=== PATIENT | male | born 1945 | race Caucasian/White ===

== ENCOUNTER → 2021-11-22 12:40 | Outpatient (BNVA) | payer MEDICARE, SELFPAY | PROVIDERS: PCP Internal Medicine; Visit Provider Student in an Organized Health Care Education/Training Program | DX: L40.50 Arthropathic psoriasis, unspecified (principal) | CPT/HCPCS: 99212 ==

== ENCOUNTER 2021-12-13 08:26 | Outpatient (REF) | payer MEDICARE, SELFPAY ==
--- NOTE | ~2021-12-13 | XR_ITS ---
EXAMINATION: XR ANKLE, RIGHT XR ANKLE, LEFT XR FOOT, RIGHT XR FOOT, LEFT CLINICAL INFORMATION: Arthropathic psoriasis. COMPARISON: None. TECHNIQUE: AP, oblique, and lateral views of the right and left ankle. AP, oblique, and lateral views of the right and left foot. FINDINGS: Right Ankle: No acute fracture or dislocation. The ankle mortise is maintained. No joint space narrowing or marginal osteophytes. No osseous erosion. No abnormal soft tissue calcification. Mild circumferential soft tissue swelling. Left Ankle: No acute fracture or dislocation. The ankle mortise is maintained. No joint space narrowing or marginal osteophytes. No osseous erosion. No abnormal soft tissue calcification. Mild circumferential soft tissue swelling. Right Foot: No acute fracture or dislocation. First metatarsophalangeal and hallux sesamoid joint space narrowing with marginal osteophytes. No osseous erosion. Plantar calcaneal spur. Left Foot: No acute fracture or dislocation. First metatarsophalangeal and hallux sesamoid joint space narrowing with marginal osteophytes. Mild degenerative spurring at the dorsal midfoot. No osseous erosion. Tiny plantar calcaneal spur. XR/XR ankle LT 2V IMPRESSION: RIGHT ANKLE: Mild circumferential soft tissue swelling without acute osseous abnormality. LEFT ANKLE: Mild circumferential soft tissue swelling without acute osseous abnormality. 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 No osseous erosion. 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 Mild degenerative spurring at the dorsal midfoot. No osseous erosion.
--- NOTE | ~2021-12-13 | XR_ITS ---
EXAMINATION: XR ANKLE, RIGHT XR ANKLE, LEFT XR FOOT, RIGHT XR FOOT, LEFT CLINICAL INFORMATION: Arthropathic psoriasis. COMPARISON: None. TECHNIQUE: AP, oblique, and lateral views of the right and left ankle. AP, oblique, and lateral views of the right and left foot. FINDINGS: Right Ankle: No acute fracture or dislocation. The ankle mortise is maintained. No joint space narrowing or marginal osteophytes. No osseous erosion. No abnormal soft tissue calcification. Mild circumferential soft tissue swelling. Left Ankle: No acute fracture or dislocation. The ankle mortise is maintained. No joint space narrowing or marginal osteophytes. No osseous erosion. No abnormal soft tissue calcification. Mild circumferential soft tissue swelling. Right Foot: No acute fracture or dislocation. First metatarsophalangeal and hallux sesamoid joint space narrowing with marginal osteophytes. No osseous erosion. Plantar calcaneal spur. Left Foot: No acute fracture or dislocation. First metatarsophalangeal and hallux sesamoid joint space narrowing with marginal osteophytes. Mild degenerative spurring at the dorsal midfoot. No osseous erosion. Tiny plantar calcaneal spur. XR/XR foot LT min 3V IMPRESSION: RIGHT ANKLE: Mild circumferential soft tissue swelling without acute osseous abnormality. LEFT ANKLE: Mild circumferential soft tissue swelling without acute osseous abnormality. 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 No osseous erosion. 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 Mild degenerative spurring at the dorsal midfoot. No osseous erosion.
--- NOTE | ~2021-12-13 | XR_ITS ---
EXAMINATION: XR SACROILIAC JOINTS CLINICAL INFORMATION: Arthropathic psoriasis. COMPARISON: None TECHNIQUE: 3 views of the sacroiliac joints. FINDINGS: No acute fracture or dislocation. No significant sacroiliac joint space narrowing or marginal osteophytes. No osseous erosion. No concerning lytic or blastic osseous lesion. Phleboliths within the pelvis. 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 XR/XR sacroiliac joint min 3V IMPRESSION: Unremarkable sacroiliac joints. 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
--- NOTE | ~2021-12-13 | XR_ITS ---
EXAMINATION: XR HAND/WRIST, RIGHT XR HAND/WRIST, LEFT CLINICAL INFORMATION: Arthropathic psoriasis. COMPARISON: None. TECHNIQUE: AP, oblique, lateral, and scaphoid views of the right and left hand/wrist. FINDINGS: Right Hand/Wrist: No acute fracture or dislocation. Normal carpal alignment. Severe joint space narrowing with subchondral sclerosis and marginal osteophytes at the triscaphe joint with more [id number] joint space narrowing and marginal osteophytes at the 1st carpometacarpal joint as well as scattered throughout the metacarpophalangeal and interphalangeal joints. No osseous erosion. Mild radiocarpal chondrocalcinosis. Left Hand/Wrist: No acute fracture or dislocation. Severe joint space narrowing with marginal osteophytes at the triscaphe joint with more moderate findings at the 1st carpometacarpal joint. [id number] joint space narrowing with marginal osteophytes scattered throughout the metacarpophalangeal and interphalangeal joints, most prominent at the 3rd metacarpophalangeal joint. No significant osseous erosion. Radiocarpal chondrocalcinosis. 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 No osseous erosion. Radiocarpal chondrocalcinosis. LEFT HAND/WRIST: Severe osteoarthritis at the triscaphe joint with more moderate osteoarthritis at the 1st carpometacarpal joint and [id number] osteoarthritis throughout the metacarpophalangeal and interphalangeal joints. No osseous erosion. Radiocarpal chondrocalcinosis.
--- NOTE | ~2021-12-13 | XR_ITS ---
EXAMINATION: XR ANKLE, RIGHT XR ANKLE, LEFT XR FOOT, RIGHT XR FOOT, LEFT CLINICAL INFORMATION: Arthropathic psoriasis. COMPARISON: None. TECHNIQUE: AP, oblique, and lateral views of the right and left ankle. AP, oblique, and lateral views of the right and left foot. FINDINGS: Right Ankle: No acute fracture or dislocation. The ankle mortise is maintained. No joint space narrowing or marginal osteophytes. No osseous erosion. No abnormal soft tissue calcification. Mild circumferential soft tissue swelling. Left Ankle: No acute fracture or dislocation. The ankle mortise is maintained. No joint space narrowing or marginal osteophytes. No osseous erosion. No abnormal soft tissue calcification. Mild circumferential soft tissue swelling. Right Foot: No acute fracture or dislocation. First metatarsophalangeal and hallux sesamoid joint space narrowing with marginal osteophytes. No osseous erosion. Plantar calcaneal spur. Left Foot: No acute fracture or dislocation. First metatarsophalangeal and hallux sesamoid joint space narrowing with marginal osteophytes. Mild degenerative spurring at the dorsal midfoot. No osseous erosion. Tiny plantar calcaneal spur. XR/XR ankle RT 2V IMPRESSION: RIGHT ANKLE: Mild circumferential soft tissue swelling without acute osseous abnormality. LEFT ANKLE: Mild circumferential soft tissue swelling without acute osseous abnormality. 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 No osseous erosion. 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 Mild degenerative spurring at the dorsal midfoot. No osseous erosion.
--- NOTE | ~2021-12-13 | XR_ITS ---
EXAMINATION: XR ANKLE, RIGHT XR ANKLE, LEFT XR FOOT, RIGHT XR FOOT, LEFT CLINICAL INFORMATION: Arthropathic psoriasis. COMPARISON: None. TECHNIQUE: AP, oblique, and lateral views of the right and left ankle. AP, oblique, and lateral views of the right and left foot. FINDINGS: Right Ankle: No acute fracture or dislocation. The ankle mortise is maintained. No joint space narrowing or marginal osteophytes. No osseous erosion. No abnormal soft tissue calcification. Mild circumferential soft tissue swelling. Left Ankle: No acute fracture or dislocation. The ankle mortise is maintained. No joint space narrowing or marginal osteophytes. No osseous erosion. No abnormal soft tissue calcification. Mild circumferential soft tissue swelling. Right Foot: No acute fracture or dislocation. First metatarsophalangeal and hallux sesamoid joint space narrowing with marginal osteophytes. No osseous erosion. Plantar calcaneal spur. Left Foot: No acute fracture or dislocation. First metatarsophalangeal and hallux sesamoid joint space narrowing with marginal osteophytes. Mild degenerative spurring at the dorsal midfoot. No osseous erosion. Tiny plantar calcaneal spur. XR/XR foot RT min 3V IMPRESSION: RIGHT ANKLE: Mild circumferential soft tissue swelling without acute osseous abnormality. LEFT ANKLE: Mild circumferential soft tissue swelling without acute osseous abnormality. 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 No osseous erosion. 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 Mild degenerative spurring at the dorsal midfoot. No osseous erosion.
--- NOTE | ~2021-12-13 | XR_ITS ---
EXAMINATION: XR HAND/WRIST, RIGHT XR HAND/WRIST, LEFT CLINICAL INFORMATION: Arthropathic psoriasis. COMPARISON: None. TECHNIQUE: AP, oblique, lateral, and scaphoid views of the right and left hand/wrist. FINDINGS: Right Hand/Wrist: No acute fracture or dislocation. Normal carpal alignment. Severe joint space narrowing with subchondral sclerosis and marginal osteophytes at the triscaphe joint with more [id number] joint space narrowing and marginal osteophytes at the 1st carpometacarpal joint as well as scattered throughout the metacarpophalangeal and interphalangeal joints. No osseous erosion. Mild radiocarpal chondrocalcinosis. Left Hand/Wrist: No acute fracture or dislocation. Severe joint space narrowing with marginal osteophytes at the triscaphe joint with more moderate findings at the 1st carpometacarpal joint. [id number]-lj-[id number] joint space narrowing with marginal osteophytes scattered throughout the metacarpophalangeal and interphalangeal joints, most prominent at the 3rd metacarpophalangeal joint. No significant osseous erosion. Radiocarpal chondrocalcinosis. 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 No osseous erosion. Radiocarpal chondrocalcinosis. LEFT HAND/WRIST: Severe osteoarthritis at the triscaphe joint with more moderate osteoarthritis at the 1st carpometacarpal joint and [id number] osteoarthritis throughout the metacarpophalangeal and interphalangeal joints. No osseous erosion. Radiocarpal chondrocalcinosis.
[2021-12-13 08:49] LABS: MANUAL DIFF FLAG NO
[2021-12-13 09:06] LABS: Basophils Percent Auto 0.4 % (0-2); Eosinophils Absolute Auto 0.1 X10*3/uL (0.0-0.4); Eosinophils Percent Auto 1.9 % (0-4); Hematocrit 47.4 % (42.0-52.0); Imm Gran Abs Auto 0.03 X10*3/uL (0.00-0.03); Imm Gran Pct Auto 0.4 % (0.0-0.4); Lymphocytes Absolute Auto 1.3 X10*3/uL (1.2-4.9); Lymphocytes Percent Auto 18.9 % (20-40); Mean Corpuscular HGB Conc 33.8 g/dl (31.0-36.0); Mean Corpuscular Hemoglobin 30.7 pg (27.0-33.0); Mean Platelet Volume 9.8 fL (9.4-12.4); Monocytes Absolute Auto 0.9 X10*3/uL (0.1-1.2); Monocytes Percent Auto 12.8 % (2-11); Neutrophils Absolute Auto 4.4 x10*3/uL (2.0-8.3); Neutrophils Percent Auto 65.6 % (45-73); Platelet Count 270 X10*3/uL (160-400); Red Blood Count 5.21 X10*6/uL (4.60-5.80); Red Cell Distribution Width 13.4 % (11.0-16.0); White Blood Count 6.7 X10*3/uL (4.8-10.8)
[2021-12-13 09:30] LABS: Alanine Aminotransferase 19 U/L (0-40); Albumin Level 4.1 g/dL (3.5-5.0); Alkaline Phosphatase 109 U/L (39-117); Anion Gap 15 (12-20); Aspartate Amino Transferase 11 U/L (5-37); Bilirubin Total 0.7 mg/dL (0.0-1.0); Blood Urea Nitrogen 17 mg/dL (9-16); C Reactive Protein 0.37 mg/dL (< or = 0.50); Calcium 9.5 mg/dL (8.4-10.2); Carbon Dioxide 22 mmol/L (22-29); Chloride 104 mmol/L (96-108); Estimated Glomerular Filt Rate > 60; Glucose Random 156 mg/dL (60-115); Potassium 4.4 mmol/L (3.3-5.1); Rheumatoid Factor < 15.0 IU/mL (<15.0); Sodium 137 mmol/L (135-145); Total Protein 7.4 g/dL (6.5-8.0); Uric Acid 10.6 mg/dL (3.4-7.0)
[2021-12-13 09:51] LABS: HBS Num1 1.21 mIU/mL (0-7.99); HBc Num1 0.05 S/CO (0.00-0.79); HBsAGNum1 0.19 S/CO (0.00-0.99); Hepatitis A Antibody IgM 0.18 Index (0-0.79); Hepatitis B Core Antibody Nonreactive (Nonreactive); Hepatitis B Surface Antigen Negative (Negative); ~HepC Num1 0.09 S/CO (0.00-0.79); ~Hepatitis A Antibody IgM Nonreactive (Nonreactive); ~Hepatitis B Surface Antibody NONREACTIVE (Nonreactive); ~Hepatitis C Antibody Nonreactive (Nonreactive)
[2021-12-13 10:08] LABS: Erythrocyte Sedimentation Rate 23 MM/HR (0-15)
[2021-12-16 00:08] LABS: TS Negative Control Passed; TS Panel A 0; TS Panel B 0; TS Positive Control Passed; TSpotTB Negative (Negative)
[2021-12-18 11:56] LABS: HLA B27 Negative (Negative)
[2021-12-18 17:26] LABS: Cyclic Citrullinated Peptide <16 UNITS
== END 2021-12-13 08:27 | disposition home or self-care (01) ==
LOC: HO.LAB 08:26
PROVIDERS: PCP Internal Medicine; Visit Provider Student in an Organized Health Care Education/Training Program
DX: Z11.1 Encounter for screening for respiratory tuberculosis (principal); Z11.59 Encounter for screening for other viral diseases; L40.50 Arthropathic psoriasis, unspecified; M25.541 Pain in joints of right hand
CPT/HCPCS: 36415; 72202; 73110; 73130; 73600; 73630; 80053; 84550; 85025; 85652; 86140; 86200; 86431; 86481; 86704; 86706; 86709; 86803; 86812; 87340

== ENCOUNTER → 2021-12-28 09:12 | Outpatient (BNVA) | payer MEDICARE, SELFPAY | PROVIDERS: PCP Internal Medicine; Visit Provider Student in an Organized Health Care Education/Training Program | DX: L40.50 Arthropathic psoriasis, unspecified (principal); M1A.0390 Idiopathic chronic gout, unspecified wrist, without tophus (tophi); M54.9 Dorsalgia, unspecified | CPT/HCPCS: 99212 ==

== ENCOUNTER 2022-02-05 09:25 | Outpatient (REF) | payer MEDICARE, SELFPAY ==
[2022-02-05 10:01] LABS: MANUAL DIFF FLAG NO
[2022-02-05 10:55] LABS: Basophils Percent Auto 0.6 % (0-2); Eosinophils Absolute Auto 0.1 X10*3/uL (0.0-0.4); Eosinophils Percent Auto 2.9 % (0-4); Hematocrit 44.4 % (42.0-52.0); Hemoglobin 14.9 g/dl (14.0-18.0); Imm Gran Abs Auto 0.02 X10*3/uL (0.00-0.03); Imm Gran Pct Auto 0.4 % (0.0-0.4); Lymphocytes Absolute Auto 1.2 X10*3/uL (1.2-4.9); Lymphocytes Percent Auto 25.5 % (20-40); Mean Corpuscular HGB Conc 33.6 g/dl (31.0-36.0); Mean Corpuscular Hemoglobin 30.8 pg (27.0-33.0); Mean Corpuscular Volume 91.7 fL (80.0-98.0); Mean Platelet Volume 10.2 fL (9.4-12.4); Monocytes Absolute Auto 0.8 X10*3/uL (0.1-1.2); Monocytes Percent Auto 15.9 % (2-11); Neutrophils Absolute Auto 2.6 x10*3/uL (2.0-8.3); Neutrophils Percent Auto 54.7 % (45-73); Platelet Count 232 X10*3/uL (160-400); Red Blood Count 4.84 X10*6/uL (4.60-5.80); Red Cell Distribution Width 13.2 % (11.0-16.0); White Blood Count 4.8 X10*3/uL (4.8-10.8)
[2022-02-05 11:32] LABS: Alanine Aminotransferase 83 U/L (0-40); Albumin Level 4.1 g/dL (3.5-5.0); Alkaline Phosphatase 163 U/L (39-117); Anion Gap 17 (12-20); Aspartate Amino Transferase 37 U/L (5-37); Bilirubin Total 0.7 mg/dL (0.0-1.0); Blood Urea Nitrogen 29 mg/dL (9-16); C Reactive Protein 1.87 mg/dL (< or = 0.50); Calcium 9.3 mg/dL (8.4-10.2); Carbon Dioxide 22 mmol/L (22-29); Chloride 103 mmol/L (96-108); Estimated Glomerular Filt Rate 57; Glucose Random 207 mg/dL (60-115); Potassium 4.8 mmol/L (3.3-5.1); Sodium 137 mmol/L (135-145); Total Protein 7.2 g/dL (6.5-8.0); Uric Acid 9.3 mg/dL (3.4-7.0)
[2022-02-05 11:50] LABS: Erythrocyte Sedimentation Rate 17 MM/HR (0-15)
== END 2022-02-05 09:26 | disposition home or self-care (01) ==
LOC: HO.LAB 09:25
PROVIDERS: PCP Internal Medicine; Visit Provider Student in an Organized Health Care Education/Training Program
DX: M10.9 Gout, unspecified (principal)
CPT/HCPCS: 36415; 80053; 84550; 85025; 85652; 86140

== ENCOUNTER → 2022-02-08 09:18 | Outpatient (BNVA) | payer MEDICARE, SELFPAY | PROVIDERS: PCP Internal Medicine; Referring Provider Internal Medicine; Visit Provider Student in an Organized Health Care Education/Training Program | DX: Z71.85 Encounter for immunization safety counseling (principal); L40.50 Arthropathic psoriasis, unspecified; M1A.0390 Idiopathic chronic gout, unspecified wrist, without tophus (tophi); Z79.631 Long term (current) use of antimetabolite agent | CPT/HCPCS: 99212 ==

== ENCOUNTER 2022-04-28 13:04 | Inpatient (IN) | payer MEDICARE, SELFPAY ==
[2022-04-28] VITALS (14 sets, daily range): BP systolic 78–151; BP diastolic 44–73; PULSE 53–167; RESP 11–21; TEMP 36.4–36.6; O2SAT 93–97; BMI 28.0; BMI 28.1
--- NOTE | ~2022-04-28 | XR_ITS ---
EXAMINATION: XR CHEST CLINICAL INFORMATION: Tachycardia. COMPARISON: 04/29/2017 chest radiographs. TECHNIQUE: Frontal view of the chest was obtained. FINDINGS: No significant abnormality is noted involving the heart, lungs, mediastinum, bony thorax or soft tissues. Right-sided ventriculoperitoneal shunt in place without abnormality. XR/XR chest 1V IMPRESSION: No acute cardiopulmonary process.
--- NOTE | ~2022-04-28 | XR_ITS ---
EXAMINATION: XR CHEST CLINICAL INFORMATION: Worsening hypoxia. COMPARISON: 04/28/2022 chest radiograph. TECHNIQUE: Frontal view of the chest was obtained. 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 No significant abnormality is noted involving the heart, lungs, mediastinum, bony thorax or soft tissues. XR/XR chest 1V IMPRESSION: No acute cardiopulmonary process.
--- NOTE | ~2022-04-28 | XR_ITS ---
EXAMINATION: XR CHEST CLINICAL INFORMATION: Hypoxia. Effusions. COMPARISON: 05/02/2022 TECHNIQUE: Frontal view of the chest was obtained. FINDINGS: RESPIRATORY THERAPY AIDE shunt tubing overlies the right hemithorax. Cardiac leads overlie the chest. The lungs are well expanded. Persistent left basilar airspace opacities. Small bilateral pleural effusions. The left effusion is slightly decreased from prior. Mild hazy perihilar opacities. No pneumothorax. The cardiomediastinal silhouette is within normal limits with a calcified aorta. XR/XR chest 1V IMPRESSION: Small bilateral pleural effusions. The left effusion is slightly decreased from prior. Persistent left basilar airspace opacities. Mild perihilar opacities are nonspecific. This could be associated with mild edema.
--- NOTE | ~2022-04-28 | CT_ITS ---
EXAMINATION: CT CHEST WITHOUT CONTRAST CT ABDOMEN AND PELVIS WITHOUT CONTRAST CLINICAL INFORMATION: Reason for Exam Leukocytosis . COMPARISON: No pertinent prior studies are available for comparison. TECHNIQUE: Multidetector volumetric imaging was performed from the thoracic inlet through the pubic symphysis. Sagittal and coronal images were reformatted. This CT examination was performed using dose optimization techniques as appropriate, variously including the following: *Automated exposure control *Adjustment of mA and/or kV according to patient size (this includes techniques or standardized protocols for targeted exams where dose is matched to indication/reason for exam; i.e. extremities or head) *Use of iterative reconstruction technique DOSE: 1263 mGy-cm FINDINGS: -CHEST- LUNG: Dependent bibasilar atelectasis is evident in the lower lobes bilaterally. No consolidation. Central airways are clear. No pulmonary nodules are appreciable bronchiectasis. MEDIASTINUM: Calcific atherosclerosis is present in the thoracic aorta is normal in caliber. Calcifications are present in the coronary arteries. Global cardiomegaly. No pericardial effusion. Thyroid gland is unremarkable. No mediastinal adenopathy. PERICARDIUM/PLEURA: No significant effusion. No pleural mass or thickening. CHEST WALL/AXILLA: Old healed right anterior rib fractures are again noted. No acute chest wall abnormalities. No axillary adenopathy. Mild gynecomastia. DOOR OPENER shunt tubing extends over the right anterior chest wall -ABDOMEN/PELVIS- LIVER, GALLBLADDER, BILIARY TREE: The liver is normal in size, shape, and attenuation. No focal hepatic lesion or biliary ductal dilatation is present. Cholelithiasis is noted with a dominant 2.2 cm gallstone at the gallbladder neck. The gallbladder wall is thickened and the gallbladder is distended with surrounding pericholecystic fat stranding and trace fluid, concerning for acute cholecystitis. No biliary ductal dilatation. PANCREAS: Normal; no mass or surrounding fluid. SPLEEN: Normal size. No focal lesion. ADRENAL GLANDS: Normal; no mass. KIDNEYS AND URETERS: Mild bilateral renal cortical atrophy. Multiple calculi are evident within renal calyces bilaterally 5 mm on the left within a lower pole calyx and 6 mm on the right within a calyx in the interpolar region. No hydronephrosis or hydroureter. No ureteral calculi. Multiple cystic-appearing renal lesions are evident bilaterally cyst at the lateral aspect of the interpolar region of the right kidney. No recommended imaging follow up for this lesion. There is a hyperdense 9 mm cyst at the left lower pole anteriorly, likely a hemorrhagic or proteinaceous material. There is a exophytic cyst at the lower pole the left kidney. BLADDER: Unremarkable. GASTROINTESTINAL TRACT: Small duodenal diverticulum. Stomach, small bowel, and colon are normal in caliber. No bowel wall thickening. Severe colonic diverticulosis is most pronounced in the descending and sigmoid colon. No acute diverticulitis. Appendix is normal. No intraperitoneal free air or free fluid. ABDOMINAL WALL: DOOR OPENER shunt tubing terminates within the right midabdomen. No CSF-david. No significant hernias are identified. VASCULATURE: Calcific atherosclerosis is present in the abdominal aorta and iliac arteries. No aneurysmal dilatation. LYMPH NODES: No lymphadenopathy. . PELVIC VISCERA: Prostate gland measures 4.8 cm in diameter, borderline enlarged. OSSEUS STRUCTURES: There is mild to moderate left convex scoliosis in the lumbar spine with moderate to severe multilevel degenerative spondylosis in this region. More mild degenerative disc disease in the thoracic spine. No acute fractures. Mild osteoarthritis in the hips and SI joints. CT/CT chest wo IV con IMPRESSION: 1. Cholelithiasis with an inflamed, distended gallbladder, most consistent with acute cholecystitis. 2. Dependent atelectasis in the lower lobes. Otherwise, no acute pulmonary findings. 3. Cardiomegaly. 4. Severe colonic diverticulosis without evidence of acute diverticulitis. 5. Bilateral nonobstructing renal calculi.
--- NOTE | ~2022-04-28 | US_ITS ---
EXAMINATION: US ABDOMEN LIMITED CLINICAL INFORMATION: Acute cholecystitis on CT scan. COMPARISON: None TECHNIQUE: Real-time imaging of the gallbladder only. FINDINGS: GALLBLADDER: The gallbladder is abnormal with a thickened wall with pericholecystic fluid, stones and echogenic bile. US/US abdomen limited IMPRESSION: The findings on CT as well as is ultrasound of both consistent with acute cholecystitis.
--- NOTE | ~2022-04-28 | CT_ITS ---
PROCEDURE: CT GUIDED CYSTOSTOMY DRAINAGE AND CATHETER PLACEMENT CLINICAL INFORMATION: Acute cholecystitis. COMPARISON: Ultrasound abdomen limited from 04/28/2022. TECHNIQUE: Following explaining CT fluoroscopy-guided cholecystostomy procedure, benefits and risks, a written consent was obtained. Patient was placed in the semi left decubitus position and preliminary CT imaging was obtained. Lead markers were placed on an optimal slice repeat CT imaging was obtained. An optimal marker was selected and marked on the skin along the right lateral abdomen. The area was prepped and draped in usual sterile manner with 2% chlorhexidine solution. 1% lidocaine was administered at puncture site. Through a small skin incision a 5 [place] Yueh catheter was advanced from the skin incision through a small segment of right hepatic lobe into the gallbladder. After observing bilious return, stylet was withdrawn and 0.035 J-wire was advanced into the gallbladder and the sheath was removed. Over the guidewire an 8.5 [place] APD catheter with stiffener was introduced. After advancing the catheter 8 to 10 cm, the stiffener was loosened and the catheter was pushed over the guidewire. The stiffener and the guidewire were removed and repeat CT imaging was obtained. After observing the pigtail catheter within the gallbladder lumen the string was pulled and a tight pigtail configuration was obtained in the catheter. The catheter was subsequently connected to a vacuum bottle via connecting cannula. The catheter was anchored to the skin with 3-0 nonabsorbable nylon sutures followed by sterile dressing. Patient tolerated procedure extremely well. No conscious sedation was administered however patient was monitored by IR nursing. This CT examination was performed using dose optimization techniques as appropriate, variously including the following: *Automated exposure control *Adjustment of mA and/or kV according to patient size (this includes techniques or standardized protocols for targeted exams where dose is matched to indication/reason for exam; i.e. extremities or head) *Use of iterative reconstruction technique DLP: 573 mGy-cm FINDINGS: On preliminary CT imaging there is a dilated gallbladder with heterogeneous material within the gallbladder, gallbladder wall thickening and calcified stone. On CT fluoroscopy guidance a 5 [place] APD catheter was advanced through the right hepatic lobe into the gallbladder. The pigtail lies within the gallbladder on repeat CT imaging. There was a immediate bilious drainage noted within the bowel. CT/CT guided drainage IMPRESSION: Successful CT fluoroscopy-guided cholecystostomy and drainage catheter placement without any complications.
--- NOTE | ~2022-04-28 | XR_ITS ---
EXAMINATION: XR CHEST CLINICAL INFORMATION: Shortness of breath COMPARISON: Chest 04/29/2022 TECHNIQUE: Frontal view of the chest was obtained. FINDINGS: Small bilateral pleural effusions with accompanying airspace opacities, more pronounced on the left. Diffuse bronchial wall thickening. No pneumothorax. Stable cardiomediastinal silhouette. XR/XR chest 1V IMPRESSION: * Small bilateral pleural effusions with accompanying airspace opacities, more pronounced on the left * Diffuse bronchial wall thickening.
--- NOTE | ~2022-04-28 | CT_ITS ---
EXAMINATION: CT CHEST WITHOUT CONTRAST CT ABDOMEN AND PELVIS WITHOUT CONTRAST CLINICAL INFORMATION: Reason for Exam Leukocytosis . COMPARISON: No pertinent prior studies are available for comparison. TECHNIQUE: Multidetector volumetric imaging was performed from the thoracic inlet through the pubic symphysis. Sagittal and coronal images were reformatted. This CT examination was performed using dose optimization techniques as appropriate, variously including the following: *Automated exposure control *Adjustment of mA and/or kV according to patient size (this includes techniques or standardized protocols for targeted exams where dose is matched to indication/reason for exam; i.e. extremities or head) *Use of iterative reconstruction technique DOSE: 1263 mGy-cm FINDINGS: -CHEST- LUNG: Dependent bibasilar atelectasis is evident in the lower lobes bilaterally. No consolidation. Central airways are clear. No pulmonary nodules are appreciable bronchiectasis. MEDIASTINUM: Calcific atherosclerosis is present in the thoracic aorta is normal in caliber. Calcifications are present in the coronary arteries. Global cardiomegaly. No pericardial effusion. Thyroid gland is unremarkable. No mediastinal adenopathy. PERICARDIUM/PLEURA: No significant effusion. No pleural mass or thickening. CHEST WALL/AXILLA: Old healed right anterior rib fractures are again noted. No acute chest wall abnormalities. No axillary adenopathy. Mild gynecomastia. APPLIED EXERCISE PHYSIOLOGIST shunt tubing extends over the right anterior chest wall -ABDOMEN/PELVIS- LIVER, GALLBLADDER, BILIARY TREE: The liver is normal in size, shape, and attenuation. No focal hepatic lesion or biliary ductal dilatation is present. Cholelithiasis is noted with a dominant 2.2 cm gallstone at the gallbladder neck. The gallbladder wall is thickened and the gallbladder is distended with surrounding pericholecystic fat stranding and trace fluid, concerning for acute cholecystitis. No biliary ductal dilatation. PANCREAS: Normal; no mass or surrounding fluid. SPLEEN: Normal size. No focal lesion. ADRENAL GLANDS: Normal; no mass. KIDNEYS AND URETERS: Mild bilateral renal cortical atrophy. Multiple calculi are evident within renal calyces bilaterally 5 mm on the left within a lower pole calyx and 6 mm on the right within a calyx in the interpolar region. No hydronephrosis or hydroureter. No ureteral calculi. Multiple cystic-appearing renal lesions are evident bilaterally cyst at the lateral aspect of the interpolar region of the right kidney. No recommended imaging follow up for this lesion. There is a hyperdense 9 mm cyst at the left lower pole anteriorly, likely a hemorrhagic or proteinaceous material. There is a exophytic cyst at the lower pole the left kidney. BLADDER: Unremarkable. GASTROINTESTINAL TRACT: Small duodenal diverticulum. Stomach, small bowel, and colon are normal in caliber. No bowel wall thickening. Severe colonic diverticulosis is most pronounced in the descending and sigmoid colon. No acute diverticulitis. Appendix is normal. No intraperitoneal free air or free fluid. ABDOMINAL WALL: APPLIED EXERCISE PHYSIOLOGIST shunt tubing terminates within the right midabdomen. No CSF-david. No significant hernias are identified. VASCULATURE: Calcific atherosclerosis is present in the abdominal aorta and iliac arteries. No aneurysmal dilatation. LYMPH NODES: No lymphadenopathy. . PELVIC VISCERA: Prostate gland measures 4.8 cm in diameter, borderline enlarged. OSSEUS STRUCTURES: There is mild to moderate left convex scoliosis in the lumbar spine with moderate to severe multilevel degenerative spondylosis in this region. More mild degenerative disc disease in the thoracic spine. No acute fractures. Mild osteoarthritis in the hips and SI joints. CT/CT abdomen pelvis wo IV con IMPRESSION: 1. Cholelithiasis with an inflamed, distended gallbladder, most consistent with acute cholecystitis. 2. Dependent atelectasis in the lower lobes. Otherwise, no acute pulmonary findings. 3. Cardiomegaly. 4. Severe colonic diverticulosis without evidence of acute diverticulitis. 5. Bilateral nonobstructing renal calculi.
--- NOTE | 2022-04-28 13:19 | ECG_ITS ---
Test Reason : TACHYCARDIA Blood Pressure : / mmHG Vent. Rate : 100 BPM Atrial Rate : 100 BPM P-R Int : 142 ms QRS Dur : 080 ms QT Int : 348 ms P-R-T Axes : 037 023 022 degrees QTc Int : 448 ms Normal sinus rhythm Normal ECG When compared with ECG of 29-APR-2017 15:20, No significant change was found Referred By: Luana Barnes Electronically Signed By:Martínez Gee
--- NOTE | 2022-04-28 13:28 | ED.GENADULT ---
HPI - General Adult General Chief complaint: Fall Stated complaint: WEAKNESS,TACHY,LOWERED SELF TO FLOOR FOR 36-48 HRS Time Seen by Provider: 04/28/22 13:08 Source: patient and EMS Mode of arrival: EMS History of Present Illness HPI narrative: 77-year-old male with past medical history of ADHD, diabetes, HTN, JASE, restless leg syndrome, chronic back pain, 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 States due to chronic back pain in generalized fatigue was unable to lift himself. Daughter called EMS for well check as patient missed an appointment today, suspected to be on the ground for about 36 hours. Per EMS patient in ?New onset AFib. Denies known injury, head trauma, LOC, CP/SOB, abdominal pain, nausea/vomiting, diarrhea Onset (ago): day(s) Related Data Home Medications Medication Instructions Recorded Confirmed amlodipine 10 mg tablet 10 mg PO DAILY 11/22/21 04/28/22 atorvastatin 20 mg tablet 20 mg PO DAILY 11/22/21 04/28/22 cholecalciferol (vitamin D3) 125 125 mcg PO DAILY 11/22/21 04/28/22 mcg (5,000 unit) capsule folic acid 1 mg tablet 1 mg PO DAILY 11/22/21 04/28/22 furosemide 40 mg tablet 40 mg PO DAILY 11/22/21 04/28/22 metformin 500 mg tablet 1,000 mg PO BID 11/22/21 04/28/22 metoprolol tartrate 50 mg tablet 50 mg PO BID 11/22/21 04/28/22 allopurinol 100 mg tablet 100 mg PO DAILY 04/28/22 04/28/22 glipizide 10 mg tablet, extended 1 tab PO BID 04/28/22 04/28/22 release 24 hr insulin glargine 100 unit/mL (3 40 unit subcut BEDTIME 04/28/22 04/28/22 mL) subcutaneous pen (Lantus Solostar U-100 Insulin) Previous Rx's Medication Instructions Recorded etanercept 50 mg/mL (1 mL) 50 mg subcut QWEEK #12 mL 11/28/21 subcutaneous pen injector (Enbrel SureLuizick) colchicine 0.6 mg tablet 0.6 mg PO DAILY #90 tabs 12/28/21 cyclobenzaprine 5 mg tablet 5 mg PO BEDTIME PRN muscle spasm 12/28/21 #10 tabs Allergies Allergy/AdvReac Type Severity Reaction Status Date / Time famotidine [From Pepcid] Allergy Intermediate Hallucinati Verified 02/08/22 09:26 ons Review of Systems Review of Systems: Constitutional: No Fever, No Chills, No Fatigue, No Malaise ENT/Mouth: No Ear Pain, No Nasal Congestion, No sore throat, No Rhinorrhea, No Swallowing Difficulty Eyes: No Eye Pain, No Swelling, No Redness Cardiovascular: No Chest Pain, No SOB, No Edema, No Palpitations Respiratory: No Cough, No Sputum, No Dyspnea Gastrointestinal: No Nausea, No Vomiting, No Diarrhea, No Constipation, No Abdominal pain Genitourinary: No Dysuria, No Urinary Frequency, No Hematuria, No Flank Pain Musculoskeletal: + joint pain, + Myalgias, No Joint Swelling Skin: No Skin Lesions, No rash Neuro: + Weakness, No Dizziness, No Headache Yes all other systems are reviewed and are negative Constitutional: Constitutional: Reports as per [facility] Past Medical History Attestation statement: The following information was validated with the patient. Medical History ADHD Diabetes Diabetic retinopathy Encounter for screening for other viral diseases Hypertension Normal pressure hydrocephalus Obstructive sleep apnea Psoriasis Restless leg syndrome Screening-pulmonary TB Social History Social History Household Members Other:: lives alone Housing: House Alcohol intake: former Patient Tobacco Use Status: Never used Tobacco Smoked in Last 30 Days: No e-Cigarette/Vaping Use: Never Used Use of substances other than those prescribed or required for medical reasons: No Advance Directives: No Advance Directives Information Provided: No service: No Current occupational status: 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 Physical Exam ED Vital Signs: Vital Signs - 24 hr 04/28/22 13:20 04/28/22 14:00 04/28/22 14:13 Temperature 97.6 F Pulse Rate 167 H 53 96 Respiratory Rate 18 16 Blood Pressure 97/55 L 151/44 H 79/46 L Pulse Oximetry 97 96 Oxygen Delivery Method Room Air Room Air 04/28/22 14:16 04/28/22 14:17 04/28/22 14:55 Temperature Pulse Rate 99 99 Respiratory Rate Blood Pressure 89/55 L 98/47 L 78/51 L Pulse Oximetry Oxygen Delivery Method 04/28/22 15:32 04/28/22 16:00 04/28/22 17:26 Temperature 97.8 F 98 F Pulse Rate 90 88 Respiratory Rate 16 16 Blood Pressure 91/55 L 101/58 L 95/64 Pulse Oximetry 94 Oxygen Delivery Method Room Air 04/28/22 17:59 Temperature Pulse Rate 82 Respiratory Rate 11 L Blood Pressure 89/56 L Pulse Oximetry 93 Oxygen Delivery Method Room Air BMI result Body Mass Index 28.0 Const General: cooperative, no acute distress and diaphoretic Orientation/consciousness: patient oriented x3 Limitations: no limitations HENMT Head: Yes normal to inspection and Yes atraumatic Ears: hearing grossly normal bilaterally General nose exam: Normal external nose present Face and sinus: Yes normal facial exam Eyes General: appearance normal, both eyes and all related structures Pupils: Equal, round and reactive pupils present EOM: EOMs intact bilaterally Neck Neck: Yes normal visual inspection, Yes no meningeal signs and Yes supple Resp Effort & Inspection: normal respiratory effort and no respiratory distress Auscultation: clear to auscultation bilaterally Cardio Rate: regular rate Heart sounds: S1 normal heart sound present and S2 normal heart sound present GI Inspection: Yes normal to inspection Palpation (GI): Soft to palpation, nontender, no guarding and not rigid Back/Spine/Pelvis Other: No midline thoracic/lumbar spinous tenderness/step-off or deformity Skin Rashes: no rashes Wounds: no wounds Neuro General: patient oriented x3, tone normal, moves all extremities, no meningeal signs, no focal motor deficits and CN's II-XI intact bilaterally Cranial nerves: Yes Equal, round and reactive pupils present Motor exam (neuro): 5/5 motor strength present throughout and no tremor noted Extrem General: Yes normal to inspection, Yes no pedal edema and Yes no calf tenderness Course Course Course Narrative: -1335--while obtaining EKG patient broke now currently in sinus rhythm at a rate of 100 -1430--noted leukocytosis of 34.7 > empiric IV Zosyn ordered. Due to patient being overweight, ideal body weight 71 kg x 30cc/kg = 2,130cc -COVID 19/influenza negative -1530--GAIL with BUN of 58, creatinine of 2.56. Lactic acid elevated at 3.3. CPK 446. -chest x-ray unremarkable -155--UA with blood/RBCs, trace leuk esterase, contaminated >> will obtain CT chest/abdomen/pelvis to rule out further infectious etiology -164--initial troponin 43 > will obtain 3 hour repeat. Patient's BP is improving with IVF. Patient noted to be satting 90% on RA, 93% on 2L NC, slight bibasilar crackles noted, case discussed with Dr. Vincent who is evaluating patient >> Dr. Vincent recommended gentle IVF and repeat labs -171--CT chest wo IV con/CT abdomen pelvis wo IV con IMPRESSION: 1.? Cholelithiasis with an inflamed, distended gallbladder, most consistent with acute cholecystitis. 2.? Dependent atelectasis in the lower lobes. Otherwise, no acute pulmonary findings. 3.? Cardiomegaly. 4.? Severe colonic diverticulosis without evidence of acute diverticulitis. 5.? Bilateral nonobstructing renal calculi. > will consult General surgery. Dr. Fontanez aware recommended hospitalist admission and transfer to surgical service when more stable. Patient will likely need percutaneous drain. Plan to admit for further management -173--repeat lactic acid 7.6, drawn directly above running IV, likely inaccurate will obtain repeat including VBG. -H&H dropped to 10.3/30.6 likely dilutional. Hospitalist cannot take admission as patient too acute, consulted allergist/pediatric pulmonologist Dr. Metz who accepted patient. -182--BP w/mild improvement to 101/67. Repeat lactic 1.3 & mild improvement in leukocytosis of 21.9. Will hold on central line at this time Medications Administered Generic Name Dose Route Start Last Admin Trade Name Freq PRN Reason Stop Dose Admin Vancomycin HCl 2,000 mg in 520 mls @ 260 mls/hr 04/28/22 17:00 04/28/22 18:37 Vancomycin/Ns IV 04/28/22 18:59 260 mls/hr ONCE ONE Administration Discontinued Medications Generic Name Dose Route Start Last Admin Trade Name Freq PRN Reason Stop Dose Admin Sodium Chloride 1,000 mls @ 999 mls/hr 04/28/22 13:30 04/28/22 15:23 Ns IV 04/28/22 14:30 Infused .Q1H1M BENIGNO Infusion Lactated Ringer's 1,000 mls @ 999 mls/hr 04/28/22 13:45 04/28/22 14:45 Lr IV 04/28/22 14:45 Infused .Q1H1M BENGINO Infusion Piperacillin Sod/Tazobactam 100 mls @ 200 mls/hr 04/28/22 14:28 04/28/22 15:14 Sod 4.5 gm/ Sodium Chloride IV 04/28/22 14:57 Infused ONCE ONE Infusion Lactated Ringer's 250 mls @ 999 mls/hr 04/28/22 14:45 04/28/22 16:49 Lr IV 04/28/22 15:00 Infused .Q16M BENIGNO Infusion Vancomycin HCl 2,000 mg in 520 mls @ 260 mls/hr 04/28/22 16:39 04/28/22 16:51 Vancomycin/Ns IV 04/28/22 18:38 Not Given ONCE ONE Lactated Ringer's 1,000 mls @ 125 mls/hr 04/28/22 17:00 04/28/22 18:18 Lr IVCONT 125 mls/hr .Q8H BENIGNO Administration Medical Decision Making Medical Decision Making MDM Narrative: 77-year-old male with past medical history of ADHD, diabetes, HTN, JASE, restless leg syndrome, chronic back pain, 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 On exam hypotensive, tachycardic in the 160s with AFib on the monitor, diaphoretic, no focal neuro deficits, abdomen soft/nontender, no midline spinous tenderness. Concern for dehydration/metabolic abnormalities including rhabdomyolysis. Rule out infectious etiology. Low suspicion for severe sepsis at this time, VS abnormalities likely from dehydration/arrhythmia rather than infection. Low suspicion for ICH/CVA Plan: EKG, labs, UA, CXR, IVF, anticipated admission Differential Diagnosis Differential Diagnoses: The differential diagnosis associated with the presentation includes As above Admission/Observation Consideration of admission/observation: Escalation of care including admission/observation considered Lab Data MDM Lab Attestation statement: I reviewed the patient's lab results. 04/28/22 14:00 02/04/23 14:01 Labs: Lab Results 04/28/22 04/28/22 04/28/22 Range/Units 13:43 13:43 14:00 WBC 34.7 H* (4.8-10.8) X10*3/uL RBC 4.56 L (4.60-5.80) X10*6/uL Hgb 14.2 (14.0-18.0) g/dl Hct 42.5 (42.0-52.0) % MCV 93.2 (80.0-98.0) fL MCH 31.1 (27.0-33.0) pg MCHC 33.4 (31.0-36.0) g/dl RDW 13.3 (11.0-16.0) % Plt Count 220 (160-400) X10*3/uL MPV 11.1 (9.4-12.4) fL Immature Gran % (Auto) Cancelled Neut % (Auto) Cancelled Lymph % (Auto) Cancelled [place] % (Auto) Cancelled Eos % (Auto) Cancelled Baso % (Auto) Cancelled Lymph # (Auto) Cancelled [place] # (Auto) Cancelled Eos # (Auto) Cancelled Baso # (Auto) Cancelled Abs Immat Gran (auto) Cancelled Absolute Neuts (auto) Cancelled Absolute Nucleated RBC 0.000 (0.0-0.012) X10*3/uL Nucleated RBC % (auto) 0.0 (0.0-0.2) /100WBC Neutrophils % (Manual) 90 H (45-73) % Band Neutrophils % 4 (3-5) % Lymphocytes % (Manual) (20-40) % Monocytes % (Manual) 6 (2-11) % Abs Neuts (Manual) 32.6 H (2.0-8.3) X10*3/uL Lymphocytes # (Manual) (1.2-4.9) X10*3/uL Monocytes # (Manual) 2.1 H (0.1-1.2) X10*3/uL Toxic Vacuolation PRESENT Dohle Bodies Platelet Estimate NORMAL (NORMAL) Large Platelets PRESENT Plt Morphology Comment RBC Morphology NOTED Polychromasia 1+ (0-2) /OIF [place] Cells 1+ (0-2) /OIF PT (10.0-13.1) SEC INR (0.9-1.1) VBG pH (7.32-7.43) VBG pCO2 mmHg VBG pO2 mmHg VBG HCO3 (22-26) mmol/L VBG O2 Saturation % VBG Base Excess mmol/L Sodium (135-145) mmol/L Potassium (3.3-5.1) mmol/L Chloride (96-108) mmol/L Carbon Dioxide (22-29) mmol/L Anion Gap (12-20) BUN (9-16) mg/dL Creatinine (0.5-1.4) mg/dL Estim Creat Clear Calc Estimated GFR Random Glucose (60-115) mg/dL Lactic Acid (0.5-2.0) mmol/L Lactic Acid F/U @ 2Hr (0.5-2.0) mmol/L Calcium (8.4-10.2) mg/dL Magnesium (1.6-2.6) mg/dL Total Bilirubin (0.0-1.0) mg/dL Direct Bilirubin (0.0-0.5) mg/dL AST (5-37) U/L ALT (0-40) U/L Alkaline Phosphatase (39-117) U/L Total Creatine Kinase (38-174) U/L Troponin I High Sens (<3.5-35.0) ng/L B-Natriuretic Peptide (<100) pg/mL Total Protein (6.5-8.0) g/dL Albumin (3.5-5.0) g/dL Prealbumin (20-40) mg/dL Lipase (8-78) U/L Urine Color Urine Appearance Urine pH (5.0-9.0) Ur Specific [place] (1.005-1.025) Urine Protein (Neg-Trace) mg/dL Urine Glucose (UA) (Negative) mg/dL Urine Ketones (Negative) mg/dL Urine Blood (Negative) Urine Nitrite (Negative) Ur Leukocyte Esterase (Negative) Urine RBC (0-2) /HPF Urine WBC (0-5) /HPF Ur Squamous Epith Cells (0-2) /HPF Urine Bacteria (None Seen) Hyaline Casts (0-2) /LPF COVID-19 (HELENA) Negative (Negative) COVID-19 Clin Com See Note Influenza Type A (JAMES) Negative (Negative) Influenza Type B (JAMES) Negative (Negative) Influenza A & B Note See Note 04/28/22 04/28/22 04/28/22 Range/Units 14:00 14:00 14:00 WBC (4.8-10.8) X10*3/uL RBC (4.60-5.80) X10*6/uL Hgb (14.0-18.0) g/dl Hct (42.0-52.0) % MCV (80.0-98.0) fL MCH (27.0-33.0) pg MCHC (31.0-36.0) g/dl RDW (11.0-16.0) % Plt Count (160-400) X10*3/uL MPV (9.4-12.4) fL Immature Gran % (Auto) Neut % (Auto) Lymph % (Auto) [place] % (Auto) Eos % (Auto) Baso % (Auto) Lymph # (Auto) [place] # (Auto) Eos # (Auto) Baso # (Auto) Abs Immat Gran (auto) Absolute Neuts (auto) Absolute Nucleated RBC (0.0-0.012) X10*3/uL Nucleated RBC % (auto) (0.0-0.2) /100WBC Neutrophils % (Manual) (45-73) % Band Neutrophils % (3-5) % Lymphocytes % (Manual) (20-40) % Monocytes % (Manual) (2-11) % Abs Neuts (Manual) (2.0-8.3) X10*3/uL Lymphocytes # (Manual) (1.2-4.9) X10*3/uL Monocytes # (Manual) (0.1-1.2) X10*3/uL Toxic Vacuolation Dohle Bodies Platelet Estimate (NORMAL) Large Platelets Plt Morphology Comment RBC Morphology Polychromasia /OIF [place] Cells /OIF PT (10.0-13.1) SEC INR (0.9-1.1) VBG pH (7.32-7.43) VBG pCO2 mmHg VBG pO2 mmHg VBG HCO3 (22-26) mmol/L VBG O2 Saturation % VBG Base Excess mmol/L Sodium (135-145) mmol/L Potassium (3.3-5.1) mmol/L Chloride (96-108) mmol/L Carbon Dioxide (22-29) mmol/L Anion Gap (12-20) BUN (9-16) mg/dL Creatinine (0.5-1.4) mg/dL Estim Creat Clear Calc Estimated GFR Random Glucose (60-115) mg/dL Lactic Acid 3.3 H* (0.5-2.0) mmol/L Lactic Acid F/U @ 2Hr (0.5-2.0) mmol/L Calcium (8.4-10.2) mg/dL Magnesium (1.6-2.6) mg/dL Total Bilirubin (0.0-1.0) mg/dL Direct Bilirubin (0.0-0.5) mg/dL AST (5-37) U/L ALT (0-40) U/L Alkaline Phosphatase (39-117) U/L Total Creatine Kinase (38-174) U/L Troponin I High Sens 43.0 H (<3.5-35.0) ng/L B-Natriuretic Peptide 349 H (<100) pg/mL Total Protein (6.5-8.0) g/dL Albumin (3.5-5.0) g/dL Prealbumin (20-40) mg/dL Lipase (8-78) U/L Urine Color Urine Appearance Urine pH (5.0-9.0) Ur Specific [place] (1.005-1.025) Urine Protein (Neg-Trace) mg/dL Urine Glucose (UA) (Negative) mg/dL Urine Ketones (Negative) mg/dL Urine Blood (Negative) Urine Nitrite (Negative) Ur Leukocyte Esterase (Negative) Urine RBC (0-2) /HPF Urine WBC (0-5) /HPF Ur Squamous Epith Cells (0-2) /HPF Urine Bacteria (None Seen) Hyaline Casts (0-2) /LPF COVID-19 (HELENA) (Negative) COVID-19 Clin Com Influenza Type A (JAMES) (Negative) Influenza Type B (JAMES) (Negative) Influenza A & B Note 04/28/22 04/28/22 04/28/22 Range/Units 14:01 15:17 15:17 WBC (4.8-10.8) X10*3/uL RBC (4.60-5.80) X10*6/uL Hgb (14.0-18.0) g/dl Hct (42.0-52.0) % MCV (80.0-98.0) fL MCH (27.0-33.0) pg MCHC (31.0-36.0) g/dl RDW (11.0-16.0) % Plt Count (160-400) X10*3/uL MPV (9.4-12.4) fL Immature Gran % (Auto) Neut % (Auto) Lymph % (Auto) [place] % (Auto) Eos % (Auto) Baso % (Auto) Lymph # (Auto) [place] # (Auto) Eos # (Auto) Baso # (Auto) Abs Immat Gran (auto) Absolute Neuts (auto) Absolute Nucleated RBC (0.0-0.012) X10*3/uL Nucleated RBC % (auto) (0.0-0.2) /100WBC Neutrophils % (Manual) (45-73) % Band Neutrophils % (3-5) % Lymphocytes % (Manual) (20-40) % Monocytes % (Manual) (2-11) % Abs Neuts (Manual) (2.0-8.3) X10*3/uL Lymphocytes # (Manual) (1.2-4.9) X10*3/uL Monocytes # (Manual) (0.1-1.2) X10*3/uL Toxic Vacuolation Dohle Bodies Platelet Estimate (NORMAL) Large Platelets Plt Morphology Comment RBC Morphology Polychromasia /OIF [place] Cells /OIF PT 13.9 H (10.0-13.1) SEC INR 1.2 H (0.9-1.1) VBG pH (7.32-7.43) VBG pCO2 mmHg VBG pO2 mmHg VBG HCO3 (22-26) mmol/L VBG O2 Saturation % VBG Base Excess mmol/L Sodium 135 (135-145) mmol/L Potassium 4.0 (3.3-5.1) mmol/L Chloride 100 (96-108) mmol/L Carbon Dioxide 15 L (22-29) mmol/L Anion Gap 24 H (12-20) BUN 58 H (9-16) mg/dL Creatinine 2.56 H (0.5-1.4) mg/dL Estim Creat Clear Calc 26.6 Estimated GFR 25 Random Glucose 248 H (60-115) mg/dL Lactic Acid (0.5-2.0) mmol/L Lactic Acid F/U @ 2Hr (0.5-2.0) mmol/L Calcium 8.5 D (8.4-10.2) mg/dL Magnesium 1.9 (1.6-2.6) mg/dL Total Bilirubin 1.9 H (0.0-1.0) mg/dL Direct Bilirubin 1.1 H (0.0-0.5) mg/dL AST 35 (5-37) U/L ALT 36 (0-40) U/L Alkaline Phosphatase 263 H (39-117) U/L Total Creatine Kinase 446 H (38-174) U/L Troponin I High Sens (<3.5-35.0) ng/L B-Natriuretic Peptide (<100) pg/mL Total Protein 6.0 L (6.5-8.0) g/dL Albumin 3.1 L (3.5-5.0) g/dL Prealbumin (20-40) mg/dL Lipase 19 (8-78) U/L Urine Color Dark Yellow Urine Appearance Cloudy Urine pH 5.0 (5.0-9.0) Ur Specific [place] 1.020 (1.005-1.025) Urine Protein 100 (2+) H (Neg-Trace) mg/dL Urine Glucose (UA) Negative (Negative) mg/dL Urine Ketones Trace (Negative) mg/dL Urine Blood Moderate (2+) H (Negative) Urine Nitrite Negative (Negative) Ur Leukocyte Esterase Trace H (Negative) Urine RBC 3-5 H (0-2) /HPF Urine WBC 0-5 (0-5) /HPF Ur Squamous Epith Cells 6-10 (0-2) /HPF Urine Bacteria None Seen (None Seen) Hyaline Casts 3-5 (0-2) /LPF COVID-19 (HELENA) (Negative) COVID-19 Clin Com Influenza Type A (JAMES) (Negative) Influenza Type B (JAMES) (Negative) Influenza A & B Note 04/28/22 04/28/22 04/28/22 Range/Units 17:07 17:07 17:07 WBC (4.8-10.8) X10*3/uL RBC (4.60-5.80) X10*6/uL Hgb (14.0-18.0) g/dl Hct (42.0-52.0) % MCV (80.0-98.0) fL MCH (27.0-33.0) pg MCHC (31.0-36.0) g/dl RDW (11.0-16.0) % Plt Count (160-400) X10*3/uL MPV (9.4-12.4) fL Immature Gran % (Auto) Neut % (Auto) Lymph % (Auto) [place] % (Auto) Eos % (Auto) Baso % (Auto) Lymph # (Auto) [place] # (Auto) Eos # (Auto) Baso # (Auto) Abs Immat Gran (auto) Absolute Neuts (auto) Absolute Nucleated RBC (0.0-0.012) X10*3/uL Nucleated RBC % (auto) (0.0-0.2) /100WBC Neutrophils % (Manual) (45-73) % Band Neutrophils % (3-5) % Lymphocytes % (Manual) (20-40) % Monocytes % (Manual) (2-11) % Abs Neuts (Manual) (2.0-8.3) X10*3/uL Lymphocytes # (Manual) (1.2-4.9) X10*3/uL Monocytes # (Manual) (0.1-1.2) X10*3/uL Toxic Vacuolation Dohle Bodies Platelet Estimate (NORMAL) Large Platelets Plt Morphology Comment RBC Morphology Polychromasia /OIF [place] Cells /OIF PT (10.0-13.1) SEC INR (0.9-1.1) VBG pH (7.32-7.43) VBG pCO2 mmHg VBG pO2 mmHg VBG HCO3 (22-26) mmol/L VBG O2 Saturation % VBG Base Excess mmol/L Sodium 135 (135-145) mmol/L Potassium 4.2 (3.3-5.1) mmol/L Chloride 104 (96-108) mmol/L Carbon Dioxide 14 L (22-29) mmol/L Anion Gap 21 H (12-20) BUN 47 H (9-16) mg/dL Creatinine 1.59 H (0.5-1.4) mg/dL Estim Creat Clear Calc 42.9 Estimated GFR 43 Random Glucose 167 H (60-115) mg/dL Lactic Acid Cancelled (0.5-2.0) mmol/L Lactic Acid F/U @ 2Hr (0.5-2.0) mmol/L Calcium 7.3 L D (8.4-10.2) mg/dL Magnesium (1.6-2.6) mg/dL Total Bilirubin (0.0-1.0) mg/dL Direct Bilirubin (0.0-0.5) mg/dL AST (5-37) U/L ALT (0-40) U/L Alkaline Phosphatase (39-117) U/L Total Creatine Kinase (38-174) U/L Troponin I High Sens 26.6 (<3.5-35.0) ng/L B-Natriuretic Peptide (<100) pg/mL Total Protein (6.5-8.0) g/dL Albumin (3.5-5.0) g/dL Prealbumin (20-40) mg/dL Lipase (8-78) U/L Urine Color Urine Appearance Urine pH (5.0-9.0) Ur Specific [place] (1.005-1.025) Urine Protein (Neg-Trace) mg/dL Urine Glucose (UA) (Negative) mg/dL Urine Ketones (Negative) mg/dL Urine Blood (Negative) Urine Nitrite (Negative) Ur Leukocyte Esterase (Negative) Urine RBC (0-2) /HPF Urine WBC (0-5) /HPF Ur Squamous Epith Cells (0-2) /HPF Urine Bacteria (None Seen) Hyaline Casts (0-2) /LPF COVID-19 (HELENA) (Negative) COVID-19 Clin Com Influenza Type A (JAMES) (Negative) Influenza Type B (JAMES) (Negative) Influenza A & B Note 04/28/22 04/28/22 04/28/22 Range/Units 17:07 17:08 18:08 WBC 21.9 H (4.8-10.8) X10*3/uL RBC 3.32 L D (4.60-5.80) X10*6/uL Hgb 10.3 L D (14.0-18.0) g/dl Hct 30.6 L D (42.0-52.0) % MCV 92.2 (80.0-98.0) fL MCH 31.0 (27.0-33.0) pg MCHC 33.7 (31.0-36.0) g/dl RDW 13.3 (11.0-16.0) % Plt Count 163 D (160-400) X10*3/uL MPV 10.7 (9.4-12.4) fL Immature Gran % (Auto) Cancelled Neut % (Auto) Cancelled Lymph % (Auto) Cancelled [place] % (Auto) Cancelled Eos % (Auto) Cancelled Baso % (Auto) Cancelled Lymph # (Auto) Cancelled [place] # (Auto) Cancelled Eos # (Auto) Cancelled Baso # (Auto) Cancelled Abs Immat Gran (auto) Cancelled Absolute Neuts (auto) Cancelled Absolute Nucleated RBC 0.000 (0.0-0.012) X10*3/uL Nucleated RBC % (auto) 0.0 (0.0-0.2) /100WBC Neutrophils % (Manual) 87 H (45-73) % Band Neutrophils % 8 H (3-5) % Lymphocytes % (Manual) 2 L (20-40) % Monocytes % (Manual) 3 (2-11) % Abs Neuts (Manual) 20.8 H (2.0-8.3) X10*3/uL Lymphocytes # (Manual) 0.4 L (1.2-4.9) X10*3/uL Monocytes # (Manual) 0.7 (0.1-1.2) X10*3/uL Toxic Vacuolation Dohle Bodies PRESENT Platelet Estimate NORMAL (NORMAL) Large Platelets Plt Morphology Comment NORMAL RBC Morphology NOTED Polychromasia 1+ (0-2) /OIF [place] Cells 1+ (0-2) /OIF PT (10.0-13.1) SEC INR (0.9-1.1) VBG pH (7.32-7.43) VBG pCO2 mmHg VBG pO2 mmHg VBG HCO3 (22-26) mmol/L VBG O2 Saturation % VBG Base Excess mmol/L Sodium (135-145) mmol/L Potassium (3.3-5.1) mmol/L Chloride (96-108) mmol/L Carbon Dioxide (22-29) mmol/L Anion Gap (12-20) BUN (9-16) mg/dL Creatinine (0.5-1.4) mg/dL Estim Creat Clear Calc Estimated GFR Random Glucose (60-115) mg/dL Lactic Acid (0.5-2.0) mmol/L Lactic Acid F/U @ 2Hr 7.6 H* (0.5-2.0) mmol/L Calcium (8.4-10.2) mg/dL Magnesium (1.6-2.6) mg/dL Total Bilirubin (0.0-1.0) mg/dL Direct Bilirubin (0.0-0.5) mg/dL AST (5-37) U/L ALT (0-40) U/L Alkaline Phosphatase (39-117) U/L Total Creatine Kinase (38-174) U/L Troponin I High Sens (<3.5-35.0) ng/L B-Natriuretic Peptide (<100) pg/mL Total Protein (6.5-8.0) g/dL Albumin (3.5-5.0) g/dL Prealbumin 5.0 L (20-40) mg/dL Lipase (8-78) U/L Urine Color Urine Appearance Urine pH (5.0-9.0) Ur Specific [place] (1.005-1.025) Urine Protein (Neg-Trace) mg/dL Urine Glucose (UA) (Negative) mg/dL Urine Ketones (Negative) mg/dL Urine Blood (Negative) Urine Nitrite (Negative) Ur Leukocyte Esterase (Negative) Urine RBC (0-2) /HPF Urine WBC (0-5) /HPF Ur Squamous Epith Cells (0-2) /HPF Urine Bacteria (None Seen) Hyaline Casts (0-2) /LPF COVID-19 (HELENA) (Negative) COVID-19 Clin Com Influenza Type A (JAMES) (Negative) Influenza Type B (JAMES) (Negative) Influenza A & B Note 04/28/22 04/28/22 Range/Units 18:08 18:12 WBC (4.8-10.8) X10*3/uL RBC (4.60-5.80) X10*6/uL Hgb (14.0-18.0) g/dl Hct (42.0-52.0) % MCV (80.0-98.0) fL MCH (27.0-33.0) pg MCHC (31.0-36.0) g/dl RDW (11.0-16.0) % Plt Count (160-400) X10*3/uL MPV (9.4-12.4) fL Immature Gran % (Auto) Neut % (Auto) Lymph % (Auto) [place] % (Auto) Eos % (Auto) Baso % (Auto) Lymph # (Auto) [place] # (Auto) Eos # (Auto) Baso # (Auto) Abs Immat Gran (auto) Absolute Neuts (auto) Absolute Nucleated RBC (0.0-0.012) X10*3/uL Nucleated RBC % (auto) (0.0-0.2) /100WBC Neutrophils % (Manual) (45-73) % Band Neutrophils % (3-5) % Lymphocytes % (Manual) (20-40) % Monocytes % (Manual) (2-11) % Abs Neuts (Manual) (2.0-8.3) X10*3/uL Lymphocytes # (Manual) (1.2-4.9) X10*3/uL Monocytes # (Manual) (0.1-1.2) X10*3/uL Toxic Vacuolation Dohle Bodies Platelet Estimate (NORMAL) Large Platelets Plt Morphology Comment RBC Morphology Polychromasia /OIF [place] Cells /OIF PT (10.0-13.1) SEC INR (0.9-1.1) VBG pH 7.30 L (7.32-7.43) VBG pCO2 39 mmHg VBG pO2 29 mmHg VBG HCO3 19 L (22-26) mmol/L VBG O2 Saturation 34.0 % VBG Base Excess -5.8 mmol/L Sodium (135-145) mmol/L Potassium (3.3-5.1) mmol/L Chloride (96-108) mmol/L Carbon Dioxide (22-29) mmol/L Anion Gap (12-20) BUN (9-16) mg/dL Creatinine (0.5-1.4) mg/dL Estim Creat Clear Calc Estimated GFR Random Glucose (60-115) mg/dL Lactic Acid 1.3 (0.5-2.0) mmol/L Lactic Acid F/U @ 2Hr (0.5-2.0) mmol/L Calcium (8.4-10.2) mg/dL Magnesium (1.6-2.6) mg/dL Total Bilirubin (0.0-1.0) mg/dL Direct Bilirubin (0.0-0.5) mg/dL AST (5-37) U/L ALT (0-40) U/L Alkaline Phosphatase (39-117) U/L Total Creatine Kinase (38-174) U/L Troponin I High Sens (<3.5-35.0) ng/L B-Natriuretic Peptide (<100) pg/mL Total Protein (6.5-8.0) g/dL Albumin (3.5-5.0) g/dL Prealbumin (20-40) mg/dL Lipase (8-78) U/L Urine Color Urine Appearance Urine pH (5.0-9.0) Ur Specific [place] (1.005-1.025) Urine Protein (Neg-Trace) mg/dL Urine Glucose (UA) (Negative) mg/dL Urine Ketones (Negative) mg/dL Urine Blood (Negative) Urine Nitrite (Negative) Ur Leukocyte Esterase (Negative) Urine RBC (0-2) /HPF Urine WBC (0-5) /HPF Ur Squamous Epith Cells (0-2) /HPF Urine Bacteria (None Seen) Hyaline Casts (0-2) /LPF COVID-19 (HELENA) (Negative) COVID-19 Clin Com Influenza Type A (JAMES) (Negative) Influenza Type B (JAMES) (Negative) Influenza A & B Note Independent Interpretation I performed an independent interpretation of an: EKG Interpretation: My interpretation EKG is normal sinus rhythm at a rate of 100. QTC 440. No STEMI. Nonischemic Radiology Impression Discussion of test interpretation with radiology: I have reviewed the radiologist's reading. Independent Historian Clinical information obtained from an independent historian. History obtained from or confirmed by: EMS External Record Review External record reviewed: Office record Prescription Management I considered prescription management with: Pain Medication Chronic Conditions Patient?s care impacted by: Diabetes Critical Care Time Critical Care Time Critical Care Time: Yes Total Critical Care Time: 60 Attestation: I have personally provided critical care time exclusive of time spent on separately billable procedures. Time includes review of lab data, radiology results, discussion with consultants, and monitoring for potential decompensation. Intervention performed as documented. Discharge Plan Discharge Clinical Impression: Bacteremia, Acute cholecystitis Patient Disposition: Admitted As Inpatient
[2022-04-28 14:16] LABS: Hemoglobin 14.2 g/dl (14.0-18.0); PLT CLUMP 1
[2022-04-28 14:18] LABS: Hematocrit 42.5 % (42.0-52.0); Mean Corpuscular HGB Conc 33.4 g/dl (31.0-36.0); Mean Corpuscular Hemoglobin 31.1 pg (27.0-33.0); Mean Corpuscular Volume 93.2 fL (80.0-98.0); Mean Platelet Volume 11.1 fL (9.4-12.4); Red Blood Count 4.56 X10*6/uL (4.60-5.80); Red Cell Distribution Width 13.3 % (11.0-16.0)
[2022-04-28 14:20] LABS: WBC ABN SCTR FOR CBC 1
[2022-04-28 14:21] LABS: Platelet Count 220 X10*3/uL (160-400)
[2022-04-28] MEDS: 0.9 % Sodium Chloride 1,000 ML 999 ML IV (14:22)
[2022-04-28] MEDS: Lactated Ringers 1,000 ML 999 ML IV (14:22)
[2022-04-28 14:23] LABS: White Blood Count 34.7 X10*3/uL (4.8-10.8)
[2022-04-28 14:32] LABS: COVID-19 Test Negative (Negative); IDNOW Serial# 6674DD1D
[2022-04-28 14:35] LABS: IDNOW Serial# 55D5AD1C; Influenza A Negative (Negative); Influenza B2 Negative (Negative)
[2022-04-28 14:35] LABS: Band Neutrophils Percent 4 % (3-5); Monocytes Absolute Manual 2.1 X10*3/uL (0.1-1.2); Monocytes Percent Manual 6 % (2-11); Neutrophils Absolute Manual 32.6 X10*3/uL (2.0-8.3); Neutrophils Percent Manual 90 % (45-73); Platelet Estimate NORMAL (NORMAL)
[2022-04-28 14:36] LABS: Burr Cells 1+ (0-2) /OIF; Large Platelet PRESENT; Polychromasia 1+ (0-2) /OIF; RBC Morphology NOTED
[2022-04-28 14:37] LABS: Toxic Vacuolation PRESENT
[2022-04-28 14:40] LABS: B Type Natriuretic Peptide 349 pg/mL (<100)
[2022-04-28] MEDS: Piperacillin Sodium/Tazobactam 4.5 GM in 0.9 % Sodium Chloride 100 ML IV (14:44)
[2022-04-28 14:56] LABS: Lactic Acid 3.3 mmol/L (0.5-2.0)
[2022-04-28 15:03] LABS: Alanine Aminotransferase 36 U/L (0-40); Albumin Level 3.1 g/dL (3.5-5.0); Alkaline Phosphatase 263 U/L (39-117); Anion Gap 24 (12-20); Aspartate Amino Transferase 35 U/L (5-37); Bilirubin Direct 1.1 mg/dL (0.0-0.5); Bilirubin Total 1.9 mg/dL (0.0-1.0); Blood Urea Nitrogen 58 mg/dL (9-16); Calcium 8.5 mg/dL (8.4-10.2); Carbon Dioxide 15 mmol/L (22-29); Chloride 100 mmol/L (96-108); Creatinine Clr Calc Pharmacy 26.6; Estimated Glomerular Filt Rate 25; Glucose Random 248 mg/dL (60-115); Lipase 19 U/L (8-78); Magnesium 1.9 mg/dL (1.6-2.6); Sodium 135 mmol/L (135-145)
[2022-04-28 15:30] LABS: Appearance Urine Cloudy; Color Urine Dark Yellow; Glucose Urine UA Negative (Negative); Leukocyte Esterase Urine Trace (Negative); Nitrite Urine Negative (Negative); UMIC TRIGGER UACC YES; Urine Blood Moderate (2+) (Negative); Urine Ketones Trace mg/dL (Negative); Urine Protein 100 (2+) mg/dL (Neg-Trace)
[2022-04-28 15:36] LABS: INTERNATIONAL NORM RATIO 1.2 (0.9-1.1); Prothrombin Time 13.9 SEC (10.0-13.1)
[2022-04-28 15:39] LABS: Bacteria Urine None Seen (None Seen); WBC Urine 0-5 /HPF (0-5)
[2022-04-28 16:11] LABS: Reflex Lactate? Lactic Acid Added
[2022-04-28] MEDS: Lactated Ringers 250 ML 999 ML IV (16:26)
[2022-04-28 17:26] LABS: Hematocrit 30.6 % (42.0-52.0); Hemoglobin 10.3 g/dl (14.0-18.0); Mean Corpuscular HGB Conc 33.7 g/dl (31.0-36.0); Mean Corpuscular Volume 92.2 fL (80.0-98.0); Mean Platelet Volume 10.7 fL (9.4-12.4); Platelet Count 163 X10*3/uL (160-400); Red Blood Count 3.32 X10*6/uL (4.60-5.80); Red Cell Distribution Width 13.3 % (11.0-16.0)
[2022-04-28 17:36] LABS: ~Lactic Acid-LAB USE ONLY 7.6 mmol/L (0.5-2.0)
--- NOTE | 2022-04-28 17:37 | PM.CNGS ---
History of Present Illness Consult details Consult date: 04/28/22 Reason for consult: gallstones Narrative: 77y DM2, psoraitic arthritis, normal pressure hydrocephalus with [employer] shunt, protein malnutrition, JASE, HTN, poorly controlled type 2 diabetes with a hemoglobin A1c of 8, cardiomegally found down presenting with severe lactic acidosis, GAIL & acute calculus cholecystitis. The patient was admitted to the intensive care unit. Patient reports he is doing better this morning and is actually hungry. He requested that I call his daughter, Belen, at [phone] to discuss his presentation. Patient reports some mild right upper quadrant pain but does note that it is improved. He denies difficulty breathing, shortness of breath, focal neurologic symptoms or visual disturbances. The patient relates that he was told previously, number of years ago, that he had gallstones but it does not sound like he was having biliary colic or significant symptoms at that time. He requested that I discussed this matter with Belen. She had little information to add. Review of Systems Review of Systems: Yes all other systems are reviewed and are negative Constitutional: Constitutional: Reports as per [facility] Past Medical History Medical History ADHD Diabetes Diabetic retinopathy Encounter for screening for other viral diseases Hypertension Normal pressure hydrocephalus Obstructive sleep apnea Psoriasis Restless leg syndrome Screening-pulmonary TB Social History Social History Household Members: None Household Members Other:: lives alone Housing: House Do you presently have visiting nurse or other home services: No Alcohol intake: former Patient Tobacco Use Status: Never used Tobacco Smoked in Last 30 Days: No e-Cigarette/Vaping Use: Never Used Frequency of e-Cigarette/Vaping Use: never Use of substances other than those prescribed or required for medical reasons: No Have you been hit, kicked, punched, or otherwise hurt by someone within the past year? If so, by whom?: No Do you feel safe in your current relationship?: No Current Relationship Is there a partner from a previous relationship who is making you feel unsafe now?: No Are you made to feel afraid or neglected: No Spiritual Healthcare Practices: regularly goes to [facility] [employer] Healthcare Practices: N/A Cultural Healthcare Practices: Used topical marijuana cream for arthritic pain in hands, but not recently. Denies other marijuana use. Advance Directives: No Advance Directives Information Provided: No Do you have thoughts of harming others: None Do you have a plan to hurt others: No Plan Recently lost weight without trying: No Eating poorly because of decreased appetite: No Nutrition Risks: No Nutritional Risk Poor oral hygiene: No (dentures) service: No Current occupational status: retired Current occupation: [employer] Allergies Allergy/AdvReac Type Severity Reaction Status Date / Time famotidine [From Pepcid] Allergy Intermediate Hallucinati Verified 02/08/22 09:26 ons Active Medications: Current Medications Vancomycin HCl (Vancomycin/Ns) 2,000 mg in 520 mls @ 260 mls/hr IV ONCE ONE Stop: 04/28/22 18:59 Lactated Ringer's (Lr) 1,000 mls @ 125 mls/hr IVCONT .Q8H [facility] Pharmacy Consult (Consult Rx Perform Med Rec) 1 each MISCELLANE ONCE STA Stop: 04/28/22 13:20 Home Medications Medication Instructions Recorded Confirmed Last Taken Type amlodipine 10 mg tablet 10 mg PO DAILY 11/22/21 04/28/22 04/25/22 History atorvastatin 20 mg tablet 20 mg PO DAILY 11/22/21 04/28/22 04/25/22 History cholecalciferol (vitamin D3) 125 125 mcg PO DAILY 11/22/21 04/28/22 04/25/22 History mcg (5,000 unit) capsule folic acid 1 mg tablet 1 mg PO DAILY 11/22/21 04/28/22 04/25/22 History furosemide 40 mg tablet 40 mg PO DAILY 11/22/21 04/28/22 04/25/22 History metformin 500 mg tablet 1,000 mg PO BID 11/22/21 04/28/22 04/25/22 History metoprolol tartrate 50 mg tablet 50 mg PO BID 11/22/21 04/28/22 04/25/22 History allopurinol 100 mg tablet 100 mg PO DAILY 04/28/22 04/28/22 04/25/22 History glipizide 10 mg tablet, extended 1 tab PO BID 04/28/22 04/28/22 04/25/22 History release 24 hr insulin glargine 100 unit/mL (3 40 unit subcut BEDTIME 04/28/22 04/28/22 04/25/22 History mL) subcutaneous pen (Lantus Solostar U-100 Insulin) Physical Exam Vital Signs: Vital Signs: Last Vital Signs Temp 98 F 04/28/22 17:26 Pulse 88 04/28/22 17:26 Resp 16 04/28/22 17:26 BP 95/64 04/28/22 17:26 Pulse Ox 94 04/28/22 16:00 O2 Del Method 04/28/22 16:00 BMI result Body Mass Index 28.0 On exam, the patient is in surprisingly good spirits and is nontoxic Scalp deformities are noted Sclera are anicteric, conjunctiva pink and moist He is in no acute respiratory distress Abdomen is obese and soft with some right upper quadrant tenderness but no rebound, rigidity or guarding No abdominal wall hernias are noted Results Labs 04/28/22 14:00 04/28/22 14:01 Labs: Abnormal lab results 04/28/22 04/28/22 04/28/22 Range/Units 14:00 14:00 14:00 WBC 34.7 H* (4.8-10.8) X10*3/uL RBC 4.56 L (4.60-5.80) X10*6/uL Neutrophils % (Manual) 90 H (45-73) % Abs Neuts (Manual) 32.6 H (2.0-8.3) X10*3/uL Monocytes # (Manual) 2.1 H (0.1-1.2) X10*3/uL PT (10.0-13.1) SEC INR (0.9-1.1) Carbon Dioxide (22-29) mmol/L Anion Gap (12-20) BUN (9-16) mg/dL Creatinine (0.5-1.4) mg/dL Random Glucose (60-115) mg/dL Lactic Acid 3.3 H* (0.5-2.0) mmol/L Lactic Acid F/U @ 2Hr (0.5-2.0) mmol/L Total Bilirubin (0.0-1.0) mg/dL Direct Bilirubin (0.0-0.5) mg/dL Alkaline Phosphatase (39-117) U/L Total Creatine Kinase (38-174) U/L Troponin I High Sens 43.0 H (<3.5-35.0) ng/L B-Natriuretic Peptide (<100) pg/mL Total Protein (6.5-8.0) g/dL Albumin (3.5-5.0) g/dL Urine Protein (Neg-Trace) mg/dL Urine Blood (Negative) Ur Leukocyte Esterase (Negative) Urine RBC (0-2) /HPF 04/28/22 04/28/22 04/28/22 Range/Units 14:00 14:01 15:17 WBC (4.8-10.8) X10*3/uL RBC (4.60-5.80) X10*6/uL Neutrophils % (Manual) (45-73) % Abs Neuts (Manual) (2.0-8.3) X10*3/uL Monocytes # (Manual) (0.1-1.2) X10*3/uL PT 13.9 H (10.0-13.1) SEC INR 1.2 H (0.9-1.1) Carbon Dioxide 15 L (22-29) mmol/L Anion Gap 24 H (12-20) BUN 58 H (9-16) mg/dL Creatinine 2.56 H (0.5-1.4) mg/dL Random Glucose 248 H (60-115) mg/dL Lactic Acid (0.5-2.0) mmol/L Lactic Acid F/U @ 2Hr (0.5-2.0) mmol/L Total Bilirubin 1.9 H (0.0-1.0) mg/dL Direct Bilirubin 1.1 H (0.0-0.5) mg/dL Alkaline Phosphatase 263 H (39-117) U/L Total Creatine Kinase 446 H (38-174) U/L Troponin I High Sens (<3.5-35.0) ng/L B-Natriuretic Peptide 349 H (<100) pg/mL Total Protein 6.0 L (6.5-8.0) g/dL Albumin 3.1 L (3.5-5.0) g/dL Urine Protein (Neg-Trace) mg/dL Urine Blood (Negative) Ur Leukocyte Esterase (Negative) Urine RBC (0-2) /HPF 04/28/22 04/28/22 Range/Units 15:17 17:08 WBC (4.8-10.8) X10*3/uL RBC (4.60-5.80) X10*6/uL Neutrophils % (Manual) (45-73) % Abs Neuts (Manual) (2.0-8.3) X10*3/uL Monocytes # (Manual) (0.1-1.2) X10*3/uL PT (10.0-13.1) SEC INR (0.9-1.1) Carbon Dioxide (22-29) mmol/L Anion Gap (12-20) BUN (9-16) mg/dL Creatinine (0.5-1.4) mg/dL Random Glucose (60-115) mg/dL Lactic Acid (0.5-2.0) mmol/L Lactic Acid F/U @ 2Hr 7.6 H* (0.5-2.0) mmol/L Total Bilirubin (0.0-1.0) mg/dL Direct Bilirubin (0.0-0.5) mg/dL Alkaline Phosphatase (39-117) U/L Total Creatine Kinase (38-174) U/L Troponin I High Sens (<3.5-35.0) ng/L B-Natriuretic Peptide (<100) pg/mL Total Protein (6.5-8.0) g/dL Albumin (3.5-5.0) g/dL Urine Protein 100 (2+) H (Neg-Trace) mg/dL Urine Blood Moderate (2+) H (Negative) Ur Leukocyte Esterase Trace H (Negative) Urine RBC 3-5 H (0-2) /HPF Short CBC 04/28/22 Range/Units 14:00 WBC 34.7 H* (4.8-10.8) X10*3/uL Hgb 14.2 (14.0-18.0) g/dl Hct 42.5 (42.0-52.0) % Plt Count 220 (160-400) X10*3/uL BMP 04/28/22 14:01 Sodium 135 Potassium 4.0 Chloride 100 Carbon Dioxide 15 L BUN 58 H Creatinine 2.56 H Calcium 8.5 D Cardiac Enzymes 04/28/22 Range/Units 14:01 Total Creatine Kinase 446 H (38-174) U/L Liver Function 04/28/22 Range/Units 14:01 Total Bilirubin 1.9 H (0.0-1.0) mg/dL Direct Bilirubin 1.1 H (0.0-0.5) mg/dL AST 35 (5-37) U/L ALT 36 (0-40) U/L Alkaline Phosphatase 263 H (39-117) U/L Albumin 3.1 L (3.5-5.0) g/dL Urine 04/28/22 Range/Units 15:17 Urine Color Dark Yellow Urine Appearance Cloudy Urine pH 5.0 (5.0-9.0) Ur Specific [place] 1.020 (1.005-1.025) Urine Protein 100 (2+) H (Neg-Trace) mg/dL Urine Glucose (UA) Negative (Negative) mg/dL All other labs normal. 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 Metz; given the patient's clinical improvement I do not see a problem with starting clears. His cardiomegaly and comorbidities as well as nutritional depletion and poorly controlled type 2 diabetes make him a significant operative risk, so I would like Cardiology to evaluate him given his cardiomegaly. This plan was discussed with the patient's daughter by telephone, Belen, and her questions seemed to be satisfactorily answered. She notes that the patient gets all of his healthcare at [facility] so the option of discussion with his regular doctors down the road was offered but declined. If the patient has ongoing right upper quadrant pain, percutaneous cholecystostomy, improvement of his nutritional issues and diabetes prior to surgery would be in order. However, if the patient has cardiomegaly makes him a prohibitive risk, this would have to be discussed with the patient and his family. Would hold on advancing the diet past clears. Trend labs. Continue current antibiotic regime. Will follow, call with surgical questions. Time Spent With Patient Time: Total time managing care of this patient today ____ minutes. Procedures Date of Service Date of Service: 04/29/22
[2022-04-28 17:54] LABS: WBC ABN SCTR FOR CBC 1
[2022-04-28 18:11] LABS: Troponin-I High Sensitivity 26.6 ng/L (<3.5-35.0)
[2022-04-28 18:16] LABS: Venous Blood Gas Refer to POC result
[2022-04-28] MEDS: Lactated Ringers 1,000 ML 125 ML IVCONT (18:18)
[2022-04-28 18:19] LABS: VBG Base Excess -5.8 mmol/L; VBG HCO3 19 mmol/L (22-26); VBG pCO2 39 mmHg; VBG pO2 29 mmHg
[2022-04-28 18:19] LABS: Band Neutrophils Percent 8 % (3-5); Lymphocytes Percent Manual 2 % (20-40); Monocytes Percent Manual 3 % (2-11); Neutrophils Percent Manual 87 % (45-73)
[2022-04-28 18:21] LABS: Platelet Estimate NORMAL (NORMAL); Platelet Morphology Comment NORMAL; RBC Morphology NOTED
[2022-04-28 18:22] LABS: Burr Cells 1+ (0-2) /OIF; Dohle Bodies PRESENT; Polychromasia 1+ (0-2) /OIF
[2022-04-28 18:23] LABS: Lymphocytes Absolute Manual 0.4 X10*3/uL (1.2-4.9); Monocytes Absolute Manual 0.7 X10*3/uL (0.1-1.2); Neutrophils Absolute Manual 20.8 X10*3/uL (2.0-8.3); White Blood Count 21.9 X10*3/uL (4.8-10.8)
[2022-04-28 18:27] LABS: Lactic Acid 1.3 mmol/L (0.5-2.0)
[2022-04-28 18:27] LABS: Anion Gap 21 (12-20); Blood Urea Nitrogen 47 mg/dL (9-16); Calcium 7.3 mg/dL (8.4-10.2); Carbon Dioxide 14 mmol/L (22-29); Chloride 104 mmol/L (96-108); Creatinine Clr Calc Pharmacy 42.9; Estimated Glomerular Filt Rate 43; Glucose Random 167 mg/dL (60-115); Potassium 4.2 mmol/L (3.3-5.1); Sodium 135 mmol/L (135-145)
--- NOTE | 2022-04-28 19:14 | PC.NURSE ---
PT HAS UPPER AND LOWER DENTURES, NEED THEM TO EAT. PT IS AOX4.
[2022-04-28 19:15] LABS: Reflex Lactate? 2 Y
[2022-04-28 19:48] LABS: ~Lactic Acid-LAB USE ONLY 1.2 mmol/L (0.5-2.0)
[2022-04-28] MEDS: Sodium Bicarbonate 8.4% 150 MEQ in Dextrose 5 % 850 ML IV (20:51)
[2022-04-28] MEDS: Heparin Sodium,Porcine 5,000 UNIT/ML VIAL 5000 UNIT SUBCUT (21:00)
[2022-04-28] MEDS: Piperacillin Sodium/Tazobactam 3.375 GM in 0.9 % Sodium Chloride 50 ML IV (21:00)
[2022-04-28 21:28] LABS: Glucose, Whole Blood 133 mg/dL (60-115)
--- NOTE | 2022-04-28 22:20 | PM.CCHP ---
History of Present Illness Date of Service: 04/28/22 Attending physician on admission: Emanuel Metz Chief Complaint: Hypotension The patient is a 77-year-old male with a past medical history of Psoriatic arthritis on Enbrel,diabetes, chronic kidney disease stage 3, normal pressure hydrocephalus status post chest [employer] shunt placed 06/2017, obstructive sleep apnea, restless legs syndrome, erectile dysfunction, and ADHD.? He presented to the emergency room via EMS after sliding off the couch on night and was unable to get up off the floor due to chronic back pain in generalized fatigue. According to his daughter she called EMS for a well check because the patient missed an appointment today.? It is suspected that the patient was on the ground for about 36 hours.? The patient denied any? known injury, head trauma, loss of consciousness, chest pain / shortness of breath, abdominal pain, nausea /vomiting / diarrhea. On arrival to the ER his blood pressure was 97/55, heart rate 167, temp 97.6 degrees, respiratory rate 18? with SpO2 97% on room air.? EMS had reported new onset AFib but while obtaining the initial EKG the patient?s rhythm broke and he was back in a sinus rhythm at a rate of 100.? Laboratory data was significant? for WBC 34.7, BUN 58, creatinine 2.56, lactic acid 3.3, alk-phos 263, total CPK 446,? trop 43.0, BNP 349, Tbili? 1.9.? Urinalysis showed 2+ protein, moderate blood, trace leukocyte esterase, 3-5 RBCs per high-power field, 0-5 wbc?s per high-power field, no bacteria seen. ? VBG showed a pH of 7.30, bicarb 19. Imaging:CT chest, abdomen/pelvis IMPRESSION: 1.? Cholelithiasis with an inflamed, distended gallbladder, most consistent with acute cholecystitis. 2.? Dependent atelectasis in the lower lobes. Otherwise, no acute pulmonary findings. 3.? Cardiomegaly. 4.? Severe colonic diverticulosis without evidence of acute diverticulitis. 5.? Bilateral nonobstructing renal calculi. Abdominal ultrasound findings consistent with acute cholecystitis. ED course: Patient received a total of?3.25 L of fluids,?2 g vancomycin, and 4.5 g of Zosyn. BP mildly improved to 101/67 after fluid resuscitation.?Repeat lactic 1.3, mild improvement in leukocytosis to 21.9. General surgery Dr. Fontanez was notified of hospital admission and recommended transfer to surgical service when patient is more stable for possible percutaneous drain placement. Though blood pressure improved while in the emergency room, the patient? is immune compromised and will be admitted to ICU for close monitoring. Review of Systems Review of Systems: Yes all other systems are reviewed and are negative Constitutional: Constitutional: Reports as per HPI, Reports no additional constitutional complaints and Denies frequent falls Eyes: Eyes: Reports no additional eye complaints ENT: Denies dizziness Cardiovascular: Cardiovascular: Reports no additional cardiovascular complaints, Denies chest pain, Denies syncope, Denies leg edema and Denies Loss of Consciousness Respiratory: Respiratory: Reports no additional respiratory complaints Gastrointestinal: Gastrointestinal: Reports no additional gastrointestinal complaints, Denies diarrhea, Denies nausea and Denies vomiting Genitourinary: Genitourinary: Reports no additional male genitourinary complaints Musculoskeletal: Musculoskeletal: Reports abnormal gait ( wobbly ), Denies arthralgias (managed on Enbrel) and Reports muscle weakness (chronic) Integumentary/Breasts: Skin/Breast: Denies jaundice Neurologic: Reports abnormal gait ( wobbly ), Denies dizziness, Denies syncope, Denies frequent falls and Reports memory loss (short term memory loss (chronic)) Psychiatric: Psychiatric: Reports memory loss (short term memory loss (chronic)) Endocrine: Endocrine: Reports no additional endocrine complaints Hematologic/Lymphatic: Hematologic/Lymphatic: Reports no additional hematologic/lymphatic complaints Allergic/Immunologic: Allergic/Immunologic: Reports no additional allergic/immunologic complaints [facility] Past Medical History Medical History ADHD Diabetes Diabetic retinopathy Encounter for screening for other viral diseases Hypertension Normal pressure hydrocephalus Obstructive sleep apnea Psoriasis Restless leg syndrome Screening-pulmonary TB Functional capacity: uses cane/walker Social History Social History Household Members: None Household Members Other:: lives alone Housing: House Do you presently have visiting nurse or other home services: No Alcohol intake: former Patient Tobacco Use Status: Never used Tobacco Smoked in Last 30 Days: No e-Cigarette/Vaping Use: Never Used Frequency of e-Cigarette/Vaping Use: never Use of substances other than those prescribed or required for medical reasons: No Have you been hit, kicked, punched, or otherwise hurt by someone within the past year? If so, by whom?: No Do you feel safe in your current relationship?: No Current Relationship Is there a partner from a previous relationship who is making you feel unsafe now?: No Are you made to feel afraid or neglected: No Spiritual Healthcare Practices: regularly goes to [facility] Practices: N/A Cultural Healthcare Practices: Used topical marijuana cream for arthritic pain in hands, but not recently. Denies other marijuana use. Advance Directives: No Advance Directives Information Provided: No Do you have thoughts of harming others: None Do you have a plan to hurt others: No Plan Recently lost weight without trying: No Eating poorly because of decreased appetite: No Nutrition Risks: No Nutritional Risk Poor oral hygiene: No (dentures) service: No Current occupational status: retired Current occupation: [employer] Allergies Allergy/AdvReac Type Severity Reaction Status Date / Time famotidine [From Pepcid] Allergy Intermediate Hallucinati Verified 02/08/22 09:26 ons Active Medications: Current Medications Heparin Sodium (Porcine) (Heparin Sodium,Porcine 5,000 Unit/Ml Vial) 5,000 unit SUBCUT Q8H [facility] Last Admin: 04/28/22 21:00 Dose: 5,000 unit Sodium Bicarbonate 150 meq/ (Dextrose) 1,000 mls @ 150 mls/hr IV .[id number] [facility] Last Admin: 04/28/22 20:51 Dose: 150 mls/hr Piperacillin Sod/Tazobactam (Sod 3.375 gm/ Sodium Chloride) 50 mls @ 100 mls/hr IV Q6H [facility] Last Admin: 04/28/22 21:00 Dose: 100 mls/hr Insulin Human Lispro (Insulin Lispro 100 Unit/Ml 3 Ml Vial) 0 unit SUBCUT QIDACHS [facility]; Protocol Home Medications Medication Instructions Recorded Confirmed Last Taken Type amlodipine 10 mg tablet 10 mg PO DAILY 11/22/21 04/28/22 04/25/22 History atorvastatin 20 mg tablet 20 mg PO DAILY 11/22/21 04/28/22 04/25/22 History cholecalciferol (vitamin D3) 125 125 mcg PO DAILY 11/22/21 04/28/22 04/25/22 History mcg (5,000 unit) capsule folic acid 1 mg tablet 1 mg PO DAILY 11/22/21 04/28/22 04/25/22 History furosemide 40 mg tablet 40 mg PO DAILY 11/22/21 04/28/22 04/25/22 History metformin 500 mg tablet 1,000 mg PO BID 11/22/21 04/28/22 04/25/22 History metoprolol tartrate 50 mg tablet 50 mg PO BID 11/22/21 04/28/22 04/25/22 History allopurinol 100 mg tablet 100 mg PO DAILY 04/28/22 04/28/22 04/25/22 History glipizide 10 mg tablet, extended 1 tab PO BID 04/28/22 04/28/22 04/25/22 History release 24 hr insulin glargine 100 unit/mL (3 40 unit subcut BEDTIME 04/28/22 04/28/22 04/25/22 History mL) subcutaneous pen (Lantus Solostar U-100 Insulin) Physical Exam Vital Signs: Vital Signs: Last Vital Signs Temp 98 F 04/28/22 17:26 Pulse 85 04/28/22 22:00 Resp 14 04/28/22 22:00 BP 127/68 04/28/22 22:00 Pulse Ox 97 04/28/22 22:00 O2 Del Method 04/28/22 22:00 O2 Flow Rate 2 04/28/22 22:00 BMI result Body Mass Index 28.1 Const: General: cooperative, comfortable, no acute distress and alert Orientation/consciousness: patient oriented x3 Limitations: ambulation with cane HEENT: Head: Yes normocephalic and Yes atraumatic Ears: hearing grossly normal bilaterally General nose exam: Normal external nose present (Nares patent, septum midline, sinuses nontender bilaterally.) Mouth: Normal oral and palatal mucosa present (No thrush, tongue in midline, mucosa moist.) Teeth and gingiva: dentures Throat: Yes other (No erythema, no exudate.) Eyes: General: appearance normal, both eyes and all related structures Pupils: Equal, round and reactive pupils present EOM: EOMs intact bilaterally Neck: Neck: Yes supple (no thyromegaly, trachea midline.) Carotids: normal carotid upstroke Chest: Chest palpation & inspection: normal inspection of the chest Resp: Effort & Inspection: normal respiratory effort and able to speak in complete sentences Auscultation: clear to auscultation bilaterally (normal work of breathing, no accessory muscle use) Cardio: Jugular venous distension: no JVD Rate: regular rate Rhythm: regular rhythm Heart sounds: no gallops, no murmurs and no rubs Peripheral pulses: Peripheral pulses 2+ throughout GI: Palpation (GI): Soft to palpation (nondistended.) and nontender Auscultation: normal bowel sounds Skin: General skin exam: other (BLE hyperpigmentation) Neuro: General: patient oriented x3, moves all extremities and no focal motor deficits Cranial nerves: Yes CN's II-XII intact bilaterally, Yes Equal, round and reactive pupils present, Yes Bilaterally intact EOM present, Yes Midline tongue present, Yes Normal gag reflex present and Yes Ability to bilaterally elevate shoulders present Cognition (Neuro): normal cognition Pupils: Normal pupillary reactivity/response: bilateral Extrem: General: Yes full ROM, Yes capillary refill normal and Yes no clubbing, cyanosis or edema Psych: Speech and movement: Normal speech and movement present Affect: normal affect Attitude: cooperative Results Labs 04/28/22 17:07 04/28/22 17:07 Labs: Laboratory Results - last 24 hr 04/28/22 04/28/22 04/28/22 13:43 13:43 14:00 MCV 93.2 MCH 31.1 MCHC 33.4 RDW 13.3 Plt Count 220 MPV 11.1 Immature Gran % (Auto) Cancelled Neut % (Auto) Cancelled Lymph % (Auto) Cancelled [place] % (Auto) Cancelled Eos % (Auto) Cancelled Baso % (Auto) Cancelled Lymph # (Auto) Cancelled [place] # (Auto) Cancelled Eos # (Auto) Cancelled Baso # (Auto) Cancelled Abs Immat Gran (auto) Cancelled Absolute Neuts (auto) Cancelled Absolute Nucleated RBC 0.000 Nucleated RBC % (auto) 0.0 Neutrophils % (Manual) 90 H Band Neutrophils % 4 Lymphocytes % (Manual) Monocytes % (Manual) 6 Abs Neuts (Manual) 32.6 H Lymphocytes # (Manual) Monocytes # (Manual) 2.1 H Toxic Vacuolation PRESENT Dohle Bodies Platelet Estimate NORMAL Large Platelets PRESENT Plt Morphology Comment RBC Morphology NOTED Polychromasia 1+ (0-2) [place] Cells 1+ (0-2) PT INR VBG pH VBG pCO2 VBG pO2 VBG HCO3 VBG O2 Saturation VBG Base Excess Anion Gap Estim Creat Clear Calc Estimated GFR POC Glucose Random Glucose Lactic Acid Lactic Acid F/U @ 2Hr Lactic Acid F/U @ 4Hr Calcium Magnesium Total Bilirubin Direct Bilirubin AST ALT Alkaline Phosphatase Total Creatine Kinase Troponin I High Sens B-Natriuretic Peptide Total Protein Albumin Prealbumin Lipase Urine Color Urine Appearance Urine pH Ur Specific [place] Urine Protein Urine Glucose (UA) Urine Ketones Urine Blood Urine Nitrite Ur Leukocyte Esterase Urine RBC Urine WBC Ur Squamous Epith Cells Urine Bacteria Hyaline Casts COVID-19 (HELENA) Negative COVID-19 Clin Com See Note Influenza Type A (JAMES) Negative Influenza Type B (JAMES) Negative Influenza A & B Note See Note 04/28/22 04/28/22 04/28/22 14:00 14:00 14:00 MCV MCH MCHC RDW Plt Count MPV Immature Gran % (Auto) Neut % (Auto) Lymph % (Auto) [place] % (Auto) Eos % (Auto) Baso % (Auto) Lymph # (Auto) [place] # (Auto) Eos # (Auto) Baso # (Auto) Abs Immat Gran (auto) Absolute Neuts (auto) Absolute Nucleated RBC Nucleated RBC % (auto) Neutrophils % (Manual) Band Neutrophils % Lymphocytes % (Manual) Monocytes % (Manual) Abs Neuts (Manual) Lymphocytes # (Manual) Monocytes # (Manual) Toxic Vacuolation Dohle Bodies Platelet Estimate Large Platelets Plt Morphology Comment RBC Morphology Polychromasia [place] Cells PT INR VBG pH VBG pCO2 VBG pO2 VBG HCO3 VBG O2 Saturation VBG Base Excess Anion Gap Estim Creat Clear Calc Estimated GFR POC Glucose Random Glucose Lactic Acid 3.3 H* Lactic Acid F/U @ 2Hr Lactic Acid F/U @ 4Hr Calcium Magnesium Total Bilirubin Direct Bilirubin AST ALT Alkaline Phosphatase Total Creatine Kinase Troponin I High Sens 43.0 H B-Natriuretic Peptide 349 H Total Protein Albumin Prealbumin Lipase Urine Color Urine Appearance Urine pH Ur Specific [place] Urine Protein Urine Glucose (UA) Urine Ketones Urine Blood Urine Nitrite Ur Leukocyte Esterase Urine RBC Urine WBC Ur Squamous Epith Cells Urine Bacteria Hyaline Casts COVID-19 (HELENA) COVID-19 Clin Com Influenza Type A (JAMES) Influenza Type B (JAMES) Influenza A & B Note 04/28/22 04/28/22 04/28/22 14:01 15:17 15:17 MCV MCH MCHC RDW Plt Count MPV Immature Gran % (Auto) Neut % (Auto) Lymph % (Auto) [place] % (Auto) Eos % (Auto) Baso % (Auto) Lymph # (Auto) [place] # (Auto) Eos # (Auto) Baso # (Auto) Abs Immat Gran (auto) Absolute Neuts (auto) Absolute Nucleated RBC Nucleated RBC % (auto) Neutrophils % (Manual) Band Neutrophils % Lymphocytes % (Manual) Monocytes % (Manual) Abs Neuts (Manual) Lymphocytes # (Manual) Monocytes # (Manual) Toxic Vacuolation Dohle Bodies Platelet Estimate Large Platelets Plt Morphology Comment RBC Morphology Polychromasia [place] Cells PT 13.9 H INR 1.2 H VBG pH VBG pCO2 VBG pO2 VBG HCO3 VBG O2 Saturation VBG Base Excess Anion Gap 24 H Estim Creat Clear Calc 26.6 Estimated GFR 25 POC Glucose Random Glucose 248 H Lactic Acid Lactic Acid F/U @ 2Hr Lactic Acid F/U @ 4Hr Calcium 8.5 D Magnesium 1.9 Total Bilirubin 1.9 H Direct Bilirubin 1.1 H AST 35 ALT 36 Alkaline Phosphatase 263 H Total Creatine Kinase 446 H Troponin I High Sens B-Natriuretic Peptide Total Protein 6.0 L Albumin 3.1 L Prealbumin Lipase 19 Urine Color Dark Yellow Urine Appearance Cloudy Urine pH 5.0 Ur Specific [place] 1.020 Urine Protein 100 (2+) H Urine Glucose (UA) Negative Urine Ketones Trace Urine Blood Moderate (2+) H Urine Nitrite Negative Ur Leukocyte Esterase Trace H Urine RBC 3-5 H Urine WBC 0-5 Ur Squamous Epith Cells 6-10 Urine Bacteria None Seen Hyaline Casts 3-5 COVID-19 (HELENA) COVID-19 Clin Com Influenza Type A (JAMES) Influenza Type B (JAMES) Influenza A & B Note 04/28/22 04/28/22 04/28/22 17:07 17:07 17:07 MCV MCH MCHC RDW Plt Count MPV Immature Gran % (Auto) Neut % (Auto) Lymph % (Auto) [place] % (Auto) Eos % (Auto) Baso % (Auto) Lymph # (Auto) [place] # (Auto) Eos # (Auto) Baso # (Auto) Abs Immat Gran (auto) Absolute Neuts (auto) Absolute Nucleated RBC Nucleated RBC % (auto) Neutrophils % (Manual) Band Neutrophils % Lymphocytes % (Manual) Monocytes % (Manual) Abs Neuts (Manual) Lymphocytes # (Manual) Monocytes # (Manual) Toxic Vacuolation Dohle Bodies Platelet Estimate Large Platelets Plt Morphology Comment RBC Morphology Polychromasia [place] Cells PT INR VBG pH VBG pCO2 VBG pO2 VBG HCO3 VBG O2 Saturation VBG Base Excess Anion Gap 21 H Estim Creat Clear Calc 42.9 Estimated GFR 43 POC Glucose Random Glucose 167 H Lactic Acid Cancelled Lactic Acid F/U @ 2Hr Lactic Acid F/U @ 4Hr Calcium 7.3 L D Magnesium Total Bilirubin Direct Bilirubin AST ALT Alkaline Phosphatase Total Creatine Kinase Troponin I High Sens 26.6 B-Natriuretic Peptide Total Protein Albumin Prealbumin Lipase Urine Color Urine Appearance Urine pH Ur Specific [place] Urine Protein Urine Glucose (UA) Urine Ketones Urine Blood Urine Nitrite Ur Leukocyte Esterase Urine RBC Urine WBC Ur Squamous Epith Cells Urine Bacteria Hyaline Casts COVID-19 (HELENA) COVID-19 Clin Com Influenza Type A (JAMES) Influenza Type B (JAMES) Influenza A & B Note 04/28/22 04/28/22 04/28/22 17:07 17:08 18:08 MCV 92.2 MCH 31.0 MCHC 33.7 RDW 13.3 Plt Count 163 D MPV 10.7 Immature Gran % (Auto) Cancelled Neut % (Auto) Cancelled Lymph % (Auto) Cancelled [place] % (Auto) Cancelled Eos % (Auto) Cancelled Baso % (Auto) Cancelled Lymph # (Auto) Cancelled [place] # (Auto) Cancelled Eos # (Auto) Cancelled Baso # (Auto) Cancelled Abs Immat Gran (auto) Cancelled Absolute Neuts (auto) Cancelled Absolute Nucleated RBC 0.000 Nucleated RBC % (auto) 0.0 Neutrophils % (Manual) 87 H Band Neutrophils % 8 H Lymphocytes % (Manual) 2 L Monocytes % (Manual) 3 Abs Neuts (Manual) 20.8 H Lymphocytes # (Manual) 0.4 L Monocytes # (Manual) 0.7 Toxic Vacuolation Dohle Bodies PRESENT Platelet Estimate NORMAL Large Platelets Plt Morphology Comment NORMAL RBC Morphology NOTED Polychromasia 1+ (0-2) [place] Cells 1+ (0-2) PT INR VBG pH VBG pCO2 VBG pO2 VBG HCO3 VBG O2 Saturation VBG Base Excess Anion Gap Estim Creat Clear Calc Estimated GFR POC Glucose Random Glucose Lactic Acid Lactic Acid F/U @ 2Hr 7.6 H* Lactic Acid F/U @ 4Hr Calcium Magnesium Total Bilirubin Direct Bilirubin AST ALT Alkaline Phosphatase Total Creatine Kinase Troponin I High Sens B-Natriuretic Peptide Total Protein Albumin Prealbumin 5.0 L Lipase Urine Color Urine Appearance Urine pH Ur Specific [place] Urine Protein Urine Glucose (UA) Urine Ketones Urine Blood Urine Nitrite Ur Leukocyte Esterase Urine RBC Urine WBC Ur Squamous Epith Cells Urine Bacteria Hyaline Casts COVID-19 (HELENA) COVID-19 Clin Com Influenza Type A (JAMES) Influenza Type B (JAMES) Influenza A & B Note 04/28/22 04/28/22 04/28/22 18:08 18:12 19:34 MCV MCH MCHC RDW Plt Count MPV Immature Gran % (Auto) Neut % (Auto) Lymph % (Auto) [place] % (Auto) Eos % (Auto) Baso % (Auto) Lymph # (Auto) [place] # (Auto) Eos # (Auto) Baso # (Auto) Abs Immat Gran (auto) Absolute Neuts (auto) Absolute Nucleated RBC Nucleated RBC % (auto) Neutrophils % (Manual) Band Neutrophils % Lymphocytes % (Manual) Monocytes % (Manual) Abs Neuts (Manual) Lymphocytes # (Manual) Monocytes # (Manual) Toxic Vacuolation Dohle Bodies Platelet Estimate Large Platelets Plt Morphology Comment RBC Morphology Polychromasia [place] Cells PT INR VBG pH 7.30 L VBG pCO2 39 VBG pO2 29 VBG HCO3 19 L VBG O2 Saturation 34.0 VBG Base Excess -5.8 Anion Gap Estim Creat Clear Calc Estimated GFR POC Glucose Random Glucose Lactic Acid 1.3 Lactic Acid F/U @ 2Hr Lactic Acid F/U @ 4Hr 1.2 Calcium Magnesium Total Bilirubin Direct Bilirubin AST ALT Alkaline Phosphatase Total Creatine Kinase Troponin I High Sens B-Natriuretic Peptide Total Protein Albumin Prealbumin Lipase Urine Color Urine Appearance Urine pH Ur Specific [place] Urine Protein Urine Glucose (UA) Urine Ketones Urine Blood Urine Nitrite Ur Leukocyte Esterase Urine RBC Urine WBC Ur Squamous Epith Cells Urine Bacteria Hyaline Casts COVID-19 (HELENA) COVID-19 Clin Com Influenza Type A (JAMES) Influenza Type B (JAMES) Influenza A & B Note 04/28/22 21:24 MCV MCH MCHC RDW Plt Count MPV Immature Gran % (Auto) Neut % (Auto) Lymph % (Auto) [place] % (Auto) Eos % (Auto) Baso % (Auto) Lymph # (Auto) [place] # (Auto) Eos # (Auto) Baso # (Auto) Abs Immat Gran (auto) Absolute Neuts (auto) Absolute Nucleated RBC Nucleated RBC % (auto) Neutrophils % (Manual) Band Neutrophils % Lymphocytes % (Manual) Monocytes % (Manual) Abs Neuts (Manual) Lymphocytes # (Manual) Monocytes # (Manual) Toxic Vacuolation Dohle Bodies Platelet Estimate Large Platelets Plt Morphology Comment RBC Morphology Polychromasia [place] Cells PT INR VBG pH VBG pCO2 VBG pO2 VBG HCO3 VBG O2 Saturation VBG Base Excess Anion Gap Estim Creat Clear Calc Estimated GFR POC Glucose 133 H Random Glucose Lactic Acid Lactic Acid F/U @ 2Hr Lactic Acid F/U @ 4Hr Calcium Magnesium Total Bilirubin Direct Bilirubin AST ALT Alkaline Phosphatase Total Creatine Kinase Troponin I High Sens B-Natriuretic Peptide Total Protein Albumin Prealbumin Lipase Urine Color Urine Appearance Urine pH Ur Specific [place] Urine Protein Urine Glucose (UA) Urine Ketones Urine Blood Urine Nitrite Ur Leukocyte Esterase Urine RBC Urine WBC Ur Squamous Epith Cells Urine Bacteria Hyaline Casts COVID-19 (HELENA) COVID-19 Clin Com Influenza Type A (JAMES) Influenza Type B (JAMES) Influenza A & B Note Imaging Radiologist's Impressions: Impressions Chest X-Ray 04/28/22 13:50 IMPRESSION: No acute cardiopulmonary process. Abdomen/Pelvis CT 04/28/22 16:30 IMPRESSION: 1. Cholelithiasis with an inflamed, distended gallbladder, most consistent with acute cholecystitis. 2. Dependent atelectasis in the lower lobes. Otherwise, no acute pulmonary findings. 3. Cardiomegaly. 4. Severe colonic diverticulosis without evidence of acute diverticulitis. 5. Bilateral nonobstructing renal calculi. Chest CT 04/28/22 16:30 IMPRESSION: 1. Cholelithiasis with an inflamed, distended gallbladder, most consistent with acute cholecystitis. 2. Dependent atelectasis in the lower lobes. Otherwise, no acute pulmonary findings. 3. Cardiomegaly. 4. Severe colonic diverticulosis without evidence of acute diverticulitis. 5. Bilateral nonobstructing renal calculi. Abdomen Ultrasound 04/28/22 18:23 IMPRESSION: The findings on CT as well as is ultrasound of both consistent with acute cholecystitis. Assessment and Plan (1) Acute cholecystitis: Status: Acute (2) Metabolic acidosis: Status: Acute (3) GAIL (acute kidney injury): Status: Acute (4) Hypotension: Status: Acute (5) New onset a-fib: Status: Acute (6) Immunosuppression due to drug therapy: Status: Acute (7) Psoriatic arthritis: Status: Acute (8) Diabetes: Status: Acute (9) Normal pressure hydrocephalus: Status: Acute (10) Obstructive sleep apnea: Status: Acute (11) Back pain: Qualifiers: Back pain location: back pain in other location Chronicity: acute Qualified Code(s): M54.9 - Dorsalgia, unspecified Status: Acute Plan Assessment: 77-year-old male with a past medical history of Psoriatic arthritis, diabetes, chronic kidney disease, normal pressure hydrocephalus status post chest [employer] shunt, obstructive sleep apnea, restless legs syndrome, erectile dysfunction, and ADHD presented for hypotension and? tachycardia in the 160s with AFib on the monitor? after being stuck on the floor for 36 hours? found to have acute cholecystitis? and concern for dehydration/ metabolic abnormalities including rhabdomyolysis.? Plan Neuro:?Normal pressure hydrocephalus status post chest [employer] shunt placed 06/2017: ? No acute issues. Cardiac: ?Hypotension likely due to dehydration.? Improvement noted after fluid resuscitation. ? AFib in the 160s noted on monitor with conversion to sinus rhythm shortly after arrival. BNP elevated. Rhabdo- patient with elevated CK after being stuck on the floor for 36 hours.? Received? a total? 3.25L in the ED.? EKG no significant changes. will continue fluid hydration.? Continue trend CK.? Monitor for arrhythmias,? hypotension.? Start pressors as needed. Echo ordered. Pulmonary:?JASE: CPAP at HS.? No acute issues. Renal:?GAIL, metabolic acidosis most likely related to dehydration, rhabdomyolysis, nonoliguric. 3.25L in the? ED.? Sodium bicarb gtt ordered. Continue to check renal induces and urine output. Monitor blood pH. Endo:?Diabetes.? Hold home meds.? SS per protocol.? GI:?Cholecystitis.? Appreciate general surgery input.? NPO after midnight in anticipation of surgical intervention.? ID:?Leukocytosis.? On chronic immunosuppressant. Low suspicion for severe sepsis. Vital sign abnormalities likely from dehydration / arrhythmia rather than infection. Cultures pending. Empiric antibiotics given.?? Heme/Onc: No acute issues. Psych:? No acute issues. Diet:? NPO Prophylaxis:? subQ heparin,? no GI prophylaxis is sent Code? status: quahogger Spent With Patient Time: Total time managing care of this patient today ____ minutes.
[2022-04-28 23:43] LABS: Glucose, Whole Blood 141 mg/dL (60-115)
[2022-04-29] VITALS (29 sets, daily range): BP systolic 71–155; BP diastolic 49–79; PULSE 67–156; RESP 13–36; TEMP 36.6–38.7; O2SAT 88–97; BMI 29.4
--- NOTE | 2022-04-29 | ECG_ITS ---
Test Reason : tachycardia Blood Pressure : / mmHG Vent. Rate : 111 BPM Atrial Rate : 111 BPM P-R Int : 148 ms QRS Dur : 078 ms QT Int : 304 ms P-R-T Axes : 033 034 021 degrees QTc Int : 413 ms Sinus tachycardia Otherwise normal ECG No previous ECGs available Referred By: Kimani Warren Electronically Signed By:CHAZ KNAPP MD
--- NOTE | 2022-04-29 01:23 | PC.NURSE ---
Assumed care at 22:00, with patient admitted to ICU. Patient is alert and oriented, but admits to some short term memory loss. Occasionally disconjugate gaze with left eye looking medially, but able to cross back over midline through EOM. Patient follows commands and responds appropriately. Patient noted to be hiccoughing frequently, and reports he has been hiccoughing since EMS picked him up, SCIENTIFIC INFORMATICS ANALYST aware. Patient is on 2 LPM nasal cannula, no home O2, prior diagnosis of JASE, and patient reports his home CPAP is missing some parts, and he has not been using it, SCIENTIFIC INFORMATICS ANALYST aware, and auto CPAP ordered and RT notified and applied to patient, who is tolerating it. Patient is in normal sinus rhythm on telemetry, distant heart sounds. NPO except sips with meds pending surgical eval for acute cholecystitis. Large obese round abdomen with hyperactive BS in all four quadrants. Last BM on per patient. Denies nausea or vomiting, but also says he has not been eating well. Use dentures, at bedside. UOP 100 cc/hour via long catheter for fluid management. Skin is intact.
[2022-04-29] MEDS: Piperacillin Sodium/Tazobactam 3.375 GM in 0.9 % Sodium Chloride 50 ML IV ×4 (02:42→21:36)
[2022-04-29] MEDS: Heparin Sodium,Porcine 5,000 UNIT/ML VIAL 5000 UNIT SUBCUT ×3 (02:42→21:32)
[2022-04-29] MEDS: Sodium Bicarbonate 8.4% 150 MEQ in Dextrose 5 % 850 ML IV (03:37)
[2022-04-29 05:29] LABS: VBG Base Excess 2.1 mmol/L; VBG HCO3 25 mmol/L (22-26); VBG pCO2 32 mmHg; VBG pO2 55 mmHg
[2022-04-29 05:48] LABS: Glucose, Whole Blood 189 mg/dL (60-115)
[2022-04-29 05:54] LABS: Basophils Percent Auto 0.2 % (0-2); Eosinophils Percent Auto 0.1 % (0-4); Hematocrit 35.8 % (42.0-52.0); Hemoglobin 12.4 g/dl (14.0-18.0); Imm Gran Abs Auto 0.11 X10*3/uL (0.00-0.03); Imm Gran Pct Auto 0.6 % (0.0-0.4); Lymphocytes Absolute Auto 0.5 X10*3/uL (1.2-4.9); Lymphocytes Percent Auto 2.8 % (20-40); MANUAL DIFF FLAG SCAN; Mean Corpuscular HGB Conc 34.6 g/dl (31.0-36.0); Mean Corpuscular Hemoglobin 30.8 pg (27.0-33.0); Mean Corpuscular Volume 88.8 fL (80.0-98.0); Mean Platelet Volume 10.7 fL (9.4-12.4); Monocytes Absolute Auto 1.9 X10*3/uL (0.1-1.2); Neutrophils Absolute Auto 16.4 x10*3/uL (2.0-8.3); Neutrophils Percent Auto 86.3 % (45-73); Platelet Count 170 X10*3/uL (160-400); Red Blood Count 4.03 X10*6/uL (4.60-5.80); Red Cell Distribution Width 12.9 % (11.0-16.0); SCAN SMEAR FLAG 1
[2022-04-29 06:11] LABS: Alanine Aminotransferase 31 U/L (0-40); Albumin Level 2.3 g/dL (3.5-5.0); Alkaline Phosphatase 189 U/L (39-117); Anion Gap 16 (12-20); Aspartate Amino Transferase 34 U/L (5-37); Bilirubin Total 1.2 mg/dL (0.0-1.0); Blood Urea Nitrogen 45 mg/dL (9-16); Calcium 7.7 mg/dL (8.4-10.2); Carbon Dioxide 21 mmol/L (22-29); Chloride 103 mmol/L (96-108); Creatinine Clr Calc Pharmacy 50.3; Estimated Glomerular Filt Rate 51; Glucose Random 183 mg/dL (60-115); Magnesium 1.7 mg/dL (1.6-2.6); Phosphorus 2.3 mg/dL (2.7-4.5); Sodium 137 mmol/L (135-145); Total Protein 4.7 g/dL (6.5-8.0)
[2022-04-29 06:16] LABS: SLIDE REVIEW VERIFIED
[2022-04-29 06:37] LABS: Venous Blood Gas Refer to POC result
[2022-04-29] MEDS: Albumin Human 25 % 100 ML IV ×3 (08:00→17:17)
[2022-04-29] MEDS: Potassium Chloride/H20 10 MEQ/100 ML PIGGYBACK 100 MEQ IV ×4 (08:01→11:41)
[2022-04-29] MEDS: Potassium Phosphate/NS 15 MMOL/250 ML PLAST..BAG 62.5 MMOL IV (08:12)
[2022-04-29 08:33] LABS: Glucose, Whole Blood 186 mg/dL (60-115)
[2022-04-29 08:42] LABS: Estimated Average Glucose 183 mg/dL
--- NOTE | 2022-04-29 11:31 | PM.CCPN ---
Subjective Subjective Date of Service: 04/29/22 Interval History: 77-year-old gentleman with prior history of hydrocephalus status post [employer] shunt, psoriatic arthritis on Enbrel, diabetes mellitus, CKD stage 3, [facility] admitted 04/28/2022 after mechanical fall and inability to get up, found by wellness check. On ER evaluation intravascular volume depletion, also acute cholecystitis. Evaluated by General surgery. Initial poor response to IV fluid , but did not require pressors. Monitored in the intensive care unit overnight. Blood cultures with Gram-negative rods. now covered with Zosyn. Critical Care Time (minutes): 0 Physical Exam Vital Signs: Vital Signs: Last Vital Signs Temp 99.6 F 04/29/22 08:00 Pulse 93 04/29/22 09:53 Resp 17 04/29/22 09:53 BP 116/61 04/29/22 09:53 Pulse Ox 92 04/29/22 09:53 O2 Del Method 04/29/22 09:53 O2 Flow Rate 3 04/29/22 09:53 BMI result Body Mass Index 29.4 Const: General: no acute distress, alert and awake Eyes: Sclerae: sclerae normal EOM: EOMs intact bilaterally Neck: Neck: Yes no lymphadenopathy, Yes trachea midline and Yes supple Resp: Effort & Inspection: normal respiratory effort and no respiratory distress Auscultation: clear to auscultation bilaterally Cardio: Rate: regular rate Rhythm: regular rhythm Heart sounds: no gallops, no murmurs and no rubs GI: Palpation (GI): Soft to palpation and Other GI palpation findings present ( Nontender) Auscultation: normal bowel sounds Extrem: General: No clubbing, No cyanosis and Yes edema ( 1+ bilateral) Objective Data Labs 04/29/22 05:18 04/29/22 05:18 Labs: Laboratory Results - last 24 hr 04/28/22 04/28/22 04/28/22 13:43 13:43 14:00 WBC 34.7 H* RBC 4.56 L Hgb 14.2 Hct 42.5 MCV 93.2 MCH 31.1 MCHC 33.4 RDW 13.3 Plt Count 220 MPV 11.1 Immature Gran % (Auto) Cancelled Neut % (Auto) Cancelled Lymph % (Auto) Cancelled [place] % (Auto) Cancelled Eos % (Auto) Cancelled Baso % (Auto) Cancelled Lymph # (Auto) Cancelled [place] # (Auto) Cancelled Eos # (Auto) Cancelled Baso # (Auto) Cancelled Abs Immat Gran (auto) Cancelled Absolute Neuts (auto) Cancelled Absolute Nucleated RBC 0.000 Nucleated RBC % (auto) 0.0 Neutrophils % (Manual) 90 H Band Neutrophils % 4 Lymphocytes % (Manual) Monocytes % (Manual) 6 Abs Neuts (Manual) 32.6 H Lymphocytes # (Manual) Monocytes # (Manual) 2.1 H Toxic Vacuolation PRESENT Dohle Bodies Platelet Estimate NORMAL Large Platelets PRESENT Plt Morphology Comment RBC Morphology NOTED Polychromasia 1+ (0-2) Blayne Cells 1+ (0-2) Smear Tech's Comments PT INR VBG pH VBG pCO2 VBG pO2 VBG HCO3 VBG O2 Saturation VBG Base Excess Sodium Potassium Chloride Carbon Dioxide Anion Gap BUN Creatinine Estim Creat Clear Calc Estimated GFR POC Glucose Random Glucose Estimat Average Glucose Hemoglobin A1c % Lactic Acid Lactic Acid F/U @ 2Hr Lactic Acid F/U @ 4Hr Calcium Phosphorus Magnesium Total Bilirubin Direct Bilirubin AST ALT Alkaline Phosphatase Total Creatine Kinase Troponin I High Sens B-Natriuretic Peptide Total Protein Albumin Prealbumin Lipase Urine Color Urine Appearance Urine pH Ur Specific [place] Urine Protein Urine Glucose (UA) Urine Ketones Urine Blood Urine Nitrite Ur Leukocyte Esterase Urine RBC Urine WBC Ur Squamous Epith Cells Urine Bacteria Hyaline Casts COVID-19 (HELENA) Negative COVID-19 Clin Com See Note Influenza Type A (JAMES) Negative Influenza Type B (JAMES) Negative Influenza A & B Note See Note 04/28/22 04/28/22 04/28/22 14:00 14:00 14:00 WBC RBC Hgb Hct MCV MCH MCHC RDW Plt Count MPV Immature Gran % (Auto) Neut % (Auto) Lymph % (Auto) [place] % (Auto) Eos % (Auto) Baso % (Auto) Lymph # (Auto) [place] # (Auto) Eos # (Auto) Baso # (Auto) Abs Immat Gran (auto) Absolute Neuts (auto) Absolute Nucleated RBC Nucleated RBC % (auto) Neutrophils % (Manual) Band Neutrophils % Lymphocytes % (Manual) Monocytes % (Manual) Abs Neuts (Manual) Lymphocytes # (Manual) Monocytes # (Manual) Toxic Vacuolation Dohle Bodies Platelet Estimate Large Platelets Plt Morphology Comment RBC Morphology Polychromasia [place] Cells Smear Tech's Comments PT INR VBG pH VBG pCO2 VBG pO2 VBG HCO3 VBG O2 Saturation VBG Base Excess Sodium Potassium Chloride Carbon Dioxide Anion Gap BUN Creatinine Estim Creat Clear Calc Estimated GFR POC Glucose Random Glucose Estimat Average Glucose Hemoglobin A1c % Lactic Acid 3.3 H* Lactic Acid F/U @ 2Hr Lactic Acid F/U @ 4Hr Calcium Phosphorus Magnesium Total Bilirubin Direct Bilirubin AST ALT Alkaline Phosphatase Total Creatine Kinase Troponin I High Sens 43.0 H B-Natriuretic Peptide 349 H Total Protein Albumin Prealbumin Lipase Urine Color Urine Appearance Urine pH Ur Specific [place] Urine Protein Urine Glucose (UA) Urine Ketones Urine Blood Urine Nitrite Ur Leukocyte Esterase Urine RBC Urine WBC Ur Squamous Epith Cells Urine Bacteria Hyaline Casts COVID-19 (HELENA) COVID-19 Clin Com Influenza Type A (JAMES) Influenza Type B (JAMES) Influenza A & B Note 04/28/22 04/28/22 04/28/22 14:01 15:17 15:17 WBC RBC Hgb Hct MCV MCH MCHC RDW Plt Count MPV Immature Gran % (Auto) Neut % (Auto) Lymph % (Auto) [place] % (Auto) Eos % (Auto) Baso % (Auto) Lymph # (Auto) [place] # (Auto) Eos # (Auto) Baso # (Auto) Abs Immat Gran (auto) Absolute Neuts (auto) Absolute Nucleated RBC Nucleated RBC % (auto) Neutrophils % (Manual) Band Neutrophils % Lymphocytes % (Manual) Monocytes % (Manual) Abs Neuts (Manual) Lymphocytes # (Manual) Monocytes # (Manual) Toxic Vacuolation Dohle Bodies Platelet Estimate Large Platelets Plt Morphology Comment RBC Morphology Polychromasia Blayne Cells Smear Tech's Comments PT 13.9 H INR 1.2 H VBG pH VBG pCO2 VBG pO2 VBG HCO3 VBG O2 Saturation VBG Base Excess Sodium 135 Potassium 4.0 Chloride 100 Carbon Dioxide 15 L Anion Gap 24 H BUN 58 H Creatinine 2.56 H Estim Creat Clear Calc 26.6 Estimated GFR 25 POC Glucose Random Glucose 248 H Estimat Average Glucose Hemoglobin A1c % Lactic Acid Lactic Acid F/U @ 2Hr Lactic Acid F/U @ 4Hr Calcium 8.5 D Phosphorus Magnesium 1.9 Total Bilirubin 1.9 H Direct Bilirubin 1.1 H AST 35 ALT 36 Alkaline Phosphatase 263 H Total Creatine Kinase 446 H Troponin I High Sens B-Natriuretic Peptide Total Protein 6.0 L Albumin 3.1 L Prealbumin Lipase 19 Urine Color Dark Yellow Urine Appearance Cloudy Urine pH 5.0 Ur Specific [place] 1.020 Urine Protein 100 (2+) H Urine Glucose (UA) Negative Urine Ketones Trace Urine Blood Moderate (2+) H Urine Nitrite Negative Ur Leukocyte Esterase Trace H Urine RBC 3-5 H Urine WBC 0-5 Ur Squamous Epith Cells 6-10 Urine Bacteria None Seen Hyaline Casts 3-5 COVID-19 (HELENA) COVID-19 Clin Com Influenza Type A (JAMES) Influenza Type B (JAMES) Influenza A & B Note 04/28/22 04/28/22 04/28/22 17:07 17:07 17:07 WBC RBC Hgb Hct MCV MCH MCHC RDW Plt Count MPV Immature Gran % (Auto) Neut % (Auto) Lymph % (Auto) [place] % (Auto) Eos % (Auto) Baso % (Auto) Lymph # (Auto) [place] # (Auto) Eos # (Auto) Baso # (Auto) Abs Immat Gran (auto) Absolute Neuts (auto) Absolute Nucleated RBC Nucleated RBC % (auto) Neutrophils % (Manual) Band Neutrophils % Lymphocytes % (Manual) Monocytes % (Manual) Abs Neuts (Manual) Lymphocytes # (Manual) Monocytes # (Manual) Toxic Vacuolation Dohle Bodies Platelet Estimate Large Platelets Plt Morphology Comment RBC Morphology Polychromasia Blayne Cells Smear Tech's Comments PT INR VBG pH VBG pCO2 VBG pO2 VBG HCO3 VBG O2 Saturation VBG Base Excess Sodium 135 Potassium 4.2 Chloride 104 Carbon Dioxide 14 L Anion Gap 21 H BUN 47 H Creatinine 1.59 H Estim Creat Clear Calc 42.9 Estimated GFR 43 POC Glucose Random Glucose 167 H Estimat Average Glucose Hemoglobin A1c % Lactic Acid Cancelled Lactic Acid F/U @ 2Hr Lactic Acid F/U @ 4Hr Calcium 7.3 L D Phosphorus Magnesium Total Bilirubin Direct Bilirubin AST ALT Alkaline Phosphatase Total Creatine Kinase Troponin I High Sens 26.6 B-Natriuretic Peptide Total Protein Albumin Prealbumin Lipase Urine Color Urine Appearance Urine pH Ur Specific [place] Urine Protein Urine Glucose (UA) Urine Ketones Urine Blood Urine Nitrite Ur Leukocyte Esterase Urine RBC Urine WBC Ur Squamous Epith Cells Urine Bacteria Hyaline Casts COVID-19 (HELENA) COVID-19 Clin Com Influenza Type A (JAMES) Influenza Type B (JAMES) Influenza A & B Note 04/28/22 04/28/22 04/28/22 17:07 17:08 18:08 WBC 21.9 H RBC 3.32 L D Hgb 10.3 L D Hct 30.6 L D MCV 92.2 MCH 31.0 MCHC 33.7 RDW 13.3 Plt Count 163 D MPV 10.7 Immature Gran % (Auto) Cancelled Neut % (Auto) Cancelled Lymph % (Auto) Cancelled [place] % (Auto) Cancelled Eos % (Auto) Cancelled Baso % (Auto) Cancelled Lymph # (Auto) Cancelled [place] # (Auto) Cancelled Eos # (Auto) Cancelled Baso # (Auto) Cancelled Abs Immat Gran (auto) Cancelled Absolute Neuts (auto) Cancelled Absolute Nucleated RBC 0.000 Nucleated RBC % (auto) 0.0 Neutrophils % (Manual) 87 H Band Neutrophils % 8 H Lymphocytes % (Manual) 2 L Monocytes % (Manual) 3 Abs Neuts (Manual) 20.8 H Lymphocytes # (Manual) 0.4 L Monocytes # (Manual) 0.7 Toxic Vacuolation Dohle Bodies PRESENT Platelet Estimate NORMAL Large Platelets Plt Morphology Comment NORMAL RBC Morphology NOTED Polychromasia 1+ (0-2) [place] Cells 1+ (0-2) Smear Tech's Comments PT INR VBG pH VBG pCO2 VBG pO2 VBG HCO3 VBG O2 Saturation VBG Base Excess Sodium Potassium Chloride Carbon Dioxide Anion Gap BUN Creatinine Estim Creat Clear Calc Estimated GFR POC Glucose Random Glucose Estimat Average Glucose Hemoglobin A1c % Lactic Acid Lactic Acid F/U @ 2Hr 7.6 H* Lactic Acid F/U @ 4Hr Calcium Phosphorus Magnesium Total Bilirubin Direct Bilirubin AST ALT Alkaline Phosphatase Total Creatine Kinase Troponin I High Sens B-Natriuretic Peptide Total Protein Albumin Prealbumin 5.0 L Lipase Urine Color Urine Appearance Urine pH Ur Specific [place] Urine Protein Urine Glucose (UA) Urine Ketones Urine Blood Urine Nitrite Ur Leukocyte Esterase Urine RBC Urine WBC Ur Squamous Epith Cells Urine Bacteria Hyaline Casts COVID-19 (HELENA) COVID-19 Clin Com Influenza Type A (JAMES) Influenza Type B (JAMES) Influenza A & B Note 04/28/22 04/28/22 04/28/22 18:08 18:08 18:12 WBC RBC Hgb Hct MCV MCH MCHC RDW Plt Count MPV Immature Gran % (Auto) Neut % (Auto) Lymph % (Auto) [place] % (Auto) Eos % (Auto) Baso % (Auto) Lymph # (Auto) [place] # (Auto) Eos # (Auto) Baso # (Auto) Abs Immat Gran (auto) Absolute Neuts (auto) Absolute Nucleated RBC Nucleated RBC % (auto) Neutrophils % (Manual) Band Neutrophils % Lymphocytes % (Manual) Monocytes % (Manual) Abs Neuts (Manual) Lymphocytes # (Manual) Monocytes # (Manual) Toxic Vacuolation Dohle Bodies Platelet Estimate Large Platelets Plt Morphology Comment RBC Morphology Polychromasia [place] Cells Smear Tech's Comments PT INR VBG pH 7.30 L VBG pCO2 39 VBG pO2 29 VBG HCO3 19 L VBG O2 Saturation 34.0 VBG Base Excess -5.8 Sodium Potassium Chloride Carbon Dioxide Anion Gap BUN Creatinine Estim Creat Clear Calc Estimated GFR POC Glucose Random Glucose Estimat Average Glucose 183 Hemoglobin A1c % 8.0 Lactic Acid 1.3 Lactic Acid F/U @ 2Hr Lactic Acid F/U @ 4Hr Calcium Phosphorus Magnesium Total Bilirubin Direct Bilirubin AST ALT Alkaline Phosphatase Total Creatine Kinase Troponin I High Sens B-Natriuretic Peptide Total Protein Albumin Prealbumin Lipase Urine Color Urine Appearance Urine pH Ur Specific [place] Urine Protein Urine Glucose (UA) Urine Ketones Urine Blood Urine Nitrite Ur Leukocyte Esterase Urine RBC Urine WBC Ur Squamous Epith Cells Urine Bacteria Hyaline Casts COVID-19 (HELENA) COVID-19 Clin Com Influenza Type A (JAMES) Influenza Type B (JAMES) Influenza A & B Note 04/28/22 04/28/22 04/28/22 19:34 21:24 23:36 WBC RBC Hgb Hct MCV MCH MCHC RDW Plt Count MPV Immature Gran % (Auto) Neut % (Auto) Lymph % (Auto) [place] % (Auto) Eos % (Auto) Baso % (Auto) Lymph # (Auto) [place] # (Auto) Eos # (Auto) Baso # (Auto) Abs Immat Gran (auto) Absolute Neuts (auto) Absolute Nucleated RBC Nucleated RBC % (auto) Neutrophils % (Manual) Band Neutrophils % Lymphocytes % (Manual) Monocytes % (Manual) Abs Neuts (Manual) Lymphocytes # (Manual) Monocytes # (Manual) Toxic Vacuolation Dohle Bodies Platelet Estimate Large Platelets Plt Morphology Comment RBC Morphology Polychromasia [place] Cells Smear Tech's Comments PT INR VBG pH VBG pCO2 VBG pO2 VBG HCO3 VBG O2 Saturation VBG Base Excess Sodium Potassium Chloride Carbon Dioxide Anion Gap BUN Creatinine Estim Creat Clear Calc Estimated GFR POC Glucose 133 H 141 H Random Glucose Estimat Average Glucose Hemoglobin A1c % Lactic Acid Lactic Acid F/U @ 2Hr Lactic Acid F/U @ 4Hr 1.2 Calcium Phosphorus Magnesium Total Bilirubin Direct Bilirubin AST ALT Alkaline Phosphatase Total Creatine Kinase Troponin I High Sens B-Natriuretic Peptide Total Protein Albumin Prealbumin Lipase Urine Color Urine Appearance Urine pH Ur Specific [place] Urine Protein Urine Glucose (UA) Urine Ketones Urine Blood Urine Nitrite Ur Leukocyte Esterase Urine RBC Urine WBC Ur Squamous Epith Cells Urine Bacteria Hyaline Casts COVID-19 (HELENA) COVID-19 Clin Com Influenza Type A (JAMES) Influenza Type B (JAMES) Influenza A & B Note 04/29/22 04/29/22 04/29/22 05:18 05:18 05:22 WBC 19.0 H RBC 4.03 L D Hgb 12.4 L D Hct 35.8 L MCV 88.8 MCH 30.8 MCHC 34.6 RDW 12.9 Plt Count 170 MPV 10.7 Immature Gran % (Auto) 0.6 H Neut % (Auto) 86.3 H Lymph % (Auto) 2.8 L [place] % (Auto) 10.0 Eos % (Auto) 0.1 Baso % (Auto) 0.2 Lymph # (Auto) 0.5 L [place] # (Auto) 1.9 H Eos # (Auto) 0.0 Baso # (Auto) 0.0 Abs Immat Gran (auto) 0.11 H Absolute Neuts (auto) 16.4 H Absolute Nucleated RBC 0.000 Nucleated RBC % (auto) 0.0 Neutrophils % (Manual) Band Neutrophils % Lymphocytes % (Manual) Monocytes % (Manual) Abs Neuts (Manual) Lymphocytes # (Manual) Monocytes # (Manual) Toxic Vacuolation Dohle Bodies Platelet Estimate Large Platelets Plt Morphology Comment RBC Morphology Polychromasia Blayne Cells Smear Tech's Comments VERIFIED PT INR VBG pH 7.50 H VBG pCO2 32 VBG pO2 55 VBG HCO3 25 VBG O2 Saturation 84.0 VBG Base Excess 2.1 Sodium 137 Potassium 3.0 L D Chloride 103 Carbon Dioxide 21 L Anion Gap 16 BUN 45 H Creatinine 1.36 Estim Creat Clear Calc 50.3 Estimated GFR 51 POC Glucose Random Glucose 183 H Estimat Average Glucose Hemoglobin A1c % Lactic Acid Lactic Acid F/U @ 2Hr Lactic Acid F/U @ 4Hr Calcium 7.7 L Phosphorus 2.3 L Magnesium 1.7 Total Bilirubin 1.2 H Direct Bilirubin AST 34 ALT 31 Alkaline Phosphatase 189 H Total Creatine Kinase 319 H Troponin I High Sens B-Natriuretic Peptide Total Protein 4.7 L Albumin 2.3 L Prealbumin Lipase Urine Color Urine Appearance Urine pH Ur Specific [place] Urine Protein Urine Glucose (UA) Urine Ketones Urine Blood Urine Nitrite Ur Leukocyte Esterase Urine RBC Urine WBC Ur Squamous Epith Cells Urine Bacteria Hyaline Casts COVID-19 (HELENA) COVID-19 Clin Com Influenza Type A (JAMES) Influenza Type B (JAMES) Influenza A & B Note 04/29/22 04/29/22 05:34 08:30 WBC RBC Hgb Hct MCV MCH MCHC RDW Plt Count MPV Immature Gran % (Auto) Neut % (Auto) Lymph % (Auto) [place] % (Auto) Eos % (Auto) Baso % (Auto) Lymph # (Auto) [place] # (Auto) Eos # (Auto) Baso # (Auto) Abs Immat Gran (auto) Absolute Neuts (auto) Absolute Nucleated RBC Nucleated RBC % (auto) Neutrophils % (Manual) Band Neutrophils % Lymphocytes % (Manual) Monocytes % (Manual) Abs Neuts (Manual) Lymphocytes # (Manual) Monocytes # (Manual) Toxic Vacuolation Dohle Bodies Platelet Estimate Large Platelets Plt Morphology Comment RBC Morphology Polychromasia Blayne Cells Smear Tech's Comments PT INR VBG pH VBG pCO2 VBG pO2 VBG HCO3 VBG O2 Saturation VBG Base Excess Sodium Potassium Chloride Carbon Dioxide Anion Gap BUN Creatinine Estim Creat Clear Calc Estimated GFR POC Glucose 189 H 186 H Random Glucose Estimat Average Glucose Hemoglobin A1c % Lactic Acid Lactic Acid F/U @ 2Hr Lactic Acid F/U @ 4Hr Calcium Phosphorus Magnesium Total Bilirubin Direct Bilirubin AST ALT Alkaline Phosphatase Total Creatine Kinase Troponin I High Sens B-Natriuretic Peptide Total Protein Albumin Prealbumin Lipase Urine Color Urine Appearance Urine pH Ur Specific [place] Urine Protein Urine Glucose (UA) Urine Ketones Urine Blood Urine Nitrite Ur Leukocyte Esterase Urine RBC Urine WBC Ur Squamous Epith Cells Urine Bacteria Hyaline Casts COVID-19 (HELENA) COVID-19 Clin Com Influenza Type A (JAMES) Influenza Type B (JAMES) Influenza A & B Note Microbiology Microbiology Results: Microbiology 04/28/22 14:05 Blood - Venous Blood Culture - Preliminary Prelim: GNR Gram Stain only 04/28/22 14:06 Blood - Venous Blood Culture - Preliminary Prelim: GNR Gram Stain only Progress Note: A&P Assessment and plan (1) Protein malnutrition: Status: Acute (2) Immunosuppression due to drug therapy: Status: Acute (3) GAIL (acute kidney injury): Status: Acute (4) New onset a-fib: Status: Acute (5) Diabetes: Status: Acute (6) Bacteremia: Status: Acute (7) Acute cholecystitis: Status: Acute (8) Psoriatic arthritis: Status: Acute (9) Obstructive sleep apnea: Status: Acute Plan Assessment: 77-year-old gentleman with underlying 3 attack arthritis on Enbrel, diabetes mellitus, history of a patient admitted with acute dehydration and acute cholecystitis with Gram-negative bacteremia. Plan: Neuro: No acute issues. Cardiac: Likely underlying congestive heart failure. 2D echocardiogram is pending. Pulmonary: No acute issues. Renal: acute kidney injury secondary to intravascular volume depletion with hypoperfusion and Gram-negative bacteremia. Improving. Non oliguric. Continue to monitor renal indices and urine output. Endo: No acute issues. Underlying diabetes mellitus, continue on subcu insulin. GI: Acute cholecystitis. General surgery service care appreciated. No plan for intervention at this time. ID: Acute cholecystitis with Gram-negative bacteremia. Continue on Zosyn until cultures are finalized. Heme/Onc: No acute issues. Psych: No acute issues. Miscellaneous: No acute issues. Prophylaxis: Heparin Diet: clear liquids at this time patient is stable to be transferred to telemetry ling. Transfer discussed with Dr. Warren. Quality Stroke Does the patient have a stroke diagnosis?: No VTE Prior VTE?: No VTE Risk Level:: Medical - moderate - high VTE Device Contraindication: Treatment Not Indicated VTE Drug Contraindication: N/A - Med Ordered
[2022-04-29 11:33] LABS: Glucose, Whole Blood 182 mg/dL (60-115)
[2022-04-29] MEDS: Insulin Lispro 100 UNIT/ML 3 ML VIAL SUBCUT ×3 (11:44→21:30)
[2022-04-29] MEDS: Furosemide 40 MG/4 ML VIAL IVPUSH (13:10)
[2022-04-29] MEDS: Potassium Chloride Packet 20 MEQ PACKET 60 MEQ PO (13:58)
--- NOTE | 2022-04-29 15:47 | ECG_ITS ---
Test Reason : rhythm change Blood Pressure : / mmHG Vent. Rate : 167 BPM Atrial Rate : 000 BPM P-R Int : 000 ms QRS Dur : 082 ms QT Int : 290 ms P-R-T Axes : 000 085 -04 degrees QTc Int : 483 ms Atrial fibrillation with rapid ventricular response Abnormal QRS-T angle, consider primary T wave abnormality Abnormal ECG When compared with ECG of 28-APR-2022 13:35, Atrial fibrillation has replaced Sinus rhythm Vent. rate has increased BY 67 BPM Questionable change in QRS axis Inverted T waves have replaced nonspecific T wave abnormality in Inferior leads Referred By: Kimani Warren Electronically Signed By:CHAZ KNAPP MD
[2022-04-29] MEDS: Magnesium Sulfate/H2O 2 GM/50 ML PIGGYBACK IV (15:54)
[2022-04-29] MEDS: Metoprolol Tartrate 5 MG/5 ML VIAL IVPUSH (15:55)
--- NOTE | 2022-04-29 16:23 | PM.EVENT ---
Event Note Date of Service: 04/29/22 Event Note: 77M admitted to icu with severe sepsis due to acute cholecystitis, now complicated by GNR bactremia and afib with rvr. initally stable for transfer to medical floor, now with acute hypoxic respiratory failure and sepsis and back in afib with rvr. will hold off on transfer from ICU. Time Spent With Patient Time: Total time managing care of this patient today ____ minutes.
[2022-04-29] MEDS: Acetaminophen 325 MG TABLET 650 MG PO ×2 (16:25→23:35)
[2022-04-29 16:32] LABS: Glucose, Whole Blood 228 mg/dL (60-115)
[2022-04-29] MEDS: Amiodarone/Dextrose 150 MG/100 ML PLAST..BAG 600 MG IV (16:35)
[2022-04-29] MEDS: Metoprolol Tartrate 25 MG TABLET PO (16:38)
[2022-04-29] MEDS: Amiodarone HCL 900 MG in 0.9 % Sodium Chloride 500 ML 34.53 MG IVCONT (16:45)
[2022-04-29 16:56] LABS: VBG Base Excess 1.5 mmol/L; VBG HCO3 22 mmol/L (22-26); VBG pCO2 26 mmHg; VBG pH 7.54 (7.32-7.43); VBG pO2 59 mmHg
--- NOTE | 2022-04-29 17:03 | PC.RT ---
Pt placed on hfnc, rr >26, spo2 89% on 10 lpm oxymask and pt in a-fib with variable hr 110-145. At 40 lpm and 80% vbg 7.54 / 26 / 59 / 89% / 22. Dr Metz notified, RN aware. Pt is rosangela well, in no resp distress at this time with rr 18-22 and spo2 95%.
[2022-04-29 17:25] LABS: Alanine Aminotransferase 41 U/L (0-40); Albumin Level 2.9 g/dL (3.5-5.0); Alkaline Phosphatase 280 U/L (39-117); Aspartate Amino Transferase 46 U/L (5-37); Bilirubin Total 2.2 mg/dL (0.0-1.0); Blood Urea Nitrogen 33 mg/dL (9-16); Calcium 7.6 mg/dL (8.4-10.2); Creatinine Clr Calc Pharmacy 56.7; Estimated Glomerular Filt Rate 57; Glucose Random 254 mg/dL (60-115)
[2022-04-29 17:35] LABS: Anion Gap 17 (12-20); Carbon Dioxide 21 mmol/L (22-29); Chloride 101 mmol/L (96-108); Potassium 3.6 mmol/L (3.3-5.1); Sodium 135 mmol/L (135-145)
[2022-04-29] MEDS: Norepinephrine Bitartrate/D5W 8 MG/250 ML PLAST..BAG 8.47 MG IV (17:37)
--- NOTE | 2022-04-29 18:07 | PC.NURSE ---
1300: Pt presenting with increased respiratory effort - RR mid 30's, accessory muscle use, auscultated new expiratory wheeze throughout - placed on 7L Oxymask. Afebrile, MAP >65, sinus HR 80-90's. MD aware - 40mg IV lasix order and administered - approx. 900cc output. Chest XR ordered and completed - see report. EKG ordered and obtained - see report. Pt appears more comfortable with decreased respiratory effort, denies any SOB, sating low 90's on 7L Oxymask. 1600: Pt went into new afib rvr, HR 170s-180s. Pt asymptomatic- denies any chest pain, SOB, dizziness, nausea. Dr Warren notified and at bedside. EKG ordered and completed - see report. 5mg IVP Lopressor and 2g IV Mag given per order. Increased respiratory effort, 88-90% on 10L oxymask, lungs clear with dim bases, RR high 30s, HR 150s, BP 111/69, core temp 102.7 - Tylenol administered. Dr Metz accepted back under ICU care. Pt placed on HF 40L 80%, sating 95%. Amio loading dose administered and Amio gtt started at 1645 per order - remains Afib HR maintaining 130s. IV Albumin 25% 100cc administered at 1717. MAP maintaining 55-62 - Levophed gtt started at 1744 - PRN Angio #20 x3 obtained - okay to administer levophed through angio per MD.Pt now resting comfortably in bed, afib on tele, HR 90-110s, MAP >65 with levophed support, 96% on HF 40L 80%, RR 20s, core temp down to 99.5.
[2022-04-29 21:14] LABS: Glucose, Whole Blood 215 mg/dL (60-115)
[2022-04-29 22:13] LABS: VBG Base Excess 2.8 mmol/L; VBG HCO3 25 mmol/L (22-26); VBG pCO2 31 mmHg; VBG pO2 46 mmHg
[2022-04-29 23:15] LABS: Venous Blood Gas Refer to POC result
[2022-04-29 23:15] LABS: Venous Blood Gas Refer to POC result
[2022-04-30] VITALS (32 sets, daily range): BP systolic 96–142; BP diastolic 47–71; PULSE 59–184; RESP 13–79; TEMP 36.9–38.9; O2SAT 74–96; BMI 29.5
[2022-04-30] MEDS: Piperacillin Sodium/Tazobactam 3.375 GM in 0.9 % Sodium Chloride 50 ML IV ×4 (02:40→21:38)
[2022-04-30] MEDS: Heparin Sodium,Porcine 5,000 UNIT/ML VIAL 5000 UNIT SUBCUT ×3 (02:42→18:15)
[2022-04-30] MEDS: Acetaminophen 325 MG TABLET 650 MG PO ×2 (05:00→14:15)
[2022-04-30 05:55] LABS: VBG Base Excess 2.4 mmol/L; VBG HCO3 23 mmol/L (22-26); VBG pCO2 28 mmHg; VBG pH 7.53 (7.32-7.43); VBG pO2 79 mmHg
[2022-04-30 05:59] LABS: Basophils Absolute Auto 0.1 X10*3/uL (0.0-0.2); Basophils Percent Auto 0.3 % (0-2); Eosinophils Percent Auto 0.1 % (0-4); Hemoglobin 13.2 g/dl (14.0-18.0); Imm Gran Abs Auto 0.56 X10*3/uL (0.00-0.03); Lymphocytes Absolute Auto 0.5 X10*3/uL (1.2-4.9); Lymphocytes Percent Auto 2.6 % (20-40); MANUAL DIFF FLAG SCAN; Mean Corpuscular HGB Conc 34.7 g/dl (31.0-36.0); Mean Corpuscular Hemoglobin 31.3 pg (27.0-33.0); Mean Platelet Volume 11.8 fL (9.4-12.4); Monocytes Absolute Auto 0.8 X10*3/uL (0.1-1.2); Monocytes Percent Auto 4.3 % (2-11); Neutrophils Absolute Auto 16.5 x10*3/uL (2.0-8.3); Neutrophils Percent Auto 89.7 % (45-73); PLT CLUMP 1; Red Blood Count 4.22 X10*6/uL (4.60-5.80); Red Cell Distribution Width 13.2 % (11.0-16.0); SCAN SMEAR FLAG 1
[2022-04-30 06:04] LABS: Venous Blood Gas Refer to POC result
[2022-04-30 06:15] LABS: White Blood Count 18.4 X10*3/uL (4.8-10.8)
[2022-04-30 06:16] LABS: Platelet Count 138 X10*3/uL (160-400); SLIDE REVIEW VERIFIED
[2022-04-30 06:28] LABS: Alanine Aminotransferase 54 U/L (0-40); Albumin Level 3.1 g/dL (3.5-5.0); Alkaline Phosphatase 270 U/L (39-117); Anion Gap 20 (12-20); Aspartate Amino Transferase 55 U/L (5-37); Bilirubin Direct 1.7 mg/dL (0.0-0.5); Bilirubin Total 3.1 mg/dL (0.0-1.0); Blood Urea Nitrogen 30 mg/dL (9-16); Calcium 8.1 mg/dL (8.4-10.2); Carbon Dioxide 22 mmol/L (22-29); Chloride 103 mmol/L (96-108); Creatinine Clr Calc Pharmacy 62.3; Estimated Glomerular Filt Rate > 60; Glucose Fasting 183 mg/dL (60-99); Glucose Random 182 mg/dL (60-115); Magnesium 1.9 mg/dL (1.6-2.6); Potassium 3.9 mmol/L (3.3-5.1); Sodium 141 mmol/L (135-145); Total Protein 5.5 g/dL (6.5-8.0)
--- NOTE | 2022-04-30 07:00 | CA_ITS ---
Transthoracic Echocardiogram Patient (Last, First, Middle): Villa Kang J Gender: Male Date of : 1945 Age: 77 Procedure Date: 04/30/2022 Procedure Type: Transthoracic Echocardiogram Location: ICU Height: 175.26 cm Weight: 90.27 kg BSA: 2.06 m2 Heart Rate: 77 bpm BP: 105 / 56 mmHg [employer] Supervisor: GEN Cuellar MD: Magnolia Randle [employer] Operator: Vince Valadez MD Symptoms: Arrythmia Study Quality: Fair/Contrast ECG Rhythm: Sinus Conclusions: - 1. Normal LV systolic function with normal diastolic filling pattern 2. Normal cardiac valvular Doppler 3. Normal RV systolic pressure 4. No gross pericardial effusion Findings Procedure Information Contrast agent, definity, is being given per protocol without apparent complications. Left Ventricle Normal left ventricular size, thickness, and systolic function. The visually estimated ejection fraction is between 55-60%. Spectral Doppler is indicative of a normal filling pattern. Right Ventricle Normal right ventricular cavity size. There is borderline right ventricular systolic function. Atria The left atrium is normal in size. Interatrial shunt cannot be excluded. The right atrium was not well visualized. Aortic Valve The aortic valve was not well visualized. There is no aortic valve stenosis. There is no aortic valve regurgitation. Mitral Valve There is mild anterior mitral leaflet thickening. There is trace mitral valve regurgitation. There is no mitral valve stenosis. Pulmonic Valve The pulmonic valve was not well visualized. Tricuspid Valve Likely normal tricuspid valve structure and function. There is trace tricuspid valve regurgitation. The right ventricular systolic pressure is normal. The right ventricular systolic pressure is 30 mmHg. Normal right atrial pressure. There is no evidence of pulmonary hypertension. Great Vessels The aorta was not well visualized. The pulmonary artery was not well visualized. Venous The inferior vena cava is normal in size. Pericardium/Pleural There is no evidence of pericardial effusion. Prior Study Comparison No prior study available for comparison. Measurements 2D Linear Measurements IVSd: 1.00 0.6-0.9/0.6-1.0 cm LVIDd: 3.32 3.9-5.3/4.2-5.9 cm LVIDd Index: 1.61 2.4-3.2/2.2-3.1 cm/m2 LVIDs: 1.52 2.0-3.6 cm LVPWd: 1.03 0.7-1.1 cm LA Diam: 2.90 2.7-3.8/3.0-4.0 cm LAIDs Index: 1.41 1.5-2.3 cm/m2 LV Mass: 121.20 67-162/88-224 g LV Mass Index: 58.83 43-95/49-115 g/m2 LVOT Diam: 2.20 3.0+(-)1.3 cm 2D Systolic Function EF 4C: 59.10 >55% EF 2C: 48.00 >55% Mitral Valve MV Pk E: 1.05 MV PK A: 0.93 MV Decel Time: 143.00 E/A: 1.10 E'Lateral: 8.27 E'Medial: 6.31 E/E' Med: 16.60 E/E' Lat: 12.70 PHT: 42.00 MVA PHT: 5.24 Decel Schuyler: 7.38 Aortic Valve AoV Pk Satish: 1.21 AoV Mn Satish: 0.91 AoV VTI: 0.25 AoV Pk Grad: 6.00 Aov Mn Grad: 4.00 ЕЛЕНА Cont.VTI: 3.97 LVOT LVOT Pk Satish: 1.25 LVOT Mn Satish: 0.87 LVOT VTI: 0.26 LVOT Pk Grad: 6.00 LVOT Mn Grad: 4.00 LVOT Diam: 2.20 LVOT Area: 3.80 Diastolic Function MV Pk E: 1.05 MV Pk A: 0.93 E/A: 1.10 E'Medial: 6.31 E/E' Med: 16.60 E' Laterial: 8.27 E/E' Lat: 12.70 Right Ventricle TAPSE (mm): 16.30 TVS' Satish: 14.60 Tricuspid Valve TR Pk Satish: 2.62 TR Pk Grad: 27.00 RA Press: 3.00 RVSP: 30.00 Great Vessels Aorta Sinus of Valsalva: 3.60 2.0-3.5 cm Ao Asc: 3.70 2.1-3.4 cm Pulmonary Valve PV Pk Satish: 0.68 Peak PV Grad: 2.00 Updated in Other Vendor System with Status of Final Vince Valadez MD electronically signed on 04/30/2022 1:53:57 PM with status of Final
[2022-04-30 07:26] LABS: Glucose, Whole Blood 210 mg/dL (60-115)
--- NOTE | 2022-04-30 07:55 | PM.PNGS ---
Subjective Subjective Date of Service: 04/30/22 Patient reports: no new complaints, still having pain and tolerating liquids well Interval history: The patient reports ongoing right upper quadrant discomfort but believes he feels better and is asking about having his diet advanced. He otherwise denies difficulty breathing, chest pain, shortness of breath. Physical Exam Vital Signs: Vital Signs: Last Vital Signs Temp 101.1 F H 04/30/22 07:00 Pulse 79 04/30/22 07:00 Resp 22 H 04/30/22 07:00 BP 124/62 04/30/22 07:00 Pulse Ox 91 L 04/30/22 06:00 O2 Del Method 04/30/22 07:00 O2 Flow Rate 40 04/30/22 07:00 FiO2 60 04/30/22 07:00 BMI result Body Mass Index 29.5 On exam he is anicteric and nontoxic He is in no acute respiratory distress His abdomen is obese and soft with right upper quadrant tenderness but no rebound, rigidity or guarding Objective Data Active Medications Acetaminophen (Acetaminophen 325 Mg Tablet) 650 mg PO Q4H PRN PRN Reason: fever Last Admin: 04/30/22 05:00 Dose: 650 mg Documented By: GENARO Heparin Sodium (Porcine) (Heparin Sodium,Porcine 5,000 Unit/Ml Vial) 5,000 unit SUBCUT Q8H [facility] Last Admin: 04/30/22 02:42 Dose: 5,000 unit Documented By: GENARO Piperacillin Sod/Tazobactam (Sod 3.375 gm/ Sodium Chloride) 50 mls @ 100 mls/hr IV Q6H [facility] Last Infusion: 04/30/22 03:34 Dose: 0 mls/hr Documented By: GENARO Amiodarone HCl 900 mg/ Sodium (Chloride) 518 mls @ 34.533 mls/hr IVCONT .Q15H1M [facility]; Protocol Last Infusion: 04/29/22 22:45 Dose: 0.5 mg/min, 17.27 mls/hr Documented By: GENARO Norepinephrine Bitartrate (Levophed) 8 mg in 250 mls @ 0 mls/hr IV .Q0M [facility]; Protocol Last Titration: 04/30/22 04:37 Dose: 0 mcg/kg/min, 0 mls/hr Documented By: HO.N-SOFFA Potassium Phosphate (Kphos) 15 mmol in 250 mls @ 62.5 mls/hr IV ONCE ONE Stop: 04/30/22 11:59 Insulin Human Lispro (Insulin Lispro 100 Unit/Ml 3 Ml Vial) 0 unit SUBCUT CORINNE [facility]; Protocol Last Admin: 04/29/22 21:30 Dose: 4 unit Documented By: GENARO Labs 04/30/22 05:08 04/30/22 05:08 Labs: Laboratory Results - last 24 hr 04/28/22 04/29/22 04/29/22 18:08 08:30 11:29 MCV MCH MCHC RDW Plt Count MPV Immature Gran % (Auto) Neut % (Auto) Lymph % (Auto) [place] % (Auto) Eos % (Auto) Baso % (Auto) Lymph # (Auto) [place] # (Auto) Eos # (Auto) Baso # (Auto) Abs Immat Gran (auto) Absolute Neuts (auto) Absolute Nucleated RBC Nucleated RBC % (auto) Smear Tech's Comments VBG pH VBG pCO2 VBG pO2 VBG HCO3 VBG O2 Saturation VBG Base Excess Anion Gap Estim Creat Clear Calc Estimated GFR POC Glucose 186 H 182 H Random Glucose Fasting Glucose Estimat Average Glucose 183 Hemoglobin A1c % 8.0 Calcium Phosphorus Magnesium Total Bilirubin Direct Bilirubin AST ALT Alkaline Phosphatase Total Protein Albumin 04/29/22 04/29/22 04/29/22 16:28 16:48 16:56 MCV MCH MCHC RDW Plt Count MPV Immature Gran % (Auto) Neut % (Auto) Lymph % (Auto) [place] % (Auto) Eos % (Auto) Baso % (Auto) Lymph # (Auto) [place] # (Auto) Eos # (Auto) Baso # (Auto) Abs Immat Gran (auto) Absolute Neuts (auto) Absolute Nucleated RBC Nucleated RBC % (auto) Smear Tech's Comments VBG pH 7.54 H VBG pCO2 26 VBG pO2 59 VBG HCO3 22 VBG O2 Saturation 89.0 VBG Base Excess 1.5 Anion Gap 17 Estim Creat Clear Calc 56.7 Estimated GFR 57 POC Glucose 228 H Random Glucose 254 H Fasting Glucose Estimat Average Glucose Hemoglobin A1c % Calcium 7.6 L Phosphorus Magnesium Total Bilirubin 2.2 H Direct Bilirubin AST 46 H ALT 41 H Alkaline Phosphatase 280 H Total Protein 5.0 L Albumin 2.9 L 02/05/23 02/05/23 02/06/23 21:11 22:06 05:08 MCV 90.0 MCH 31.3 MCHC 34.7 RDW 13.2 Plt Count 138 L MPV 11.8 Immature Gran % (Auto) 3.0 H Neut % (Auto) 89.7 H Lymph % (Auto) 2.6 L [place] % (Auto) 4.3 Eos % (Auto) 0.1 Baso % (Auto) 0.3 Lymph # (Auto) 0.5 L [place] # (Auto) 0.8 Eos # (Auto) 0.0 Baso # (Auto) 0.1 Abs Immat Gran (auto) 0.56 H Absolute Neuts (auto) 16.5 H Absolute Nucleated RBC 0.000 Nucleated RBC % (auto) 0.0 Smear Tech's Comments VERIFIED VBG pH 7.50 H VBG pCO2 31 VBG pO2 46 VBG HCO3 25 VBG O2 Saturation 75.0 VBG Base Excess 2.8 Anion Gap Estim Creat Clear Calc Estimated GFR POC Glucose 215 H Random Glucose Fasting Glucose Estimat Average Glucose Hemoglobin A1c % Calcium Phosphorus Magnesium Total Bilirubin Direct Bilirubin AST ALT Alkaline Phosphatase Total Protein Albumin 04/30/22 04/30/22 04/30/22 05:08 05:48 07:20 MCV MCH MCHC RDW Plt Count MPV Immature Gran % (Auto) Neut % (Auto) Lymph % (Auto) [place] % (Auto) Eos % (Auto) Baso % (Auto) Lymph # (Auto) [place] # (Auto) Eos # (Auto) Baso # (Auto) Abs Immat Gran (auto) Absolute Neuts (auto) Absolute Nucleated RBC Nucleated RBC % (auto) Smear Tech's Comments VBG pH 7.53 H VBG pCO2 28 VBG pO2 79 VBG HCO3 23 VBG O2 Saturation 95.0 VBG Base Excess 2.4 Anion Gap 20 Estim Creat Clear Calc 62.3 Estimated GFR > 60 POC Glucose 210 H Random Glucose 182 H Fasting Glucose 183 H Estimat Average Glucose Hemoglobin A1c % Calcium 8.1 L D Phosphorus 2.0 L Magnesium 1.9 Total Bilirubin 3.1 H Direct Bilirubin 1.7 H AST 55 H ALT 54 H Alkaline Phosphatase 270 H Total Protein 5.5 L Albumin 3.1 L Microbiology Microbiology Results: Microbiology 04/28/22 14:05 Blood Culture - Preliminary Blood - Venous Prelim: GNR Gram Stain only 04/28/22 14:06 Blood Culture - Preliminary Blood - Venous Prelim: GNR Gram Stain only Procedures Date of Service Date of Service: 04/30/22 Progress Note: A&P Assessment and plan (1) Acute cholecystitis: Status: Acute (2) Obstructive sleep apnea: Status: Acute (3) Bacteremia: Status: Acute (4) Diabetes: Status: Acute (5) Normal pressure hydrocephalus: Status: Acute (6) Protein malnutrition: Status: Acute (7) 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 Continue NPO and antibiotics. Time Spent With Patient Time: Total time managing care of this patient today ____ minutes. Quality Stroke Does the patient have a stroke diagnosis?: No VTE Prior VTE?: No VTE Risk Level:: Medical - moderate - high VTE Device Contraindication: Treatment Not Indicated VTE Drug Contraindication: N/A - Med Ordered
--- NOTE | 2022-04-30 07:56 | PC.NURSE ---
Assumed care at 19:00. Patient was initially found to be confused immediately upon being awakened, and was newly disoriented to place, time, and situation. Patient otherwise had unremarkable neurological assessment with exception of a headache 2/10 right side of head, and later a mild feeling of pressure there as opposed to pain per se. PERRLA, equal strength bilaterally, somewhat poor articulation but able to speak clearly when asked. Patient was at that time resistant to care, refusing insulin and SQ heparin, and refusing labs, but was educated and with help of WEALTH MANAGEMENT ADVISOR was compliant. Patient VBG checked and CO2 was unremarkable, and patient began to clear after being reminded of his location and the date. Patient also had POC at that time checked and unremarkable. Patient was afterwards alert and oriented x4, continued to have pressure sensation in head but tolerating, and was exhibiting insomnia, only napping briefly often to be interrupted with coughing fits of dry cough. Discussed with patient's HCP who asked if patient might be re-checked for covid, and MD is aware. Patient has had mildly elevated temperature as high as 102; discussed with WEALTH MANAGEMENT ADVISOR and tylenol administered for fever with good effect. Patient [id number]
--- NOTE | 2022-04-30 08:04 | PC.NURSE ---
Assumed care at 19:00. Patient was initially confused and disoriented to all but person. SUPERVISOR BLUEPRINTING AND PHOTOCOPY notified, and patient neuros mostly unremarkable except headache/pressure mild at right side of head, resolved with tylenol and repositoining. Patient's VBG checked and was unremarkable. Patient mental status cleared with reminders of location and date and situation. Patient initially refusing insulin and heparin and lab work, but was compliant after education. Patient with fever Tmax 102, SUPERVISOR BLUEPRINTING AND PHOTOCOPY aware. Patient HCP asking about rechecking patient for MD lisa aware. Patient was having some insomnia, no CPAP overnight per SUPERVISOR BLUEPRINTING AND PHOTOCOPY, used high flow which was titrated down FiO2 from 80% 40 LPM to 60% 40 LPM, with good effect, sat goal 92%, SpO2 around 91 %, less tachypnea overnight, patient did awaken coughing often each time he would fall asleep and slept poorly. OOB to recliner this morning after discussion with SUPERVISOR BLUEPRINTING AND PHOTOCOPY that bedrest order not necessary at this time. Patient with ordered CT guided drainage of cholecystitis, called IR this morning and they are asking for 8 hours of NPO status, notified, patient kept NPO as of 730 AM. Patient with 2 x loose brown stool, aware.
[2022-04-30] MEDS: Potassium Phosphate/NS 15 MMOL/250 ML PLAST..BAG 62.5 MMOL IV (08:07)
[2022-04-30] MEDS: Insulin Lispro 100 UNIT/ML 3 ML VIAL SUBCUT ×3 (08:07→21:43)
[2022-04-30] MEDS: Amiodarone HCL 200 MG TABLET PO (08:22)
[2022-04-30] MEDS: Furosemide 40 MG/4 ML VIAL IVPUSH (08:23)
--- NOTE | 2022-04-30 10:05 | MHC.CM.PN ---
Met w/pt in ICU to discuss d/c planning needs: pt resides alone, active, drives, no services or DME: Pt states he will return home without the need for services: Pt states his dtr Belen will ensure he has [employer] upon return to home and will transport pt home. Pt has cell at bedside. IMM in chart: HCP copy requested for EMR, fully vaxed/boosted
--- NOTE | 2022-04-30 11:13 | P.PNCC_ITS ---
Subjective Subjective Date of Service: 04/30/22 Interval History: 77-year-old gentleman with prior history of hydrocephalus status post CIGAR TOBACCO PROCESSING SUPERVISOR shunt, psoriatic arthritis on Enbrel, diabetes mellitus, CKD stage 3, [facility] admitted 04/28/2022 after mechanical fall and inability to get up, found by wellness check. On ER evaluation intravascular volume depletion, also acute cholecystitis. Evaluated by General surgery. Initial poor response to IV fluid , but did not require pressors. Monitored in the intensive care unit overnight. Blood cultures with Gram-negative rods. now covered with Zosyn. Patient was deemed to be stable to be transferred to telemetry work, however he developed AFib with RVR and hypotension requiring initiation of amiodarone and briefly pressor support. Now titrated of other pressor sent switched to p.o. amiodarone. Patient is planned for percutaneous cholecystostomy today. Critical Care Time (minutes): 45 Physical Exam Vital Signs: Vital Signs: Last Vital Signs Temp 99.1 F 04/30/22 09:00 Pulse 74 04/30/22 09:00 Resp 25 H 04/30/22 09:00 BP 118/56 L 04/30/22 09:00 Pulse Ox 91 L 04/30/22 09:00 O2 Del Method 04/30/22 09:00 O2 Flow Rate 40 04/30/22 07:00 FiO2 40 04/30/22 09:00 BMI result Body Mass Index 29.5 Const: General: no acute distress, alert and awake Eyes: Sclerae: sclerae normal EOM: EOMs intact bilaterally Neck: Neck: Yes no lymphadenopathy, Yes trachea midline and Yes supple Resp: Effort & Inspection: normal respiratory effort and no respiratory distress Auscultation: clear to auscultation bilaterally Cardio: Rate: regular rate Rhythm: regular rhythm Heart sounds: no gallops, no murmurs and no rubs GI: Palpation (GI): Soft to palpation and Other GI palpation findings present ( Nontender) Auscultation: normal bowel sounds Extrem: General: No clubbing, No cyanosis and Yes edema (1+ bilateral) Objective Data Labs 04/30/22 05:08 04/30/22 05:08 Labs: Laboratory Results - last 24 hr 04/29/22 04/29/22 04/29/22 11:29 16:28 16:48 WBC RBC Hgb Hct MCV MCH MCHC RDW Plt Count MPV Immature Gran % (Auto) Neut % (Auto) Lymph % (Auto) [place] % (Auto) Eos % (Auto) Baso % (Auto) Lymph # (Auto) [place] # (Auto) Eos # (Auto) Baso # (Auto) Abs Immat Gran (auto) Absolute Neuts (auto) Absolute Nucleated RBC Nucleated RBC % (auto) Smear Tech's Comments VBG pH 7.54 H VBG pCO2 26 VBG pO2 59 VBG HCO3 22 VBG O2 Saturation 89.0 VBG Base Excess 1.5 Sodium Potassium Chloride Carbon Dioxide Anion Gap BUN Creatinine Estim Creat Clear Calc Estimated GFR POC Glucose 182 H 228 H Random Glucose Fasting Glucose Calcium Phosphorus Magnesium Total Bilirubin Direct Bilirubin AST ALT Alkaline Phosphatase Total Protein Albumin 04/29/22 04/29/22 04/29/22 16:56 21:11 22:06 WBC RBC Hgb Hct MCV MCH MCHC RDW Plt Count MPV Immature Gran % (Auto) Neut % (Auto) Lymph % (Auto) [place] % (Auto) Eos % (Auto) Baso % (Auto) Lymph # (Auto) [place] # (Auto) Eos # (Auto) Baso # (Auto) Abs Immat Gran (auto) Absolute Neuts (auto) Absolute Nucleated RBC Nucleated RBC % (auto) Smear Tech's Comments VBG pH 7.50 H VBG pCO2 31 VBG pO2 46 VBG HCO3 25 VBG O2 Saturation 75.0 VBG Base Excess 2.8 Sodium 135 Potassium 3.6 Chloride 101 Carbon Dioxide 21 L Anion Gap 17 BUN 33 H Creatinine 1.23 Estim Creat Clear Calc 56.7 Estimated GFR 57 POC Glucose 215 H Random Glucose 254 H Fasting Glucose Calcium 7.6 L Phosphorus Magnesium Total Bilirubin 2.2 H Direct Bilirubin AST 46 H ALT 41 H Alkaline Phosphatase 280 H Total Protein 5.0 L Albumin 2.9 L 04/30/22 04/30/22 04/30/22 05:08 05:08 05:48 WBC 18.4 H RBC 4.22 L Hgb 13.2 L Hct 38.0 L MCV 90.0 MCH 31.3 MCHC 34.7 RDW 13.2 Plt Count 138 L MPV 11.8 Immature Gran % (Auto) 3.0 H Neut % (Auto) 89.7 H Lymph % (Auto) 2.6 L [place] % (Auto) 4.3 Eos % (Auto) 0.1 Baso % (Auto) 0.3 Lymph # (Auto) 0.5 L [place] # (Auto) 0.8 Eos # (Auto) 0.0 Baso # (Auto) 0.1 Abs Immat Gran (auto) 0.56 H Absolute Neuts (auto) 16.5 H Absolute Nucleated RBC 0.000 Nucleated RBC % (auto) 0.0 Smear Tech's Comments VERIFIED VBG pH 7.53 H VBG pCO2 28 VBG pO2 79 VBG HCO3 23 VBG O2 Saturation 95.0 VBG Base Excess 2.4 Sodium 141 Potassium 3.9 Chloride 103 Carbon Dioxide 22 Anion Gap 20 BUN 30 H Creatinine 1.12 Estim Creat Clear Calc 62.3 Estimated GFR > 60 POC Glucose Random Glucose 182 H Fasting Glucose 183 H Calcium 8.1 L D Phosphorus 2.0 L Magnesium 1.9 Total Bilirubin 3.1 H Direct Bilirubin 1.7 H AST 55 H ALT 54 H Alkaline Phosphatase 270 H Total Protein 5.5 L Albumin 3.1 L 04/30/22 07:20 WBC RBC Hgb Hct MCV MCH MCHC RDW Plt Count MPV Immature Gran % (Auto) Neut % (Auto) Lymph % (Auto) [place] % (Auto) Eos % (Auto) Baso % (Auto) Lymph # (Auto) [place] # (Auto) Eos # (Auto) Baso # (Auto) Abs Immat Gran (auto) Absolute Neuts (auto) Absolute Nucleated RBC Nucleated RBC % (auto) Smear Tech's Comments VBG pH VBG pCO2 VBG pO2 VBG HCO3 VBG O2 Saturation VBG Base Excess Sodium Potassium Chloride Carbon Dioxide Anion Gap BUN Creatinine Estim Creat Clear Calc Estimated GFR POC Glucose 210 H Random Glucose Fasting Glucose Calcium Phosphorus Magnesium Total Bilirubin Direct Bilirubin AST ALT Alkaline Phosphatase Total Protein Albumin Microbiology Microbiology Results: Microbiology 04/28/22 14:05 Blood - Venous Blood Culture - Preliminary Gram negative maria c 04/28/22 14:06 Blood - Venous Blood Culture - Preliminary Gram negative maria c Progress Note: A&P Assessment and plan (1) Protein malnutrition: Status: Acute (2) Immunosuppression due to drug therapy: Status: Acute (3) GAIL (acute kidney injury): Status: Acute (4) New onset a-fib: Status: Acute (5) Diabetes: Status: Acute (6) Obstructive sleep apnea: Status: Acute (7) Bacteremia: Status: Acute (8) Acute cholecystitis: Status: Acute Plan Assessment: 77-year-old gentleman with underlying 3 attack arthritis on Enbrel, diabetes mellitus, history of a patient admitted with acute dehydration and acute cholecystitis with Gram-negative bacteremia. Plan: Neuro: No acute issues. Cardiac: Likely underlying congestive heart failure. 2D echocardiogram is pending. Titrated off pressors. New onset AFib with RVR. Will request cardiology evaluation. Switched from IV amiodarone to p.o.. Pulmonary: No acute issues. Renal: acute kidney injury secondary to intravascular volume depletion with hypoperfusion and Gram-negative bacteremia. Improving. Non oliguric. Continue to monitor renal indices and urine output. Endo: No acute issues. Underlying diabetes mellitus, continue on subcu insulin. GI: Acute cholecystitis. General surgery service care appreciated. Planned for percutaneous cholecystostomy today. ID: Acute cholecystitis with Gram-negative bacteremia. Continue on Zosyn until cultures are finalized. Heme/Onc: No acute issues. Psych: No acute issues. Miscellaneous: No acute issues. Prophylaxis: Heparin Diet: NPO for procedure Critical care time spent: 45 minutes Quality Stroke Does the patient have a stroke diagnosis?: No VTE Prior VTE?: No VTE Risk Level:: Medical - moderate - high VTE Device Contraindication: Treatment Not Indicated VTE Drug Contraindication: N/A - Med Ordered
[2022-04-30 12:03] LABS: Glucose, Whole Blood 142 mg/dL (60-115)
[2022-04-30] MEDS: Amiodarone/Dextrose 150 MG/100 ML PLAST..BAG 600 MG IV (13:27)
[2022-04-30] MEDS: Amiodarone HCL 900 MG in 0.9 % Sodium Chloride 500 ML 34.53 MG IVCONT (13:51)
[2022-04-30 17:03] LABS: Glucose, Whole Blood 176 mg/dL (60-115)
[2022-04-30 21:27] LABS: Glucose, Whole Blood 415 mg/dL (60-115)
[2022-04-30] MEDS: Metoprolol Tartrate 5 MG in 0.9 % Sodium Chloride 50 ML 220 MG IV (21:51)
[2022-05-01] VITALS (21 sets, daily range): BP systolic 101–133; BP diastolic 51–91; PULSE 60–76; RESP 15–27; TEMP 36.4–37.2; O2SAT 89–97; BMI 29.6
[2022-05-01] MEDS: Piperacillin Sodium/Tazobactam 3.375 GM in 0.9 % Sodium Chloride 50 ML IV (03:42)
[2022-05-01] MEDS: Heparin Sodium,Porcine 5,000 UNIT/ML VIAL 5000 UNIT SUBCUT ×3 (03:45→20:37)
--- NOTE | 2022-05-01 04:22 | PC.NURSE ---
PT DENIES PAIN. TAKING CLEAR LIQUIDS WELL. NO NAUSEA OR VOMITTING. RIGHT ABD WITH BULB DRAIN. EMPTIED 80 ML OF PUS SINCE TAKING OVER CARE OF PT AT 1900. ABD IS DISTENDED, SEMI FIRM WITH POSITIVE BOWEL SOUNDS. MONITOR HAS BEEN SR, RATE 60'S-80'S BUT WENT BACK INTO AFIB WITH RAPID RATE LAST NIGHT AROUND 9-10 PM. RATE WAS 120'S-130'S. PROVIDER AWARE AND ORDERED METOPROLOL 5 MG IV WITH GOOD EFFECT. AFIB LASTED 1-2 HOURS. AMIODARONE DRIP CONTINUES PER PROTOCOL. BP STABLE. AFEBRILE. PT IS HAVING DIARRHEA. PASSING LIQUID BROWN STOOL ON COMMODE AND ONE TIME WAS INCONTINENT. SKIN INTEGRITY IS GOOD; SLIGHT REDNESS RECTAL AREA. BARRIER CREAM APPLIED.
[2022-05-01 05:33] LABS: VBG Base Excess 3.5 mmol/L; VBG HCO3 26 mmol/L (22-26); VBG pCO2 32 mmHg; VBG pO2 108 mmHg
[2022-05-01 05:33] LABS: Venous Blood Gas Refer to POC result
[2022-05-01 05:37] LABS: Basophils Percent Auto 0.3 % (0-2); PLT CLUMP 1; Red Cell Distribution Width 13.4 % (11.0-16.0); SCAN SMEAR FLAG 1
[2022-05-01 05:39] LABS: Eosinophils Absolute Auto 0.1 X10*3/uL (0.0-0.4); Eosinophils Percent Auto 0.4 % (0-4); Hematocrit 33.9 % (42.0-52.0); Hemoglobin 11.8 g/dl (14.0-18.0); Imm Gran Abs Auto 0.49 X10*3/uL (0.00-0.03); Imm Gran Pct Auto 3.2 % (0.0-0.4); Lymphocytes Absolute Auto 1.5 X10*3/uL (1.2-4.9); Lymphocytes Percent Auto 9.6 % (20-40); MANUAL DIFF FLAG SCAN; Mean Corpuscular HGB Conc 34.8 g/dl (31.0-36.0); Mean Corpuscular Hemoglobin 30.9 pg (27.0-33.0); Mean Corpuscular Volume 88.7 fL (80.0-98.0); Mean Platelet Volume 11.7 fL (9.4-12.4); Monocytes Absolute Auto 1.7 X10*3/uL (0.1-1.2); Monocytes Percent Auto 11.3 % (2-11); Neutrophils Absolute Auto 11.6 x10*3/uL (2.0-8.3); Neutrophils Percent Auto 75.2 % (45-73); Red Blood Count 3.82 X10*6/uL (4.60-5.80)
[2022-05-01 05:42] LABS: Platelet Count 119 X10*3/uL (160-400); White Blood Count 15.4 X10*3/uL (4.8-10.8)
[2022-05-01 06:07] LABS: Alanine Aminotransferase 48 U/L (0-40); Albumin Level 2.5 g/dL (3.5-5.0); Alkaline Phosphatase 211 U/L (39-117); Anion Gap 17 (12-20); Aspartate Amino Transferase 33 U/L (5-37); Bilirubin Total 1.5 mg/dL (0.0-1.0); Blood Urea Nitrogen 26 mg/dL (9-16); Calcium 7.5 mg/dL (8.4-10.2); Carbon Dioxide 20 mmol/L (22-29); Chloride 105 mmol/L (96-108); Creatinine Clr Calc Pharmacy 66.5; Estimated Glomerular Filt Rate > 60; Glucose Random 105 mg/dL (60-115); Magnesium 1.7 mg/dL (1.6-2.6); Phosphorus 2.8 mg/dL (2.7-4.5); Potassium 3.1 mmol/L (3.3-5.1); Sodium 139 mmol/L (135-145); Total Protein 4.7 g/dL (6.5-8.0)
[2022-05-01 06:11] LABS: SLIDE REVIEW VERIFIED
[2022-05-01 07:20] LABS: Glucose, Whole Blood 118 mg/dL (60-115)
--- NOTE | 2022-05-01 07:55 | PM.PNGS ---
Subjective Subjective Date of Service: 05/01/22 Patient reports: feels better Interval history: The patient underwent successful percutaneous cholecystostomy for acute calculous cholecystitis. This is a possible source of his bacteremia. He tolerated clear liquids and has no other complaints. Physical Exam Vital Signs: Vital Signs: Last Vital Signs Temp 98.9 F 05/01/22 05:00 Pulse 62 05/01/22 07:00 Resp 17 05/01/22 07:00 BP 105/51 L 05/01/22 07:00 Pulse Ox 89 L 05/01/22 07:00 O2 Del Method 05/01/22 07:00 O2 Flow Rate 40 05/01/22 07:00 FiO2 55 05/01/22 07:00 BMI result Body Mass Index 29.6 On exam he is anicteric He has some mild right upper quadrant discomfort Purulence/bilious drainage is in the collection bulb Objective Data Active Medications Acetaminophen (Acetaminophen 325 Mg Tablet) 650 mg PO Q4H PRN PRN Reason: fever Last Admin: 04/30/22 14:15 Dose: 650 mg Documented By: LAITH Heparin Sodium (Porcine) (Heparin Sodium,Porcine 5,000 Unit/Ml Vial) 5,000 unit SUBCUT Q8H [facility] Last Admin: 05/01/22 03:45 Dose: 5,000 unit Documented By: DILLAN Piperacillin Sod/Tazobactam (Sod 3.375 gm/ Sodium Chloride) 50 mls @ 100 mls/hr IV Q6H [facility] Last Infusion: 05/01/22 04:21 Dose: 0 mls/hr Documented By: DILLAN Amiodarone HCl 900 mg/ Sodium (Chloride) 518 mls @ 34.533 mls/hr IVCONT .Q15H1M [facility]; Protocol Last Admin: 05/01/22 03:52 Dose: Not Given Documented By: DILLAN Non-Admin Reason: bag not empty Insulin Human Lispro (Insulin Lispro 100 Unit/Ml 3 Ml Vial) 0 unit SUBCUT QIDACHS [facility]; Protocol Last Admin: 05/01/22 07:22 Dose: Not Given Documented By: LAITH Non-Admin Reason: poc oor Labs 05/01/22 05:23 05/01/22 05:23 Labs: Laboratory Results - last 24 hr 04/30/22 04/30/2223 11:55 16:59 21:23 MCV MCH MCHC RDW Plt Count MPV Immature Gran % (Auto) Neut % (Auto) Lymph % (Auto) [place] % (Auto) Eos % (Auto) Baso % (Auto) Lymph # (Auto) [place] # (Auto) Eos # (Auto) Baso # (Auto) Abs Immat Gran (auto) Absolute Neuts (auto) Absolute Nucleated RBC Nucleated RBC % (auto) Smear Tech's Comments VBG pH VBG pCO2 VBG pO2 VBG HCO3 VBG O2 Saturation VBG Base Excess Anion Gap Estim Creat Clear Calc Estimated GFR POC Glucose 142 H 176 H 415 H* Random Glucose Calcium Phosphorus Magnesium Total Bilirubin AST ALT Alkaline Phosphatase Total Protein Albumin 05/01/22 05/01/22 05/01/22 05:23 05:23 05:28 MCV 88.7 MCH 30.9 MCHC 34.8 RDW 13.4 Plt Count 119 L MPV 11.7 Immature Gran % (Auto) 3.2 H Neut % (Auto) 75.2 H Lymph % (Auto) 9.6 L [place] % (Auto) 11.3 H Eos % (Auto) 0.4 Baso % (Auto) 0.3 Lymph # (Auto) 1.5 [place] # (Auto) 1.7 H Eos # (Auto) 0.1 Baso # (Auto) 0.0 Abs Immat Gran (auto) 0.49 H Absolute Neuts (auto) 11.6 H Absolute Nucleated RBC 0.000 Nucleated RBC % (auto) 0.0 Smear Tech's Comments VERIFIED VBG pH 7.50 H VBG pCO2 32 VBG pO2 108 VBG HCO3 26 VBG O2 Saturation 99.0 VBG Base Excess 3.5 Anion Gap 17 Estim Creat Clear Calc 66.5 Estimated GFR > 60 POC Glucose Random Glucose 105 Calcium 7.5 L D Phosphorus 2.8 Magnesium 1.7 Total Bilirubin 1.5 H AST 33 ALT 48 H Alkaline Phosphatase 211 H Total Protein 4.7 L Albumin 2.5 L 05/01/22 07:13 MCV MCH MCHC RDW Plt Count MPV Immature Gran % (Auto) Neut % (Auto) Lymph % (Auto) [place] % (Auto) Eos % (Auto) Baso % (Auto) Lymph # (Auto) [place] # (Auto) Eos # (Auto) Baso # (Auto) Abs Immat Gran (auto) Absolute Neuts (auto) Absolute Nucleated RBC Nucleated RBC % (auto) Smear Tech's Comments VBG pH VBG pCO2 VBG pO2 VBG HCO3 VBG O2 Saturation VBG Base Excess Anion Gap Estim Creat Clear Calc Estimated GFR POC Glucose 118 H Random Glucose Calcium Phosphorus Magnesium Total Bilirubin AST ALT Alkaline Phosphatase Total Protein Albumin Microbiology Microbiology Results: Microbiology 04/28/22 14:05 Blood Culture - Final Blood - Venous Escherichia coli 04/28/22 14:06 Blood Culture - Final Blood - Venous Escherichia coli Procedures Date of Service Date of Service: 05/01/22 Progress Note: A&P Assessment and plan (1) Acute cholecystitis: Status: Acute (2) Bacteremia: Status: Acute (3) Obstructive sleep apnea: Status: Acute (4) Normal pressure hydrocephalus: Status: Acute (5) Diabetes: Status: Acute (6) New onset a-fib: Status: Acute (7) GAIL (acute kidney injury): Status: Acute (8) Protein malnutrition: Status: Acute (9) Cardiomegaly: Status: Acute Plan The patient's acute calculous cholecystitis is been successfully drained percutaneously. He needs cardiac evaluation for risk assessment and will need to be medically optimized prior to considering cholecystectomy. Can advance diet to low-fat as tolerated. Time Spent With Patient Time: Total time managing care of this patient today ____ minutes. Quality Stroke Does the patient have a stroke diagnosis?: No VTE Prior VTE?: No VTE Risk Level:: Medical - moderate - high VTE Device Contraindication: Treatment Not Indicated VTE Drug Contraindication: N/A - Med Ordered
[2022-05-01] MEDS: Potassium Chloride Packet 20 MEQ PACKET 60 MEQ PO ×2 (08:34→11:37)
[2022-05-01] MEDS: Albumin Human 25 % 100 ML IV ×3 (08:35→20:39)
[2022-05-01] MEDS: cefTRIAXone sodium 1 GM in 0.9 % Sodium Chloride 50 ML IV (08:35)
[2022-05-01] MEDS: Amiodarone HCL 200 MG TABLET PO ×2 (08:45→20:38)
--- NOTE | 2022-05-01 10:38 | P.PNCC_ITS ---
Subjective Subjective Date of Service: 05/01/22 Interval History: 77-year-old gentleman with prior history of hydrocephalus status post [employer] shunt, psoriatic arthritis on Enbrel, diabetes mellitus, CKD stage 3, [facility] admitted 04/28/2022 after mechanical fall and inability to get up, found by wellness check. On ER evaluation intravascular volume depletion, also acute cholecystitis with septic shock present on admission. Evaluated by General surgery. Initial poor response to IV fluid, but did not require pressors. Admitted to the intensive care unit overnight. E coli ceftriaxone susceptible bacteremia. Patient was deemed to be stable to be transferred to telemetry ling on 04/29/2022, however he developed AFib with RVR and hypotension requiring initiation of amiodarone and briefly pressor support and thus remained on the intensive care unit service. Now titrated off vasopressor and switched to p.o. amiodarone. Patient is status post percutaneous cholecystostomy on 04/30/2022. No events overnight. Critical Care Time (minutes): 0 Physical Exam Vital Signs: Vital Signs: Last Vital Signs Temp 97.7 F 05/01/22 08:00 Pulse 74 05/01/22 10:00 Resp 19 05/01/22 10:00 BP 118/59 L 05/01/22 10:00 Pulse Ox 89 L 05/01/22 10:00 O2 Del Method 05/01/22 10:00 O2 Flow Rate 6 05/01/22 10:00 FiO2 55 05/01/22 09:00 BMI result Body Mass Index 29.6 Const: General: no acute distress, alert and awake Eyes: Sclerae: sclerae normal EOM: EOMs intact bilaterally Neck: Neck: Yes no lymphadenopathy, Yes trachea midline and Yes supple Resp: Effort & Inspection: normal respiratory effort and no respiratory distress Auscultation: crackles (Diffuse bilateral) Cardio: Rate: regular rate Rhythm: regular rhythm Heart sounds: no gallops, no murmurs and no rubs GI: Inspection: Yes other (Cholecystostomy tube with small amount of bile) Palpation (GI): Soft to palpation and Other GI palpation findings present ( Nontender) Auscultation: normal bowel sounds Extrem: General: No clubbing, No cyanosis and Yes edema (Trace bilateral) Objective Data Labs 05/01/22 05:23 05/01/22 05:23 Labs: Laboratory Results - last 24 hr 04/30/22 04/30/22 04/30/22 11:55 16:59 21:23 WBC RBC Hgb Hct MCV MCH MCHC RDW Plt Count MPV Immature Gran % (Auto) Neut % (Auto) Lymph % (Auto) [place] % (Auto) Eos % (Auto) Baso % (Auto) Lymph # (Auto) [place] # (Auto) Eos # (Auto) Baso # (Auto) Abs Immat Gran (auto) Absolute Neuts (auto) Absolute Nucleated RBC Nucleated RBC % (auto) Smear Tech's Comments VBG pH VBG pCO2 VBG pO2 VBG HCO3 VBG O2 Saturation VBG Base Excess Sodium Potassium Chloride Carbon Dioxide Anion Gap BUN Creatinine Estim Creat Clear Calc Estimated GFR POC Glucose 142 H 176 H 415 H* Random Glucose Calcium Phosphorus Magnesium Total Bilirubin AST ALT Alkaline Phosphatase Total Protein Albumin 05/01/22 05/01/22 05/01/22 05:23 05:23 05:28 WBC 15.4 H RBC 3.82 L Hgb 11.8 L Hct 33.9 L MCV 88.7 MCH 30.9 MCHC 34.8 RDW 13.4 Plt Count 119 L MPV 11.7 Immature Gran % (Auto) 3.2 H Neut % (Auto) 75.2 H Lymph % (Auto) 9.6 L [place] % (Auto) 11.3 H Eos % (Auto) 0.4 Baso % (Auto) 0.3 Lymph # (Auto) 1.5 [place] # (Auto) 1.7 H Eos # (Auto) 0.1 Baso # (Auto) 0.0 Abs Immat Gran (auto) 0.49 H Absolute Neuts (auto) 11.6 H Absolute Nucleated RBC 0.000 Nucleated RBC % (auto) 0.0 Smear Tech's Comments VERIFIED VBG pH 7.50 H VBG pCO2 32 VBG pO2 108 VBG HCO3 26 VBG O2 Saturation 99.0 VBG Base Excess 3.5 Sodium 139 Potassium 3.1 L D Chloride 105 Carbon Dioxide 20 L Anion Gap 17 BUN 26 H Creatinine 1.05 Estim Creat Clear Calc 66.5 Estimated GFR > 60 POC Glucose Random Glucose 105 Calcium 7.5 L D Phosphorus 2.8 Magnesium 1.7 Total Bilirubin 1.5 H AST 33 ALT 48 H Alkaline Phosphatase 211 H Total Protein 4.7 L Albumin 2.5 L 05/01/22 07:13 WBC RBC Hgb Hct MCV MCH MCHC RDW Plt Count MPV Immature Gran % (Auto) Neut % (Auto) Lymph % (Auto) [place] % (Auto) Eos % (Auto) Baso % (Auto) Lymph # (Auto) [place] # (Auto) Eos # (Auto) Baso # (Auto) Abs Immat Gran (auto) Absolute Neuts (auto) Absolute Nucleated RBC Nucleated RBC % (auto) Smear Tech's Comments VBG pH VBG pCO2 VBG pO2 VBG HCO3 VBG O2 Saturation VBG Base Excess Sodium Potassium Chloride Carbon Dioxide Anion Gap BUN Creatinine Estim Creat Clear Calc Estimated GFR POC Glucose 118 H Random Glucose Calcium Phosphorus Magnesium Total Bilirubin AST ALT Alkaline Phosphatase Total Protein Albumin Microbiology Microbiology Results: Microbiology 04/30/22 16:29 Gallbladder Gram Stain - Final 04/30/22 16:29 Gallbladder Routine Culture - Preliminary Culture in progress. 04/30/22 16:29 Gallbladder Anaerobic Culture - Preliminary Culture in progress. 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 Plan: Neuro: No acute issues. Cardiac: Likely underlying congestive heart failure. 2D echocardiogram is essentially normal. Titrated off pressors. New onset AFib with RVR. Will request cardiology evaluation. Switched from IV amiodarone to p.o.. Pulmonary: Acute hypoxic respiratory failure secondary to pulmonary edema secondary to initial resuscitation of sepsis, improving. Continue to titrate supplemental tolerated. Diuretic as blood pressure tolerates. Renal: acute kidney injury secondary to intravascular volume depletion with hypoperfusion and E coli bacteremia. Improving. Non oliguric. Continue to monitor renal indices and urine output. Endo: No acute issues. Underlying diabetes mellitus, continue on subcu insulin. GI: Acute cholecystitis. General surgery service care appreciated. Status post percutaneous cholecystostomy on 04/30/2022. ID: Acute cholecystitis with E coli bacteremia. Ceftriaxone susceptible. Continue on ceftriaxone Heme/Onc: No acute issues. Psych: No acute issues. Miscellaneous: No acute issues. Prophylaxis: Heparin Diet: Regular Patient is stable for transferred to telemetry ling at this time. Quality Stroke Does the patient have a stroke diagnosis?: No VTE Prior VTE?: No VTE Risk Level:: Medical - moderate - high VTE Device Contraindication: Treatment Not Indicated VTE Drug Contraindication: N/A - Med Ordered
[2022-05-01 11:28] LABS: Glucose, Whole Blood 235 mg/dL (60-115)
[2022-05-01] MEDS: Insulin Lispro 100 UNIT/ML 3 ML VIAL SUBCUT ×3 (11:34→20:38)
--- NOTE | 2022-05-01 14:17 | MHC.CDI.CONC ---
CDI Concurrent Query Documentation Clarification: PHYSICIAN'S DOCUMENTATION REQUEST Date of Query: 05/01/22 1417 Patient Name: Villa Kang Admit Date: 04/28/22 Dear Doctor, A review of the medical record indicates additional documentation may be needed. Please review below and update the documentation accordingly. Clinical Indicators: Documentation includes the diagnosis of malnutrition. Additional clinical indicators from the record include: Risk Factors/Clinical Indicators/Treatments HT 5'9 WT 91 kg BMI 29.6kg Per Md progress note 04/30/22: Protein malnutrition ASPEN Criteria* Acute Illness Chronic Illness Clinical Characteristic Non-Severe (2 or more criteria present) Severe (2 or more criteria present) Non-Severe (2 or more criteria present) Severe (2 or more criteria present) Energy Intake <75% for >7 days <=50% for >=5 days <75% for >=1 month <=75% for >=1 month Weight Loss 1 week 1 ? 2% >2% N/A N/A 1 month 5% >5% 5% >5% 3 months 7.5 % >7.5% 7.5% >7.5% 6 months N/A N/A 10% >10% 1 year N/A N/A 20% >20% Body Fat Mild Moderate Mild Severe Muscle Mass Mild Moderate Mild Severe Fluid Accumulation Mild Moderate to Severe Mild Severe Reduced Lamp Cleaner Strength N/A Measurably Reduced N/A Measurably Reduced *[facility] Hospitalist, 2017 If possible, please provide in your progress notes, additional specificity regarding the severity of the malnutrition using the above information: Mild Moderate Severe Other (please specify) Unable to determine Use of terms such as suspected, likely, concern for, or probable (associated with a specific diagnosis that is being evaluated, monitored, or treated as if it exists) are acceptable and can be coded in the inpatient setting, when documented at the time of discharge. Thank you, Yaquelin Mancilla RN Extension: [phone] Please use your independent medical judgment in providing your response. THIS QUERY IS PART OF THE PERMANENT MEDICAL RECORD Provider Response: Moderate Protein-Calorie Malnutrition
[2022-05-01 16:01] LABS: Glucose, Whole Blood 314 mg/dL (60-115)
[2022-05-01 20:22] LABS: Glucose, Whole Blood 193 mg/dL (60-115)
[2022-05-02] VITALS (12 sets, daily range): BP systolic 140–169; BP diastolic 72–85; PULSE 68–102; RESP 15–26; TEMP 36.6–37.1; O2SAT 90–96
[2022-05-02] MEDS: Heparin Sodium,Porcine 5,000 UNIT/ML VIAL 5000 UNIT SUBCUT ×2 (01:52→10:42)
[2022-05-02] MEDS: Albumin Human 25 % 100 ML IV (01:52)
[2022-05-02 07:02] LABS: MANUAL DIFF FLAG NO
[2022-05-02 07:20] LABS: Basophils Absolute Auto 0.1 X10*3/uL (0.0-0.2); Basophils Percent Auto 0.4 % (0-2); Eosinophils Absolute Auto 0.1 X10*3/uL (0.0-0.4); Hematocrit 34.7 % (42.0-52.0); Hemoglobin 11.7 g/dl (14.0-18.0); Imm Gran Abs Auto 0.61 X10*3/uL (0.00-0.03); Imm Gran Pct Auto 4.6 % (0.0-0.4); Lymphocytes Absolute Auto 1.3 X10*3/uL (1.2-4.9); Lymphocytes Percent Auto 9.5 % (20-40); Mean Corpuscular HGB Conc 33.7 g/dl (31.0-36.0); Mean Corpuscular Hemoglobin 30.9 pg (27.0-33.0); Mean Corpuscular Volume 91.6 fL (80.0-98.0); Monocytes Absolute Auto 1.4 X10*3/uL (0.1-1.2); Monocytes Percent Auto 10.7 % (2-11); Neutrophils Absolute Auto 9.9 x10*3/uL (2.0-8.3); Neutrophils Percent Auto 73.8 % (45-73); Platelet Count 125 X10*3/uL (160-400); Red Blood Count 3.79 X10*6/uL (4.60-5.80); Red Cell Distribution Width 13.8 % (11.0-16.0); White Blood Count 13.3 X10*3/uL (4.8-10.8)
[2022-05-02 07:40] LABS: Glucose, Whole Blood 219 mg/dL (60-115)
[2022-05-02 07:43] LABS: Alanine Aminotransferase 30 U/L (0-40); Albumin Level 3.5 g/dL (3.5-5.0); Alkaline Phosphatase 188 U/L (39-117); Anion Gap 14 (12-20); Aspartate Amino Transferase 16 U/L (5-37); Bilirubin Total 1.3 mg/dL (0.0-1.0); Blood Urea Nitrogen 22 mg/dL (9-16); Calcium 8.6 mg/dL (8.4-10.2); Carbon Dioxide 24 mmol/L (22-29); Chloride 105 mmol/L (96-108); Creatinine Clr Calc Pharmacy 72.9; Estimated Glomerular Filt Rate > 60; Glucose Random 219 mg/dL (60-115); Magnesium 1.8 mg/dL (1.6-2.6); Phosphorus 2.7 mg/dL (2.7-4.5); Potassium 3.9 mmol/L (3.3-5.1); Sodium 139 mmol/L (135-145); Total Protein 5.5 g/dL (6.5-8.0)
[2022-05-02] MEDS: Insulin Lispro 100 UNIT/ML 3 ML VIAL SUBCUT ×4 (08:00→22:07)
[2022-05-02] MEDS: Amiodarone HCL 200 MG TABLET PO ×2 (08:00→22:06)
[2022-05-02] MEDS: cefTRIAXone sodium 1 GM in 0.9 % Sodium Chloride 50 ML IV (10:41)
--- NOTE | 2022-05-02 10:53 | P.CONCA_ITS ---
History of Present Illness History of Present Illness Date of Service: 05/02/22 Requesting physician: Amos Garza Consult reason: atrial fibrillation and pre-op evaluation Chief complaint: septic shock Narrative: I was consulted to see Villa in cardiology consultation today for preoperative cardiovascular assessment as well as development of atrial fibrillation during this hospitalization. Patient was admitted with a fall and being found on the floor and was hypotensive with what appears to be septic shock related to E coli bacteremia related to acute cholecystitis. Patient was also markedly volume depleted. Had lactic acidosis on admission. Subsequently treated with IV fluids and antibiotics and made improvement and was planned to be transferred to the floor on April 29 but developed atrial fibrillation hypertension that required IV amiodarone and vasopressors. Patient and converted to sinus rhythm and a blood pressures remained controlled. Been switch to p.o. amiodarone and tolerating this well. Today appears to be short of breath. He denies any chest pain. He underwent percutaneous cholecystostomy for acute cholecystitis and possible plan to undergo cholecystectomy under general anesthesia. He has no prior cardiac history of coronary artery disease or myocardial infarction. Has longstanding history of hypertension as well as diabetes as well as normal pressure hydrocephalus with shunt. He has no prior history of atrial fibrillation or congestive heart failure. Patient has prior history of chronic kidney disease. He also is on chronic immunosuppression for psoriatic arthritis. Currently remains in sinus rhythm and hemodynamically stable. His echocardiogram shows normal structure of the heart. Review of Systems Constitutional: Constitutional: Reports lethargy and Reports weakness Eyes: Eyes: Reports no additional eye complaints Cardiovascular: Cardiovascular: Denies chest pain, Denies leg edema, Denies lightheadedness, Denies Loss of Consciousness, Denies palpitations and Reports dyspnea Respiratory: Respiratory: Reports dyspnea Gastrointestinal: Gastrointestinal: Reports no additional gastrointestinal complaints Integumentary/Breasts: Skin/Breast: Reports system reviewed and no additional complaints, except as docu Neurologic: Reports weakness Psychiatric: Psychiatric: Reports anxiety Endocrine: Endocrine: Denies palpitations Hematologic/Lymphatic: Hematologic/Lymphatic: Reports no additional hematologi c/lymphatic complaints [facility] Past Medical History Medical History ADHD Diabetes Diabetic retinopathy Encounter for screening for other viral diseases Hypertension Normal pressure hydrocephalus Obstructive sleep apnea Psoriasis Restless leg syndrome Screening-pulmonary TB Functional capacity: uses cane/walker Social History Social History Household Members: None Household Members Other:: lives alone Housing: House Do you presently have visiting nurse or other home services: No Alcohol intake: former Patient Tobacco Use Status: Never used Tobacco Smoked in Last 30 Days: No e-Cigarette/Vaping Use: Never Used Frequency of e-Cigarette/Vaping Use: never Use of substances other than those prescribed or required for medical reasons: No Currently Displaying Signs/Symptoms of Drug Intoxication Withdrawal: No Have you been hit, kicked, punched, or otherwise hurt by someone within the past year? If so, by whom?: No Do you feel safe in your current relationship?: No Current Relationship Is there a partner from a previous relationship who is making you feel unsafe now?: No Are you made to feel afraid or neglected: No Spiritual Healthcare Practices: regularly goes to [facility] Practices: N/A Cultural Healthcare Practices: Used topical marijuana cream for arthritic pain in hands, but not recently. Denies other marijuana use. Advance Directives: No Advance Directives Information Provided: No Do you have thoughts of harming others: None Do you have a plan to hurt others: No Plan Recently lost weight without trying: No Eating poorly because of decreased appetite: No Nutrition Risks: No Nutritional Risk Poor oral hygiene: No (dentures) service: No Current occupational status: retired Current occupation: [employer] Allergies Allergy/AdvReac Type Severity Reaction Status Date / Time famotidine [From Pepcid] Allergy Intermediate Hallucinati Verified 02/08/22 09:26 ons Active Medications: Current Medications Acetaminophen (Acetaminophen 325 Mg Tablet) 650 mg PO Q4H PRN PRN Reason: fever Last Admin: 04/30/22 14:15 Dose: 650 mg Amiodarone HCl (Amiodarone Hcl 200 Mg Tablet) 200 mg PO BID COUNTS INCLUDE 234 BEDS AT THE [facility] Last Admin: 05/02/22 08:00 Dose: 200 mg Heparin Sodium (Porcine) (Heparin Sodium,Porcine 5,000 Unit/Ml Vial) 5,000 unit SUBCUT Q8H COUNTS INCLUDE 234 BEDS AT THE [facility] Last Admin: 05/02/22 10:42 Dose: 5,000 unit Ceftriaxone Sodium 1 gm/ (Sodium Chloride) 50 mls @ 100 mls/hr IV Q24H COUNTS INCLUDE 234 BEDS AT THE [facility] Last Admin: 05/02/22 10:41 Dose: 100 mls/hr Insulin Human Lispro (Insulin Lispro 100 Unit/Ml 3 Ml Vial) 0 unit [facility]; Protocol Last Admin: 05/02/22 08:00 Dose: 4 unit Home Medications Medication Instructions Recorded Confirmed Last Taken Type amlodipine 10 mg tablet 10 mg PO DAILY 11/22/21 04/28/22 04/25/22 History atorvastatin 20 mg tablet 20 mg PO DAILY 11/22/21 04/28/22 04/25/22 History cholecalciferol (vitamin D3) 125 125 mcg PO DAILY 11/22/21 04/28/22 04/25/22 History mcg (5,000 unit) capsule folic acid 1 mg tablet 1 mg PO DAILY 11/22/21 04/28/22 04/25/22 History furosemide 40 mg tablet 40 mg PO DAILY 11/22/21 04/28/22 04/25/22 History metformin 500 mg tablet 1,000 mg PO BID 11/22/21 04/28/22 04/25/22 History metoprolol tartrate 50 mg tablet 50 mg PO BID 11/22/21 04/28/22 04/25/22 History allopurinol 100 mg tablet 100 mg PO DAILY 04/28/22 04/28/22 04/25/22 History glipizide 10 mg tablet, extended 1 tab PO BID 04/28/22 04/28/22 04/25/22 History release 24 hr insulin glargine 100 unit/mL (3 40 unit subcut BEDTIME 04/28/22 04/28/22 04/25/22 History mL) subcutaneous pen (Lantus Solostar U-100 Insulin) Physical Exam Vital Signs: Vital Signs: Last Vital Signs Temp 98.2 F 05/02/22 07:25 Pulse 68 05/02/22 07:25 Resp 26 H 05/02/22 07:25 BP 169/80 H 05/02/22 07:25 Pulse Ox 96 05/02/22 07:25 O2 Del Method 05/02/22 07:25 O2 Flow Rate 40 05/02/22 07:25 FiO2 55 05/01/22 09:00 BMI result Body Mass Index 29.6 Const: General: cooperative, comfortable, alert, awake, in distress mild and respiratory and tired appearing Nutritional Appearance: overweight Orientation/consciousness: patient oriented x3 HEENT: Head: Yes normocephalic and Yes atraumatic Neck: Neck: Yes trachea midline, Yes supple and Yes no JVD Resp: Effort & Inspection: normal respiratory effort Auscultation: no rales, no wheezes and diminished lung sounds Cardio: Jugular venous distension: no JVD Palpation: normal PMI Rate: regular rate Rhythm: regular rhythm Heart sounds: S1 normal heart sound present, S2 normal heart sound present, no click, no gallops, no murmurs and no rubs GI: Auscultation: normal bowel sounds Skin: General skin exam: no rashes or lesions noted and ecchymosis Neuro: General: patient oriented x3 and no focal motor deficits Extrem: General: Yes no clubbing, cyanosis or edema Objective Labs and Meds 05/02/22 06:45 05/02/22 06:45 Lab results: Laboratory Results - last 24 hr 05/01/22 05/01/22 05/01/22 11:25 15:58 20:18 WBC RBC Hgb Hct MCV MCH MCHC RDW Plt Count MPV Immature Gran % (Auto) Neut % (Auto) Lymph % (Auto) [place] % (Auto) Eos % (Auto) Baso % (Auto) Lymph # (Auto) [place] # (Auto) Eos # (Auto) Baso # (Auto) Abs Immat Gran (auto) Absolute Neuts (auto) Absolute Nucleated RBC Nucleated RBC % (auto) Sodium Potassium Chloride Carbon Dioxide Anion Gap BUN Creatinine Estim Creat Clear Calc Estimated GFR POC Glucose 235 H 314 H 193 H Random Glucose Calcium Phosphorus Magnesium Total Bilirubin AST ALT Alkaline Phosphatase Total Protein Albumin 05/02/22 05/02/22 05/02/22 06:45 06:45 07:26 WBC 13.3 H RBC 3.79 L Hgb 11.7 L Hct 34.7 L MCV 91.6 MCH 30.9 MCHC 33.7 RDW 13.8 Plt Count 125 L MPV 12.0 Immature Gran % (Auto) 4.6 H Neut % (Auto) 73.8 H Lymph % (Auto) 9.5 L [place] % (Auto) 10.7 Eos % (Auto) 1.0 Baso % (Auto) 0.4 Lymph # (Auto) 1.3 [place] # (Auto) 1.4 H Eos # (Auto) 0.1 Baso # (Auto) 0.1 Abs Immat Gran (auto) 0.61 H Absolute Neuts (auto) 9.9 H Absolute Nucleated RBC 0.000 Nucleated RBC % (auto) 0.0 Sodium 139 Potassium 3.9 D Chloride 105 Carbon Dioxide 24 Anion Gap 14 BUN 22 H Creatinine 0.96 Estim Creat Clear Calc 72.9 Estimated GFR > 60 POC Glucose 219 H Random Glucose 219 H Calcium 8.6 D Phosphorus 2.7 Magnesium 1.8 Total Bilirubin 1.3 H AST 16 ALT 30 Alkaline Phosphatase 188 H Total Protein 5.5 L Albumin 3.5 Imaging Radiologist's impression: Impressions Chest X-Ray 05/02/22 06:35 IMPRESSION: * Small bilateral pleural effusions with accompanying airspace opacities, more pronounced on the left * Diffuse bronchial wall thickening. Assessment and Plan (1) Paroxysmal atrial fibrillation: Status: Acute Patient developed atrial fibrillation most likely related to acute medical/domenico gical illness with underlying risk factors of diabetes and hypertension. This is not unusual in patient with acute medical illness and usually is self- limiting. Agree with amiodarone use for now and probably as outpatient for about a month or so. Will require outpatient workup in form of a Holter monitor to follow-up that there is no recurrent atrial fibrillation and if none then will probably discontinue amiodarone as outpatient in 4-6 weeks time. Does not require oral anticoagulation as this was medical illness related atrial fibrillation self-terminated within 24 hours. (2) Preoperative cardiovascular examination: Status: Acute Preoperative cardiovascular risk stratification prior to acute cholecystectomy, intermediate risk surgery. Patient went through acute medical illness and clinically appears to be low short of breath related to probably pulmonary issues, see below. There are no obvious cardiac contraindication for surgery. His atrial fibrillation is currently suppressed with amiodarone therapy and will continue that in the perioperative time. Continue full disclosure cardiac monitoring. He has no prior cardiac history and has no recent evidence of acute coronary syndrome or congestive heart failure and from cardiac perspective is optimized to undergo surgery with low to intermediate risk for perioperative cardiovascular morbidity mortality. Close attention to hemodynamics during surgery should be pursued. (3) SOB (shortness of breath): Status: Acute Patient appears clinically short of breath and this appears to be more likely related to pulmonary parenchymal process probably related to atelectasis. Consider extra imaging such as noncontrast CT to further evaluate for this. Also participate in incentive spirometry and possible chest physical therapy. Will sign of the case at this point time and follow up with him as an outpatient. Time Spent With Patient Time: Total time managing care of this patient today ____ minutes. Procedures Date of Service Date of Service: 05/02/22
[2022-05-02 11:41] LABS: Glucose, Whole Blood 275 mg/dL (60-115)
--- NOTE | 2022-05-02 13:17 | P.PNGS_ITS ---
Subjective Subjective Date of Service: 05/02/22 Interval history: The patient is seen with his daughter, Belen, at the bedside. He reports a restless night and is tired. His appetite is down he denies any chest pain or shortness of breath. He was previously tolerating his diet but notes he is just not hungry today when I saw him around 08:00 Physical Exam Vital Signs: Vital Signs: Last Vital Signs Temp 98.2 F 05/02/22 11:26 Pulse 76 05/02/22 11:26 Resp 24 H 05/02/22 11:26 BP 160/72 H 05/02/22 11:26 Pulse Ox 92 05/02/22 11:26 O2 Del Method 05/02/22 11:26 O2 Flow Rate 6 05/02/22 11:26 FiO2 55 05/01/22 09:00 BMI result Body Mass Index 29.6 On exam he is nontoxic He is in no respiratory distress Abdomen is unchanged with no peritoneal sign. Local right upper quadrant tenderness is noted and the bulb drainage has grown Gram-negative rods which is not surprising Objective Data Active Medications Acetaminophen (Acetaminophen 325 Mg Tablet) 650 mg PO Q4H PRN PRN Reason: fever Last Admin: 04/30/22 14:15 Dose: 650 mg Documented By: ANNETTA-KENTONFA Amiodarone HCl (Amiodarone Hcl 200 Mg Tablet) 200 mg PO BID [facility] Last Admin: 05/02/22 08:00 Dose: 200 mg Documented By: PAUL Heparin Sodium (Porcine) (Heparin Sodium,Porcine 5,000 Unit/Ml Vial) 5,000 unit SUBCUT Q8H [facility] Last Admin: 05/02/22 10:42 Dose: 5,000 unit Documented By: PAUL Ceftriaxone Sodium 1 gm/ (Sodium Chloride) 50 mls @ 100 mls/hr IV Q24H [facility] Last Infusion: 05/02/22 11:48 Dose: 0 mls/hr Documented By: PAUL Insulin Human Lispro (Insulin Lispro 100 Unit/Ml 3 Ml Vial) 0 unit SUBCUT QIDACHS [facility]; Protocol Last Admin: 05/02/22 13:08 Dose: 6 unit Documented By: PAUL Labs 05/02/22 06:45 05/02/22 06:45 Labs: Laboratory Results - last 24 hr 05/01/22 05/01/2223 15:58 20:18 06:45 MCV 91.6 MCH 30.9 MCHC 33.7 RDW 13.8 Plt Count 125 L MPV 12.0 Immature Gran % (Auto) 4.6 H Neut % (Auto) 73.8 H Lymph % (Auto) 9.5 L [place] % (Auto) 10.7 Eos % (Auto) 1.0 Baso % (Auto) 0.4 Lymph # (Auto) 1.3 [place] # (Auto) 1.4 H Eos # (Auto) 0.1 Baso # (Auto) 0.1 Abs Immat Gran (auto) 0.61 H Absolute Neuts (auto) 9.9 H Absolute Nucleated RBC 0.000 Nucleated RBC % (auto) 0.0 Anion Gap Estim Creat Clear Calc Estimated GFR POC Glucose 314 H 193 H Random Glucose Calcium Phosphorus Magnesium Total Bilirubin AST ALT Alkaline Phosphatase Total Protein Albumin 05/02/22 05/02/22 05/02/22 06:45 07:26 11:28 MCV MCH MCHC RDW Plt Count MPV Immature Gran % (Auto) Neut % (Auto) Lymph % (Auto) [place] % (Auto) Eos % (Auto) Baso % (Auto) Lymph # (Auto) [place] # (Auto) Eos # (Auto) Baso # (Auto) Abs Immat Gran (auto) Absolute Neuts (auto) Absolute Nucleated RBC Nucleated RBC % (auto) Anion Gap 14 Estim Creat Clear Calc 72.9 Estimated GFR > 60 POC Glucose 219 H 275 H Random Glucose 219 H Calcium 8.6 D Phosphorus 2.7 Magnesium 1.8 Total Bilirubin 1.3 H AST 16 ALT 30 Alkaline Phosphatase 188 H Total Protein 5.5 L Albumin 3.5 Microbiology Microbiology Results: Microbiology 04/30/22 16:29 Gram Stain - Final Gallbladder Routine Culture - Preliminary Gram negative maria c Gram negative maria c#2 Anaerobic Culture - Preliminary Culture in progress. Procedures Date of Service Date of Service: 05/02/22 Progress Note: A&P Assessment and plan (1) Paroxysmal atrial fibrillation: Status: Acute (2) E coli bacteremia: Status: Acute (3) Acute cholecystitis: Status: Acute (4) 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, senior living, current use: Status: Acute (5) Bacteremia: Status: Acute (6) Obstructive sleep apnea: Status: Acute (7) Normal pressure hydrocephalus: Status: Acute (8) Diabetes: Status: Acute (9) Cardiomegaly: Status: Acute Plan I again explained to the patient and his daughter that his comorbidities and current protein malnutrition and poorly controlled type 2 diabetes make an a significant risk. While his echocardiogram was reviewed and did not have any significant findings, a cardiac evaluation for coronary artery disease was not performed yet. His gram-negative bacteremia is likely secondary to his acute calculous cholecystitis an interval cholecystectomy will be recommended after his medical comorbidities including protein malnutrition and poorly controlled diabetes are addressed. The option of having his care at [facility] where his other physicians are located was again discussed. A suspected will be at least a month, possibly longer depending on the patient's progress before defini tive cholecystectomy should be performed. Time Spent With Patient Time: Total time managing care of this patient today ____ minutes. Quality Stroke Does the patient have a stroke diagnosis?: No VTE Prior VTE?: No VTE Risk Level:: Medical - moderate - high VTE Device Contraindication: Treatment Not Indicated VTE Drug Contraindication: N/A - Med Ordered
--- NOTE | 2022-05-02 14:30 | P.PNIM_ITS ---
Subjective Subjective Date of Service: 05/02/22 Interval History: Seen and evaluated this morning Fails mildly better but overall still requiring oxygen supplement O2 sat dropped to mid 80s earlier in the morning Denies any fever, chills or chest pain No other overnight events Review of Systems Review of Systems: Yes all other systems are reviewed and are negative Physical Exam Vital Signs: Vital Signs: Last Vital Signs Temp 98.2 F 05/02/22 11:26 Pulse 76 05/02/22 11:26 Resp 24 H 05/02/22 11:26 BP 160/72 H 05/02/22 11:26 Pulse Ox 92 05/02/22 11:26 O2 Del Method 05/02/22 11:26 O2 Flow Rate 6 05/02/22 11:26 FiO2 55 05/01/22 09:00 BMI result Body Mass Index 29.6 Const: Other: Constitutional : Awake, interactive, not in distress Neck : Normal inspection, Supple Cardiovascular : RRR, no JVP, no lower extremity edema Respiratory : Fair bilateral air entry, decreased bilateral air entry, on oxygen supplement Gastrointestinal: soft, lax, Normal bowel sounds, Non tender, cholecystostomy tube in place Skin : Warm, Dry Neurological : Alert & oriented x3, No focal deficit Objective Data Active Medications Acetaminophen (Acetaminophen 325 Mg Tablet) 650 mg PO Q4H PRN PRN Reason: fever Last Admin: 04/30/22 14:15 Dose: 650 mg Documented By: LAITH Amiodarone HCl (Amiodarone Hcl 200 Mg Tablet) 200 mg PO BID [facility] Last Admin: 05/02/22 08:00 Dose: 200 mg Documented By: PAUL Heparin Sodium (Porcine) (Heparin Sodium,Porcine 5,000 Unit/Ml Vial) 5,000 unit SUBCUT Q8H [facility] Last Admin: 05/02/22 10:42 Dose: 5,000 unit Documented By: PAUL Ceftriaxone Sodium 1 gm/ (Sodium Chloride) 50 mls @ 100 mls/hr IV Q24H [facility] Last Infusion: 05/02/22 11:48 Dose: 0 mls/hr Documented By: PAUL Insulin Human Lispro (Insulin Lispro 100 Unit/Ml 3 Ml Vial) 0 unit SUBCUT QIDACHS [facility]; Protocol Last Admin: 05/02/22 13:08 Dose: 6 unit Documented By: HO.FRANCIM Labs 05/02/22 06:45 05/02/22 06:45 Labs: Laboratory Results - last 24 hr 05/01/22 05/01/22 05/02/22 15:58 20:18 06:45 MCV 91.6 MCH 30.9 MCHC 33.7 RDW 13.8 Plt Count 125 L MPV 12.0 Immature Gran % (Auto) 4.6 H Neut % (Auto) 73.8 H Lymph % (Auto) 9.5 L [place] % (Auto) 10.7 Eos % (Auto) 1.0 Baso % (Auto) 0.4 Lymph # (Auto) 1.3 [place] # (Auto) 1.4 H Eos # (Auto) 0.1 Baso # (Auto) 0.1 Abs Immat Gran (auto) 0.61 H Absolute Neuts (auto) 9.9 H Absolute Nucleated RBC 0.000 Nucleated RBC % (auto) 0.0 Anion Gap Estim Creat Clear Calc Estimated GFR POC Glucose 314 H 193 H Random Glucose Calcium Phosphorus Magnesium Total Bilirubin AST ALT Alkaline Phosphatase Total Protein Albumin 05/02/22 05/02/22 05/02/22 06:45 07:26 11:28 MCV MCH MCHC RDW Plt Count MPV Immature Gran % (Auto) Neut % (Auto) Lymph % (Auto) [place] % (Auto) Eos % (Auto) Baso % (Auto) Lymph # (Auto) [place] # (Auto) Eos # (Auto) Baso # (Auto) Abs Immat Gran (auto) Absolute Neuts (auto) Absolute Nucleated RBC Nucleated RBC % (auto) Anion Gap 14 Estim Creat Clear Calc 72.9 Estimated GFR > 60 POC Glucose 219 H 275 H Random Glucose 219 H Calcium 8.6 D Phosphorus 2.7 Magnesium 1.8 Total Bilirubin 1.3 H AST 16 ALT 30 Alkaline Phosphatase 188 H Total Protein 5.5 L Albumin 3.5 Microbiology Microbiology Results: Microbiology 04/30/22 16:29 Gram Stain - Final Gallbladder Routine Culture - Preliminary Gram negative maria c Gram negative maria c#2 Anaerobic Culture - Preliminary Culture in progress. Assessment and Plan (1) SOB (shortness of breath): Status: Acute (2) Paroxysmal atrial fibrillation: Status: Acute (3) E coli bacteremia: Status: Acute Plan 77 years old male with PMH of AFib, diabetes, JASE, CKD 3, psoriasis among others who presents to the hospital after sustaining a fall. Found to have evidence of acute cholecystitis with septic shock on admission requiring ICU care. Acute hypoxic respiratory failure Seems secondary to atelectasis VS pleural effusion Start incentive spirometry and Mucinex Start Lasix Consider CT scan and chest physical therapy if no improvement Start physical therapy Septic shock, resolved E coli bacteremia secondary to acute cholecystitis Blood cultures grew E coli Continue IV ceftriaxone ASO Acute cholecystitis Status post percutaneous cholecystostomy on 04/30/2022 Surgery team following, plan cholecystectomy in 1 month or so Paroxysmal AFib Continue amiodarone 200 mg b.i.d. Continue metoprolol Cardiology input appreciated, will need Holter monitoring outpatient, does not qualify for anticoagulation Preoperative cardiovascular examination Intermediate risk surgery per cardiology team, no obvious cardiac contraindication for surgery Type 2 diabetes Hold oral medications SSI, Lantus Diabetic diet DVT PPX Lovenox Patient will need overnight hospital stay pending resolution of hypoxia and safe discharge plan. Time Spent With Patient Time: Total time managing care of this patient today ____ minutes. Quality Stroke Does the patient have a stroke diagnosis?: No VTE Prior VTE?: No VTE Risk Level:: Medical - moderate - high VTE Device Contraindication: Treatment Not Indicated VTE Drug Contraindication: N/A - Med Ordered
[2022-05-02] MEDS: Furosemide 40 MG/4 ML VIAL IVPUSH (15:48)
--- NOTE | 2022-05-02 16:14 | MHC.CM.PN ---
Male 77 ICU [place] DP home no services. His dtr will provide transportation home at discharge.
[2022-05-02 16:31] LABS: Glucose, Whole Blood 271 mg/dL (60-115)
[2022-05-02] MEDS: Metoprolol Tartrate 50 MG TABLET PO ×2 (17:37→22:05)
[2022-05-02] MEDS: Magnesium Sulfate/H2O 2 GM/50 ML PIGGYBACK IV (17:38)
[2022-05-02 20:48] LABS: Glucose, Whole Blood 273 mg/dL (60-115)
[2022-05-02] MEDS: Insulin Glargine,Hum.rec.anlog 100 UNIT/ML 10 ML VIAL 20 UNIT SUBCUT (22:06)
[2022-05-02] MEDS: Apixaban 5 MG TABLET PO (22:06)
[2022-05-03] VITALS (9 sets, daily range): BP systolic 140–166; BP diastolic 60–79; PULSE 60–84; RESP 14–21; TEMP 36.1–36.6; O2SAT 88–99; BMI 28.2
[2022-05-03 07:03] LABS: Hematocrit 37.9 % (42.0-52.0); Hemoglobin 12.6 g/dl (14.0-18.0); Mean Corpuscular HGB Conc 33.2 g/dl (31.0-36.0); Mean Corpuscular Hemoglobin 30.1 pg (27.0-33.0); Mean Corpuscular Volume 90.7 fL (80.0-98.0); Mean Platelet Volume 11.6 fL (9.4-12.4); Platelet Count 161 X10*3/uL (160-400); Red Blood Count 4.18 X10*6/uL (4.60-5.80); Red Cell Distribution Width 13.8 % (11.0-16.0); White Blood Count 13.5 X10*3/uL (4.8-10.8)
[2022-05-03 07:20] LABS: Anion Gap 16 (12-20); Blood Urea Nitrogen 20 mg/dL (9-16); Calcium 8.7 mg/dL (8.4-10.2); Carbon Dioxide 24 mmol/L (22-29); Chloride 105 mmol/L (96-108); Creatinine Clr Calc Pharmacy 71.4; Estimated Glomerular Filt Rate > 60; Glucose Random 199 mg/dL (60-115); Potassium 4.1 mmol/L (3.3-5.1); Sodium 141 mmol/L (135-145)
[2022-05-03 08:02] LABS: Glucose, Whole Blood 194 mg/dL (60-115)
[2022-05-03] MEDS: amLODIPine Besylate 10 MG TABLET PO (09:27)
[2022-05-03] MEDS: Insulin Lispro 100 UNIT/ML 3 ML VIAL SUBCUT ×4 (09:27→20:39)
[2022-05-03] MEDS: Folic Acid 1 MG TABLET PO (09:27)
[2022-05-03] MEDS: Apixaban 5 MG TABLET PO ×2 (09:27→20:38)
[2022-05-03] MEDS: Amiodarone HCL 200 MG TABLET PO ×2 (09:27→20:38)
[2022-05-03] MEDS: Metoprolol Tartrate 50 MG TABLET PO ×2 (09:27→20:38)
[2022-05-03] MEDS: cefTRIAXone sodium 1 GM in 0.9 % Sodium Chloride 50 ML IV (09:27)
[2022-05-03] MEDS: allopurinoL 100 MG TABLET PO (09:27)
[2022-05-03 11:37] LABS: Glucose, Whole Blood 226 mg/dL (60-115)
--- NOTE | 2022-05-03 12:02 | PM.PNGS ---
Subjective Subjective Date of Service: 05/03/22 Patient reports: feels better and tolerating a regular diet Interval history: I met with the patient and his other daughter. He requested that I brief her on his comorbidities in the decision making. Explained to both of them that his poorly controlled diabetes and malnutrition as well as a known cardiac issue in the setting of an enlarged heart made emergent surgery potentially risk and potentially fatal. Given this, decision to place a percutaneous drain and, in a more controlled setting with his diabetes and malnutrition addressed in 1-2 months and following cardiac optimization, any operation would be safer. They both seemed understand the questions seemed to be answered. Physical Exam Vital Signs: Vital Signs: Last Vital Signs Temp 97.1 F 05/03/22 07:21 Pulse 63 05/03/22 07:21 Resp 20 05/03/22 07:21 BP 145/76 H 05/03/22 07:21 Pulse Ox 90 L 05/03/22 07:21 O2 Del Method 05/03/22 07:21 O2 Flow Rate 5 05/03/22 07:21 FiO2 55 05/01/22 09:00 BMI result Body Mass Index 28.2 Patient is anicteric Abdomen is obese and soft with less tenderness Gallbladder drains is clear, bile-tinged and non purulent Objective Data Active Medications Acetaminophen (Acetaminophen 325 Mg Tablet) 650 mg PO Q4H PRN PRN Reason: fever Last Admin: 04/30/22 14:15 Dose: 650 mg Documented By: LAITH Allopurinol (Allopurinol 100 Mg Tablet) 100 mg PO DAILY [facility] Last Admin: 05/03/22 09:27 Dose: 100 mg Documented By: PAUL Amiodarone HCl (Amiodarone Hcl 200 Mg Tablet) 200 mg PO BID [facility] Last Admin: 05/03/22 09:27 Dose: 200 mg Documented By: PAUL Amlodipine Besylate (Amlodipine Besylate 10 Mg Tablet) 10 mg PO DAILY [facility]; Protocol Last Admin: 05/03/22 09:27 Dose: 10 mg Documented By: PAUL Apixaban (Apixaban 5 Mg Tablet) 5 mg PO BID [facility] Last Admin: 05/03/22 09:27 Dose: 5 mg Documented By: PAUL Folic Acid (Folic Acid 1 Mg Tablet) 1 mg PO DAILY [facility] Last Admin: 05/03/22 09:27 Dose: 1 mg Documented By: PAUL Ceftriaxone Sodium 1 gm/ (Sodium Chloride) 50 mls @ 100 mls/hr IV Q24H [facility] Last Infusion: 05/03/22 10:40 Dose: 0 mls/hr Documented By: PAUL Insulin Glargine (Insulin Glargine,Hum.Rec.Anlog 100 Unit/Ml 10 Ml Vial) 20 unit SUBCUT BEDTIME [facility] Last Admin: 05/02/22 22:06 Dose: 20 unit Documented By: FELIBERTO Insulin Human Lispro (Insulin Lispro 100 Unit/Ml 3 Ml Vial) 0 unit SUBCUT QIDACHS [facility]; Protocol Last Admin: 05/03/22 09:27 Dose: 2 unit Documented By: PAUL Metoprolol Tartrate (Metoprolol Tartrate 50 Mg Tablet) 50 mg PO BID [facility]; Protocol Last Admin: 05/03/22 09:27 Dose: 50 mg Documented By: PAUL Labs 05/03/22 06:23 05/03/22 06:23 Labs: Laboratory Results - last 24 hr 05/02/22 05/02/22 05/03/22 16:19 20:27 06:23 MCV 90.7 MCH 30.1 MCHC 33.2 RDW 13.8 Plt Count 161 D MPV 11.6 Absolute Nucleated RBC 0.000 Nucleated RBC % (auto) 0.0 Anion Gap Estim Creat Clear Calc Estimated GFR POC Glucose 271 H 273 H Random Glucose Calcium 05/03/22 05/03/22 05/03/22 06:23 07:25 11:18 MCV MCH MCHC RDW Plt Count MPV Absolute Nucleated RBC Nucleated RBC % (auto) Anion Gap 16 Estim Creat Clear Calc 71.4 Estimated GFR > 60 POC Glucose 194 H 226 H Random Glucose 199 H Calcium 8.7 Microbiology Microbiology Results: Microbiology 04/30/22 16:29 Gram Stain - Final Gallbladder Routine Culture - Preliminary Escherichia coli Klebsiella oxytoca Anaerobic Culture - Preliminary Culture in progress. Procedures Date of Service Date of Service: 05/03/22 Progress Note: A&P Assessment and plan (1) Acute cholecystitis: Status: Acute (2) E coli bacteremia: Status: Acute (3) Protein malnutrition: Status: Acute (4) GAIL (acute kidney injury): Status: Acute (5) Obstructive sleep apnea: Status: Acute (6) Normal pressure hydrocephalus: Status: Acute (7) Diabetes: Status: Acute (8) Cardiomegaly: Status: Acute (9) 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, supervisor long goods, current use: Status: Acute Plan Explained to the patient and the daughter who was here today the treatment course given his comorbidities and unknowns at the time of presentation. Percutaneous cholecystostomy and was safest option given his poorly controlled diabetes, malnutrition, possible need for an open operation and cardiomegaly from unknown reasons. I also explained again about the need to medically optimize the patient regarding his protein malnutrition and poorly controlled type 2 diabetes; interval cholecystectomy may still require an open operation and they seemed understand. The other option of pulling the drain and 1-2 months was discussed. The patient needs to decide whether he wants to do have his follow-up here with me at [place] and coordinate his care with his doctors at [facility] or just transfer his care to his doctors at [facility]. Either way, I again explained that this would not be an operation that would occur this hospitalization and may take 1-2 months, possibly longer to optimize him. Time Spent With Patient Time: Total time managing care of this patient today ____ minutes. Quality Stroke Does the patient have a stroke diagnosis?: No VTE Prior VTE?: No VTE Risk Level:: Medical - moderate - high VTE Device Contraindication: Treatment Not Indicated VTE Drug Contraindication: N/A - Med Ordered
--- NOTE | 2022-05-03 15:01 | HO.PM.IMPN ---
Subjective Subjective Date of Service: 05/03/22 Interval History: Seen and evaluated this morning Feels much better today, sitting up in chair having breakfast Would to sat still dropping to 80s but requiring less oxygen No abdominal pain Denies any fever, chills or chest pain No other overnight events Review of Systems Review of Systems: Yes all other systems are reviewed and are negative Physical Exam Vital Signs: Vital Signs: Last Vital Signs Temp 97.8 F 05/03/22 12:00 Pulse 84 05/03/22 13:23 Resp 19 05/03/22 12:00 BP 140/78 H 05/03/22 12:00 Pulse Ox 88 L 05/03/22 13:23 O2 Del Method 05/03/22 12:00 O2 Flow Rate 5 05/03/22 12:00 FiO2 55 05/01/22 09:00 BMI result Body Mass Index 28.2 Const: Other: Constitutional : Awake, interactive, not in distress Neck : Normal inspection, Supple Cardiovascular : RRR, no JVP, no lower extremity edema Respiratory : Fair bilateral air entry, decreased bilateral air entry, on oxygen supplement Gastrointestinal: soft, lax, Normal bowel sounds, Non tender, cholecystostomy tube in place Skin : Warm, Dry Neurological : Alert & oriented x3, No focal deficit Objective Data Active Medications Acetaminophen (Acetaminophen 325 Mg Tablet) 650 mg PO Q4H PRN PRN Reason: fever Last Admin: 04/30/22 14:15 Dose: 650 mg Documented By: LAITH Allopurinol (Allopurinol 100 Mg Tablet) 100 mg PO DAILY [facility] Last Admin: 05/03/22 09:27 Dose: 100 mg Documented By: PAUL Amiodarone HCl (Amiodarone Hcl 200 Mg Tablet) 200 mg PO BID [facility] Last Admin: 05/03/22 09:27 Dose: 200 mg Documented By: PAUL Amlodipine Besylate (Amlodipine Besylate 10 Mg Tablet) 10 mg PO DAILY [facility]; Protocol Last Admin: 05/03/22 09:27 Dose: 10 mg Documented By: PAUL Apixaban (Apixaban 5 Mg Tablet) 5 mg PO BID [facility] Last Admin: 05/03/22 09:27 Dose: 5 mg Documented By: PAUL Folic Acid (Folic Acid 1 Mg Tablet) 1 mg PO DAILY [facility] Last Admin: 02/09/23 09:27 Dose: 1 mg Documented By: PAUL Ceftriaxone Sodium 1 gm/ (Sodium Chloride) 50 mls @ 100 mls/hr IV Q24H [facility] Last Infusion: 05/03/22 10:40 Dose: 0 mls/hr Documented By: PAUL Insulin Glargine (Insulin Glargine,Hum.Rec.Anlog 100 Unit/Ml 10 Ml Vial) 20 unit SUBCUT BEDTIME [facility] Last Admin: 05/02/22 22:06 Dose: 20 unit Documented By: FELIBERTO Insulin Human Lispro (Insulin Lispro 100 Unit/Ml 3 Ml Vial) 0 unit SUBCUT QIDACHS [facility]; Protocol Last Admin: 05/03/22 12:41 Dose: 4 unit Documented By: PAUL Metoprolol Tartrate (Metoprolol Tartrate 50 Mg Tablet) 50 mg PO BID [facility]; Protocol Last Admin: 05/03/22 09:27 Dose: 50 mg Documented By: PAUL Labs 05/03/22 06:23 05/03/22 06:23 Labs: Laboratory Results - last 24 hr 05/02/22 05/02/22 05/03/22 16:19 20:27 06:23 MCV 90.7 MCH 30.1 MCHC 33.2 RDW 13.8 Plt Count 161 D MPV 11.6 Absolute Nucleated RBC 0.000 Nucleated RBC % (auto) 0.0 Anion Gap Estim Creat Clear Calc Estimated GFR POC Glucose 271 H 273 H Random Glucose Calcium 05/03/22 05/03/22 05/03/22 06:23 07:25 11:18 MCV MCH MCHC RDW Plt Count MPV Absolute Nucleated RBC Nucleated RBC % (auto) Anion Gap 16 Estim Creat Clear Calc 71.4 Estimated GFR > 60 POC Glucose 194 H 226 H Random Glucose 199 H Calcium 8.7 Microbiology Microbiology Results: Microbiology 04/30/22 16:29 Gram Stain - Final Gallbladder Routine Culture - Preliminary Escherichia coli Klebsiella oxytoca Anaerobic Culture - Preliminary Culture in progress. Assessment and Plan (1) SOB (shortness of breath): Status: Acute (2) Paroxysmal atrial fibrillation: Status: Acute (3) E coli bacteremia: Status: Acute (4) Acute respiratory failure with hypoxia: Status: Acute Plan 77 years old male with PMH of AFib, diabetes, JASE, CKD 3, psoriasis among others who presents to the hospital after sustaining a fall. Found to have evidence of acute cholecystitis with septic shock on admission requiring ICU care. Acute hypoxic respiratory failure Seems secondary to atelectasis VS pleural effusion Continue incentive spirometry and Mucinex Continue Lasix Continue physical therapy Septic shock, resolved E coli bacteremia secondary to acute cholecystitis Blood cultures grew E coli Continue IV ceftriaxone AZO Acute cholecystitis Status post percutaneous cholecystostomy on 04/30/2022 Surgery team following, plan cholecystectomy in 1 month or so after improving nutrition status and better control of diabetes Paroxysmal AFib Continue amiodarone 200 mg b.i.d. Continue metoprolol Cardiology input appreciated, will need Holter monitoring outpatient, does not qualify for anticoagulation Preoperative cardiovascular examination Intermediate risk surgery per cardiology team, no obvious cardiac contraindication for surgery Type 2 diabetes with hyperglycemia Hold oral medications SSI, Lantus Diabetic diet DVT PPX Lovenox Patient will need overnight hospital stay pending resolution of hypoxia and safe discharge plan. Time Spent With Patient Time: Total time managing care of this patient today ____ minutes. Quality Stroke Does the patient have a stroke diagnosis?: No VTE Prior VTE?: No VTE Risk Level:: Medical - moderate - high VTE Device Contraindication: Treatment Not Indicated VTE Drug Contraindication: N/A - Med Ordered
[2022-05-03 16:03] LABS: Glucose, Whole Blood 249 mg/dL (60-115)
[2022-05-03] MEDS: Furosemide 40 MG/4 ML VIAL IVPUSH (16:16)
[2022-05-03 20:22] LABS: Glucose, Whole Blood 226 mg/dL (60-115)
[2022-05-03] MEDS: Insulin Glargine,Hum.rec.anlog 100 UNIT/ML 10 ML VIAL 20 UNIT SUBCUT (20:38)
[2022-05-04] VITALS (8 sets, daily range): BP systolic 122–176; BP diastolic 57–69; PULSE 51–71; RESP 14–22; TEMP 36.1–37.2; O2SAT 92–98
[2022-05-04 07:45] LABS: Glucose, Whole Blood 240 mg/dL (60-115)
[2022-05-04] MEDS: Insulin Lispro 100 UNIT/ML 3 ML VIAL SUBCUT ×4 (08:49→21:04)
[2022-05-04] MEDS: allopurinoL 100 MG TABLET PO (08:49)
[2022-05-04] MEDS: Amiodarone HCL 200 MG TABLET PO ×2 (08:49→21:03)
[2022-05-04] MEDS: Metoprolol Tartrate 50 MG TABLET PO ×2 (08:49→21:03)
[2022-05-04] MEDS: amLODIPine Besylate 10 MG TABLET PO (08:49)
[2022-05-04] MEDS: Folic Acid 1 MG TABLET PO (08:50)
[2022-05-04] MEDS: Furosemide 40 MG/4 ML VIAL IVPUSH (08:50)
[2022-05-04] MEDS: cefTRIAXone sodium 1 GM in 0.9 % Sodium Chloride 50 ML IV (08:50)
[2022-05-04] MEDS: Apixaban 5 MG TABLET PO ×2 (08:50→21:03)
--- NOTE | 2022-05-04 09:00 | P.PNGS_ITS ---
Subjective Subjective Date of Service: 05/04/22 Interval history: The patient is currently sleeping, his daughter Gris is in the room and I met with her. She voiced concerns over him apparently sleeping as there trying to wean his O2. She also notes concerns regarding his [employer] shunt since somnolence was 1 of his symptoms regarding adjusting his shunt. Which he seems to be tolerating his diet but has appetite is somewhat decreased. Physical Exam Vital Signs: Vital Signs: Last Vital Signs Temp 97.4 F 05/04/22 07:31 Pulse 69 05/04/22 07:31 Resp 18 05/04/22 07:31 BP 151/68 H 05/04/22 07:31 Pulse Ox 94 05/04/22 07:31 O2 Del Method 05/04/22 07:31 O2 Flow Rate 5 05/04/22 07:31 FiO2 55 05/01/22 09:00 BMI result Body Mass Index 28.2 I did not wake the patient as he is sleeping Objective Data Active Medications Acetaminophen (Acetaminophen 325 Mg Tablet) 650 mg PO Q4H PRN PRN Reason: fever Last Admin: 04/30/22 14:15 Dose: 650 mg Documented By: LAITH Allopurinol (Allopurinol 100 Mg Tablet) 100 mg PO DAILY [facility] Last Admin: 05/03/22 09:27 Dose: 100 mg Documented By: PAUL Amiodarone HCl (Amiodarone Hcl 200 Mg Tablet) 200 mg PO BID [facility] Last Admin: 05/03/22 20:38 Dose: 200 mg Documented By: FELIBERTO Amlodipine Besylate (Amlodipine Besylate 10 Mg Tablet) 10 mg PO DAILY [facility]; Protocol Last Admin: 05/03/22 09:27 Dose: 10 mg Documented By: PAUL Apixaban (Apixaban 5 Mg Tablet) 5 mg PO BID [facility] Last Admin: 05/03/22 20:38 Dose: 5 mg Documented By: FELIBERTO Folic Acid (Folic Acid 1 Mg Tablet) 1 mg PO DAILY [facility] Last Admin: 05/03/22 09:27 Dose: 1 mg Documented By: PAUL Furosemide (Furosemide 40 Mg/4 Ml Vial) 40 mg IVPUSH DAILY [facility]; Protocol Last Admin: 05/03/22 16:16 Dose: 40 mg Documented By: PAUL Ceftriaxone Sodium 1 gm/ (Sodium Chloride) 50 mls @ 100 mls/hr IV Q24H [facility] Last Infusion: 05/03/22 10:40 Dose: 0 mls/hr Documented By: PAUL Insulin Glargine (Insulin Glargine,Hum.Rec.Anlog 100 Unit/Ml 10 Ml Vial) 20 unit SUBCUT BEDTIME [facility] Last Admin: 05/03/22 20:38 Dose: 20 unit Documented By: FELIBERTO Insulin Human Lispro (Insulin Lispro 100 Unit/Ml 3 Ml Vial) 0 unit SUBCUT QIDACHS [facility]; Protocol Last Admin: 05/03/22 20:39 Dose: 4 unit Documented By: FELIBERTO Metoprolol Tartrate (Metoprolol Tartrate 50 Mg Tablet) 50 mg PO BID [facility]; Protocol Last Admin: 05/03/22 20:38 Dose: 50 mg Documented By: FELIBERTO Labs 05/03/22 06:23 05/03/22 06:23 Labs: Laboratory Results - last 24 hr 05/03/22 05/03/22 05/03/22 11:18 15:44 20:19 POC Glucose 226 H 249 H 226 H 05/04/22 07:42 POC Glucose 240 H Microbiology Microbiology Results: Microbiology 04/30/22 16:29 Gram Stain - Final Gallbladder Routine Culture - Final Escherichia coli Klebsiella oxytoca Anaerobic Culture - Preliminary Culture in progress. 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 Continue low-fat diet as tolerated. Continue antibiotics and present management Time Spent With Patient Time: Total time managing care of this patient today ____ minutes. Quality Stroke Does the patient have a stroke diagnosis?: No VTE Prior VTE?: No VTE Risk Level:: Medical - moderate - high VTE Device Contraindication: Treatment Not Indicated VTE Drug Contraindication: N/A - Med Ordered
[2022-05-04] MEDS: predniSONE 20 MG TABLET 40 MG PO (12:21)
[2022-05-04] MEDS: metOLazone 5 MG TABLET PO (12:22)
[2022-05-04 12:33] LABS: Glucose, Whole Blood 339 mg/dL (60-115)
--- NOTE | 2022-05-04 14:57 | MHC.CM.PN ---
Patient has not been accepted at any of the Acute Rehabs; CM met with Patient who admits he does not feel that he could tolerate the 3 hours/day that the Acute Rehabs require.Patient is agreeable to a SNF search and CM will follow. MD is aware of the change in plans.
--- NOTE | 2022-05-04 15:34 | HO.PM.IMPN ---
Subjective Subjective Date of Service: 05/04/22 Interval History: Seen and evaluated this morning Patient improving on a daily basis, sitting up in his chair and pain ambulating more Weaning down oxygen as tolerated Denies any fever, chills or chest pain No other overnight events Review of Systems Review of Systems: Yes all other systems are reviewed and are negative Physical Exam Vital Signs: Vital Signs: Last Vital Signs Temp 99.0 F 05/04/22 11:33 Pulse 62 05/04/22 11:33 Resp 17 05/04/22 11:33 BP 176/69 H 05/04/22 11:33 Pulse Ox 94 05/04/22 11:33 O2 Del Method 05/04/22 11:33 O2 Flow Rate 5 05/04/22 07:31 FiO2 55 05/01/22 09:00 BMI result Body Mass Index 28.2 Const: Other: Constitutional : Awake, interactive, not in distress Neck : Normal inspection, Supple Cardiovascular : RRR, no JVP, no lower extremity edema Respiratory : Fair bilateral air entry, decreased bilateral air entry, on oxygen supplement Gastrointestinal: soft, lax, Normal bowel sounds, Non tender, cholecystostomy tube in place Skin : Warm, Dry Neurological : Alert & oriented x3, No focal deficit Objective Data Active Medications Acetaminophen (Acetaminophen 325 Mg Tablet) 650 mg PO Q4H PRN PRN Reason: fever Last Admin: 04/30/22 14:15 Dose: 650 mg Documented By: ANNETTA-SOFFA Allopurinol (Allopurinol 100 Mg Tablet) 100 mg PO DAILY [facility] Last Admin: 05/04/22 08:49 Dose: 100 mg Documented By: ANNETTA-SOFFA Amiodarone HCl (Amiodarone Hcl 200 Mg Tablet) 200 mg PO BID [facility] Last Admin: 05/04/22 08:49 Dose: 200 mg Documented By: ANNETTA-SOFFA Amlodipine Besylate (Amlodipine Besylate 10 Mg Tablet) 10 mg PO DAILY [facility]; Protocol Last Admin: 05/04/22 08:49 Dose: 10 mg Documented By: ANNETTA-SOFFA Apixaban (Apixaban 5 Mg Tablet) 5 mg PO BID [facility] Last Admin: 05/04/22 08:50 Dose: 5 mg Documented By: ANNETTA-SOFFA Doxycycline Monohydrate (Doxycycline Monohydrate 100 Mg Capsule) 100 mg PO Q12H [facility] Folic Acid (Folic Acid 1 Mg Tablet) 1 mg PO DAILY [facility] Last Admin: 05/04/22 08:50 Dose: 1 mg Documented By: ANNETTA-SOFPENG Furosemide (Furosemide 40 Mg/4 Ml Vial) 40 mg IVPUSH DAILY [facility]; Protocol Last Admin: 05/04/22 08:50 Dose: 40 mg Documented By: ANNETTA-KENTONFA Ceftriaxone Sodium 1 gm/ (Sodium Chloride) 50 mls @ 100 mls/hr IV Q24H [facility] Last Infusion: 05/04/22 09:29 Dose: 0 mls/hr Documented By: ANNETTA-LUCILLE Insulin Glargine (Insulin Glargine,Hum.Rec.Anlog 100 Unit/Ml 10 Ml Vial) 20 unit SUBCUT BEDTIME [facility] Last Admin: 05/03/22 20:38 Dose: 20 unit Documented By: BRIGC Insulin Human Lispro (Insulin Lispro 100 Unit/Ml 3 Ml Vial) 0 unit SUBCUT QIDACHS [facility]; Protocol Last Admin: 05/04/22 12:24 Dose: 8 unit Documented By: ANNETTA-SOFPENG Metoprolol Tartrate (Metoprolol Tartrate 50 Mg Tablet) 50 mg PO BID [facility]; Protocol Last Admin: 05/04/22 08:49 Dose: 50 mg Documented By: ANNETTA-LUCILLE Prednisone (Prednisone 20 Mg Tablet) 40 mg PO DAILY [facility] Last Admin: 05/04/22 12:21 Dose: 40 mg Documented By: ANNETTA-LUCILLE Labs 05/03/22 06:23 05/03/22 06:23 Labs: Laboratory Results - last 24 hr 05/03/22 05/03/22 05/04/22 15:44 20:19 07:42 POC Glucose 249 H 226 H 240 H 05/04/22 12:16 POC Glucose 339 H Microbiology Microbiology Results: Microbiology 04/30/22 16:29 Gram Stain - Final Gallbladder Routine Culture - Final Escherichia coli Klebsiella oxytoca Anaerobic Culture - Preliminary Culture in progress. Assessment and Plan (1) Acute respiratory failure with hypoxia: Status: Acute (2) E coli bacteremia: Status: Acute Plan 77 years old male with PMH of AFib, diabetes, JASE, CKD 3, psoriasis among others who presents to the hospital after sustaining a fall. Found to have evidence of acute cholecystitis with septic shock on admission requiring ICU care. Acute hypoxic respiratory failure Seems secondary to atelectasis VS pleural effusion Repeated CXR showed mild improvement of effusion but persistent infiltrates Add doxycycline for antibiotics Continue incentive spirometry and Mucinex Continue IV Lasix with addition of metolazone Continue physical therapy Septic shock, resolved E coli bacteremia secondary to acute cholecystitis Blood cultures grew E coli Continue IV ceftriaxone to finish total of 2 weeks by May 14 Acute cholecystitis Status post percutaneous cholecystostomy on 04/30/2022 Surgery team following, plan cholecystectomy in 1 month or so after improving nutrition status and better control of diabetes Paroxysmal AFib Continue amiodarone 200 mg b.i.d. Continue metoprolol Cardiology input appreciated, will need Holter monitoring outpatient, does not qualify for anticoagulation Preoperative cardiovascular examination Intermediate risk surgery per cardiology team, no obvious cardiac contraindication for surgery Type 2 diabetes with hyperglycemia Hold oral medications SSI, Lantus Diabetic diet DVT PPX Lovenox Patient will need overnight hospital stay pending resolution of hypoxia and safe discharge plan. Time Spent With Patient Time: Total time managing care of this patient today ____ minutes. Quality Stroke Does the patient have a stroke diagnosis?: No VTE Prior VTE?: No VTE Risk Level:: Medical - moderate - high VTE Device Contraindication: Treatment Not Indicated VTE Drug Contraindication: N/A - Med Ordered
--- NOTE | 2022-05-04 15:47 | MHC.CM.PN ---
Patient has been accepted at [facility] for tomorrow. [facility] will attempt auth from [facility] vs dc tomorrow under waiver. CM will follow.
[2022-05-04 17:13] LABS: Glucose, Whole Blood 287 mg/dL (60-115)
[2022-05-04] MEDS: Doxycycline Monohydrate 100 MG CAPSULE PO (17:35)
[2022-05-04 20:12] LABS: Glucose, Whole Blood 436 mg/dL (60-115)
[2022-05-04] MEDS: Insulin Glargine,Hum.rec.anlog 100 UNIT/ML 10 ML VIAL 20 UNIT SUBCUT (21:03)
[2022-05-04] MEDS: Insulin Lispro 100 UNIT/ML 3 ML VIAL 10 UNIT SUBCUT (21:04)
[2022-05-05] VITALS (8 sets, daily range): BP systolic 127–142; BP diastolic 61–68; PULSE 54–72; RESP 16–20; TEMP 36.2–37.1; O2SAT 91–96; BMI 28.2
[2022-05-05] MEDS: Doxycycline Monohydrate 100 MG CAPSULE PO ×2 (05:32→17:01)
[2022-05-05 07:46] LABS: Glucose, Whole Blood 316 mg/dL (60-115)
[2022-05-05] MEDS: Insulin Lispro 100 UNIT/ML 3 ML VIAL SUBCUT ×4 (09:04→20:25)
[2022-05-05] MEDS: Apixaban 5 MG TABLET PO ×2 (09:05→20:24)
[2022-05-05] MEDS: predniSONE 20 MG TABLET 40 MG PO (09:05)
[2022-05-05] MEDS: amLODIPine Besylate 10 MG TABLET PO (09:05)
[2022-05-05] MEDS: Folic Acid 1 MG TABLET PO (09:06)
[2022-05-05] MEDS: Amiodarone HCL 200 MG TABLET PO ×2 (09:06→20:24)
[2022-05-05] MEDS: allopurinoL 100 MG TABLET PO (09:06)
[2022-05-05] MEDS: Metoprolol Tartrate 50 MG TABLET PO (09:06)
[2022-05-05] MEDS: cefTRIAXone sodium 1 GM in 0.9 % Sodium Chloride 50 ML IV (09:09)
[2022-05-05 11:18] LABS: Glucose, Whole Blood 449 mg/dL (60-115)
[2022-05-05] MEDS: Furosemide 40 MG/4 ML VIAL IVPUSH (11:23)
--- NOTE | 2022-05-05 14:07 | P.PNIM_ITS ---
Subjective Subjective Date of Service: 05/05/22 Interval History: Seen and evaluated this morning Feels much better, weaned down oxygen this morning More physically active Denies any fever, chills or chest pain No other overnight events Review of Systems Review of Systems: Yes all other systems are reviewed and are negative Physical Exam Vital Signs: Vital Signs: Last Vital Signs Temp 98.2 F 05/05/22 10:58 Pulse 68 05/05/22 10:58 Resp 20 05/05/22 10:58 BP 133/61 05/05/22 10:58 Pulse Ox 94 05/05/22 10:58 O2 Del Method 05/05/22 10:58 O2 Flow Rate 30 05/05/22 00:00 FiO2 55 05/01/22 09:00 BMI result Body Mass Index 28.2 Const: Other: Constitutional : Awake, interactive, not in distress Neck : Normal inspection, Supple Cardiovascular : RRR, no JVP, no lower extremity edema Respiratory : Fair bilateral air entry, decreased bilateral air entry, on RA Gastrointestinal: soft, lax, Normal bowel sounds, Non tender, cholecystostomy tube in place Skin : Warm, Dry Neurological : Alert & oriented x3, No focal deficit Objective Data Active Medications Acetaminophen (Acetaminophen 325 Mg Tablet) 650 mg PO Q4H PRN PRN Reason: fever Last Admin: 04/30/22 14:15 Dose: 650 mg Documented By: LAITH Allopurinol (Allopurinol 100 Mg Tablet) 100 mg PO DAILY COUNTS [facility]CLUDE 234 BEDS AT THE [facility] Last Admin: 05/05/22 09:06 Dose: 100 mg Documented By: TRUE Amiodarone HCl (Amiodarone Hcl 200 Mg Tablet) 200 mg PO BID COUNTS INCLUDE 234 BEDS AT THE [facility] Last Admin: 05/05/22 09:06 Dose: 200 mg Documented By: TRUE Amlodipine Besylate (Amlodipine Besylate 10 Mg Tablet) 10 mg PO DAILY COUNTS INCLUDE 234 BEDS AT THE [facility]; Protocol Last Admin: 05/05/22 09:05 Dose: 10 mg Documented By: TRUE Apixaban (Apixaban 5 Mg Tablet) 5 mg PO BID COUNTS INCLUDE 234 BEDS AT THE [facility] Last Admin: 05/05/22 09:05 Dose: 5 mg Documented By: TRUE Doxycycline Monohydrate (Doxycycline Monohydrate 100 Mg Capsule) 100 mg PO Q12H COUNTS INCLUDE 234 BEDS AT THE [facility] Last Admin: 05/05/22 05:32 Dose: 100 mg Documented By: MARIVEL Folic Acid (Folic Acid 1 Mg Tablet) 1 mg PO DAILY COUNTS INCLUDE 234 BEDS AT THE [facility] Last Admin: 05/05/22 09:06 Dose: 1 mg Documented By: TRUE Furosemide (Furosemide 40 Mg/4 Ml Vial) 40 mg IVPUSH DAILY COUNTS INCLUDE 234 BEDS AT THE [facility]; Protocol Last Admin: 05/05/22 11:23 Dose: 40 mg Documented By: MAMIE Ceftriaxone Sodium 1 gm/ (Sodium Chloride) 50 mls @ 100 mls/hr IV Q24H COUNTS INCLUDE 234 BEDS AT THE [facility] Last Infusion: 05/05/22 09:21 Dose: 0 mls/hr Documented By: TRUE Insulin Glargine (Insulin Glargine,Hum.Rec.Anlog 100 Unit/Ml 10 Ml Vial) 40 unit SUBCUT BEDTIME COUNTS INCLUDE 234 BEDS AT THE [facility] Insulin Human Lispro (Insulin Lispro 100 Unit/Ml 3 Ml Vial) 0 unit SUBCUT QIDACHS COUNTS INCLUDE 234 BEDS AT THE [facility]; Protocol Last Admin: 05/05/22 11:28 Dose: 10 unit Documented By: MAMIE Metoprolol Tartrate (Metoprolol Tartrate 50 Mg Tablet) 50 mg PO BID COUNTS INCLUDE 234 BEDS AT THE [facility]; Protocol Last Admin: 05/05/22 09:06 Dose: 50 mg Documented By: TRUE Prednisone (Prednisone 20 Mg Tablet) 20 mg PO DAILY COUNTS INCLUDE 234 BEDS AT THE [facility] Labs 05/03/22 06:23 05/03/22 06:23 Labs: Laboratory Results - last 24 hr 05/04/22 05/04/22 05/05/22 17:02 19:58 07:16 POC Glucose 287 H 436 H* 316 H 05/05/22 10:59 POC Glucose 449 H* Microbiology Microbiology Results: Microbiology 04/30/22 16:29 Gram Stain - Final Gallbladder Routine Culture - Final Escherichia coli Klebsiella oxytoca Anaerobic Culture - Preliminary Culture in progress. Assessment and Plan (1) Acute respiratory failure with hypoxia: Status: Acute (2) E coli bacteremia: Status: Acute (3) Paroxysmal atrial fibrillation: Status: Acute Plan 77 years old male with PMH of AFib, diabetes, JASE, CKD 3, psoriasis among others who presents to the hospital after sustaining a fall. Found to have evidence of acute cholecystitis with septic shock on admission requiring ICU care. Acute hypoxic respiratory failure Seems secondary to atelectasis VS pleural effusion Repeated CXR showed mild improvement of effusion but persistent infiltrates continue doxycycline for antibiotics Continue incentive spirometry and Mucinex Continue IV Lasix Continue physical therapy weaned off O2 Septic shock, resolved E coli bacteremia secondary to acute cholecystitis Blood cultures grew E coli Continue IV ceftriaxone to finish total of 2 weeks by May 14 Acute cholecystitis Status post percutaneous cholecystostomy on 04/30/2022 Surgery team following, plan cholecystectomy in 1 month or so after improving nutrition status and better control of diabetes Paroxysmal AFib Continue amiodarone 200 mg b.i.d. Continue metoprolol Cardiology input appreciated, will need Holter monitoring outpatient, does not qualify for anticoagulation Preoperative cardiovascular examination Intermediate risk surgery per cardiology team, no obvious cardiac contraindication for surgery Type 2 diabetes with hyperglycemia Hold oral medications SSI, Lantus Diabetic diet DVT PPX Lovenox Patient will need overnight hospital stay pending safe discharge plan. Time Spent With Patient Time: Total time managing care of this patient today ____ minutes. Quality Stroke Does the patient have a stroke diagnosis?: No VTE Prior VTE?: No VTE Risk Level:: Medical - moderate - high VTE Device Contraindication: Treatment Not Indicated VTE Drug Contraindication: N/A - Med Ordered
--- NOTE | 2022-05-05 14:25 | PM.PNGS ---
Subjective Subjective Date of Service: 05/05/22 Interval history: eating well no nausea or pain Physical Exam Vital Signs: Vital Signs: Last Vital Signs Temp 98.2 F 05/05/22 10:58 Pulse 68 05/05/22 10:58 Resp 20 05/05/22 10:58 BP 133/61 05/05/22 10:58 Pulse Ox 94 05/05/22 10:58 O2 Del Method 05/05/22 10:58 O2 Flow Rate 30 05/05/22 00:00 FiO2 55 05/01/22 09:00 BMI result Body Mass Index 28.2 GI: Other: abdomen soft and benign - drain with good amount of hydrops type fluid - pale green Objective Data Active Medications Acetaminophen (Acetaminophen 325 Mg Tablet) 650 mg PO Q4H PRN PRN Reason: fever Last Admin: 04/30/22 14:15 Dose: 650 mg Documented By: LAITH Allopurinol (Allopurinol 100 Mg Tablet) 100 mg PO DAILY [facility] Last Admin: 05/05/22 09:06 Dose: 100 mg Documented By: TREU Amiodarone HCl (Amiodarone Hcl 200 Mg Tablet) 200 mg PO BID [facility] Last Admin: 05/05/22 09:06 Dose: 200 mg Documented By: TRUE Amlodipine Besylate (Amlodipine Besylate 10 Mg Tablet) 10 mg PO DAILY [facility]; Protocol Last Admin: 05/05/22 09:05 Dose: 10 mg Documented By: TRUE Apixaban (Apixaban 5 Mg Tablet) 5 mg PO BID [facility] Last Admin: 05/05/22 09:05 Dose: 5 mg Documented By: TRUE Doxycycline Monohydrate (Doxycycline Monohydrate 100 Mg Capsule) 100 mg PO Q12H [facility] Last Admin: 05/05/22 05:32 Dose: 100 mg Documented By: MARIVEL Folic Acid (Folic Acid 1 Mg Tablet) 1 mg PO DAILY [facility] Last Admin: 05/05/22 09:06 Dose: 1 mg Documented By: TRUE Furosemide (Furosemide 40 Mg/4 Ml Vial) 40 mg IVPUSH DAILY [facility]; Protocol Last Admin: 05/05/22 11:23 Dose: 40 mg Documented By: MAMIE Ceftriaxone Sodium 1 gm/ (Sodium Chloride) 50 mls @ 100 mls/hr IV Q24H [facility] Last Infusion: 05/05/22 09:21 Dose: 0 mls/hr Documented By: TRUE Insulin Glargine (Insulin Glargine,Hum.Rec.Anlog 100 Unit/Ml 10 Ml Vial) 40 unit SUBCUT BEDTIME [facility] Insulin Human Lispro (Insulin Lispro 100 Unit/Ml 3 Ml Vial) 0 unit SUBCUT QIDACHS [facility]; Protocol Last Admin: 05/05/22 11:28 Dose: 10 unit Documented By: MAMIE Metoprolol Tartrate (Metoprolol Tartrate 50 Mg Tablet) 50 mg PO BID [facility]; Protocol Last Admin: 05/05/22 09:06 Dose: 50 mg Documented By: TRUE Prednisone (Prednisone 20 Mg Tablet) 20 mg PO DAILY [facility] Labs 05/03/22 06:23 05/03/22 06:23 Labs: Laboratory Results - last 24 hr 05/04/22 05/04/22 05/05/22 17:02 19:58 07:16 POC Glucose 287 H 436 H* 316 H 05/05/22 10:59 POC Glucose 449 H* Microbiology Microbiology Results: Microbiology 04/30/22 16:29 Gram Stain - Final Gallbladder Routine Culture - Final Escherichia coli Klebsiella oxytoca Anaerobic Culture - Preliminary Culture in progress. Procedures Date of Service Date of Service: 05/05/22 Progress Note: A&P Assessment and plan (1) Acute cholecystitis: Status: Acute Assessment and Plan: pt doing well with beth tube in place and tolerating diet ] plan to dc home with tube in place and self care and fu with dr Fontanez in office in 1-2 weeks. Time Spent With Patient Time: Total time managing care of this patient today ____ minutes. Quality Stroke Does the patient have a stroke diagnosis?: No VTE Prior VTE?: No VTE Risk Level:: Medical - moderate - high VTE Device Contraindication: Treatment Not Indicated VTE Drug Contraindication: N/A - Med Ordered
[2022-05-05] MEDS: Insulin Lispro 100 UNIT/ML 3 ML VIAL 10 UNIT SUBCUT ×2 (15:14→20:24)
[2022-05-05 15:59] LABS: Glucose, Whole Blood 321 mg/dL (60-115)
[2022-05-05 19:52] LABS: Glucose, Whole Blood 428 mg/dL (60-115)
[2022-05-05] MEDS: Insulin Glargine,Hum.rec.anlog 100 UNIT/ML 10 ML VIAL 40 UNIT SUBCUT (20:25)
[2022-05-05] MEDS: guaiFENesin DM 100/10/5 ML 5 ML SYRUP PO (21:55)
[2022-05-06] VITALS (8 sets, daily range): BP systolic 124–165; BP diastolic 62–75; PULSE 57–86; RESP 18–20; TEMP 36.3–37.1; O2SAT 93–95; BMI 28.1
[2022-05-06] MEDS: guaiFENesin DM 100/10/5 ML 5 ML SYRUP PO ×4 (04:05→21:41)
[2022-05-06] MEDS: Doxycycline Monohydrate 100 MG CAPSULE PO ×2 (05:15→17:20)
[2022-05-06 07:49] LABS: Glucose, Whole Blood 257 mg/dL (60-115)
[2022-05-06] MEDS: Amiodarone HCL 200 MG TABLET PO ×2 (08:57→21:41)
[2022-05-06] MEDS: Apixaban 5 MG TABLET PO ×2 (08:58→21:41)
[2022-05-06] MEDS: cefTRIAXone sodium 1 GM in 0.9 % Sodium Chloride 50 ML IV (08:58)
[2022-05-06] MEDS: allopurinoL 100 MG TABLET PO (08:58)
[2022-05-06] MEDS: amLODIPine Besylate 10 MG TABLET PO (08:58)
[2022-05-06] MEDS: predniSONE 20 MG TABLET PO (08:58)
[2022-05-06] MEDS: Metoprolol Tartrate 50 MG TABLET PO ×2 (08:58→21:41)
[2022-05-06] MEDS: Folic Acid 1 MG TABLET PO (08:58)
[2022-05-06] MEDS: Insulin Lispro 100 UNIT/ML 3 ML VIAL SUBCUT ×4 (08:59→21:41)
[2022-05-06] MEDS: Furosemide 40 MG/4 ML VIAL IVPUSH (08:59)
[2022-05-06] MEDS: Insulin Glargine,Hum.rec.anlog 100 UNIT/ML 10 ML VIAL 20 UNIT SUBCUT (09:00)
[2022-05-06 11:16] LABS: Glucose, Whole Blood 403 mg/dL (60-115)
[2022-05-06] MEDS: Insulin Lispro 100 UNIT/ML 3 ML VIAL 10 UNIT SUBCUT (12:58)
[2022-05-06 16:01] LABS: Glucose, Whole Blood 286 mg/dL (60-115)
[2022-05-06 20:15] LABS: Glucose, Whole Blood 305 mg/dL (60-115)
[2022-05-06] MEDS: Insulin Glargine,Hum.rec.anlog 100 UNIT/ML 10 ML VIAL 40 UNIT SUBCUT (21:42)
[2022-05-07] VITALS (10 sets, daily range): BP systolic 142–148; BP diastolic 63–70; PULSE 59–89; RESP 15–20; TEMP 36.6–37.2; O2SAT 93–97; BMI 27.6
[2022-05-07] MEDS: guaiFENesin DM 100/10/5 ML 5 ML SYRUP PO (03:27)
[2022-05-07] MEDS: Doxycycline Monohydrate 100 MG CAPSULE PO ×2 (05:56→18:02)
[2022-05-07 08:02] LABS: Glucose, Whole Blood 101 mg/dL (60-115)
--- NOTE | 2022-05-07 08:17 | P.PNGS_ITS ---
Subjective Subjective Date of Service: 05/07/22 Patient reports: feels better and tolerating a regular diet Interval history: The patient continues to tolerate a low-fat diet. He discussed his gallbladder issues and comorbidities with his daughters, Belen (DPOAH) & Gris, and he relayed the message that they would prefer to keep me as his surgeon since I k now his history. I explained that we will need to coordinate care with his PCP and other physicians at [facility]. The need to improve his diabetes, cardiopulmonary status and malnutrition was reviewed. His questions seemed to be satisfactorily answered. Physical Exam Vital Signs: Vital Signs: Last Vital Signs Temp 97.8 F 05/07/22 08:00 Pulse 59 05/07/22 08:00 Resp 17 05/07/22 08:00 BP 148/67 H 05/07/22 08:00 Pulse Ox 97 05/07/22 08:00 O2 Del Method 05/07/22 08:00 O2 Flow Rate 30 05/05/22 00:00 FiO2 55 05/01/22 09:00 BMI result Body Mass Index 27.6 The patient is in no respiratory distress His sclera remain anicteric as is his face Abdomen is obese and soft with less tenderness. The cholecystostomy tube is putting out rosita bile unchanged over the weekend from the hydrops, slightly bile tinged drainage last week. Objective Data Active Medications Acetaminophen (Acetaminophen 325 Mg Tablet) 650 mg PO Q4H PRN PRN Reason: fever Last Admin: 04/30/22 14:15 Dose: 650 mg Documented By: LAITH Allopurinol (Allopurinol 100 Mg Tablet) 100 mg PO DAILY [facility] Last Admin: 05/06/22 08:58 Dose: 100 mg Documented By: TRUE Amiodarone HCl (Amiodarone Hcl 200 Mg Tablet) 200 mg PO BID [facility] Last Admin: 05/06/22 21:41 Dose: 200 mg Documented By: MARIVEL Amlodipine Besylate (Amlodipine Besylate 10 Mg Tablet) 10 mg PO DAILY [facility]; Protocol Last Admin: 05/06/22 08:58 Dose: 10 mg Documented By: TRUE Apixaban (Apixaban 5 Mg Tablet) 5 mg PO BID [facility] Last Admin: 05/06/22 21:41 Dose: 5 mg Documented By: MARIVEL Doxycycline Monohydrate (Doxycycline Monohydrate 100 Mg Capsule) 100 mg PO Q12H [facility] Last Admin: 05/07/22 05:56 Dose: 100 mg Documented By: MARIVEL Folic Acid (Folic Acid 1 Mg Tablet) 1 mg PO DAILY [facility] Last Admin: 05/06/22 08:58 Dose: 1 mg Documented By: TRUE Furosemide (Furosemide 40 Mg/4 Ml Vial) 40 mg IVPUSH DAILY [facility]; Protocol Last Admin: 05/06/22 08:59 Dose: 40 mg Documented By: TRUE Guaifenesin/Dextromethorphan (Guaifenesin Dm 100/10/5 Ml 5 Ml Syrup) 5 ml PO Q4H PRN PRN Reason: cough Last Admin: 05/07/22 03:27 Dose: 5 ml Documented By: MARIVEL Ceftriaxone Sodium 1 gm/ (Sodium Chloride) 50 mls @ 100 mls/hr IV Q24H [facility] Last Infusion: 05/06/22 12:11 Dose: 0 mls/hr Documented By: TRUE Insulin Glargine (Insulin Glargine,Hum.Rec.Anlog 100 Unit/Ml 10 Ml Vial) 40 unit SUBCUT BEDTIME [facility] Last Admin: 05/06/22 21:42 Dose: 40 unit Documented By: MARIVEL Insulin Human Lispro (Insulin Lispro 100 Unit/Ml 3 Ml Vial) 0 unit SUBCUT QIDACHS [facility]; Protocol Last Admin: 05/07/22 08:07 Dose: Not Given Documented By: LESLIE Non-Admin Reason: No Insulin Coverage Metoprolol Tartrate (Metoprolol Tartrate 50 Mg Tablet) 50 mg PO BID [facility]; Protocol Last Admin: 05/06/22 21:41 Dose: 50 mg Documented By: MARIVEL Prednisone (Prednisone 20 Mg Tablet) 20 mg PO DAILY [facility] Last Admin: 05/06/22 08:58 Dose: 20 mg Documented By: TRUE Labs 05/03/22 06:23 05/03/22 06:23 Labs: Laboratory Results - last 24 hr 05/06/22 05/06/22 05/06/22 11:09 15:57 20:11 POC Glucose 403 H* 286 H 305 H 05/07/22 07:55 POC Glucose 101 Microbiology Microbiology Results: Microbiology 04/30/22 16:29 Gram Stain - Final Gallbladder Routine Culture - Final Escherichia coli Klebsiella oxytoca Anaerobic Culture - Preliminary Culture in progress. 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 This led to E coli bacteremia. His comorbidities and need for cardiac clearance require temporizing his presenting problem of acute calculous cholecystitis with the drain and the plan to optimize him medically and improve his poorly controlled type 2 diabetes, protein mal nutrition, investigate his cardiomegaly and obtain cardiac clearance for an assessment for cholecystectomy was again reviewed with him. This is been reviewed with both daughters. Patient for placement. He will need to follow up with me on an outpatient basis in 2-3 weeks. Will repeat labs at that visit. Time Spent With Patient Time: Total time managing care of this patient today ____ minutes. Quality Stroke Does the patient have a stroke diagnosis?: No VTE Prior VTE?: No VTE Risk Level:: Medical - moderate - high VTE Device Contraindication: Treatment Not Indicated VTE Drug Contraindication: N/A - Med Ordered
[2022-05-07] MEDS: Furosemide 40 MG/4 ML VIAL IVPUSH (09:03)
[2022-05-07] MEDS: predniSONE 20 MG TABLET PO (09:03)
[2022-05-07] MEDS: cefTRIAXone sodium 1 GM in 0.9 % Sodium Chloride 50 ML IV (09:03)
[2022-05-07] MEDS: amLODIPine Besylate 10 MG TABLET PO (09:03)
[2022-05-07] MEDS: allopurinoL 100 MG TABLET PO (09:04)
[2022-05-07] MEDS: Apixaban 5 MG TABLET PO ×2 (09:04→20:37)
[2022-05-07] MEDS: Amiodarone HCL 200 MG TABLET PO ×2 (09:04→20:38)
[2022-05-07] MEDS: Folic Acid 1 MG TABLET PO (09:04)
--- NOTE | 2022-05-07 10:42 | MHC.CM.PN ---
Per ROUNDS discussion, Patient is medically cleared for dc to SNF/STR today. [facility] dc [facility] today at 1:30 PM, via [facility]. Patient and his Daughter/Belen @ [phone] are aware of and in agreement with the dc plan. CM met with Patient at bedside and addressed IMM with him, providing him with the original and placing a copy on the chart.
[2022-05-07 11:15] LABS: COVID-19 Test Positive (Negative); IDNOW Serial# BCCEAD1C
--- NOTE | 2022-05-07 11:31 | P.DS_ITS ---
DS: Providers Provider Date of Service: 05/07/22 Date of admission: 04/28/22 18:25 Primary care physician: Unknown Physician Consults: 04/28/22 17:26 Consult to General Surgery Stat Consulting Provider: Lnace Fontanez Reason for consultation: Acute cholecystitis Has provider been notified: Yes 05/01/22 09:12 Consult to Cardiology Routine Consulting Provider: Vince Valadez Reason for consultation: New onset AFib, preoperative risk assessment for cholecystectomy Has provider been notified: No DS: Diagnosis Discharge Diagnosis (1) E coli bacteremia: Status: Acute (2) Paroxysmal atrial fibrillation: Status: Acute (3) Cardiomegaly: Status: Acute (4) Protein malnutrition: Status: Acute (5) Immunosuppression due to drug therapy: Status: Acute (6) Metabolic acidosis: Status: Acute (7) GAIL (acute kidney injury): Status: Acute (8) Diabetes: Status: Acute (9) Normal pressure hydrocephalus: Status: Acute (10) Bacteremia: Status: Acute (11) Acute cholecystitis: Status: Acute (12) Gout: Status: Acute (13) Acute respiratory failure with hypoxia: Status: Acute DS: Summary Hospital Course Hospital Course: The patient has prolonged hospital stay, for full details plz return to EMR. Admission note HPI The patient is a 77-year-old male with a past medical history of Psoriatic arthritis on Enbrel,diabetes, chronic kidney disease stage 3, normal pressure hydrocephalus status post chest [employer] shunt placed 06/2017, obstructive sleep apnea, restless legs syndrome, erectile dysfunction, and ADHD.? He presented to the emergency room via EMS after sliding off the couch on night and was unable to get up off the floor?due to chronic back pain in generalized fatigue. According to his daughter she called EMS for a well check because the patient missed an appointment today.? It is suspected that the patient was on the ground for about 36 hours.? The patient denied any? known injury, head trauma, loss of consciousness, chest pain / shortness of breath, abdominal pain, nausea /vomiting / diarrhea. On arrival to the ER his blood pressure was 97/55, heart rate 167, temp 97.6 degrees, respiratory rate 18? with SpO2 97% on room air.? EMS had reported new onset AFib but while obtaining the initial EKG the patient?s rhythm broke and he was back in a sinus rhythm at a rate of 100.? Laboratory data was significant? for WBC 34.7, BUN 58, creatinine 2.56, lactic acid 3.3, alk-phos 263, total CPK 446,? trop 43.0, BNP 349, Tbili? 1.9.? Urinalysis showed 2+ protein, moderate blood, trace leukocyte esterase, 3-5 RBCs per high-power field, 0-5 wbc?s per high-power field, no bacteria seen. ? VBG showed a pH of 7.30, bicarb 19. Imaging:CT chest, abdomen/pelvis. Abdominal ultrasound findings consistent with acute cholecystitis. ED course: Patient received a total of?3.25 L of fluids,?2 g vancomycin, and 4.5 g of Zosyn. BP mildly improved to 101/67 after fluid resuscitation.?Repeat lactic 1.3, mild improvement in leukocytosis to 21.9. General surgery Dr. Fontanez was notified of hospital admission and recommended transfer to surgical service when patient is more stable for possible percutaneous drain placement. Though blood pressure improved while in the emergency room, the patient? is immune compromised and will be admitted to ICU for close monitoring. Hospital course The patient was admitted to the hospital for evaluation of septic shock. He went ICU for fluids and monitoring. Responded well to treatment as blood cultures came back positive for E coli. Started on IV ceftriaxone with a plan to finish total of 2 weeks of antibiotics. Source believed to be acute cholecystitis shown on CT scan and ultrasound.Status post percutaneous cholecystostomy on 04/30/2022. Surgery team follow the patient with plan cholecystectomy in 1 month or so after improving nutrition status and better control of diabetes. He will follow-up with Dr. Fontanez in the office. Developed acute hypoxic respiratory failure believed to be secondary to atelectasis and possible pleural effusion. Responded well to treatment with IV Lasix and antibiotics as he was weaned off oxygen and was able to participate in physical therapy with no reported dyspnea on exertion. To continue doxycycline for 3 more days. Noted to have new onset atrial fibrillation with rapid ventricular response at time of presentation. Evaluated by Cardiology team recommended starting amiodarone and holding on blood thinners as it was only 1 incident that total resolved with control of his infection with a plan to follow-up as outpatient for Holter monitoring and further evaluation of the need of anticoagulation. The patient has history of psoriatic arthritis. Enbrel was held during the hospital stay. He was started on small dose of prednisone for reported joint pain is lower extremities and inability to participate with physical therapy. He showed significant improvement. To continue prednisone for 3 more days and start Enbrel next week. Start amiodarone 200 mg twice daily for 1 week then change to 200 mg once daily. Discontinue colchicine Start Ceftin 500 mg twice daily for 7 more days Continue doxycycline for 3 more days Continue prednisone for 3 more days, you can restart Enbrel next week To follow-up with sporting goods sales associate Dr. Valadez as outpatient, please call to arrange for visit for Holter monitoring and decision of need of blood thinners To follow-up with Dr. Fontanez to arrange for surgical intervention as outpatient Time Spent with Patient Time attestation: Total time managing care of this patient today ____ minutes. Discharge coordination time: Greater than 30 minutes Quality: Safe Use of Opioids Does Pt have an Active Cancer Diagnosis on the Problem List?: No Quality: Stroke Does the patient have a stroke diagnosis?: No Physical Exam Vital Signs: Vital Signs: Last Vital Signs Temp 97.8 F 05/07/22 08:00 Pulse 59 05/07/22 08:00 Resp 17 05/07/22 08:00 BP 148/67 H 05/07/22 08:00 Pulse Ox 97 05/07/22 08:00 O2 Del Method 05/07/22 08:00 O2 Flow Rate 30 05/05/22 00:00 FiO2 55 05/01/22 09:00 BMI result Body Mass Index 27.6 Const: Other: Constitutional : Awake, interactive, not in distress Neck : Normal inspection, Supple Cardiovascular : RRR, no JVP, no lower extremity edema Respiratory : Fair bilateral air entry, no wheezes, no crackles Gastrointestinal: soft, lax, Normal bowel sounds, Non tender, cholecystostomy tube in place Skin : Warm, Dry Neurological : Alert & oriented x3, No focal deficit DS: Data Data Completed and Pending Labs on day of discharge: Laboratory Results - last 24 hr 05/06/22 05/06/22 05/07/22 15:57 20:11 07:55 POC Glucose 286 H 305 H 101 COVID-19 ([facility]) COVID-19 Clin Com 05/07/22 10:15 POC Glucose COVID-19 ([facility]LE[facility]) Positive A COVID-19 Clin Com See Note Preliminary micro results at discharge 04/30/22 16:29 Anaerobic Culture - Preliminary Gallbladder Culture in progress. Imaging CT scan - abdomen: Radiologist's impression: ITS Impressions Chest X-Ray 04/28/22 13:50 IMPRESSION: No acute cardiopulmonary process. Abdomen/Pelvis CT 04/28/22 16:30 IMPRESSION: 1. Cholelithiasis with an inflamed, distended gallbladder, most consistent with acute cholecystitis. 2. Dependent atelectasis in the lower lobes. Otherwise, no acute pulmonary findings. 3. Cardiomegaly. 4. Severe colonic diverticulosis without evidence of acute diverticulitis. 5. Bilateral nonobstructing renal calculi. Chest CT 04/28/22 16:30 IMPRESSION: 1. Cholelithiasis with an inflamed, distended gallbladder, most consistent with acute cholecystitis. 2. Dependent atelectasis in the lower lobes. Otherwise, no acute pulmonary findings. 3. Cardiomegaly. 4. Severe colonic diverticulosis without evidence of acute diverticulitis. 5. Bilateral nonobstructing renal calculi. Abdomen Ultrasound 04/28/22 18:23 IMPRESSION: The findings on CT as well as is ultrasound of both consistent with acute cholecystitis. Chest X-Ray 04/29/22 13:34 IMPRESSION: No acute cardiopulmonary process. Abscess Drainage CT 04/30/22 16:44 IMPRESSION: Successful CT fluoroscopy-guided cholecystostomy and drainage catheter placement without any complications. Chest X-Ray 05/02/22 06:35 IMPRESSION: * Small bilateral pleural effusions with accompanying airspace opacities, more pronounced on the left * Diffuse bronchial wall thickening. Chest X-Ray 05/04/22 08:41 IMPRESSION: Small bilateral pleural effusions. The left effusion is slightly decreased from prior. Persistent left basilar airspace opacities. Mild perihilar opacities are nonspecific. This could be associated with mild edema. Discharge Plan Discharge Anticipated Discharge Date/Time: 05/07/22 11:05 Patient Disposition: Xfer [facility] Discharge Diagnosis: Septic shock from E coli bacteremia secondary to acute cholecystitis Acute hypoxic respiratory failure New onset atrial fibrillation Referrals: [facility] [Outside] - 1 Week Physician,Unknown J [Primary Care Provider] - 1 Week Lance Fontanez MD [Physician] - 1 Week Discharge Medications: New amiodarone 200 mg Tablet 200 mg PO BID Qty: 12 0RF prednisone 20 mg Tablet 20 mg PO DAILY Qty: 3 0RF doxycycline monohydrate 100 mg Capsule 100 mg PO Q12H Qty: 6 0RF amiodarone 200 mg tablet 200 mg PO DAILY Qty: 30 0RF cefuroxime axetil 500 mg tablet 500 mg PO Q12H Qty: 14 0RF Continued Enbrel SureClick 50 mg/mL (1 mL) pen injector 50 mg subcut QWEEK Qty: 12 1RF glipizide 10 mg tablet extended release 24hr 1 tab PO BID insulin glargine [Lantus Solostar U-100 Insulin] 100 unit/mL (3 mL) insulin pen 40 unit subcut BEDTIME allopurinol 100 mg tablet 100 mg PO DAILY folic acid 1 mg tablet 1 mg PO DAILY amlodipine 10 mg tablet 10 mg PO DAILY atorvastatin 20 mg tablet 20 mg PO DAILY furosemide 40 mg tablet 40 mg PO DAILY metformin 500 mg tablet 1,000 mg PO BID metoprolol tartrate 50 mg tablet 50 mg PO BID cholecalciferol (vitamin D3) 125 mcg (5,000 unit) capsule 125 mcg PO DAILY cyclobenzaprine 5 mg tablet 5 mg PO BEDTIME PRN (Reason: muscle spasm) Qty: 10 1RF Discontinued colchicine 0.6 mg tablet 0.6 mg PO DAILY Qty: 90 1RF Rx Instructions: take 2 tabs by mouth once daily for 3 days followed by 1 tab daily Discharge Orders: Discharge Order (Routine); Ordered 05/07/22 Ordered By: Amos Garza Diet: Advance to usual diet Activity on Discharge: As tolerated Stand Alone Forms: Patient Portal Discharge page Activity Restrictions/Additional Instructions: Cholecystostomy to drainage bulb. Record output in CCs Q24 hours & bring to Dr. Fontanez's office in f/u; OK to reconsititute drain ad neil. Call Dr. Fontanez with drain questions. Please call Dr. Fontanez at [phone]. Pt needs to see PCP and/or dietitian re: diabetes & protein malnutrition Patient needs cardiac clearance regarding his cardiomegaly & possible cholecystectomy. Care Plan Goals: Read below Health Concerns: Read below Plan of Treatment: Read below Assessment: You were admitted to the hospital for evaluation for increased weakness and low blood pressure with evidence of septic shock on admission requiring ICU placement. Treated with broad-spectrum IV antibiotics with good response as your gallbladder was found to be infected. It was drained by radiologist as you were evaluated by surgical team recommended outpatient follow-up for surgical arrangement to remove the gallbladder. You develop difficulty breathing with increased oxygen requirement from fluid overload and possible pneumonia treated with IV Lasix and antibiotic with good response as you were taking of the oxygen and start physical therapy with recommendation for short-term rehab. Start amiodarone 200 mg twice daily for 1 week then change to 200 mg once daily. Discontinue colchicine Start Ceftin 500 mg twice daily for 7 more days Continue doxycycline for 3 more days Continue prednisone for 3 more days, you can restart Enbrel next week To follow-up with sporting goods sales associate Dr. aVladez as outpatient, please call to arrange for visit for Holter monitoring and decision of need of blood thinners To follow-up with Dr. Fontanez to arrange for surgical intervention as outpatient
[2022-05-07 11:46] LABS: Glucose, Whole Blood 240 mg/dL (60-115)
--- NOTE | 2022-05-07 11:56 | MHC.CM.PN ---
Patient tested Covid POSITIVE on his exit swab and thus far there are no SNF bed offers that can accommodate a Covid (+) Patient. DC and transportation has been canceled and MD & Daughter have been notified of the change. CM will follow.
[2022-05-07] MEDS: Insulin Lispro 100 UNIT/ML 3 ML VIAL SUBCUT ×3 (12:12→20:37)
--- NOTE | 2022-05-07 12:19 | P.PNIM_ITS ---
Subjective Subjective Date of Service: 05/07/22 Interval History: Seen and evaluated this morning Radiate to be discharged but tested positive for COVID No hypoxia or dyspnea Denies any fever, chills or chest pain No other overnight events Review of Systems Review of Systems: Yes all other systems are reviewed and are negative Physical Exam Vital Signs: Vital Signs: Last Vital Signs Temp 98.9 F 05/07/22 12:00 Pulse 64 05/07/22 12:00 Resp 18 05/07/22 12:00 BP 148/70 H 05/07/22 12:00 Pulse Ox 94 05/07/22 12:00 O2 Del Method 05/07/22 12:00 O2 Flow Rate 30 05/05/22 00:00 FiO2 55 05/01/22 09:00 BMI result Body Mass Index 27.6 Const: Other: Constitutional : Awake, interactive, not in distress Neck : Normal inspection, Supple Cardiovascular : RRR, no JVP, no lower extremity edema Respiratory : Fair bilateral air entry, no wheezes, no crackles Gastrointestinal: soft, lax, Normal bowel sounds, Non tender, cholecystostomy tube in place Skin : Warm, Dry Neurological : Alert & oriented x3, No focal deficit Objective Data Active Medications Acetaminophen (Acetaminophen 325 Mg Tablet) 650 mg PO Q4H PRN PRN Reason: fever Last Admin: 04/30/22 14:15 Dose: 650 mg Documented By: LAITH Allopurinol (Allopurinol 100 Mg Tablet) 100 mg PO DAILY [facility] Last Admin: 05/07/22 09:04 Dose: 100 mg Documented By: LESLIE Amiodarone HCl (Amiodarone Hcl 200 Mg Tablet) 200 mg PO BID [facility] Last Admin: 05/07/22 09:04 Dose: 200 mg Documented By: LESLIE Amlodipine Besylate (Amlodipine Besylate 10 Mg Tablet) 10 mg PO DAILY [facility]; Protocol Last Admin: 05/07/22 09:03 Dose: 10 mg Documented By: LESLIE Apixaban (Apixaban 5 Mg Tablet) 5 mg PO BID [facility] Last Admin: 05/07/22 09:04 Dose: 5 mg Documented By: LESLIE Doxycycline Monohydrate (Doxycycline Monohydrate 100 Mg Capsule) 100 mg PO Q12H [facility] Last Admin: 05/07/22 05:56 Dose: 100 mg Documented By: MARIVEL Folic Acid (Folic Acid 1 Mg Tablet) 1 mg PO DAILY [facility] Last Admin: 05/07/22 09:04 Dose: 1 mg Documented By: LESLIE Furosemide (Furosemide 40 Mg/4 Ml Vial) 40 mg IVPUSH DAILY [facility]; Protocol Last Admin: 05/07/22 09:03 Dose: 40 mg Documented By: LESLIE Guaifenesin/Dextromethorphan (Guaifenesin Dm 100/10/5 Ml 5 Ml Syrup) 5 ml PO Q4H PRN PRN Reason: cough Last Admin: 05/07/22 03:27 Dose: 5 ml Documented By: MARIVEL Ceftriaxone Sodium 1 gm/ (Sodium Chloride) 50 mls @ 100 mls/hr IV Q24H [facility] Last Infusion: 05/07/22 09:42 Dose: 0 mls/hr Documented By: IAN Insulin Glargine (Insulin Glargine,Hum.Rec.Anlog 100 Unit/Ml 10 Ml Vial) 40 unit SUBCUT BEDTIME [facility] Last Admin: 05/06/22 21:42 Dose: 40 unit Documented By: MARIVEL Insulin Human Lispro (Insulin Lispro 100 Unit/Ml 3 Ml Vial) 0 unit SUBCUT QIDACHS [facility]; Protocol Last Admin: 05/07/22 12:12 Dose: 4 unit Documented By: IAN Metoprolol Tartrate (Metoprolol Tartrate 50 Mg Tablet) 50 mg PO BID [facility]; Protocol Last Admin: 05/07/22 09:06 Dose: Not Given Documented By: LESLIE Non-Admin Reason: Patient Condition Contraindication Prednisone (Prednisone 20 Mg Tablet) 20 mg PO DAILY [facility] Last Admin: 05/07/22 09:03 Dose: 20 mg Documented By: LESLIE Labs 05/03/22 06:23 05/03/22 06:23 Labs: Laboratory Results - last 24 hr 05/06/22 05/06/22 05/07/22 15:57 20:11 07:55 POC Glucose 286 H 305 H 101 COVID-19 ([facility]) COVID-19 Clin Com 05/07/22 05/07/22 10:15 11:42 POC Glucose 240 H COVID-19 ([facility]) Positive A COVID-19 Clin Com See Note Microbiology Microbiology Results: Microbiology 04/30/22 16:29 Gram Stain - Final Gallbladder Routine Culture - Final Escherichia coli Klebsiella oxytoca Anaerobic Culture - Preliminary Culture in progress. Assessment and Plan (1) Paroxysmal atrial fibrillation: Status: Acute (2) E coli bacteremia: Status: Acute (3) COVID-19 virus infection: Status: Acute Plan 77 years old male with PMH of AFib, diabetes, JASE, CKD 3, psoriasis among others who presents to the hospital after sustaining a fall. Found to have evidence of acute cholecystitis with septic shock on admission requiring ICU care. COVID-19 infection Asymptomatic at this point, no active treatment needed Acute hypoxic respiratory failure, resolved Seems secondary to atelectasis VS pleural effusion Repeated CXR showed mild improvement of effusion but persistent infiltrates continue doxycycline for antibiotics Continue incentive spirometry and Mucinex Continue po Lasix Continue physical therapy weaned off O2 Septic shock, resolved E coli bacteremia secondary to acute cholecystitis Blood cultures grew E coli Continue IV ceftriaxone to finish total of 2 weeks by May 14 Acute cholecystitis Status post percutaneous cholecystostomy on 04/30/2022 Surgery team following, plan cholecystectomy in 1 month or so after improving nutrition status and better control of diabetes Paroxysmal AFib Continue amiodarone 200 mg b.i.d. Continue metoprolol Cardiology input appreciated, will need Holter monitoring outpatient, does not qualify for anticoagulation Preoperative cardiovascular examination Intermediate risk surgery per cardiology team, no obvious cardiac contraindication for surgery Type 2 diabetes with hyperglycemia Hold oral medications SSI, Lantus Diabetic diet DVT PPX Lovenox Patient will need overnight hospital stay pending safe discharge plan. Time Spent With Patient Time: Total time managing care of this patient today ____ minutes. Quality Stroke Does the patient have a stroke diagnosis?: No VTE Prior VTE?: No VTE Risk Level:: Medical - moderate - high VTE Device Contraindication: Treatment Not Indicated VTE Drug Contraindication: N/A - Med Ordered
[2022-05-07 15:51] LABS: Glucose, Whole Blood 334 mg/dL (60-115)
[2022-05-07 19:55] LABS: Glucose, Whole Blood 332 mg/dL (60-115)
[2022-05-07] MEDS: Insulin Glargine,Hum.rec.anlog 100 UNIT/ML 10 ML VIAL 40 UNIT SUBCUT (20:36)
[2022-05-07] MEDS: Metoprolol Tartrate 50 MG TABLET PO (20:37)
[2022-05-08] VITALS (7 sets, daily range): BP systolic 125–148; BP diastolic 60–68; PULSE 59–88; RESP 17–20; TEMP 36.6–37.1; O2SAT 94–96; BMI 27.5
[2022-05-08] MEDS: Doxycycline Monohydrate 100 MG CAPSULE PO ×2 (05:07→17:10)
[2022-05-08 06:47] LABS: Hematocrit 37.7 % (42.0-52.0); Hemoglobin 12.8 g/dl (14.0-18.0); Mean Corpuscular Hemoglobin 30.5 pg (27.0-33.0); Mean Platelet Volume 10.4 fL (9.4-12.4); Platelet Count 353 X10*3/uL (160-400); Red Blood Count 4.19 X10*6/uL (4.60-5.80); Red Cell Distribution Width 13.3 % (11.0-16.0); White Blood Count 15.6 X10*3/uL (4.8-10.8)
[2022-05-08 06:52] LABS: Anion Gap 15 (12-20); Blood Urea Nitrogen 41 mg/dL (9-16); Calcium 9.3 mg/dL (8.4-10.2); Carbon Dioxide 22 mmol/L (22-29); Chloride 101 mmol/L (96-108); Creatinine Clr Calc Pharmacy 62.8; Estimated Glomerular Filt Rate > 60; Glucose Random 144 mg/dL (60-115); Potassium 4.1 mmol/L (3.3-5.1); Sodium 134 mmol/L (135-145)
[2022-05-08 07:25] LABS: Glucose, Whole Blood 118 mg/dL (60-115)
[2022-05-08] MEDS: predniSONE 20 MG TABLET PO (09:48)
[2022-05-08] MEDS: Apixaban 5 MG TABLET PO ×2 (09:48→21:57)
[2022-05-08] MEDS: amLODIPine Besylate 10 MG TABLET PO (09:48)
[2022-05-08] MEDS: Folic Acid 1 MG TABLET PO (09:48)
[2022-05-08] MEDS: Furosemide 40 MG TABLET PO (09:48)
[2022-05-08] MEDS: allopurinoL 100 MG TABLET PO (09:48)
[2022-05-08] MEDS: Amiodarone HCL 200 MG TABLET PO ×2 (09:48→21:57)
[2022-05-08] MEDS: cefTRIAXone sodium 1 GM in 0.9 % Sodium Chloride 50 ML IV (09:51)
[2022-05-08 11:18] LABS: Glucose, Whole Blood 190 mg/dL (60-115)
[2022-05-08] MEDS: Insulin Lispro 100 UNIT/ML 3 ML VIAL SUBCUT ×3 (12:20→21:58)
--- NOTE | 2022-05-08 13:05 | P.PNIM_ITS ---
Subjective Subjective Date of Service: 05/08/22 Interval History: no acute complaints Physical Exam Vital Signs: Vital Signs: Last Vital Signs Temp 98.7 F 05/08/22 11:55 Pulse 69 05/08/22 11:55 Resp 20 05/08/22 11:55 BP 134/63 05/08/22 11:55 Pulse Ox 94 05/08/22 11:55 O2 Del Method 05/08/22 11:55 O2 Flow Rate 30 05/05/22 00:00 FiO2 55 05/01/22 09:00 BMI result Body Mass Index 27.5 Const: Other: Constitutional : Awake, interactive, not in distress Neck : Normal inspection, Supple Cardiovascular : RRR, no JVP, no lower extremity edema Respiratory : Fair bilateral air entry, no wheezes, no crackles Gastrointestinal: soft, lax, Normal bowel sounds, Non tender, cholecystostomy tube in place Skin : Warm, Dry Neurological : Alert & oriented x3, No focal deficit Objective Data Active Medications Acetaminophen (Acetaminophen 325 Mg Tablet) 650 mg PO Q4H PRN PRN Reason: fever Last Admin: 04/30/22 14:15 Dose: 650 mg Documented By: LAITH Allopurinol (Allopurinol 100 Mg Tablet) 100 mg PO DAILY [facility] Last Admin: 05/08/22 09:48 Dose: 100 mg Documented By: LESLIE Amiodarone HCl (Amiodarone Hcl 200 Mg Tablet) 200 mg PO BID [facility] Last Admin: 05/08/22 09:48 Dose: 200 mg Documented By: LESLIE Amlodipine Besylate (Amlodipine Besylate 10 Mg Tablet) 10 mg PO DAILY [facility]; Protocol Last Admin: 05/08/22 09:48 Dose: 10 mg Documented By: LESLIE Apixaban (Apixaban 5 Mg Tablet) 5 mg PO BID [facility] Last Admin: 05/08/22 09:48 Dose: 5 mg Documented By: LESLIE Doxycycline Monohydrate (Doxycycline Monohydrate 100 Mg Capsule) 100 mg PO Q12H [facility] Last Admin: 05/08/22 05:07 Dose: 100 mg Documented By: SHIRLEY Folic Acid (Folic Acid 1 Mg Tablet) 1 mg PO DAILY [facility] Last Admin: 05/08/22 09:48 Dose: 1 mg Documented By: LESLIE Furosemide (Furosemide 40 Mg Tablet) 40 mg PO DAILY [facility]; Protocol Last Admin: 05/08/22 09:48 Dose: 40 mg Documented By: LESLIE Guaifenesin/Dextromethorphan (Guaifenesin Dm 100/10/5 Ml 5 Ml Syrup) 5 ml PO Q4H PRN PRN Reason: cough Last Admin: 05/07/22 03:27 Dose: 5 ml Documented By: MARIVEL Ceftriaxone Sodium 1 gm/ (Sodium Chloride) 50 mls @ 100 mls/hr IV Q24H [facility] Last Infusion: 05/08/22 10:41 Dose: 0 mls/hr Documented By: LESLIE Insulin Glargine (Insulin Glargine,Hum.Rec.Anlog 100 Unit/Ml 10 Ml Vial) 40 unit SUBCUT BEDTIME [facility] Last Admin: 05/07/22 20:36 Dose: 40 unit Documented By: SHIRLEY Insulin Human Lispro (Insulin Lispro 100 Unit/Ml 3 Ml Vial) 0 unit SUBCUT QIDACHS [facility]; Protocol Last Admin: 05/08/22 12:20 Dose: 2 unit Documented By: LESLIE Metoprolol Tartrate (Metoprolol Tartrate 50 Mg Tablet) 50 mg PO BID [facility]; Protocol Last Admin: 05/08/22 10:41 Dose: Not Given Documented By: LESLIE Non-Admin Reason: Patient Condition Contraindication Prednisone (Prednisone 20 Mg Tablet) 20 mg PO DAILY [facility] Last Admin: 05/08/22 09:48 Dose: 20 mg Documented By: LESLIE Labs 05/08/22 06:17 05/08/22 06:17 Labs: Laboratory Results - last 24 hr 05/07/22 05/07/22 05/08/22 15:21 19:31 06:17 MCV 90.0 MCH 30.5 MCHC 34.0 RDW 13.3 Plt Count 353 D MPV 10.4 Absolute Nucleated RBC 0.000 Nucleated RBC % (auto) 0.0 Anion Gap Estim Creat Clear Calc Estimated GFR POC Glucose 334 H 332 H Random Glucose Calcium 05/08/22 05/08/22 05/08/22 06:17 07:22 11:09 MCV MCH MCHC RDW Plt Count MPV Absolute Nucleated RBC Nucleated RBC % (auto) Anion Gap 15 Estim Creat Clear Calc 62.8 Estimated GFR > 60 POC Glucose 118 H 190 H Random Glucose 144 H Calcium 9.3 D Microbiology Microbiology Results: Microbiology 04/30/22 16:29 Gram Stain - Final Gallbladder Routine Culture - Final Escherichia coli Klebsiella oxytoca Anaerobic Culture - Final Bacteroides thetaiotaomicron Assessment and Plan (1) Paroxysmal atrial fibrillation: Status: Acute (2) E coli bacteremia: Status: Acute (3) COVID-19 virus infection: Status: Acute Plan 77 years old male with PMH of paroxysmal AFib, diabetes, JASE, CKD 3, psoriasis among others who presented to the hospital after sustaining a fall. Found to have evidence of acute cholecystitis with septic shock on admission requiring ICU care. Acute hypoxic respiratory failure due to acute on chronic diastolic chf, resolved Seems secondary to atelectasis VS pleural effusion Repeated CXR showed mild improvement of effusion but persistent infiltrates continue doxycycline for antibiotics Continue incentive spirometry and Mucinex Continue po Lasix Continue physical therapy weaned off O2 Septic shock, resolved E coli bacteremia secondary to acute cholecystitis Blood cultures grew E coli Continue IV ceftriaxone to finish total of 2 weeks by May 14 Acute cholecystitis Status post percutaneous cholecystostomy on 04/30/2022 Surgery team following, plan cholecystectomy in 1 month or so after improving nutrition status and better control of diabetes COVID-19 infection Asymptomatic at this point, no active treatment needed Paroxysmal AFib Continue amiodarone 200 mg b.i.d. Continue metoprolol Cardiology input appreciated, will need Holter monitoring outpatient, does not qualify for anticoagulation Preoperative cardiovascular examination Intermediate risk surgery per cardiology team, no obvious cardiac contraindication for surgery Type 2 diabetes with hyperglycemia Hold oral medications SSI, Lantus Diabetic diet DVT PPX eliquis full code reason for continued hospitalization:safe dispo (covid positive) Time Spent With Patient Time: Total time managing care of this patient today ____ minutes. Quality Stroke Does the patient have a stroke diagnosis?: No VTE Prior VTE?: No VTE Risk Level:: Medical - moderate - high VTE Device Contraindication: Treatment Not Indicated VTE Drug Contraindication: N/A - Med Ordered
[2022-05-08 16:08] LABS: Glucose, Whole Blood 490 mg/dL (60-115)
[2022-05-08 20:40] LABS: Glucose, Whole Blood 435 mg/dL (60-115)
[2022-05-08] MEDS: Metoprolol Tartrate 50 MG TABLET PO (21:57)
[2022-05-08] MEDS: Insulin Glargine,Hum.rec.anlog 100 UNIT/ML 10 ML VIAL 40 UNIT SUBCUT (21:58)
[2022-05-09] VITALS (8 sets, daily range): BP systolic 118–151; BP diastolic 66–80; PULSE 52–68; RESP 16–18; TEMP 36.2–36.8; O2SAT 94–99
[2022-05-09] MEDS: Doxycycline Monohydrate 100 MG CAPSULE PO ×2 (06:27→16:43)
[2022-05-09 07:29] LABS: Glucose, Whole Blood 129 mg/dL (60-115)
[2022-05-09] MEDS: cefTRIAXone sodium 1 GM in 0.9 % Sodium Chloride 50 ML IV (10:27)
[2022-05-09] MEDS: Furosemide 40 MG TABLET PO (10:56)
[2022-05-09] MEDS: Apixaban 5 MG TABLET PO ×2 (10:56→21:55)
[2022-05-09] MEDS: amLODIPine Besylate 10 MG TABLET PO (10:56)
--- NOTE | 2022-05-09 10:56 | P.PNIM_ITS ---
Subjective Subjective Date of Service: 05/09/22 Interval History: no acute complaints Physical Exam Vital Signs: Vital Signs: Last Vital Signs Temp 98.0 F 05/09/22 07:14 Pulse 54 05/09/22 07:14 Resp 16 05/09/22 07:14 BP 124/76 05/09/22 07:14 Pulse Ox 95 05/09/22 07:14 O2 Del Method 05/09/22 07:14 O2 Flow Rate 30 05/05/22 00:00 FiO2 55 05/01/22 09:00 BMI result Body Mass Index 27.5 Const: Other: Constitutional : Awake, interactive, not in distress Neck : Normal inspection, Supple Cardiovascular : RRR, no JVP, no lower extremity edema Respiratory : Fair bilateral air entry, no wheezes, no crackles Gastrointestinal: soft, lax, Normal bowel sounds, Non tender, cholecystostomy tube in place Skin : Warm, Dry Neurological : Alert & oriented x3, No focal deficit Objective Data Active Medications Acetaminophen (Acetaminophen 325 Mg Tablet) 650 mg PO Q4H PRN PRN Reason: fever Last Admin: 04/30/22 14:15 Dose: 650 mg Documented By: LAITH Allopurinol (Allopurinol 100 Mg Tablet) 100 mg PO DAILY [facility] Last Admin: 05/08/22 09:48 Dose: 100 mg Documented By: LESLIE Amiodarone HCl (Amiodarone Hcl 200 Mg Tablet) 200 mg PO BID [facility] Last Admin: 05/08/22 21:57 Dose: 200 mg Documented By: EZRA Amlodipine Besylate (Amlodipine Besylate 10 Mg Tablet) 10 mg PO DAILY [facility]; Protocol Last Admin: 05/08/22 09:48 Dose: 10 mg Documented By: LESLIE Apixaban (Apixaban 5 Mg Tablet) 5 mg PO BID [facility] Last Admin: 05/08/22 21:57 Dose: 5 mg Documented By: EZRA Doxycycline Monohydrate (Doxycycline Monohydrate 100 Mg Capsule) 100 mg PO Q12H [facility] Last Admin: 05/09/22 06:27 Dose: 100 mg Documented By: EZRA Folic Acid (Folic Acid 1 Mg Tablet) 1 mg PO DAILY [facility] Last Admin: 05/08/22 09:48 Dose: 1 mg Documented By: LESLIE Furosemide (Furosemide 40 Mg Tablet) 40 mg PO DAILY [facility]; Protocol Last Admin: 05/08/22 09:48 Dose: 40 mg Documented By: LESLIE Guaifenesin/Dextromethorphan (Guaifenesin Dm 100/10/5 Ml 5 Ml Syrup) 5 ml PO Q4H PRN PRN Reason: cough Last Admin: 05/07/22 03:27 Dose: 5 ml Documented By: MARIVEL Ceftriaxone Sodium 1 gm/ (Sodium Chloride) 50 mls @ 100 mls/hr IV Q24H [facility] Last Admin: 05/09/22 10:27 Dose: 100 mls/hr Documented By: RAYMOND Insulin Glargine (Insulin Glargine,Hum.Rec.Anlog 100 Unit/Ml 10 Ml Vial) 40 unit SUBCUT BEDTIME [facility] Last Admin: 05/08/22 21:58 Dose: 40 unit Documented By: EZRA Insulin Human Lispro (Insulin Lispro 100 Unit/Ml 3 Ml Vial) 0 unit SUBCUT QIDACHS [facility]; Protocol Last Admin: 05/09/22 07:30 Dose: Not Given Documented By: RAYMOND Non-Admin Reason: No Insulin Coverage Metoprolol Tartrate (Metoprolol Tartrate 50 Mg Tablet) 50 mg PO BID [facility]; Protocol Last Admin: 05/08/22 21:57 Dose: 50 mg Documented By: EZRA Prednisone (Prednisone 20 Mg Tablet) 20 mg PO DAILY [facility] Last Admin: 05/08/22 09:48 Dose: 20 mg Documented By: LESLIE Labs 05/08/22 06:17 05/08/22 06:17 Labs: Laboratory Results - last 24 hr 05/08/22 05/08/22 05/08/22 11:09 15:47 20:35 POC Glucose 190 H 490 H* 435 H* 05/09/22 07:18 POC Glucose 129 H Assessment and Plan (1) Paroxysmal atrial fibrillation: Status: Acute (2) E coli bacteremia: Status: Acute (3) COVID-19 virus infection: Status: Acute Plan 77 years old male with PMH of paroxysmal AFib, diabetes, JASE, CKD 3, psoriasis among others who presented to the hospital after sustaining a fall. Found to have evidence of acute cholecystitis with septic shock on admission requiring ICU care. Acute hypoxic respiratory failure due to acute on chronic diastolic chf, resolved Seems secondary to atelectasis VS pleural effusion Repeated CXR showed mild improvement of effusion but persistent infiltrates continue doxycycline for antibiotics Continue incentive spirometry and Mucinex Continue po Lasix Continue physical therapy weaned off O2 Septic shock, resolved E coli bacteremia secondary to acute cholecystitis Blood cultures grew E coli Continue IV ceftriaxone to finish total of 2 weeks by May 14 Acute cholecystitis Status post percutaneous cholecystostomy on 04/30/2022 Surgery team following, plan cholecystectomy in 1 month or so after improving nutrition status and better control of diabetes COVID-19 infection Asymptomatic at this point, no active treatment needed Paroxysmal AFib Continue amiodarone 200 mg b.i.d. Continue metoprolol Cardiology input appreciated, will need Holter monitoring outpatient, does not qualify for anticoagulation Preoperative cardiovascular examination Intermediate risk surgery per cardiology team, no obvious cardiac contraindication for surgery Type 2 diabetes with hyperglycemia Hold oral medications SSI, Lantus Diabetic diet DVT PPX eliquis full code reason for continued hospitalization:safe dispo (covid positive) Time Spent With Patient Time: Total time managing care of this patient today ____ minutes. Quality Stroke Does the patient have a stroke diagnosis?: No VTE Prior VTE?: No VTE Risk Level:: Medical - moderate - high VTE Device Contraindication: Treatment Not Indicated VTE Drug Contraindication: N/A - Med Ordered
[2022-05-09] MEDS: predniSONE 20 MG TABLET PO (10:57)
[2022-05-09] MEDS: Amiodarone HCL 200 MG TABLET PO ×2 (10:57→21:55)
[2022-05-09] MEDS: Folic Acid 1 MG TABLET PO (10:57)
[2022-05-09] MEDS: allopurinoL 100 MG TABLET PO (10:58)
[2022-05-09 11:18] LABS: Glucose, Whole Blood 221 mg/dL (60-115)
[2022-05-09] MEDS: Insulin Lispro 100 UNIT/ML 3 ML VIAL SUBCUT ×3 (12:53→21:55)
--- NOTE | 2022-05-09 14:09 | MHC.CM.PN ---
IMM 05/07/22 Male pt Covid+ on dc 05/07 to [facility]. The patient will be considered Covid recovered 05/18/22 DP STR via BLS.
[2022-05-09 16:34] LABS: Glucose, Whole Blood 221 mg/dL (60-115)
[2022-05-09] MEDS: Metoprolol Tartrate 50 MG TABLET PO (21:55)
[2022-05-09] MEDS: Insulin Glargine,Hum.rec.anlog 100 UNIT/ML 10 ML VIAL 40 UNIT SUBCUT (21:56)
[2022-05-09 22:38] LABS: Glucose, Whole Blood 288 mg/dL (60-115)
[2022-05-10] VITALS (9 sets, daily range): BP systolic 149–156; BP diastolic 67–78; PULSE 52–96; RESP 18–20; TEMP 36.1–37.1; O2SAT 93–98; BMI 26.9
[2022-05-10] MEDS: Doxycycline Monohydrate 100 MG CAPSULE PO ×2 (05:37→17:28)
[2022-05-10 07:23] LABS: Glucose, Whole Blood 94 mg/dL (60-115)
--- NOTE | 2022-05-10 09:01 | P.PNIM_ITS ---
Subjective Subjective Date of Service: 05/10/22 Interval History: no acute complaints Physical Exam Vital Signs: Vital Signs: Last Vital Signs Temp 97.5 F 05/10/22 08:00 Pulse 54 05/10/22 08:00 Resp 20 05/10/22 08:00 BP 151/68 H 05/10/22 08:00 Pulse Ox 94 05/10/22 08:00 O2 Del Method 05/10/22 08:00 O2 Flow Rate 30 05/05/22 00:00 FiO2 55 05/01/22 09:00 BMI result Body Mass Index 26.9 Const: Other: Constitutional : Awake, interactive, not in distress Neck : Normal inspection, Supple Cardiovascular : RRR, no JVP, no lower extremity edema Respiratory : Fair bilateral air entry, no wheezes, no crackles Gastrointestinal: soft, lax, Normal bowel sounds, Non tender, cholecystostomy tube in place Skin : Warm, Dry Neurological : Alert & oriented x3, No focal deficit Objective Data Active Medications Acetaminophen (Acetaminophen 325 Mg Tablet) 650 mg PO Q4H PRN PRN Reason: fever Last Admin: 04/30/22 14:15 Dose: 650 mg Documented By: LAITH Allopurinol (Allopurinol 100 Mg Tablet) 100 mg PO DAILY [facility] Last Admin: 05/09/22 10:58 Dose: 100 mg Documented By: RAYMOND Amiodarone HCl (Amiodarone Hcl 200 Mg Tablet) 200 mg PO BID [facility] Last Admin: 05/09/22 21:55 Dose: 200 mg Documented By: EZRA Amlodipine Besylate (Amlodipine Besylate 10 Mg Tablet) 10 mg PO DAILY [facility]; Protocol Last Admin: 05/09/22 10:56 Dose: 10 mg Documented By: RAYMOND Apixaban (Apixaban 5 Mg Tablet) 5 mg PO BID [facility] Last Admin: 05/09/22 21:55 Dose: 5 mg Documented By: EZRA Doxycycline Monohydrate (Doxycycline Monohydrate 100 Mg Capsule) 100 mg PO Q12H [facility] Last Admin: 05/10/22 05:37 Dose: 100 mg Documented By: EZRA Folic Acid (Folic Acid 1 Mg Tablet) 1 mg PO DAILY [facility] Last Admin: 05/09/22 10:57 Dose: 1 mg Documented By: RAYMOND Furosemide (Furosemide 40 Mg Tablet) 40 mg PO DAILY [facility]; Protocol Last Admin: 05/09/22 10:56 Dose: 40 mg Documented By: RAYMOND Guaifenesin/Dextromethorphan (Guaifenesin Dm 100/10/5 Ml 5 Ml Syrup) 5 ml PO Q4H PRN PRN Reason: cough Last Admin: 05/07/22 03:27 Dose: 5 ml Documented By: MARIVEL Ceftriaxone Sodium 1 gm/ (Sodium Chloride) 50 mls @ 100 mls/hr IV Q24H [facility] Last Infusion: 05/09/22 11:18 Dose: 0 mls/hr Documented By: RAYMOND Insulin Glargine (Insulin Glargine,Hum.Rec.Anlog 100 Unit/Ml 10 Ml Vial) 40 unit SUBCUT BEDTIME [facility] Last Admin: 05/09/22 21:56 Dose: 40 unit Documented By: EZRA Insulin Human Lispro (Insulin Lispro 100 Unit/Ml 3 Ml Vial) 0 unit SUBCUT QIDACHS [facility]; Protocol Last Admin: 05/10/22 07:55 Dose: Not Given Documented By: MADISON Non-Admin Reason: No Insulin Coverage Metoprolol Tartrate (Metoprolol Tartrate 50 Mg Tablet) 50 mg PO BID [facility]; Protocol Last Admin: 05/09/22 21:55 Dose: 50 mg Documented By: EZRA Prednisone (Prednisone 20 Mg Tablet) 20 mg PO DAILY [facility] Last Admin: 05/09/22 10:57 Dose: 20 mg Documented By: RAYMOND Labs 05/08/22 06:17 05/08/22 06:17 Labs: Laboratory Results - last 24 hr 05/09/22 05/09/22 05/09/22 11:06 16:27 21:18 POC Glucose 221 H 221 H 288 H 05/10/22 07:16 POC Glucose 94 Assessment and Plan (1) Paroxysmal atrial fibrillation: Status: Acute (2) E coli bacteremia: Status: Acute (3) COVID-19 virus infection: Status: Acute Plan 77 years old male with PMH of paroxysmal AFib, diabetes, JASE, CKD 3, psoriasis among others who presented to the hospital after sustaining a fall. Found to have evidence of acute cholecystitis with septic shock on admission requiring ICU care. Acute hypoxic respiratory failure due to acute on chronic diastolic chf, resolved Seems secondary to atelectasis VS pleural effusion Repeated CXR showed mild improvement of effusion but persistent infiltrates continue doxycycline for antibiotics Continue incentive spirometry and Mucinex Continue po Lasix Continue physical therapy weaned off O2 Septic shock, resolved E coli bacteremia secondary to acute cholecystitis Blood cultures grew E coli Continue IV ceftriaxone to finish total of 2 weeks by May 14 Acute cholecystitis Status post percutaneous cholecystostomy on 04/30/2022 Surgery team following, plan cholecystectomy in 1 month or so after improving nutrition status and better control of diabetes COVID-19 infection Asymptomatic at this point, no active treatment needed Paroxysmal AFib Continue amiodarone 200 mg b.i.d. Continue metoprolol Cardiology input appreciated, will need Holter monitoring outpatient, does not qualify for anticoagulation Preoperative cardiovascular examination Intermediate risk surgery per cardiology team, no obvious cardiac contraindication for surgery Type 2 diabetes with hyperglycemia Hold oral medications SSI, Lantus Diabetic diet DVT PPX eliquis full code reason for continued hospitalization:safe dispo (covid positive) Time Spent With Patient Time: Total time managing care of this patient today ____ minutes. Quality Stroke Does the patient have a stroke diagnosis?: No VTE Prior VTE?: No VTE Risk Level:: Medical - moderate - high VTE Device Contraindication: Treatment Not Indicated VTE Drug Contraindication: N/A - Med Ordered
[2022-05-10] MEDS: Amiodarone HCL 200 MG TABLET PO ×2 (09:19→20:13)
[2022-05-10] MEDS: Apixaban 5 MG TABLET PO ×2 (09:19→20:14)
[2022-05-10] MEDS: amLODIPine Besylate 10 MG TABLET PO (09:19)
[2022-05-10] MEDS: predniSONE 20 MG TABLET PO (09:19)
[2022-05-10] MEDS: cefTRIAXone sodium 1 GM in 0.9 % Sodium Chloride 50 ML IV (09:19)
[2022-05-10] MEDS: Folic Acid 1 MG TABLET PO (09:20)
[2022-05-10] MEDS: Furosemide 40 MG TABLET PO (09:20)
[2022-05-10] MEDS: allopurinoL 100 MG TABLET PO (09:20)
[2022-05-10 10:58] LABS: Glucose, Whole Blood 225 mg/dL (60-115)
[2022-05-10] MEDS: Insulin Lispro 100 UNIT/ML 3 ML VIAL SUBCUT ×3 (11:24→20:34)
[2022-05-10 16:11] LABS: Glucose, Whole Blood 330 mg/dL (60-115)
[2022-05-10 20:09] LABS: Glucose, Whole Blood 382 mg/dL (60-115)
[2022-05-10] MEDS: Metoprolol Tartrate 50 MG TABLET PO (20:13)
[2022-05-10] MEDS: Insulin Glargine,Hum.rec.anlog 100 UNIT/ML 10 ML VIAL 40 UNIT SUBCUT (20:34)
[2022-05-11] VITALS (8 sets, daily range): BP systolic 135–140; BP diastolic 65–72; PULSE 54–80; RESP 17–20; TEMP 36.3–37.1; O2SAT 94–97
[2022-05-11] MEDS: Doxycycline Monohydrate 100 MG CAPSULE PO ×2 (04:41→17:45)
[2022-05-11 07:17] LABS: Glucose, Whole Blood 99 mg/dL (60-115)
[2022-05-11] MEDS: Metoprolol Tartrate 50 MG TABLET PO ×2 (09:32→21:33)
[2022-05-11] MEDS: Folic Acid 1 MG TABLET PO (09:32)
[2022-05-11] MEDS: Amiodarone HCL 200 MG TABLET PO ×2 (09:32→21:33)
[2022-05-11] MEDS: Furosemide 40 MG TABLET PO (09:32)
[2022-05-11] MEDS: amLODIPine Besylate 10 MG TABLET PO (09:32)
[2022-05-11] MEDS: predniSONE 20 MG TABLET PO (09:32)
[2022-05-11] MEDS: Apixaban 5 MG TABLET PO ×2 (09:32→21:33)
[2022-05-11] MEDS: allopurinoL 100 MG TABLET PO (09:33)
[2022-05-11 10:18] LABS: Glucose, Whole Blood 203 mg/dL (60-115)
[2022-05-11 11:09] LABS: Glucose, Whole Blood 171 mg/dL (60-115)
--- NOTE | 2022-05-11 11:11 | P.PNIM_ITS ---
Subjective Subjective Date of Service: 05/11/22 Interval History: no acute complaints, doing well otherwise, off supplemental oxygen Physical Exam Vital Signs: Vital Signs: Last Vital Signs Temp 97.3 F 05/11/22 07:14 Pulse 68 05/11/22 07:14 Resp 18 05/11/22 07:14 BP 135/65 05/11/22 07:14 Pulse Ox 95 05/11/22 07:14 O2 Del Method 05/11/22 07:14 O2 Flow Rate 30 05/05/22 00:00 FiO2 55 05/01/22 09:00 BMI result Body Mass Index 26.9 Const: Other: Constitutional : Awake, interactive, not in distress Neck : Normal inspection, Supple Cardiovascular : RRR, no JVP, no lower extremity edema Respiratory : Fair bilateral air entry, no wheezes, no crackles Gastrointestinal: soft, lax, Normal bowel sounds, Non tender, cholecystostomy tube in place Skin : Warm, Dry Neurological : Alert & oriented x3, No focal deficit Objective Data Active Medications Acetaminophen (Acetaminophen 325 Mg Tablet) 650 mg PO Q4H PRN PRN Reason: fever Last Admin: 04/30/22 14:15 Dose: 650 mg Documented By: LAITH Allopurinol (Allopurinol 100 Mg Tablet) 100 mg PO DAILY [facility] Last Admin: 05/11/22 09:33 Dose: 100 mg Documented By: LINDSEY Amiodarone HCl (Amiodarone Hcl 200 Mg Tablet) 200 mg PO BID [facility] Last Admin: 05/11/22 09:32 Dose: 200 mg Documented By: LINDSEY Amlodipine Besylate (Amlodipine Besylate 10 Mg Tablet) 10 mg PO DAILY [facility]; Protocol Last Admin: 05/11/22 09:32 Dose: 10 mg Documented By: LINDSYE Apixaban (Apixaban 5 Mg Tablet) 5 mg PO BID [facility] Last Admin: 05/11/22 09:32 Dose: 5 mg Documented By: LINDSEY Doxycycline Monohydrate (Doxycycline Monohydrate 100 Mg Capsule) 100 mg PO Q12H [facility] Last Admin: 05/11/22 04:41 Dose: 100 mg Documented By: ANTOIC Folic Acid (Folic Acid 1 Mg Tablet) 1 mg PO DAILY [facility] Last Admin: 05/11/22 09:32 Dose: 1 mg Documented By: LINDSEY Furosemide (Furosemide 40 Mg Tablet) 40 mg PO DAILY [facility]; Protocol Last Admin: 05/11/22 09:32 Dose: 40 mg Documented By: LINDSEY Guaifenesin/Dextromethorphan (Guaifenesin Dm 100/10/5 Ml 5 Ml Syrup) 5 ml PO Q4H PRN PRN Reason: cough Last Admin: 05/07/22 03:27 Dose: 5 ml Documented By: MARIVEL Insulin Glargine (Insulin Glargine,Hum.Rec.Anlog 100 Unit/Ml 10 Ml Vial) 40 unit SUBCUT BEDTIME [facility] Last Admin: 05/10/22 20:34 Dose: 40 unit Documented By: BRYSONOIC Insulin Human Lispro (Insulin Lispro 100 Unit/Ml 3 Ml Vial) 0 unit SUBCUT QIDACHS [facility]; Protocol Last Admin: 05/11/22 10:17 Dose: Not Given Documented By: LINDSEY Non-Admin Reason: No Insulin Coverage Metoprolol Tartrate (Metoprolol Tartrate 50 Mg Tablet) 50 mg PO BID [facility]; Protocol Last Admin: 05/11/22 09:32 Dose: 50 mg Documented By: LINDSEY Prednisone (Prednisone 20 Mg Tablet) 20 mg PO DAILY [facility] Last Admin: 05/11/22 09:32 Dose: 20 mg Documented By: LINDSEY Labs 05/08/22 06:17 05/08/22 06:17 Labs: Laboratory Results - last 24 hr 05/10/22 05/10/22 05/11/22 16:07 19:36 07:12 POC Glucose 330 H 382 H* 99 05/11/22 05/11/22 10:11 11:01 POC Glucose 203 H 171 H Assessment and Plan (1) Paroxysmal atrial fibrillation: Status: Acute (2) E coli bacteremia: Status: Acute (3) COVID-19 virus infection: Status: Acute Plan 77 years old male with PMH of paroxysmal AFib, diabetes, JASE, CKD 3, psoriasis among others who presented to the hospital after sustaining a fall. Found to have evidence of acute cholecystitis with septic shock on admission requiring ICU care. Acute hypoxic respiratory failure due to acute on chronic diastolic chf, resolved Seems secondary to atelectasis VS pleural effusion Repeated CXR showed mild improvement of effusion but persistent infiltrates continue doxycycline for antibiotics Continue incentive spirometry and Mucinex Continue po Lasix Continue physical therapy weaned off O2 Septic shock, resolved E coli bacteremia secondary to acute cholecystitis Blood cultures grew E coli Continue IV ceftriaxone to finish total of 2 weeks ending May 14 Acute cholecystitis Status post percutaneous cholecystostomy on 04/30/2022 Surgery team following, plan cholecystectomy in 1 month or so after improving nutrition status and better control of diabetes COVID-19 infection Asymptomatic at this point, no active treatment needed Paroxysmal AFib Continue amiodarone 200 mg b.i.d. Continue metoprolol Cardiology input appreciated, will need Holter monitoring outpatient, does not qualify for anticoagulation Preoperative cardiovascular examination Intermediate risk surgery per cardiology team, no obvious cardiac contraindication for surgery Type 2 diabetes with hyperglycemia Hold oral medications SSI, Lantus Diabetic diet DVT PPX eliquis full code reason for continued hospitalization:safe dispo (covid positive) Time Spent With Patient Time: Total time managing care of this patient today ____ minutes. Quality Stroke Does the patient have a stroke diagnosis?: No VTE Prior VTE?: No VTE Risk Level:: Medical - moderate - high VTE Device Contraindication: Treatment Not Indicated VTE Drug Contraindication: N/A - Med Ordered
[2022-05-11] MEDS: Insulin Lispro 100 UNIT/ML 3 ML VIAL SUBCUT ×3 (11:57→21:34)
--- NOTE | 2022-05-11 12:36 | MHC.CM.PN ---
DP STR once Covid recovered 05/18/22. Pending bed availability he will dc to [facility] via BLS.
[2022-05-11 16:25] LABS: Glucose, Whole Blood 244 mg/dL (60-115)
[2022-05-11 21:11] LABS: Glucose, Whole Blood 404 mg/dL (60-115)
[2022-05-11] MEDS: Insulin Glargine,Hum.rec.anlog 100 UNIT/ML 10 ML VIAL 40 UNIT SUBCUT (21:34)
[2022-05-11] MEDS: Nystatin Powder 15 GM BOTTLE 1 APPL TOPICAL (21:45)
[2022-05-12] VITALS (9 sets, daily range): BP systolic 125–169; BP diastolic 60–77; PULSE 49–98; RESP 15–20; TEMP 36.2–37.1; O2SAT 93–97
[2022-05-12] MEDS: Doxycycline Monohydrate 100 MG CAPSULE PO ×2 (05:54→17:38)
[2022-05-12 07:58] LABS: Glucose, Whole Blood 82 mg/dL (60-115)
[2022-05-12] MEDS: Folic Acid 1 MG TABLET PO (09:38)
[2022-05-12] MEDS: allopurinoL 100 MG TABLET PO (09:38)
[2022-05-12] MEDS: predniSONE 20 MG TABLET PO (09:38)
[2022-05-12] MEDS: Apixaban 5 MG TABLET PO ×2 (09:38→21:58)
[2022-05-12] MEDS: Metoprolol Tartrate 50 MG TABLET PO ×2 (09:38→21:58)
[2022-05-12] MEDS: Furosemide 40 MG TABLET PO (09:38)
[2022-05-12] MEDS: Amiodarone HCL 200 MG TABLET PO ×2 (09:38→21:58)
[2022-05-12] MEDS: amLODIPine Besylate 10 MG TABLET PO (09:38)
[2022-05-12] MEDS: Nystatin Powder 15 GM BOTTLE 1 APPL TOPICAL ×3 (10:18→21:59)
--- NOTE | 2022-05-12 11:16 | P.PNIM_ITS ---
Subjective Subjective Date of Service: 05/12/22 Interval History: no acute complaints, doing well otherwise, off supplemental oxygen Physical Exam Vital Signs: Vital Signs: Last Vital Signs Temp 97.4 F 05/12/22 07:10 Pulse 55 05/12/22 07:10 Resp 17 05/12/22 07:10 BP 137/64 05/12/22 07:10 Pulse Ox 94 05/12/22 07:10 O2 Del Method 05/12/22 07:10 O2 Flow Rate 30 05/05/22 00:00 FiO2 55 05/01/22 09:00 BMI result Body Mass Index 26.9 Const: Other: Constitutional : Awake, interactive, not in distress Neck : Normal inspection, Supple Cardiovascular : RRR, no JVP, no lower extremity edema Respiratory : Fair bilateral air entry, no wheezes, no crackles Gastrointestinal: soft, lax, Normal bowel sounds, Non tender, cholecystostomy tube in place Skin : Warm, Dry Neurological : Alert & oriented x3, No focal deficit Objective Data Active Medications Acetaminophen (Acetaminophen 325 Mg Tablet) 650 mg PO Q4H PRN PRN Reason: fever Last Admin: 04/30/22 14:15 Dose: 650 mg Documented By: LAITH Allopurinol (Allopurinol 100 Mg Tablet) 100 mg PO DAILY [facility] Last Admin: 05/12/22 09:38 Dose: 100 mg Documented By: MADISON Amiodarone HCl (Amiodarone Hcl 200 Mg Tablet) 200 mg PO BID [facility] Last Admin: 05/12/22 09:38 Dose: 200 mg Documented By: MADISON Amlodipine Besylate (Amlodipine Besylate 10 Mg Tablet) 10 mg PO DAILY [facility]; Protocol Last Admin: 05/12/22 09:38 Dose: 10 mg Documented By: MADISON Apixaban (Apixaban 5 Mg Tablet) 5 mg PO BID [facility] Last Admin: 05/12/22 09:38 Dose: 5 mg Documented By: MADISON Doxycycline Monohydrate (Doxycycline Monohydrate 100 Mg Capsule) 100 mg PO Q12H [facility] Last Admin: 05/12/22 05:54 Dose: 100 mg Documented By: LOU Folic Acid (Folic Acid 1 Mg Tablet) 1 mg PO DAILY [facility] Last Admin: 05/12/22 09:38 Dose: 1 mg Documented By: MADISON Furosemide (Furosemide 40 Mg Tablet) 40 mg PO DAILY [facility]; Protocol Last Admin: 05/12/22 09:38 Dose: 40 mg Documented By: MADISON Guaifenesin/Dextromethorphan (Guaifenesin Dm 100/10/5 Ml 5 Ml Syrup) 5 ml PO Q4H PRN PRN Reason: cough Last Admin: 05/07/22 03:27 Dose: 5 ml Documented By: MARIVEL Insulin Glargine (Insulin Glargine,Hum.Rec.Anlog 100 Unit/Ml 10 Ml Vial) 40 unit SUBCUT BEDTIME [facility] Last Admin: 05/11/22 21:34 Dose: 40 unit Documented By: LOU Insulin Human Lispro (Insulin Lispro 100 Unit/Ml 3 Ml Vial) 0 unit SUBCUT QIDACHS [facility]; Protocol Last Admin: 05/12/22 08:35 Dose: Not Given Documented By: MADISON Non-Admin Reason: No Insulin Coverage Metoprolol Tartrate (Metoprolol Tartrate 50 Mg Tablet) 50 mg PO BID [facility]; Protocol Last Admin: 05/12/22 09:38 Dose: 50 mg Documented By: MADISON Nystatin (Nystatin Powder 15 Gm Bottle) 1 appl TOPICAL TID [facility]; Protocol Last Admin: 05/12/22 10:18 Dose: 1 appl Documented By: MADISON Prednisone (Prednisone 20 Mg Tablet) 20 mg PO DAILY [facility] Last Admin: 05/12/22 09:38 Dose: 20 mg Documented By: MADISON Labs 05/08/22 06:17 05/08/22 06:17 Labs: Laboratory Results - last 24 hr 05/11/22 05/11/22 05/12/22 16:20 21:07 07:13 POC Glucose 244 H 404 H* 82 Assessment and Plan (1) Paroxysmal atrial fibrillation: Status: Acute (2) E coli bacteremia: Status: Acute (3) COVID-19 virus infection: Status: Acute Plan 77 years old male with PMH of paroxysmal AFib, diabetes, JASE, CKD 3, psoriasis among others who presented to the hospital after sustaining a fall. Found to have evidence of acute cholecystitis with septic shock on admission requiring ICU care. Acute hypoxic respiratory failure due to acute on chronic diastolic chf, resolved Seems secondary to atelectasis VS pleural effusion Repeated CXR showed mild improvement of effusion but persistent infiltrates continue doxycycline for antibiotics Continue incentive spirometry and Mucinex Continue po Lasix Continue physical therapy weaned off O2 Septic shock, resolved E coli bacteremia secondary to acute cholecystitis Blood cultures grew E coli Continue IV ceftriaxone to finish total of 2 weeks ending May 14 Acute cholecystitis Status post percutaneous cholecystostomy on 04/30/2022 Surgery team following, plan cholecystectomy in 1 month or so after improving nutrition status and better control of diabetes COVID-19 infection Asymptomatic at this point, no active treatment needed Paroxysmal AFib Continue amiodarone 200 mg b.i.d. Continue metoprolol Cardiology input appreciated, will need Holter monitoring outpatient, does not qualify for anticoagulation Preoperative cardiovascular examination Intermediate risk surgery per cardiology team, no obvious cardiac con traindication for surgery Type 2 diabetes with hyperglycemia Hold oral medications SSI, Lantus Diabetic diet DVT PPX eliquis full code reason for continued hospitalization:safe dispo (covid positive) Time Spent With Patient Time: Total time managing care of this patient today ____ minutes. Quality Stroke Does the patient have a stroke diagnosis?: No VTE Prior VTE?: No VTE Risk Level:: Medical - moderate - high VTE Device Contraindication: Treatment Not Indicated VTE Drug Contraindication: N/A - Med Ordered
[2022-05-12 11:21] LABS: Glucose, Whole Blood 192 mg/dL (60-115)
[2022-05-12] MEDS: Insulin Lispro 100 UNIT/ML 3 ML VIAL SUBCUT ×3 (12:50→21:58)
[2022-05-12] MEDS: cefTRIAXone sodium 1 GM in 0.9 % Sodium Chloride 50 ML IV (12:51)
[2022-05-12 16:37] LABS: Glucose, Whole Blood 245 mg/dL (60-115)
[2022-05-12 21:11] LABS: Glucose, Whole Blood 165 mg/dL (60-115)
[2022-05-12] MEDS: Insulin Glargine,Hum.rec.anlog 100 UNIT/ML 10 ML VIAL 40 UNIT SUBCUT (21:59)
[2022-05-13] VITALS (8 sets, daily range): BP systolic 142–154; BP diastolic 66–73; PULSE 52–98; RESP 17–18; TEMP 36.4–36.8; O2SAT 93–100
[2022-05-13] MEDS: Doxycycline Monohydrate 100 MG CAPSULE PO ×2 (06:22→17:18)
[2022-05-13 07:24] LABS: Glucose, Whole Blood 65 mg/dL (60-115)
--- NOTE | 2022-05-13 07:44 | PC.NURSE ---
Pt had an asymptomatic POC of 65 at 07:15. Per protocol, 15g of carbohydrates were given and POC was rechecked after 15 minutes and new value was 80. No further intervention needed at this time, will continue to monitor
[2022-05-13 07:46] LABS: Glucose, Whole Blood 80 mg/dL (60-115)
[2022-05-13] MEDS: Apixaban 5 MG TABLET PO ×2 (08:51→21:56)
[2022-05-13] MEDS: Folic Acid 1 MG TABLET PO (08:51)
[2022-05-13] MEDS: amLODIPine Besylate 10 MG TABLET PO (08:51)
[2022-05-13] MEDS: Amiodarone HCL 200 MG TABLET PO ×2 (08:51→21:56)
[2022-05-13] MEDS: allopurinoL 100 MG TABLET PO (08:51)
[2022-05-13] MEDS: Metoprolol Tartrate 50 MG TABLET PO ×2 (08:52→21:56)
[2022-05-13] MEDS: predniSONE 20 MG TABLET PO (08:52)
[2022-05-13] MEDS: Nystatin Powder 15 GM BOTTLE 1 APPL TOPICAL ×2 (08:52→17:13)
[2022-05-13] MEDS: Furosemide 40 MG TABLET PO (08:52)
--- NOTE | 2022-05-13 10:09 | P.PNIM_ITS ---
Subjective Subjective Date of Service: 05/13/22 Interval History: no acute complaints, doing well otherwise, off supplemental oxygen Physical Exam Vital Signs: Vital Signs: Last Vital Signs Temp 98.0 F 05/13/22 07:26 Pulse 60 05/13/22 07:26 Resp 17 05/13/22 08:19 BP 142/66 H 05/13/22 07:26 Pulse Ox 95 05/13/22 07:26 O2 Del Method 05/13/22 07:26 O2 Flow Rate 30 05/05/22 00:00 FiO2 55 05/01/22 09:00 BMI result Body Mass Index 26.9 Const: Other: Constitutional : Awake, interactive, not in distress Neck : Normal inspection, Supple Cardiovascular : RRR, no JVP, no lower extremity edema Respiratory : Fair bilateral air entry, no wheezes, no crackles Gastrointestinal: soft, lax, Normal bowel sounds, Non tender, cholecystostomy tube in place Skin : Warm, Dry Neurological : Alert & oriented x3, No focal deficit Objective Data Active Medications Acetaminophen (Acetaminophen 325 Mg Tablet) 650 mg PO Q4H PRN PRN Reason: fever Last Admin: 04/30/22 14:15 Dose: 650 mg Documented By: LAITH Allopurinol (Allopurinol 100 Mg Tablet) 100 mg PO DAILY [facility] Last Admin: 05/13/22 08:51 Dose: 100 mg Documented By: MADISON Amiodarone HCl (Amiodarone Hcl 200 Mg Tablet) 200 mg PO BID [facility] Last Admin: 05/13/22 08:51 Dose: 200 mg Documented By: MADISON Amlodipine Besylate (Amlodipine Besylate 10 Mg Tablet) 10 mg PO DAILY [facility]; Protocol Last Admin: 05/13/22 08:51 Dose: 10 mg Documented By: MADISON Apixaban (Apixaban 5 Mg Tablet) 5 mg PO BID [facility] Last Admin: 05/13/22 08:51 Dose: 5 mg Documented By: MADISON Doxycycline Monohydrate (Doxycycline Monohydrate 100 Mg Capsule) 100 mg PO Q12H [facility] Last Admin: 05/13/22 06:22 Dose: 100 mg Documented By: LOU Folic Acid (Folic Acid 1 Mg Tablet) 1 mg PO DAILY [facility] Last Admin: 05/13/22 08:51 Dose: 1 mg Documented By: MADISON Furosemide (Furosemide 40 Mg Tablet) 40 mg PO DAILY [facility]; Protocol Last Admin: 05/13/22 08:52 Dose: 40 mg Documented By: MADISON Guaifenesin/Dextromethorphan (Guaifenesin Dm 100/10/5 Ml 5 Ml Syrup) 5 ml PO Q4H PRN PRN Reason: cough Last Admin: 05/07/22 03:27 Dose: 5 ml Documented By: MARIVEL Ceftriaxone Sodium 1 gm/ (Sodium Chloride) 50 mls @ 100 mls/hr IV Q24H [facility] Last Infusion: 05/12/22 14:25 Dose: 0 mls/hr Documented By: MADISON Insulin Glargine (Insulin Glargine,Hum.Rec.Anlog 100 Unit/Ml 10 Ml Vial) 40 unit SUBCUT BEDTIME [facility] Last Admin: 05/12/22 21:59 Dose: 40 unit Documented By: LOU Insulin Human Lispro (Insulin Lispro 100 Unit/Ml 3 Ml Vial) 0 unit SUBCUT QIDACHS [facility]; Protocol Last Admin: 05/13/22 07:51 Dose: Not Given Documented By: MADISON Non-Admin Reason: No Insulin Coverage Metoprolol Tartrate (Metoprolol Tartrate 50 Mg Tablet) 50 mg PO BID [facility]; Protocol Last Admin: 05/13/22 08:52 Dose: 50 mg Documented By: MADISON Nystatin (Nystatin Powder 15 Gm Bottle) 1 appl TOPICAL TID [facility]; Protocol Last Admin: 05/13/22 08:52 Dose: 1 appl Documented By: MADISON Prednisone (Prednisone 20 Mg Tablet) 20 mg PO DAILY [facility] Last Admin: 05/13/22 08:52 Dose: 20 mg Documented By: MADISON Labs 05/08/22 06:17 05/08/22 06:17 Labs: Laboratory Results - last 24 hr 05/12/22 05/12/22 05/12/22 11:15 16:34 21:07 POC Glucose 192 H 245 H 165 H 05/13/22 05/13/22 07:19 07:42 POC Glucose 65 80 Assessment and Plan (1) Paroxysmal atrial fibrillation: Status: Acute (2) E coli bacteremia: Status: Acute (3) COVID-19 virus infection: Status: Acute Plan 77 years old male with PMH of paroxysmal AFib, diabetes, JASE, CKD 3, psoriasis among others who presented to the hospital after sustaining a fall. Found to have evidence of acute cholecystitis with septic shock on admission requiring ICU care. Acute hypoxic respiratory failure due to acute on chronic diastolic chf, resolved Seems secondary to atelectasis VS pleural effusion Repeated CXR showed mild improvement of effusion but persistent infiltrates continue doxycycline for antibiotics Continue incentive spirometry and Mucinex Continue po Lasix Continue physical therapy weaned off O2 Septic shock, resolved E coli bacteremia secondary to acute cholecystitis Blood cultures grew E coli Continue IV ceftriaxone to finish total of 2 weeks ending May 14 Acute cholecystitis Status post percutaneous cholecystostomy on 04/30/2022 Surgery team following, plan cholecystectomy in 1 month or so after improving nutrition status and better control of diabetes COVID-19 infection Asymptomatic at this point, no active treatment needed Paroxysmal AFib Continue amiodarone 200 mg b.i.d. Continue metoprolol Cardiology input appreciated, will need Holter monitoring outpatient, does not qualify for anticoagulation Preoperative cardiovascular examination Intermediate risk surgery per cardiology team, no obvious cardiac contraindication for surgery Type 2 diabetes with hyperglycemia Hold oral medications SSI, Lantus Diabetic diet DVT PPX eliquis full code reason for continued hospitalization:safe dispo (covid positive) Time Spent With Patient Time: Total time managing care of this patient today ____ minutes. Quality Stroke Does the patient have a stroke diagnosis?: No VTE Prior VTE?: No VTE Risk Level:: Medical - moderate - high VTE Device Contraindication: Treatment Not Indicated VTE Drug Contraindication: N/A - Med Ordered
[2022-05-13 11:16] LABS: Glucose, Whole Blood 215 mg/dL (60-115)
[2022-05-13] MEDS: cefTRIAXone sodium 1 GM in 0.9 % Sodium Chloride 50 ML IV (11:45)
[2022-05-13] MEDS: Insulin Lispro 100 UNIT/ML 3 ML VIAL SUBCUT ×3 (11:45→21:56)
[2022-05-13 17:07] LABS: Glucose, Whole Blood 268 mg/dL (60-115)
[2022-05-13 21:32] LABS: Glucose, Whole Blood 191 mg/dL (60-115)
[2022-05-13] MEDS: Insulin Glargine,Hum.rec.anlog 100 UNIT/ML 10 ML VIAL 40 UNIT SUBCUT (21:56)
--- NOTE | 2022-05-13 23:39 | PC.RT ---
Pt refused CPAP for NOC support.
[2022-05-14] VITALS: BP 133/66; PULSE 51; RESP 18; TEMP 36.6; O2SAT 97
[2022-05-14 04:00] VITALS: BP 157/73; PULSE 52; RESP 17; TEMP 36.6; O2SAT 97
[2022-05-14 05:07] VITALS: BMI 26.9
[2022-05-14] MEDS: Doxycycline Monohydrate 100 MG CAPSULE PO ×2 (06:24→16:46)
[2022-05-14 07:20] VITALS: BP 125/61; PULSE 53; RESP 20; TEMP 36.4; O2SAT 97
[2022-05-14 07:42] LABS: Glucose, Whole Blood 141 mg/dL (60-115)
[2022-05-14] MEDS: Apixaban 5 MG TABLET PO ×2 (09:00→20:30)
[2022-05-14] MEDS: Metoprolol Tartrate 50 MG TABLET PO ×2 (09:00→20:30)
[2022-05-14] MEDS: Amiodarone HCL 200 MG TABLET PO ×2 (09:00→20:30)
[2022-05-14] MEDS: predniSONE 20 MG TABLET PO (09:00)
[2022-05-14] MEDS: Folic Acid 1 MG TABLET PO (09:01)
[2022-05-14] MEDS: Furosemide 40 MG TABLET PO (09:01)
[2022-05-14] MEDS: allopurinoL 100 MG TABLET PO (09:01)
[2022-05-14] MEDS: amLODIPine Besylate 10 MG TABLET PO (09:01)
[2022-05-14] MEDS: Nystatin Powder 15 GM BOTTLE 1 APPL TOPICAL ×3 (09:04→20:31)
--- NOTE | 2022-05-14 10:01 | P.PNIM_ITS ---
Subjective Subjective Date of Service: 05/14/22 Interval History: no acute complaints, doing well otherwise, off supplemental oxygen Physical Exam Vital Signs: Vital Signs: Last Vital Signs Temp 97.6 F 05/14/22 07:20 Pulse 53 05/14/22 07:20 Resp 20 05/14/22 07:20 BP 125/61 05/14/22 07:20 Pulse Ox 97 05/14/22 07:20 O2 Del Method 05/14/22 07:20 O2 Flow Rate 30 05/05/22 00:00 FiO2 55 05/01/22 09:00 BMI result Body Mass Index 26.9 Const: Other: Constitutional : Awake, interactive, not in distress Neck : Normal inspection, Supple Cardiovascular : RRR, no JVP, no lower extremity edema Respiratory : Fair bilateral air entry, no wheezes, no crackles Gastrointestinal: soft, lax, Normal bowel sounds, Non tender, cholecystostomy tube in place Skin : Warm, Dry Neurological : Alert & oriented x3, No focal deficit Objective Data Active Medications Acetaminophen (Acetaminophen 325 Mg Tablet) 650 mg PO Q4H PRN PRN Reason: fever Last Admin: 04/30/22 14:15 Dose: 650 mg Documented By: LAITH Allopurinol (Allopurinol 100 Mg Tablet) 100 mg PO DAILY [facility] Last Admin: 05/14/22 09:01 Dose: 100 mg Documented By: TRUE Amiodarone HCl (Amiodarone Hcl 200 Mg Tablet) 200 mg PO BID [facility] Last Admin: 05/14/22 09:00 Dose: 200 mg Documented By: TRUE Amlodipine Besylate (Amlodipine Besylate 10 Mg Tablet) 10 mg PO DAILY [facility]; Protocol Last Admin: 05/14/22 09:01 Dose: 10 mg Documented By: TRUE Apixaban (Apixaban 5 Mg Tablet) 5 mg PO BID [facility] Last Admin: 05/14/22 09:00 Dose: 5 mg Documented By: TRUE Doxycycline Monohydrate (Doxycycline Monohydrate 100 Mg Capsule) 100 mg PO Q12H [facility] Last Admin: 05/14/22 06:24 Dose: 100 mg Documented By: LOU Folic Acid (Folic Acid 1 Mg Tablet) 1 mg PO DAILY [facility] Last Admin: 05/14/22 09:01 Dose: 1 mg Documented By: TRUE Furosemide (Furosemide 40 Mg Tablet) 40 mg PO DAILY [facility]; Protocol Last Admin: 05/14/22 09:01 Dose: 40 mg Documented By: TRUE Guaifenesin/Dextromethorphan (Guaifenesin Dm 100/10/5 Ml 5 Ml Syrup) 5 ml PO Q4H PRN PRN Reason: cough Last Admin: 05/07/22 03:27 Dose: 5 ml Documented By: MARIVEL Ceftriaxone Sodium 1 gm/ (Sodium Chloride) 50 mls @ 100 mls/hr IV Q24H [facility] Last Infusion: 05/13/22 13:31 Dose: 0 mls/hr Documented By: MADISON Insulin Glargine (Insulin Glargine,Hum.Rec.Anlog 100 Unit/Ml 10 Ml Vial) 40 unit SUBCUT BEDTIME [facility] Last Admin: 05/13/22 21:56 Dose: 40 unit Documented By: LOU Insulin Human Lispro (Insulin Lispro 100 Unit/Ml 3 Ml Vial) 0 unit SUBCUT QIDACHS [facility]; Protocol Last Admin: 05/14/22 07:42 Dose: Not Given Documented By: TRUE Non-Admin Reason: No Insulin Coverage Metoprolol Tartrate (Metoprolol Tartrate 50 Mg Tablet) 50 mg PO BID [facility]; Protocol Last Admin: 05/14/22 09:00 Dose: 50 mg Documented By: TRUE Nystatin (Nystatin Powder 15 Gm Bottle) 1 appl TOPICAL TID [facility]; Protocol Last Admin: 05/14/22 09:04 Dose: 1 appl Documented By: TRUE Prednisone (Prednisone 20 Mg Tablet) 20 mg PO DAILY [facility] Last Admin: 05/14/22 09:00 Dose: 20 mg Documented By: TRUE Labs 05/08/22 06:17 05/08/22 06:17 Labs: Laboratory Results - last 24 hr 05/13/22 05/13/22 05/13/22 11:03 17:02 21:29 POC Glucose 215 H 268 H 191 H 05/14/22 07:38 POC Glucose 141 H Assessment and Plan (1) Paroxysmal atrial fibrillation: Status: Acute (2) E coli bacteremia: Status: Acute (3) COVID-19 virus infection: Status: Acute Plan 77 years old male with PMH of paroxysmal AFib, diabetes, JASE, CKD 3, psoriasis among others who presented to the hospital after sustaining a fall. Found to have evidence of acute cholecystitis with septic shock on admission requiring ICU care. Acute hypoxic respiratory failure due to acute on chronic diastolic chf, resolved Seems secondary to atelectasis VS pleural effusion Repeated CXR showed mild improvement of effusion but persistent infiltrates continue doxycycline for antibiotics Continue incentive spirometry and Mucinex Continue po Lasix Continue physical therapy weaned off O2 Septic shock, resolved E coli bacteremia secondary to acute cholecystitis Blood cultures grew E coli Continue IV ceftriaxone to finish total of 2 weeks ending May 14 Acute cholecystitis Status post percutaneous cholecystostomy on 04/30/2022 Surgery team following, plan cholecystectomy in 1 month or so after improving nutrition status and better control of diabetes COVID-19 infection Asymptomatic at this point, no active treatment needed Paroxysmal AFib Continue amiodarone 200 mg b.i.d. Continue metoprolol Cardiology input appreciated, will need Holter monitoring outpatient, does not qualify for anticoagulation Preoperative cardiovascular examination Intermediate risk surgery per cardiology team, no obvious cardiac contraindication for surgery Type 2 diabetes with hyperglycemia Hold oral medications SSI, Lantus Diabetic diet DVT PPX eliquis full code reason for continued hospitalization:safe dispo (covid positive) Time Spent With Patient Time: Total time managing care of this patient today ____ minutes. Quality Stroke Does the patient have a stroke diagnosis?: No VTE Prior VTE?: No VTE Risk Level:: Medical - moderate - high VTE Device Contraindication: Treatment Not Indicated VTE Drug Contraindication: N/A - Med Ordered
[2022-05-14 10:56] VITALS: BP 126/59; PULSE 50; RESP 20; TEMP 36.6; O2SAT 96
[2022-05-14 11:06] LABS: Glucose, Whole Blood 220 mg/dL (60-115)
[2022-05-14] MEDS: cefTRIAXone sodium 1 GM in 0.9 % Sodium Chloride 50 ML IV (12:29)
[2022-05-14] MEDS: Insulin Lispro 100 UNIT/ML 3 ML VIAL SUBCUT ×3 (12:30→20:38)
[2022-05-14 15:18] VITALS: BP 125/60; PULSE 53; RESP 17; TEMP 36.6; O2SAT 95
[2022-05-14 15:42] LABS: Glucose, Whole Blood 235 mg/dL (60-115)
[2022-05-14 19:30] VITALS: BP 129/62; PULSE 53; RESP 17; TEMP 36.4; O2SAT 93
[2022-05-14 20:30] LABS: Glucose, Whole Blood 321 mg/dL (60-115)
[2022-05-14] MEDS: Insulin Glargine,Hum.rec.anlog 100 UNIT/ML 10 ML VIAL 40 UNIT SUBCUT (20:38)
--- NOTE | 2022-05-14 23:20 | PC.RT ---
Pt refused CPAP for NOC support
[2022-05-15] VITALS (10 sets, daily range): BP systolic 118–163; BP diastolic 56–74; PULSE 53–67; RESP 16–20; TEMP 36.3–37.3; O2SAT 93–98
[2022-05-15 07:27] LABS: Glucose, Whole Blood 73 mg/dL (60-115)
[2022-05-15] MEDS: allopurinoL 100 MG TABLET PO (08:07)
[2022-05-15] MEDS: predniSONE 20 MG TABLET PO (08:07)
[2022-05-15] MEDS: Folic Acid 1 MG TABLET PO (08:08)
[2022-05-15] MEDS: Metoprolol Tartrate 50 MG TABLET PO (08:08)
[2022-05-15] MEDS: Amiodarone HCL 200 MG TABLET PO ×2 (08:08→21:11)
[2022-05-15] MEDS: Furosemide 40 MG TABLET PO (08:08)
[2022-05-15] MEDS: Apixaban 5 MG TABLET PO ×2 (08:08→21:11)
[2022-05-15] MEDS: amLODIPine Besylate 10 MG TABLET PO (08:08)
[2022-05-15] MEDS: Nystatin Powder 15 GM BOTTLE 1 APPL TOPICAL ×2 (08:20→16:15)
--- NOTE | 2022-05-15 09:26 | HO.PM.IMPN ---
Subjective Subjective Date of Service: 05/15/22 Interval History: no acute complaints, doing well otherwise, off supplemental oxygen Physical Exam Vital Signs: Vital Signs: Last Vital Signs Temp 98.5 F 05/15/22 07:21 Pulse 67 05/15/22 07:21 Resp 19 05/15/22 08:03 BP 138/67 05/15/22 07:21 Pulse Ox 96 05/15/22 07:21 O2 Del Method 05/15/22 07:21 O2 Flow Rate 30 05/05/22 00:00 FiO2 55 05/01/22 09:00 BMI result Body Mass Index 26.9 Const: Other: Constitutional : Awake, interactive, not in distress Neck : Normal inspection, Supple Cardiovascular : RRR, no JVP, no lower extremity edema Respiratory : Fair bilateral air entry, no wheezes, no crackles Gastrointestinal: soft, lax, Normal bowel sounds, Non tender, cholecystostomy tube in place Skin : Warm, Dry Neurological : Alert & oriented x3, No focal deficit Objective Data Active Medications Acetaminophen (Acetaminophen 325 Mg Tablet) 650 mg PO Q4H PRN PRN Reason: fever Last Admin: 04/30/22 14:15 Dose: 650 mg Documented By: LAITH Allopurinol (Allopurinol 100 Mg Tablet) 100 mg PO DAILY [facility] Last Admin: 05/15/22 08:07 Dose: 100 mg Documented By: TRUE Amiodarone HCl (Amiodarone Hcl 200 Mg Tablet) 200 mg PO BID [facility] Last Admin: 05/15/22 08:08 Dose: 200 mg Documented By: TRUE Amlodipine Besylate (Amlodipine Besylate 10 Mg Tablet) 10 mg PO DAILY [facility]; Protocol Last Admin: 05/15/22 08:08 Dose: 10 mg Documented By: TRUE Apixaban (Apixaban 5 Mg Tablet) 5 mg PO BID [facility] Last Admin: 05/15/22 08:08 Dose: 5 mg Documented By: TRUE Folic Acid (Folic Acid 1 Mg Tablet) 1 mg PO DAILY [facility] Last Admin: 05/15/22 08:08 Dose: 1 mg Documented By: TRUE Furosemide (Furosemide 40 Mg Tablet) 40 mg PO DAILY [facility]; Protocol Last Admin: 05/15/22 08:08 Dose: 40 mg Documented By: TRUE Guaifenesin/Dextromethorphan (Guaifenesin Dm 100/10/5 Ml 5 Ml Syrup) 5 ml PO Q4H PRN PRN Reason: cough Last Admin: 05/07/22 03:27 Dose: 5 ml Documented By: MARIVEL Ceftriaxone Sodium 1 gm/ (Sodium Chloride) 50 mls @ 100 mls/hr IV Q24H [facility] Last Infusion: 05/14/22 14:48 Dose: 0 mls/hr Documented By: TRUE Insulin Glargine (Insulin Glargine,Hum.Rec.Anlog 100 Unit/Ml 10 Ml Vial) 40 unit SUBCUT BEDTIME [facility] Last Admin: 05/14/22 20:38 Dose: 40 unit Documented By: BRYSONOIC Insulin Human Lispro (Insulin Lispro 100 Unit/Ml 3 Ml Vial) 0 unit SUBCUT QIDACHS [facility]; Protocol Last Admin: 05/15/22 07:46 Dose: Not Given Documented By: TRUE Non-Admin Reason: No Insulin Coverage Metoprolol Tartrate (Metoprolol Tartrate 50 Mg Tablet) 50 mg PO BID [facility]; Protocol Last Admin: 05/15/22 08:08 Dose: 50 mg Documented By: TRUE Nystatin (Nystatin Powder 15 Gm Bottle) 1 appl TOPICAL TID [facility]; Protocol Last Admin: 05/15/22 08:20 Dose: 1 appl Documented By: TRUE Prednisone (Prednisone 20 Mg Tablet) 20 mg PO DAILY [facility] Last Admin: 05/15/22 08:07 Dose: 20 mg Documented By: TRUE Labs 05/08/22 06:17 05/08/22 06:17 Labs: Laboratory Results - last 24 hr 05/14/22 05/14/22 05/14/22 10:59 15:37 20:26 POC Glucose 220 H 235 H 321 H 05/15/22 07:20 POC Glucose 73 Assessment and Plan (1) Paroxysmal atrial fibrillation: Status: Acute (2) E coli bacteremia: Status: Acute (3) COVID-19 virus infection: Status: Acute Plan 77 years old male with PMH of paroxysmal AFib, diabetes, JASE, CKD 3, psoriasis among others who presented to the hospital after sustaining a fall. Found to have evidence of acute cholecystitis with septic shock on admission requiring ICU care. Acute hypoxic respiratory failure due to acute on chronic diastolic chf, resolved Seems secondary to atelectasis VS pleural effusion Repeated CXR showed mild improvement of effusion but persistent infiltrates continue doxycycline for antibiotics Continue incentive spirometry and Mucinex Continue po Lasix Continue physical therapy weaned off O2 Septic shock, resolved E coli bacteremia secondary to acute cholecystitis Blood cultures grew E coli Continue IV ceftriaxone to finish total of 2 weeks ending May 14 Acute cholecystitis Status post percutaneous cholecystostomy on 04/30/2022 Surgery team following, plan cholecystectomy in 1 month or so after improving nutrition status and better control of diabetes COVID-19 infection Asymptomatic at this point, no active treatment needed Paroxysmal AFib Continue amiodarone 200 mg b.i.d. Continue metoprolol Cardiology input appreciated, will need Holter monitoring outpatient, does not qualify for anticoagulation Preoperative cardiovascular examination Intermediate risk surgery per cardiology team, no obvious cardiac contraindication for surgery Type 2 diabetes with hyperglycemia Hold oral medications SSI, Lantus Diabetic diet DVT PPX eliquis full code reason for continued hospitalization:safe dispo (covid positive) Time Spent With Patient Time: Total time managing care of this patient today ____ minutes. Quality Stroke Does the patient have a stroke diagnosis?: No VTE Prior VTE?: No VTE Risk Level:: Medical - moderate - high VTE Device Contraindication: Treatment Not Indicated VTE Drug Contraindication: N/A - Med Ordered
[2022-05-15 12:18] LABS: Glucose, Whole Blood 149 mg/dL (60-115)
[2022-05-15 16:04] LABS: Glucose, Whole Blood 312 mg/dL (60-115)
[2022-05-15] MEDS: cefTRIAXone sodium 1 GM in 0.9 % Sodium Chloride 50 ML IV (16:15)
[2022-05-15] MEDS: Insulin Lispro 100 UNIT/ML 3 ML VIAL SUBCUT ×2 (16:16→21:12)
[2022-05-15 19:56] LABS: Glucose, Whole Blood 306 mg/dL (60-115)
[2022-05-15] MEDS: Insulin Glargine,Hum.rec.anlog 100 UNIT/ML 10 ML VIAL 40 UNIT SUBCUT (21:12)
[2022-05-16] VITALS (8 sets, daily range): BP systolic 109–148; BP diastolic 56–70; PULSE 51–72; RESP 17–20; TEMP 36.2–36.8; O2SAT 94–98
[2022-05-16 07:31] LABS: Glucose, Whole Blood 67 mg/dL (60-115)
[2022-05-16] MEDS: Apixaban 5 MG TABLET PO ×2 (07:52→20:04)
[2022-05-16] MEDS: Furosemide 40 MG TABLET PO (07:52)
[2022-05-16] MEDS: Amiodarone HCL 200 MG TABLET PO ×2 (07:52→20:04)
[2022-05-16] MEDS: Folic Acid 1 MG TABLET PO (07:52)
[2022-05-16] MEDS: Metoprolol Tartrate 50 MG TABLET PO ×2 (07:52→20:04)
[2022-05-16] MEDS: amLODIPine Besylate 10 MG TABLET PO (07:52)
[2022-05-16] MEDS: allopurinoL 100 MG TABLET PO (07:52)
[2022-05-16] MEDS: predniSONE 20 MG TABLET PO (07:52)
--- NOTE | 2022-05-16 10:15 | P.PNIM_ITS ---
Subjective Subjective Date of Service: 05/16/22 Interval History: no acute complaints, doing well otherwise, off supplemental oxygen Physical Exam Vital Signs: Vital Signs: Last Vital Signs Temp 98.1 F 05/16/22 07:48 Pulse 65 05/16/22 07:48 Resp 17 05/16/22 07:48 BP 148/68 H 05/16/22 07:48 Pulse Ox 95 05/16/22 07:48 O2 Del Method 05/16/22 07:48 O2 Flow Rate 30 05/05/22 00:00 FiO2 55 05/01/22 09:00 BMI result Body Mass Index 26.9 Const: Other: Constitutional : Awake, interactive, not in distress Neck : Normal inspection, Supple Cardiovascular : RRR, no JVP, no lower extremity edema Respiratory : Fair bilateral air entry, no wheezes, no crackles Gastrointestinal: soft, lax, Normal bowel sounds, Non tender, cholecystostomy tube in place Skin : Warm, Dry Neurological : Alert & oriented x3, No focal deficit Objective Data Active Medications Acetaminophen (Acetaminophen 325 Mg Tablet) 650 mg PO Q4H PRN PRN Reason: fever Last Admin: 04/30/22 14:15 Dose: 650 mg Documented By: LAITH Allopurinol (Allopurinol 100 Mg Tablet) 100 mg PO DAILY [facility] Last Admin: 05/16/22 07:52 Dose: 100 mg Documented By: SHOLA Amiodarone HCl (Amiodarone Hcl 200 Mg Tablet) 200 mg PO BID [facility] Last Admin: 05/16/22 07:52 Dose: 200 mg Documented By: SHOLA Amlodipine Besylate (Amlodipine Besylate 10 Mg Tablet) 10 mg PO DAILY [facility]; Protocol Last Admin: 05/16/22 07:52 Dose: 10 mg Documented By: SHOLA Apixaban (Apixaban 5 Mg Tablet) 5 mg PO BID [facility] Last Admin: 05/16/22 07:52 Dose: 5 mg Documented By: SHOLA Folic Acid (Folic Acid 1 Mg Tablet) 1 mg PO DAILY [facility] Last Admin: 05/16/22 07:52 Dose: 1 mg Documented By: SHOLA Furosemide (Furosemide 40 Mg Tablet) 40 mg PO DAILY [facility]; Protocol Last Admin: 05/16/22 07:52 Dose: 40 mg Documented By: SHOLA Guaifenesin/Dextromethorphan (Guaifenesin Dm 100/10/5 Ml 5 Ml Syrup) 5 ml PO Q4H PRN PRN Reason: cough Last Admin: 05/07/22 03:27 Dose: 5 ml Documented By: MARIVEL Ceftriaxone Sodium 1 gm/ (Sodium Chloride) 50 mls @ 100 mls/hr IV Q24H [facility] Last Infusion: 05/15/22 17:49 Dose: 0 mls/hr Documented By: TRUE Insulin Glargine (Insulin Glargine,Hum.Rec.Anlog 100 Unit/Ml 10 Ml Vial) 40 unit SUBCUT BEDTIME [facility] Last Admin: 05/15/22 21:12 Dose: 40 unit Documented By: ZOEY Insulin Human Lispro (Insulin Lispro 100 Unit/Ml 3 Ml Vial) 0 unit SUBCUT QIDACHS [facility]; Protocol Last Admin: 05/16/22 07:37 Dose: Not Given Documented By: SHOLA Non-Admin Reason: No Insulin Coverage Metoprolol Tartrate (Metoprolol Tartrate 50 Mg Tablet) 50 mg PO BID [facility]; Protocol Last Admin: 05/16/22 07:52 Dose: 50 mg Documented By: SHOLA Nystatin (Nystatin Powder 15 Gm Bottle) 1 appl TOPICAL TID [facility]; Protocol Last Admin: 05/15/22 22:18 Dose: Not Given Documented By: ZOEY Non-Admin Reason: Previously Administered Prednisone (Prednisone 20 Mg Tablet) 20 mg PO DAILY [facility] Last Admin: 05/16/22 07:52 Dose: 20 mg Documented By: SHOLA Labs 05/08/22 06:17 05/08/22 06:17 Labs: Laboratory Results - last 24 hr 05/15/22 05/15/22 05/15/22 11:00 16:01 19:53 POC Glucose 149 H 312 H 306 H 05/16/22 07:24 POC Glucose 67 Assessment and Plan (1) Paroxysmal atrial fibrillation: Status: Acute (2) E coli bacteremia: Status: Acute (3) COVID-19 virus infection: Status: Acute Plan 77 years old male with PMH of paroxysmal AFib, diabetes, JASE, CKD 3, psoriasis among others who presented to the hospital after sustaining a fall. Found to have evidence of acute cholecystitis with septic shock on admission requiring ICU care. Acute hypoxic respiratory failure due to acute on chronic diastolic chf, resolved Seems secondary to atelectasis VS pleural effusion Repeated CXR showed mild improvement of effusion but persistent infiltrates continue doxycycline for antibiotics Continue incentive spirometry and Mucinex Continue po Lasix Continue physical therapy weaned off O2 Septic shock, resolved E coli bacteremia secondary to acute cholecystitis Blood cultures grew E coli completed rocephin course Acute cholecystitis Status post percutaneous cholecystostomy on 04/30/2022 Surgery team following, plan cholecystectomy in 1 month or so after improving nutrition status and better control of diabetes COVID-19 infection Asymptomatic at this point, no active treatment needed Paroxysmal AFib Continue amiodarone 200 mg b.i.d. Continue metoprolol Cardiology input appreciated, will need Holter monitoring outpatient, does not qualify for anticoagulation Preoperative cardiovascular examination Intermediate risk surgery per cardiology team, no obvious cardiac contraindication for surgery Type 2 diabetes with hyperglycemia Hold oral medications SSI, Lantus Diabetic diet DVT PPX eliquis full code reason for continued hospitalization:safe dispo (covid positive), snf will take once covid negative or may 18, 2022 Time Spent With Patient Time: Total time managing care of this patient today ____ minutes. Quality Stroke Does the patient have a stroke diagnosis?: No VTE Prior VTE?: No VTE Risk Level:: Medical - moderate - high VTE Device Contraindication: Treatment Not Indicated VTE Drug Contraindication: N/A - Med Ordered
[2022-05-16 11:24] LABS: Glucose, Whole Blood 293 mg/dL (60-115)
[2022-05-16] MEDS: Insulin Lispro 100 UNIT/ML 3 ML VIAL SUBCUT ×3 (11:53→20:04)
[2022-05-16 11:56] LABS: COVID-19 Test Positive (Negative); IDNOW Serial# BCCEAD1C
[2022-05-16 16:09] LABS: Glucose, Whole Blood 271 mg/dL (60-115)
[2022-05-16 19:50] LABS: Glucose, Whole Blood 231 mg/dL (60-115)
[2022-05-16] MEDS: Insulin Glargine,Hum.rec.anlog 100 UNIT/ML 10 ML VIAL 40 UNIT SUBCUT (20:04)
[2022-05-17] VITALS (8 sets, daily range): BP systolic 118–157; BP diastolic 57–69; PULSE 52–68; RESP 20; TEMP 36.2–36.6; O2SAT 91–98; BMI 27.1
[2022-05-17 08:00] LABS: Glucose, Whole Blood 100 mg/dL (60-115)
[2022-05-17] MEDS: Metoprolol Tartrate 50 MG TABLET PO (08:29)
[2022-05-17] MEDS: Amiodarone HCL 200 MG TABLET PO ×2 (08:29→20:11)
[2022-05-17] MEDS: Apixaban 5 MG TABLET PO ×2 (08:29→20:11)
[2022-05-17] MEDS: amLODIPine Besylate 10 MG TABLET PO (08:29)
[2022-05-17] MEDS: allopurinoL 100 MG TABLET PO (08:29)
[2022-05-17] MEDS: Furosemide 40 MG TABLET PO (08:29)
[2022-05-17] MEDS: predniSONE 20 MG TABLET PO (08:30)
[2022-05-17] MEDS: Nystatin Powder 15 GM BOTTLE 1 APPL TOPICAL ×2 (08:30→16:11)
[2022-05-17] MEDS: Folic Acid 1 MG TABLET PO (08:30)
[2022-05-17] MEDS: Insulin Lispro 100 UNIT/ML 3 ML VIAL SUBCUT ×3 (11:37→20:11)
[2022-05-17 11:40] LABS: Glucose, Whole Blood 212 mg/dL (60-115)
--- NOTE | 2022-05-17 12:56 | PC.NURSE ---
0826. pt HR is 57-[address] Garza notified. all morning meds was allowed to administer.
--- NOTE | 2022-05-17 15:09 | HO.PM.IMPN ---
Subjective Subjective Date of Service: 05/17/22 Interval History: no acute complaints, doing well otherwise, off supplemental oxygen Physical Exam Vital Signs: Vital Signs: Last Vital Signs Temp 97.7 F 05/17/22 11:16 Pulse 54 05/17/22 11:16 Resp 20 05/17/22 11:16 BP 121/57 L 05/17/22 11:16 Pulse Ox 95 05/17/22 11:16 O2 Del Method 05/17/22 11:16 O2 Flow Rate 30 05/05/22 00:00 FiO2 55 05/01/22 09:00 BMI result Body Mass Index 27.1 Const: Other: Constitutional : Awake, interactive, not in distress Neck : Normal inspection, Supple Cardiovascular : RRR, no JVP, no lower extremity edema Respiratory : Fair bilateral air entry, no wheezes, no crackles Gastrointestinal: soft, lax, Normal bowel sounds, Non tender, cholecystostomy tube in place Skin : Warm, Dry Neurological : Alert & oriented x3, No focal deficit Objective Data Active Medications Acetaminophen (Acetaminophen 325 Mg Tablet) 650 mg PO Q4H PRN PRN Reason: fever Last Admin: 04/30/22 14:15 Dose: 650 mg Documented By: LAITH Allopurinol (Allopurinol 100 Mg Tablet) 100 mg PO DAILY [facility] Last Admin: 05/17/22 08:29 Dose: 100 mg Documented By: RAJWINDER Amiodarone HCl (Amiodarone Hcl 200 Mg Tablet) 200 mg PO BID [facility] Last Admin: 05/17/22 08:29 Dose: 200 mg Documented By: RAJWINDER Amlodipine Besylate (Amlodipine Besylate 10 Mg Tablet) 10 mg PO DAILY [facility]; Protocol Last Admin: 05/17/22 08:29 Dose: 10 mg Documented By: RAJWINDER Apixaban (Apixaban 5 Mg Tablet) 5 mg PO BID [facility] Last Admin: 05/17/22 08:29 Dose: 5 mg Documented By: RAJWINDER Folic Acid (Folic Acid 1 Mg Tablet) 1 mg PO DAILY [facility] Last Admin: 05/17/22 08:30 Dose: 1 mg Documented By: RAJWINDER Furosemide (Furosemide 40 Mg Tablet) 40 mg PO DAILY [facility]; Protocol Last Admin: 05/17/22 08:29 Dose: 40 mg Documented By: RAJWINDER Guaifenesin/Dextromethorphan (Guaifenesin Dm 100/10/5 Ml 5 Ml Syrup) 5 ml PO Q4H PRN PRN Reason: cough Last Admin: 05/07/22 03:27 Dose: 5 ml Documented By: MARIVEL Insulin Glargine (Insulin Glargine,Hum.Rec.Anlog 100 Unit/Ml 10 Ml Vial) 40 unit SUBCUT BEDTIME [facility] Last Admin: 05/16/22 20:04 Dose: 40 unit Documented By: ADAMS Insulin Human Lispro (Insulin Lispro 100 Unit/Ml 3 Ml Vial) 0 unit SUBCUT QIDACHS [facility]; Protocol Last Admin: 05/17/22 11:37 Dose: 4 unit Documented By: RAJWINDER Metoprolol Tartrate (Metoprolol Tartrate 50 Mg Tablet) 50 mg PO BID [facility]; Protocol Last Admin: 05/17/22 08:29 Dose: 50 mg Documented By: RAJWINDER Nystatin (Nystatin Powder 15 Gm Bottle) 1 appl TOPICAL TID [facility]; Protocol Last Admin: 05/17/22 08:30 Dose: 1 appl Documented By: RAJWINDER Prednisone (Prednisone 20 Mg Tablet) 20 mg PO DAILY [facility] Last Admin: 05/17/22 08:30 Dose: 20 mg Documented By: RAJWINDER Labs 05/08/22 06:17 05/08/22 06:17 Labs: Laboratory Results - last 24 hr 05/16/22 05/16/22 05/17/22 16:04 19:40 07:53 POC Glucose 271 H 231 H 100 05/17/22 11:22 POC Glucose 212 H Assessment and Plan (1) COVID-19 virus infection: Status: Acute (2) Acute respiratory failure with hypoxia: Status: Acute Plan 77 years old male with PMH of paroxysmal AFib, diabetes, JASE, CKD 3, psoriasis among others who presented to the hospital after sustaining a fall. Found to have evidence of acute cholecystitis with septic shock on admission requiring ICU care. Acute hypoxic respiratory failure due to acute on chronic diastolic chf, resolved Seems secondary to atelectasis VS pleural effusion Repeated CXR showed mild improvement of effusion but persistent infiltrates Finished doxycycline for antibiotics incentive spirometry and Mucinex po Lasix Continue physical therapy weaned off O2 Septic shock, resolved E coli bacteremia secondary to acute cholecystitis Blood cultures grew E coli completed rocephin course Acute cholecystitis Status post percutaneous cholecystostomy on 04/30/2022 Surgery team following, plan cholecystectomy in 1 month or so after improving nutrition status and better control of diabetes COVID-19 infection Asymptomatic at this point, no active treatment needed Paroxysmal AFib Continue amiodarone 200 mg b.i.d. Continue metoprolol Cardiology input appreciated, will need Holter monitoring outpatient, does not qualify for anticoagulation Preoperative cardiovascular examination Intermediate risk surgery per cardiology team, no obvious cardiac contraindication for surgery Type 2 diabetes with hyperglycemia Hold oral medications SSI, Lantus Diabetic diet DVT PPX eliquis full code reason for continued hospitalization:safe dispo (covid positive), snf will take once covid negative or may 18, 2022 Time Spent With Patient Time: Total time managing care of this patient today ____ minutes. Quality Stroke Does the patient have a stroke diagnosis?: No VTE Prior VTE?: No VTE Risk Level:: Medical - moderate - high VTE Device Contraindication: Treatment Not Indicated VTE Drug Contraindication: N/A - Med Ordered
--- NOTE | 2022-05-17 15:20 | MHC.CM.PN ---
Addendum entered by Gris Casillas 05/17/22 15:55: per executive services administrator at [facility], they are still able to offer a bed 05/18 and will let admissions know to start auth. Original Note: EMR REVIEWED PT WILL BE MEDICALLY CLEARED AND RECOVERED (COVID) 05/18. UPDATES SENT TO [facility] AND REQUEST TO START AUTH. CM WILL CONTINUE TO FOLLOW.
[2022-05-17 16:03] LABS: Glucose, Whole Blood 250 mg/dL (60-115)
[2022-05-17 20:09] LABS: Glucose, Whole Blood 287 mg/dL (60-115)
[2022-05-17] MEDS: Insulin Glargine,Hum.rec.anlog 100 UNIT/ML 10 ML VIAL 40 UNIT SUBCUT (20:11)
[2022-05-18] VITALS (7 sets, daily range): BP systolic 121–155; BP diastolic 55–75; PULSE 50–72; RESP 15–20; TEMP 36.1–36.8; O2SAT 96–99; BMI 27.1
[2022-05-18 07:26] LABS: Glucose, Whole Blood 90 mg/dL (60-115)
[2022-05-18] MEDS: predniSONE 20 MG TABLET PO (07:42)
[2022-05-18] MEDS: Furosemide 40 MG TABLET PO (07:42)
[2022-05-18] MEDS: Metoprolol Tartrate 50 MG TABLET PO (07:42)
[2022-05-18] MEDS: Amiodarone HCL 200 MG TABLET PO (07:42)
[2022-05-18] MEDS: Folic Acid 1 MG TABLET PO (07:42)
[2022-05-18] MEDS: allopurinoL 100 MG TABLET PO (07:42)
[2022-05-18] MEDS: Apixaban 5 MG TABLET PO (07:43)
[2022-05-18] MEDS: amLODIPine Besylate 10 MG TABLET PO (07:43)
[2022-05-18] MEDS: Nystatin Powder 15 GM BOTTLE 1 APPL TOPICAL ×2 (07:45→14:31)
[2022-05-18 11:03] LABS: Glucose, Whole Blood 143 mg/dL (60-115)
--- NOTE | 2022-05-18 11:10 | MHC.CM.PN ---
Addendum entered by Myriam Beyer 05/18/22 15:54: IMM 05/18/22 The Hospitalist appealed the STR denial from [facility]. [facility] has agreed to 7 days of STR. [facility] was called for transport. They declined to accept the trip r/t his insurance. 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 All dc info has been sent to the facility. Original Note: [facility] has denied authorization for STR @ [facility]. The patients dtr has been notified of the denial. CM oracle manager is looking into the appeal process. A VNA search is also in progress. A Message was left for dtr, [place] re appeal and Home care search.
--- NOTE | 2022-05-18 14:29 | P.PNIM_ITS ---
Subjective Subjective Date of Service: 05/18/22 Interval History: no acute complaints, doing well otherwise, off supplemental oxygen Physical Exam Vital Signs: Vital Signs: Last Vital Signs Temp 97.9 F 05/18/22 11:16 Pulse 68 05/18/22 11:16 Resp 20 05/18/22 11:16 BP 135/72 05/18/22 11:16 Pulse Ox 98 05/18/22 11:16 O2 Del Method 05/18/22 11:16 O2 Flow Rate 30 05/05/22 00:00 FiO2 55 05/01/22 09:00 BMI result Body Mass Index 27.1 Const: Other: Constitutional : Awake, interactive, not in distress Neck : Normal inspection, Supple Cardiovascular : RRR, no JVP, no lower extremity edema Respiratory : Fair bilateral air entry, no wheezes, no crackles Gastrointestinal: soft, lax, Normal bowel sounds, Non tender, cholecystostomy tube in place Skin : Warm, Dry Neurological : Alert & oriented x3, No focal deficit Objective Data Active Medications Acetaminophen (Acetaminophen 325 Mg Tablet) 650 mg PO Q4H PRN PRN Reason: fever Last Admin: 04/30/22 14:15 Dose: 650 mg Documented By: LAITH Allopurinol (Allopurinol 100 Mg Tablet) 100 mg PO DAILY [facility] Last Admin: 05/18/22 07:42 Dose: 100 mg Documented By: RAJWINDER Amiodarone HCl (Amiodarone Hcl 200 Mg Tablet) 200 mg PO BID [facility] Last Admin: 05/18/22 07:42 Dose: 200 mg Documented By: RAJWINDER Amlodipine Besylate (Amlodipine Besylate 10 Mg Tablet) 10 mg PO DAILY [facility]; Protocol Last Admin: 05/18/22 07:43 Dose: 10 mg Documented By: RAJWINDER Apixaban (Apixaban 5 Mg Tablet) 5 mg PO BID [facility] Last Admin: 05/18/22 07:43 Dose: 5 mg Documented By: RAJWINDER Folic Acid (Folic Acid 1 Mg Tablet) 1 mg PO DAILY [facility] Last Admin: 05/18/22 07:42 Dose: 1 mg Documented By: RAJWINDER Furosemide (Furosemide 40 Mg Tablet) 40 mg PO DAILY [facility]; Protocol Last Admin: 05/18/22 07:42 Dose: 40 mg Documented By: RAJWINDER Guaifenesin/Dextromethorphan (Guaifenesin Dm 100/10/5 Ml 5 Ml Syrup) 5 ml PO Q4H PRN PRN Reason: cough Last Admin: 05/07/22 03:27 Dose: 5 ml Documented By: MARIVEL Insulin Glargine (Insulin Glargine,Hum.Rec.Anlog 100 Unit/Ml 10 Ml Vial) 40 unit SUBCUT BEDTIME [facility] Last Admin: 05/17/22 20:11 Dose: 40 unit Documented By: ADAMS Insulin Human Lispro (Insulin Lispro 100 Unit/Ml 3 Ml Vial) 0 unit SUBCUT QIDACHS [facility]; Protocol Last Admin: 05/18/22 11:29 Dose: Not Given Documented By: RAJWINDER Non-Admin Reason: No Insulin Coverage Metoprolol Tartrate (Metoprolol Tartrate 50 Mg Tablet) 50 mg PO BID [facility]; Protocol Last Admin: 05/18/22 07:42 Dose: 50 mg Documented By: RAJWINDER Nystatin (Nystatin Powder 15 Gm Bottle) 1 appl TOPICAL TID [facility]; Protocol Last Admin: 05/18/22 07:45 Dose: 1 appl Documented By: RAJWINDER Prednisone (Prednisone 20 Mg Tablet) 20 mg PO DAILY [facility] Last Admin: 05/18/22 07:42 Dose: 20 mg Documented By: RAJWINDER Labs 05/08/22 06:17 05/08/22 06:17 Labs: Laboratory Results - last 24 hr 05/17/22 05/17/22 05/18/22 15:59 20:05 07:14 POC Glucose 250 H 287 H 90 05/18/22 10:56 POC Glucose 143 H Assessment and Plan (1) COVID-19 virus infection: Status: Acute (2) Acute respiratory failure with hypoxia: Status: Acute (3) E coli bacteremia: Status: Acute Plan 77 years old male with PMH of paroxysmal AFib, diabetes, JASE, CKD 3, psoriasis among others who presented to the hospital after sustaining a fall. Found to have evidence of acute cholecystitis with septic shock on admission requiring ICU care. Acute hypoxic respiratory failure due to acute on chronic diastolic chf, resolved Seems secondary to atelectasis VS pleural effusion Repeated CXR showed mild improvement of effusion but persistent infiltrates Finished doxycycline for antibiotics incentive spirometry and Mucinex po Lasix Continue physical therapy weaned off O2 Septic shock, resolved E coli bacteremia secondary to acute cholecystitis Blood cultures grew E coli completed rocephin course Acute cholecystitis Status post percutaneous cholecystostomy on 04/30/2022 Surgery team following, plan cholecystectomy in 1 month or so after improving nutrition status and better control of diabetes COVID-19 infection Asymptomatic at this point, no active treatment needed Paroxysmal AFib Continue amiodarone 200 mg b.i.d. Continue metoprolol Cardiology input appreciated, will need Holter monitoring outpatient, does not qualify for anticoagulation Preoperative cardiovascular examination Intermediate risk surgery per cardiology team, no obvious cardiac contraindication for surgery Type 2 diabetes with hyperglycemia Hold oral medications SSI, Lantus Diabetic diet DVT PPX eliquis full code reason for continued hospitalization:safe dispo (covid positive), pending SNF placement Time Spent With Patient Time: Total time managing care of this patient today ____ minutes. Quality Stroke Does the patient have a stroke diagnosis?: No VTE Prior VTE?: No VTE Risk Level:: Medical - moderate - high VTE Device Contraindication: Treatment Not Indicated VTE Drug Contraindication: N/A - Med Ordered
--- NOTE | 2022-05-18 15:48 | PM.DS ---
DS: Providers Provider Date of Service: 05/18/22 Date of admission: 04/28/22 18:25 Primary care physician: Unknown Physician Consults: 04/28/22 17:26 Consult to General Surgery Stat Consulting Provider: Lance Fontanez Reason for consultation: Acute cholecystitis Has provider been notified: Yes 05/01/22 09:12 Consult to Cardiology Routine Consulting Provider: Vince Valadez Reason for consultation: New onset AFib, preoperative risk assessment for cholecystectomy Has provider been notified: No DS: Diagnosis Discharge Diagnosis (1) COVID-19 virus infection: Status: Acute (2) Acute respiratory failure with hypoxia: Status: Acute (3) E coli bacteremia: Status: Acute DS: Summary Hospital Course Hospital Course: The patient has prolonged hospital stay, for full details plz return to EMR. Admission note HPI The patient is a 77-year-old male with a past medical history of Psoriatic arthritis on Enbrel,diabetes, chronic kidney disease stage 3, normal pressure hydrocephalus status post chest COMPLIANCE TESTER shunt placed 06/2017, obstructive sleep apnea, restless legs syndrome, erectile dysfunction, and ADHD.? He presented to the emergency room via EMS after sliding off the couch on night and was unable to get up off the floor?due to chronic back pain in generalized fatigue. According to his daughter she called EMS for a well check because the patient missed an appointment today.? It is suspected that the patient was on the ground for about 36 hours.? The patient denied any? known injury, head trauma, loss of consciousness, chest pain / shortness of breath, abdominal pain, nausea /vomiting / diarrhea. On arrival to the ER his blood pressure was 97/55, heart rate 167, temp 97.6 degrees, respiratory rate 18? with SpO2 97% on room air.? EMS had reported new onset AFib but while obtaining the initial EKG the patient?s rhythm broke and he was back in a sinus rhythm at a rate of 100.? Laboratory data was significant? for WBC 34.7, BUN 58, creatinine 2.56, lactic acid 3.3, alk-phos 263, total CPK 446,? trop 43.0, BNP 349, Tbili? 1.9.? Urinalysis showed 2+ protein, moderate blood, trace leukocyte esterase, 3-5 RBCs per high-power field, 0-5 wbc?s per high-power field, no bacteria seen. ? VBG showed a pH of 7.30, bicarb 19. Imaging:CT chest, abdomen/pelvis. Abdominal ultrasound findings consistent with acute cholecystitis. ED course: Patient received a total of?3.25 L of fluids,?2 g vancomycin, and 4.5 g of Zosyn. BP mildly improved to 101/67 after fluid resuscitation.?Repeat lactic 1.3, mild improvement in leukocytosis to 21.9. General surgery Dr. Fontanez was notified of hospital admission and recommended transfer to surgical service when patient is more stable for possible percutaneous drain placement. Though blood pressure improved while in the emergency room, the patient? is immune compromised and will be admitted to ICU for close monitoring. Hospital course The patient was admitted to the hospital for evaluation of septic shock. He went ICU for fluids and monitoring. Responded well to treatment as blood cultures came back positive for E coli. Started on IV ceftriaxone with a plan to finish total of 2 weeks of antibiotics. Source believed to be acute cholecystitis shown on CT scan and ultrasound.Status post percutaneous cholecystostomy on 04/30/2022. Surgery team follow the patient with plan cholecystectomy in 1 month or so after improving nutrition status and better control of diabetes. He will follow-up with Dr. Fontanez in the office. Developed acute hypoxic respiratory failure believed to be secondary to atelectasis and possible pleural effusion. Responded well to treatment with IV Lasix and antibiotics as he was weaned off oxygen and was able to participate in physical therapy with no reported dyspnea on exertion. To continue doxycycline for 3 more days. Noted to have new onset atrial fibrillation with rapid ventricular response at time of presentation. Evaluated by Cardiology team recommended starting amiodarone and holding on blood thinners as it was only 1 incident that total resolved with control of his infection with a plan to follow-up as outpatient for Holter monitoring and further evaluation of the need of anticoagulation. The patient has history of psoriatic arthritis. Enbrel was held during the hospital stay. He was started on small dose of prednisone for reported joint pain is lower extremities and inability to participate with physical therapy. He showed significant improvement. start Enbrel next week and discontinue Cholchicine. The patient tested positive for covid. remained asymptomatic but had to stay inpatient pending safe discharge plan. improved phyiscal activity with physical therapy. Start amiodarone 200 mg once daily. Discontinue colchicine as it contradict Amiodarone you can restart Enbrel next week To follow-up with geoscience professor Dr. Valadez as outpatient, please call to arrange for visit for Holter monitoring and decision of need of blood thinners To follow-up with Dr. Fontanez to arrange for surgical intervention as outpatient Time Spent with Patient Time attestation: Total time managing care of this patient today ____ minutes. Discharge coordination time: Greater than 30 minutes Quality: Safe Use of Opioids Does Pt have an Active Cancer Diagnosis on the Problem List?: No Quality: Stroke Does the patient have a stroke diagnosis?: No Physical Exam Vital Signs: Vital Signs: Last Vital Signs Temp 97.9 F 05/18/22 11:16 Pulse 68 05/18/22 11:16 Resp 20 05/18/22 11:16 BP 135/72 05/18/22 11:16 Pulse Ox 98 05/18/22 11:16 O2 Del Method 05/18/22 11:16 O2 Flow Rate 30 05/05/22 00:00 FiO2 55 05/01/22 09:00 BMI result Body Mass Index 27.1 Const: Other: Constitutional : Awake, interactive, not in distress Neck : Normal inspection, Supple Cardiovascular : RRR, no JVP, no lower extremity edema Respiratory : Fair bilateral air entry, no wheezes, no crackles Gastrointestinal: soft, lax, Normal bowel sounds, Non tender, cholecystostomy tube in place Skin : Warm, Dry Neurological : Alert & oriented x3, No focal deficit DS: Data Data Completed and Pending Labs on day of discharge: Laboratory Results - last 24 hr 05/17/22 05/17/22 05/18/22 15:59 20:05 07:14 POC Glucose 250 H 287 H 90 05/18/22 10:56 POC Glucose 143 H Imaging Chest x-ray: Radiologist's impression: ITS Impressions Chest X-Ray 04/28/22 13:50 IMPRESSION: No acute cardiopulmonary process. Abdomen/Pelvis CT 04/28/22 16:30 IMPRESSION: 1. Cholelithiasis with an inflamed, distended gallbladder, most consistent with acute cholecystitis. 2. Dependent atelectasis in the lower lobes. Otherwise, no acute pulmonary findings. 3. Cardiomegaly. 4. Severe colonic diverticulosis without evidence of acute diverticulitis. 5. Bilateral nonobstructing renal calculi. Chest CT 04/28/22 16:30 IMPRESSION: 1. Cholelithiasis with an inflamed, distended gallbladder, most consistent with acute cholecystitis. 2. Dependent atelectasis in the lower lobes. Otherwise, no acute pulmonary findings. 3. Cardiomegaly. 4. Severe colonic diverticulosis without evidence of acute diverticulitis. 5. Bilateral nonobstructing renal calculi. Abdomen Ultrasound 04/28/22 18:23 IMPRESSION: The findings on CT as well as is ultrasound of both consistent with acute cholecystitis. Chest X-Ray 04/29/22 13:34 IMPRESSION: No acute cardiopulmonary process. Abscess Drainage CT 04/30/22 16:44 IMPRESSION: Successful CT fluoroscopy-guided cholecystostomy and drainage catheter placement without any complications. Chest X-Ray 05/02/22 06:35 IMPRESSION: * Small bilateral pleural effusions with accompanying airspace opacities, more pronounced on the left * Diffuse bronchial wall thickening. Chest X-Ray 05/04/22 08:41 IMPRESSION: Small bilateral pleural effusions. The left effusion is slightly decreased from prior. Persistent left basilar airspace opacities. Mild perihilar opacities are nonspecific. This could be associated with mild edema. Discharge Plan Discharge Anticipated Discharge Date/Time: 05/18/22 15:43 Patient Disposition: er [facility] Discharge Diagnosis: Septic shock from E coli bacteremia secondary to acute cholecystitis Acute hypoxic respiratory failure New onset atrial fibrillation Covid 19 infection Referrals: [facility] [Outside] - 1 Week Physician,Prabhu Enriquez [Primary Care Provider] - 1 Week Lance Fontanez MD [Physician] - 1 Week Discharge Medications: New prednisone 20 mg Tablet 20 mg PO DAILY Qty: 3 0RF amiodarone 200 mg tablet 200 mg PO DAILY Qty: 30 0RF Continued Enbrel SureClick 50 mg/mL (1 mL) pen injector 50 mg subcut QWEEK Qty: 12 1RF glipizide 10 mg tablet extended release 24hr 1 tab PO BID insulin glargine [Lantus Solostar U-100 Insulin] 100 unit/mL (3 mL) insulin pen 40 unit subcut BEDTIME allopurinol 100 mg tablet 100 mg PO DAILY folic acid 1 mg tablet 1 mg PO DAILY amlodipine 10 mg tablet 10 mg PO DAILY atorvastatin 20 mg tablet 20 mg PO DAILY furosemide 40 mg tablet 40 mg PO DAILY metformin 500 mg tablet 1,000 mg PO BID metoprolol tartrate 50 mg tablet 50 mg PO BID cholecalciferol (vitamin D3) 125 mcg (5,000 unit) capsule 125 mcg PO DAILY cyclobenzaprine 5 mg tablet 5 mg PO BEDTIME PRN (Reason: muscle spasm) Qty: 10 1RF Discontinued colchicine 0.6 mg tablet 0.6 mg PO DAILY Qty: 90 1RF Rx Instructions: take 2 tabs by mouth once daily for 3 days followed by 1 tab daily Discharge Orders: Discharge Order (Routine); Ordered 05/18/22 Ordered By: Amos Garza Diet: Advance to usual diet Activity on Discharge: As tolerated Stand Alone Forms: Patient Portal Discharge page Activity Restrictions/Additional Instructions: Cholecystostomy to drainage bulb. Record output in CCs Q24 hours & bring to Dr. Fontanez's office in f/u; OK to reconsititute drain ad neil. Call Dr. Fontanez with drain questions. Please call Dr. Fontanez at [phone]. Pt needs to see PCP and/or dietitian re: diabetes & protein malnutrition Patient needs cardiac clearance regarding his cardiomegaly & possible cholecystectomy. Care Plan Goals: Read below Health Concerns: Read below Plan of Treatment: Read below Assessment: You were admitted to the hospital for evaluation for increased weakness and low blood pressure with evidence of septic shock on admission requiring ICU placement. Treated with broad-spectrum IV antibiotics with good response as your gallbladder was found to be infected. It was drained by radiologist as you were evaluated by surgical team recommended outpatient follow-up for surgical arrangement to remove the gallbladder. You develop difficulty breathing with increased oxygen requirement from fluid overload and possible pneumonia treated with IV Lasix and antibiotic with good response as you were taking of the oxygen and start physical therapy with recommendation for short-term rehab. Start amiodarone 200 mg once daily. Discontinue colchicine as it contradict Amiodarone you can restart Enbrel next week To follow-up with geoscience professor Dr. Valadez as outpatient, please call to arrange for visit for Holter monitoring and decision of need of blood thinners To follow-up with Dr. Fontanez to arrange for surgical intervention as outpatient
[2022-05-18 16:39] LABS: Glucose, Whole Blood 348 mg/dL (60-115)
[2022-05-18] MEDS: Insulin Lispro 100 UNIT/ML 3 ML VIAL SUBCUT (16:44)
== END 2022-05-18 17:15 | disposition skilled nursing facility (03) | DRG 871 ==
LOC: HO.ED 16:26 → HO.EDOVER 18:45 → HO.ICU 19:43 → HO.IMC 04-29 16:15 → HO.ICU 04-29 16:52 → HO.IMC 05-01 13:47
PROVIDERS: Internal Medicine; Nurse Practitioner Family; Physician Assistant; Radiology Diagnostic Radiology; Surgery; Admitting Provider Internal Medicine Pulmonary Disease; Emergency Provider Internal Medicine; Visit Provider Student in an Organized Health Care Education/Training Program
PROC: 0F9430Z Drainage of Gallbladder with Drainage Device, Percutaneous Approach (ICD-10-PCS; principal; 2022-04-30 14:30)
DX: A41.51 Sepsis due to Escherichia coli [E. coli] (principal); I50.33 Acute on chronic diastolic (congestive) heart failure; R65.21 Severe sepsis with septic shock; U07.1 COVID-19; J96.01 Acute respiratory failure with hypoxia; K80.00 Calculus of gallbladder with acute cholecystitis without obstruction; E44.0 Moderate protein-calorie malnutrition; G91.2 (Idiopathic) normal pressure hydrocephalus; J98.11 Atelectasis; I13.0 Hypertensive heart and chronic kidney disease with heart failure and stage 1 through stage 4 chronic kidney disease, or unspecified chronic kidney disease; D84.821 Immunodeficiency due to drugs; N17.9 Acute kidney failure, unspecified; M62.82 Rhabdomyolysis; N18.30 Chronic kidney disease, stage 3 unspecified; E11.22 Type 2 diabetes mellitus with diabetic chronic kidney disease; E11.65 Type 2 diabetes mellitus with hyperglycemia; K57.30 Diverticulosis of large intestine without perforation or abscess without bleeding; E86.0 Dehydration; Z68.27 Body mass index [BMI] 27.0-27.9, adult; M54.9 Dorsalgia, unspecified; I48.0 Paroxysmal atrial fibrillation; B96.20 Unspecified Escherichia coli [E. coli] as the cause of diseases classified elsewhere; E11.319 Type 2 diabetes mellitus with unspecified diabetic retinopathy without macular edema; G47.33 Obstructive sleep apnea (adult) (pediatric); L40.50 Arthropathic psoriasis, unspecified; Z98.2 Presence of cerebrospinal fluid drainage device; Z79.4 Long term (current) use of insulin; Z79.84 Long term (current) use of oral hypoglycemic drugs; Z79.620 Long term (current) use of immunosuppressive biologic; Z79.899 Other long term (current) drug therapy
CPT/HCPCS: 36415; 71045; 71250; 74176; 75989; 76705; 80048; 80053; 80076; 81001; 82550; 82803; 82947; 83036; 83605; 83690; 83735; 83880; 84100; 84134; 84484; 85007; 85025; 85027; 85610; 87040; 87070; 87073; 87076; 87077; 87186; 87205; 87502; 87635; 93005; 93306; 94660; 97110; 97112; 97116; 97162; 97166; 97530; 97535; 99285; C1729; C1758; C1769; J0282; J0283; J0696; J1643; J1940; J2543; J3370; J3475; P9047

== ENCOUNTER 2022-06-04 08:12 | Outpatient (REF) | payer MEDICARE, SELFPAY ==
[2022-06-04 08:29] LABS: MANUAL DIFF FLAG NO
[2022-06-04 08:40] LABS: Basophils Absolute Auto 0.1 X10*3/uL (0.0-0.2); Basophils Percent Auto 0.6 % (0-2); Eosinophils Absolute Auto 0.3 X10*3/uL (0.0-0.4); Hematocrit 43.6 % (42.0-52.0); Hemoglobin 14.3 g/dl (14.0-18.0); Imm Gran Abs Auto 0.14 X10*3/uL (0.00-0.03); Imm Gran Pct Auto 1.6 % (0.0-0.4); Lymphocytes Absolute Auto 1.3 X10*3/uL (1.2-4.9); Mean Corpuscular HGB Conc 32.8 g/dl (31.0-36.0); Mean Corpuscular Hemoglobin 30.8 pg (27.0-33.0); Mean Platelet Volume 9.5 fL (9.4-12.4); Monocytes Absolute Auto 0.8 X10*3/uL (0.1-1.2); Monocytes Percent Auto 9.8 % (2-11); Neutrophils Absolute Auto 5.9 x10*3/uL (2.0-8.3); Platelet Count 192 X10*3/uL (160-400); Red Blood Count 4.64 X10*6/uL (4.60-5.80); Red Cell Distribution Width 13.7 % (11.0-16.0); White Blood Count 8.6 X10*3/uL (4.8-10.8)
[2022-06-04 08:48] LABS: Estimated Average Glucose 206 mg/dL; Hemoglobin A1c % 8.8 %
[2022-06-04 09:23] LABS: Alanine Aminotransferase 26 U/L (0-40); Albumin Level 3.5 g/dL (3.5-5.0); Alkaline Phosphatase 117 U/L (39-117); Anion Gap 14 (12-20); Aspartate Amino Transferase 13 U/L (5-37); Bilirubin Total 0.6 mg/dL (0.0-1.0); Blood Urea Nitrogen 17 mg/dL (9-16); C Reactive Protein 2.62 mg/dL (< or = 0.50); Calcium 8.8 mg/dL (8.4-10.2); Carbon Dioxide 28 mmol/L (22-29); Chloride 102 mmol/L (96-108); Estimated Glomerular Filt Rate > 60; Glucose Random 119 mg/dL (60-115); Potassium 4.8 mmol/L (3.3-5.1); Sodium 139 mmol/L (135-145); Total Protein 6.4 g/dL (6.5-8.0); Uric Acid 6.4 mg/dL (3.4-7.0)
[2022-06-04 09:47] LABS: Erythrocyte Sedimentation Rate 30 MM/HR (0-15)
== END 2022-06-04 08:13 | disposition home or self-care (01) ==
LOC: HO.LAB 08:12
PROVIDERS: Student in an Organized Health Care Education/Training Program; PCP Internal Medicine; Visit Provider Surgery
DX: L40.50 Arthropathic psoriasis, unspecified (principal); M10.9 Gout, unspecified; E11.9 Type 2 diabetes mellitus without complications; E46 Unspecified protein-calorie malnutrition; G47.33 Obstructive sleep apnea (adult) (pediatric); G91.2 (Idiopathic) normal pressure hydrocephalus; I48.91 Unspecified atrial fibrillation; I51.7 Cardiomegaly; K80.00 Calculus of gallbladder with acute cholecystitis without obstruction; Z79.01 Long term (current) use of anticoagulants; Z79.631 Long term (current) use of antimetabolite agent
CPT/HCPCS: 36415; 80053; 83036; 84134; 84550; 85025; 85652; 86140; 99212

== ENCOUNTER → 2022-06-12 14:01 | Outpatient (BNVA) | payer MEDICARE, SELFPAY | PROVIDERS: PCP Internal Medicine; Visit Provider Nurse Practitioner Family | DX: Z01.810 Encounter for preprocedural cardiovascular examination (principal); I48.91 Unspecified atrial fibrillation; R06.02 Shortness of breath | CPT/HCPCS: 99212 ==

== ENCOUNTER → 2022-06-18 08:26 | Outpatient (BNVA) | payer MEDICARE, SELFPAY | PROVIDERS: PCP Internal Medicine; Visit Provider Surgery | DX: K80.00 Calculus of gallbladder with acute cholecystitis without obstruction (principal); G91.2 (Idiopathic) normal pressure hydrocephalus; G47.33 Obstructive sleep apnea (adult) (pediatric); E11.65 Type 2 diabetes mellitus with hyperglycemia; R54 Age-related physical debility; I51.7 Cardiomegaly; Z79.01 Long term (current) use of anticoagulants; Z79.631 Long term (current) use of antimetabolite agent | CPT/HCPCS: 99212 ==

== ENCOUNTER → 2022-06-26 08:21 | Outpatient (REF) | payer MEDICARE, SELFPAY ==
--- NOTE | ~2022-06-26 | NM_ITS ---
Lexiscan Myocardial perfusion study Indication: Agent evaluation, shortness of breath, assess for coronary disease and ischemia Technique: The patient was brought in for a Lexiscan perfusion study on 06/26/2022 and was injected 0.4 mg of Lexiscan intravenously. Within a minute of this injection 30 mCi of sestamibi was given intravenously. Images were obtained using the SPECT gamma camera interlaced with the gating device. Images were obtained in supine position. Resting perfusion study was performed on 07/02/2022. Patient was administered 30 mCi of sestamibi intravenously at rest. Images were then obtained in supine position. Images were processed with the software and compared side to side in short axis, horizontal long axis and vertical long axis views. Total DLP 154mGy-cm. Findings: Raw acquisition reviewed. Arms by the patient's side. The stress perfusion study showed diminished tracer uptake along the inferolateral wall. There is improvement with CT attenuation correction suggestive of diaphragmatic attenuation artifact. The gated study shows normal LV systolic function with calculated LVEF of 60%. LV cavity is normal in size. The gated study shows normal wall thickening and contraction of segments. Resting study shows no significant perfusion abnormality. Gating at rest reveals normal wall motion with ejection fraction at 68%. The findings are consistent with no clear reversible or fixed perfusion defects. PR/PR cardiolite stress test Impression: 1. Myocardial perfusion imaging study shows probably normal myocardial perfusion. Reversible inferolateral defect suspected to be from diaphragmatic attenuation artifact. 2. Gated LVEF is 60% during stress and 68% during rest. 3. Transient ischemic dilatation not present. EKG component of the test reported separately.
--- NOTE | 2022-06-26 08:23 | CA_ITS ---
Acquisition Time: 2022-06-26 08:34:43 Total Exercise Time: 00:02:00 Test Indications: AFIB Medications: SEE H Protocol: LEXISCAN Max HR: 075 BPM 52% of Pred: 144 BPM Max BP: 116/060 mmHG Max Work Load: 1.0 METS Pharmacological stress test with Lexiscan injection while sitting and kicking his legs, without anginal symptoms, without arrythmia, with normotensive response, with non-diagnositic EKG. Nuclear images pending. Test reviewed with Dr. Gee. Referred By: Lisa Jain Overread By: LISA JAIN
--- NOTE | 2022-06-26 08:23 | HM_ITS ---
* Total monitoring time about 3 days. * Underlying rhythm is sinus. Average ventricular rate 71/Min. Range 53 to 98/Min. * Rare PACs and PVCs. * No significant pauses or AV blocks. * Patient Marker used once in association with sinus rhythm. No events in diary. MTDD
== END ==
LOC: HO.CARD 08:21
PROVIDERS: Visit Provider Nurse Practitioner Family
DX: Z01.810 Encounter for preprocedural cardiovascular examination (principal); I48.0 Paroxysmal atrial fibrillation; I48.91 Unspecified atrial fibrillation; R06.02 Shortness of breath; E11.9 Type 2 diabetes mellitus without complications; R54 Age-related physical debility
CPT/HCPCS: 78452; 93017; 93242; A9500; J0280; J2785

== ENCOUNTER 2022-07-19 14:22 | Inpatient (IN) | payer MEDICARE, OTHER, SELFPAY ==
--- NOTE | ~2022-07-19 | NM_ITS ---
EXAMINATION: Hepatobiliary scan without pharmacy. CLINICAL INDICATION: Acute cholecystitis. COMPARISON: Ultrasound abdomen limited 07/19/2022. TECHNIQUE: Following intravenous administration of 5 mCi of 99m technetium mebrofenin, imaging of the right upper quadrant was obtained up to 60 minutes. Delayed images were obtained at 2 hours and 4 hours. FINDINGS: There is normal hepatic uptake without focal defects or enlargement. Visualization of common bile duct by 17 minutes. Gallbladder is not visualized. Delayed images obtained at 2 hours and 4 hours reveal normal activity in the small bowel with patent CBD. The gallbladder is not visualized up to 4 hours. NM/NM hepatobiliary wo pharm IMPRESSION: Nonvisualization of gallbladder up to 4 hours consistent with cystic duct obstruction.
--- NOTE | ~2022-07-19 | CT_ITS ---
EXAMINATION: CT ABDOMEN AND PELVIS WITH CONTRAST CLINICAL INFORMATION: Abdominal pain. Elevated liver function tests. COMPARISON: CT 04/28/2022. Correlation with ultrasound 07/19/2022 TECHNIQUE: Multidetector volumetric images were obtained from the superior aspect of the liver through the pubic symphysis following administration 85 mL of Omnipaque 350 intravenous contrast. Sagittal and coronal reformatted images were obtained on the technologist's workstation. Oral contrast: No This CT examination was performed using dose optimization techniques as appropriate, variously including the following: *Automated exposure control *Adjustment of mA and/or kV according to patient size (this includes techniques or standardized protocols for targeted exams where dose is matched to indication/reason for exam; i.e. extremities or head) *Use of iterative reconstruction technique DLP: 629 mGy-cm FINDINGS: LUNG BASES: Right basilar dependent atelectasis. LIVER, GALLBLADDER, AND BILIARY TREE: The liver is normal in size, shape, and attenuation. No focal hepatic lesion or biliary ductal dilatation is present. Redemonstrated is cholelithiasis, with a dominant 2.5 cm gallstone. The gallbladder is distended containing fluid. Gallbladder wall appears thickened. There is pericholecystic edema/fluid. Findings are concerning for acute cholecystitis. PANCREAS: Unremarkable. No acute inflammatory changes. SPLEEN: Unremarkable. ADRENAL GLANDS: Unremarkable. KIDNEYS AND URETERS: Mild bilateral renal cortical atrophy. Redemonstrated are multiple nonobstructing bilateral renal calculi. This includes a 6 mm nonobstructing calculus in the right renal upper pole. No ureteral calculi. No hydronephrosis. Redemonstrated are bilateral low-attenuation cystic-appearing lesions. This includes exophytic cystic lesions arising from the left renal lower pole. No recommended imaging follow-up for these lesions. BLADDER: Unremarkable. GASTROINTESTINAL TRACT: Stomach is nondistended. Redemonstrated is small duodenal diverticulum. No small or large bowel obstruction. Severe colonic diverticulosis. No findings to suggest diverticulitis. Normal appendix. No free fluid. No free air. TEAM [employer]OR[employer] SALES [employer]OCIATE shunt tubing terminates in the right mid abdomen. ABDOMINAL WALL: No significant hernia seen. LYMPH NODES: No adenopathy. VASCULAR: No aortic aneurysmal dilatation. The splenic artery vascular calcification. PELVIC VISCERA: Prostate measures 4.8 cm transverse. OSSEOUS STRUCTURES: Multilevel moderate-severe lumbar spondylosis. No acute osseous abnormality. Mild bilateral hip and SI joint arthritis. Scoliotic curvature of the spine. CT/CT abdomen pelvis w IV con IMPRESSION: 1. Cholelithiasis, gallbladder wall thickening, pericholecystic edema/fluid. Findings are suspicious for acute cholecystitis. An ultrasound of the abdomen has already been obtained, with sonographic findings reported as consistent with acute cholecystitis. See ultrasound report. 2. Severe colonic diverticulosis without evidence of diverticulitis. 3. Bilateral nonobstructing renal calculi. Fleischner guidelines were followed.
--- NOTE | ~2022-07-19 | XR_ITS ---
EXAMINATION: XR CHEST CLINICAL INFORMATION: ESCALATOR ATTENDANT shunt in place. Weakness. COMPARISON: 05/04/2022 TECHNIQUE: Normal symmetric lung volumes. No parenchymal consolidation. No pleural effusion. No pneumothorax. Cardiomediastinal silhouette and pulmonary vascularity are within normal limits. No acute osseous abnormalities. FINDINGS: No significant abnormality is noted involving the heart, lungs, mediastinum, bony thorax or soft tissues. Ventriculoperitoneal shunt catheter tubing projects over the right hemithorax. XR/XR chest 2V IMPRESSION: Unremarkable examination.
--- NOTE | ~2022-07-19 | US_ITS ---
EXAMINATION: US ABDOMEN LIMITED CLINICAL INFORMATION: Elevated LFTs. Known cholecystitis.. COMPARISON: Ultrasound abdomen 04/28/2022 CT guided cholecystotomy 04/30/2022 TECHNIQUE: Real-time imaging of the gallbladder, CBD, pancreas as per request. FINDINGS: PANCREAS: Normal. GALLBLADDER: Gallstones redemonstrated. Echogenic bile present. Fluid in the gallbladder wall and pericholecystic fluid. Gallbladder wall measures 0.3 cm. Positive ultrasound Hill's sign. COMMON BILE DUCT: Normal in caliber measuring 0.3 cm in diameter. FREE FLUID: None. US/US abdomen limited IMPRESSION: Cholelithiasis. Fluid in the gallbladder wall and pericholecystic fluid. Positive ultrasound Hill's sign. Findings consistent with acute cholecystitis.
--- NOTE | ~2022-07-19 | CT_ITS ---
EXAMINATION: NONCONTRAST HEAD CT NONCONTRAST CERVICAL SPINE CT INDICATION INFORMATION: Weakness. COMPARISON: CT head dated 04/29/2017 TECHNIQUE: Separate noncontrast CT examinations of the head and cervical spine were performed. Coronal and sagittal images were created for each examination at the technologist workstation. This CT examination was performed using dose optimization techniques as appropriate, variously including the following: *Automated exposure control *Adjustment of mA and/or kV according to patient size (this includes techniques or standardized protocols for targeted exams where dose is matched to indication/reason for exam; i.e. extremities or head) *Use of iterative reconstruction technique DLP: 1300 mGy-cm FINDINGS: Head: There is no evidence of acute intracranial hemorrhage or territorial infarction. No abnormal mass effect or midline shift is seen. Uriarte to white matter differentiation is well preserved. No extra-axial fluid collections are identified. Ventriculoperitoneal shunt catheter terminates in the frontal horn of the right lateral ventricle stable moderate dilatation of the lateral ventricles, stable in caliber from the previous exam measuring up to 5.7 cm transversely at the frontal horns. This is disproportionate to the degree of sulcal/fissural prominence. No significant volume loss. Patchy periventricular and deep white matter hypoattenuation is consistent with mild small vessel ischemic changes. No acute osseous or soft tissue abnormality. The mastoid air cells and visualized portions of the paranasal sinuses are well aerated. Cervical spine: No acute fracture or traumatic malalignment. There is reversal of normal cervical lordosis. The atlantoaxial and atlantooccipital articulations are intact. Vertebral body heights maintained. Obliteration of the disc spaces at C5-C6 and C6-C7 with accompanying endplate osteophytes. No evidence of acute fracture. No prevertebral soft tissue swelling. Visualized portions of the lung apices are unremarkable. The thyroid gland is unremarkable. CT/CT cervical spine wo IV con IMPRESSION: * No acute intracranial bleed or territorial infarction. * No acute fracture or traumatic malalignment of the cervical spine.
[2022-07-19 14:34] VITALS: BP 168/66; PULSE 99
[2022-07-19 14:36] VITALS: BMI 25.1
--- NOTE | 2022-07-19 14:40 | ED_ITS ---
HPI - Weakness General Chief complaint: General Medical Stated complaint: WEAK,FEVER 102,RECENT SURGERY PER EMS Time Seen by Provider: 07/19/22 14:34 Source: patient, EMS, RN notes reviewed and old records reviewed Mode of arrival: ambulatory Limitations: no limitations History of Present Illness HPI Narrative: 77-year-old male presents to emergency department from home where he lives alone. Patient states that he started feeling weak at his house today was unable to get off of his couch and even urinated on himself. He is unsure the last time he fed himself. He does live alone he denies any fevers cough or chest pain he states he just did not feel like he could get up so called EMS who brought patient into the ER. Patient had recent complicated history including cholecystectomy sepsis and AFib the AFib has resolved he did have the gallbladder drained but has not had surgery to remove the gallbladder completely. Patient denies any falls or abdominal pain at this time. MD Complaint: generalized weakness Related Data Home Medications Medication Instructions Recorded Confirmed amlodipine 10 mg tablet 10 mg PO DAILY 11/22/21 07/19/22 atorvastatin 20 mg tablet 20 mg PO DAILY 11/22/21 07/19/22 cholecalciferol (vitamin D3) 125 125 mcg PO DAILY 11/22/21 07/19/22 mcg (5,000 unit) capsule furosemide 40 mg tablet 40 mg PO DAILY 11/22/21 07/19/22 metoprolol tartrate 50 mg tablet 50 mg PO BID 11/22/21 07/19/22 insulin glargine 100 unit/mL (3 45 unit subcut BEDTIME 04/28/22 07/19/22 mL) subcutaneous pen (Lantus Solostar U-100 Insulin) insulin lispro 100 unit/mL 0 sliding scale dose subcut TID 06/18/22 07/19/22 subcutaneous pen (Humalog KwikPen (U-100) Insulin) lisinopril 5 mg tablet 5 mg PO DAILY 06/18/22 07/19/22 metformin 500 mg tablet,extended 1,000 mg PO BID 06/18/22 07/19/22 release 24 hr methotrexate sodium 2.5 mg tablet 20 mg PO QWEEK 06/18/22 07/19/22 dapagliflozin 5 mg tablet (Farxiga) 5 mg PO DAILY 07/19/22 07/19/22 glipizide 10 mg tablet, extended 10 mg PO BID 07/19/22 07/19/22 release 24 hr Previous Rx's Medication Instructions Recorded etanercept 50 mg/mL (1 mL) 50 mg subcut QWEEK #12 mL 11/28/21 subcutaneous pen injector (Enbrel SureClick) Allergies Allergy/AdvReac Type Severity Reaction Status Date / Time famotidine [From Pepcid] Allergy Intermediate Hallucinati Verified 06/18/22 08:39 ons Review of Systems Review of Systems: Review of systems: General: Unable to get off the couch Patient denies any fever chills recent illness or falls Musculoskeletal: Denies back pain or body aches or other injuries HEENT: denies headache, runny nose, ear pain Respiratory: denies shortness of breath, cough Cardiovascular: no chest pain or palpitations : denies dysuria, frequency Abdomen: no nausea vomiting denies abdominal pain Extremities: no swelling, no pain Skin: no diaphoresis Yes all other systems are reviewed and are negative PMFSH Past Medical History Medical History ADHD Back pain Cardiomegaly Diabetes Diabetic retinopathy Encounter for screening for other viral diseases Gout Hypertension Immunosuppression due to drug therapy 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, [place] [facility], current use New onset a-fib Normal pressure hydrocephalus Obstructive sleep apnea Paroxysmal atrial fibrillation Protein malnutrition Psoriasis Psoriatic arthritis Restless leg syndrome Screening-pulmonary TB Social History Social History Household Members: None Household Members Other:: lives alone Housing: House Do you presently have visiting nurse or other home services: No Alcohol intake: current Alcohol intake frequency: a few times a month Patient Tobacco Use Status: Never used Tobacco Smoked in Last 30 Days: No e-Cigarette/Vaping Use: Never Used Use of substances other than those prescribed or required for medical reasons: No service: No Current occupational status: retired Current occupation: [employer] Physical Exam Vital Signs: Vital Signs: Last Vital Signs Temp 100.3 F 07/19/22 16:02 Pulse 100 07/19/22 16:02 Resp 22 H 07/19/22 16:02 BP 144/52 H 07/19/22 16:02 Pulse Ox 97 07/19/22 16:02 O2 Del Method Nasal Cannula 07/19/22 16:02 O2 Flow Rate 2 07/19/22 16:02 BMI result Body Mass Index 25.1 Neurological exam: CN II- XII tested. Patient is alert and oriented to person place and time. Patient has no dysphagia or dysarthia, denies good vision in all four vision da silva no nystagmus on exam, good strength to upper and lower extremities with normal reflexes to brachioradialis, wrist, patella and achilles. Negative romberg, good finger to nose and heel to jacobs. General: Strong ammonia smell Very weak and sluggish Well-appearing well- nourished in no signs of distress HEENT: Normocephalic atraumatic Neck: No signs of JVD, no masses no tenderness or lymphadenopathy Cardiovascular: Regular rate and rhythm Respiratory: Clear to auscultation bilaterally Abdomen: Soft nontender no masses Extremities: Normal pedal pulses no signs of edema Skin: Dry warm no rashes Back: No tenderness full ROM Medications Administered Discontinued Medications Generic Name Dose Route Start Last Admin Trade Name Freq PRN Reason Stop Dose Admin Sodium Chloride 1,000 mls @ 999 mls/hr 07/19/22 14:45 07/19/22 15:33 Ns IV 07/19/22 15:45 999 mls/hr .Q1H1M BENIGNO Administration Piperacillin Sod/Tazobactam 100 mls @ 200 mls/hr 07/19/22 15:56 07/19/22 16:12 Sod 4.5 gm/ Sodium Chloride IV 07/19/22 16:25 200 mls/hr ONCE ONE Administration Medical Decision Making Medical Decision Making [facility] Narrative: Concern for dehydration electrolyte abnormality and weakness he will check labs again patient for CAT scan since he does have a INTERVENTIONAL RADIOLOGY TECH shunt I will scan his head neck and get an x-ray of his INTERVENTIONAL RADIOLOGY TECH shunt. concern for sepsis I will give zosyn 30cc per kg fluids and vancomycin WBC elevated with elevated lft's concern for obstructive disease process related to cholangitis vs cholecystitis. I will order US and CT [address] Martinez from GI to follow the patient pending CT and US. I spoke with surgery and patient was seen by Dr. Mariee Differential Diagnosis Differential Diagnoses: The differential diagnosis associated with the presentation includes Acute urinary tract infection INTERVENTIONAL RADIOLOGY TECH shunt related issue urinary tract infection sepsis problems related to his recent gallbladder surgery, cholelithiasis, choledocholithiasis, cholangitis, cholecystis. Admission/Observation Consideration of admission/observation: Escalation of care including admission/observation considered Consult Healthcare Provider Management of the patient was discussed with: Hospitalist and Sales And Merchandising Representative [address] Martinez about potential biliary obstruction, [address] Mariee as the patient will likely needed to be followed with his acalculous choelcystitis. Lab Data MDM Lab Attestation statement: I reviewed the patient's lab results. LFT's are elevated with elevated WBC count 07/19/22 15:05 07/19/22 15:05 Labs: Lab Results 07/19/22 07/19/22 07/19/22 Range/Units 14:49 15:05 15:05 WBC 17.2 H (4.8-10.8) X10*3/uL RBC 4.61 (4.60-5.80) X10*6/uL Hgb 14.2 (14.0-18.0) g/dl Hct 43.0 (42.0-52.0) % MCV 93.3 (80.0-98.0) fL MCH 30.8 (27.0-33.0) pg MCHC 33.0 (31.0-36.0) g/dl RDW 15.4 (11.0-16.0) % Plt Count 220 (160-400) X10*3/uL MPV 9.6 (9.4-12.4) fL Immature Gran % (Auto) 0.6 H (0.0-0.4) % Neut % (Auto) 89.9 H (45-73) % Lymph % (Auto) 1.9 L (20-40) % Blackford % (Auto) 7.4 (2-11) % Eos % (Auto) 0.0 (0-4) % Baso % (Auto) 0.2 (0-2) % Lymph # (Auto) 0.3 L (1.2-4.9) X10*3/uL Blackford # (Auto) 1.3 H (0.1-1.2) X10*3/uL Eos # (Auto) 0.0 (0.0-0.4) X10*3/uL Baso # (Auto) 0.0 (0.0-0.2) X10*3/uL Abs Immat Gran (auto) 0.10 H (0.00-0.03) X10*3/uL Absolute Neuts (auto) 15.5 H (2.0-8.3) x10*3/uL Absolute Nucleated RBC 0.000 (0.0-0.012) X10*3/uL Nucleated RBC % (auto) 0.0 (0.0-0.2) /100WBC Sodium 139 (135-145) mmol/L Potassium 4.1 (3.3-5.1) mmol/L Chloride 102 (96-108) mmol/L Carbon Dioxide 26 (22-29) mmol/L Anion Gap 15 (12-20) BUN 23 H (9-16) mg/dL Creatinine 1.30 (0.5-1.4) mg/dL Estim Creat Clear Calc 48.3 Estimated GFR 54 POC Glucose 163 H (60-115) mg/dL Random Glucose 180 H (60-115) mg/dL Lactic Acid (0.5-2.0) mmol/L Calcium 9.9 D (8.4-10.2) mg/dL Magnesium 1.7 (1.6-2.6) mg/dL Total Bilirubin 2.3 H (0.0-1.0) mg/dL Direct Bilirubin 1.5 H (0.0-0.5) mg/dL AST 553 H (5-37) U/L ALT 462 H (0-40) U/L Alkaline Phosphatase 240 H (39-117) U/L Ammonia (13-55) umol/L Troponin I High Sens (<3.5-35.0) ng/L B-Natriuretic Peptide (<100) pg/mL Total Protein 6.7 (6.5-8.0) g/dL Albumin 3.9 (3.5-5.0) g/dL Lipase 29 (8-78) U/L Ethyl Alcohol < 10 mg/dL COVID-19 ([facility]) (Negative) COVID-19 Clin Com Blood Type Antibody Screen 07/19/22 07/19/22 07/19/22 Range/Units 15:05 15:05 15:05 WBC (4.8-10.8) X10*3/uL RBC (4.60-5.80) X10*6/uL Hgb (14.0-18.0) g/dl Hct (42.0-52.0) % MCV (80.0-98.0) fL MCH (27.0-33.0) pg MCHC (31.0-36.0) g/dl RDW (11.0-16.0) % Plt Count (160-400) X10*3/uL MPV (9.4-12.4) fL Immature Gran % (Auto) (0.0-0.4) % Neut % (Auto) (45-73) % Lymph % (Auto) (20-40) % Blackford % (Auto) (2-11) % Eos % (Auto) (0-4) % Baso % (Auto) (0-2) % Lymph # (Auto) (1.2-4.9) X10*3/uL Blackford # (Auto) (0.1-1.2) X10*3/uL Eos # (Auto) (0.0-0.4) X10*3/uL Baso # (Auto) (0.0-0.2) X10*3/uL Abs Immat Gran (auto) (0.00-0.03) X10*3/uL Absolute Neuts (auto) (2.0-8.3) x10*3/uL Absolute Nucleated RBC (0.0-0.012) X10*3/uL Nucleated RBC % (auto) (0.0-0.2) /100WBC Sodium (135-145) mmol/L Potassium (3.3-5.1) mmol/L Chloride (96-108) mmol/L Carbon Dioxide (22-29) mmol/L Anion Gap (12-20) BUN (9-16) mg/dL Creatinine (0.5-1.4) mg/dL Estim Creat Clear Calc Estimated GFR POC Glucose (60-115) mg/dL Random Glucose (60-115) mg/dL Lactic Acid 3.7 H* (0.5-2.0) mmol/L Calcium (8.4-10.2) mg/dL Magnesium (1.6-2.6) mg/dL Total Bilirubin (0.0-1.0) mg/dL Direct Bilirubin (0.0-0.5) mg/dL AST (5-37) U/L ALT (0-40) U/L Alkaline Phosphatase (39-117) U/L Ammonia (13-55) umol/L Troponin I High Sens 4.0 D (<3.5-35.0) ng/L B-Natriuretic Peptide 58 (<100) pg/mL Total Protein (6.5-8.0) g/dL Albumin (3.5-5.0) g/dL Lipase (8-78) U/L Ethyl Alcohol mg/dL COVID-19 ([facility]) (Negative) COVID-19 Clin Com Blood Type Antibody Screen 07/19/22 07/19/22 07/19/22 Range/Units 15:05 15:05 15:05 WBC (4.8-10.8) X10*3/uL RBC (4.60-5.80) X10*6/uL Hgb (14.0-18.0) g/dl Hct (42.0-52.0) % MCV (80.0-98.0) fL MCH (27.0-33.0) pg MCHC (31.0-36.0) g/dl RDW (11.0-16.0) % Plt Count (160-400) X10*3/uL MPV (9.4-12.4) fL Immature Gran % (Auto) (0.0-0.4) % Neut % (Auto) (45-73) % Lymph % (Auto) (20-40) % Blackford % (Auto) (2-11) % Eos % (Auto) (0-4) % Baso % (Auto) (0-2) % Lymph # (Auto) (1.2-4.9) X10*3/uL [place]ford # (Auto) (0.1-1.2) X10*3/uL Eos # (Auto) (0.0-0.4) X10*3/uL Baso # (Auto) (0.0-0.2) X10*3/uL Abs Immat Gran (auto) (0.00-0.03) X10*3/uL Absolute Neuts (auto) (2.0-8.3) x10*3/uL Absolute Nucleated RBC (0.0-0.012) X10*3/uL Nucleated RBC % (auto) (0.0-0.2) /100WBC Sodium (135-145) mmol/L Potassium (3.3-5.1) mmol/L Chloride (96-108) mmol/L Carbon Dioxide (22-29) mmol/L Anion Gap (12-20) BUN (9-16) mg/dL Creatinine (0.5-1.4) mg/dL Estim Creat Clear Calc Estimated GFR POC Glucose (60-115) mg/dL Random Glucose (60-115) mg/dL Lactic Acid (0.5-2.0) mmol/L Calcium (8.4-10.2) mg/dL Magnesium (1.6-2.6) mg/dL Total Bilirubin (0.0-1.0) mg/dL Direct Bilirubin (0.0-0.5) mg/dL AST (5-37) U/L ALT (0-40) U/L Alkaline Phosphatase (39-117) U/L Ammonia 37 (13-55) umol/L Troponin I High Sens (<3.5-35.0) ng/L B-Natriuretic Peptide (<100) pg/mL Total Protein (6.5-8.0) g/dL Albumin (3.5-5.0) g/dL Lipase (8-78) U/L Ethyl Alcohol mg/dL COVID-19 ([facility]) Negative (Negative) COVID-19 Clin Com See Note Blood Type O Positive Antibody Screen NEGATIVE Independent Interpretation I performed an independent interpretation of an: EKG and Plain X-Ray Interpretation: Rate 101 normal sinus rhythm normal intervals no signs of ischemia Radiology Impression Discussion of test interpretation with radiology: I have reviewed the radiologist's reading. Independent Historian Clinical information obtained from an independent historian. History obtained from or confirmed by: EMS External Record Review External record reviewed: Inpatient record, Outpatient record, Prior outpatient labs and Outside ED record Prescription Management I considered prescription management with: Other Chronic Conditions Patient?s care impacted by: Diabetes and Hypertension Social Determinants Patient?s care significantly limited by Social Determinants of Health including: Inadequate housing and Other Social Determinant of Health Patient lives alone and is unable to get out of his couch and has been urinating himself all day Core Measures AMI core measures followed: Yes Critical Care Time Critical Care Time Critical Care Time: Yes Total Critical Care Time: 75 Attestation: Patient with complicated history review of chart found to be septic requiring antibiotics fluids concern for obstructive gallbladder Discharge Plan Discharge Clinical Impression: Acute alteration in mental status, Unable to ambulate, Hepatitis Prescriptions: No Action Enbrel SureClick 50 mg/mL (1 mL) pen injector 50 mg subcut QWEEK Qty: 12 1RF insulin glargine [Lantus Solostar U-100 Insulin] 100 unit/mL (3 mL) insulin pen 45 unit subcut BEDTIME glipizide 10 mg tablet extended release 24hr 10 mg PO BID Farxiga 5 mg tablet 5 mg PO DAILY methotrexate sodium 2.5 mg tablet 20 mg PO QWEEK lisinopril 5 mg tablet 5 mg PO DAILY metformin 500 mg tablet extended release 24 hr 1,000 mg PO BID insulin lispro [Humalog KwikPen Insulin] 100 unit/mL insulin pen 0 sliding scale dose subcut TID amlodipine 10 mg tablet 10 mg PO DAILY atorvastatin 20 mg tablet 20 mg PO DAILY furosemide 40 mg tablet 40 mg PO DAILY metoprolol tartrate 50 mg tablet 50 mg PO BID cholecalciferol (vitamin D3) 125 mcg (5,000 unit) capsule 125 mcg PO DAILY
--- NOTE | 2022-07-19 14:42 | ECG_ITS ---
Test Reason : WEAKNESS Blood Pressure : / mmHG Vent. Rate : 101 BPM Atrial Rate : 101 BPM P-R Int : 184 ms QRS Dur : 082 ms QT Int : 344 ms P-R-T Axes : 036 070 044 degrees QTc Int : 446 ms Sinus tachycardia Otherwise normal ECG When compared with ECG of 29-APR-2022 15:52, Sinus rhythm has replaced Atrial fibrillation Vent. rate has decreased BY 66 BPM Non-specific change in ST segment in Inferior leads Nonspecific T wave abnormality has replaced inverted T waves in Inferior leads Referred By: Victoriano Lassiter Electronically Signed By:Martínez Gee
[2022-07-19 14:54] LABS: Glucose, Whole Blood 163 mg/dL (60-115)
[2022-07-19 15:15] LABS: MANUAL DIFF FLAG NO
[2022-07-19 15:28] LABS: Basophils Percent Auto 0.2 % (0-2); Hemoglobin 14.2 g/dl (14.0-18.0); Imm Gran Pct Auto 0.6 % (0.0-0.4); Lymphocytes Absolute Auto 0.3 X10*3/uL (1.2-4.9); Lymphocytes Percent Auto 1.9 % (20-40); Mean Corpuscular Hemoglobin 30.8 pg (27.0-33.0); Mean Corpuscular Volume 93.3 fL (80.0-98.0); Mean Platelet Volume 9.6 fL (9.4-12.4); Monocytes Absolute Auto 1.3 X10*3/uL (0.1-1.2); Monocytes Percent Auto 7.4 % (2-11); Neutrophils Absolute Auto 15.5 x10*3/uL (2.0-8.3); Neutrophils Percent Auto 89.9 % (45-73); Platelet Count 220 X10*3/uL (160-400); Red Blood Count 4.61 X10*6/uL (4.60-5.80); Red Cell Distribution Width 15.4 % (11.0-16.0); White Blood Count 17.2 X10*3/uL (4.8-10.8)
[2022-07-19 15:30] LABS: IDNOW Serial# 6674DD1D
[2022-07-19 15:31] LABS: COVID-19 Test Negative (Negative)
[2022-07-19] MEDS: 0.9 % Sodium Chloride 1,000 ML 999 ML IV ×2 (15:33→16:35)
[2022-07-19 15:37] LABS: Alanine Aminotransferase 462 U/L (0-40); Albumin Level 3.9 g/dL (3.5-5.0); Alkaline Phosphatase 240 U/L (39-117); Anion Gap 15 (12-20); Aspartate Amino Transferase 553 U/L (5-37); Bilirubin Direct 1.5 mg/dL (0.0-0.5); Bilirubin Total 2.3 mg/dL (0.0-1.0); Blood Urea Nitrogen 23 mg/dL (9-16); Calcium 9.9 mg/dL (8.4-10.2); Carbon Dioxide 26 mmol/L (22-29); Chloride 102 mmol/L (96-108); Creatinine Clr Calc Pharmacy 48.3; Estimated Glomerular Filt Rate 54; Ethanol < 10 mg/dL; Glucose Random 180 mg/dL (60-115); Lactic Acid 3.7 mmol/L (0.5-2.0); Lipase 29 U/L (8-78); Magnesium 1.7 mg/dL (1.6-2.6); Potassium 4.1 mmol/L (3.3-5.1); Sodium 139 mmol/L (135-145); Total Protein 6.7 g/dL (6.5-8.0)
[2022-07-19 15:39] LABS: B Type Natriuretic Peptide 58 pg/mL (<100)
--- NOTE | 2022-07-19 15:45 | PHA.MEDREC ---
Pharmacy Consult ? Medication Reconciliation Pharmacy has completed the medication reconciliation.
[2022-07-19 15:52] LABS: Ammonia 37 umol/L (13-55)
[2022-07-19 15:56] VITALS: PULSE 100; RESP 21; TEMP 37.7; O2SAT 97
[2022-07-19 16:02] VITALS: BP 144/52; PULSE 100; RESP 22; TEMP 37.9; O2SAT 97
[2022-07-19] MEDS: Piperacillin Sodium/Tazobactam 4.5 GM in 0.9 % Sodium Chloride 100 ML IV (16:12)
--- NOTE | 2022-07-19 16:25 | PC.NURSE ---
pt resting comfortably on stretcher, denies pain, denies SOB, offers no other complaints at this time. condom cath placed on patient due to incontinence, pt tolerated well. pt has 20g IV in right wrist placed by EMS, flushes well, no issue at this time, dressing changed out for security. Pt denies abdominal pain, no tenderness upon palpation. IV antibiotics started at this time due to elevated lactic and WBC. fluids running at this time as well.
--- NOTE | 2022-07-19 16:32 | P.CNGI_ITS ---
History of Present Illness Data of Consult Service Date: 07/19/22 Requesting physician: Victoriano LYNN Reason for consult: Biliary obstruction 77 YM with psoriatic arthritis requiring biologic agent, atrial fibrillation on anticoagulation,? DM2, normal pressure hydrocephalus with MEDICAL BILL PROCESSOR shunt, protein malnutrition, JASE, HTN, poorly controlled type 2 diabetes with a hemoglobin A1c of 8.8, cardiomegally brought to [facility] [place] ED on 07/19/22 by EMS from home with generalized weakness.? Patient stated he started feeling weak at his house today was unable to get off of his couch and even urinated on himself.? Pt is unsure the last time he fed himself.? Pt lives alone and stated he just did not feel like he could get up so called EMS who brought patient into the ER.? Patient complains of recent chills and nausea and denied any fevers, cough, c hest or abdominal pain or falls or abdominal pain. Pt denies significant output from GB drain for the past several days Labs showed leucocytosis, elevated lactic acid and LFTs. Pt was started on IV antibiotics. Apr, 2022 Patient was admitted to [facility] after he was found down presenting with severe lactic acidosis, GAIL & acute calculus cholecystitis.? Pt was admitted to ICU and discharged to rehab. He had a prolonged hospitalization due to calculous cholecystitis complicated by E coli bacteremia, sepsis, A Fib and was treated with CT guided cholecystostomy on 04/30/22. He has been followed by Dr Fontanez and GB surgery is being planned after DM is controlled.? 07/19/22 ABD US SHOWED: GALLBLADDER: Gallstones redemonstrated. Echogenic bile present. Fluid in the gallbladder wall and pericholecystic fluid. Gallbladder wall measures 0.3 cm. Positive ultrasound Hill's sign. COMMON BILE DUCT: Normal in caliber measuring 0.3 cm in diameter. FREE FLUID: None. IMPRESSION: Cholelithiasis. Fluid in the gallbladder wall and pericholecystic fluid. Positive ultrasound Hill's sign. Findings consistent with acute cholecystitis. 07/19/[address] SCAN SHOWED: 1. Cholelithiasis, gallbladder wall thickening, pericholecystic edema/fluid. Findings are suspicious for acute cholecystitis. An ultrasound of the abdomen has already been obtained, with sonographic findings reported as consistent with acute cholecystitis. See ultrasound report. ? 2. Severe colonic diverticulosis without evidence of diverticulitis. ? 3. Bilateral nonobstructing renal calculi. ? Review of Systems Review of Systems: Review of systems: General: Unable to get off the couch Patient denies any fever chills recent illness or falls Musculoskeletal: Denies back pain or body aches or other injuries HEENT: denies headache, runny nose, ear pain Respiratory: denies shortness of breath, cough Cardiovascular: no chest pain or palpitations : denies dysuria, frequency Abdomen: no nausea vomiting denies abdominal pain Extremities: no swelling, no pain Skin: no diaphoresis Yes all other systems are reviewed and are negative PMFSH Past Medical History Medical History (Updated 07/30/22 @ 16:46 by Ngueyn Velazquez MD) Abnormal LFTs ADHD Back pain Cardiomegaly Diabetes Diabetic retinopathy Encounter for screening for other viral diseases Gallstones Gout Hypertension Immunosuppression due to drug therapy Leukocytosis 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, 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, 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 New onset a-fib Normal pressure hydrocephalus Obstructive sleep apnea Paroxysmal atrial fibrillation Protein malnutrition Psoriasis Psoriatic arthritis Restless leg syndrome Screening-pulmonary TB Social History Social History Household Members: None Household Members Other:: lives alone Housing: House Do you presently have visiting nurse or other home services: No Alcohol intake: current Alcohol intake frequency: former alcohol drinker Patient Tobacco Use Status: Never used Tobacco e-Cigarette/Vaping Use: Never Used service: No Current occupational status: retired Current occupation: [employer] Allergies Allergy/AdvReac Type Severity Reaction Status Date / Time famotidine [From Pepcid] Allergy Intermediate Hallucinati Verified 06/18/22 08:39 ons Active Medications: Current Medications Sodium Chloride (Ns) 1,000 mls @ 999 mls/hr IV .Q1H1M BENIGNO Stop: 07/19/22 17:00 Vancomycin HCl (Vancomycin/Ns) 2,000 mg in 500 mls @ 250 mls/hr IV ONCE ONE Stop: 07/19/22 18:14 Pharmacy Consult (Consult Rx Perform Med Rec) 1 each MISCELLANE ONCE PRN PRN Reason: Consult order Home Medications Medication Instructions Recorded Confirmed Last Taken Type amlodipine 10 mg tablet 10 mg PO DAILY 11/22/21 07/19/22 04/25/22 History atorvastatin 20 mg tablet 20 mg PO DAILY 11/22/21 07/19/22 04/25/22 History cholecalciferol (vitamin D3) 125 125 mcg PO DAILY 11/22/21 07/19/22 04/25/22 History mcg (5,000 unit) capsule furosemide 40 mg tablet 40 mg PO DAILY 11/22/21 07/19/22 04/25/22 History metoprolol tartrate 50 mg tablet 50 mg PO BID 11/22/21 07/19/22 04/25/22 History insulin glargine 100 unit/mL (3 45 unit subcut BEDTIME 04/28/22 07/19/22 04/25/22 History mL) subcutaneous pen (Lantus Solostar U-100 Insulin) insulin lispro 100 unit/mL 0 sliding scale dose subcut TID 06/18/22 07/19/22 Unknown History subcutaneous pen (Humalog KwikPen (U-100) Insulin) lisinopril 5 mg tablet 5 mg PO DAILY 06/18/22 07/19/22 Unknown History metformin 500 mg tablet,extended 1,000 mg PO BID 06/18/22 07/19/22 Unknown History release 24 hr methotrexate sodium 2.5 mg tablet 20 mg PO QWEEK 06/18/22 07/19/22 Unknown History dapagliflozin 5 mg tablet (Farxiga) 5 mg PO DAILY 07/19/22 07/19/22 Unknown History glipizide 10 mg tablet, extended 10 mg PO BID 07/19/22 07/19/22 Unknown History release 24 hr Physical Exam Vital Signs: Vital Signs: Last Vital Signs Temp 100.3 F 07/19/22 16:02 Pulse 100 07/19/22 16:02 Resp 22 H 07/19/22 16:02 BP 144/52 H 07/19/22 16:02 Pulse Ox 97 07/19/22 16:02 O2 Del Method Nasal Cannula 07/19/22 16:02 O2 Flow Rate 2 07/19/22 16:02 BMI result Body Mass Index 25.1 Const: General: no acute distress Nutritional Appearance: overweight Orientation/consciousness: patient oriented x3 HEENT: Head: Yes normal to inspection Ears: hearing grossly normal b ilaterally Eyes: Sclerae: sclerae normal Pupils: Equal, round and reactive pupils present Neck: Neck: Yes normal visual inspection Chest: Chest palpation & inspection: normal inspection of the chest Resp: Effort & Inspection: normal respiratory effort Auscultation: clear to auscultation bilaterally Cardio: Palpation: normal PMI Rate: regular rate Rhythm: regular rhythm Heart sounds: S1 normal heart sound present, S2 normal heart sound present and no murmurs GI: Palpation (GI): Soft to palpation, Tenderness to palpation present (GI) (RUQ) and No hepatosplenomegaly present Auscultation: normal bowel sounds Rectal Exam - Male: Yes deferred Skin: General skin exam: no rashes or lesions noted Neuro: General: patient oriented x3, gait normal and moves all extremities Cranial nerves: Yes Equal, round and reactive pupils present Psych: Appearance: grossly normal Mental Status: mental status grossly normal Results Labs 07/19/22 15:05 07/19/22 15:05 Labs: Short CBC 07/19/22 Range/Units 15:05 WBC 17.2 H (4.8-10.8) X10*3/uL Hgb 14.2 (14.0-18.0) g/dl Hct 43.0 (42.0-52.0) % Plt Count 220 (160-400) X10*3/uL BMP 07/19/22 15:05 Sodium 139 Potassium 4.1 Chloride 102 Carbon Dioxide 26 BUN 23 H Creatinine 1.30 Calcium 9.9 D Liver Function 07/19/22 Range/Units 15:05 Total Bilirubin 2.3 H (0.0-1.0) mg/dL Direct Bilirubin 1.5 H (0.0-0.5) mg/dL AST 553 H (5-37) U/L ALT 462 H (0-40) U/L Alkaline Phosphatase 240 H (39-117) U/L Albumin 3.9 (3.5-5.0) g/dL Assessment and Plan (1) Abnormal LFTs: Status: Acute (2) Acute calculous cholecystitis: Status: Acute Plan 77 YM with psoriatic arthritis requiring biologic agent, atrial fibrillation on anticoagulation,? DM2, normal pressure hydrocephalus with MEDICAL BILL PROCESSOR shunt, protein malnutrition, JASE, HTN, poorly controlled type 2 diabetes with a hemoglobin A1c of 8.8, cardiomegally brought to [facility] ED on 07/19/22 by EMS from home with generalized weakness.? Apr, 2022 Patient was admitted to [facility] after he was found down presenting with severe lactic acidosis, GAIL & acute calculus cholecystitis.? Pt was admitted to ICU and discharged to rehab. He had a prolonged hospitalization due to calculous cholecystitis complicated by E coli bacteremia, sepsis, A Fib and was treated with CT guided cholecystostomy on 04/30/22. Patient complains of recent chills and nausea and denied any fevers, cough, chest or abdominal pain or falls or abdominal pain. Pt denies significant output from GB drain for the past several days Labs showed leucocytosis and elevated LFTs suggestive of biliary obstruction (due to CBD sludge/stone or cholecystitis) versus cholangitis lente related to sepsis. He has been followed by Dr Fontanez as outpatient and GB surgery is being planned after DM is controlled.? 07/19/22 ABD US SHOWED: GALLBLADDER: Gallstones redemonstrated. Echogenic bile present. Fluid in the gallbladder wall and pericholecystic fluid. Gallbladder wall measures 0.3 cm. Positive ultrasound Hill's sign. COMMON BILE DUCT: Normal in caliber measuring 0.3 cm in diameter. No biliary ductal dilation seen on CT scan and GB drain appears to be dislodged and proximal end is seen in the subcutaneous tissue. RECOMMENDATIONS: 1. Agree with IV antibiotics 2. Repeat LFTs in the am 3. If LFTs remain persistently elevated and CT scan shows CBD stone, pt will need an MRCP to confirm there is no biliary obstruction before proceeding with Lap Alayna. 4. Pt needs surgical evaluation for a cholecystectomy after LFTs improve. Time Spent With Patient Time: Total time managing care of this patient today ____ minutes. Procedures Date of Service Date of Service: 07/19/22
[2022-07-19] MEDS: iohexoL 350 MG/ML 100 ML INFUS..BTL IV (16:57)
--- NOTE | 2022-07-19 17:05 | PM.CNGS ---
History of Present Illness Consult details Consult date: 07/19/22 Narrative: 77-year-old male here in the ER because of weakness. He states that he could not get up from the earlier today. He denies any head trauma. He says that he has legs felt very weak. He says that he has had poor intake all day today. He had blood tests done here in the ER which showed elevated bilirubin. I was therefore consulted. The patient was in the ICU last April 2022 because of altered mental status. At that time, he was also diagnosed to have acute cholecystitis. Because of his frail health at that time, had a tube cholecystostomy and surgery for cholecystectomy was deferred. He has been following Dr. Fontanez since then for possible cholecystectomy down the line. He otherwise denies abdominal pain. He denies other GI complaints. Review of Systems Constitutional: Constitutional: Denies chills and Denies fever(s) Cardiovascular: Cardiovascular: Denies chest pain and Reports dyspnea on exertion Respiratory: Respiratory: Denies cough and Reports dyspnea on exertion Gastrointestinal: Gastrointestinal: Denies abdominal pain, Denies nausea and Denies vomiting Genitourinary: Genitourinary: Denies urinary frequency Musculoskeletal: Musculoskeletal: Reports muscle weakness [facility] Past Medical History Medical History (Updated 07/23/22 @ 16:10 by Andrey Mariee MD) Abnormal LFTs ADHD Back pain Cardiomegaly Diabetes Diabetic retinopathy Encounter for screening for other viral diseases Gallstones Gout Hypertension Immunosuppression due to drug therapy 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, alf, current use New onset a-fib Normal pressure hydrocephalus Obstructive sleep apnea Paroxysmal atrial fibrillation Protein malnutrition Psoriasis Psoriatic arthritis Restless leg syndrome Screening-pulmonary TB Social History Social History Household Members: None Household Members Other:: lives alone Housing: House Do you presently have visiting nurse or other home services: No Alcohol intake: current Alcohol intake frequency: a few times a month Patient Tobacco Use Status: Never used Tobacco e-Cigarette/Vaping Use: Never Used service: No Current occupational status: retired Current occupation: [employer] Allergies Allergy/AdvReac Type Severity Reaction Status Date / Time famotidine [From Pepcid] Allergy Intermediate Hallucinati Verified 06/18/22 08:39 ons Active Medications: Current Medications Vancomycin HCl (Vancomycin/Ns) 2,000 mg in 500 mls @ 250 mls/hr IV ONCE ONE Stop: 07/19/22 18:14 Pharmacy Consult (Consult Rx Perform Med Rec) 1 each MISCELLANE ONCE PRN PRN Reason: Consult order Home Medications Medication Instructions Recorded Confirmed Last Taken Type amlodipine 10 mg tablet 10 mg PO DAILY 11/22/21 07/19/22 04/25/22 History atorvastatin 20 mg tablet 20 mg PO DAILY 11/22/21 07/19/22 04/25/22 History cholecalciferol (vitamin D3) 125 125 mcg PO DAILY 11/22/21 07/19/22 04/25/22 History mcg (5,000 unit) capsule furosemide 40 mg tablet 40 mg PO DAILY 11/22/21 07/19/22 04/25/22 History metoprolol tartrate 50 mg tablet 50 mg PO BID 11/22/21 07/19/22 04/25/22 History insulin glargine 100 unit/mL (3 45 unit subcut BEDTIME 04/28/22 07/19/22 04/25/22 History mL) subcutaneous pen (Lantus Solostar U-100 Insulin) insulin lispro 100 unit/mL 0 sliding scale dose subcut TID 06/18/22 07/19/22 Unknown History subcutaneous pen (Humalog KwikPen (U-100) Insulin) lisinopril 5 mg tablet 5 mg PO DAILY 06/18/22 07/19/22 Unknown History metformin 500 mg tablet,extended 1,000 mg PO BID 06/18/22 07/19/22 Unknown History release 24 hr methotrexate sodium 2.5 mg tablet 20 mg PO QWEEK 06/18/22 07/19/22 Unknown History dapagliflozin 5 mg tablet (Farxiga) 5 mg PO DAILY 07/19/22 07/19/22 Unknown History glipizide 10 mg tablet, extended 10 mg PO BID 07/19/22 07/19/22 Unknown History release 24 hr Physical Exam Vital Signs: Vital Signs: Last Vital Signs Temp 100.3 F 07/19/22 16:02 Pulse 100 07/19/22 16:02 Resp 22 H 07/19/22 16:02 BP 144/52 H 07/19/22 16:02 Pulse Ox 97 07/19/22 16:02 O2 Del Method Nasal Cannula 07/19/22 16:02 O2 Flow Rate 2 07/19/22 16:02 BMI result Body Mass Index 25.1 Const: General: comfortable and no acute distress Orientation/consciousness: patient oriented x3 Neck: Neck: Yes no lymphadenopathy Resp: Auscultation: clear to auscultation bilaterally Cardio: Rhythm: regular rhythm GI: Other: No significant right upper quadrant tenderness, although the ultrasound mentions sonographic Hill sign Palpation (GI): Soft to palpation, nontender and no guarding Neuro: General: patient oriented x3 Results Labs 07/19/22 15:05 07/19/22 15:05 Labs: Abnormal lab results 07/19/22 07/19/22 07/19/22 Range/Units 14:49 15:05 15:05 WBC 17.2 H (4.8-10.8) X10*3/uL Immature Gran % (Auto) 0.6 H (0.0-0.4) % Neut % (Auto) 89.9 H (45-73) % Lymph % (Auto) 1.9 L (20-40) % Lymph # (Auto) 0.3 L (1.2-4.9) X10*3/uL Sargent # (Auto) 1.3 H (0.1-1.2) X10*3/uL Abs Immat Gran (auto) 0.10 H (0.00-0.03) X10*3/uL Absolute Neuts (auto) 15.5 H (2.0-8.3) x10*3/uL BUN 23 H (9-16) mg/dL POC Glucose 163 H (60-115) mg/dL Random Glucose 180 H (60-115) mg/dL Lactic Acid (0.5-2.0) mmol/L Total Bilirubin 2.3 H (0.0-1.0) mg/dL Direct Bilirubin 1.5 H (0.0-0.5) mg/dL AST 553 H (5-37) U/L ALT 462 H (0-40) U/L Alkaline Phosphatase 240 H (39-117) U/L 07/19/22 Range/Units 15:05 WBC (4.8-10.8) X10*3/uL Immature Gran % (Auto) (0.0-0.4) % Neut % (Auto) (45-73) % Lymph % (Auto) (20-40) % Lymph # (Auto) (1.2-4.9) X10*3/uL Sargent # (Auto) (0.1-1.2) X10*3/uL Abs Immat Gran (auto) (0.00-0.03) X10*3/uL Absolute Neuts (auto) (2.0-8.3) x10*3/uL BUN (9-16) mg/dL POC Glucose (60-115) mg/dL Random Glucose (60-115) mg/dL Lactic Acid 3.7 H* (0.5-2.0) mmol/L Total Bilirubin (0.0-1.0) mg/dL Direct Bilirubin (0.0-0.5) mg/dL AST (5-37) U/L ALT (0-40) U/L Alkaline Phosphatase (39-117) U/L Short CBC 07/19/22 Range/Units 15:05 WBC 17.2 H (4.8-10.8) X10*3/uL Hgb 14.2 (14.0-18.0) g/dl Hct 43.0 (42.0-52.0) % Plt Count 220 (160-400) X10*3/uL BMP 07/19/22 15:05 Sodium 139 Potassium 4.1 Chloride 102 Carbon Dioxide 26 BUN 23 H Creatinine 1.30 Calcium 9.9 D Liver Function 07/19/22 Range/Units 15:05 Total Bilirubin 2.3 H (0.0-1.0) mg/dL Direct Bilirubin 1.5 H (0.0-0.5) mg/dL AST 553 H (5-37) U/L ALT 462 H (0-40) U/L Alkaline Phosphatase 240 H (39-117) U/L Albumin 3.9 (3.5-5.0) g/dL All other labs normal. Laboratory Results WBC 17.2 X10*3/uL (4.8-10.8) H 07/19/22 15:05 RBC 4.61 X10*6/uL (4.60-5.80) 07/19/22 15:05 Hgb 14.2 g/dl (14.0-18.0) 07/19/22 15:05 Hct 43.0 % (42.0-52.0) 07/19/22 15:05 MCV 93.3 fL (80.0-98.0) 07/19/22 15:05 MCH 30.8 pg (27.0-33.0) 07/19/22 15:05 MCHC 33.0 g/dl (31.0-36.0) 07/19/22 15:05 RDW 15.4 % (11.0-16.0) 07/19/22 15:05 Plt Count 220 X10*3/uL (160-400) 07/19/22 15:05 MPV 9.6 fL (9.4-12.4) 07/19/22 15:05 Immature Gran % (Auto) 0.6 % (0.0-0.4) H 07/19/22 15:05 Neut % (Auto) 89.9 % (45-73) H 07/19/22 15:05 Lymph % (Auto) 1.9 % (20-40) L 07/19/22 15:05 Sargent % (Auto) 7.4 % (2-11) 07/19/22 15:05 Eos % (Auto) 0.0 % (0-4) 07/19/22 15:05 Baso % (Auto) 0.2 % (0-2) 07/19/22 15:05 Lymph # (Auto) 0.3 X10*3/uL (1.2-4.9) L 07/19/22 15:05 Sargent # (Auto) 1.3 X10*3/uL (0.1-1.2) H 07/19/22 15:05 Eos # (Auto) 0.0 X10*3/uL (0.0-0.4) 07/19/22 15:05 Baso # (Auto) 0.0 X10*3/uL (0.0-0.2) 07/19/22 15:05 Abs Immat Gran (auto) 0.10 X10*3/uL (0.00-0.03) H 07/19/22 15:05 Absolute Neuts (auto) 15.5 x10*3/uL (2.0-8.3) H 07/19/22 15:05 Absolute Nucleated RBC 0.000 X10*3/uL (0.0-0.012) 07/19/22 15:05 Nucleated RBC % (auto) 0.0 /100WBC (0.0-0.2) 07/19/22 15:05 Sodium 139 mmol/L (135-145) 07/19/22 15:05 Potassium 4.1 mmol/L (3.3-5.1) 07/19/22 15:05 Chloride 102 mmol/L (96-108) 07/19/22 15:05 Carbon Dioxide 26 mmol/L (22-29) 07/19/22 15:05 Anion Gap 15 (12-20) 07/19/22 15:05 BUN 23 mg/dL (9-16) H 07/19/22 15:05 Creatinine 1.30 mg/dL (0.5-1.4) 07/19/22 15:05 Estim Creat Clear Calc 48.3 07/19/22 15:05 Estimated GFR 54 07/19/22 15:05 POC Glucose 163 mg/dL (60-115) H 07/19/22 14:49 Random Glucose 180 mg/dL (60-115) H 07/19/22 15:05 Lactic Acid 3.7 mmol/L (0.5-2.0) H* 07/19/22 15:05 Calcium 9.9 mg/dL (8.4-10.2) D 07/19/22 15:05 Magnesium 1.7 mg/dL (1.6-2.6) 07/19/22 15:05 Total Bilirubin 2.3 mg/dL (0.0-1.0) H 07/19/22 15:05 Direct Bilirubin 1.5 mg/dL (0.0-0.5) H 07/19/22 15:05 AST 553 U/L (5-37) H 07/19/22 15:05 ALT 462 U/L (0-40) H 07/19/22 15:05 Alkaline Phosphatase 240 U/L (39-117) H 07/19/22 15:05 Ammonia 37 umol/L (13-55) 07/19/22 15:05 Troponin I High Sens 4.0 ng/L (<3.5-35.0) D 07/19/22 15:05 B-Natriuretic Peptide 58 pg/mL (<100) 07/19/22 15:05 Total Protein 6.7 g/dL (6.5-8.0) 07/19/22 15:05 Albumin 3.9 g/dL (3.5-5.0) 07/19/22 15:05 Lipase 29 U/L (8-78) 07/19/22 15:05 Ethyl Alcohol < 10 mg/dL 07/19/22 15:05 COVID-19 (HELENA) Negative (Negative) 07/19/22 15:05 COVID-19 Clin Com See Note 07/19/22 15:05 Blood Type O Positive 07/19/22 15:05 Antibody Screen NEGATIVE 07/19/22 15:05 Impressions Chest X-Ray 07/19/22 15:22 IMPRESSION: Unremarkable examination. Cervical Spine CT 07/19/22 15:30 IMPRESSION: * No acute intracranial bleed or territorial infarction. * No acute fracture or traumatic malalignment of the cervical spine. Head CT 07/19/22 15:30 IMPRESSION: * No acute intracranial bleed or territorial infarction. * No acute fracture or traumatic malalignment of the cervical spine. Abdomen Ultrasound 07/19/22 16:42 IMPRESSION: Cholelithiasis. Fluid in the gallbladder wall and pericholecystic fluid. Positive ultrasound Hill's sign. Findings consistent with acute cholecystitis. Assessment and Plan (1) Abnormal LFTs: Status: Acute 77-year-old male with known gallstones, previously managed for acute cholecystitis with tube cholecystostomy, now brought to the ER for weakness. His LFTs were abnormal with a bilirubin of 2.3/1.5. His ultrasound and CAT scan are being read as consistent with acute cholecystitis although clinically, he does not have any significant tenderness on this area. He denies abdominal pain in these made complaint was weakness. These changes may also be chronic especially in his background of previous tube cholecystostomy. He should be worked up for CBD obstruction. GI is being consulted for this and an MRCP should be arranged. He had elevated lactate but this is likely secondary to volume depletion. He should be aggressively hydrated. He should be started on empiric antibiotics. He has been followed by Dr. Fontanez so I will inform him tomorrow this consultation. Time Spent With Patient Time: Total time managing care of this patient today ____ minutes. Procedures Date of Service Date of Service: 07/19/22
[2022-07-19 17:12] LABS: Reflex Lactate? Lactic Acid Added
[2022-07-19] MEDS: vancomycin/NS 2,000 MG/500 ML PLAST..BAG 250 MG IV (17:15)
[2022-07-19 18:14] VITALS: BP 126/80; PULSE 84; RESP 15; O2SAT 99
--- NOTE | 2022-07-19 18:18 | PC.NURSE ---
patient continues to rest comfortably on stretcher, denies pain and offers no complaints. Second IV was started by this RN to administer medications
--- NOTE | 2022-07-19 18:25 | P.HPHOSP_ITS ---
History of Present Illness Date of Service: 07/19/22 Attending physician on admission: Margie Hartmann Chief Complaint: generalized weakness 77-year-old gentleman with past medical history significant for diabetes mellitus type 2 on insulin, psoriatic arthritis, hypertension, paroxysmal atrial fibrillation, cardiomegaly with recent hospitalization at [facility] in April 2022 with diagnosis of severe lactic acidosis, acute calculous cholecystitis and acute kidney injury patient had a prolonged hospitalization complicated by E coli bacteremia sepsis new onset atrial fibrillation was treated with CT-guided cholecystostomy tube placement on 04/30/2022 was treated with amiodarone and Eliquis, anticoagulation was subsequently discontinued patient was supposed to have follow-up with general surgery for cholecystectomy however patient never had a follow-up and today he developed generalized weakness was unable to get off of his couch and even urinated on himself, therefore called EMS and was brought to [place] [facility] patient did complain of chills and nausea denied fever, no abdominal pain he noted no significant drainage from cholecystostomy tube for last several days, workup in the ED including abdominal ultrasound and CT scan of abdomen consistent with acute cholecystitis, patient noted to have significantly elevated LFTs, normal renal function, leukocytosis patient treated in the emergency room with IV Zosyn, IV fluids evaluated by General surgery and Gastroenterology and now being admitted to [facility] with severe sepsis related to acute calculus cholecystitis. Review of Systems Review of Systems: General no headache, no dizziness, CVS no chest pain, no palpitation. Respiratory no cough, no sob. 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 New onset a-fib Normal pressure hydrocephalus Obstructive sleep apnea Paroxysmal atrial fibrillation Protein malnutrition Psoriasis Psoriatic arthritis Restless leg syndrome Screening-pulmonary TB Social History Household Members: None Household Members Other:: lives alone Housing: House Do you presently have visiting nurse or other home services: No Alcohol intake: current Alcohol intake frequency: a few times a month Patient Tobacco Use Status: Never used Tobacco e-Cigarette/Vaping Use: Never Used service: No Current occupational status: retired Current occupation: [employer] Allergies Allergy/AdvReac Type Severity Reaction Status Date / Time famotidine [From Pepcid] Allergy Intermediate Hallucinati Verified 06/18/22 08:39 ons Active Medications: Current Medications Acetaminophen (Acetaminophen 325 Mg Tablet) 650 mg PO Q6H PRN PRN Reason: Pain, Mild (Pain Scale 1-3) Glucose (Glucose Gel 15 Gm Gel..Gram.) 15 gm PO Q15M PRN; Protocol PRN Reason: per Hypoglycemia Standing Ord. Lactated Ringer's (Lr) 1,000 mls @ 100 mls/hr IVCONT .Q10H BENIGNO Piperacillin Sod/Tazobactam (Sod 3.375 gm/ Sodium Chloride) 50 mls @ 100 mls/hr IV Q6H BENIGNO Dextrose (D10) 250 mls @ 750 mls/hr IV Q15M PRN; Protocol PRN Reason: per Hypoglycemia Standing Ord. Insulin Human Lispro (Insulin Lispro 100 Unit/Ml 3 Ml Vial) 0 unit SUBCUT Q6H [facility]; Protocol Melatonin (Melatonin 3 Mg Tablet) 6 mg PO BEDTIME PRN PRN Reason: Insomnia Metoprolol Tartrate (Metoprolol Tartrate 50 Mg Tablet) 50 mg PO BID [facility]; Protocol Morphine Sulfate (Morphine Sulfate 4 Mg/Ml Cartridge) 3 mg IVPUSH Q4H PRN; Protocol PRN Reason: Pain, Severe (Pain Scale 7-10) Ondansetron HCl (Ondansetron Hcl 4 Mg/2 Ml Vial) 4 mg IVPUSH Q8H PRN PRN Reason: Nausea and Vomiting Pharmacy Consult (Consult Rx Perform Med Rec) 1 each MISCELLANE ONCE PRN PRN Reason: Consult order Sodium Chloride (0.9 % Sodium Chloride Flush 3 Ml Syringe) 3 [facility] Medications Medication Instructions Recorded Confirmed Last Taken Type amlodipine 10 mg tablet 10 mg PO DAILY 11/22/21 07/19/22 04/25/22 History atorvastatin 20 mg tablet 20 mg PO DAILY 11/22/21 07/19/22 04/25/22 History cholecalciferol (vitamin D3) 125 125 mcg PO DAILY 11/22/21 07/19/22 04/25/22 History mcg (5,000 unit) capsule furosemide 40 mg tablet 40 mg PO DAILY 11/22/21 07/19/22 04/25/22 History metoprolol tartrate 50 mg tablet 50 mg PO BID 11/22/21 07/19/22 04/25/22 History insulin glargine 100 unit/mL (3 45 unit subcut BEDTIME 04/28/22 07/19/22 04/25/22 History mL) subcutaneous pen (Lantus Solostar U-100 Insulin) insulin lispro 100 unit/mL 0 sliding scale dose subcut TID 06/18/22 07/19/22 Unknown History subcutaneous pen (Humalog KwikPen (U-100) Insulin) lisinopril 5 mg tablet 5 mg PO DAILY 06/18/22 07/19/22 Unknown History metformin 500 mg tablet,extended 1,000 mg PO BID 06/18/22 07/19/22 Unknown History release 24 hr methotrexate sodium 2.5 mg tablet 20 mg PO QWEEK 06/18/22 07/19/22 Unknown History dapagliflozin 5 mg tablet ([facility]) 5 mg PO DAILY 07/19/22 07/19/22 Unknown History glipizide 10 mg tablet, extended 10 mg PO BID 07/19/22 07/19/22 Unknown History release 24 hr Physical Exam Vital Signs and Narrative: Vital Signs: Last Vital Signs Temp 100.3 F 07/19/22 16:02 Pulse 84 07/19/22 18:14 Resp 15 07/19/22 18:14 BP 126/80 07/19/22 18:14 Pulse Ox 99 07/19/22 18:14 O2 Del Method Room Air 07/19/22 18:14 O2 Flow Rate 2 07/19/22 16:02 BMI result Body Mass Index 25.1 Const: Other: General awake alert x3, resting comfortably in no acute distress. Heent PERRLA,EOMI Neck supple no JVD. CVS regular rate rhythm, Respiratory lungs clear to auscultation, no respiratory distress, no wheeze, no rhonchi. Gastrointestinal abdomen soft, mild tenderness right upper quadrant, bowel sounds audible, no guarding , no rigidity, cholecystostomy tube in place with no significant drainage. Extremities no edema. Neuro nonfocal ,moving all 4 extremity speech clear. Skin no rash psych appropriate affect Results Labs 07/19/22 15:05 07/19/22 15:05 Labs: Laboratory Results - last 24 hr 07/19/22 07/19/22 07/19/22 14:49 15:05 15:05 MCV 93.3 MCH 30.8 MCHC 33.0 RDW 15.4 Plt Count 220 MPV 9.6 Immature Gran % (Auto) 0.6 H Neut % (Auto) 89.9 H Lymph % (Auto) 1.9 L [place] % (Auto) 7.4 Eos % (Auto) 0.0 Baso % (Auto) 0.2 Lymph # (Auto) 0.3 L [place] # (Auto) 1.3 H Eos # (Auto) 0.0 Baso # (Auto) 0.0 Abs Immat Gran (auto) 0.10 H Absolute Neuts (auto) 15.5 H Absolute Nucleated RBC 0.000 Nucleated RBC % (auto) 0.0 Anion Gap 15 Estim Creat Clear Calc 48.3 Estimated GFR 54 POC Glucose 163 H Random Glucose 180 H Lactic Acid Lactic Acid F/U @ 2Hr Calcium 9.9 D Magnesium 1.7 Total Bilirubin 2.3 H Direct Bilirubin 1.5 H AST 553 H ALT 462 H Alkaline Phosphatase 240 H Ammonia Troponin I High Sens B-Natriuretic Peptide Total Protein 6.7 Albumin 3.9 Lipase 29 Ethyl Alcohol < 10 COVID-19 (HELENA) [facility] Blood Type Antibody Screen 07/19/22 07/19/22 07/19/22 15:05 15:05 15:05 MCV MCH MCHC RDW Plt Count MPV Immature Gran % (Auto) Neut % (Auto) Lymph % (Auto) [place] % (Auto) Eos % (Auto) Baso % (Auto) Lymph # (Auto) [place] # (Auto) Eos # (Auto) Baso # (Auto) Abs Immat Gran (auto) Absolute Neuts (auto) Absolute Nucleated RBC Nucleated RBC % (auto) Anion Gap Estim Creat Clear Calc Estimated GFR POC Glucose Random Glucose Lactic Acid 3.7 H* Lactic Acid F/U @ 2Hr Calcium Magnesium Total Bilirubin Direct Bilirubin AST ALT Alkaline Phosphatase Ammonia Troponin I High Sens 4.0 D B-Natriuretic Peptide 58 Total Protein Albumin Lipase Ethyl Alcohol COVID-19 (HELENA) [facility] Blood Type Antibody Screen 07/19/22 07/19/22 07/19/22 15:05 15:05 15:05 MCV MCH MCHC RDW Plt Count MPV Immature Gran % (Auto) Neut % (Auto) Lymph % (Auto) [place] % (Auto) Eos % (Auto) Baso % (Auto) Lymph # (Auto) [place] # (Auto) Eos # (Auto) Baso # (Auto) Abs Immat Gran (auto) Absolute Neuts (auto) Absolute Nucleated RBC Nucleated RBC % (auto) Anion Gap Estim Creat Clear Calc Estimated GFR POC Glucose Random Glucose Lactic Acid Lactic Acid F/U @ 2Hr Calcium Magnesium Total Bilirubin Direct Bilirubin AST ALT Alkaline Phosphatase Ammonia 37 Troponin I High Sens B-Natriuretic Peptide Total Protein Albumin Lipase Ethyl Alcohol COVID-19 (HELENA) Negative COVID-19 Clin Com See Note Blood Type O Positive Antibody Screen NEGATIVE 07/19/22 17:31 MCV MCH MCHC RDW Plt Count MPV Immature Gran % (Auto) Neut % (Auto) Lymph % (Auto) [place] % (Auto) Eos % (Auto) Baso % (Auto) Lymph # (Auto) [place] # (Auto) Eos # (Auto) Baso # (Auto) Abs Immat Gran (auto) Absolute Neuts (auto) Absolute Nucleated RBC Nucleated RBC % (auto) Anion Gap Estim Creat Clear Calc Estimated GFR POC Glucose Random Glucose Lactic Acid Lactic Acid F/U @ 2Hr 3.0 H* Calcium Magnesium Total Bilirubin Direct Bilirubin AST ALT Alkaline Phosphatase Ammonia Troponin I High Sens B-Natriuretic Peptide Total Protein Albumin Lipase Ethyl Alcohol COVID-19 (HELENA) COVID-19 Clin Com Blood Type Antibody Screen Imaging Radiologist's Impressions: Impressions Chest X-Ray 07/19/22 15:22 IMPRESSION: Unremarkable examination. Cervical Spine CT 07/19/22 15:30 IMPRESSION: * No acute intracranial bleed or territorial infarction. * No acute fracture or traumatic malalignment of the cervical spine. Head CT 07/19/22 15:30 IMPRESSION: * No acute intracranial bleed or territorial infarction. * No acute fracture or traumatic malalignment of the cervical spine. Abdomen Ultrasound 07/19/22 16:42 IMPRESSION: Cholelithiasis. Fluid in the gallbladder wall and pericholecystic fluid. Positive ultrasound Hill's sign. Findings consistent with acute cholecystitis. Abdomen/Pelvis CT 07/19/22 17:08 IMPRESSION: 1. Cholelithiasis, gallbladder wall thickening, pericholecystic edema/fluid. Findings are suspicious for acute cholecystitis. An ultrasound of the abdomen has already been obtained, with sonographic findings reported as consistent with acute cholecystitis. See ultrasound report. 2. Severe colonic diverticulosis without evidence of diverticulitis. 3. Bilateral nonobstructing renal calculi. Fleischner guidelines were followed. Assessment and Plan (1) Acute calculous cholecystitis: Status: Acute Plan 77-year-old gentleman with past medical history significant for psoriatic arthritis, history of atrial fibrillation not on anticoagulation, diabetes mellitus type 2 on insulin, normal pressure hydrocephalus with NEGATIVE RESTORER shunt, brought in to [facility] by EMS due to generalized weakness, in the ER workup suggestive of acute cholecystitis will be admitted for severe sepsis due to cholecystitis. Severe sepsis due to acute cholecystitis denies fever, no chills, no abdominal pain, noted to have leukocytosis, tachycardia, tachypnea, lactic acidosis and elevated LFTs CT abdomen and pelvis as well as abdominal ultrasound consistent with acute cholecystitis. admit to telemetry, IV Zosyn initiated 07/19 , IV fluids follow LFTs, CBC and BMP Seen by GI Dr. Martinez she recommend to repeat LFTs at a.m. and if LFTs remain elevated then patient will undergo ERCP to rule out common bile duct stone prior to cholecystectomy. seen by General surgery they agree with IV antibiotics/ IV fluids. paroxysmal atrial fibrillation, continue metoprolol patient was recently discharged on amiodarone common not seen on [facility], not on anticoagulation since had brief episode of AFib during last hospitalization. Diabetes mellitus type 2 on insulin blood sugars stable will hold Lantus,metformin, glipizide and Farxiga since patient NPO will place on insulin sliding scale and monitor blood sugars. History of psoriatic arthritis hold Enbrel and methotrexate Hypertension on multiple antihypertensive including amlodipine 10 mg, lisinopril 5 mg , Lasix 40 mg and metoprolol 50mg bid. hyperlipidemia will hold Lipitor DVT prophylaxis will place on compression boots code status full code patient will need 2 night inpatient stay due to severe sepsis /acute cholecystitis requiring IV hydration IV antibiotics and possible surgical intervention. Time Spent With Patient Time: Total time managing care of this patient today ____ minutes. Quality Stroke Does the patient have a stroke diagnosis?: No VTE Prior VTE?: No VTE Risk Level:: Medical - moderate - high VTE Device Contraindication: N/A - Device Ordered VTE Drug Contraindication: Treatment Not Indicated
[2022-07-19] MEDS: Lactated Ringers 1,000 ML 100 ML IVCONT (18:31)
[2022-07-19 18:42] LABS: Glucose, Whole Blood 148 mg/dL (60-115)
[2022-07-19 18:50] LABS: Appearance Urine Clear; Color Urine Yellow; Glucose Urine UA >=1000 mg/dL (Negative); Leukocyte Esterase Urine Negative (Negative); Nitrite Urine Negative (Negative); PH 7.5 (5.0-9.0); Specific Gravity - Urine >= 1.030 (1.005-1.025); UMIC TRIGGER UACC YES; Urine Blood Negative (Negative); Urine Ketones Negative (Negative); Urine Protein Trace mg/dL (Neg-Trace)
[2022-07-19 18:57] LABS: Bacteria Urine None Seen (None Seen); Hyaline Casts Urine 0-2 /LPF (0-2); Squamous Epithelial Cell Urine 0-2 /HPF (0-2); WBC Urine 0-5 /HPF (0-5)
[2022-07-19 18:59] LABS: RBC Urine 0-2 /HPF (0-2)
[2022-07-19 19:35] LABS: Reflex Lactate? 2 Y
[2022-07-19 20:03] VITALS: BP 121/56; PULSE 76; RESP 18; TEMP 37; O2SAT 97
[2022-07-19 20:09] LABS: Glucose, Whole Blood 130 mg/dL (60-115)
[2022-07-19 21:20] LABS: Glucose, Whole Blood 138 mg/dL (60-115)
[2022-07-19 21:32] LABS: ~Lactic Acid-LAB USE ONLY 2.2 mmol/L (0.5-2.0)
--- NOTE | 2022-07-19 21:33 | PC.NURSE ---
Telephone call received from the lab with critical lactic acid level of 2.2. Dr Parra notified via [employer] message.
[2022-07-19 22:02] VITALS: BP 117/56; PULSE 75; RESP 14; TEMP 36.9; O2SAT 95
[2022-07-19] MEDS: Piperacillin Sodium/Tazobactam 3.375 GM in 0.9 % Sodium Chloride 50 ML IV (22:41)
[2022-07-19] MEDS: Metoprolol Tartrate 50 MG TABLET PO (22:41)
[2022-07-20 00:07] LABS: Glucose, Whole Blood 116 mg/dL (60-115)
[2022-07-20] MEDS: Piperacillin Sodium/Tazobactam 3.375 GM in 0.9 % Sodium Chloride 50 ML IV ×2 (03:26→10:43)
--- NOTE | 2022-07-20 03:58 | PC.NURSE ---
Patient currently on room air with oxygen saturation stable at 95%
--- NOTE | 2022-07-20 04:19 | PC.NURSE ---
Patient is alert and oriented x3, VSS. Patient denies any pain. O2 Sat dropped to 89-90% on RA- no SOB, no s/s of acute respiratory distress noted. O2 re applied at 2 LPM via NC with improvement in O2 Sat reading noted 94-96%. Patient noted to be incontinent of urine. Bed linens changed, pericare provided. [place] catheter applied to prevent skin breakdown and promote comfort. Right flank T insertion drain site covered with dry, clean, intact dressing. There is scant amount of bile colored drainage noted in T drain bulb. Patient medicated per MAR, call ramirez within patient's reach.
[2022-07-20 05:26] LABS: Hematocrit 34.5 % (42.0-52.0); Hemoglobin 11.5 g/dl (14.0-18.0); Mean Corpuscular HGB Conc 33.3 g/dl (31.0-36.0); Mean Corpuscular Hemoglobin 30.6 pg (27.0-33.0); Mean Corpuscular Volume 91.8 fL (80.0-98.0); Mean Platelet Volume 9.7 fL (9.4-12.4); Platelet Count 161 X10*3/uL (160-400); Red Blood Count 3.76 X10*6/uL (4.60-5.80); Red Cell Distribution Width 15.6 % (11.0-16.0); White Blood Count 13.5 X10*3/uL (4.8-10.8)
[2022-07-20 05:50] LABS: Alanine Aminotransferase 369 U/L (0-40); Alkaline Phosphatase 144 U/L (39-117); Anion Gap 11 (12-20); Aspartate Amino Transferase 254 U/L (5-37); Bilirubin Direct 2.3 mg/dL (0.0-0.5); Bilirubin Total 3.3 mg/dL (0.0-1.0); Blood Urea Nitrogen 18 mg/dL (9-16); Calcium 8.3 mg/dL (8.4-10.2); Carbon Dioxide 24 mmol/L (22-29); Chloride 110 mmol/L (96-108); Creatinine Clr Calc Pharmacy 58.7; Estimated Glomerular Filt Rate > 60; Glucose Random 72 mg/dL (60-115); Potassium 3.7 mmol/L (3.3-5.1); Sodium 141 mmol/L (135-145); Total Protein 5.1 g/dL (6.5-8.0)
--- NOTE | 2022-07-20 06:00 | PC.NURSE ---
POC 65. Patient asymptomatic for hypoglycemia. D 10% is not available. Dr. Parra contacted. Per RN to administer Glutose 15 PO.
[2022-07-20] MEDS: Glucose Gel 15 GM GEL..GRAM. PO (06:03)
[2022-07-20 06:48] LABS: Glucose, Whole Blood 111 mg/dL (60-115)
[2022-07-20 06:48] LABS: Glucose, Whole Blood 71 mg/dL (60-115)
[2022-07-20 06:48] LABS: Glucose, Whole Blood 63 mg/dL (60-115)
[2022-07-20 07:22] LABS: Glucose, Whole Blood 110 mg/dL (60-115)
[2022-07-20 07:32] VITALS: BP 112/58; PULSE 68; RESP 18; O2SAT 95
[2022-07-20] MEDS: Lactated Ringers 1,000 ML 100 ML IVCONT ×2 (07:45→17:14)
--- NOTE | 2022-07-20 07:49 | PC.NURSE ---
Alert and oriented, resp even and unlabored. Pt offering no complaints, resting comfortably in bed. LR running at this time. Call ramirez within reach.
--- NOTE | 2022-07-20 07:51 | P.PNGS_ITS ---
Subjective Subjective Date of Service: 07/20/22 Interval history: The patient is a 77-year-old gentleman with a complex medical history including psoriatic arthritis requiring biologic agent, atrial fibrillation on anticoagulation,? DM2, normal pressure hydrocephalus with [employer] shunt, protein malnutrition, JASE, HTN, poorly controlled type 2 diabetes with a hemoglobin A1c of 8.8, cardiomegally found down presenting with severe lactic acidosis, GAIL & acute calculus cholecystitis.? The patient was admitted to the intensive care unit in April, and discharged to rehab.? He developed acute calculous cholecystitis and due to comorbidities underwent percutaneous cholecystostomy.? Patient reports he is doing better this morning, but is upset because he wants to have his gallbladder out and remove the cholecystostomy tube. At the moment, he does not seem to recall the previous discussion regarding his comorbidities that could lead to complication and possible fatality. Lisandra (daughters at [phone]). The patient was last seen as an outpatient in the office on 06/18/2022 and the options of transferring his care to a surgeon who works with his PCP was reviewrambo holder but declined. This morning he continues to deny any abdominal pain. There has been no feedback from his PCP regarding his diabetes or other health issues on the outpatient side. Dr. Mariee saw the patient yesterday and noted the patient did not have an acute abdomen in spite of CT findings and ultrasound findings. This morning's exam does not demonstrate any abdominal pain. Physical Exam Vital Signs: Vital Signs: Last Vital Signs Temp 98.4 F 07/19/22 22:02 Pulse 68 07/20/22 07:32 Resp 18 07/20/22 07:32 BP 112/58 L 07/20/22 07:32 Pulse Ox 95 07/20/22 07:32 O2 Del Method Room Air 07/20/22 07:32 O2 Flow Rate 2 07/19/22 22:02 BMI result Body Mass Index 25.1 On exam, the patient is nontoxic. HEENT patient is upset He is anicteric He is in no acute respiratory distress He is lungs are clear and equal anteriorly Heart is irregular Abdomen is obese, soft and nontender. BITA drain has bilious material that is not purulence Objective Data Active Medications Acetaminophen (Acetaminophen 325 Mg Tablet) 650 mg PO Q6H PRN PRN Reason: Pain, Mild (Pain Scale 1-3) Glucose (Glucose Gel 15 Gm Gel..Gram.) 15 gm PO Q15M PRN; Protocol PRN Reason: per Hypoglycemia Standing Ord. Last Admin: 07/20/22 06:03 Dose: 15 gm Documented By: RANDY Piperacillin Sod/Tazobactam (Sod 3.375 gm/ Sodium Chloride) 50 mls @ 100 mls/hr IV Q6H [facility] Last Infusion: 07/20/22 03:56 Dose: 0 mls/hr Documented By: RANDY Dextrose (D10) 250 mls @ 750 mls/hr IV Q15M PRN; Protocol PRN Reason: per Hypoglycemia Standing Ord. Lactated Ringer's (Lr) 1,000 mls @ 100 mls/hr IVCONT .Q10H [facility] Last Admin: 07/20/22 07:45 Dose: 100 mls/hr Documented By: KAIT Insulin Human Lispro (Insulin Lispro 100 Unit/Ml 3 Ml Vial) 0 unit SUBCUT Q6H [facility]; Protocol Last Admin: 07/20/22 07:05 Dose: Not Given Documented By: KAIT Non-Admin Reason: No Insulin Coverage Melatonin (Melatonin 3 Mg Tablet) 6 mg PO BEDTIME PRN PRN Reason: Insomnia Metoprolol Tartrate (Metoprolol Tartrate 50 Mg Tablet) 50 mg PO BID [facility]; Protocol Last Admin: 07/19/22 22:41 Dose: 50 mg Documented By: RANDY Morphine Sulfate (Morphine Sulfate 4 Mg/Ml Cartridge) 3 mg IVPUSH Q4H PRN; Protocol PRN Reason: Pain, Severe (Pain Scale 7-10) Ondansetron HCl (Ondansetron Hcl 4 Mg/2 Ml Vial) 4 mg IVPUSH Q8H PRN PRN Reason: Nausea and Vomiting Pharmacy Consult (Consult Rx Perform Med Rec) 1 each MISCELLANE ONCE PRN PRN Reason: Consult order Sodium Chloride (0.9 % Sodium Chloride Flush 3 Ml Syringe) 3 ml IVFLUSH QSHIFT [facility] Last Admin: 07/20/22 07:05 Dose: Not Given Documented By: KAIT Non-Admin Reason: IV Running Labs 07/20/22 05:19 07/20/22 05:19 Labs: Laboratory Results - last 24 hr 07/19/22 07/19/22 07/19/22 14:49 15:05 15:05 MCV 93.3 MCH 30.8 MCHC 33.0 RDW 15.4 Plt Count 220 MPV 9.6 Immature Gran % (Auto) 0.6 H Neut % (Auto) 89.9 H Lymph % (Auto) 1.9 L Stark % (Auto) 7.4 Eos % (Auto) 0.0 Baso % (Auto) 0.2 Lymph # (Auto) 0.3 L Stark # (Auto) 1.3 H Eos # (Auto) 0.0 Baso # (Auto) 0.0 Abs Immat Gran (auto) 0.10 H Absolute Neuts (auto) 15.5 H Absolute Nucleated RBC 0.000 Nucleated RBC % (auto) 0.0 Anion Gap 15 Estim Creat Clear Calc 48.3 Estimated GFR 54 POC Glucose 163 H Random Glucose 180 H Lactic Acid Lactic Acid F/U @ 2Hr Lactic Acid F/U @ 4Hr Calcium 9.9 D Magnesium 1.7 Total Bilirubin 2.3 H Direct Bilirubin 1.5 H AST 553 H ALT 462 H Alkaline Phosphatase 240 H Ammonia Troponin I High Sens B-Natriuretic Peptide Total Protein 6.7 Albumin 3.9 Lipase 29 Urine Color Urine Appearance Urine pH Ur Specific [place] Urine Protein Urine Glucose (UA) Urine Ketones Urine Blood Urine Nitrite Ur Leukocyte Esterase Urine RBC Urine WBC Ur Squamous Epith Cells Urine Bacteria Hyaline Casts Ethyl Alcohol < 10 COVID-19 ([facility]) COVID-19 Clin Com Blood Type Antibody Screen 07/19/22 07/19/22 07/19/22 15:05 15:05 15:05 MCV MCH MCHC RDW Plt Count MPV Immature Gran % (Auto) Neut % (Auto) Lymph % (Auto) Stark % (Auto) Eos % (Auto) Baso % (Auto) Lymph # (Auto) Stark # (Auto) Eos # (Auto) Baso # (Auto) Abs Immat Gran (auto) Absolute Neuts (auto) Absolute Nucleated RBC Nucleated RBC % (auto) Anion Gap Estim Creat Clear Calc Estimated GFR POC Glucose Random Glucose Lactic Acid 3.7 H* Lactic Acid F/U @ 2Hr Lactic Acid F/U @ 4Hr Calcium Magnesium Total Bilirubin Direct Bilirubin AST ALT Alkaline Phosphatase Ammonia Troponin I High Sens 4.0 D B-Natriuretic Peptide 58 Total Protein Albumin Lipase Urine Color Urine Appearance Urine pH Ur Specific [place] Urine Protein Urine Glucose (UA) Urine Ketones Urine Blood Urine Nitrite Ur Leukocyte Esterase Urine RBC Urine WBC Ur Squamous Epith Cells Urine Bacteria Hyaline Casts Ethyl Alcohol COVID-19 ([facility]) COVID-19 Clin Com Blood Type Antibody Screen 07/19/22 07/19/22 07/19/22 15:05 15:05 15:05 MCV MCH MCHC RDW Plt Count MPV Immature Gran % (Auto) Neut % (Auto) Lymph % (Auto) Stark % (Auto) Eos % (Auto) Baso % (Auto) Lymph # (Auto) Stark # (Auto) Eos # (Auto) Baso # (Auto) Abs Immat Gran (auto) Absolute Neuts (auto) Absolute Nucleated RBC Nucleated RBC % (auto) Anion Gap Estim Creat Clear Calc Estimated GFR POC Glucose Random Glucose Lactic Acid Lactic Acid F/U @ 2Hr Lactic Acid F/U @ 4Hr Calcium Magnesium Total Bilirubin Direct Bilirubin AST ALT Alkaline Phosphatase Ammonia 37 Troponin I High Sens B-Natriuretic Peptide Total Protein Albumin Lipase Urine Color Urine Appearance Urine pH Ur Specific [place] Urine Protein Urine Glucose (UA) Urine Ketones Urine Blood Urine Nitrite Ur Leukocyte Esterase Urine RBC Urine WBC Ur Squamous Epith Cells Urine Bacteria Hyaline Casts Ethyl Alcohol COVID-19 ([facility]) Negative COVID-19 Clin Com See Note Blood Type O Positive Antibody Screen NEGATIVE 07/19/22 07/19/22 07/19/22 17:31 18:24 18:38 MCV MCH MCHC RDW Plt Count MPV Immature Gran % (Auto) Neut % (Auto) Lymph % (Auto) Stark % (Auto) Eos % (Auto) Baso % (Auto) Lymph # (Auto) Stark # (Auto) Eos # (Auto) Baso # (Auto) Abs Immat Gran (auto) Absolute Neuts (auto) Absolute Nucleated RBC Nucleated RBC % (auto) Anion Gap Estim Creat Clear Calc Estimated GFR POC Glucose 148 H Random Glucose Lactic Acid Lactic Acid F/U @ 2Hr 3.0 H* Lactic Acid F/U @ 4Hr Calcium Magnesium Total Bilirubin Direct Bilirubin AST ALT Alkaline Phosphatase Ammonia Troponin I High Sens B-Natriuretic Peptide Total Protein Albumin Lipase Urine Color Yellow Urine Appearance Clear Urine pH 7.5 Ur Specific [place] >= 1.030 H Urine Protein Trace Urine Glucose (UA) >=1000 H Urine Ketones Negative Urine Blood Negative Urine Nitrite Negative Ur Leukocyte Esterase Negative Urine RBC 0-2 Urine WBC 0-5 Ur Squamous Epith Cells 0-2 Urine Bacteria None Seen Hyaline Casts 0-2 Ethyl Alcohol COVID-19 ([facility]) COVID-19 [facility] Com Blood Type Antibody Screen 07/19/22 07/19/22 07/19/22 20:02 21:03 21:16 MCV MCH MCHC RDW Plt Count MPV Immature Gran % (Auto) Neut % (Auto) Lymph % (Auto) Stark % (Auto) Eos % (Auto) Baso % (Auto) Lymph # (Auto) Stark # (Auto) Eos # (Auto) Baso # (Auto) Abs Immat Gran (auto) Absolute Neuts (auto) Absolute Nucleated RBC Nucleated RBC % (auto) Anion Gap Estim Creat Clear Calc Estimated GFR POC Glucose 130 H 138 H Random Glucose Lactic Acid Lactic Acid F/U @ 2Hr Lactic Acid F/U @ 4Hr 2.2 H* Calcium Magnesium Total Bilirubin Direct Bilirubin AST ALT Alkaline Phosphatase Ammonia Troponin I High Sens B-Natriuretic Peptide Total Protein Albumin Lipase Urine Color Urine Appearance Urine pH Ur Specific [place] Urine Protein Urine Glucose (UA) Urine Ketones Urine Blood Urine Nitrite Ur Leukocyte Esterase Urine RBC Urine WBC Ur Squamous Epith Cells Urine Bacteria Hyaline Casts Ethyl Alcohol COVID-19 ([facility]) COVID-19 [facility] Com Blood Type Antibody Screen 07/20/22 07/20/22 07/20/22 00:01 05:19 05:19 MCV 91.8 MCH 30.6 MCHC 33.3 RDW 15.6 Plt Count 161 D MPV 9.7 Immature Gran % (Auto) Neut % (Auto) Lymph % (Auto) Stark % (Auto) Eos % (Auto) Baso % (Auto) Lymph # (Auto) Stark # (Auto) Eos # (Auto) Baso # (Auto) Abs Immat Gran (auto) Absolute Neuts (auto) Absolute Nucleated RBC 0.000 Nucleated RBC % (auto) 0.0 Anion Gap 11 L Estim Creat Clear Calc 58.7 Estimated GFR > 60 POC Glucose 116 H Random Glucose 72 Lactic Acid Lactic Acid F/U @ 2Hr Lactic Acid F/U @ 4Hr Calcium 8.3 L D Magnesium Total Bilirubin 3.3 H Direct Bilirubin 2.3 H AST 254 H ALT 369 H Alkaline Phosphatase 144 H Ammonia Troponin I High Sens B-Natriuretic Peptide Total Protein 5.1 L Albumin 3.0 L Lipase Urine Color Urine Appearance Urine pH Ur Specific [place] Urine Protein Urine Glucose (UA) Urine Ketones Urine Blood Urine Nitrite Ur Leukocyte Esterase Urine RBC Urine WBC Ur Squamous Epith Cells Urine Bacteria Hyaline Casts Ethyl Alcohol COVID-19 ([facility]) [facility] Blood Type Antibody Screen 07/20/22 07/20/22 07/20/22 05:44 06:21 06:42 MCV MCH MCHC RDW Plt Count MPV Immature Gran % (Auto) Neut % (Auto) Lymph % (Auto) Stark % (Auto) Eos % (Auto) Baso % (Auto) Lymph # (Auto) Stark # (Auto) Eos # (Auto) Baso # (Auto) Abs Immat Gran (auto) Absolute Neuts (auto) Absolute Nucleated RBC Nucleated RBC % (auto) Anion Gap Estim Creat Clear Calc Estimated GFR POC Glucose 63 71 111 Random Glucose Lactic Acid Lactic Acid F/U @ 2Hr Lactic Acid F/U @ 4Hr Calcium Magnesium Total Bilirubin Direct Bilirubin AST ALT Alkaline Phosphatase Ammonia Troponin I High Sens B-Natriuretic Peptide Total Protein Albumin Lipase Urine Color Urine Appearance Urine pH Ur Specific [place] Urine Protein Urine Glucose (UA) Urine Ketones Urine Blood Urine Nitrite Ur Leukocyte Esterase Urine RBC Urine WBC Ur Squamous Epith Cells Urine Bacteria Hyaline Casts Ethyl Alcohol COVID-19 ([facility]) [facility] Blood Type Antibody Screen 07/20/22 07:18 MCV MCH MCHC RDW Plt Count MPV Immature Gran % (Auto) Neut % (Auto) Lymph % (Auto) Stark % (Auto) Eos % (Auto) Baso % (Auto) Lymph # (Auto) Stark # (Auto) Eos # (Auto) Baso # (Auto) Abs Immat Gran (auto) Absolute Neuts (auto) Absolute Nucleated RBC Nucleated RBC % (auto) Anion Gap Estim Creat Clear Calc Estimated GFR POC Glucose 110 Random Glucose Lactic Acid Lactic Acid F/U @ 2Hr Lactic Acid F/U @ 4Hr Calcium Magnesium Total Bilirubin Direct Bilirubin AST ALT Alkaline Phosphatase Ammonia Troponin I High Sens B-Natriuretic Peptide Total Protein Albumin Lipase Urine Color Urine Appearance Urine pH Ur Specific [place] Urine Protein Urine Glucose (UA) Urine Ketones Urine Blood Urine Nitrite Ur Leukocyte Esterase Urine RBC Urine WBC Ur Squamous Epith Cells Urine Bacteria Hyaline Casts Ethyl Alcohol COVID-19 ([facility]) [facility] Blood Type Antibody Screen Procedures Date of Service Date of Service: 07/20/22 Progress Note: A&P Assessment and plan (1) Abnormal LFTs: Status: Acute (2) Acute alteration in mental status: Status: Acute (3) Unable to ambulate: Status: Acute (4) Poorly controlled type 2 diabetes mellitus: Status: Acute (5) Frailty syndrome in geriatric patient: Status: Acute (6) Anticoagulated: Status: Acute (7) Psoriatic arthritis: Status: Acute (8) Cardiomegaly: Status: Acute (9) Diabetes: Status: Acute (10) 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, fpc, current use: Status: Acute (11) Normal pressure hydrocephalus: Status: Acute (12) Obstructive sleep apnea: Status: Acute (13) Protein malnutrition: Status: Acute Plan The patient is anticoagulated at this time and I have ordered a repeat hemoglobin A1c and pre-albumin since he has a history of protein malnutrition. His comorbidities put him at significant risk for complication and postoperatively, which it was explained to the patient and his family, consequently, agreed with the plan and they wanted him optimized before considering surgery. This morning, the patient does not recall these discussions. The patient's abdomen is minimally tender, so I am not sure that the diagnostic imaging reflects the patient's pathology. Hold anticoagulation for now in case a repositioning of the cholecystostomy tube is required. Await repeat hemoglobin A1c and pre-albumin. Will follow. Time Spent With Patient Time: Total time managing care of this patient today ____ minutes. Quality Stroke Does the patient have a stroke diagnosis?: No VTE Prior VTE?: No VTE Risk Level:: Medical - moderate - high VTE Device Contraindication: N/A - Device Ordered VTE Drug Contraindication: Treatment Not Indicated
[2022-07-20 08:00] VITALS: BP 131/64; PULSE 74; RESP 20; TEMP 36.3; O2SAT 97
[2022-07-20] MEDS: Metoprolol Tartrate 50 MG TABLET PO ×2 (10:44→20:15)
[2022-07-20 11:02] LABS: Estimated Average Glucose 180 mg/dL; Hemoglobin A1c % 7.9 %
[2022-07-20 11:18] VITALS: BP 148/70; PULSE 62; RESP 20; TEMP 36.8; O2SAT 95
[2022-07-20 11:41] LABS: Glucose, Whole Blood 69 mg/dL (60-115)
[2022-07-20] MEDS: Dextrose 10 % 250 ML 750 ML IV ×3 (11:43→23:54)
--- NOTE | 2022-07-20 12:10 | P.PNIM_ITS ---
Subjective Subjective Date of Service: 07/20/22 Interval History: Being followed for elevated LFTs and sepsis, patient resting comfortably in bed offers no acute complaints, denies abdominal pain, no nausea, no vomiting is NPO on IV fluids no acute events overnight. Review of Systems Review of Systems: Yes all other systems are reviewed and are negative Physical Exam Vital Signs: Vital Signs: Last Vital Signs Temp 98.3 F 07/20/22 11:18 Pulse 62 07/20/22 11:18 Resp 20 07/20/22 11:18 BP 148/70 H 07/20/22 11:18 Pulse Ox 95 07/20/22 11:18 O2 Del Method Nasal Cannula 07/20/22 11:18 O2 Flow Rate 3 07/20/22 11:18 BMI result Body Mass Index 25.1 Const: Other: General? awake alert x3, resting comfortably in no acute distress. Neck? supple no JVD. CVS? regular rate rhythm, Respiratory lungs clear to auscultation, no respiratory distress, no wheeze, no rhonchi. Gastrointestinal abdomen soft, no tenderness right upper quadrant, bowel sounds audible, no guarding , no rigidity, cholecystostomy tube in place with small bilious drainage Extremities no edema. Neuro nonfocal ,moving all 4 extremity speech clear. Skin no rash psych appropriate affect Objective Data Active Medications Acetaminophen (Acetaminophen 325 Mg Tablet) 650 mg PO Q6H PRN PRN Reason: Pain, Mild (Pain Scale 1-3) Glucose (Glucose Gel 15 Gm Gel..Gram.) 15 gm PO Q15M PRN; Protocol PRN Reason: per Hypoglycemia Standing Ord. Last Admin: 07/20/22 06:03 Dose: 15 gm Documented By: RANDY Piperacillin Sod/Tazobactam (Sod 3.375 gm/ Sodium Chloride) 50 mls @ 100 mls/hr IV Q6H [facility] Last Infusion: 07/20/22 11:35 Dose: 0 mls/hr Documented By: LESLIE Dextrose (D10) 250 mls @ 750 mls/hr IV Q15M PRN; Protocol PRN Reason: per Hypoglycemia Standing Ord. Last Admin: 07/20/22 11:43 Dose: 750 mls/hr Documented By: LESLIE Lactated Ringer's (Lr) 1,000 mls @ 100 mls/hr IVCONT .Q10H [facility] Last Admin: 07/20/22 07:45 Dose: 100 mls/hr Documented By: KAIT Insulin Human Lispro (Insulin Lispro 100 Unit/Ml 3 Ml Vial) 0 unit SUBCUT Q6H [facility]; Protocol Last Admin: 07/20/22 11:46 Dose: Not Given Documented By: LESLIE Non-Admin Reason: No Insulin Coverage Melatonin (Melatonin 3 Mg Tablet) 6 mg PO BEDTIME PRN PRN Reason: Insomnia Metoprolol Tartrate (Metoprolol Tartrate 50 Mg Tablet) 50 mg PO BID [facility]; Protocol Last Admin: 07/20/22 10:44 Dose: 50 mg Documented By: LESLIE Morphine Sulfate (Morphine Sulfate 4 Mg/Ml Cartridge) 3 mg IVPUSH Q4H PRN; Protocol PRN Reason: Pain, Severe (Pain Scale 7-10) Ondansetron HCl (Ondansetron Hcl 4 Mg/2 Ml Vial) 4 mg IVPUSH Q8H PRN PRN Reason: Nausea and Vomiting Pharmacy Consult (Consult Rx Perform Med Rec) 1 each MISCELLANE ONCE PRN PRN Reason: Consult order Sodium Chloride (0.9 % Sodium Chloride Flush 3 Ml Syringe) 3 ml IVFLUSH QSHIFT [facility] Last Admin: 07/20/22 07:05 Dose: Not Given Documented By: KAIT Non-Admin Reason: IV Running Labs 07/20/22 05:19 07/20/22 05:19 Labs: Laboratory Results - last 24 hr 07/19/22 07/19/22 07/19/22 14:49 15:05 15:05 MCV 93.3 MCH 30.8 MCHC 33.0 RDW 15.4 Plt Count 220 MPV 9.6 Immature Gran % (Auto) 0.6 H Neut % (Auto) 89.9 H Lymph % (Auto) 1.9 L [place] % (Auto) 7.4 Eos % (Auto) 0.0 Baso % (Auto) 0.2 Lymph # (Auto) 0.3 L [place] # (Auto) 1.3 H Eos # (Auto) 0.0 Baso # (Auto) 0.0 Abs Immat Gran (auto) 0.10 H Absolute Neuts (auto) 15.5 H Absolute Nucleated RBC 0.000 Nucleated RBC % (auto) 0.0 Anion Gap 15 Estim Creat Clear Calc 48.3 Estimated GFR 54 POC Glucose 163 H Random Glucose 180 H Estimat Average Glucose Hemoglobin A1c % Lactic Acid Lactic Acid F/U @ 2Hr Lactic Acid F/U @ 4Hr Calcium 9.9 D Magnesium 1.7 Total Bilirubin 2.3 H Direct Bilirubin 1.5 H AST 553 H ALT 462 H Alkaline Phosphatase 240 H Ammonia Troponin I High Sens B-Natriuretic Peptide Total Protein 6.7 Albumin 3.9 Prealbumin Lipase 29 Urine Color Urine Appearance Urine pH Ur Specific [place] Urine Protein Urine Glucose (UA) Urine Ketones Urine Blood Urine Nitrite Ur Leukocyte Esterase Urine RBC Urine WBC Ur Squamous Epith Cells Urine Bacteria Hyaline Casts Ethyl Alcohol < 10 COVID-19 (HELENA) COVID-[employer] Blood Type Antibody Screen 07/19/22 07/19/22 07/19/22 15:05 15:05 15:05 MCV MCH MCHC RDW Plt Count MPV Immature Gran % (Auto) Neut % (Auto) Lymph % (Auto) [place] % (Auto) Eos % (Auto) Baso % (Auto) Lymph # (Auto) [place] # (Auto) Eos # (Auto) Baso # (Auto) Abs Immat Gran (auto) Absolute Neuts (auto) Absolute Nucleated RBC Nucleated RBC % (auto) Anion Gap Estim Creat Clear Calc Estimated GFR POC Glucose Random Glucose Estimat Average Glucose Hemoglobin A1c % Lactic Acid 3.7 H* Lactic Acid F/U @ 2Hr Lactic Acid F/U @ 4Hr Calcium Magnesium Total Bilirubin Direct Bilirubin AST ALT Alkaline Phosphatase Ammonia Troponin I High Sens 4.0 D B-Natriuretic Peptide 58 Total Protein Albumin Prealbumin Lipase Urine Color Urine Appearance Urine pH Ur Specific [place] Urine Protein Urine Glucose (UA) Urine Ketones Urine Blood Urine Nitrite Ur Leukocyte Esterase Urine RBC Urine WBC Ur Squamous Epith Cells Urine Bacteria Hyaline Casts Ethyl Alcohol COVID-19 (HELENA) COVID-19 [employer] Blood Type Antibody Screen 07/19/22 07/19/22 07/19/22 15:05 15:05 15:05 MCV MCH MCHC RDW Plt Count MPV Immature Gran % (Auto) Neut % (Auto) Lymph % (Auto) [place] % (Auto) Eos % (Auto) Baso % (Auto) Lymph # (Auto) [place] # (Auto) Eos # (Auto) Baso # (Auto) Abs Immat Gran (auto) Absolute Neuts (auto) Absolute Nucleated RBC Nucleated RBC % (auto) Anion Gap Estim Creat Clear Calc Estimated GFR POC Glucose Random Glucose Estimat Average Glucose Hemoglobin A1c % Lactic Acid Lactic Acid F/U @ 2Hr Lactic Acid F/U @ 4Hr Calcium Magnesium Total Bilirubin Direct Bilirubin AST ALT Alkaline Phosphatase Ammonia 37 Troponin I High Sens B-Natriuretic Peptide Total Protein Albumin Prealbumin Lipase Urine Color Urine Appearance Urine pH Ur Specific [place] Urine Protein Urine Glucose (UA) Urine Ketones Urine Blood Urine Nitrite Ur Leukocyte Esterase Urine RBC Urine WBC Ur Squamous Epith Cells Urine Bacteria Hyaline Casts Ethyl Alcohol COVID-19 (HELENA) Negative COVID-19 Clin Com See Note Blood Type O Positive Antibody Screen NEGATIVE 07/19/22 07/19/22 07/19/22 17:31 18:24 18:38 MCV MCH MCHC RDW Plt Count MPV Immature Gran % (Auto) Neut % (Auto) Lymph % (Auto) [place] % (Auto) Eos % (Auto) Baso % (Auto) Lymph # (Auto) [place] # (Auto) Eos # (Auto) Baso # (Auto) Abs Immat Gran (auto) Absolute Neuts (auto) Absolute Nucleated RBC Nucleated RBC % (auto) Anion Gap Estim Creat Clear Calc Estimated GFR POC Glucose 148 H Random Glucose Estimat Average Glucose Hemoglobin A1c % Lactic Acid Lactic Acid F/U @ 2Hr 3.0 H* Lactic Acid F/U @ 4Hr Calcium Magnesium Total Bilirubin Direct Bilirubin AST ALT Alkaline Phosphatase Ammonia Troponin I High Sens B-Natriuretic Peptide Total Protein Albumin Prealbumin Lipase Urine Color Yellow Urine Appearance Clear Urine pH 7.5 Ur Specific [place] >= 1.030 H Urine Protein Trace Urine Glucose (UA) >=1000 H Urine Ketones Negative Urine Blood Negative Urine Nitrite Negative Ur Leukocyte Esterase Negative Urine RBC 0-2 Urine WBC 0-5 Ur Squamous Epith Cells 0-2 Urine Bacteria None Seen Hyaline Casts 0-2 Ethyl Alcohol COVID-19 (HELENA) COVID-19 Clin Com Blood Type Antibody Screen 07/19/22 07/19/22 07/19/22 20:02 21:03 21:16 MCV MCH MCHC RDW Plt Count MPV Immature Gran % (Auto) Neut % (Auto) Lymph % (Auto) [place] % (Auto) Eos % (Auto) Baso % (Auto) Lymph # (Auto) [place] # (Auto) Eos # (Auto) Baso # (Auto) Abs Immat Gran (auto) Absolute Neuts (auto) Absolute Nucleated RBC Nucleated RBC % (auto) Anion Gap Estim Creat Clear Calc Estimated GFR POC Glucose 130 H 138 H Random Glucose Estimat Average Glucose Hemoglobin A1c % Lactic Acid Lactic Acid F/U @ 2Hr Lactic Acid F/U @ 4Hr 2.2 H* Calcium Magnesium Total Bilirubin Direct Bilirubin AST ALT Alkaline Phosphatase Ammonia Troponin I High Sens B-Natriuretic Peptide Total Protein Albumin Prealbumin Lipase Urine Color Urine Appearance Urine pH Ur Specific [place] Urine Protein Urine Glucose (UA) Urine Ketones Urine Blood Urine Nitrite Ur Leukocyte Esterase Urine RBC Urine WBC Ur Squamous Epith Cells Urine Bacteria Hyaline Casts Ethyl Alcohol COVID-19 (HELENA) [employer] Blood Type Antibody Screen 07/20/22 07/20/22 07/20/22 00:01 05:19 05:19 MCV 91.8 MCH 30.6 MCHC 33.3 RDW 15.6 Plt Count 161 D MPV 9.7 Immature Gran % (Auto) Neut % (Auto) Lymph % (Auto) [place] % (Auto) Eos % (Auto) Baso % (Auto) Lymph # (Auto) [place] # (Auto) Eos # (Auto) Baso # (Auto) Abs Immat Gran (auto) Absolute Neuts (auto) Absolute Nucleated RBC 0.000 Nucleated RBC % (auto) 0.0 Anion Gap 11 L Estim Creat Clear Calc 58.7 Estimated GFR > 60 POC Glucose 116 H Random Glucose 72 Estimat Average Glucose Hemoglobin A1c % Lactic Acid Lactic Acid F/U @ 2Hr Lactic Acid F/U @ 4Hr Calcium 8.3 L D Magnesium Total Bilirubin 3.3 H Direct Bilirubin 2.3 H AST 254 H ALT 369 H Alkaline Phosphatase 144 H Ammonia Troponin I High Sens B-Natriuretic Peptide Total Protein 5.1 L Albumin 3.0 L Prealbumin Lipase Urine Color Urine Appearance Urine pH Ur Specific [place] Urine Protein Urine Glucose (UA) Urine Ketones Urine Blood Urine Nitrite Ur Leukocyte Esterase Urine RBC Urine WBC Ur Squamous Epith Cells Urine Bacteria Hyaline Casts Ethyl Alcohol COVID-19 (HELENA) [employer] Blood Type Antibody Screen 07/20/22 07/20/22 07/20/22 05:44 06:21 06:42 MCV MCH MCHC RDW Plt Count MPV Immature Gran % (Auto) Neut % (Auto) Lymph % (Auto) [place] % (Auto) Eos % (Auto) Baso % (Auto) Lymph # (Auto) [place] # (Auto) Eos # (Auto) Baso # (Auto) Abs Immat Gran (auto) Absolute Neuts (auto) Absolute Nucleated RBC Nucleated RBC % (auto) Anion Gap Estim Creat Clear Calc Estimated GFR POC Glucose 63 71 111 Random Glucose Estimat Average Glucose Hemoglobin A1c % Lactic Acid Lactic Acid F/U @ 2Hr Lactic Acid F/U @ 4Hr Calcium Magnesium Total Bilirubin Direct Bilirubin AST ALT Alkaline Phosphatase Ammonia Troponin I High Sens B-Natriuretic Peptide Total Protein Albumin Prealbumin Lipase Urine Color Urine Appearance Urine pH Ur Specific [place] Urine Protein Urine Glucose (UA) Urine Ketones Urine Blood Urine Nitrite Ur Leukocyte Esterase Urine RBC Urine WBC Ur Squamous Epith Cells Urine Bacteria Hyaline Casts Ethyl Alcohol COVID-19 (HELENA) [employer] Blood Type Antibody Screen 07/20/22 07/20/22 07/20/22 07:18 10:31 10:31 MCV MCH MCHC RDW Plt Count MPV Immature Gran % (Auto) Neut % (Auto) Lymph % (Auto) [place] % (Auto) Eos % (Auto) Baso % (Auto) Lymph # (Auto) [place] # (Auto) Eos # (Auto) Baso # (Auto) Abs Immat Gran (auto) Absolute Neuts (auto) Absolute Nucleated RBC Nucleated RBC % (auto) Anion Gap Estim Creat Clear Calc Estimated GFR POC Glucose 110 Random Glucose Estimat Average Glucose 180 Hemoglobin A1c % 7.9 Lactic Acid Lactic Acid F/U @ 2Hr Lactic Acid F/U @ 4Hr Calcium Magnesium Total Bilirubin Direct Bilirubin AST ALT Alkaline Phosphatase Ammonia Troponin I High Sens B-Natriuretic Peptide Total Protein Albumin Prealbumin 22.0 Lipase Urine Color Urine Appearance Urine pH Ur Specific [place] Urine Protein Urine Glucose (UA) Urine Ketones Urine Blood Urine Nitrite Ur Leukocyte Esterase Urine RBC Urine WBC Ur Squamous Epith Cells Urine Bacteria Hyaline Casts Ethyl Alcohol COVID-19 (HELENA) COVID-19 [employer] Blood Type Antibody Screen 07/20/22 11:21 MCV MCH MCHC RDW Plt Count MPV Immature Gran % (Auto) Neut % (Auto) Lymph % (Auto) [place] % (Auto) Eos % (Auto) Baso % (Auto) Lymph # (Auto) [place] # (Auto) Eos # (Auto) Baso # (Auto) Abs Immat Gran (auto) Absolute Neuts (auto) Absolute Nucleated RBC Nucleated RBC % (auto) Anion Gap Estim Creat Clear Calc Estimated GFR POC Glucose 69 Random Glucose Estimat Average Glucose Hemoglobin A1c % Lactic Acid Lactic Acid F/U @ 2Hr Lactic Acid F/U @ 4Hr Calcium Magnesium Total Bilirubin Direct Bilirubin AST ALT Alkaline Phosphatase Ammonia Troponin I High Sens B-Natriuretic Peptide Total Protein Albumin Prealbumin Lipase Urine Color Urine Appearance Urine pH Ur Specific [place] Urine Protein Urine Glucose (UA) Urine Ketones Urine Blood Urine Nitrite Ur Leukocyte Esterase Urine RBC Urine WBC Ur Squamous Epith Cells Urine Bacteria Hyaline Casts Ethyl Alcohol COVID-19 (HELENA) COVID-19 Clin Com Blood Type Antibody Screen Assessment and Plan (1) Abnormal LFTs: Status: Acute (2) Acute calculous cholecystitis: Status: Acute Plan 77-year-old gentleman with past medical history significant for psoriatic arthritis, history of atrial fibrillation not on anticoagulation, diabetes mellitus type 2 on insulin, 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 ? Severe sepsis likely due to acute cholecystitis ? denies fever, no chills, no abdominal pain, WBC trending down, tachypnea and tachycardia resolved ? CT abdomen and pelvis as well as abdominal ultrasound consistent with acute cholecystitis. ? on IV Zosyn initiated 07/19 , continue NPO, IV fluids, blood cultures pending, will change IV antibiotics to ceftriaxone since prior culture from gallbladder showed E coli, Klebsiella oxytocin and bacteroids resistant to ampicillin Total bili trending up, liver enzymes improving ? follow LFTs, CBC and BMP ? Patient cannot undergo MRCP due to CONTRACT DESIGNER shunt, case discussed with Dr. Martinez she recommend HIDA scan Being followed with General surgery ? paroxysmal atrial fibrillation, continue metoprolol patient was recently discharged on amiodarone not seen on [facility], not on anticoagulation since had brief episode of AFib during last hospitalization. ?Diabetes mellitus type 2? on insulin ,blood sugars stable will hold Lantus,metformin, glipizide and Farxiga since patient NPO continue insulin sliding scale and monitor blood sugars. Hemoglobin A1c 7.9 ?History of psoriatic arthritis hold? Enbrel? and methotrexate ?Hypertension on multiple antihypertensive including amlodipine 10 mg, lisinopril 5 mg , Lasix 40 mg and metoprolol 50mg bid. All antihypertensive on hold except for metoprolol 50 mg b.i.d. blood pressures is stable. ?hyperlipidemia will hold Lipitor ?DVT prophylaxis on compression boots ?code status full code ?patient will need continued inpatient hospitalization due to severe sepsis /acute cholecystitis requiring IV hydration, IV antibiotics and possible surgical intervention. Time Spent With Patient Time: Total time managing care of this patient today ____ minutes. Quality Stroke Does the patient have a stroke diagnosis?: No VTE Prior VTE?: No VTE Risk Level:: Medical - moderate - high VTE Device Contraindication: N/A - Device Ordered VTE Drug Contraindication: Treatment Not Indicated
[2022-07-20] MEDS: cefTRIAXone sodium 1 GM in 0.9 % Sodium Chloride 50 ML IV (13:16)
[2022-07-20 13:17] LABS: Glucose, Whole Blood 133 mg/dL (60-115)
--- NOTE | 2022-07-20 13:53 | MHC.CM.PN ---
IMM 07/20/22, EMR REVIEWED, PT ADMITTED W/SEVERE SEPSIS AND CHOLYECYSTITIS, CM MET W/PT WHO REPORTS HE LIVES ALONE, DENIES USE OF DME AND HAS [facility] FOR SN/OT. PT REPORTS HE WOULD LIKE TO D/C HOME HOWEVER WAS UNABLE TO MOVE HIS LEGS WHEN AMBULANCE CAME TO PICK HIM UP. PT VERIFIES PCP IS RAFAEL GUTIERREZ, HCP IS JENNIFER CONNER [phone], COPY REQUESTED AND PT REPORTS BEING FULLY VACC FOR COVID19. ANTIC D/C HOME W/RESUMP OF [facility], PT MAY NEED ASSISTANCE W/TRANSPORT
[2022-07-20 16:00] VITALS: BP 132/59; PULSE 63; RESP 18; TEMP 36.7; O2SAT 95
[2022-07-20 16:29] LABS: Glucose, Whole Blood 61 mg/dL (60-115)
[2022-07-20] MEDS: metroNIDAZOLE/NS 500 MG/100 ML PIGGYBACK 100 MG IV (17:14)
[2022-07-20] MEDS: 0.9 % Sodium Chloride Flush 3 ML SYRINGE IVFLUSH (17:14)
[2022-07-20 19:31] VITALS: BP 107/61; PULSE 62; RESP 18; TEMP 37; O2SAT 95
[2022-07-20 20:16] LABS: Glucose, Whole Blood 85 mg/dL (60-115)
[2022-07-21] VITALS (8 sets, daily range): BP systolic 108–145; BP diastolic 54–72; PULSE 59–101; RESP 14–20; TEMP 36.3–36.9; O2SAT 91–98
[2022-07-21 00:21] LABS: Glucose, Whole Blood 64 mg/dL (60-115)
[2022-07-21 00:47] LABS: Glucose, Whole Blood 189 mg/dL (60-115)
[2022-07-21] MEDS: metroNIDAZOLE/NS 500 MG/100 ML PIGGYBACK 100 MG IV ×3 (02:49→18:10)
[2022-07-21 03:55] LABS: Glucose, Whole Blood 112 mg/dL (60-115)
[2022-07-21] MEDS: Lactated Ringers 1,000 ML 100 ML IVCONT (04:59)
[2022-07-21 07:08] LABS: Hematocrit 35.4 % (42.0-52.0); Hemoglobin 11.7 g/dl (14.0-18.0); Mean Corpuscular HGB Conc 33.1 g/dl (31.0-36.0); Mean Corpuscular Hemoglobin 30.5 pg (27.0-33.0); Mean Corpuscular Volume 92.2 fL (80.0-98.0); Mean Platelet Volume 10.5 fL (9.4-12.4); Platelet Count 141 X10*3/uL (160-400); Red Blood Count 3.84 X10*6/uL (4.60-5.80); Red Cell Distribution Width 15.9 % (11.0-16.0); White Blood Count 7.3 X10*3/uL (4.8-10.8)
[2022-07-21 07:51] LABS: Alanine Aminotransferase 233 U/L (0-40); Albumin Level 2.8 g/dL (3.5-5.0); Alkaline Phosphatase 156 U/L (39-117); Anion Gap 11 (12-20); Aspartate Amino Transferase 104 U/L (5-37); Bilirubin Direct 1.6 mg/dL (0.0-0.5); Blood Urea Nitrogen 13 mg/dL (9-16); Calcium 8.4 mg/dL (8.4-10.2); Carbon Dioxide 23 mmol/L (22-29); Chloride 110 mmol/L (96-108); Creatinine Clr Calc Pharmacy 74.8; Estimated Glomerular Filt Rate > 60; Glucose Random 84 mg/dL (60-115); Sodium 140 mmol/L (135-145); Total Protein 5.2 g/dL (6.5-8.0)
[2022-07-21 08:18] LABS: Glucose, Whole Blood 102 mg/dL (60-115)
[2022-07-21] MEDS: Metoprolol Tartrate 50 MG TABLET PO ×2 (09:21→19:43)
[2022-07-21 12:02] LABS: Glucose, Whole Blood 93 mg/dL (60-115)
[2022-07-21] MEDS: cefTRIAXone sodium 1 GM in 0.9 % Sodium Chloride 50 ML IV (13:24)
--- NOTE | 2022-07-21 14:07 | HO.PM.IMPN ---
Subjective Subjective Date of Service: 07/21/22 Interval History: Feeling hungry requesting for food, denies nausea vomiting, no right upper quadrant discomfort, denies fever, chills, no acute issues overnight, receiving IV fluids vitals stable. Review of Systems Review of Systems: Yes all other systems are reviewed and are negative Physical Exam Vital Signs: Vital Signs: Last Vital Signs Temp 98.2 F 07/21/22 11:30 Pulse 60 07/21/22 11:30 Resp 20 07/21/22 11:30 BP 134/72 07/21/22 11:30 Pulse Ox 92 07/21/22 11:30 O2 Del Method Nasal Cannula 07/21/22 11:30 O2 Flow Rate 2 07/21/22 11:30 BMI result Body Mass Index 25.1 Const: Other: General? awake alert x3, resting comfortably in no acute distress. Neck? supple, no JVD. CVS? regular rate rhythm, Respiratory lungs clear to auscultation, no respiratory distress, no wheeze, no rhonchi. Gastrointestinal abdomen soft, no tenderness right upper quadrant, bowel sounds audible, no guarding , no rigidity, cholecystostomy tube in place with small bilious drainage Extremities no edema. Neuro nonfocal ,moving all 4 extremity speech clear. Skin no rash psych appropriate affect Objective Data Active Medications Acetaminophen (Acetaminophen 325 Mg Tablet) 650 mg PO Q6H PRN PRN Reason: Pain, Mild (Pain Scale 1-3) Glucose (Glucose Gel 15 Gm Gel..Gram.) 15 gm PO Q15M PRN; Protocol PRN Reason: per Hypoglycemia Standing Ord. Last Admin: 07/20/22 06:03 Dose: 15 gm Documented By: RANDY Dextrose (D10) 250 mls @ 750 mls/hr IV Q15M PRN; Protocol PRN Reason: per Hypoglycemia Standing Ord. Last Infusion: 07/21/22 00:15 Dose: 0 mls/hr Documented By: ISAIAH Lactated Ringer's (Lr) 1,000 mls @ 80 mls/hr IVCONT .[id number] [facility] Last Infusion: 07/21/22 12:57 Dose: 80 mls/hr Documented By: IAN Ceftriaxone Sodium 1 gm/ (Sodium Chloride) 50 mls @ 100 mls/hr IV Q24H [facility] Last Infusion: 07/21/22 14:01 Dose: 0 mls/hr Documented By: IAN Metronidazole (Flagyl) 500 mg in 100 mls @ 100 mls/hr IV Q8H [facility] Last Infusion: 07/21/22 13:28 Dose: 0 mls/hr Documented By: IAN Insulin Human Lispro (Insulin Lispro 100 Unit/Ml 3 Ml Vial) 0 unit SUBCUT Q6H [facility]; Protocol Last Admin: 07/21/22 12:08 Dose: Not Given Documented By: IAN Non-Admin Reason: No Insulin Coverage Melatonin (Melatonin 3 Mg Tablet) 6 mg PO BEDTIME PRN PRN Reason: Insomnia Metoprolol Tartrate (Metoprolol Tartrate 50 Mg Tablet) 50 mg PO BID [facility]; Protocol Last Admin: 07/21/22 09:21 Dose: 50 mg Documented By: IAN Morphine Sulfate (Morphine Sulfate 4 Mg/Ml Cartridge) 3 mg IVPUSH Q4H PRN; Protocol PRN Reason: Pain, Severe (Pain Scale 7-10) Ondansetron HCl (Ondansetron Hcl 4 Mg/2 Ml Vial) 4 mg IVPUSH Q8H PRN PRN Reason: Nausea and Vomiting Pharmacy Consult (Consult Rx Perform Med Rec) 1 each MISCELLANE ONCE PRN PRN Reason: Consult order Sodium Chloride (0.9 % Sodium Chloride Flush 3 Ml Syringe) 3 ml IVFLUSH QSHIFT [facility] Last Admin: 07/21/22 09:08 Dose: Not Given Documented By: IAN Non-Admin Reason: IV Running Labs 07/21/22 06:16 07/21/22 06:16 Labs: Laboratory Results - last 24 hr 07/20/22 07/20/22 07/20/22 16:19 19:33 23:46 MCV MCH MCHC RDW Plt Count MPV Absolute Nucleated RBC Nucleated RBC % (auto) Anion Gap Estim Creat Clear Calc Estimated GFR POC Glucose 61 85 64 Random Glucose Calcium Total Bilirubin Direct Bilirubin AST ALT Alkaline Phosphatase Total Protein Albumin 07/21/22 07/21/22 07/21/22 00:42 03:52 06:16 MCV 92.2 MCH 30.5 MCHC 33.1 RDW 15.9 Plt Count 141 L MPV 10.5 Absolute Nucleated RBC 0.000 Nucleated RBC % (auto) 0.0 Anion Gap Estim Creat Clear Calc Estimated GFR POC Glucose 189 H 112 Random Glucose Calcium Total Bilirubin Direct Bilirubin AST ALT Alkaline Phosphatase Total Protein Albumin 07/21/22 07/21/22 07/21/22 06:16 07:38 11:34 MCV MCH MCHC RDW Plt Count MPV Absolute Nucleated RBC Nucleated RBC % (auto) Anion Gap 11 L Estim Creat Clear Calc 74.8 Estimated GFR > 60 POC Glucose 102 93 Random Glucose 84 Calcium 8.4 Total Bilirubin 3.0 H Direct Bilirubin 1.6 H AST 104 H ALT 233 H Alkaline Phosphatase 156 H Total Protein 5.2 L Albumin 2.8 L Microbiology Microbiology Results: Microbiology 07/19/22 15:05 Blood Culture - Preliminary Blood - Venous No growth after 24 hours. 07/19/22 15:05 Blood Culture - Preliminary Blood - Venous No growth after 24 hours. Assessment and Plan (1) Abnormal LFTs: Status: Acute (2) Acute calculous cholecystitis: Status: Acute Plan 77-year-old gentleman with past medical history significant for psoriatic arthritis, history of atrial fibrillation not on anticoagulation, diabetes mellitus type 2 on insulin, normal pressure hydrocephalus with ADVANCED MANAGER shunt, brought in to [facility] by EMS due to generalized weakness, in the ER workup suggestive of acute cholecystitis will be admitted for severe sepsis due to cholecystitis. ? Severe sepsis likely due to acute cholecystitis ? no fever, no chills, no abdominal pain, WBC normalized, tachypnea and tachycardia resolved ? CT abdomen and pelvis as well as abdominal ultrasound consistent with acute cholecystitis. ? on IV Zosyn initiated 07/19 , on IV fluids, blood cultures neg, on iv ceftriaxone day 2 since prior culture from gallbladder showed E coli, Klebsiella oxytoca and bacteroids resistant to ampicillin Total bili and liver enzymes trending down ? MRCP not done due to ADVANCED MANAGER shunt, HIDA scan showed nonvisualization of gallbladder consistent with cystic duct obstruction, patent CBD Will place on clear liquid diet, decrease IV fluids follow LFTs, will discuss with surgery regarding cholecystectomy ? paroxysmal atrial fibrillation, continue metoprolol not on anticoagulation since had brief episode of AFib during last hospitalization. ?Diabetes mellitus type 2? on insulin ,blood sugars stable will hold Lantus,metformin, glipizide and Farxiga since patient on clear liquids, continue insulin sliding scale and monitor blood sugars. Hemoglobin A1c 7.9 ?History of psoriatic arthritis hold? Enbrel? and methotrexate ?Hypertension on multiple antihypertensive including amlodipine 10 mg, lisinopril 5 mg , Lasix 40 mg and metoprolol 50mg bid. All antihypertensive on hold except for metoprolol 50 mg b.i.d. blood pressures is stable. ?hyperlipidemia will hold Lipitor due to elevated LFTs ?DVT prophylaxis on compression boots ?code status full code ?patient will need continued inpatient hospitalization due to severe sepsis /acute cholecystitis requiring IV hydration, IV antibiotics and possible surgical intervention. Time Spent With Patient Time: Total time managing care of this patient today ____ minutes. Quality Stroke Does the patient have a stroke diagnosis?: No VTE Prior VTE?: No VTE Risk Level:: Medical - moderate - high VTE Device Contraindication: N/A - Device Ordered VTE Drug Contraindication: Treatment Not Indicated
[2022-07-21] MEDS: Lactated Ringers 1,000 ML 80 ML IVCONT (15:56)
[2022-07-21 16:05] LABS: Glucose, Whole Blood 231 mg/dL (60-115)
[2022-07-21] MEDS: Insulin Lispro 100 UNIT/ML 3 ML VIAL SUBCUT (18:09)
[2022-07-21] MEDS: 0.9 % Sodium Chloride Flush 3 ML SYRINGE IVFLUSH (19:43)
[2022-07-21 19:58] LABS: Glucose, Whole Blood 245 mg/dL (60-115)
[2022-07-21 23:55] LABS: Glucose, Whole Blood 120 mg/dL (60-115)
[2022-07-22] VITALS (7 sets, daily range): BP systolic 112–148; BP diastolic 63–86; PULSE 60–131; RESP 18–20; TEMP 36.2–36.8; O2SAT 90–98
[2022-07-22] MEDS: metroNIDAZOLE/NS 500 MG/100 ML PIGGYBACK 100 MG IV ×3 (03:23→18:31)
[2022-07-22] MEDS: Lactated Ringers 1,000 ML 80 ML IVCONT (03:30)
[2022-07-22 03:36] LABS: Glucose, Whole Blood 107 mg/dL (60-115)
[2022-07-22 06:10] LABS: Glucose, Whole Blood 124 mg/dL (60-115)
[2022-07-22 06:52] LABS: Alanine Aminotransferase 154 U/L (0-40); Albumin Level 2.7 g/dL (3.5-5.0); Alkaline Phosphatase 199 U/L (39-117); Anion Gap 11 (12-20); Aspartate Amino Transferase 48 U/L (5-37); Bilirubin Direct 1.6 mg/dL (0.0-0.5); Bilirubin Total 2.6 mg/dL (0.0-1.0); Blood Urea Nitrogen 9 mg/dL (9-16); Calcium 8.2 mg/dL (8.4-10.2); Carbon Dioxide 23 mmol/L (22-29); Chloride 111 mmol/L (96-108); Creatinine Clr Calc Pharmacy 76.6; Estimated Glomerular Filt Rate > 60; Glucose Random 115 mg/dL (60-115); Potassium 3.6 mmol/L (3.3-5.1); Sodium 141 mmol/L (135-145); Total Protein 4.9 g/dL (6.5-8.0)
[2022-07-22] MEDS: Metoprolol Tartrate 50 MG TABLET PO ×2 (08:55→20:29)
[2022-07-22] MEDS: 0.9 % Sodium Chloride Flush 3 ML SYRINGE IVFLUSH ×2 (08:55→20:29)
[2022-07-22 09:00] LABS: Glucose, Whole Blood 132 mg/dL (60-115)
--- NOTE | 2022-07-22 09:07 | P.PNIM_ITS ---
Subjective Subjective Date of Service: 07/22/22 Interval History: Being followed for acute cholecystitis offers no acute complaints of abdominal pain no nausea, no vomiting, tolerating clear liquid diet, no fevers, no chills, LFTs are trending down, no acute issues overnight. Review of Systems Review of Systems: Yes all other systems are reviewed and are negative Physical Exam Vital Signs: Vital Signs: Last Vital Signs Temp 97.9 F 07/22/22 07:39 Pulse 70 07/22/22 07:39 Resp 20 07/22/22 07:39 BP 145/72 H 07/22/22 07:39 Pulse Ox 94 07/22/22 07:39 O2 Del Method Nasal Cannula 07/22/22 07:39 O2 Flow Rate 2 07/22/22 07:39 BMI result Body Mass Index 25.1 Const: Other: General? awake alert x3, resting comfortably in no acute distress. Neck? supple, no JVD. CVS? regular rate rhythm, Respiratory lungs clear to auscultation, no respiratory distress, no wheeze, no rhonchi. Gastrointestinal abdomen soft, no tenderness right upper quadrant, bowel sounds audible, no guarding , no rigidity, cholecystostomy tube in place with small bilious drainage Extremities no edema. Neuro nonfocal ,moving all 4 extremity speech clear. Skin no rash psych appropriate affect Objective Data Active Medications Acetaminophen (Acetaminophen 325 Mg Tablet) 650 mg PO Q6H PRN PRN Reason: Pain, Mild (Pain Scale 1-3) Glucose (Glucose Gel 15 Gm Gel..Gram.) 15 gm PO Q15M PRN; Protocol PRN Reason: per Hypoglycemia Standing Ord. Last Admin: 07/20/22 06:03 Dose: 15 gm Documented By: RANDY Dextrose ([email or web address]) 250 mls @ 750 mls/hr IV Q15M PRN; Protocol PRN Reason: per Hypoglycemia Standing Ord. Last Infusion: 07/21/22 00:15 Dose: 0 mls/hr Documented By: ISAIAH Lactated Ringer's (Lr) 1,000 mls @ 80 mls/hr IVCONT .[id number] [facility] Last Admin: 07/22/22 03:30 Dose: 80 mls/hr Documented By: YAYO Ceftriaxone Sodium 1 gm/ (Sodium Chloride) 50 mls @ 100 mls/hr IV Q24H [facility] Last Infusion: 07/21/22 14:01 Dose: 0 mls/hr Documented By: IAN Metronidazole (Flagyl) 500 mg in 100 mls @ 100 mls/hr IV Q8H [facility] Last Infusion: 07/22/22 04:37 Dose: 0 mls/hr Documented By: YAYO Insulin Human Lispro (Insulin Lispro 100 Unit/Ml 3 Ml Vial) 0 unit SUBCUT Q6H [facility]; Protocol Last Admin: 07/22/22 06:11 Dose: Not Given Documented By: YAYO Non-Admin Reason: No Insulin Coverage Comments: 124 Melatonin (Melatonin 3 Mg Tablet) 6 mg PO BEDTIME PRN PRN Reason: Insomnia Metoprolol Tartrate (Metoprolol Tartrate 50 Mg Tablet) 50 mg PO BID [facility]; Protocol Last Admin: 07/22/22 08:55 Dose: 50 mg Documented By: JEANNETTE Morphine Sulfate (Morphine Sulfate 4 Mg/Ml Cartridge) 3 mg IVPUSH Q4H PRN; Protocol PRN Reason: Pain, Severe (Pain Scale 7-10) Ondansetron HCl (Ondansetron Hcl 4 Mg/2 Ml Vial) 4 mg IVPUSH Q8H PRN PRN Reason: Nausea and Vomiting Pharmacy Consult (Consult Rx Perform Med Rec) 1 each MISCELLANE ONCE PRN PRN Reason: Consult order Sodium Chloride (0.9 % Sodium Chloride Flush 3 Ml Syringe) 3 ml IVFLUSH QSHIFT [facility] Last Admin: 07/22/22 08:55 Dose: 3 ml Documented By: JEANNETTE Labs 07/21/22 06:16 07/22/22 05:36 Labs: Laboratory Results - last 24 hr 07/21/22 07/21/22 07/21/22 11:34 16:01 19:49 Anion Gap Estim Creat Clear Calc Estimated GFR POC Glucose 93 231 H 245 H Random Glucose Calcium Total Bilirubin Direct Bilirubin AST ALT Alkaline Phosphatase Total Protein Albumin 07/21/22 07/22/22 07/22/22 23:48 03:30 05:36 Anion Gap 11 L Estim Creat Clear Calc 76.6 Estimated GFR > 60 POC Glucose 120 H 107 Random Glucose 115 Calcium 8.2 L Total Bilirubin 2.6 H Direct Bilirubin 1.6 H AST 48 H ALT 154 H Alkaline Phosphatase 199 H Total Protein 4.9 L Albumin 2.7 L 07/22/22 07/22/22 06:06 07:42 Anion Gap Estim Creat Clear Calc Estimated GFR POC Glucose 124 H 132 H Random Glucose Calcium Total Bilirubin Direct Bilirubin AST ALT Alkaline Phosphatase Total Protein Albumin Microbiology Microbiology Results: Microbiology 07/19/22 15:05 Blood Culture - Preliminary Blood - Venous No growth after 48 hours. 07/19/22 15:05 Blood Culture - Preliminary Blood - Venous No growth after 48 hours. Assessment and Plan (1) Abnormal LFTs: Status: Acute (2) Acute calculous cholecystitis: Status: Acute Plan 77-year-old gentleman with past medical history significant for psoriatic arthritis, history of atrial fibrillation not on anticoagulation, diabetes doug litus type 2 on insulin, normal pressure hydrocephalus with [employer] shunt, brought in to [facility] by EMS due to generalized weakness, in the ER workup suggestive of acute cholecystitis will be admitted for severe sepsis due to cholecystitis. ? Severe sepsis likely due to acute cholecystitis ? Sepsis resolved, no fever, no chills, no abdominal pain, WBC normalized, tachypnea and tachycardia resolved ? CT abdomen and pelvis as well as abdominal ultrasound consistent with acute cholecystitis. ? IV Zosyn initiated 07/19 , subsequently discontinued and placed on IV ceftriaxone day 3 since prior culture from gallbladder showed E coli, Klebsiella and Bacteroides resistant to ampicillin Total bili and liver enzymes trending down slowly blood cultures x2 negative ? MRCP not done due to [employer]AX [employer] shunt, HIDA scan obtained as per GI rec.it showed nonvisualization of gallbladder consistent with cystic duct obstruction, patent CBD. place on full liquid diet, and clear Ensure, decrease IV fluids. follow LFTs,bmp/INR, will discuss with surgery regarding cholecystectomy, keep him NPO after midnight. ? paroxysmal atrial fibrillation, continue metoprolol, not on anticoagulation since had brief episode of AFib during last hospitalization. ?Diabetes mellitus type 2? on insulin: ,blood sugars stable will hold Lantus,metformin, glipizide and Farxiga since patient on full liquids,and will be npo, continue insulin sliding scale and monitor blood sugars. Hemoglobin A1c 7.9 ?History of psoriatic arthritis: hold? Enbrel? and methotrexate ?Hypertension on multiple antihypertensive including amlodipine 10 mg, lisinopril 5 mg , Lasix 40 mg and metoprolol 50mg bid. All antihypertensive on hold except for metoprolol 50 mg b.i.d. blood pressures is stable. ?hyperlipidemia will hold Lipitor due to elevated LFTs ?DVT prophylaxis on compression boots ?code status full code ?patient will need continued inpatient hospitalization due to severe sepsis /acute cholecystitis requiring IV hydration, IV antibiotics and possible surgical intervention. Time Spent With Patient Time: Total time managing care of this patient today ____ minutes. Quality Stroke Does the patient have a stroke diagnosis?: No VTE Prior VTE?: No VTE Risk Level:: Medical - moderate - high VTE Device Contraindication: N/A - Device Ordered VTE Drug Contraindication: Treatment Not Indicated
--- NOTE | 2022-07-22 11:13 | PC.NURSE ---
pt has been tachy for majority of the am. pt asymptomatic. tiger text sent to provider. will monitor.
[2022-07-22] MEDS: Insulin Lispro 100 UNIT/ML 3 ML VIAL SUBCUT ×2 (11:57→16:12)
[2022-07-22 12:01] LABS: Glucose, Whole Blood 260 mg/dL (60-115)
[2022-07-22] MEDS: Insulin Glargine,Hum.rec.anlog 100 UNIT/ML 10 ML VIAL 12 UNIT SUBCUT (13:34)
[2022-07-22] MEDS: cefTRIAXone sodium 1 GM in 0.9 % Sodium Chloride 50 ML IV (13:34)
[2022-07-22] MEDS: Furosemide 20 MG/2 ML VIAL IVPUSH (13:34)
--- NOTE | 2022-07-22 18:11 | PM.PNGS ---
Subjective Subjective Date of Service: 07/22/22 Interval history: feeling well, tolerating po diet without abdo pain kellen cholecystostomy tube in place Physical Exam Vital Signs: Vital Signs: Last Vital Signs Temp 97.5 F 07/22/22 15:12 Pulse 131 H 07/22/22 15:12 Resp 20 07/22/22 15:12 BP 112/74 07/22/22 15:12 Pulse Ox 93 07/22/22 15:12 O2 Del Method Room Air 07/22/22 15:12 O2 Flow Rate 2 07/22/22 11:42 BMI result Body Mass Index 25.1 GI: Other: abdomen is benign Objective Data Active Medications Acetaminophen (Acetaminophen 325 Mg Tablet) 650 mg PO Q6H PRN PRN Reason: Pain, Mild (Pain Scale 1-3) Glucose (Glucose Gel 15 Gm Gel..Gram.) 15 gm PO Q15M PRN; Protocol PRN Reason: per Hypoglycemia Standing Ord. Last Admin: 07/20/22 06:03 Dose: 15 gm Documented By: RANDY Dextrose ([email or web address]) 250 mls @ 750 mls/hr IV Q15M PRN; Protocol PRN Reason: per Hypoglycemia Standing Ord. Last Infusion: 07/21/22 00:15 Dose: 0 mls/hr Documented By: ISAIAH Ceftriaxone Sodium 1 gm/ (Sodium Chloride) 50 mls @ 100 mls/hr IV Q24H [facility] Last Infusion: 07/22/22 14:59 Dose: 0 mls/hr Documented By: JEANNETTE Metronidazole (Flagyl) 500 mg in 100 mls @ 100 mls/hr IV Q8H [facility] Last Infusion: 07/22/22 14:01 Dose: 0 mls/hr Documented By: JEANNETTE Insulin Human Lispro (Insulin Lispro 100 Unit/Ml 3 Ml Vial) 0 unit SUBCUT Q6H [facility]; Protocol Last Admin: 07/22/22 16:12 Dose: 8 unit Documented By: JEANNETTE Lorazepam (Lorazepam 0.5 Mg Tablet) 0.5 mg PO Q12H PRN PRN Reason: Anxiety Melatonin (Melatonin 3 Mg Tablet) 6 mg PO BEDTIME PRN PRN Reason: Insomnia Metoprolol Tartrate (Metoprolol Tartrate 50 Mg Tablet) 50 mg PO BID [facility]; Protocol Last Admin: 07/22/22 08:55 Dose: 50 mg Documented By: JEANNETTE Morphine Sulfate (Morphine Sulfate 4 Mg/Ml Cartridge) 3 mg IVPUSH Q4H PRN; Protocol PRN Reason: Pain, Severe (Pain Scale 7-10) Ondansetron HCl (Ondansetron Hcl 4 Mg/2 Ml Vial) 4 mg IVPUSH Q8H PRN PRN Reason: Nausea and Vomiting Pharmacy Consult (Consult Rx Perform Med Rec) 1 each MISCELLANE ONCE PRN PRN Reason: Consult order Sodium Chloride (0.9 % Sodium Chloride Flush 3 Ml Syringe) 3 ml IVFLUSH QSHIFT [facility] Last Admin: 07/22/22 16:11 Dose: Not Given Documented By: JEANNETTE Non-Admin Reason: Previously Administered Labs 07/21/22 06:16 07/22/22 05:36 Labs: Laboratory Results - last 24 hr 07/21/22 07/21/22 07/22/22 19:49 23:48 03:30 Anion Gap Estim Creat Clear Calc Estimated GFR POC Glucose 245 H 120 H 107 Random Glucose Calcium Total Bilirubin Direct Bilirubin AST ALT Alkaline Phosphatase Total Protein Albumin 07/22/22 07/22/22 07/22/22 05:36 06:06 07:42 Anion Gap 11 L Estim Creat Clear Calc 76.6 Estimated GFR > 60 POC Glucose 124 H 132 H Random Glucose 115 Calcium 8.2 L Total Bilirubin 2.6 H Direct Bilirubin 1.6 H AST 48 H ALT 154 H Alkaline Phosphatase 199 H Total Protein 4.9 L Albumin 2.7 L 07/22/22 11:45 Anion Gap Estim Creat Clear Calc Estimated GFR POC Glucose 260 H Random Glucose Calcium Total Bilirubin Direct Bilirubin AST ALT Alkaline Phosphatase Total Protein Albumin Microbiology Microbiology Results: Microbiology 07/19/22 15:05 Blood Culture - Preliminary Blood - Venous No growth after 48 hours. 07/19/22 15:05 Blood Culture - Preliminary Blood - Venous No growth after 48 hours. Procedures Date of Service Date of Service: 07/22/22 Progress Note: A&P Assessment and plan (1) Acute calculous cholecystitis: Status: Acute Assessment and Plan: pt with decompressive cholecystostomy tube doing well the plan is to do lap beth at some point pt is stable and willing to undergo surgery when he is medically fit Time Spent With Patient Time: Total time managing care of this patient today ____ minutes. Quality Stroke Does the patient have a stroke diagnosis?: No VTE Prior VTE?: No VTE Risk Level:: Medical - moderate - high VTE Device Contraindication: N/A - Device Ordered VTE Drug Contraindication: Treatment Not Indicated
[2022-07-22 18:16] LABS: Glucose, Whole Blood 205 mg/dL (60-115)
[2022-07-22 19:57] LABS: Glucose, Whole Blood 97 mg/dL (60-115)
[2022-07-22 23:51] LABS: Glucose, Whole Blood 80 mg/dL (60-115)
[2022-07-23] MEDS: metroNIDAZOLE/NS 500 MG/100 ML PIGGYBACK 100 MG IV ×3 (03:56→20:09)
[2022-07-23 04:00] VITALS: BP 152/76; PULSE 69; RESP 18; TEMP 36.7; O2SAT 95
[2022-07-23 04:59] LABS: Prothrombin Time 11.2 SEC (10.0-13.1)
[2022-07-23 05:11] LABS: Glucose, Whole Blood 119 mg/dL (60-115)
[2022-07-23 05:12] LABS: Alanine Aminotransferase 140 U/L (0-40); Albumin Level 3.2 g/dL (3.5-5.0); Alkaline Phosphatase 292 U/L (39-117); Anion Gap 14 (12-20); Aspartate Amino Transferase 42 U/L (5-37); Bilirubin Direct 1.5 mg/dL (0.0-0.5); Bilirubin Total 2.6 mg/dL (0.0-1.0); Blood Urea Nitrogen 8 mg/dL (9-16); Calcium 8.9 mg/dL (8.4-10.2); Carbon Dioxide 24 mmol/L (22-29); Chloride 107 mmol/L (96-108); Creatinine Clr Calc Pharmacy 74.8; Estimated Glomerular Filt Rate > 60; Glucose Random 94 mg/dL (60-115); Potassium 3.7 mmol/L (3.3-5.1); Sodium 141 mmol/L (135-145)
[2022-07-23 07:40] VITALS: BP 147/71; PULSE 98; RESP 16; TEMP 36.4; O2SAT 95
[2022-07-23 07:56] LABS: Glucose, Whole Blood 146 mg/dL (60-115)
[2022-07-23] MEDS: Metoprolol Tartrate 50 MG TABLET PO ×2 (09:22→20:09)
[2022-07-23] MEDS: 0.9 % Sodium Chloride Flush 3 ML SYRINGE IVFLUSH ×3 (09:23→20:10)
--- NOTE | 2022-07-23 09:36 | PM.PNGS ---
Subjective Subjective Date of Service: 07/23/22 Patient reports: feels better and tolerating liquids well Interval history: The patient is seen with his daughter Belen at the bedside. Patient denies any abdominal pain, reports he was tolerating liquids yesterday but has been made NPO. He denies any chest pain, difficulty breathing or shortness of breath. Physical Exam Vital Signs: Vital Signs: Last Vital Signs Temp 97.5 F 07/23/22 07:40 Pulse 98 07/23/22 07:40 Resp 16 07/23/22 07:40 BP 147/71 H 07/23/22 07:40 Pulse Ox 95 07/23/22 07:40 O2 Del Method Room Air 07/23/22 07:40 O2 Flow Rate 2 07/22/22 11:42 BMI result Body Mass Index 25.1 On exam, the patient is nontoxic and anicteric He is in no acute respiratory distress His abdomen is obese but soft with no tenderness. No rebound, rigidity or guarding is present Objective Data Active Medications Acetaminophen (Acetaminophen 325 Mg Tablet) 650 mg PO Q6H PRN PRN Reason: Pain, Mild (Pain Scale 1-3) Glucose (Glucose Gel 15 Gm Gel..Gram.) 15 gm PO Q15M PRN; Protocol PRN Reason: per Hypoglycemia Standing Ord. Last Admin: 07/20/22 06:03 Dose: 15 gm Documented By: RANDY Dextrose ([id number]) 250 mls @ 750 mls/hr IV Q15M PRN; Protocol PRN Reason: per Hypoglycemia Standing Ord. Last Infusion: 07/21/22 00:15 Dose: 0 mls/hr Documented By: IASIAH Ceftriaxone Sodium 1 gm/ (Sodium Chloride) 50 mls @ 100 mls/hr IV Q24H [facility] Last Infusion: 07/22/22 14:59 Dose: 0 mls/hr Documented By: JEANNETTE Metronidazole (Flagyl) 500 mg in 100 mls @ 100 mls/hr IV Q8H [facility] Last Infusion: 07/23/22 05:42 Dose: 0 mls/hr Documented By: MARIVEL Insulin Human Lispro (Insulin Lispro 100 Unit/Ml 3 Ml Vial) 0 unit SUBCUT Q6H [facility]; Protocol Last Admin: 07/23/22 05:43 Dose: Not Given Documented By: MARIVEL Non-Admin Reason: No Insulin Coverage Lorazepam (Lorazepam 0.5 Mg Tablet) 0.5 mg PO Q12H PRN PRN Reason: Anxiety Melatonin (Melatonin 3 Mg Tablet) 6 mg PO BEDTIME PRN PRN Reason: Insomnia Metoprolol Tartrate (Metoprolol Tartrate 50 Mg Tablet) 50 mg PO BID [facility]; Protocol Last Admin: 07/23/22 09:22 Dose: 50 mg Documented By: RUSSELL Morphine Sulfate (Morphine Sulfate 4 Mg/Ml Cartridge) 3 mg IVPUSH Q4H PRN; Protocol PRN Reason: Pain, Severe (Pain Scale 7-10) Ondansetron HCl (Ondansetron Hcl 4 Mg/2 Ml Vial) 4 mg IVPUSH Q8H PRN PRN Reason: Nausea and Vomiting Pharmacy Consult (Consult Rx Perform Med Rec) 1 each MISCELLANE ONCE PRN PRN Reason: Consult order Sodium Chloride (0.9 % Sodium Chloride Flush 3 Ml Syringe) 3 ml IVFLUSH [facility] Last Admin: 07/23/22 09:23 Dose: 3 ml Documented By: RUSSELL Labs 07/21/22 06:16 07/23/22 04:20 Labs: Laboratory Results - last 24 hr 07/22/22 07/22/22 07/22/22 11:45 15:51 19:53 PT INR Anion Gap Estim Creat Clear Calc Estimated GFR POC Glucose 260 H 205 H 97 Random Glucose Calcium Total Bilirubin Direct Bilirubin AST ALT Alkaline Phosphatase Total Protein Albumin 07/22/22 07/23/22 07/23/22 23:48 04:20 04:20 PT 11.2 INR 1.0 Anion Gap 14 Estim Creat Clear Calc 74.8 Estimated GFR > 60 POC Glucose 80 Random Glucose 94 Calcium 8.9 D Total Bilirubin 2.6 H Direct Bilirubin 1.5 H AST 42 H ALT 140 H Alkaline Phosphatase 292 H Total Protein 6.0 L Albumin 3.2 L 07/23/22 07/23/22 05:04 07:53 PT INR Anion Gap Estim Creat Clear Calc Estimated GFR POC Glucose 119 H 146 H Random Glucose Calcium Total Bilirubin Direct Bilirubin AST ALT Alkaline Phosphatase Total Protein Albumin Procedures Date of Service Date of Service: 07/23/22 Progress Note: A&P Assessment and plan (1) Abnormal LFTs: Status: Acute (2) Acute alteration in mental status: Status: Acute (3) Poorly controlled type 2 diabetes mellitus: Status: Acute (4) Hepatitis: Status: Acute (5) Unable to ambulate: Status: Acute (6) Frailty syndrome in geriatric patient: Status: Acute (7) Psoriatic arthritis: Status: Acute (8) Cardiomegaly: Status: Acute (9) 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, longterm, current use: Status: Acute Plan I reviewed the previously discussed plan on an outpatient basis with the patient and his daughter. He has several comorbidities and is in it increased risk for operative complications in his present state. Since he is having no abdominal pain and tolerated his diet yesterday, can advance his diet to a diabetic diet and trend his LFTs. His abdomen is soft and noted to be soft and nontender by 2 other surgeons, so I do not believe he has acute cholecystitis. At the HIDA scan is going to be abnormal because the gallbladder was perforated with a drainage catheter. Patient's leukocytosis has normalized. Would follow the patient clinically and continue to optimize. The patient has expressed interest in a 2nd surgical opinion which I am happy to help facilitate. Time Spent With Patient Time: Total time managing care of this patient today ____ minutes. Quality Stroke Does the patient have a stroke diagnosis?: No VTE Prior VTE?: No VTE Risk Level:: Medical - moderate - high VTE Device Contraindication: N/A - Device Ordered VTE Drug Contraindication: Treatment Not Indicated
[2022-07-23 11:52] VITALS: BP 140/62; PULSE 58; RESP 20; TEMP 36.6; O2SAT 97
[2022-07-23 11:59] LABS: Glucose, Whole Blood 208 mg/dL (60-115)
[2022-07-23] MEDS: Insulin Lispro 100 UNIT/ML 3 ML VIAL SUBCUT ×2 (12:44→16:57)
--- NOTE | 2022-07-23 12:58 | MHC.CM.PN ---
EMR REVIEWED, PT W/SEPSIS/ACUTE CHOLECYSTITIS, PER HOSPITALIST PT WOULD LIKE SECOND OPINION REGARDING SURGICAL PLAN, NO PLAN FOR D/C AT THIS TIME, ANTIC PT WILL RETURN HOME [facility] FOR SN/OT ONCE MEDICALLY CLEARED. CM WILL CONT TO FOLLOW D/C NEEDS.
[2022-07-23] MEDS: cefTRIAXone sodium 1 GM in 0.9 % Sodium Chloride 50 ML IV (14:05)
--- NOTE | 2022-07-23 14:06 | HO.PM.IMPN ---
Subjective Subjective Date of Service: 07/23/22 Interval History: No RUQ pain No N/V Surgeon recommending outpt management. Pt and daughter request 2nd opinion Recently had stress test for preop risk stratification Overnight had brief episodes of pAF up to 162, without symptoms Review of Systems Review of Systems: Yes all other systems are reviewed and are negative Physical Exam Vital Signs: Vital Signs: Last Vital Signs Temp 97.9 F 07/23/22 11:52 Pulse 58 07/23/22 11:52 Resp 20 07/23/22 11:52 BP 140/62 H 07/23/22 11:52 Pulse Ox 97 07/23/22 11:52 O2 Del Method Room Air 07/23/22 11:52 O2 Flow Rate 2 07/22/22 11:42 BMI result Body Mass Index 25.1 Gen: in no acute distress HEENT: sclera anicteric, moist mucus membranes Neck: supple Lungs: clear to auscultation bilaterally Heart: regular rate and rhythm, no murmurs Abd: soft, non-tender, non-distended, cholecystostomy tube with old fluid Ext: no edema Skin: warm/well-perfused Neuro: alert and oriented x3, no focal findings Psych: appropriate affect Objective Data Active Medications Acetaminophen (Acetaminophen 325 Mg Tablet) 650 mg PO Q6H PRN PRN Reason: Pain, Mild (Pain Scale 1-3) Glucose (Glucose Gel 15 Gm Gel..Gram.) 15 gm PO Q15M PRN; Protocol PRN Reason: per Hypoglycemia Standing Ord. Last Admin: 07/20/22 06:03 Dose: 15 gm Documented By: RANDY Dextrose ([email or web address]) 250 mls @ 750 mls/hr IV Q15M PRN; Protocol PRN Reason: per Hypoglycemia Standing Ord. Last Infusion: 07/21/22 00:15 Dose: 0 mls/hr Documented By: ISAIAH Ceftriaxone Sodium 1 gm/ (Sodium Chloride) 50 mls @ 100 mls/hr IV Q24H [facility] Last Admin: 07/23/22 14:05 Dose: 100 mls/hr Documented By: RUSSELL Metronidazole (Flagyl) 500 mg in 100 mls @ 100 mls/hr IV Q8H [facility] Last Infusion: 07/23/22 14:02 Dose: 0 mls/hr Documented By: RUSSELL Insulin Human Lispro (Insulin Lispro 100 Unit/Ml 3 Ml Vial) 0 unit SUBCUT Q6H [facility]; Protocol Last Admin: 07/23/22 12:44 Dose: 8 unit Documented By: RUSSELL Lorazepam (Lorazepam 0.5 Mg Tablet) 0.5 mg PO Q12H PRN PRN Reason: Anxiety Melatonin (Melatonin 3 Mg Tablet) 6 mg PO BEDTIME PRN PRN Reason: Insomnia Metoprolol Tartrate (Metoprolol Tartrate 50 Mg Tablet) 50 mg PO BID [facility]; Protocol Last Admin: 07/23/22 09:22 Dose: 50 mg Documented By: RUSSELL Morphine Sulfate (Morphine Sulfate 4 Mg/Ml Cartridge) 3 mg IVPUSH Q4H PRN; Protocol PRN Reason: Pain, Severe (Pain Scale 7-10) Ondansetron HCl (Ondansetron Hcl 4 Mg/2 Ml Vial) 4 mg IVPUSH Q8H PRN PRN Reason: Nausea and Vomiting Pharmacy Consult (Consult Rx Perform Med Rec) 1 each MISCELLANE ONCE PRN PRN Reason: Consult order Sodium Chloride (0.9 % Sodium Chloride Flush 3 Ml Syringe) [facility] Last Admin: 07/23/22 09:23 Dose: 3 ml Documented By: RUSSELL Labs 07/21/22 06:16 07/23/22 04:20 Labs: Laboratory Results - last 24 hr 07/22/22 07/22/22 07/22/22 15:51 19:53 23:48 PT INR Anion Gap Estim Creat Clear Calc Estimated GFR POC Glucose 205 H 97 80 Random Glucose Calcium Total Bilirubin Direct Bilirubin AST ALT Alkaline Phosphatase Total Protein Albumin 07/23/22 07/23/22 07/23/22 04:20 04:20 05:04 PT 11.2 INR 1.0 Anion Gap 14 Estim Creat Clear Calc 74.8 Estimated GFR > 60 POC Glucose 119 H Random Glucose 94 Calcium 8.9 D Total Bilirubin 2.6 H Direct Bilirubin 1.5 H AST 42 H ALT 140 H Alkaline Phosphatase 292 H Total Protein 6.0 L Albumin 3.2 L 07/23/22 07/23/22 07:53 11:51 PT INR Anion Gap Estim Creat Clear Calc Estimated GFR POC Glucose 146 H 208 H Random Glucose Calcium Total Bilirubin Direct Bilirubin AST ALT Alkaline Phosphatase Total Protein Albumin Assessment and Plan (1) Abnormal LFTs: Status: Acute (2) Acute calculous cholecystitis: Status: Acute Plan d#5 77yo M with psoriatic arthritis, paroxysmal atrial fibrillation not on anticoagulation, diabetes mellitus type 2 on insulin, and 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 2nd opinion requested # paroxysmal AF - continue metoprolol - also had brief episode last hospitalization, not placed on anticoagluation as the AF self-terminated and was thought secondary to acute medical issues - Cardiology consult, also review for preop risk stratification [recently had stress test] # DM2, A1c 7.9 - correction-dose lispro # psoriatic arthritis - hold etanercept + methotrexate # HTN - continue metoprolol; holding amlodipine, furosemide, and lisinopril due to sepsis # VTE ppx: SCDs # dispo: TBD In my clinical judgment, the patient requires continued inpatient hospitalization for the following reasons: IV ABX, surgical consultation Time Spent With Patient Time: Total time managing care of this patient today _50___ minutes. Quality Stroke Does the patient have a stroke diagnosis?: No VTE Prior VTE?: No VTE Risk Level:: Medical - moderate - high VTE Device Contraindication: N/A - Device Ordered VTE Drug Contraindication: Treatment Not Indicated
[2022-07-23 15:29] VITALS: BP 150/75; PULSE 64; RESP 20; TEMP 36.7; O2SAT 94
--- NOTE | 2022-07-23 16:08 | PM.PNGS ---
Subjective Subjective Date of Service: 07/23/22 Interval history: I was asked to see the patient for 2nd opinion with regards to his gall stones He denies any abdominal pain He has good oral intake He has had no fever for many days Physical Exam Vital Signs: Vital Signs: Last Vital Signs Temp 98.1 F 07/23/22 15:29 Pulse 64 07/23/22 15:29 Resp 20 07/23/22 15:29 BP 150/75 H 07/23/22 15:29 Pulse Ox 94 07/23/22 15:29 O2 Del Method Room Air 07/23/22 15:29 O2 Flow Rate 2 07/22/22 11:42 BMI result Body Mass Index 25.1 Const: General: comfortable and no acute distress Orientation/consciousness: patient oriented x3 Resp: Effort & Inspection: normal respiratory effort Cardio: Rate: regular rate GI: Other: No Hill's sign Palpation (GI): Soft to palpation, not firm, nontender and no guarding Neuro: General: patient oriented x3 Objective Data Active Medications Acetaminophen (Acetaminophen 325 Mg Tablet) 650 mg PO Q6H PRN PRN Reason: Pain, Mild (Pain Scale 1-3) Glucose (Glucose Gel 15 Gm Gel..Gram.) 15 gm PO Q15M PRN; Protocol PRN Reason: per Hypoglycemia Standing Ord. Last Admin: 07/20/22 06:03 Dose: 15 gm Documented By: RANDY Dextrose (D10) 250 mls @ 750 mls/hr IV Q15M PRN; Protocol PRN Reason: per Hypoglycemia Standing Ord. Last Infusion: 07/21/22 00:15 Dose: 0 mls/hr Documented By: ISAIAH Ceftriaxone Sodium 1 gm/ (Sodium Chloride) 50 mls @ 100 mls/hr IV Q24H [facility] Last Infusion: 07/23/22 15:21 Dose: 0 mls/hr Documented By: RUSSELL Metronidazole (Flagyl) 500 mg in 100 mls @ 100 mls/hr IV Q8H [facility] Last Infusion: 07/23/22 14:02 Dose: 0 mls/hr Documented By: RUSSELL Insulin Human Lispro (Insulin Lispro 100 Unit/Ml 3 Ml Vial) 0 unit SUBCUT Q6H [facility]; Protocol Last Admin: 07/23/22 12:44 Dose: 8 unit Documented By: RUSSELL Lorazepam (Lorazepam 0.5 Mg Tablet) 0.5 mg PO Q12H PRN PRN Reason: Anxiety Melatonin (Melatonin 3 Mg Tablet) 6 mg PO BEDTIME PRN PRN Reason: Insomnia Metoprolol Tartrate (Metoprolol Tartrate 50 Mg Tablet) 50 mg PO BID [facility]; Protocol Last Admin: 07/23/22 09:22 Dose: 50 mg Documented By: RUSSELL Morphine Sulfate (Morphine Sulfate 4 Mg/Ml Cartridge) 3 mg IVPUSH Q4H PRN; Protocol PRN Reason: Pain, Severe (Pain Scale 7-10) Ondansetron HCl (Ondansetron Hcl 4 Mg/2 Ml Vial) 4 mg IVPUSH Q8H PRN PRN Reason: Nausea and Vomiting Pharmacy Consult (Consult Rx Perform Med Rec) 1 each MISCELLANE ONCE PRN PRN Reason: Consult order Sodium Chloride (0.9 % Sodium Chloride Flush 3 Ml Syringe) 3 ml IVFLUSH QSHIFT [facility] Last Admin: 07/23/22 09:23 Dose: 3 ml Documented By: RUSSELL Labs 07/21/22 06:16 07/23/22 04:20 Labs: Laboratory Results - last 24 hr 07/22/22 07/22/22 07/22/22 15:51 19:53 23:48 PT INR Anion Gap Estim Creat Clear Calc Estimated GFR POC Glucose 205 H 97 80 Random Glucose Calcium Total Bilirubin Direct Bilirubin AST ALT Alkaline Phosphatase Total Protein Albumin 07/23/22 07/23/22 07/23/22 04:20 04:20 05:04 PT 11.2 INR 1.0 Anion Gap 14 Estim Creat Clear Calc 74.8 Estimated GFR > 60 POC Glucose 119 H Random Glucose 94 Calcium 8.9 D Total Bilirubin 2.6 H Direct Bilirubin 1.5 H AST 42 H ALT 140 H Alkaline Phosphatase 292 H Total Protein 6.0 L Albumin 3.2 L 07/23/22 07/23/22 07:53 11:51 PT INR Anion Gap Estim Creat Clear Calc Estimated GFR POC Glucose 146 H 208 H Random Glucose Calcium Total Bilirubin Direct Bilirubin AST ALT Alkaline Phosphatase Total Protein Albumin Procedures Date of Service Date of Service: 07/23/22 Progress Note: A&P Assessment and plan (1) Gallstones: Status: Acute Assessment and Plan: Continues to have elevated bilirubin I would recommend workup for CBD obstruction including MRCP He does not appear that he has acute cholecystitis clinically He does have a history of tube cholecystostomy last April for cholecystitis HIDA scan will therefore be difficult to interpret because of this He appears to be asymptomatic otherwise He does not have any Hill sign He is interested in cholecystectomy I reviewed with him the technique of this procedure I explained the risks including but not limited to bleeding, infections, injury to other organs The question would be when this would be appropriate I do agree with Dr. Sifuentes that he does not clinically have acute cholecystitis Again as stated above, I would recommend proceeding with workup for his elevated bilirubin Otherwise has a very benign exam Time Spent With Patient Time: Total time managing care of this patient today ____ minutes. Quality Stroke Does the patient have a stroke diagnosis?: No VTE Prior VTE?: No VTE Risk Level:: Medical - moderate - high VTE Device Contraindication: N/A - Device Ordered VTE Drug Contraindication: Treatment Not Indicated
[2022-07-23 16:40] LABS: Glucose, Whole Blood 202 mg/dL (60-115)
[2022-07-23 19:59] VITALS: BP 138/59; PULSE 77; RESP 20; TEMP 36.2; O2SAT 95
[2022-07-23 20:51] LABS: Glucose, Whole Blood 198 mg/dL (60-115)
[2022-07-24] VITALS (7 sets, daily range): BP systolic 114–175; BP diastolic 50–77; PULSE 67–88; RESP 16–18; TEMP 36.5–37.6; O2SAT 93–97
[2022-07-24 00:37] LABS: Glucose, Whole Blood 147 mg/dL (60-115)
[2022-07-24 05:02] LABS: Glucose, Whole Blood 136 mg/dL (60-115)
[2022-07-24 05:43] LABS: Hematocrit 38.5 % (42.0-52.0); Hemoglobin 12.9 g/dl (14.0-18.0); Mean Corpuscular HGB Conc 33.5 g/dl (31.0-36.0); Mean Corpuscular Hemoglobin 30.4 pg (27.0-33.0); Mean Corpuscular Volume 90.8 fL (80.0-98.0); Platelet Count 207 X10*3/uL (160-400); Red Blood Count 4.24 X10*6/uL (4.60-5.80); Red Cell Distribution Width 15.9 % (11.0-16.0); White Blood Count 9.1 X10*3/uL (4.8-10.8)
[2022-07-24] MEDS: metroNIDAZOLE/NS 500 MG/100 ML PIGGYBACK 100 MG IV ×2 (06:06→11:40)
[2022-07-24 06:15] LABS: Alanine Aminotransferase 101 U/L (0-40); Alkaline Phosphatase 346 U/L (39-117); Anion Gap 13 (12-20); Aspartate Amino Transferase 31 U/L (5-37); Bilirubin Direct 1.1 mg/dL (0.0-0.5); Blood Urea Nitrogen 13 mg/dL (9-16); Calcium 8.4 mg/dL (8.4-10.2); Carbon Dioxide 22 mmol/L (22-29); Chloride 107 mmol/L (96-108); Creatinine Clr Calc Pharmacy 78.5; Estimated Glomerular Filt Rate > 60; Glucose Random 134 mg/dL (60-115); Potassium 3.7 mmol/L (3.3-5.1); Sodium 138 mmol/L (135-145); Total Protein 5.4 g/dL (6.5-8.0)
[2022-07-24 08:02] LABS: Glucose, Whole Blood 167 mg/dL (60-115)
[2022-07-24 08:40] LABS: C Reactive Protein 7.87 mg/dL (< or = 0.50)
[2022-07-24] MEDS: Metoprolol Tartrate 50 MG TABLET PO ×2 (08:40→22:12)
[2022-07-24] MEDS: 0.9 % Sodium Chloride Flush 3 ML SYRINGE IVFLUSH ×2 (08:41→17:32)
--- NOTE | 2022-07-24 08:48 | ECG_ITS ---
Test Reason : rapid afib Blood Pressure : / mmHG Vent. Rate : 119 BPM Atrial Rate : 278 BPM P-R Int : 000 ms QRS Dur : 082 ms QT Int : 280 ms P-R-T Axes : 000 049 023 degrees QTc Int : 393 ms Atrial flutter with variable A-V block Abnormal ECG When compared with ECG of 19-JUL-2022 14:49, Atrial flutter has replaced Sinus rhythm Non-specific change in ST segment in Inferior leads Referred By: Johnane Li Electronically Signed By:CHAZ KNAPP MD
[2022-07-24] MEDS: Metoprolol Tartrate 5 MG/5 ML VIAL IVPUSH (09:28)
--- NOTE | 2022-07-24 10:10 | P.CONCA_ITS ---
History of Present Illness History of Present Illness Date of Service: 07/24/22 Requesting physician: Johanne Li Consult reason: pre-op evaluation Chief complaint: severe sepsis/ acute cholecystitis Narrative: I was consulted to see Villa in cardiology consultation today for preoperative cardiovascular risk stratification and with intermittent episodes of atrial flutter. He is a 77-year-old male who has recurrent Annmarie admitted to the hospital with severe sepsis related to cholecystitis. Patient since yesterday has been having intermittent episodes of atrial flutter with rapid ventricular response with intermittent sinus rhythm. Patient has absolutely no symptoms related to this. Patient had recently undergone preoperative cardiovascular risk stratification and myocardial perfusion imaging was within normal limits with preserved LV systolic function by echocardiogram. He has had no prior cardiac history as per him. He denies any symptoms of chest pain or shortness of breath. Denies any lightheadedness, feeling like he is going to pass out. He is noted to have rapid atrial flutter. He was admitted recently to the hospital with severe E coli sepsis related to cholecystitis and at that time also had intermittent episode of atrial fibrillation related to his acute medical/ surgical illness. Patient has been readmitted with severe sepsis again and there was a question about pursuing cholecystectomy in concerned about his cardiac status. Review of Systems Constitutional: Constitutional: Reports malaise Eyes: Eyes: Reports no additional eye complaints Cardiovascular: Cardiovascular: Reports no additional cardiovascular complaints Respiratory: Respiratory: Reports no additional respiratory complaints Musculoskeletal: Musculoskeletal: Reports no additional musculoskeletal complaints Integumentary/Breasts: Skin/Breast: Reports system reviewed and no additional complaints, except as docu Neurologic: Reports system reviewed and no additional complaints, except as documented Psychiatric: Psychiatric: Reports no additional psychiatric complaints [facility] Past Medical History Medical History Abnormal LFTs ADHD Back pain Cardiomegaly Diabetes Diabetic retinopathy Encounter for screening for other viral diseases Gallstones Gout Hypertension Immunosuppression due to drug therapy 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, 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, 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 New onset a-fib Normal pressure hydrocephalus Obstructive sleep apnea Paroxysmal atrial fibrillation Protein malnutrition Psoriasis Psoriatic arthritis Restless leg syndrome Screening-pulmonary TB Social History Social History Household Members: None Household Members Other:: lives alone Housing: House Do you presently have visiting nurse or other home services: No Alcohol intake: current Alcohol intake frequency: a few times a month Patient Tobacco Use Status: Never used Tobacco e-Cigarette/Vaping Use: Never Used service: No Current occupational status: retired Current occupation: [employer] Allergies Allergy/AdvReac Type Severity Reaction Status Date / Time famotidine [From Pepcid] Allergy Intermediate Hallucinati Verified 06/18/22 08:39 ons Active Medications: Current Medications Acetaminophen (Acetaminophen 325 Mg Tablet) 650 mg PO Q6H PRN PRN Reason: Pain, Mild (Pain Scale 1-3) Glucose (Glucose Gel 15 Gm Gel..Gram.) 15 gm PO Q15M PRN; Protocol PRN Reason: per Hypoglycemia Standing Ord. Last Admin: 07/20/22 06:03 Dose: 15 gm Dextrose (D10) 250 mls @ 750 mls/hr IV Q15M PRN; Protocol PRN Reason: per Hypoglycemia Standing Ord. Last Infusion: 07/21/22 00:15 Dose: Infused Ceftriaxone Sodium 1 gm/ (Sodium Chloride) 50 mls @ 100 mls/hr IV Q24H [facility] Last Infusion: 07/23/22 15:21 Dose: Infused Metronidazole (Flagyl) 500 mg in 100 mls @ 100 mls/hr IV Q8H [facility] Last Infusion: 07/24/22 07:43 Dose: Infused Insulin Human Lispro (Insulin Lispro 100 Unit/Ml 3 Ml Vial) 0 unit SUBCUT Q6H [facility]; Protocol Last Admin: 07/24/22 05:07 Dose: Not Given Lorazepam (Lorazepam 0.5 Mg Tablet) 0.5 mg PO Q12H PRN PRN Reason: Anxiety Melatonin (Melatonin 3 Mg Tablet) 6 mg PO BEDTIME PRN PRN Reason: Insomnia Metoprolol Tartrate (Metoprolol Tartrate 50 Mg Tablet) 50 mg PO BID [facility]; Protocol Last Admin: 07/24/22 08:40 Dose: 50 mg Morphine Sulfate (Morphine Sulfate 4 Mg/Ml Cartridge) 3 mg IVPUSH Q4H PRN; Protocol PRN Reason: Pain, Severe (Pain Scale 7-10) Ondansetron HCl (Ondansetron Hcl 4 Mg/2 Ml Vial) 4 mg IVPUSH Q8H PRN PRN Reason: Nausea and Vomiting Pharmacy Consult (Consult Rx Perform Med Rec) 1 each MISCELLANE ONCE PRN PRN Reason: Consult order Sodium Chloride (0.9 % Sodium Chloride Flush 3 Ml Syringe) 3 ml IVFLUSH QSHIFT [facility] Last Admin: 07/24/22 08:41 Dose: 3 ml Home Medications Medication Instructions Recorded Confirmed Last Taken Type amlodipine 10 mg tablet 10 mg PO DAILY 11/22/21 07/19/22 04/25/22 History atorvastatin 20 mg tablet 20 mg PO DAILY 11/22/21 07/19/22 04/25/22 History cholecalciferol (vitamin D3) 125 125 mcg PO DAILY 11/22/21 07/19/22 04/25/22 History mcg (5,000 unit) capsule furosemide 40 mg tablet 40 mg PO DAILY 11/22/21 07/19/22 04/25/22 History metoprolol tartrate 50 mg tablet 50 mg PO BID 11/22/21 07/19/22 04/25/22 History insulin glargine 100 unit/mL (3 45 unit subcut BEDTIME 04/28/22 07/19/22 04/25/22 History mL) subcutaneous pen (Lantus Solostar U-100 Insulin) insulin lispro 100 unit/mL 0 sliding scale dose subcut TID 06/18/22 07/19/22 Unknown History subcutaneous pen (Humalog KwikPen (U-100) Insulin) lisinopril 5 mg tablet 5 mg PO DAILY 06/18/22 07/19/22 Unknown History metformin 500 mg tablet,extended 1,000 mg PO BID 06/18/22 07/19/22 Unknown Histo ry release 24 hr methotrexate sodium 2.5 mg tablet 20 mg PO QWEEK 06/18/22 07/19/22 Unknown History dapagliflozin 5 mg tablet (xiga) 5 mg PO DAILY 07/19/22 07/19/22 Unknown History glipizide 10 mg tablet, extended 10 mg PO BID 07/19/22 07/19/22 Unknown History release 24 hr Physical Exam Vital Signs: Vital Signs: Last Vital Signs Temp 97.7 F 07/24/22 07:36 Pulse 88 07/24/22 07:36 Resp 16 07/24/22 07:36 BP 114/50 L 07/24/22 09:19 Pulse Ox 96 07/24/22 07:36 O2 Del Method Room Air 07/24/22 07:36 O2 Flow Rate 2 07/22/22 11:42 BMI result Body Mass Index 25.1 Const: General: cooperative, comfortable, no acute distress, alert and awake Nutritional Appearance: average body habitus Orientation/consciousness: patient oriented x3 HEENT: Head: Yes normocephalic and Yes atraumatic Neck: Neck: Yes trachea midline, Yes supple and Yes no JVD Resp: Effort & Inspection: normal respiratory effort Auscultation: clear to auscultation bilaterally Cardio: Rate: tachycardic Heart sounds: S1 normal heart sound present, S2 normal heart sound present, no click, no gallops, no murmurs and no rubs Skin: General skin exam: no rashes or lesions noted and ecchymosis Neuro: General: patient oriented x3 and no focal motor deficits Extrem: General: Yes no clubbing, cyanosis or edema Objective Labs and Meds 07/24/22 04:29 07/24/22 04:29 Lab results: Laboratory Results - last 24 hr 07/23/22 07/23/22 07/23/22 11:51 16:36 20:43 WBC RBC Hgb Hct MCV MCH MCHC RDW Plt Count MPV Absolute Nucleated RBC Nucleated RBC % (auto) Sodium Potassium Chloride Carbon Dioxide Anion Gap BUN Creatinine Estim Creat Clear Calc Estimated GFR POC Glucose 208 H 202 H 198 H Random Glucose Calcium Total Bilirubin Direct Bilirubin AST ALT Alkaline Phosphatase C-Reactive Protein Total Protein Albumin 07/24/22 07/24/22 07/24/22 00:34 04:29 04:29 WBC 9.1 RBC 4.24 L Hgb 12.9 L Hct 38.5 L MCV 90.8 MCH 30.4 MCHC 33.5 RDW 15.9 Plt Count 207 D MPV 10.0 Absolute Nucleated RBC 0.000 Nucleated RBC % (auto) 0.0 Sodium 138 Potassium 3.7 Chloride 107 Carbon Dioxide 22 Anion Gap 13 BUN 13 Creatinine 0.80 Estim Creat Clear Calc 78.5 Estimated GFR > 60 POC Glucose 147 H Random Glucose 134 H Calcium 8.4 Total Bilirubin 2.0 H Direct Bilirubin 1.1 H AST 31 ALT 101 H Alkaline Phosphatase 346 H C-Reactive Protein 7.87 H Total Protein 5.4 L Albumin 3.0 L 07/24/22 07/24/22 04:54 07:58 WBC RBC Hgb Hct MCV MCH MCHC RDW Plt Count MPV Absolute Nucleated RBC Nucleated RBC % (auto) Sodium Potassium Chloride Carbon Dioxide Anion Gap BUN Creatinine Estim Creat Clear Calc Estimated GFR POC Glucose 136 H 167 H Random Glucose Calcium Total Bilirubin Direct Bilirubin AST ALT Alkaline Phosphatase C-Reactive Protein Total Protein Albumin EKG on admission showed sinus tachycardia with no acute ST wave changes. Assessment and Plan (1) Preoperative cardiovascular examination: Status: Resolved patient admitted with recurrent sepsis related to gallbladder and needs cholecystectomy urgently. Patient has 2nd admission with sepsis. Currently being evaluated by surgery. He had recent cardiac workup which had showed no evidence of myocardial ischemia and normal LV systolic function. His current cardiac abnormality of rapid atrial flutter is most likely related to acute medical/ surgical illness. He has no prior history of atrial flutter. Clinically has no signs or symptoms of heart failure no symptoms of angina. I would control his atrial flutter with IV amiodarone and I think he is currently optimized for this urgent surgery to prevent recurrent sepsis syndrome with low to intermediate risk for perioperative cardiovascular morbidity mortality. If rate remains difficult control through the surgery can use IV esmolol as well for better rate control. Close attention to hemodynamics as well as avoidance of fluid overload should be pursued. Blood loss should be to place quickly. Please consult me during the surgery without any further issues. (2) Atrial flutter with rapid ventricular response: Status: Acute Recurrent atrial flutter with rapid ventricular response most likely induced by his acute medical/surgical illness. Will start on IV amiodarone for rhythm control and /rate control. If remains difficult control can use IV esmolol during surgery. Currently getting Lovenox but once surgery is completed and surgeon's clear him for anticoagulation would start him on oral anticoagulation for at least 4-6 weeks and determine whether he has recurrent arrhythmias in the future. Will continue to follow with you Time Spent With Patient Time: Total time managing care of this patient today ____ minutes. Procedures Date of Service Date of Service: 07/24/22
--- NOTE | 2022-07-24 10:12 | HO.PM.IMPN ---
Subjective Subjective Date of Service: 07/24/22 Interval History: Went in to rapid AF this morning. Denies lightheadedness or palpitations. No N/V/RUQ pain. Review of Systems Review of Systems: Yes all other systems are reviewed and are negative Physical Exam Vital Signs: Vital Signs: Last Vital Signs Temp 97.7 F 07/24/22 07:36 Pulse 88 07/24/22 07:36 Resp 16 07/24/22 07:36 BP 114/50 L 07/24/22 09:19 Pulse Ox 96 07/24/22 07:36 O2 Del Method Room Air 07/24/22 07:36 O2 Flow Rate 2 07/22/22 11:42 BMI result Body Mass Index 25.1 Gen: in no acute distress HEENT: sclera anicteric, moist mucus membranes Neck: supple Lungs: clear to auscultation bilaterally Heart: rapid + irregular, no murmurs Abd: soft, non-tender, non-distended, cholecystostomy tube Ext: no edema Skin: warm/well-perfused Neuro: alert and oriented x3, no focal findings Psych: appropriate affect Objective Data Active Medications Acetaminophen (Acetaminophen 325 Mg Tablet) 650 mg PO Q6H PRN PRN Reason: Pain, Mild (Pain Scale 1-3) Glucose (Glucose Gel 15 Gm Gel..Gram.) 15 gm PO Q15M PRN; Protocol PRN Reason: per Hypoglycemia Standing Ord. Last Admin: 07/20/22 06:03 Dose: 15 gm Documented By: RANDY Dextrose (D10) 250 mls @ 750 mls/hr IV Q15M PRN; Protocol PRN Reason: per Hypoglycemia Standing Ord. Last Infusion: 07/21/22 00:15 Dose: 0 mls/hr Documented By: ISAIAH Ceftriaxone Sodium 1 gm/ (Sodium Chloride) 50 mls @ 100 mls/hr IV Q24H [facility] Last Infusion: 07/23/22 15:21 Dose: 0 mls/hr Documented By: RUSSELL Metronidazole (Flagyl) 500 mg in 100 mls @ 100 mls/hr IV Q8H [facility] Last Infusion: 07/24/22 07:43 Dose: 0 mls/hr Documented By: RUSSELL Insulin Human Lispro (Insulin Lispro 100 Unit/Ml 3 Ml Vial) 0 unit SUBCUT Q6H [facility]; Protocol Last Admin: 07/24/22 05:07 Dose: Not Given Documented By: MARIVEL Non-Admin Reason: No Insulin Coverage Lorazepam (Lorazepam 0.5 Mg Tablet) 0.5 mg PO Q12H PRN PRN Reason: Anxiety Melatonin (Melatonin 3 Mg Tablet) 6 mg PO BEDTIME PRN PRN Reason: Insomnia Metoprolol Tartrate (Metoprolol Tartrate 50 Mg Tablet) 50 mg PO BID [facility]; Protocol Last Admin: 07/24/22 08:40 Dose: 50 mg Documented By: RUSSELL Morphine Sulfate (Morphine Sulfate 4 Mg/Ml Cartridge) 3 mg IVPUSH Q4H PRN; Protocol PRN Reason: Pain, Severe (Pain Scale 7-10) Ondansetron HCl (Ondansetron Hcl 4 Mg/2 Ml Vial) 4 mg IVPUSH Q8H PRN PRN Reason: Nausea and Vomiting Pharmacy Consult (Consult Rx Perform Med Rec) 1 each MISCELLANE ONCE PRN PRN Reason: Consult order Sodium Chloride (0.9 % Sodium Chloride Flush 3 Ml Syringe) [facility] Last Admin: 07/24/22 08:41 Dose: 3 ml Documented By: RUSSELL Labs 07/24/22 04:29 07/24/22 04:29 Labs: Laboratory Results - last 24 hr 07/23/22 07/23/22 07/23/22 11:51 16:36 20:43 MCV MCH MCHC RDW Plt Count MPV Absolute Nucleated RBC Nucleated RBC % (auto) Anion Gap Estim Creat Clear Calc Estimated GFR POC Glucose 208 H 202 H 198 H Random Glucose Calcium Total Bilirubin Direct Bilirubin AST ALT Alkaline Phosphatase C-Reactive Protein Total Protein Albumin 07/24/22 07/24/22 07/24/22 00:34 04:29 04:29 MCV 90.8 MCH 30.4 MCHC 33.5 RDW 15.9 Plt Count 207 D MPV 10.0 Absolute Nucleated RBC 0.000 Nucleated RBC % (auto) 0.0 Anion Gap 13 Estim Creat Clear Calc 78.5 Estimated GFR > 60 POC Glucose 147 H Random Glucose 134 H Calcium 8.4 Total Bilirubin 2.0 H Direct Bilirubin 1.1 H AST 31 ALT 101 H Alkaline Phosphatase 346 H C-Reactive Protein 7.87 H Total Protein 5.4 L Albumin 3.0 L 07/24/22 07/24/22 04:54 07:58 MCV MCH MCHC RDW Plt Count MPV Absolute Nucleated RBC Nucleated RBC % (auto) Anion Gap Estim Creat Clear Calc Estimated GFR POC Glucose 136 H 167 H Random Glucose Calcium Total Bilirubin Direct Bilirubin AST ALT Alkaline Phosphatase C-Reactive Protein Total Protein Albumin Assessment and Plan (1) Abnormal LFTs: Status: Acute (2) Acute calculous cholecystitis: Status: Acute Plan d#6 77yo M with psoriatic arthritis, paroxysmal atrial fibrillation not on anticoagulation, diabetes mellitus type 2 on insulin, and normal pressure hydrocephalus with DEVELOPMENT TEAM LEAD shunt, history of cholecystitis managed with cholecystostomy tube placed 04/30/22 brought in to [facility] by EMS due to generalized weakness admitted for severe sepsis due to cholecystitis. # paroxysmal AF with RVR - start amiodarone drip - continue metoprolol - start therapeutic enoxaparin for AC - Cardiology consult for AF and for preop risk stratification # severe sepsis due to acute cholecystitis - sepsis resolved, CT A/P +abd US consistent with acute cholecytiis - pip-iman 07/19-07/20, then ceftriaxone/metronidazole 07/20-present due to prior culture showing E coli, Klebseilla, and Bacteroides - MRCP not done due to DEVELOPMENT TEAM LEAD shunt - HIDA scan: nonvisualized GB, could be due to cystic duct obstruction [not due to the cholecystostomy tube as it is not even in the gallbladder] - per Surgery, high risk for surgery and would not operate at this time; in addition, abdomen soft/non-tender. 2nd opinion requested from Dr Mariee as Dr Martinez and I feel strongly that definitive source control is indicated given his 2nd episode of biliary sepsis # DM2, A1c 7.9 - correction-dose lispro # psoriatic arthritis - hold etanercept + methotrexate # HTN - continue metoprolol; holding amlodipine, furosemide, and lisinopril due to sepsis # VTE ppx: LMWH # dispo: TBD In my clinical judgment, the patient requires continued inpatient hospitalization for the following reasons: IV ABX, surgical consultation Time Spent With Patient Time: Total time managing care of this patient today __55__ minutes. Quality Stroke Does the patient have a stroke diagnosis?: No VTE Prior VTE?: No VTE Risk Level:: Medical - moderate - high VTE Device Contraindication: N/A - Device Ordered VTE Drug Contraindication: Treatment Not Indicated
[2022-07-24 10:40] LABS: Magnesium 1.9 mg/dL (1.6-2.6)
[2022-07-24 10:58] LABS: Thyroid Stimulating Hormone 3.27 uIU/mL (0.32-4.0)
[2022-07-24] MEDS: Amiodarone/Dextrose 150 MG/100 ML PLAST..BAG 600 MG IV (10:58)
[2022-07-24] MEDS: Amiodarone HCL 900 MG in 0.9 % Sodium Chloride 500 ML 34.53 MG IVCONT (11:39)
[2022-07-24] MEDS: Enoxaparin Sodium 80 MG/0.8 ML SYRINGE SUBCUT (11:40)
[2022-07-24 12:02] LABS: Glucose, Whole Blood 286 mg/dL (60-115)
[2022-07-24] MEDS: Insulin Lispro 100 UNIT/ML 3 ML VIAL SUBCUT ×2 (13:03→17:32)
[2022-07-24] MEDS: cefTRIAXone sodium 1 GM in 0.9 % Sodium Chloride 50 ML IV (13:03)
--- NOTE | 2022-07-24 15:07 | P.PNGS_ITS ---
Subjective Subjective Date of Service: 07/25/22 Interval history: Denies abdominal pain at this time Good oral intake Physical Exam Vital Signs: Vital Signs: Last Vital Signs Temp 97.7 F 07/24/22 07:36 Pulse 88 07/24/22 07:36 Resp 16 07/24/22 07:36 BP 114/50 L 07/24/22 09:19 Pulse Ox 96 07/24/22 07:36 O2 Del Method Room Air 07/24/22 07:36 O2 Flow Rate 2 07/22/22 11:42 BMI result Body Mass Index 25.1 Const: General: comfortable and no acute distress Eyes: Sclerae: sclerae normal Resp: Effort & Inspection: normal respiratory effort Cardio: Rhythm: abnormal rhythm GI: Palpation (GI): Soft to palpation, not firm, nontender and no guarding Objective Data Active Medications Acetaminophen (Acetaminophen 325 Mg Tablet) 650 mg PO Q6H PRN PRN Reason: Pain, Mild (Pain Scale 1-3) Enoxaparin Sodium (Enoxaparin Sodium 80 Mg/0.8 Ml Syringe) 80 mg SUBCUT Q12H [facility] Last Admin: 07/24/22 11:40 Dose: 80 mg Documented By: RUSSELL Glucose (Glucose Gel 15 Gm Gel..Gram.) 15 gm PO Q15M PRN; Protocol PRN Reason: per Hypoglycemia Standing Ord. Last Admin: 07/20/22 06:03 Dose: 15 gm Documented By: RANDY Dextrose (D10) 250 mls @ 750 mls/hr IV Q15M PRN; Protocol PRN Reason: per Hypoglycemia Standing Ord. Last Infusion: 07/21/22 00:15 Dose: 0 mls/hr Documented By: ISAIAH Ceftriaxone Sodium 1 gm/ (Sodium Chloride) 50 mls @ 100 mls/hr IV Q24H [facility] Last Infusion: 07/24/22 14:08 Dose: 0 mls/hr Documented By: RUSSELL Metronidazole (Flagyl) 500 mg in 100 mls @ 100 mls/hr IV Q8H [facility] Last Infusion: 07/24/22 13:00 Dose: 0 mls/hr Documented By: RUSSELL Amiodarone HCl 900 mg/ Sodium (Chloride) 518 mls @ 34.533 mls/hr IVCONT .Q15H1M [facility]; Protocol Last Admin: 07/24/22 11:39 Dose: 1 mg/min, 34.53 mls/hr Documented By: RUSSELL Cefotetan Disodium 2 gm/ (Sodium Chloride) 50 mls @ 100 mls/hr IV PREOP ONE Stop: 07/25/22 14:42 Insulin Human Lispro (Insulin Lispro 100 Unit/Ml 3 Ml Vial) 0 unit SUBCUT Q6H [facility]; Protocol Last Admin: 07/24/22 13:03 Dose: 10 unit Documented By: RUSSELL Lorazepam (Lorazepam 0.5 Mg Tablet) 0.5 mg PO Q12H PRN PRN Reason: Anxiety Melatonin (Melatonin 3 Mg Tablet) 6 mg PO BEDTIME PRN PRN Reason: Insomnia Metoprolol Tartrate (Metoprolol Tartrate 50 Mg Tablet) 50 mg PO BID [facility]; Protocol Last Admin: 07/24/22 08:40 Dose: 50 mg Documented By: RUSSELL Morphine Sulfate (Morphine Sulfate 4 Mg/Ml Cartridge) 3 mg IVPUSH Q4H PRN; Protocol PRN Reason: Pain, Severe (Pain Scale 7-10) Ondansetron HCl (Ondansetron Hcl 4 Mg/2 Ml Vial) 4 mg IVPUSH Q8H PRN PRN Reason: Nausea and Vomiting Pharmacy Consult (Consult Rx Perform Med Rec) 1 each MISCELLANE ONCE PRN PRN Reason: Consult order Sodium Chloride (0.9 % Sodium Chloride Flush 3 Ml Syringe) [facility] Last Admin: 07/24/22 08:41 Dose: 3 ml Documented By: RUSSELL Labs 07/24/22 04:29 07/24/22 04:29 Labs: Laboratory Results - last 24 hr 07/23/22 07/23/22 07/24/22 16:36 20:43 00:34 MCV MCH MCHC RDW Plt Count MPV Absolute Nucleated RBC Nucleated RBC % (auto) Anion Gap Estim Creat Clear Calc Estimated GFR POC Glucose 202 H 198 H 147 H Random Glucose Calcium Magnesium Total Bilirubin Direct Bilirubin AST ALT Alkaline Phosphatase C-Reactive Protein Total Protein Albumin TSH 07/24/22 07/24/22 07/24/22 04:29 04:29 04:54 MCV 90.8 MCH 30.4 MCHC 33.5 RDW 15.9 Plt Count 207 D MPV 10.0 Absolute Nucleated RBC 0.000 Nucleated RBC % (auto) 0.0 Anion Gap 13 Estim Creat Clear Calc 78.5 Estimated GFR > 60 POC Glucose 136 H Random Glucose 134 H Calcium 8.4 Magnesium 1.9 Total Bilirubin 2.0 H Direct Bilirubin 1.1 H AST 31 ALT 101 H Alkaline Phosphatase 346 H C-Reactive Protein 7.87 H Total Protein 5.4 L Albumin 3.0 L TSH 3.27 07/24/22 07/24/22 07:58 11:56 MCV MCH MCHC RDW Plt Count MPV Absolute Nucleated RBC Nucleated RBC % (auto) Anion Gap Estim Creat Clear Calc Estimated GFR POC Glucose 167 H 286 H Random Glucose Calcium Magnesium Total Bilirubin Direct Bilirubin AST ALT Alkaline Phosphatase C-Reactive Protein Total Protein Albumin TSH Procedures Date of Service Date of Service: 07/24/22 Progress Note: A&P Assessment and plan (1) Gallstones: Status: Acute Assessment and Plan: As per incisions involved in care - patient likely to had sepsis from his gallbladder No other source of infection sepsis identified This is his 2nd admission I have been therefore asked to proceed with cholecystectomy The patient says he wants his gallbladder removed I had a long discussion with him and his daughter the technique of this procedure of laparoscopic cholecystectomy Explained the risks including but not limited to bleeding, infections, injury to other organs including bowel, liver, bile duct, bile leak, retained stones, as well as the benefits and alternatives The understand the possibility of the need for open cholecystectomy The understand that he presents with significant perioperative risks in view of comorbid conditions including new onset AFib, diabetes, overall frailty, chronic methotrexate use Discussed with GI as well - likely to have CBD obstruction; elevated bili on admission likely from sepsis; no CBD dilatation noted on CT scan; patient unable to have an MRI Patient scheduled for surgery tomorrow Time Spent With Patient Time: Total time managing care of this patient today ____ minutes. Quality Stroke Does the patient have a stroke diagnosis?: No VTE Prior VTE?: No VTE Risk Level:: Medical - moderate - high VTE Device Contraindication: N/A - Device Ordered VTE Drug Contraindication: Treatment Not Indicated
[2022-07-24 15:39] LABS: Glucose, Whole Blood 267 mg/dL (60-115)
[2022-07-24] MEDS: metroNIDAZOLE/NS 500 MG/100 ML PIGGYBACK IV (17:32)
[2022-07-24 21:00] LABS: Glucose, Whole Blood 184 mg/dL (60-115)
[2022-07-25] VITALS (7 sets, daily range): BP systolic 135–165; BP diastolic 60–79; PULSE 59–68; RESP 15–63; TEMP 36.1–37.4; O2SAT 92–96
--- NOTE | 2022-07-25 | ECG_ITS ---
Test Reason : af s/p amio Blood Pressure : / mmHG Vent. Rate : 066 BPM Atrial Rate : 066 BPM P-R Int : 152 ms QRS Dur : 080 ms QT Int : 410 ms P-R-T Axes : 050 036 029 degrees QTc Int : 429 ms Normal sinus rhythm Normal ECG When compared with ECG of 24-JUL-2022 11:07, Sinus rhythm has replaced Atrial flutter Vent. rate has decreased BY 53 BPM Referred By: Johanne Li Electronically Signed By:CHAZ KNAPP MD
[2022-07-25 01:10] LABS: Glucose, Whole Blood 172 mg/dL (60-115)
[2022-07-25] MEDS: Morphine Sulfate 4 MG/ML CARTRIDGE IVPUSH (02:47)
[2022-07-25] MEDS: metroNIDAZOLE/NS 500 MG/100 ML PIGGYBACK 100 MG IV ×3 (02:49→19:28)
[2022-07-25 06:53] LABS: Glucose, Whole Blood 138 mg/dL (60-115)
[2022-07-25 08:06] LABS: Glucose, Whole Blood 140 mg/dL (60-115)
[2022-07-25 09:09] LABS: Alanine Aminotransferase 69 U/L (0-40); Albumin Level 2.8 g/dL (3.5-5.0); Alkaline Phosphatase 331 U/L (39-117); Anion Gap 10 (12-20); Aspartate Amino Transferase 25 U/L (5-37); Bilirubin Total 1.5 mg/dL (0.0-1.0); Blood Urea Nitrogen 14 mg/dL (9-16); Calcium 8.2 mg/dL (8.4-10.2); Carbon Dioxide 25 mmol/L (22-29); Chloride 109 mmol/L (96-108); Creatinine Clr Calc Pharmacy 78.5; Estimated Glomerular Filt Rate > 60; Glucose Random 133 mg/dL (60-115); Potassium 3.8 mmol/L (3.3-5.1); Sodium 140 mmol/L (135-145); Total Protein 5.2 g/dL (6.5-8.0)
[2022-07-25] MEDS: Metoprolol Tartrate 50 MG TABLET PO ×2 (09:44→20:53)
[2022-07-25] MEDS: 0.9 % Sodium Chloride Flush 3 ML SYRINGE IVFLUSH ×2 (09:45→17:30)
--- NOTE | 2022-07-25 10:27 | P.PNIM_ITS ---
Subjective Subjective Date of Service: 07/25/22 Interval History: converted from AF to NSR yesterday around 15:00 c/o arthritis pain but no chest pain or dyspnea no N/V or abd pain Review of Systems Review of Systems: Yes all other systems are reviewed and are negative Physical Exam Vital Signs: Vital Signs: Last Vital Signs Temp 99.4 F 07/25/22 07:44 Pulse 68 07/25/22 07:44 Resp 20 07/25/22 07:44 BP 165/79 H 07/25/22 07:44 Pulse Ox 93 07/25/22 07:44 O2 Del Method Room Air 07/25/22 07:44 O2 Flow Rate 2 07/22/22 11:42 BMI result Body Mass Index 25.1 Gen: in no acute distress HEENT: sclera anicteric, moist mucus membranes Neck: supple Lungs: clear to auscultation bilaterally Heart: regular, no murmurs Abd: soft, non-tender, non-distended, cholecystostomy tube Ext: no edema Skin: warm/well-perfused Neuro: alert and oriented x3, no focal findings Psych: appropriate affect Objective Data Active Medications Acetaminophen (Acetaminophen 325 Mg Tablet) 650 mg PO Q6H PRN PRN Reason: Pain, Mild (Pain Scale 1-3) Enoxaparin Sodium (Enoxaparin Sodium 80 Mg/0.8 Ml Syringe) 80 mg SUBCUT Q12H [facility] Last Admin: 07/25/22 09:49 Dose: Not Given Documented By: LESLIE Non-Admin Reason: Patient Refused Glucose (Glucose Gel 15 Gm Gel..Gram.) 15 gm PO Q15M PRN; Protocol PRN Reason: per Hypoglycemia Standing Ord. Last Admin: 07/20/22 06:03 Dose: 15 gm Documented By: RANDY Dextrose (D10) 250 mls @ 750 mls/hr IV Q15M PRN; Protocol PRN Reason: per Hypoglycemia Standing Ord. Last Infusion: 07/21/22 00:15 Dose: 0 mls/hr Documented By: ISAIAH Ceftriaxone Sodium 1 gm/ (Sodium Chloride) 50 mls @ 100 mls/hr IV Q24H [facility] Last Infusion: 07/24/22 14:08 Dose: 0 mls/hr Documented By: RUSSELL Metronidazole (Flagyl) 500 mg in 100 mls @ 100 mls/hr IV Q8H [facility] Last Infusion: 07/25/22 03:57 Dose: 0 mls/hr Documented By: ZOEY Amiodarone HCl 900 mg/ Sodium (Chloride) 518 mls @ 34.533 mls/hr IVCONT .Q15H1M [facility]; Protocol Last Admin: 07/25/22 02:46 Dose: Not Given Documented By: ZOEY Non-Admin Reason: IV Running Cefotetan Disodium 2 gm/ (Sodium Chloride) 50 mls @ 100 mls/hr IV PREOP ONE Stop: 07/25/22 14:42 Insulin Human Lispro (Insulin Lispro 100 Unit/Ml 3 Ml Vial) 0 unit SUBCUT Q6H [facility]; Protocol Last Admin: 07/25/22 07:58 Dose: Not Given Documented By: LESLIE Non-Admin Reason: No Insulin Coverage Lorazepam (Lorazepam 0.5 Mg Tablet) 0.5 mg PO Q12H PRN PRN Reason: Anxiety Melatonin (Melatonin 3 Mg Tablet) 6 mg PO BEDTIME PRN PRN Reason: Insomnia Metoprolol Tartrate (Metoprolol Tartrate 50 Mg Tablet) 50 mg PO BID [facility]; Protocol Last Admin: 07/25/22 09:44 Dose: 50 mg Documented By: LESLIE Ondansetron HCl (Ondansetron Hcl 4 Mg/2 Ml Vial) 4 mg IVPUSH Q8H PRN PRN Reason: Nausea and Vomiting Pharmacy Consult (Consult Rx Perform Med Rec) 1 each MISCELLANE ONCE PRN PRN Reason: Consult order Sodium Chloride (0.9 % Sodium Chloride Flush 3 Ml Syringe) 3 ml IVFLUSH QSHIFT [facility] Last Admin: 07/25/22 09:45 Dose: 3 ml Documented By: LESLIE Labs 07/24/22 04:29 07/25/22 08:39 Labs: Laboratory Results - last 24 hr 07/24/22 07/24/22 07/24/22 04:29 11:56 15:28 Anion Gap Estim Creat Clear Calc Estimated GFR POC Glucose 286 H 267 H Random Glucose Calcium Magnesium 1.9 Total Bilirubin AST ALT Alkaline Phosphatase Total Protein Albumin TSH 3.27 07/24/22 07/25/22 07/25/22 19:32 01:05 06:43 Anion Gap Estim Creat Clear Calc Estimated GFR POC Glucose 184 H 172 H 138 H Random Glucose Calcium Magnesium Total Bilirubin AST ALT Alkaline Phosphatase Total Protein Albumin TSH 07/25/22 07/25/22 07:56 08:39 Anion Gap 10 L Estim Creat Clear Calc 78.5 Estimated GFR > 60 POC Glucose 140 H Random Glucose 133 H Calcium 8.2 L Magnesium Total Bilirubin 1.5 H AST 25 ALT 69 H Alkaline Phosphatase 331 H Total Protein 5.2 L Albumin 2.8 L TSH Microbiology Microbiology Results: Microbiology 07/19/22 15:05 Blood Culture - Final Blood - Venous No growth after 5 days. 07/19/22 15:05 Blood Culture - Final Blood - Venous No growth after 5 days. 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, history of cholecystitis managed with cholecystostomy tube placed 04/30/22 brought in to [facility] by EMS due to generalized weakness admitted for severe sepsis due to cholecystitis # paroxysmal AF with RVR - converted on amiodarone drip - continue metoprolol - therapeutic enoxaparin for AC, switch to apixaban postop - Cardiology following # severe sepsis due to acute cholecystitis - sepsis resolved, CT A/P +abd US consistent with acute cholecytiis - pip-iman 07/19-07/20, then ceftriaxone/metronidazole 07/20-present due to prior culture showing E coli, Klebseilla, and Bacteroides - MRCP not done due to [employer] shunt - HIDA scan: nonvisualized GB, could be due to cystic duct obstruction [not due to the cholecystostomy tube as it is not even in the gallbladder] - per Surgery, high risk for surgery and would not operate at this time; in addition, abdomen soft/non-tender. 2nd opinion requested from Dr Mariee as Dr Martinez and I feel strongly that definitive source control is indicated given his 2nd episode of biliary sepsis - plan OR possibly tomorrow # DM2, A1c 7.9 - correction-dose lispro # psoriatic arthritis - hold etanercept + methotrexate # HTN - continue metoprolol; holding amlodipine, furosemide, and lisinopril due to sepsis # VTE ppx: LMWH # dispo: TBD In my clinical judgment, the patient requires continued inpatient hospitalization for the following reasons: IV ABX, operative intervention Time Spent With Patient Time: Total time managing care of this patient today __35__ minutes. Quality Stroke Does the patient have a stroke diagnosis?: No VTE Prior VTE?: No VTE Risk Level:: Medical - moderate - high VTE Device Contraindication: N/A - Device Ordered VTE Drug Contraindication: Treatment Not Indicated
[2022-07-25 12:00] LABS: Glucose, Whole Blood 143 mg/dL (60-115)
--- NOTE | 2022-07-25 12:42 | P.PNCA_ITS ---
Subjective Subjective Date of Service: 07/25/22 Principal diagnosis: Paroxysmal atrial flutter Interval history: Patient currently sinus rhythm on IV amiodarone drip. No new cardiac complaints. His surgery has been postponed due to family request. He appears mildly confused. Denies any other cardiac complaints. Review of Systems Review of Systems Yes all other systems are reviewed and are negative Physical Exam Vital Signs: Last Vital Signs Temp 99.1 F 07/25/22 11:49 Pulse 67 07/25/22 11:49 Resp 20 07/25/22 11:49 BP 162/73 H 07/25/22 11:49 Pulse Ox 96 07/25/22 11:49 O2 Del Method Room Air 07/25/22 11:49 O2 Flow Rate 2 07/22/22 11:42 BMI result Body Mass Index 25.1 Const General: cooperative, comfortable, no acute distress, alert and awake Nutritional Appearance: average body habitus Orientation/consciousness: patient oriented x3 Neck Neck: Yes trachea midline, Yes supple and Yes no JVD Resp Effort & Inspection: normal respiratory effort Auscultation: clear to auscultation bilaterally Cardio Rate: regular rate Rhythm: regular rhythm Heart sounds: S1 normal heart sound present, S2 normal heart sound present, no click, no gallops, no murmurs and no rubs Skin General skin exam: ecchymosis Neuro General: patient oriented x3 and no focal motor deficits Extrem General: Yes no clubbing, cyanosis or edema Objective Labs and Meds 07/24/22 04:29 07/25/22 08:39 Lab results: Laboratory Results - last 24 hr 07/24/22 07/24/22 07/25/22 15:28 19:32 01:05 Sodium Potassium Chloride Carbon Dioxide Anion Gap BUN Creatinine Estim Creat Clear Calc Estimated GFR POC Glucose 267 H 184 H 172 H Random Glucose Calcium Total Bilirubin AST ALT Alkaline Phosphatase Total Protein Albumin 07/25/22 07/25/22 07/25/22 06:43 07:56 08:39 Sodium 140 Potassium 3.8 Chloride 109 H Carbon Dioxide 25 Anion Gap 10 L BUN 14 Creatinine 0.80 Estim Creat Clear Calc 78.5 Estimated GFR > 60 POC Glucose 138 H 140 H Random Glucose 133 H Calcium 8.2 L Total Bilirubin 1.5 H AST 25 ALT 69 H Alkaline Phosphatase 331 H Total Protein 5.2 L Albumin 2.8 L 07/25/22 11:47 Sodium Potassium Chloride Carbon Dioxide Anion Gap BUN Creatinine Estim Creat Clear Calc Estimated GFR POC Glucose 143 H Random Glucose Calcium Total Bilirubin AST ALT Alkaline Phosphatase Total Protein Albumin Progress Note: A&P Assessment and plan (1) Paroxysmal atrial flutter: Status: Acute Assessment and Plan: Paroxysmal atrial flutter in this elderly gentleman with no cardiac symptoms at this point time, suppressed on IV amiodarone. Continue IV amiodarone daily goes to surgery. Consider start him on anticoagulation with IV heparin given that he is delayed in the surgery reduced thromboembolic complication. Resume oral/IV anticoagulation as soon as possible once surgically cleared. Eventually will switch him to oral amiodarone to suppress his atrial arrhythmias and hopefully over time given that this is medically/surgically induced will not require long- term amiodarone therapy. At this point time will sign of the case. Thank you for allowing me to partake in his care Time Spent With Patient Time: Total time managing care of this patient today ____ minutes. Progress Note: Quality Stroke Does the patient have a stroke diagnosis?: No Procedures Date of Service Date of Service: 07/25/22
[2022-07-25] MEDS: cefTRIAXone sodium 1 GM in 0.9 % Sodium Chloride 50 ML IV (13:10)
--- NOTE | 2022-07-25 14:25 | MHC.CM.PN ---
EMR REVIEWED, PER CARDIOLOGY PT'S FAMILY REQUESTED SURGERY BE POSTPONED, AMNIODERONE DRIP COMPLETED AND PT WILL LIKELY CHANGE TO [facility] TOMORROW AND D/C BY SATURDAYANGELA UPDATED VIA [employer].
--- NOTE | 2022-07-25 14:53 | P.PNGS_ITS ---
Subjective Subjective Date of Service: 07/26/22 Interval history: Denies abdominal pain Good oral intake No events reported overnight Physical Exam Vital Signs: Vital Signs: Last Vital Signs Temp 99.1 F 07/25/22 11:49 Pulse 67 07/25/22 11:49 Resp 20 07/25/22 11:49 BP 162/73 H 07/25/22 11:49 Pulse Ox 96 07/25/22 11:49 O2 Del Method Room Air 07/25/22 11:49 O2 Flow Rate 2 07/22/22 11:42 BMI result Body Mass Index 25.1 Const: General: comfortable and no acute distress Resp: Effort & Inspection: normal respiratory effort Cardio: Rate: regular rate GI: Palpation (GI): Soft to palpation, not firm and nontender Objective Data Active Medications Acetaminophen (Acetaminophen 325 Mg Tablet) 650 mg PO Q6H PRN PRN Reason: Pain, Mild (Pain Scale 1-3) Enoxaparin Sodium (Enoxaparin Sodium 80 Mg/0.8 Ml Syringe) 80 mg SUBCUT Q12H [facility] Last Admin: 07/25/22 09:49 Dose: Not Given Documented By: LESLIE Non-Admin Reason: Patient Refused Glucose (Glucose Gel 15 Gm Gel..Gram.) 15 gm PO Q15M PRN; Protocol PRN Reason: per Hypoglycemia Standing Ord. Last Admin: 07/20/22 06:03 Dose: 15 gm Documented By: RANDY Dextrose (D10) 250 mls @ 750 mls/hr IV Q15M PRN; Protocol PRN Reason: per Hypoglycemia Standing Ord. Last Infusion: 07/21/22 00:15 Dose: 0 mls/hr Documented By: ISAIAH Ceftriaxone Sodium 1 gm/ (Sodium Chloride) 50 mls @ 100 mls/hr IV Q24H [facility] Last Infusion: 07/25/22 13:48 Dose: 0 mls/hr Documented By: LESLIE Metronidazole (Flagyl) 500 mg in 100 mls @ 100 mls/hr IV Q8H [facility] Last Infusion: 07/25/22 13:09 Dose: 0 mls/hr Documented By: LESLIE Amiodarone HCl 900 mg/ Sodium (Chloride) 518 mls @ 34.533 mls/hr IVCONT .Q15H1M [facility]; Protocol Last Infusion: 07/25/22 12:37 Dose: 0 mg/min, 0 mls/hr Documented By: LESLIE Insulin Human Lispro (Insulin Lispro 100 Unit/Ml 3 Ml Vial) 0 unit SUBCUT Q6H [facility]; Protocol Last Admin: 07/25/22 12:14 Dose: Not Given Documented By: LESLIE Non-Admin Reason: No Insulin Coverage Lorazepam (Lorazepam 0.5 Mg Tablet) 0.5 mg PO Q12H PRN PRN Reason: Anxiety Melatonin (Melatonin 3 Mg Tablet) 6 mg PO BEDTIME PRN PRN Reason: Insomnia Metoprolol Tartrate (Metoprolol Tartrate 50 Mg Tablet) 50 mg PO BID [facility]; Protocol Last Admin: 07/25/22 09:44 Dose: 50 mg Documented By: LESLIE Ondansetron HCl (Ondansetron Hcl 4 Mg/2 Ml Vial) 4 mg IVPUSH Q8H PRN PRN Reason: Nausea and Vomiting Oxycodone HCl (Oxycodone Hcl Immed Release 5 Mg Tablet) 5 mg PO Q4H PRN PRN Reason: severe pain Pharmacy Consult (Consult Rx Perform Med Rec) 1 each MISCELLANE ONCE PRN PRN Reason: Consult order Sodium Chloride (0.9 % Sodium Chloride Flush 3 Ml Syringe) [facility] Last Admin: 07/25/22 09:45 Dose: 3 ml Documented By: LESLIE Labs 07/24/22 04:29 07/25/22 08:39 Labs: Laboratory Results - last 24 hr 07/24/22 07/24/22 07/25/22 15:28 19:32 01:05 Anion Gap Estim Creat Clear Calc Estimated GFR POC Glucose 267 H 184 H 172 H Random Glucose Calcium Total Bilirubin AST ALT Alkaline Phosphatase Total Protein Albumin 07/25/22 07/25/22 07/25/22 06:43 07:56 08:39 Anion Gap 10 L Estim Creat Clear Calc 78.5 Estimated GFR > 60 POC Glucose 138 H 140 H Random Glucose 133 H Calcium 8.2 L Total Bilirubin 1.5 H AST 25 ALT 69 H Alkaline Phosphatase 331 H Total Protein 5.2 L Albumin 2.8 L 07/25/22 11:47 Anion Gap Estim Creat Clear Calc Estimated GFR POC Glucose 143 H Random Glucose Calcium Total Bilirubin AST ALT Alkaline Phosphatase Total Protein Albumin Microbiology Microbiology Results: Microbiology 07/19/22 15:05 Blood Culture - Final Blood - Venous No growth after 5 days. 07/19/22 15:05 Blood Culture - Final Blood - Venous No growth after 5 days. Procedures Date of Service Date of Service: 07/25/22 Progress Note: A&P Assessment and plan (1) Gallstones: Status: Acute Assessment and Plan: Multiple discussions with his care team done Consensus is that his initial presentation of sepsis is likely secondary to his gallbladder disease He does not have symptoms at this time However, this is his 2nd admission for sepsis He says that after discussing this with his other doctors, he wants to proceed with cholecystectomy He says he understands the technique of laparoscopic cholecystectomy and possible conversion to open He is aware of the risks of the procedure including her to other intra-abdominal organs, MA, strokes respiratory failure I had discussed the above with his daughter Belen The patient was actually scheduled to have the gallbladder surgery to day but his daughter Belen had as this to be postponed I have rescheduled him for tomorrow Time Spent With Patient Time: Total time managing care of this patient today ____ minutes. Quality Stroke Does the patient have a stroke diagnosis?: No VTE Prior VTE?: No VTE Risk Level:: Medical - moderate - high VTE Device Contraindication: N/A - Device Ordered VTE Drug Contraindication: Treatment Not Indicated
[2022-07-25] MEDS: oxyCODONE HCl Immed Release 5 MG TABLET PO ×2 (15:24→19:28)
[2022-07-25 16:39] LABS: Glucose, Whole Blood 247 mg/dL (60-115)
[2022-07-25] MEDS: Amiodarone HCL 900 MG in 0.9 % Sodium Chloride 500 ML 17.27 MG IVCONT (17:30)
[2022-07-25] MEDS: Insulin Lispro 100 UNIT/ML 3 ML VIAL SUBCUT (17:30)
--- NOTE | 2022-07-25 19:43 | PC.NURSE ---
Pt. started on amiod. drip 07/24 at 11:39 per protocol at 1mg/hr for 6 hrs. Then switched to 0.5mg/hr for 18 hrs. Drip stopped on 07/25 at 12:37. Per protocol Pt had met the dose needed, notfied. Md added additional dose at 0.5mg/hr for 24 hrs.
[2022-07-25 20:42] LABS: Glucose, Whole Blood 127 mg/dL (60-115)
[2022-07-25] MEDS: Enoxaparin Sodium 80 MG/0.8 ML SYRINGE SUBCUT (20:53)
[2022-07-26] VITALS (8 sets, daily range): BP systolic 116–161; BP diastolic 52–74; PULSE 61–124; RESP 14–20; TEMP 36.4–37.3; O2SAT 92–95
[2022-07-26] MEDS: oxyCODONE HCl Immed Release 5 MG TABLET PO ×3 (00:13→19:39)
[2022-07-26 00:40] LABS: Glucose, Whole Blood 110 mg/dL (60-115)
[2022-07-26] MEDS: metroNIDAZOLE/NS 500 MG/100 ML PIGGYBACK 100 MG IV ×2 (02:48→18:26)
[2022-07-26 06:07] LABS: Glucose, Whole Blood 165 mg/dL (60-115)
[2022-07-26 07:04] LABS: Alanine Aminotransferase 58 U/L (0-40); Albumin Level 2.8 g/dL (3.5-5.0); Alkaline Phosphatase 298 U/L (39-117); Anion Gap 13 (12-20); Aspartate Amino Transferase 21 U/L (5-37); Bilirubin Total 1.3 mg/dL (0.0-1.0); Blood Urea Nitrogen 13 mg/dL (9-16); Calcium 8.2 mg/dL (8.4-10.2); Carbon Dioxide 21 mmol/L (22-29); Chloride 107 mmol/L (96-108); Creatinine Clr Calc Pharmacy 80.5; Estimated Glomerular Filt Rate > 60; Glucose Random 148 mg/dL (60-115); Potassium 3.9 mmol/L (3.3-5.1); Sodium 137 mmol/L (135-145); Total Protein 5.4 g/dL (6.5-8.0)
[2022-07-26 08:07] LABS: Glucose, Whole Blood 160 mg/dL (60-115)
[2022-07-26] MEDS: Metoprolol Tartrate 50 MG TABLET PO ×2 (08:45→19:39)
--- NOTE | 2022-07-26 09:57 | PM.PNCARD ---
Subjective Subjective Date of Service: 07/26/22 Principal diagnosis: Paroxysmal atrial flutter Interval history: Patient converted to atrial flutter with rapid ventricular response this morning after he found out that he was going to surgery earlier than expected. He was low concerned about it. He denies any symptoms related to it. Denies any palpitations, shortness of breath, chest pain. Denies lightheadedness. Blood pressure is stable. Review of Systems Review of Systems Yes all other systems are reviewed and are negative Physical Exam Vital Signs: Last Vital Signs Temp 98.4 F 07/26/22 08:00 Pulse 76 07/26/22 08:00 Resp 18 07/26/22 08:00 BP 161/69 H 07/26/22 08:00 Pulse Ox 95 07/26/22 08:00 O2 Del Method Room Air 07/26/22 08:00 O2 Flow Rate 2 07/22/22 11:42 BMI result Body Mass Index 25.1 Const General: cooperative, comfortable, no acute distress, alert, awake and anxious Nutritional Appearance: average body habitus Orientation/consciousness: patient oriented x3 Neck Neck: Yes trachea midline, Yes supple and Yes no JVD Resp Effort & Inspection: normal respiratory effort Auscultation: clear to auscultation bilaterally Cardio Rate: tachycardic Rhythm: abnormal rhythm irregularly irregular Heart sounds: S1 normal heart sound present, S2 normal heart sound present, no click, no gallops, no murmurs and no rubs Skin General skin exam: ecchymosis Neuro General: patient oriented x3 and no focal motor deficits Extrem General: Yes no clubbing, cyanosis or edema Objective Labs and Meds 07/24/22 04:29 07/26/22 05:57 Lab results: Laboratory Results - last 24 hr 07/25/22 07/25/22 07/25/22 11:47 16:33 20:25 Sodium Potassium Chloride Carbon Dioxide Anion Gap BUN Creatinine Estim Creat Clear Calc Estimated GFR POC Glucose 143 H 247 H 127 H Random Glucose Calcium Total Bilirubin AST ALT Alkaline Phosphatase Total Protein Albumin Blood Type Antibody Screen 07/26/22 07/26/22 07/26/22 00:27 05:56 05:57 Sodium 137 Potassium 3.9 Chloride 107 Carbon Dioxide 21 L Anion Gap 13 BUN 13 Creatinine 0.78 Estim Creat Clear Calc 80.5 Estimated GFR > 60 POC Glucose 110 165 H Random Glucose 148 H Calcium 8.2 L Total Bilirubin 1.3 H AST 21 ALT 58 H Alkaline Phosphatase 298 H Total Protein 5.4 L Albumin 2.8 L Blood Type Antibody Screen 07/26/22 07/26/22 05:57 07:40 Sodium Potassium Chloride Carbon Dioxide Anion Gap BUN Creatinine Estim Creat Clear Calc Estimated GFR POC Glucose 160 H Random Glucose Calcium Total Bilirubin AST ALT Alkaline Phosphatase Total Protein Albumin Blood Type O Positive Antibody Screen NEGATIVE Progress Note: A&P Assessment and plan (1) Atrial flutter with rapid ventricular response: Status: Acute Assessment and Plan: Atrial flutter with rapid ventricular response related to excitement, patient was doing well on amiodarone drip. Will give him another does off IV amiodarone 150 mg. He has no symptoms or signs of cardiac decompensation. I think he can still go through with noncardiac surgery with intermediate risk for perioperative cardiovascular morbidity mortality. Through the surgery can use IV esmolol to control his heart rate. Continue obviously monitor hemodynamics closely through the surgery. Post surgery if he remains in atrial flutter with rapid ventricular response and is difficult control may require MEENA guided cardioversion once cleared for anticoagulation therapy by surgery. I think his noncardiac surgery is going to help him overall medically much more than the risk of surgery at this point in time. Will continue to follow with you Time Spent With Patient Time: Total time managing care of this patient today ____ minutes. Progress Note: Quality Stroke Does the patient have a stroke diagnosis?: No Procedures Date of Service Date of Service: 07/26/22
[2022-07-26] MEDS: Amiodarone/Dextrose 150 MG/100 ML PLAST..BAG 600 MG IV (10:19)
--- NOTE | 2022-07-26 11:05 | P.CONAN_ITS ---
HPI - Anesthesia Eval Consult details Narrative: for lap cholecystectomy PMFSH Active Problems Active Problems: All Active Problems (Updated 07/25/22 @ 12:44 by Vince Valadez MD) Paroxysmal atrial flutter (Acute) Atrial flutter with rapid ventricular response (Acute) Gallstones (Acute) Abnormal LFTs (Acute) Acute alteration in mental status (Acute) Unable to ambulate (Acute) Hepatitis (Acute) Poorly controlled type 2 diabetes mellitus (Acute) Frailty syndrome in geriatric patient (Acute) Acute calculous cholecystitis (Acute) Anticoagulated (Acute) Psoriatic arthritis (Acute) Cardiomegaly (Acute) Diabetes (Acute) 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, joint terminal attack controller, current use (Acute) New onset a-fib (Acute) Normal pressure hydrocephalus (Acute) Obstructive sleep apnea (Acute) Protein malnutrition (Acute) Immunization counseling (Acute) Psoriasis (Acute) Joint pain in fingers of right hand (Acute) Past Medical History Medical History Abnormal LFTs ADHD Back pain Cardiomegaly Diabetes Diabetic retinopathy Encounter for screening for other viral diseases Gallstones Gout Hypertension Immunosuppression due to drug therapy 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, joint terminal attack controller, current use New onset a-fib Normal pressure hydrocephalus Obstructive sleep apnea Paroxysmal atrial fibrillation Protein malnutrition Psoriasis Psoriatic arthritis Restless leg syndrome Screening-pulmonary TB Family History Family history of problems with anesthesia: No Surgical History History of Problems with Anesthesia: No Social History Social History Household Members: None Household Members Other:: lives alone Housing: House Do you presently have visiting nurse or other home services: No Alcohol intake: current Alcohol intake frequency: former alcohol drinker Patient Tobacco Use Status: Never used Tobacco e-Cigarette/Vaping Use: Never Used service: No Current occupational status: retired Current occupation: [employer] Allergies Allergy/AdvReac Type Severity Reaction Status Date / Time famotidine [From Pepcid] Allergy Intermediate Hallucinati Verified 06/18/22 08:39 ons Active Medications: Current Medications Acetaminophen (Acetaminophen 325 Mg Tablet) 650 mg PO Q6H PRN PRN Reason: Pain, Mild (Pain Scale 1-3) Enoxaparin Sodium (Enoxaparin Sodium 80 Mg/0.8 Ml Syringe) 80 mg SUBCUT Q12H [facility] Last Admin: 07/25/22 20:53 Dose: 80 mg Glucose (Glucose Gel 15 Gm Gel..Gram.) 15 gm PO Q15M PRN; Protocol PRN Reason: per Hypoglycemia Standing Ord. Last Admin: 07/20/22 06:03 Dose: 15 gm Dextrose (D10) 250 mls @ 750 mls/hr IV Q15M PRN; Protocol PRN Reason: per Hypoglycemia Standing Ord. Last Infusion: 07/21/22 00:15 Dose: Infused Ceftriaxone Sodium 1 gm/ (Sodium Chloride) 50 mls @ 100 mls/hr IV Q24H [facility] Last Infusion: 07/25/22 13:48 Dose: Infused Metronidazole (Flagyl) 500 mg in 100 mls @ 100 mls/hr IV Q8H [facility] Last Infusion: 07/26/22 03:52 Dose: Infused Amiodarone HCl 900 mg/ Sodium (Chloride) 518 mls @ 17.267 mls/hr IVCONT .Q24H [facility] Last Admin: 07/25/22 17:30 Dose: 0.5 mg/min, 17.27 mls/hr Insulin Human Lispro (Insulin Lispro 100 Unit/Ml 3 Ml Vial) 0 unit SUBCUT Q6H [facility]; Protocol Last Admin: 07/26/22 06:41 Dose: Not Given Lorazepam (Lorazepam 0.5 Mg Tablet) 0.5 mg PO Q12H PRN PRN Reason: Anxiety Melatonin (Melatonin 3 Mg Tablet) 6 mg PO BEDTIME PRN PRN Reason: Insomnia Metoprolol Tartrate (Metoprolol Tartrate 50 Mg Tablet) 50 mg PO BID [facility]; Protocol Last Admin: 07/26/22 08:45 Dose: 50 mg Ondansetron HCl (Ondansetron Hcl 4 Mg/2 Ml Vial) 4 mg IVPUSH Q8H PRN PRN Reason: Nausea and Vomiting Oxycodone HCl (Oxycodone Hcl Immed Release 5 Mg Tablet) 5 mg PO Q4H PRN PRN Reason: severe pain Last Admin: 07/26/22 04:24 Dose: 5 mg Pharmacy Consult (Consult Rx Perform Med Rec) 1 each MISCELLANE ONCE PRN PRN Reason: Consult order Sodium Chloride (0.9 % Sodium Chloride Flush 3 Ml Syringe) 3 ml IVFLUSH QSHIFT [facility] Last Admin: 07/26/22 08:37 Dose: Not Given Home Medications Medication Instructions Recorded Confirmed Last Taken Type amlodipine 10 mg tablet 10 mg PO DAILY 11/22/21 07/19/22 04/25/22 History atorvastatin 20 mg tablet 20 mg PO DAILY 11/22/21 07/19/22 04/25/22 History cholecalciferol (vitamin D3) 125 125 mcg PO DAILY 11/22/21 07/19/22 04/25/22 History mcg (5,000 unit) capsule furosemide 40 mg tablet 40 mg PO DAILY 11/22/21 07/19/22 04/25/22 History metoprolol tartrate 50 mg tablet 50 mg PO BID 11/22/21 07/19/22 04/25/22 History insulin glargine 100 unit/mL (3 45 unit subcut BEDTIME 04/28/22 07/19/22 04/25/22 History mL) subcutaneous pen (Lantus Solostar U-100 Insulin) insulin lispro 100 unit/mL 0 sliding scale dose subcut TID 06/18/22 07/19/22 Unknown History subcutaneous pen (Humalog KwikPen (U-100) Insulin) lisinopril 5 mg tablet 5 mg PO DAILY 06/18/22 07/19/22 Unknown History metformin 500 mg tablet,extended 1,000 mg PO BID 06/18/22 07/19/22 Unknown History release 24 hr methotrexate sodium 2.5 mg tablet 20 mg PO QWEEK 06/18/22 07/19/22 Unknown H istory dapagliflozin 5 mg tablet ([facility]) 5 mg PO DAILY 07/19/22 07/19/22 Unknown History glipizide 10 mg tablet, extended 10 mg PO BID 07/19/22 07/19/22 Unknown History release 24 hr Exam Exam Date and Time: July 26, 2022 1105 Height,Weight and Vital Signs: Height 5 ft 9 in Weight 77.111 kg Last Vital Signs Temp 99.1 F 07/26/22 10:51 Pulse 124 H 07/26/22 10:51 Resp 18 07/26/22 10:51 BP 143/74 H 07/26/22 10:51 Pulse Ox 94 07/26/22 10:51 O2 Del Method Room Air 07/26/22 10:51 O2 Flow Rate 2 07/22/22 11:42 Pertinent Lab Results Pertinent Lab Results: Laboratory Tests 07/19/22 07/19/22 07/19/22 14:49 15:05 15:05 WBC 17.2 H RBC 4.61 Hgb 14.2 Hct 43.0 MCV 93.3 MCH 30.8 MCHC 33.0 RDW 15.4 Plt Count 220 MPV 9.6 Immature Gran % (Auto) 0.6 H Neut % (Auto) 89.9 H Lymph % (Auto) 1.9 L Reagan % (Auto) 7.4 Eos % (Auto) 0.0 Baso % (Auto) 0.2 Lymph # (Auto) 0.3 L Reagan # (Auto) 1.3 H Eos # (Auto) 0.0 Baso # (Auto) 0.0 Abs Immat Gran (auto) 0.10 H Absolute Neuts (auto) 15.5 H Absolute Nucleated RBC 0.000 Nucleated RBC % (auto) 0.0 PT INR Sodium 139 Potassium 4.1 Chloride 102 Carbon Dioxide 26 Anion Gap 15 BUN 23 H Creatinine 1.30 Estim Creat Clear Calc 48.3 Estimated GFR 54 POC Glucose 163 H Random Glucose 180 H Estimat Average Glucose Hemoglobin A1c % Lactic Acid Lactic Acid F/U @ 2Hr Lactic Acid F/U @ 4Hr Calcium 9.9 D Magnesium 1.7 Total Bilirubin 2.3 H Direct Bilirubin 1.5 H AST 553 H ALT 462 H Alkaline Phosphatase 240 H Ammonia Troponin I High Sens C-Reactive Protein B-Natriuretic Peptide Total Protein 6.7 Albumin 3.9 Prealbumin Lipase 29 TSH Urine Color Urine Appearance Urine pH Ur Specific [place] Urine Protein Urine Glucose (UA) Urine Ketones Urine Blood Urine Nitrite Ur Leukocyte Esterase Urine RBC Urine WBC Ur Squamous Epith Cells Urine Bacteria Hyaline Casts Ethyl Alcohol < 10 COVID-19 ([facility]) COVID-19 Clin Com Blood Type Antibody Screen 07/19/22 07/19/22 07/19/22 15:05 15:05 15:05 WBC RBC Hgb Hct MCV MCH MCHC RDW Plt Count MPV Immature Gran % (Auto) Neut % (Auto) Lymph % (Auto) Reagan % (Auto) Eos % (Auto) Baso % (Auto) Lymph # (Auto) Reagan # (Auto) Eos # (Auto) Baso # (Auto) Abs Immat Gran (auto) Absolute Neuts (auto) Absolute Nucleated RBC Nucleated RBC % (auto) PT INR Sodium Potassium Chloride Carbon Dioxide Anion Gap BUN Creatinine Estim Creat Clear Calc Estimated GFR POC Glucose Random Glucose Estimat Average Glucose Hemoglobin A1c % Lactic Acid 3.7 H* Lactic Acid F/U @ 2Hr Lactic Acid F/U @ 4Hr Calcium Magnesium Total Bilirubin Direct Bilirubin AST ALT Alkaline Phosphatase Ammonia Troponin I High Sens 4.0 D C-Reactive Protein B-Natriuretic Peptide 58 Total Protein Albumin Prealbumin Lipase TSH Urine Color Urine Appearance Urine pH Ur Specific [place] Urine Protein Urine Glucose (UA) Urine Ketones Urine Blood Urine Nitrite Ur Leukocyte Esterase Urine RBC Urine WBC Ur Squamous Epith Cells Urine Bacteria Hyaline Casts Ethyl Alcohol COVID-19 ([facility]) COVID-19 Clin Com Blood Type Antibody Screen 07/19/22 07/19/22 07/19/22 15:05 15:05 15:05 WBC RBC Hgb Hct MCV MCH MCHC RDW Plt Count MPV Immature Gran % (Auto) Neut % (Auto) Lymph % (Auto) Reagan % (Auto) Eos % (Auto) Baso % (Auto) Lymph # (Auto) Reagan # (Auto) Eos # (Auto) Baso # (Auto) Abs Immat Gran (auto) Absolute Neuts (auto) Absolute Nucleated RBC Nucleated RBC % (auto) PT INR Sodium Potassium Chloride Carbon Dioxide Anion Gap BUN Creatinine Estim Creat Clear Calc Estimated GFR POC Glucose Random Glucose Estimat Average Glucose Hemoglobin A1c % Lactic Acid Lactic Acid F/U @ 2Hr Lactic Acid F/U @ 4Hr Calcium Magnesium Total Bilirubin Direct Bilirubin AST ALT Alkaline Phosphatase Ammonia 37 Troponin I High Sens C-Reactive Protein B-Natriuretic Peptide Total Protein Albumin Prealbumin Lipase TSH Urine Color Urine Appearance Urine pH Ur Specific [place] Urine Protein Urine Glucose (UA) Urine Ketones Urine Blood Urine Nitrite Ur Leukocyte Esterase Urine RBC Urine WBC Ur Squamous Epith Cells Urine Bacteria Hyaline Casts Ethyl Alcohol COVID-19 ([facility]) Negative COVID-19 Clin Com See Note Blood Type O Positive Antibody Screen NEGATIVE 07/19/22 07/19/22 07/19/22 17:31 18:24 18:38 WBC RBC Hgb Hct MCV MCH MCHC RDW Plt Count MPV Immature Gran % (Auto) Neut % (Auto) Lymph % (Auto) Reagan % (Auto) Eos % (Auto) Baso % (Auto) Lymph # (Auto) Reagan # (Auto) Eos # (Auto) Baso # (Auto) Abs Immat Gran (auto) Absolute Neuts (auto) Absolute Nucleated RBC Nucleated RBC % (auto) PT INR Sodium Potassium Chloride Carbon Dioxide Anion Gap BUN Creatinine Estim Creat Clear Calc Estimated GFR POC Glucose 148 H Random Glucose Estimat Average Glucose Hemoglobin A1c % Lactic Acid Lactic Acid F/U @ 2Hr 3.0 H* Lactic Acid F/U @ 4Hr Calcium Magnesium Total Bilirubin Direct Bilirubin AST ALT Alkaline Phosphatase Ammonia Troponin I High Sens C-Reactive Protein B-Natriuretic Peptide Total Protein Albumin Prealbumin Lipase TSH Urine Color Yellow Urine Appearance Clear Urine pH 7.5 Ur Specific [place] >= 1.030 H Urine Protein Trace Urine Glucose (UA) >=1000 H Urine Ketones Negative Urine Blood Negative Urine Nitrite Negative Ur Leukocyte Esterase Negative Urine RBC 0-2 Urine WBC 0-5 Ur Squamous Epith Cells 0-2 Urine Bacteria None Seen Hyaline Casts 0-2 Ethyl Alcohol COVID-19 ([facility]) COVID-19 [employer] Blood Type Antibody Screen 07/19/22 07/19/22 07/19/22 20:02 21:03 21:16 WBC RBC Hgb Hct MCV MCH MCHC RDW Plt Count MPV Immature Gran % (Auto) Neut % (Auto) Lymph % (Auto) Reagan % (Auto) Eos % (Auto) Baso % (Auto) Lymph # (Auto) Reagan # (Auto) Eos # (Auto) Baso # (Auto) Abs Immat Gran (auto) Absolute Neuts (auto) Absolute Nucleated RBC Nucleated RBC % (auto) PT INR Sodium Potassium Chloride Carbon Dioxide Anion Gap BUN Creatinine Estim Creat Clear Calc Estimated GFR POC Glucose 130 H 138 H Random Glucose Estimat Average Glucose Hemoglobin A1c % Lactic Acid Lactic Acid F/U @ 2Hr Lactic Acid F/U @ 4Hr 2.2 H* Calcium Magnesium Total Bilirubin Direct Bilirubin AST ALT Alkaline Phosphatase Ammonia Troponin I High Sens C-Reactive Protein B-Natriuretic Peptide Total Protein Albumin Prealbumin Lipase TSH Urine Color Urine Appearance Urine pH Ur Specific [place] Urine Protein Urine Glucose (UA) Urine Ketones Urine Blood Urine Nitrite Ur Leukocyte Esterase Urine RBC Urine WBC Ur Squamous Epith Cells Urine Bacteria Hyaline Casts Ethyl Alcohol COVID-19 ([facility]) COVID-19 [employer] Blood Type Antibody Screen 07/20/22 07/20/22 07/20/22 00:01 05:19 05:19 WBC 13.5 H RBC 3.76 L Hgb 11.5 L Hct 34.5 L MCV 91.8 MCH 30.6 MCHC 33.3 RDW 15.6 Plt Count 161 D MPV 9.7 Immature Gran % (Auto) Neut % (Auto) Lymph % (Auto) Reagan % (Auto) Eos % (Auto) Baso % (Auto) Lymph # (Auto) Reagan # (Auto) Eos # (Auto) Baso # (Auto) Abs Immat Gran (auto) Absolute Neuts (auto) Absolute Nucleated RBC 0.000 Nucleated RBC % (auto) 0.0 PT INR Sodium 141 Potassium 3.7 Chloride 110 H Carbon Dioxide 24 Anion Gap 11 L BUN 18 H Creatinine 1.07 Estim Creat Clear Calc 58.7 Estimated GFR > 60 POC Glucose 116 H Random Glucose 72 Estimat Average Glucose Hemoglobin A1c % Lactic Acid Lactic Acid F/U @ 2Hr Lactic Acid F/U @ 4Hr Calcium 8.3 L D Magnesium Total Bilirubin 3.3 H Direct Bilirubin 2.3 H AST 254 H ALT 369 H Alkaline Phosphatase 144 H Ammonia Troponin I High Sens C-Reactive Protein B-Natriuretic Peptide Total Protein 5.1 L Albumin 3.0 L Prealbumin Lipase TSH Urine Color Urine Appearance Urine pH Ur Specific [place] Urine Protein Urine Glucose (UA) Urine Ketones Urine Blood Urine Nitrite Ur Leukocyte Esterase Urine RBC Urine WBC Ur Squamous Epith Cells Urine Bacteria Hyaline Casts Ethyl Alcohol COVID-19 ([facility]) COVID-19 Clin Com Blood Type Antibody Screen 07/20/22 07/20/22 07/20/22 05:44 06:21 06:42 WBC RBC Hgb Hct MCV MCH MCHC RDW Plt Count MPV Immature Gran % (Auto) Neut % (Auto) Lymph % (Auto) Reagan % (Auto) Eos % (Auto) Baso % (Auto) Lymph # (Auto) Reagan # (Auto) Eos # (Auto) Baso # (Auto) Abs Immat Gran (auto) Absolute Neuts (auto) Absolute Nucleated RBC Nucleated RBC % (auto) PT INR Sodium Potassium Chloride Carbon Dioxide Anion Gap BUN Creatinine Estim Creat Clear Calc Estimated GFR POC Glucose 63 71 111 Random Glucose Estimat Average Glucose Hemoglobin A1c % Lactic Acid Lactic Acid F/U @ 2Hr Lactic Acid F/U @ 4Hr Calcium Magnesium Total Bilirubin Direct Bilirubin AST ALT Alkaline Phosphatase Ammonia Troponin I High Sens C-Reactive Protein B-Natriuretic Peptide Total Protein Albumin Prealbumin Lipase TSH Urine Color Urine Appearance Urine pH Ur Specific [place] Urine Protein Urine Glucose (UA) Urine Ketones Urine Blood Urine Nitrite Ur Leukocyte Esterase Urine RBC Urine WBC Ur Squamous Epith Cells Urine Bacteria Hyaline Casts Ethyl Alcohol COVID-19 ([facility]) COVID-19 [employer] Com Blood Type Antibody Screen 07/20/22 07/20/22 07/20/22 07:18 10:31 10:31 WBC RBC Hgb Hct MCV MCH MCHC RDW Plt Count MPV Immature Gran % (Auto) Neut % (Auto) Lymph % (Auto) Reagan % (Auto) Eos % (Auto) Baso % (Auto) Lymph # (Auto) Reagan # (Auto) Eos # (Auto) Baso # (Auto) Abs Immat Gran (auto) Absolute Neuts (auto) Absolute Nucleated RBC Nucleated RBC % (auto) PT INR Sodium Potassium Chloride Carbon Dioxide Anion Gap BUN Creatinine Estim Creat Clear Calc Estimated GFR POC Glucose 110 Random Glucose Estimat Average Glucose 180 Hemoglobin A1c % 7.9 Lactic Acid Lactic Acid F/U @ 2Hr Lactic Acid F/U @ 4Hr Calcium Magnesium Total Bilirubin Direct Bilirubin AST ALT Alkaline Phosphatase Ammonia Troponin I High Sens C-Reactive Protein B-Natriuretic Peptide Total Protein Albumin Prealbumin 22.0 Lipase TSH Urine Color Urine Appearance Urine pH Ur Specific [place] Urine Protein Urine Glucose (UA) Urine Ketones Urine Blood Urine Nitrite Ur Leukocyte Esterase Urine RBC Urine WBC Ur Squamous Epith Cells Urine Bacteria Hyaline Casts Ethyl Alcohol COVID-19 ([facility]) COVID-19 [employer] Blood Type Antibody Screen 07/20/22 07/20/22 07/20/22 11:21 13:13 16:19 WBC RBC Hgb Hct MCV MCH MCHC RDW Plt Count MPV Immature Gran % (Auto) Neut % (Auto) Lymph % (Auto) Reagan % (Auto) Eos % (Auto) Baso % (Auto) Lymph # (Auto) Reagan # (Auto) Eos # (Auto) Baso # (Auto) Abs Immat Gran (auto) Absolute Neuts (auto) Absolute Nucleated RBC Nucleated RBC % (auto) PT INR Sodium Potassium Chloride Carbon Dioxide Anion Gap BUN Creatinine Estim Creat Clear Calc Estimated GFR POC Glucose 69 133 H 61 Random Glucose Estimat Average Glucose Hemoglobin A1c % Lactic Acid Lactic Acid F/U @ 2Hr Lactic Acid F/U @ 4Hr Calcium Magnesium Total Bilirubin Direct Bilirubin AST ALT Alkaline Phosphatase Ammonia Troponin I High Sens C-Reactive Protein B-Natriuretic Peptide Total Protein Albumin Prealbumin Lipase TSH Urine Color Urine Appearance Urine pH Ur Specific [place] Urine Protein Urine Glucose (UA) Urine Ketones Urine Blood Urine Nitrite Ur Leukocyte Esterase Urine RBC Urine WBC Ur Squamous Epith Cells Urine Bacteria Hyaline Casts Ethyl Alcohol COVID-19 ([facility]) COVID-19 [employer] Com Blood Type Antibody Screen 07/20/22 07/20/22 07/21/22 19:33 23:46 00:42 WBC RBC Hgb Hct MCV MCH MCHC RDW Plt Count MPV Immature Gran % (Auto) Neut % (Auto) Lymph % (Auto) Reagan % (Auto) Eos % (Auto) Baso % (Auto) Lymph # (Auto) Reagan # (Auto) Eos # (Auto) Baso # (Auto) Abs Immat Gran (auto) Absolute Neuts (auto) Absolute Nucleated RBC Nucleated RBC % (auto) PT INR Sodium Potassium Chloride Carbon Dioxide Anion Gap BUN Creatinine Estim Creat Clear Calc Estimated GFR POC Glucose 85 64 189 H Random Glucose Estimat Average Glucose Hemoglobin A1c % Lactic Acid Lactic Acid F/U @ 2Hr Lactic Acid F/U @ 4Hr Calcium Magnesium Total Bilirubin Direct Bilirubin AST ALT Alkaline Phosphatase Ammonia Troponin I High Sens C-Reactive Protein B-Natriuretic Peptide Total Protein Albumin Prealbumin Lipase TSH Urine Color Urine Appearance Urine pH Ur Specific [place] Urine Protein Urine Glucose (UA) Urine Ketones Urine Blood Urine Nitrite Ur Leukocyte Esterase Urine RBC Urine WBC Ur Squamous Epith Cells Urine Bacteria Hyaline Casts Ethyl Alcohol COVID-19 ([facility]) COVID-19 [employer] Com Blood Type Antibody Screen 07/21/22 07/21/22 07/21/22 03:52 06:16 06:16 WBC 7.3 RBC 3.84 L Hgb 11.7 L Hct 35.4 L MCV 92.2 MCH 30.5 MCHC 33.1 RDW 15.9 Plt Count 141 L MPV 10.5 Immature Gran % (Auto) Neut % (Auto) Lymph % (Auto) Reagan % (Auto) Eos % (Auto) Baso % (Auto) Lymph # (Auto) Reagan # (Auto) Eos # (Auto) Baso # (Auto) Abs Immat Gran (auto) Absolute Neuts (auto) Absolute Nucleated RBC 0.000 Nucleated RBC % (auto) 0.0 PT INR Sodium 140 Potassium 4.0 Chloride 110 H Carbon Dioxide 23 Anion Gap 11 L BUN 13 Creatinine 0.84 Estim Creat Clear Calc 74.8 Estimated GFR > 60 POC Glucose 112 Random Glucose 84 Estimat Average Glucose Hemoglobin A1c % Lactic Acid Lactic Acid F/U @ 2Hr Lactic Acid F/U @ 4Hr Calcium 8.4 Magnesium Total Bilirubin 3.0 H Direct Bilirubin 1.6 H AST 104 H ALT 233 H Alkaline Phosphatase 156 H Ammonia Troponin I High Sens C-Reactive Protein B-Natriuretic Peptide Total Protein 5.2 L Albumin 2.8 L Prealbumin Lipase TSH Urine Color Urine Appearance Urine pH Ur Specific [place] Urine Protein Urine Glucose (UA) Urine Ketones Urine Blood Urine Nitrite Ur Leukocyte Esterase Urine RBC Urine WBC Ur Squamous Epith Cells Urine Bacteria Hyaline Casts Ethyl Alcohol COVID-19 ([facility]) COVID-19 [employer] Blood Type Antibody Screen 07/21/22 07/21/22 07/21/22 07:38 11:34 16:01 WBC RBC Hgb Hct MCV MCH MCHC RDW Plt Count MPV Immature Gran % (Auto) Neut % (Auto) Lymph % (Auto) Reagan % (Auto) Eos % (Auto) Baso % (Auto) Lymph # (Auto) Reagan # (Auto) Eos # (Auto) Baso # (Auto) Abs Immat Gran (auto) Absolute Neuts (auto) Absolute Nucleated RBC Nucleated RBC % (auto) PT INR Sodium Potassium Chloride Carbon Dioxide Anion Gap BUN Creatinine Estim Creat Clear Calc Estimated GFR POC Glucose 102 93 231 H Random Glucose Estimat Average Glucose Hemoglobin A1c % Lactic Acid Lactic Acid F/U @ 2Hr Lactic Acid F/U @ 4Hr Calcium Magnesium Total Bilirubin Direct Bilirubin AST ALT Alkaline Phosphatase Ammonia Troponin I High Sens C-Reactive Protein B-Natriuretic Peptide Total Protein Albumin Prealbumin Lipase TSH Urine Color Urine Appearance Urine pH Ur Specific [place] Urine Protein Urine Glucose (UA) Urine Ketones Urine Blood Urine Nitrite Ur Leukocyte Esterase Urine RBC Urine WBC Ur Squamous Epith Cells Urine Bacteria Hyaline Casts Ethyl Alcohol COVID-19 ([facility]) COVID-19 [employer] Blood Type Antibody Screen 07/21/22 07/21/22 07/22/22 19:49 23:48 03:30 WBC RBC Hgb Hct MCV MCH MCHC RDW Plt Count MPV Immature Gran % (Auto) Neut % (Auto) Lymph % (Auto) Reagan % (Auto) Eos % (Auto) Baso % (Auto) Lymph # (Auto) Reagan # (Auto) Eos # (Auto) Baso # (Auto) Abs Immat Gran (auto) Absolute Neuts (auto) Absolute Nucleated RBC Nucleated RBC % (auto) PT INR Sodium Potassium Chloride Carbon Dioxide Anion Gap BUN Creatinine Estim Creat Clear Calc Estimated GFR POC Glucose 245 H 120 H 107 Random Glucose Estimat Average Glucose Hemoglobin A1c % Lactic Acid Lactic Acid F/U @ 2Hr Lactic Acid F/U @ 4Hr Calcium Magnesium Total Bilirubin Direct Bilirubin AST ALT Alkaline Phosphatase Ammonia Troponin I High Sens C-Reactive Protein B-Natriuretic Peptide Total Protein Albumin Prealbumin Lipase TSH Urine Color Urine Appearance Urine pH Ur Specific [place] Urine Protein Urine Glucose (UA) Urine Ketones Urine Blood Urine Nitrite Ur Leukocyte Esterase Urine RBC Urine WBC Ur Squamous Epith Cells Urine Bacteria Hyaline Casts Ethyl Alcohol COVID-19 ([facility]NA) [employer] Blood Type Antibody Screen 07/22/22 07/22/22 07/22/22 05:36 06:06 07:42 WBC RBC Hgb Hct MCV MCH MCHC RDW Plt Count MPV Immature Gran % (Auto) Neut % (Auto) Lymph % (Auto) Reagan % (Auto) Eos % (Auto) Baso % (Auto) Lymph # (Auto) Reagan # (Auto) Eos # (Auto) Baso # (Auto) Abs Immat Gran (auto) Absolute Neuts (auto) Absolute Nucleated RBC Nucleated RBC % (auto) PT INR Sodium 141 Potassium 3.6 Chloride 111 H Carbon Dioxide 23 Anion Gap 11 L BUN 9 Creatinine 0.82 Estim Creat Clear Calc 76.6 Estimated GFR > 60 POC Glucose 124 H 132 H Random Glucose 115 Estimat Average Glucose Hemoglobin A1c % Lactic Acid Lactic Acid F/U @ 2Hr Lactic Acid F/U @ 4Hr Calcium 8.2 L Magnesium Total Bilirubin 2.6 H Direct Bilirubin 1.6 H AST 48 H ALT 154 H Alkaline Phosphatase 199 H Ammonia Troponin I High Sens C-Reactive Protein B-Natriuretic Peptide Total Protein 4.9 L Albumin 2.7 L Prealbumin Lipase TSH Urine Color Urine Appearance Urine pH Ur Specific [place] Urine Protein Urine Glucose (UA) Urine Ketones Urine Blood Urine Nitrite Ur Leukocyte Esterase Urine RBC Urine WBC Ur Squamous Epith Cells Urine Bacteria Hyaline Casts Ethyl Alcohol COVID-19 ([facility]NA) [employer] Blood Type Antibody Screen 07/22/22 07/22/22 07/22/22 11:45 15:51 19:53 WBC RBC Hgb Hct MCV MCH MCHC RDW Plt Count MPV Immature Gran % (Auto) Neut % (Auto) Lymph % (Auto) Reagan % (Auto) Eos % (Auto) Baso % (Auto) Lymph # (Auto) Reagan # (Auto) Eos # (Auto) Baso # (Auto) Abs Immat Gran (auto) Absolute Neuts (auto) Absolute Nucleated RBC Nucleated RBC % (auto) PT INR Sodium Potassium Chloride Carbon Dioxide Anion Gap BUN Creatinine Estim Creat Clear Calc Estimated GFR POC Glucose 260 H 205 H 97 Random Glucose Estimat Average Glucose Hemoglobin A1c % Lactic Acid Lactic Acid F/U @ 2Hr Lactic Acid F/U @ 4Hr Calcium Magnesium Total Bilirubin Direct Bilirubin AST ALT Alkaline Phosphatase Ammonia Troponin I High Sens C-Reactive Protein B-Natriuretic Peptide Total Protein Albumin Prealbumin Lipase TSH Urine Color Urine Appearance Urine pH Ur Specific [place] Urine Protein Urine Glucose (UA) Urine Ketones Urine Blood Urine Nitrite Ur Leukocyte Esterase Urine RBC Urine WBC Ur Squamous Epith Cells Urine Bacteria Hyaline Casts Ethyl Alcohol COVID-19 ([facility]LENA) [employer] Blood Type Antibody Screen 07/22/22 07/23/22 07/23/22 23:48 04:20 04:20 WBC RBC Hgb Hct MCV MCH MCHC RDW Plt Count MPV Immature Gran % (Auto) Neut % (Auto) Lymph % (Auto) Reagan % (Auto) Eos % (Auto) Baso % (Auto) Lymph # (Auto) Reagan # (Auto) Eos # (Auto) Baso # (Auto) Abs Immat Gran (auto) Absolute Neuts (auto) Absolute Nucleated RBC Nucleated RBC % (auto) PT 11.2 INR 1.0 Sodium 141 Potassium 3.7 Chloride 107 Carbon Dioxide 24 Anion Gap 14 BUN 8 L Creatinine 0.84 Estim Creat Clear Calc 74.8 Estimated GFR > 60 POC Glucose 80 Random Glucose 94 Estimat Average Glucose Hemoglobin A1c % Lactic Acid Lactic Acid F/U @ 2Hr Lactic Acid F/U @ 4Hr Calcium 8.9 D Magnesium Total Bilirubin 2.6 H Direct Bilirubin 1.5 H AST 42 H ALT 140 H Alkaline Phosphatase 292 H Ammonia Troponin I High Sens C-Reactive Protein B-Natriuretic Peptide Total Protein 6.0 L Albumin 3.2 L Prealbumin Lipase TSH Urine Color Urine Appearance Urine pH Ur Specific [place] Urine Protein Urine Glucose (UA) Urine Ketones Urine Blood Urine Nitrite Ur Leukocyte Esterase Urine RBC Urine WBC Ur Squamous Epith Cells Urine Bacteria Hyaline Casts Ethyl Alcohol COVID-19 ([facility]LENA) [employer] Blood Type Antibody Screen 07/23/22 07/23/22 07/23/22 05:04 07:53 11:51 WBC RBC Hgb Hct MCV MCH MCHC RDW Plt Count MPV Immature Gran % (Auto) Neut % (Auto) Lymph % (Auto) Reagan % (Auto) Eos % (Auto) Baso % (Auto) Lymph # (Auto) Reagan # (Auto) Eos # (Auto) Baso # (Auto) Abs Immat Gran (auto) Absolute Neuts (auto) Absolute Nucleated RBC Nucleated RBC % (auto) PT INR Sodium Potassium Chloride Carbon Dioxide Anion Gap BUN Creatinine Estim Creat Clear Calc Estimated GFR POC Glucose 119 H 146 H 208 H Random Glucose Estimat Average Glucose Hemoglobin A1c % Lactic Acid Lactic Acid F/U @ 2Hr Lactic Acid F/U @ 4Hr Calcium Magnesium Total Bilirubin Direct Bilirubin AST ALT Alkaline Phosphatase Ammonia Troponin I High Sens C-Reactive Protein B-Natriuretic Peptide Total Protein Albumin Prealbumin Lipase TSH Urine Color Urine Appearance Urine pH Ur Specific [place] Urine Protein Urine Glucose (UA) Urine Ketones Urine Blood Urine Nitrite Ur Leukocyte Esterase Urine RBC Urine WBC Ur Squamous Epith Cells Urine Bacteria Hyaline Casts Ethyl Alcohol COVID-19 (HELENA) COVID-19 [facility] Blood Type Antibody Screen 07/23/22 07/23/22 07/24/22 16:36 20:43 00:34 WBC RBC Hgb Hct MCV MCH MCHC RDW Plt Count MPV Immature Gran % (Auto) Neut % (Auto) Lymph % (Auto) Reagan % (Auto) Eos % (Auto) Baso % (Auto) Lymph # (Auto) Reagan # (Auto) Eos # (Auto) Baso # (Auto) Abs Immat Gran (auto) Absolute Neuts (auto) Absolute Nucleated RBC Nucleated RBC % (auto) PT INR Sodium Potassium Chloride Carbon Dioxide Anion Gap BUN Creatinine Estim Creat Clear Calc Estimated GFR POC Glucose 202 H 198 H 147 H Random Glucose Estimat Average Glucose Hemoglobin A1c % Lactic Acid Lactic Acid F/U @ 2Hr Lactic Acid F/U @ 4Hr Calcium Magnesium Total Bilirubin Direct Bilirubin AST ALT Alkaline Phosphatase Ammonia Troponin I High Sens C-Reactive Protein B-Natriuretic Peptide Total Protein Albumin Prealbumin Lipase TSH Urine Color Urine Appearance Urine pH Ur Specific [place] Urine Protein Urine Glucose (UA) Urine Ketones Urine Blood Urine Nitrite Ur Leukocyte Esterase Urine RBC Urine WBC Ur Squamous Epith Cells Urine Bacteria Hyaline Casts Ethyl Alcohol COVID-19 (HELENA) COVID-19 [facility] Blood Type Antibody Screen 07/24/22 07/24/22 07/24/22 04:29 04:29 04:54 WBC 9.1 RBC 4.24 L Hgb 12.9 L Hct 38.5 L MCV 90.8 MCH 30.4 MCHC 33.5 RDW 15.9 Plt Count 207 D MPV 10.0 Immature Gran % (Auto) Neut % (Auto) Lymph % (Auto) Reagan % (Auto) Eos % (Auto) Baso % (Auto) Lymph # (Auto) Reagan # (Auto) Eos # (Auto) Baso # (Auto) Abs Immat Gran (auto) Absolute Neuts (auto) Absolute Nucleated RBC 0.000 Nucleated RBC % (auto) 0.0 PT INR Sodium 138 Potassium 3.7 Chloride 107 Carbon Dioxide 22 Anion Gap 13 BUN 13 Creatinine 0.80 Estim Creat Clear Calc 78.5 Estimated GFR > 60 POC Glucose 136 H Random Glucose 134 H Estimat Average Glucose Hemoglobin A1c % Lactic Acid Lactic Acid F/U @ 2Hr Lactic Acid F/U @ 4Hr Calcium 8.4 Magnesium 1.9 Total Bilirubin 2.0 H Direct Bilirubin 1.1 H AST 31 ALT 101 H Alkaline Phosphatase 346 H Ammonia Troponin I High Sens C-Reactive Protein 7.87 H B-Natriuretic Peptide Total Protein 5.4 L Albumin 3.0 L Prealbumin Lipase TSH 3.27 Urine Color Urine Appearance Urine pH Ur Specific [place] Urine Protein Urine Glucose (UA) Urine Ketones Urine Blood Urine Nitrite Ur Leukocyte Esterase Urine RBC Urine WBC Ur Squamous Epith Cells Urine Bacteria Hyaline Casts Ethyl Alcohol COVID-19 (HELENA) COVID-19 Clin Com Blood Type Antibody Screen 07/24/22 07/24/22 07/24/22 07:58 11:56 15:28 WBC RBC Hgb Hct MCV MCH MCHC RDW Plt Count MPV Immature Gran % (Auto) Neut % (Auto) Lymph % (Auto) Reagan % (Auto) Eos % (Auto) Baso % (Auto) Lymph # (Auto) Reagan # (Auto) Eos # (Auto) Baso # (Auto) Abs Immat Gran (auto) Absolute Neuts (auto) Absolute Nucleated RBC Nucleated RBC % (auto) PT INR Sodium Potassium Chloride Carbon Dioxide Anion Gap BUN Creatinine Estim Creat Clear Calc Estimated GFR POC Glucose 167 H 286 H 267 H Random Glucose Estimat Average Glucose Hemoglobin A1c % Lactic Acid Lactic Acid F/U @ 2Hr Lactic Acid F/U @ 4Hr Calcium Magnesium Total Bilirubin Direct Bilirubin AST ALT Alkaline Phosphatase Ammonia Troponin I High Sens C-Reactive Protein B-Natriuretic Peptide Total Protein Albumin Prealbumin Lipase TSH Urine Color Urine Appearance Urine pH Ur Specific [place] Urine Protein Urine Glucose (UA) Urine Ketones Urine Blood Urine Nitrite Ur Leukocyte Esterase Urine RBC Urine WBC Ur Squamous Epith Cells Urine Bacteria Hyaline Casts Ethyl Alcohol COVID-19 (HELENA) COVID-19 [facility] Com Blood Type Antibody Screen 07/24/22 07/25/22 07/25/22 19:32 01:05 06:43 WBC RBC Hgb Hct MCV MCH MCHC RDW Plt Count MPV Immature Gran % (Auto) Neut % (Auto) Lymph % (Auto) Reagan % (Auto) Eos % (Auto) Baso % (Auto) Lymph # (Auto) Reagan # (Auto) Eos # (Auto) Baso # (Auto) Abs Immat Gran (auto) Absolute Neuts (auto) Absolute Nucleated RBC Nucleated RBC % (auto) PT INR Sodium Potassium Chloride Carbon Dioxide Anion Gap BUN Creatinine Estim Creat Clear Calc Estimated GFR POC Glucose 184 H 172 H 138 H Random Glucose Estimat Average Glucose Hemoglobin A1c % Lactic Acid Lactic Acid F/U @ 2Hr Lactic Acid F/U @ 4Hr Calcium Magnesium Total Bilirubin Direct Bilirubin AST ALT Alkaline Phosphatase Ammonia Troponin I High Sens C-Reactive Protein B-Natriuretic Peptide Total Protein Albumin Prealbumin Lipase TSH Urine Color Urine Appearance Urine pH Ur Specific [place] Urine Protein Urine Glucose (UA) Urine Ketones Urine Blood Urine Nitrite Ur Leukocyte Esterase Urine RBC Urine WBC Ur Squamous Epith Cells Urine Bacteria Hyaline Casts Ethyl Alcohol COVID-19 (HELENA) COVID-19 [facility] Blood Type Antibody Screen 07/25/22 07/25/22 07/25/22 07:56 08:39 11:47 WBC RBC Hgb Hct MCV MCH MCHC RDW Plt Count MPV Immature Gran % (Auto) Neut % (Auto) Lymph % (Auto) Reagan % (Auto) Eos % (Auto) Baso % (Auto) Lymph # (Auto) Reagan # (Auto) Eos # (Auto) Baso # (Auto) Abs Immat Gran (auto) Absolute Neuts (auto) Absolute Nucleated RBC Nucleated RBC % (auto) PT INR Sodium 140 Potassium 3.8 Chloride 109 H Carbon Dioxide 25 Anion Gap 10 L BUN 14 Creatinine 0.80 Estim Creat Clear Calc 78.5 Estimated GFR > 60 POC Glucose 140 H 143 H Random Glucose 133 H Estimat Average Glucose Hemoglobin A1c % Lactic Acid Lactic Acid F/U @ 2Hr Lactic Acid F/U @ 4Hr Calcium 8.2 L Magnesium Total Bilirubin 1.5 H Direct Bilirubin AST 25 ALT 69 H Alkaline Phosphatase 331 H Ammonia Troponin I High Sens C-Reactive Protein B-Natriuretic Peptide Total Protein 5.2 L Albumin 2.8 L Prealbumin Lipase TSH Urine Color Urine Appearance Urine pH Ur Specific [place] Urine Protein Urine Glucose (UA) Urine Ketones Urine Blood Urine Nitrite Ur Leukocyte Esterase Urine RBC Urine WBC Ur Squamous Epith Cells Urine Bacteria Hyaline Casts Ethyl Alcohol COVID-19 (HELENA) COVID-19 [facility] Blood Type Antibody Screen 07/25/22 07/25/22 07/26/22 16:33 20:25 00:27 WBC RBC Hgb Hct MCV MCH MCHC RDW Plt Count MPV Immature Gran % (Auto) Neut % (Auto) Lymph % (Auto) Reagan % (Auto) Eos % (Auto) Baso % (Auto) Lymph # (Auto) Reagan # (Auto) Eos # (Auto) Baso # (Auto) Abs Immat Gran (auto) Absolute Neuts (auto) Absolute Nucleated RBC Nucleated RBC % (auto) PT INR Sodium Potassium Chloride Carbon Dioxide Anion Gap BUN Creatinine Estim Creat Clear Calc Estimated GFR POC Glucose 247 H 127 H 110 Random Glucose Estimat Average Glucose Hemoglobin A1c % Lactic Acid Lactic Acid F/U @ 2Hr Lactic Acid F/U @ 4Hr Calcium Magnesium Total Bilirubin Direct Bilirubin AST ALT Alkaline Phosphatase Ammonia Troponin I High Sens C-Reactive Protein B-Natriuretic Peptide Total Protein Albumin Prealbumin Lipase TSH Urine Color Urine Appearance Urine pH Ur Specific [place] Urine Protein Urine Glucose (UA) Urine Ketones Urine Blood Urine Nitrite Ur Leukocyte Esterase Urine RBC Urine WBC Ur Squamous Epith Cells Urine Bacteria Hyaline Casts Ethyl Alcohol COVID-19 (HELENA) COVID-19 [facility] Blood Type Antibody Screen 07/26/22 07/26/22 07/26/22 05:56 05:57 05:57 WBC RBC Hgb Hct MCV MCH MCHC RDW Plt Count MPV Immature Gran % (Auto) Neut % (Auto) Lymph % (Auto) Reagan % (Auto) Eos % (Auto) Baso % (Auto) Lymph # (Auto) Reagan # (Auto) Eos # (Auto) Baso # (Auto) Abs Immat Gran (auto) Absolute Neuts (auto) Absolute Nucleated RBC Nucleated RBC % (auto) PT INR Sodium 137 Potassium 3.9 Chloride 107 Carbon Dioxide 21 L Anion Gap 13 BUN 13 Creatinine 0.78 Estim Creat Clear Calc 80.5 Estimated GFR > 60 POC Glucose 165 H Random Glucose 148 H Estimat Average Glucose Hemoglobin A1c % Lactic Acid Lactic Acid F/U @ 2Hr Lactic Acid F/U @ 4Hr Calcium 8.2 L Magnesium Total Bilirubin 1.3 H Direct Bilirubin AST 21 ALT 58 H Alkaline Phosphatase 298 H Ammonia Troponin I High Sens C-Reactive Protein B-Natriuretic Peptide Total Protein 5.4 L Albumin 2.8 L Prealbumin Lipase TSH Urine Color Urine Appearance Urine pH Ur Specific [place] Urine Protein Urine Glucose (UA) Urine Ketones Urine Blood Urine Nitrite Ur Leukocyte Esterase Urine RBC Urine WBC Ur Squamous Epith Cells Urine Bacteria Hyaline Casts Ethyl Alcohol COVID-19 (HELENA) COVID-19 [facility] Com Blood Type O Positive Antibody Screen NEGATIVE 07/26/22 07:40 WBC RBC Hgb Hct MCV MCH MCHC RDW Plt Count MPV Immature Gran % (Auto) Neut % (Auto) Lymph % (Auto) Reagan % (Auto) Eos % (Auto) Baso % (Auto) Lymph # (Auto) Reagan # (Auto) Eos # (Auto) Baso # (Auto) Abs Immat Gran (auto) Absolute Neuts (auto) Absolute Nucleated RBC Nucleated RBC % (auto) PT INR Sodium Potassium Chloride Carbon Dioxide Anion Gap BUN Creatinine Estim Creat Clear Calc Estimated GFR POC Glucose 160 H Random Glucose Estimat Average Glucose Hemoglobin A1c % Lactic Acid Lactic Acid F/U @ 2Hr Lactic Acid F/U @ 4Hr Calcium Magnesium Total Bilirubin Direct Bilirubin AST ALT Alkaline Phosphatase Ammonia Troponin I High Sens C-Reactive Protein B-Natriuretic Peptide Total Protein Albumin Prealbumin Lipase TSH Urine Color Urine Appearance Urine pH Ur Specific [place] Urine Protein Urine Glucose (UA) Urine Ketones Urine Blood Urine Nitrite Ur Leukocyte Esterase Urine RBC Urine WBC Ur Squamous Epith Cells Urine Bacteria Hyaline Casts Ethyl Alcohol COVID-19 (HELENA) COVID-19 [facility] Blood Type Antibody Screen Airway Mallampati Class: I TM Dist: >3cm Neck ROM: Full Denture: Upper and Lower Heart: ok. aflutter. on amiodarone. Lungs: ok Assessment and Plan Assessment Anesthesia Assessment: Anesthesia Plan Discussed and Chart Reviewed Final Anesthetic Review Family History of Problems with Anesthesia: No History of Problems with Anesthesia: No NPO: Yes ASA Class: IV Final Preanesthetic Review: No Changes in Pt Med Stat, Meds/Allgs Chart Reviewed, Consent Obtained/Reviewed and Anes Risks/Benef Reviewed Patient Risk: High Procedure Risk: Intermediate Anesthetic Plan Anesthetic Plan: GA and Agree w/ Assess. and Plan Disposition: Standard PACU
[2022-07-26 11:11] LABS: Glucose, Whole Blood 160 mg/dL (60-115)
--- NOTE | 2022-07-26 11:55 | PC.NURSE ---
Patient A&OX4 neurologically intact. BITA to right lateral abdomen with scant old drainage dressing in place. Plan for OR at 1000 patient educated on plan, able to call daughters to come in prior to transfer. Bed bath given and linen changed prior. [facility] [place] dim bases denies shortness of breath or chest pain, initially NSR on tele in 70's [id number] pt converted to Afib 110-120's on tele remains asymptomatic. Dr Li notified, Cardiology on unit to see patient. Amiodarone bolus given per order. Pt transferred to OR at 1030 in bed.
--- NOTE | 2022-07-26 12:24 | P.PNIM_ITS ---
Subjective Subjective Date of Service: 07/26/22 Interval History: was in sinus until this AM when he converted back to A flutter given 150 mg IV amiodarone NPO for OR no abd pain no chest pain no dizziness or lightheadedness no dyspnea Review of Systems Review of Systems: Yes all other systems are reviewed and are negative Physical Exam Vital Signs: Vital Signs: Last Vital Signs Temp 99.1 F 07/26/22 10:51 Pulse 124 H 07/26/22 10:51 Resp 18 07/26/22 10:51 BP 143/74 H 07/26/22 10:51 Pulse Ox 94 07/26/22 10:51 O2 Del Method Room Air 07/26/22 10:51 O2 Flow Rate 2 07/22/22 11:42 BMI result Body Mass Index 25.1 Gen: in no acute distress HEENT: sclera anicteric, moist mucus membranes Neck: supple Lungs: clear to auscultation bilaterally Heart: irregularly irregular, no murmurs Abd: soft, non-tender, non-distended, cholecystostomy tube with old drainage Ext: no edema Skin: warm/well-perfused Neuro: alert and oriented x3, no focal findings Psych: appropriate affect Objective Data Active Medications Acetaminophen (Acetaminophen 325 Mg Tablet) 650 mg PO Q6H PRN PRN Reason: Pain, Mild (Pain Scale 1-3) Enoxaparin Sodium (Enoxaparin Sodium 80 Mg/0.8 Ml Syringe) 80 mg SUBCUT Q12H [facility] Last Admin: 07/25/22 20:53 Dose: 80 mg Documented By: ADAMS Fentanyl (Fentanyl Citrate/Pf 100 Mcg/2 Ml Vial) 50 mcg IVPUSH Q5M PRN; Prot ocol PRN Reason: Pain, Severe (Pain Scale 7-10) Glucose (Glucose Gel 15 Gm Gel..Gram.) 15 gm PO Q15M PRN; Protocol PRN Reason: per Hypoglycemia Standing Ord. Last Admin: 07/20/22 06:03 Dose: 15 gm Documented By: RANDY Hydromorphone HCl (Hydromorphone Hcl 0.5 Mg/0.5 Ml Syringe) 0.5 mg IVPUSH Q5M PRN; Protocol PRN Reason: Pain, Severe (Pain Scale 7-10) Dextrose (D10) 250 mls @ 750 mls/hr IV Q15M PRN; Protocol PRN Reason: per Hypoglycemia Standing Ord. Last Infusion: 07/21/22 00:15 Dose: 0 mls/hr Documented By: ISAIAH Ceftriaxone Sodium 1 gm/ (Sodium Chloride) 50 mls @ 100 mls/hr IV Q24H [facility] Last Infusion: 07/25/22 13:48 Dose: 0 mls/hr Documented By: LESLIE Metronidazole (Flagyl) 500 mg in 100 mls @ 100 mls/hr IV Q8H [facility] Last Infusion: 07/26/22 03:52 Dose: 0 mls/hr Documented By: ADAMS Amiodarone HCl 900 mg/ Sodium (Chloride) 518 mls @ 17.267 mls/hr IVCONT .Q24H [facility] Last Admin: 07/25/22 17:30 Dose: 0.5 mg/min, 17.27 mls/hr Documented By: LESLIE Insulin Human Lispro (Insulin Lispro 100 Unit/Ml 3 Ml Vial) 0 unit SUBCUT Q6H [facility]; Protocol Last Admin: 07/26/22 06:41 Dose: Not Given Documented By: ADAMS Non-Admin Reason: NPO Lorazepam (Lorazepam 0.5 Mg Tablet) 0.5 mg PO Q12H PRN PRN Reason: Anxiety Melatonin (Melatonin 3 Mg Tablet) 6 mg PO BEDTIME PRN PRN Reason: Insomnia Metoprolol Tartrate (Metoprolol Tartrate 50 Mg Tablet) 50 mg PO BID [facility]; Protocol Last Admin: 07/26/22 08:45 Dose: 50 mg Documented By: LUANA Ondansetron HCl (Ondansetron Hcl 4 Mg/2 Ml Vial) 4 mg IVPUSH Q8H PRN PRN Reason: Nausea and Vomiting Ondansetron HCl (Ondansetron Hcl 4 Mg/2 Ml Vial) 4 mg IVPUSH ONCE PRN PRN Reason: Nausea and Vomiting Oxycodone HCl (Oxycodone Hcl Immed Release 5 Mg Tablet) 5 mg PO Q4H PRN PRN Reason: severe pain Last Admin: 07/26/22 04:24 Dose: 5 mg Documented By: ADAMS Pharmacy Consult (Consult Rx Perform Med Rec) 1 each MISCELLANE ONCE PRN PRN Reason: Consult order Sodium Chloride (0.9 % Sodium Chloride Flush 3 Ml Syringe) 3 ml IVFLUSH QSHIFT [facility] Last Admin: 07/26/22 08:37 Dose: Not Given Documented By: LUNAA Non-Admin Reason: IV Running Labs 07/24/22 04:29 07/26/22 05:57 Labs: Laboratory Results - last 24 hr 07/25/22 07/25/22 07/26/22 16:33 20:25 00:27 Anion Gap Estim Creat Clear Calc Estimated GFR POC Glucose 247 H 127 H 110 Random Glucose Calcium Total Bilirubin AST ALT Alkaline Phosphatase Total Protein Albumin Blood Type Antibody Screen 07/26/22 07/26/22 07/26/22 05:56 05:57 05:57 Anion Gap 13 Estim Creat Clear Calc 80.5 Estimated GFR > 60 POC Glucose 165 H Random Glucose 148 H Calcium 8.2 L Total Bilirubin 1.3 H AST 21 ALT 58 H Alkaline Phosphatase 298 H Total Protein 5.4 L Albumin 2.8 L Blood Type O Positive Antibody Screen NEGATIVE 07/26/22 07/26/22 07:40 11:06 Anion Gap Estim Creat Clear Calc Estimated GFR POC Glucose 160 H 160 H Random Glucose Calcium Total Bilirubin AST ALT Alkaline Phosphatase Total Protein Albumin Blood Type Antibody Screen Assessment and Plan (1) Abnormal LFTs: Status: Acute (2) Acute calculous cholecystitis: Status: Acute Plan d#8 77yo M with psoriatic arthritis, paroxysmal atrial fibrillation not on anticoagulation, diabetes mellitus type 2 on insulin, and 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, history of cholecystitis managed with cholecystostomy tube placed 04/30/22 brought in to [facility] by EMS due to generalized weakness admitted for severe sepsis due to cholecystitis # paroxysmal AF with RVR - converted on amiodarone drip on 07/24, given bolus today - continue metoprolol - therapeutic enoxaparin for AC, switch to apixaban postop - Cardiology following, may need cardioversion if persists # severe sepsis due to acute cholecystitis - sepsis resolved, CT A/P +abd US consistent with acute cholecytiis - pip-iman 07/19-07/20, then ceftriaxone/metronidazole 07/20-present due to prior culture showing E coli, Klebseilla, and Bacteroides - MRCP not done due to [employer] shunt - HIDA scan: nonvisualized GB, could be due to cystic duct obstruction [not due to the cholecystostomy tube as it is not even in the gallbladder] - per Surgery, high risk for surgery and would not operate at this time; in addition, abdomen soft/non-tender. 2nd opinion requested from Dr Mariee as Dr Martinez and I feel strongly that definitive source control is indicated given his 2nd episode of biliary sepsis - per Cardiology, intermediate risk for surgery and at this point benefits outweigh risks - to OR today # DM2, A1c 7.9 - correction-dose lispro # psoriatic arthritis - hold etanercept + methotrexate # HTN - continue metoprolol; holding amlodipine, furosemide, and lisinopril due to sepsis # VTE ppx: LMWH # dispo: TBD In my clinical judgment, the patient requires continued inpatient hospitalization for the following reasons: IV ABX, operative intervention Time Spent With Patient Time: Total time managing care of this patient today _40___ minutes. Quality Stroke Does the patient have a stroke diagnosis?: No VTE Prior VTE?: No VTE Risk Level:: Medical - moderate - high VTE Device Contraindication: N/A - Device Ordered VTE Drug Contraindication: Treatment Not Indicated
--- NOTE | 2022-07-26 14:44 | W.PM.OPN ---
Operative Note Operative Note Date of Service: 07/26/22 Narrative: Preop diagnosis: chronic cholecystitis Postop diagnosis: acute and chronic cholecystitis with significant persistent edema of the gallbladder wall, marked scarring surrounded the gallbladder with poor planes of dissection Procedure: Attempted laparoscopic cholecystectomy, converted to subtotal fenestrating cholecystectomy Surgeon: Andrey Mariee MD fleet administrative assistant: ALCIDES Aguilar The patient is a 77-year-old male who had a previous tube cholecystostomy for acute cholecystitis in April,. He was readmitted for signs of sepsis last week. I have been requested to proceed with cholecystectomy as there were no other etiology of his sepsis identified. His CAT scan shows what appeared to be chronic changes of the gallbladder wall with a large stone. He also had a LIMEROCK TOWER LOADER shunt in place. He wanted to proceed with cholecystectomy. I had discussed this with the patient and the family. The understood the perioperative risks involved in view of his diabetes, atrial flutter with rapid ventricular response and overall frailty. He was brought to the operating room placed supine on the OR table under general anesthesia via endotracheal tube. The cholecystostomy tube which was in the subcutaneous layer CT scan was removed. The abdomen was prepped and draped in the usual sterile fashion. A surgical time-out was done. The patient was on scheduled antibiotics. I made a short supraumbilical incision using a blade 15. This was carried down through the full-thickness of the skin down to the fascia. The fascia was incised. The peritoneum was entered. Through this incision a [place] port was introduced. Pneumoperitoneum was introduced to a pressure 50 minutes hg. We were able to visualize the gallbladder which appeared to be edematous. The patient was seen coursing from the dome of the liver, through the abdominal wall in the epigastric area and subcutaneously up to the chest wall from there on. We therefore to stay away from this LIMEROCK TOWER LOADER shunt throughout the entire procedure. A 5/12 mm epigastric port was introduced under laparoscopic visualization. Two 5 mm ports introduced a small incisions below the subcostal margin along the anterior axillary in the midclavicular line. Graspers were placed through these working ports. The patient was placed in head-up and [id number] position. We were able to apply a grasper at the fundus of the gallbladder to retract this cephalad. There was note of a lot of adhesions surrounding this would which we had to carefully lyse with the [place] dissector. I was able to apply a grasper towards the pouch of the gallbladder to retract this laterally. At this point, with the gallbladder being retracted in a lateral and cephalad fashion, we were putting the area this is duct on stretch. However, there was note of a lot of thick, dense, adhesions in this area. I spent a lot of time trying to define this area by careful dissection with the Abigail dissector as well as the hook electrocautery. However, at some point, the thick and dense adhesions surrounding the area of the neck of the gallbladder and cystic duct, made it unsafe to proceed with laparoscopic approach. I therefore converted to an open procedure. I made a subcostal incision blade 10. Connecting the other to incisions. This was carried down to full-thickness of the skin subcutaneous fat with electrocautery. I incised the anterior rectus sheath with electrocautery all the way laterally and divided the rectus muscles were electrocautery. I divided the posterior sheath and extended the incision laterally as well. Again care was being taken there is part of the procedure to make sure that we were not imaging the the patient which was seen near the epigastric area in the subcutaneousLayer I applied the [place] retractors along with pads to retract the bowel loops away from the subhepatic space. This allowed us good exposure of the subhepatic space and the gallbladder. The gallbladder was seen and again this appeared to be still very edematous although not tensely distended. I was able to therefore apply he [place] clamps on the gallbladder. I attempted to define a plane of dissection by incising the serosa of the gallbladder and carefully blood dissection to separate the gallbladder from the liver bed. However because of the chronic inflammation that this patient has had, we did not identify any good planes of dissection at all so we encountered oozing throughout this dissection. we proceeded to a new to try to incise the serosa of the gallbladder wall to see I can identify any pain of the section at all. Eventually, as able to see a plane laterally and we followed this to separate the gallbladder from the liver bed. We were losing the entire time because of the liver bed as well as all the chronic inflammatory changes around the gallbladder all the way to the neck Eventually, with long, careful dissection, I was able to separate the posterior wall of the gallbladder from the liver bed although this was done with significant level of difficulty. We continued to have significant oozing from the liver bed which we were able to control with electrocautery as well as with this Surgicel We proceeded to continue to define the gallbladder towards the neck. We were able to observe funneling towards the neck but there was note of a band that appeared to be suspicious for a vessel. We had to careful dissection in a mm by mm fashion to make sure that this was not an aberrant vessel running from the neck of the gallbladder going towards the liver bed. Eventually, with assistance and opinion of a 2nd surgeon, Dr. Marin, we were able to identify that this was just a very thick firbrotic and so were able to transect this. I was able to identify the funneling of the gallbladder towards the neck. However, past the neck was again noted of very dense, thick and very fibrotic changes surrounding this entire neck. We attempted to continue to define the cystic duct. However we continued to encounter oozing because of all the inflammatory changes. At this point we had about 750 of blood loss from although oozing from the entire procedure. In view of the severe chronic inflammatory changes surrounding the area of the neck, I decided that it would be unsafe to continue to dissect in view of the risk of bleeding and further injury to the biliary tree. I therefore decided to proceed with a subtotal fenestrating cholecystectomy. I excised of the wall of the gallbladder to the neck. At this point the neck had been clear of any stones and we had retrieved all the stones at this point I used electrocautery to transect about 3/4 the gallbladder. I had to apply some running sutures on the divided edges of the wall for hemostasis at some segments We left the lumen open as a fenestrating cholecystectomy. Position a 7. BITA drain on the subhepatic space. This was brought out through the most lateral port site. This was secured to skin with nylon 3-0 sutures I copiously irrigated. We observed for hemostasis. Once hemostasis was confirmed, I proceeded to then remove all the packings. I closed the posterior sheath with a running Dexon 0 stitch. The fascia was closed with a running Maxon 1 stitch. Skin closure was achieved with skin timbo on all incisions. We had closed the fascia of the umbilical incision as well with a Dexon 0 stitch. All incisions were infiltrated with Marcaine 0.5% for postop analgesia. Dressings were applied. The procedure was completed The patient tolerated procedure well. There were no immediate complications. Initial and final counts of sponges and instruments were correct. Estimated blood loss was about 750 cc. The patient was extubated without difficulty and transferred to the recovery room with stable vital signs.
--- NOTE | 2022-07-26 16:11 | PM.EVENT ---
Event Note Date of Service: 07/26/22 Event Note: Seen postop Underwent open cholecystectomy Difficult procedure, prolonged OR time due to dense chronic inflammatory changes surrounding the gallbladder Blood loss was 700 cc Seems to have adequate pain control Continue pain management BITA drain in place OCEAN IMPORT REPRESENTATIVE shunt protected during the entire procedure Both daughters updated Hospitalist service updated Time Spent With Patient Time: Total time managing care of this patient today ____ minutes.
[2022-07-26] MEDS: Acetaminophen 1,000 MG/100 ML PIGGYBACK 400 MG IV ×2 (16:44→22:38)
[2022-07-26 16:45] LABS: Glucose, Whole Blood 187 mg/dL (60-115)
[2022-07-26] MEDS: HYDROmorphone HCl 0.5 MG/0.5 ML SYRINGE IVPUSH ×2 (16:45→22:41)
[2022-07-26] MEDS: 0.9 % Sodium Chloride Flush 3 ML SYRINGE IVFLUSH ×2 (16:52→19:39)
--- NOTE | 2022-07-26 17:24 | PC.NURSE ---
Patient returned to unit at 1600 in bed. Remains A&OX4 and neurologically intact. Vital signs stable. Currently on 4L oxygen via nasal cannula denies chest pain or shortness of breath. NSR in 60's on tele. [place] cath in place on arrival with clear yellow urine. Abdomen with large dressing CDI with BITA drain with small amount of serosanguineous drainage. c/o pain 9/10 to surgical site medicated with prn dilaudid with effect down to 6/10 resting in bed. IV tylenol given per order. Pt refusing meals at this time. Will continue to monitor and report changes
[2022-07-26 17:26] LABS: Basophils Percent Auto 0.2 % (0-2); Eosinophils Percent Auto 0.1 % (0-4); Hematocrit 35.7 % (42.0-52.0); Hemoglobin 11.7 g/dl (14.0-18.0); Imm Gran Abs Auto 0.21 X10*3/uL (0.00-0.03); Imm Gran Pct Auto 1.3 % (0.0-0.4); MANUAL DIFF FLAG SCAN; Mean Corpuscular HGB Conc 32.8 g/dl (31.0-36.0); Mean Corpuscular Volume 94.4 fL (80.0-98.0); Mean Platelet Volume 10.5 fL (9.4-12.4); Monocytes Percent Auto 11.9 % (2-11); Neutrophils Absolute Auto 13.4 x10*3/uL (2.0-8.3); Neutrophils Percent Auto 80.5 % (45-73); PLT CLUMP 1; Red Blood Count 3.78 X10*6/uL (4.60-5.80); Red Cell Distribution Width 16.8 % (11.0-16.0); SCAN SMEAR FLAG 1
[2022-07-26 17:38] LABS: Platelet Count 254 X10*3/uL (160-400); White Blood Count 16.6 X10*3/uL (4.8-10.8)
[2022-07-26 17:39] LABS: SLIDE REVIEW VERIFIED
[2022-07-26] MEDS: Amiodarone HCL 900 MG in 0.9 % Sodium Chloride 500 ML 17.27 MG IVCONT (18:34)
[2022-07-26 19:39] LABS: Glucose, Whole Blood 212 mg/dL (60-115)
[2022-07-27] VITALS (7 sets, daily range): BP systolic 114–163; BP diastolic 56–74; PULSE 61–73; RESP 14–20; TEMP 36.1–37.6; O2SAT 91–95
[2022-07-27 00:25] LABS: Glucose, Whole Blood 196 mg/dL (60-115)
[2022-07-27] MEDS: metroNIDAZOLE/NS 500 MG/100 ML PIGGYBACK 100 MG IV ×3 (03:18→20:24)
[2022-07-27] MEDS: HYDROmorphone HCl 0.5 MG/0.5 ML SYRINGE IVPUSH ×2 (03:19→11:27)
[2022-07-27] MEDS: oxyCODONE HCl Immed Release 5 MG TABLET PO ×5 (03:30→21:57)
[2022-07-27] MEDS: Acetaminophen 1,000 MG/100 ML PIGGYBACK 400 MG IV ×3 (04:48→21:58)
[2022-07-27 05:48] LABS: Glucose, Whole Blood 156 mg/dL (60-115)
[2022-07-27 07:07] LABS: Hematocrit 32.6 % (42.0-52.0); Hemoglobin 10.6 g/dl (14.0-18.0); Mean Corpuscular HGB Conc 32.5 g/dl (31.0-36.0); Mean Corpuscular Hemoglobin 30.4 pg (27.0-33.0); Mean Corpuscular Volume 93.4 fL (80.0-98.0); Mean Platelet Volume 10.2 fL (9.4-12.4); Platelet Count 266 X10*3/uL (160-400); Red Blood Count 3.49 X10*6/uL (4.60-5.80); Red Cell Distribution Width 16.6 % (11.0-16.0)
[2022-07-27 07:23] LABS: Anion Gap 11 (12-20); Blood Urea Nitrogen 14 mg/dL (9-16); Calcium 7.8 mg/dL (8.4-10.2); Carbon Dioxide 22 mmol/L (22-29); Chloride 106 mmol/L (96-108); Creatinine Clr Calc Pharmacy 79.5; Estimated Glomerular Filt Rate > 60; Glucose Random 169 mg/dL (60-115); Potassium 4.2 mmol/L (3.3-5.1); Sodium 135 mmol/L (135-145)
[2022-07-27 07:51] LABS: Glucose, Whole Blood 148 mg/dL (60-115)
[2022-07-27] MEDS: Metoprolol Tartrate 50 MG TABLET PO ×2 (08:36→20:24)
--- NOTE | 2022-07-27 09:14 | PM.PNGS ---
Subjective Subjective Date of Service: 07/27/22 <Chichi Aguilar PA-C - Last Filed: 07/27/22 09:18> 07/27/22 <Andrey Mariee MD - Last Filed: 07/27/22 10:20> Interval history: Feels well this morning. Sore at RUQ. Tolerating solid diet this morning without N/V. Has not been OOB. <Chichi Aguilar PA-C - Last Filed: 07/27/22 09:18> Physical Exam Vital Signs: Vital Signs: Last Vital Signs Temp 97.5 F 07/27/22 07:50 Pulse 66 07/27/22 07:50 Resp 20 07/27/22 07:50 BP 121/60 07/27/22 07:50 Pulse Ox 92 07/27/22 07:50 O2 Del Method Room Air 07/27/22 07:50 O2 Flow Rate 4 07/27/22 03:11 BMI result Body Mass Index 25.1 <SADIQ Gonzalez Last Filed: 07/27/22 09:18> Const: General: comfortable, no acute distress and alert <Chichi Aguilar PA-C - Last Filed: 07/27/22 09:18> Resp: Effort & Inspection: normal respiratory effort <SADIQ Gonzalez Last Filed: 07/27/22 09:18> GI: Other: BITA drain with sanguineous output <SADIQ Gonzalez Last Filed: 07/27/22 09:18> Inspection: No distended and Yes incision (dressing c/d/i) <Chichi Aguilar PA-C - Last Filed: 07/27/22 09:18> Palpation (GI): Soft to palpation, Tenderness to palpation present (GI) (incisional), no guarding and not rigid <SADIQ Gonzalez Last Filed: 07/27/22 09:18> Percussion: Yes normal to percussion <SADIQ Gonzalez Last Filed: 07/27/22 09:18> Skin: General skin exam: no rashes or lesions noted <SADIQ Gonzalez Last Filed: 07/27/22 09:18> Neuro: General: moves all extremities <Chichi Aguilar PA-C - Last Filed: 07/27/22 09:18> Objective Data Active Medications Enoxaparin Sodium (Enoxaparin Sodium 80 Mg/0.8 Ml Syringe) 80 mg SUBCUT Q12H [facility] Last Admin: 07/25/22 20:53 Dose: 80 mg Documented By: ADAMS Glucose (Glucose Gel 15 Gm Gel..Gram.) 15 gm PO Q15M PRN; Protocol PRN Reason: per Hypoglycemia Standing Ord. Last Admin: 07/20/22 06:03 Dose: 15 gm Documented By: RANDY Hydromorphone HCl (Hydromorphone Hcl 0.5 Mg/0.5 Ml Syringe) 0.5 mg IVPUSH Q4H PRN; Protocol PRN Reason: Pain, Severe (Pain Scale 7-10) Last Admin: 07/27/22 03:19 Dose: 0.5 mg Documented By: ZOEY Dextrose (D10) 250 mls @ 750 mls/hr IV Q15M PRN; Protocol PRN Reason: per Hypoglycemia Standing Ord. Last Infusion: 07/21/22 00:15 Dose: 0 mls/hr Documented By: ISAIAH Ceftriaxone Sodium 1 gm/ (Sodium Chloride) 50 mls @ 100 mls/hr IV Q24H [facility] Last Admin: 07/26/22 16:08 Dose: Not Given Documented By: LUANA Non-Admin Reason: Off Unit: Surgery Metronidazole (Flagyl) 500 mg in 100 mls @ 100 mls/hr IV Q8H [facility] Last Infusion: 07/27/22 04:43 Dose: 0 mls/hr Documented By: ZOEY Amiodarone HCl 900 mg/ Sodium (Chloride) 518 mls @ 17.267 mls/hr IVCONT .Q24H [facility] Last Admin: 07/26/22 18:34 Dose: 0.5 mg/min, 17.27 mls/hr Documented By: LUANA Acetaminophen (Ofirmev) 1,000 mg in 100 mls @ 400 mls/hr IV Q6H [facility] Last Infusion: 07/27/22 05:23 Dose: 0 mls/hr Documented By: ZOEY Insulin Human Lispro (Insulin Lispro 100 Unit/Ml 3 Ml Vial) 0 unit SUBCUT Q6H [facility]; Protocol Last Admin: 07/27/22 08:39 Dose: Not Given Documented By: LUANA Non-Admin Reason: No Insulin Coverage Lorazepam (Lorazepam 0.5 Mg Tablet) 0.5 mg PO Q12H PRN PRN Reason: Anxiety Melatonin (Melatonin 3 Mg Tablet) 6 mg PO BEDTIME PRN PRN Reason: Insomnia Metoprolol Tartrate (Metoprolol Tartrate 50 Mg Tablet) 50 mg PO BID [facility]; Protocol Last Admin: 07/27/22 08:36 Dose: 50 mg Documented By: LUANA Ondansetron HCl (Ondansetron Hcl 4 Mg/2 Ml Vial) 4 mg IVPUSH Q8H PRN PRN Reason: Nausea and Vomiting Oxycodone HCl (Oxycodone Hcl Immed Release 5 Mg Tablet) 5 mg PO Q4H PRN PRN Reason: severe pain Last Admin: 07/27/22 08:35 Dose: 5 mg Documented By: LUANA Pharmacy Consult (Consult Rx Perform Med Rec) 1 each MISCELLANE ONCE PRN PRN Reason: Consult order Sodium Chloride (0.9 % Sodium Chloride Flush 3 Ml Syringe) 3 ml IVFLUSH [facility] Last Admin: 07/27/22 08:38 Dose: Not Given Documented By: LUANA Non-Admin Reason: IV Running <Chichi Aguilar PA-C - Last Filed: 07/27/22 09:18> Labs CBC & Chem 7: 07/27/22 06:19 07/27/22 06:19 <Chichi Aguilar PA-C - Last Filed: 07/27/22 09:18> Labs: Laboratory Results - last 24 hr 07/26/22 07/26/22 07/26/22 11:06 16:37 17:02 MCV 94.4 MCH 31.0 MCHC 32.8 RDW 16.8 H Plt Count 254 MPV 10.5 Immature Gran % (Auto) 1.3 H Neut % (Auto) 80.5 H Lymph % (Auto) 6.0 L [place] % (Auto) 11.9 H Eos % (Auto) 0.1 Baso % (Auto) 0.2 Lymph # (Auto) 1.0 L [place] # (Auto) 2.0 H Eos # (Auto) 0.0 Baso # (Auto) 0.0 Abs Immat Gran (auto) 0.21 H Absolute Neuts (auto) 13.4 H Absolute Nucleated RBC 0.000 Nucleated RBC % (auto) 0.0 Smear Tech's Comments VERIFIED Anion Gap Estim Creat Clear Calc Estimated GFR POC Glucose 160 H 187 H Random Glucose Calcium 07/26/22 07/27/22 07/27/22 19:30 00:00 05:41 MCV MCH MCHC RDW Plt Count MPV Immature Gran % (Auto) Neut % (Auto) Lymph % (Auto) [place] % (Auto) Eos % (Auto) Baso % (Auto) Lymph # (Auto) [place] # (Auto) Eos # (Auto) Baso # (Auto) Abs Immat Gran (auto) Absolute Neuts (auto) Absolute Nucleated RBC Nucleated RBC % (auto) Smear Tech's Comments Anion Gap Estim Creat Clear Calc Estimated GFR POC Glucose 212 H 196 H 156 H Random Glucose Calcium 07/27/22 07/27/22 07/27/22 06:19 06:19 07:47 MCV 93.4 MCH 30.4 MCHC 32.5 RDW 16.6 H Plt Count 266 MPV 10.2 Immature Gran % (Auto) Neut % (Auto) Lymph % (Auto) [place] % (Auto) Eos % (Auto) Baso % (Auto) Lymph # (Auto) [place] # (Auto) Eos # (Auto) Baso # (Auto) Abs Immat Gran (auto) Absolute Neuts (auto) Absolute Nucleated RBC 0.000 Nucleated RBC % (auto) 0.0 Smear Tech's Comments Anion Gap 11 L Estim Creat Clear Calc 79.5 Estimated GFR > 60 POC Glucose 148 H Random Glucose 169 H Calcium 7.8 L <Chichi Aguilar PA-C - Last Filed: 07/27/22 09:18> Procedures Date of Service Date of Service: 07/27/22 <Chichi Aguilar PA-C - Last Filed: 07/27/22 09:18> Progress Note: A&P Assessment and plan (1) S/P cholecystectomy: Status: Acute <Chichi Aguilar PA-C - Last Filed: 07/27/22 09:18> Assessment and Plan: appears to have adequate pain control BITA drain serosanguineous looks well pain management okay to advance diet as tolerated seen and examined independently agree with ALCIDES Aguilar <Andrey Mariee MD - Last Filed: 07/27/22 10:20> Assessment and Plan: POD #1 s/p attempted laparoscopic converted to open partial cholecystectomy. Found to have acute and chronic cholecystitis with significant persistent edema of the gallbladder wall, marked scarring surrounded the gallbladder with poor planes of dissection. He is doing fairly well post op. Tolerating diet. VSS. Abd exam benign with appropriate post op tenderness, dressings intact. BITA drain output nonbilious. Cont pain management. Keep BITA drain in place. Strongly encouraged OOB/ambulation and IS use. GAGANDEEP Liz. <Chichi Aguilar PA-C - Last Filed: 07/27/22 09:18> Time Spent With Patient Time: Total time managing care of this patient today ____ minutes. <Chichi Aguilar PA-C - Last Filed: 07/27/22 09:18> Quality Stroke Does the patient have a stroke diagnosis?: No <Chichi Aguilar PA-C - Last Filed: 07/27/22 09:18> VTE Prior VTE?: No <Chichi Aguilar PA-C - Last Filed: 07/27/22 09:18> VTE Risk Level:: Medical - moderate - high <SADIQ Gonzalez Last Filed: 07/27/22 09:18> VTE Device Contraindication: N/A - Device Ordered <Chichi Aguilar PA-C - Last Filed: 07/27/22 09:18> VTE Drug Contraindication: Treatment Not Indicated <SADIQ Gonzalez Last Filed: 07/27/22 09:18>
--- NOTE | 2022-07-27 09:20 | MHC.CM.PN ---
EMR REVIEWED, PER SURGICAL PT POD #1 OPEN PARTIAL CHOLEY, BITA DRAIN IN PLACE, PT REMAINS ON IV PAIN MEDS, NO PLAN FOR D/C AT THIS TIME, CM WILL CONT TO FOLLOW D/C NEEDS.
--- NOTE | 2022-07-27 10:59 | P.PNIM_ITS ---
Subjective Subjective Date of Service: 07/27/22 Interval History: s/p CCY yesterday, HR controlled pain is controlled Physical Exam Vital Signs: Vital Signs: Last Vital Signs Temp 97.5 F 07/27/22 07:50 Pulse 66 07/27/22 07:50 Resp 20 07/27/22 07:50 BP 121/60 07/27/22 07:50 Pulse Ox 92 07/27/22 07:50 O2 Del Method Room Air 07/27/22 07:50 O2 Flow Rate 4 07/27/22 03:11 BMI result Body Mass Index 25.1 Objective Data Active Medications Enoxaparin Sodium (Enoxaparin Sodium 80 Mg/0.8 Ml Syringe) 80 mg SUBCUT Q12H [facility] Last Admin: 07/25/22 20:53 Dose: 80 mg Documented By: ADAMS Glucose (Glucose Gel 15 Gm Gel..Gram.) 15 gm PO Q15M PRN; Protocol PRN Reason: per Hypoglycemia Standing Ord. Last Admin: 07/20/22 06:03 Dose: 15 gm Documented By: RANDY Hydromorphone HCl (Hydromorphone Hcl 0.5 Mg/0.5 Ml Syringe) 0.5 mg IVPUSH Q4H PRN; Protocol PRN Reason: Pain, Severe (Pain Scale 7-10) Last Admin: 07/27/22 03:19 Dose: 0.5 mg Documented By: ZOEY Dextrose (D10) 250 mls @ 750 mls/hr IV Q15M PRN; Protocol PRN Reason: per Hypoglycemia Standing Ord. Last Infusion: 07/21/22 00:15 Dose: 0 mls/hr Documented By: ISAIAH Ceftriaxone Sodium 1 gm/ (Sodium Chloride) 50 mls @ 100 mls/hr IV Q24H [facility] Last Admin: 07/26/22 16:08 Dose: Not Given Documented By: LUANA Non-Admin Reason: Off Unit: Surgery Metronidazole (Flagyl) 500 mg in 100 mls @ 100 mls/hr IV Q8H [facility] Last Infusion: 07/27/22 04:43 Dose: 0 mls/hr Documented By: ZOEY Amiodarone HCl 900 mg/ Sodium (Chloride) 518 mls @ 17.267 mls/hr IVCONT .Q24H [facility] Last Admin: 07/26/22 18:34 Dose: 0.5 mg/min, 17.27 mls/hr Documented By: LUANA Acetaminophen (Ofirmev) 1,000 mg in 100 mls @ 400 mls/hr IV Q6H [facility] Last Infusion: 07/27/22 05:23 Dose: 0 mls/hr Documented By: ZOEY Insulin Human Lispro (Insulin Lispro 100 Unit/Ml 3 Ml Vial) 0 unit SUBCUT Q6H [facility]; Protocol Last Admin: 07/27/22 08:39 Dose: Not Given Documented By: LUANA Non-Admin Reason: No Insulin Coverage Lorazepam (Lorazepam 0.5 Mg Tablet) 0.5 mg PO Q12H PRN PRN Reason: Anxiety Melatonin (Melatonin 3 Mg Tablet) 6 mg PO BEDTIME PRN PRN Reason: Insomnia Metoprolol Tartrate (Metoprolol Tartrate 50 Mg Tablet) 50 mg PO BID [facility]; Protocol Last Admin: 07/27/22 08:36 Dose: 50 mg Documented By: LUANA Ondansetron HCl (Ondansetron Hcl 4 Mg/2 Ml Vial) 4 mg IVPUSH Q8H PRN PRN Reason: Nausea and Vomiting Oxycodone HCl (Oxycodone Hcl Immed Release 5 Mg Tablet) 5 mg PO Q4H PRN PRN Reason: severe pain Last Admin: 07/27/22 08:35 Dose: 5 mg Documented By: LUANA Pharmacy Consult (Consult Rx Perform Med Rec) 1 each MISCELLANE ONCE PRN PRN Reason: Consult order Sodium Chloride (0.9 % Sodium Chloride Flush 3 Ml Syringe) 3 ml IVFLUSH [facility] Last Admin: 07/27/22 08:38 Dose: Not Given Documented By: LUANA Non-Admin Reason: IV Running Labs 07/27/22 06:19 07/27/22 06:19 Labs: Laboratory Results - last 24 hr 07/26/22 07/26/22 07/26/22 11:06 16:37 17:02 MCV 94.4 MCH 31.0 MCHC 32.8 RDW 16.8 H Plt Count 254 MPV 10.5 Immature Gran % (Auto) 1.3 H Neut % (Auto) 80.5 H Lymph % (Auto) 6.0 L [place] % (Auto) 11.9 H Eos % (Auto) 0.1 Baso % (Auto) 0.2 Lymph # (Auto) 1.0 L [place] # (Auto) 2.0 H Eos # (Auto) 0.0 Baso # (Auto) 0.0 Abs Immat Gran (auto) 0.21 H Absolute Neuts (auto) 13.4 H Absolute Nucleated RBC 0.000 Nucleated RBC % (auto) 0.0 Smear Tech's Comments VERIFIED Anion Gap Estim Creat Clear Calc Estimated GFR POC Glucose 160 H 187 H Random Glucose Calcium 07/26/22 07/27/22 07/27/22 19:30 00:00 05:41 MCV MCH MCHC RDW Plt Count MPV Immature Gran % (Auto) Neut % (Auto) Lymph % (Auto) [place] % (Auto) Eos % (Auto) Baso % (Auto) Lymph # (Auto) [place] # (Auto) Eos # (Auto) Baso # (Auto) Abs Immat Gran (auto) Absolute Neuts (auto) Absolute Nucleated RBC Nucleated RBC % (auto) Smear Tech's Comments Anion Gap Estim Creat Clear Calc Estimated GFR POC Glucose 212 H 196 H 156 H Random Glucose Calcium 07/27/22 07/27/22 07/27/22 06:19 06:19 07:47 MCV 93.4 MCH 30.4 MCHC 32.5 RDW 16.6 H Plt Count 266 MPV 10.2 Immature Gran % (Auto) Neut % (Auto) Lymph % (Auto) [place] % (Auto) Eos % (Auto) Baso % (Auto) Lymph # (Auto) [place] # (Auto) Eos # (Auto) Baso # (Auto) Abs Immat Gran (auto) Absolute Neuts (auto) Absolute Nucleated RBC 0.000 Nucleated RBC % (auto) 0.0 Smear Tech's Comments Anion Gap 11 L Estim Creat Clear Calc 79.5 Estimated GFR > 60 POC Glucose 148 H Random Glucose 169 H Calcium 7.8 L Assessment and Plan (1) Abnormal LFTs: Status: Acute (2) Acute calculous cholecystitis: Status: Acute Plan 77yo M with psoriatic arthritis, paroxysmal atrial fibrillation not on anticoagulation, diabetes mellitus type 2 on insulin, and 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, history of cholecystitis managed with cholecystostomy tube placed 04/30/22 brought in to [facility] by EMS due to generalized weakness admitted for severe sepsis due to cholecystitis # paroxysmal AF with RVR - converted on amiodarone drip on 07/24, PO after IV Loading dos - continue metoprolol - off anticoagulation post op, when ok with surgery restart Apixiban or levenox - Cardiology following, may need cardioversion if persists # severe sepsis due to acute cholecystitis - sepsis resolved, CT A/P +abd US consistent with acute cholecytiis - pip-iman 07/19-07/20, then ceftriaxone/metronidazole 07/20-present due to prior culture showing E coli, Klebseilla, and Bacteroides - MRCP not done due to PARTS CATALOGUER shunt - HIDA scan: nonvisualized GB, could be due to cystic duct obstruction [not due to the cholecystostomy tube as it is not even in the gallbladder] -Had Open CCY 07/26, drain left in with bloody discharge # DM2, A1c 7.9 - correction-dose lispro # psoriatic arthritis - hold etanercept + methotrexate # HTN - continue metoprolol; holding amlodipine, furosemide, and lisinopril due to sepsis # VTE ppx: compression device until Ok withs surgery to restart lovenox or Apixiban # dispo: TBD In my clinical judgment, the patient requires continued inpatient hospitalization for the following reasons: IV ABX, operative intervention Time Spent With Patient Time: Total time managing care of this patient today ____ minutes. Quality Stroke Does the patient have a stroke diagnosis?: No VTE Prior VTE?: No VTE Risk Level:: Medical - moderate - high VTE Device Contraindication: N/A - Device Ordered VTE Drug Contraindication: Treatment Not Indicated
--- NOTE | 2022-07-27 11:16 | P.PNCA_ITS ---
Subjective Subjective Date of Service: 07/27/22 Principal diagnosis: Paroxysmal atrial flutter Interval history: Patient underwent surgery yesterday, doing well from that perspective still having some pain at the operative site. In sinus rhythm today. Hemodynamically stable. Review of Systems Constitutional: Reports no additional constitutional complaints Cardiovascular: Reports no additional cardiovascular complaints Respiratory: Reports no additional respiratory complaints Reports system reviewed and no additional complaints, except as documented Physical Exam Vital Signs: Last Vital Signs Temp 97.5 F 07/27/22 07:50 Pulse 66 07/27/22 07:50 Resp 20 07/27/22 07:50 BP 121/60 07/27/22 07:50 Pulse Ox 92 07/27/22 07:50 O2 Del Method Room Air 07/27/22 07:50 O2 Flow Rate 4 07/27/22 03:11 BMI result Body Mass Index 25.1 Const General: cooperative, comfortable, no acute distress, alert and awake Nutritional Appearance: average body habitus Orientation/consciousness: patient oriented x3 Neck Neck: Yes trachea midline, Yes supple and Yes no JVD Resp Effort & Inspection: normal respiratory effort Auscultation: clear to auscultation bilaterally Cardio Rate: regular rate Rhythm: regular rhythm Heart sounds: S1 normal heart sound present, S2 normal heart sound present, no click, no gallops, no murmurs and no rubs Skin General skin exam: ecchymosis Neuro General: patient oriented x3 and no focal motor deficits Extrem General: Yes no clubbing, cyanosis or edema Objective Labs and Meds 07/27/22 06:19 07/27/22 06:19 Lab results: Laboratory Results - last 24 hr 07/26/22 07/26/22 07/26/22 16:37 17:02 19:30 WBC 16.6 H RBC 3.78 L Hgb 11.7 L Hct 35.7 L MCV 94.4 MCH 31.0 MCHC 32.8 RDW 16.8 H Plt Count 254 MPV 10.5 Immature Gran % (Auto) 1.3 H Neut % (Auto) 80.5 H Lymph % (Auto) 6.0 L [place] % (Auto) 11.9 H Eos % (Auto) 0.1 Baso % (Auto) 0.2 Lymph # (Auto) 1.0 L [place] # (Auto) 2.0 H Eos # (Auto) 0.0 Baso # (Auto) 0.0 Abs Immat Gran (auto) 0.21 H Absolute Neuts (auto) 13.4 H Absolute Nucleated RBC 0.000 Nucleated RBC % (auto) 0.0 Smear Tech's Comments VERIFIED Sodium Potassium Chloride Carbon Dioxide Anion Gap BUN Creatinine Estim Creat Clear Calc Estimated GFR POC Glucose 187 H 212 H Random Glucose Calcium 07/27/22 07/27/22 07/27/22 00:00 05:41 06:19 WBC 14.0 H RBC 3.49 L Hgb 10.6 L Hct 32.6 L MCV 93.4 MCH 30.4 MCHC 32.5 RDW 16.6 H Plt Count 266 MPV 10.2 Immature Gran % (Auto) Neut % (Auto) Lymph % (Auto) [place] % (Auto) Eos % (Auto) Baso % (Auto) Lymph # (Auto) [place] # (Auto) Eos # (Auto) Baso # (Auto) Abs Immat Gran (auto) Absolute Neuts (auto) Absolute Nucleated RBC 0.000 Nucleated RBC % (auto) 0.0 Smear Tech's Comments Sodium Potassium Chloride Carbon Dioxide Anion Gap BUN Creatinine Estim Creat Clear Calc Estimated GFR POC Glucose 196 H 156 H Random Glucose Calcium 07/27/22 07/27/22 06:19 07:47 WBC RBC Hgb Hct MCV MCH MCHC RDW Plt Count MPV Immature Gran % (Auto) Neut % (Auto) Lymph % (Auto) [place] % (Auto) Eos % (Auto) Baso % (Auto) Lymph # (Auto) [place] # (Auto) Eos # (Auto) Baso # (Auto) Abs Immat Gran (auto) Absolute Neuts (auto) Absolute Nucleated RBC Nucleated RBC % (auto) Smear Tech's Comments Sodium 135 Potassium 4.2 Chloride 106 Carbon Dioxide 22 Anion Gap 11 L BUN 14 Creatinine 0.79 Estim Creat Clear Calc 79.5 Estimated GFR > 60 POC Glucose 148 H Random Glucose 169 H Calcium 7.8 L Progress Note: A&P Assessment and plan (1) Paroxysmal atrial flutter: Status: Acute Assessment and Plan: Difficult control paroxysmal atrial flutter due to medical/surgical illness this elderly gentleman. Currently in sinus rhythm on amiodarone drip. Kingsley switch to amiodarone 400 mg b.i.d. loading dose for the next 10 days followed by 200 mg daily. Do not suspect that he will require amiodarone in the long run. Probably 4-6 weeks. Will follow-up as outpatient with after Holter monitor. A lso can start oral anticoagulation therapy once cleared by surgery. Will sign of the case and follow-up as outpatient. Thank you for allowing me to partake in his care Time Spent With Patient Time: Total time managing care of this patient today ____ minutes. Progress Note: Quality Stroke Does the patient have a stroke diagnosis?: No Procedures Date of Service Date of Service: 07/27/22
[2022-07-27] MEDS: Amiodarone HCL 200 MG TABLET 400 MG PO ×2 (11:43→20:24)
[2022-07-27 12:04] LABS: Glucose, Whole Blood 180 mg/dL (60-115)
[2022-07-27] MEDS: Docusate Sodium 100 MG CAPSULE PO ×2 (12:23→20:23)
[2022-07-27] MEDS: cefTRIAXone sodium 1 GM in 0.9 % Sodium Chloride 50 ML IV (13:19)
--- NOTE | 2022-07-27 13:49 | HO.POSTANES ---
Post Anesthesia Evaluation Post Anesthesia Evaluation Vital Signs: Vital Signs Temp Pulse Resp BP Pulse Ox O2 Del Method O2 Flow Rate 07/27/22 12:00 98.9 F 69 18 138/65 93 Nasal Cannula 2 07/27/22 07:50 97.5 F 66 20 121/60 92 Room Air 07/27/22 03:11 98.6 F 66 20 149/68 H 95 Nasal Cannula 4 Anesthesia: General Endotracheal-GETA Mental Status: Awake Pain Control: Satisfactory (soreness RUQ) Nausea/Vomiting: None Hydration: Adequate Anesthesia-Related Issues: No Anes. Related Issues
--- NOTE | 2022-07-27 15:50 | PM.EVENT ---
Event Note Date of Service: 07/27/22 Event Note: seen on afternoon rounds look comfortable stable VS BITA drain scanty old blood abd soft continue pain mgt diet as tolerated ok to restart anticoagulants tomorrow Time Spent With Patient Time: Total time managing care of this patient today ____ minutes.
[2022-07-27 16:16] LABS: Glucose, Whole Blood 265 mg/dL (60-115)
[2022-07-27] MEDS: Insulin Lispro 100 UNIT/ML 3 ML VIAL SUBCUT ×2 (16:58→21:59)
--- NOTE | 2022-07-27 17:27 | PC.NURSE ---
Patient is neurologically intact. Continues with ongoing pain to right abdominal surgical site, dressing CDI, BITA drain with serosanguineous drainage. Medicated for pain with prn oxycodone and 0.5mg IV Dilaudid as needed as well as scheduled tylenol. Repos for comfort pt educated on splinting when coughing. Desats into high 80's placed on 2L oxygen via nasal cannula for with good response. [place] cath dc'd this afternoon 1430 concentrated urine pt educated on need to increase fluid intake. IV amiodarone stopped this am oral dose started remains in NSR 60-70's on tele. Continues IV antibiotics per order. Will continue to monitor and report changes
[2022-07-27 20:24] LABS: Glucose, Whole Blood 207 mg/dL (60-115)
[2022-07-27] MEDS: 0.9 % Sodium Chloride Flush 3 ML SYRINGE IVFLUSH (20:24)
[2022-07-27 23:55] LABS: Glucose, Whole Blood 165 mg/dL (60-115)
[2022-07-28] MEDS: metroNIDAZOLE/NS 500 MG/100 ML PIGGYBACK 100 MG IV ×3 (02:47→17:57)
[2022-07-28] MEDS: oxyCODONE HCl Immed Release 5 MG TABLET PO ×3 (03:27→15:16)
[2022-07-28 04:00] VITALS: BP 119/57; PULSE 72; RESP 20; TEMP 37.6; O2SAT 93
[2022-07-28] MEDS: Acetaminophen 1,000 MG/100 ML PIGGYBACK 400 MG IV ×3 (05:13→16:56)
[2022-07-28 07:21] VITALS: BP 128/60; PULSE 68; RESP 16; TEMP 36.7; O2SAT 94
[2022-07-28 07:40] LABS: Glucose, Whole Blood 134 mg/dL (60-115)
[2022-07-28] MEDS: Docusate Sodium 100 MG CAPSULE PO ×2 (09:19→22:05)
[2022-07-28] MEDS: Amiodarone HCL 200 MG TABLET 400 MG PO ×2 (09:19→22:04)
[2022-07-28] MEDS: Enoxaparin Sodium 80 MG/0.8 ML SYRINGE SUBCUT ×2 (09:19→23:31)
[2022-07-28] MEDS: 0.9 % Sodium Chloride Flush 3 ML SYRINGE IVFLUSH ×3 (09:19→22:09)
[2022-07-28] MEDS: Metoprolol Tartrate 50 MG TABLET PO ×2 (09:19→22:10)
--- NOTE | 2022-07-28 09:49 | HO.PM.IMPN ---
Subjective Subjective Date of Service: 07/28/22 Interval History: s/p CCY yesterday, HR controlled pain is controlled Review of Systems General no headache, no dizziness, CVS no chest pain, no palpitation. Respiratory no cough, no sob. Gastrointestinal no nausea no vomiting, no abdominal pain no urinary urgency or frequency musculoskeletal no pain skin no rash Physical Exam Vital Signs: Vital Signs: Last Vital Signs Temp 98.1 F 07/28/22 07:21 Pulse 68 07/28/22 07:21 Resp 16 07/28/22 07:21 BP 128/60 07/28/22 07:21 Pulse Ox 94 07/28/22 07:21 O2 Del Method Nasal Cannula 07/28/22 07:21 O2 Flow Rate 2 07/28/22 07:21 BMI result Body Mass Index 25.1 Const: Other: General? awake alert x3, resting comfortably in no acute distress. Neck? supple, no JVD. CVS? irregulary irregular, Respiratory lungs clear to auscultation, no respiratory distress, no wheeze, no rhonchi. Gastrointestinal abdomen soft, no tenderness right upper quadrant, bowel sounds audible, no guarding , no rigidity, cholecystostomy tube in place with small bilious drainage Extremities no edema. Neuro nonfocal ,moving all 4 extremity speech clear. Skin no rash psych appropriate affect Objective Data Active Medications Amiodarone HCl (Amiodarone Hcl 200 Mg Tablet) 400 mg PO BID [facility] Last Admin: 07/28/22 09:19 Dose: 400 mg Documented By: FAHAD Docusate Sodium (Docusate Sodium 100 Mg Capsule) 100 mg PO BID [facility] Last Admin: 07/28/22 09:19 Dose: 100 mg Documented By: FAHAD Enoxaparin Sodium (Enoxaparin Sodium 80 Mg/0.8 Ml Syringe) 80 mg SUBCUT Q12H [facility] Last Admin: 07/28/22 09:19 Dose: 80 mg Documented By: FAHAD Glucose (Glucose Gel 15 Gm Gel..Gram.) 15 gm PO Q15M PRN; Protocol PRN Reason: per Hypoglycemia Standing Ord. Last Admin: 07/20/22 06:03 Dose: 15 gm Documented By: RANDY Hydromorphone HCl (Hydromorphone Hcl 0.5 Mg/0.5 Ml Syringe) 0.5 mg IVPUSH Q4H PRN; Protocol PRN Reason: Pain, Severe (Pain Scale 7-10) Last Admin: 07/27/22 11:27 Dose: 0.5 mg Documented By: LUANA Dextrose (D10) 250 mls @ 750 mls/hr IV Q15M PRN; Protocol PRN Reason: per Hypoglycemia Standing Ord. Last Infusion: 07/21/22 00:15 Dose: 0 mls/hr Documented By: ISAIAH Ceftriaxone Sodium 1 gm/ (Sodium Chloride) 50 mls @ 100 mls/hr IV Q24H [facility] Last Infusion: 07/27/22 14:43 Dose: 0 mls/hr Documented By: LUANA Metronidazole (Flagyl) 500 mg in 100 mls @ 100 mls/hr IV Q8H [facility] Last Admin: 07/28/22 09:23 Dose: 100 mls/hr Documented By: FAHAD Acetaminophen (Ofirmev) 1,000 mg in 100 mls @ 400 mls/hr IV Q6H [facility] Last Infusion: 07/28/22 05:42 Dose: 0 mls/hr Documented By: MARIVEL Insulin Human Lispro (Insulin Lispro 100 Unit/Ml 3 Ml Vial) 0 unit SUBCUT QIDACHS [facility]; Protocol Last Admin: 07/28/22 09:17 Dose: Not Given Documented By: FAHAD Non-Admin Reason: No Insulin Coverage Magnesium Hydroxide (Milk Of Magnesia 30 Ml Oral.Susp) 30 ml PO DAILY PRN PRN Reason: Constipation Melatonin (Melatonin 3 Mg Tablet) 6 mg PO BEDTIME PRN PRN Reason: Insomnia Metoprolol Tartrate (Metoprolol Tartrate 50 Mg Tablet) 50 mg PO BID [facility]; Protocol Last Admin: 07/28/22 09:19 Dose: 50 mg Documented By: FAHAD Ondansetron HCl (Ondansetron Hcl 4 Mg/2 Ml Vial) 4 mg IVPUSH Q8H PRN PRN Reason: Nausea and Vomiting Oxycodone HCl (Oxycodone Hcl Immed Release 5 Mg Tablet) 5 mg PO Q4H PRN PRN Reason: severe pain Last Admin: 07/28/22 09:21 Dose: 5 mg Documented By: FAHAD Pharmacy Consult (Consult Rx Perform Med Rec) 1 each MISCELLANE ONCE PRN PRN Reason: Consult order Sodium Chloride (0.9 % Sodium Chloride Flush 3 Ml Syringe) 3 ml IVFLUSH QSHIFT [facility] Last Admin: 07/28/22 09:19 Dose: 3 ml Documented By: FAHAD Labs 07/27/22 06:19 07/27/22 06:19 Labs: Laboratory Results - last 24 hr 07/27/22 07/27/22 07/27/22 11:53 15:58 19:45 POC Glucose 180 H 265 H 207 H 07/27/22 07/28/22 23:48 07:21 POC Glucose 165 H 134 H Assessment and Plan (1) S/P cholecystectomy: Status: Acute (2) Paroxysmal atrial flutter: Status: Acute Plan 77yo M with psoriatic arthritis, paroxysmal atrial fibrillation not on anticoagulation, diabetes mellitus type 2 on insulin, and 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, history of cholecystitis managed with cholecystostomy tube placed 04/30/22 brought in to [facility] by EMS due to generalized weakness admitted for severe sepsis due to cholecystitis # paroxysmal AF with RVR - converted on amiodarone drip on 07/24, PO after IV Loading dos - continue amio 400mg bid then switch to 200mg daily (08/06) - continue metoprolol - restarting lovenox, will switch to eliquis if no bleeding # severe sepsis due to acute cholecystitis - sepsis resolved, CT A/P +abd US consistent with acute cholecytiis - pip-iman 07/19-07/20, then ceftriaxone/metronidazole 07/20-present due to prior culture showing E coli, Klebseilla, and Bacteroides - MRCP not done due to ELECTRIC 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 ENGINEER shunt - HIDA scan: nonvisualized GB, could be due to cystic duct obstruction [not due to the cholecystostomy tube as it is not even in the gallbladder] -Had Open CCY 07/26, drain left in with bloody discharge # DM2, A1c 7.9 - correction-dose lispro # psoriatic arthritis - hold etanercept + methotrexate # HTN - continue metoprolol; holding furosemide, and lisinopril due to sepsis # VTE ppx: lovenox # dispo: TBD In my clinical judgment, the patient requires continued inpatient hospitalization for the following reasons: IV ABX, operative intervention with drain in place and close monitoring for bleeding Time Spent With Patient Time: Total time managing care of this patient today ____ minutes. Quality Stroke Does the patient have a stroke diagnosis?: No VTE Prior VTE?: No VTE Risk Level:: Medical - moderate - high VTE Device Contraindication: N/A - Device Ordered VTE Drug Contraindication: N/A - Med Ordered
--- NOTE | 2022-07-28 10:49 | P.PNGS_ITS ---
Subjective Subjective Date of Service: 07/28/22 Interval history: pt feeling well, tolerting po diet Physical Exam Vital Signs: Vital Signs: Last Vital Signs Temp 98.1 F 07/28/22 07:21 Pulse 68 07/28/22 07:21 Resp 16 07/28/22 07:21 BP 128/60 07/28/22 07:21 Pulse Ox 94 07/28/22 07:21 O2 Del Method Nasal Cannula 07/28/22 07:21 O2 Flow Rate 2 07/28/22 07:21 BMI result Body Mass Index 25.1 Const: General: cooperative and comfortable GI: Other: abdomen soft mild tenderness over incision active bowel sounds kellen with sero sang maybe some bile tinged frainage Objective Data Active Medications Amiodarone HCl (Amiodarone Hcl 200 Mg Tablet) 400 mg PO BID [facility] [place] Last Admin: 07/28/22 09:19 Dose: 400 mg Documented By: FAHAD Docusate Sodium (Docusate Sodium 100 Mg Capsule) 100 mg PO BID [facility] Last Admin: 07/28/22 09:19 Dose: 100 mg Documented By: FAHAD Enoxaparin Sodium (Enoxaparin Sodium 80 Mg/0.8 Ml Syringe) 80 mg SUBCUT Q12H [facility] [place] Last Admin: 07/28/22 09:19 Dose: 80 mg Documented By: FAHAD Enoxaparin Sodium (Enoxaparin Sodium 80 Mg/0.8 Ml Syringe) 80 mg 1 mg/kg (80 mg) SUBCUT Q12H [facility] [place] Glucose (Glucose Gel 15 Gm Gel..Gram.) 15 gm PO Q15M PRN; Protocol PRN Reason: per Hypoglycemia Standing Ord. Last Admin: 07/20/22 06:03 Dose: 15 gm Documented By: RANDY Hydromorphone HCl (Hydromorphone Hcl 0.5 Mg/0.5 Ml Syringe) 0.5 mg IVPUSH Q4H PRN; Protocol PRN Reason: Pain, Severe (Pain Scale 7-10) Last Admin: 07/27/22 11:27 Dose: 0.5 mg Documented By: LUANA Dextrose (D10) 250 mls @ 750 mls/hr IV Q15M PRN; Protocol PRN Reason: per Hypoglycemia Standing Ord. Last Infusion: 07/21/22 00:15 Dose: 0 mls/hr Documented By: ISAIAH Ceftriaxone Sodium 1 gm/ (Sodium Chloride) 50 mls @ 100 mls/hr IV Q24H [facility] Last Infusion: 07/27/22 14:43 Dose: 0 mls/hr Documented By: LUANA Metronidazole (Flagyl) 500 mg in 100 mls @ 100 mls/hr IV Q8H [facility] Last Infusion: 07/28/22 10:36 Dose: 0 mls/hr Documented By: FAHAD Acetaminophen (Ofirmev) 1,000 mg in 100 mls @ 400 mls/hr IV Q6H [facility] [place] Last Infusion: 07/28/22 05:42 Dose: 0 mls/hr Documented By: MARIVEL Insulin Human Lispro (Insulin Lispro 100 Unit/Ml 3 Ml Vial) 0 unit SUBCUT QIDACHS [facility] [place]; Protocol Last Admin: 07/28/22 09:17 Dose: Not Given Documented By: FAHAD Non-Admin Reason: No Insulin Coverage Magnesium Hydroxide (Milk Of Magnesia 30 Ml Oral.Susp) 30 ml PO DAILY PRN PRN Reason: Constipation Melatonin (Melatonin 3 Mg Tablet) 6 mg PO BEDTIME PRN PRN Reason: Insomnia Metoprolol Tartrate (Metoprolol Tartrate 50 Mg Tablet) 50 mg PO BID [facility]; Protocol Last Admin: 07/28/22 09:19 Dose: 50 mg Documented By: FAHAD Ondansetron HCl (Ondansetron Hcl 4 Mg/2 Ml Vial) 4 mg IVPUSH Q8H PRN PRN Reason: Nausea and Vomiting Oxycodone HCl (Oxycodone Hcl Immed Release 5 Mg Tablet) 5 mg PO Q4H PRN PRN Reason: severe pain Last Admin: 07/28/22 09:21 Dose: 5 mg Documented By: FAHAD Pharmacy Consult (Consult Rx Perform Med Rec) 1 each MISCELLANE ONCE PRN PRN Reason: Consult order Sodium Chloride (0.9 % Sodium Chloride Flush 3 Ml Syringe) 3 ml IVFLUSH QSHIFT [facility] Last Admin: 07/28/22 09:19 Dose: 3 ml Documented By: FAHAD Labs 07/27/22 06:19 07/27/22 06:19 Labs: Laboratory Results - last 24 hr 07/27/22 07/27/22 07/27/22 11:53 15:58 19:45 POC Glucose 180 H 265 H 207 H 07/27/22 07/28/22 23:48 07:21 POC Glucose 165 H 134 H Procedures Date of Service Date of Service: 07/28/22 Progress Note: A&P Assessment and plan (1) S/P cholecystectomy: Status: Acute Assessment and Plan: pod#2 sp open beth doing well advancing diet po pain meds kellen will need to stay in for a while- monitor output Time Spent With Patient Time: Total time managing care of this patient today ____ minutes. Quality Stroke Does the patient have a stroke diagnosis?: No VTE Prior VTE?: No VTE Risk Level:: Medical - moderate - high VTE Device Contraindication: N/A - Device Ordered VTE Drug Contraindication: N/A - Med Ordered
[2022-07-28 11:17] LABS: Glucose, Whole Blood 232 mg/dL (60-115)
[2022-07-28 11:18] VITALS: BP 124/61; PULSE 67; RESP 16; TEMP 36.9; O2SAT 91
[2022-07-28] MEDS: Insulin Lispro 100 UNIT/ML 3 ML VIAL SUBCUT ×3 (11:44→22:05)
[2022-07-28] MEDS: cefTRIAXone sodium 1 GM in 0.9 % Sodium Chloride 50 ML IV (12:23)
[2022-07-28 15:31] LABS: Glucose, Whole Blood 207 mg/dL (60-115)
[2022-07-28 16:00] VITALS: BP 167/72; PULSE 70; RESP 20; TEMP 36.7; O2SAT 90
[2022-07-28 20:00] VITALS: BP 157/71; PULSE 72; RESP 18; TEMP 37.1; O2SAT 89
[2022-07-28 21:25] LABS: Glucose, Whole Blood 190 mg/dL (60-115)
[2022-07-28] MEDS: HYDROmorphone HCl 0.5 MG/0.5 ML SYRINGE IVPUSH (22:05)
[2022-07-28 23:31] VITALS: BP 126/60; PULSE 63; RESP 20; TEMP 36.9; O2SAT 92
[2022-07-29] VITALS (8 sets, daily range): BP systolic 117–164; BP diastolic 57–74; PULSE 58–69; RESP 18–20; TEMP 36.6–37.2; O2SAT 90–93
[2022-07-29] MEDS: metroNIDAZOLE/NS 500 MG/100 ML PIGGYBACK 100 MG IV ×3 (02:43→18:33)
[2022-07-29 03:55] LABS: Glucose, Whole Blood 148 mg/dL (60-115)
[2022-07-29] MEDS: Acetaminophen 1,000 MG/100 ML PIGGYBACK 400 MG IV ×3 (04:27→16:30)
[2022-07-29] MEDS: oxyCODONE HCl Immed Release 5 MG TABLET PO ×4 (04:30→22:05)
[2022-07-29 06:31] LABS: MANUAL DIFF FLAG NO
[2022-07-29 06:52] LABS: Basophils Absolute Auto 0.1 X10*3/uL (0.0-0.2); Basophils Percent Auto 0.3 % (0-2); Eosinophils Absolute Auto 0.2 X10*3/uL (0.0-0.4); Eosinophils Percent Auto 1.3 % (0-4); Hematocrit 31.8 % (42.0-52.0); Hemoglobin 10.1 g/dl (14.0-18.0); Imm Gran Abs Auto 0.18 X10*3/uL (0.00-0.03); Imm Gran Pct Auto 1.1 % (0.0-0.4); Lymphocytes Absolute Auto 1.1 X10*3/uL (1.2-4.9); Lymphocytes Percent Auto 6.7 % (20-40); Mean Corpuscular HGB Conc 31.8 g/dl (31.0-36.0); Mean Corpuscular Hemoglobin 30.3 pg (27.0-33.0); Mean Corpuscular Volume 95.5 fL (80.0-98.0); Mean Platelet Volume 10.5 fL (9.4-12.4); Monocytes Absolute Auto 1.5 X10*3/uL (0.1-1.2); Neutrophils Absolute Auto 13.6 x10*3/uL (2.0-8.3); Neutrophils Percent Auto 81.6 % (45-73); Platelet Count 312 X10*3/uL (160-400); Red Blood Count 3.33 X10*6/uL (4.60-5.80); Red Cell Distribution Width 16.4 % (11.0-16.0); White Blood Count 16.6 X10*3/uL (4.8-10.8)
[2022-07-29 07:02] LABS: Anion Gap 12 (12-20); Blood Urea Nitrogen 15 mg/dL (9-16); Calcium 7.7 mg/dL (8.4-10.2); Carbon Dioxide 21 mmol/L (22-29); Chloride 105 mmol/L (96-108); Creatinine Clr Calc Pharmacy 89.7; Estimated Glomerular Filt Rate > 60; Glucose Random 131 mg/dL (60-115); Potassium 4.3 mmol/L (3.3-5.1); Sodium 134 mmol/L (135-145)
[2022-07-29 08:04] LABS: Glucose, Whole Blood 132 mg/dL (60-115)
[2022-07-29] MEDS: Enoxaparin Sodium 80 MG/0.8 ML SYRINGE SUBCUT (08:30)
[2022-07-29] MEDS: 0.9 % Sodium Chloride Flush 3 ML SYRINGE IVFLUSH ×3 (08:30→20:06)
[2022-07-29] MEDS: Amiodarone HCL 200 MG TABLET 400 MG PO ×2 (08:31→20:06)
[2022-07-29] MEDS: Docusate Sodium 100 MG CAPSULE PO ×2 (08:31→20:07)
[2022-07-29] MEDS: Metoprolol Tartrate 50 MG TABLET PO ×2 (08:31→21:51)
--- NOTE | 2022-07-29 10:07 | HO.PM.IMPN ---
Subjective Subjective Date of Service: 07/29/22 Interval History: no significant nursing events overnight pain is controlled Review of Systems General no headache, no dizziness, CVS no chest pain, no palpitation. Respiratory no cough, no sob. Gastrointestinal no nausea no vomiting, no abdominal pain no urinary urgency or frequency musculoskeletal no pain skin no rash Cardiovascular Cardiovascular: Reports no additional cardiovascular complaints Respiratory Respiratory: Reports no additional respiratory complaints Physical Exam Vital Signs: Vital Signs: Last Vital Signs Temp 97.9 F 07/29/22 07:59 Pulse 66 07/29/22 07:59 Resp 20 07/29/22 07:59 BP 138/65 07/29/22 07:59 Pulse Ox 90 L 07/29/22 07:59 O2 Del Method Room Air 07/29/22 07:59 O2 Flow Rate 2 07/28/22 23:31 BMI result Body Mass Index 25.1 Const: Other: General? awake alert x3, resting comfortably in no acute distress. Neck? supple, no JVD. CVS? irregulary irregular, Respiratory lungs clear to auscultation, no respiratory distress, no wheeze, no rhonchi. Gastrointestinal abdomen soft, no tenderness right upper quadrant, bowel sounds audible, no guarding , no rigidity, cholecystostomy tube in place with small bilious drainage Extremities no edema. Neuro nonfocal ,moving all 4 extremity speech clear. Skin no rash psych appropriate affect Objective Data Active Medications Amiodarone HCl (Amiodarone Hcl 200 Mg Tablet) 400 mg PO BID [facility] Last Admin: 07/29/22 08:31 Dose: 400 mg Documented By: FAHAD Docusate Sodium (Docusate Sodium 100 Mg Capsule) 100 mg PO BID [facility] Last Admin: 07/29/22 08:31 Dose: 100 mg Documented By: FAHAD Enoxaparin Sodium (Enoxaparin Sodium 80 Mg/0.8 Ml Syringe) 80 mg SUBCUT Q12H [facility] Last Admin: 07/28/22 23:31 Dose: 80 mg Documented By: MARIVEL Enoxaparin Sodium (Enoxaparin Sodium 80 Mg/0.8 Ml Syringe) 80 mg 1 mg/kg (80 mg) SUBCUT Q12H [facility] Last Admin: 07/29/22 08:30 Dose: 80 mg Documented By: FAHAD Glucose (Glucose Gel 15 Gm Gel..Gram.) 15 gm PO Q15M PRN; Protocol PRN Reason: per Hypoglycemia Standing Ord. Last Admin: 07/20/22 06:03 Dose: 15 gm Documented By: RANDY Hydromorphone HCl (Hydromorphone Hcl 0.5 Mg/0.5 Ml Syringe) 0.5 mg IVPUSH Q4H PRN; Protocol PRN Reason: Pain, Severe (Pain Scale 7-10) Last Admin: 07/28/22 22:05 Dose: 0.5 mg Documented By: MARIVEL Dextrose (D10) 250 mls @ 750 mls/hr IV Q15M PRN; Protocol PRN Reason: per Hypoglycemia Standing Ord. Last Infusion: 07/21/22 00:15 Dose: 0 mls/hr Documented By: ISAIAH Ceftriaxone Sodium 1 gm/ (Sodium Chloride) 50 mls @ 100 mls/hr IV Q24H [facility] Last Infusion: 07/28/22 13:24 Dose: 0 mls/hr Documented By: FAHAD Metronidazole (Flagyl) 500 mg in 100 mls @ 100 mls/hr IV Q8H [facility] Last Infusion: 07/29/22 03:53 Dose: 0 mls/hr Documented By: MARIVEL Acetaminophen (Ofirmev) 1,000 mg in 100 mls @ 400 mls/hr IV Q6H [facility] Last Infusion: 07/29/22 04:57 Dose: 0 mls/hr Documented By: MARIVEL Insulin Human Lispro (Insulin Lispro 100 Unit/Ml 3 Ml Vial) 0 unit SUBCUT QIDACHS [facility]; Protocol Last Admin: 07/29/22 08:29 Dose: Not Given Documented By: FAHAD Non-Admin Reason: No Insulin Coverage Magnesium Hydroxide (Milk Of Magnesia 30 Ml Oral.Susp) 30 ml PO DAILY PRN PRN Reason: Constipation Melatonin (Melatonin 3 Mg Tablet) 6 mg PO BEDTIME PRN PRN Reason: Insomnia Metoprolol Tartrate (Metoprolol Tartrate 50 Mg Tablet) 50 mg PO BID [facility]; Protocol Last Admin: 07/29/22 08:31 Dose: 50 mg Documented By: FAHAD Ondansetron HCl (Ondansetron Hcl 4 Mg/2 Ml Vial) 4 mg IVPUSH Q8H PRN PRN Reason: Nausea and Vomiting Oxycodone HCl (Oxycodone Hcl Immed Release 5 Mg Tablet) 5 mg PO Q4H PRN PRN Reason: severe pain Last Admin: 07/29/22 04:30 Dose: 5 mg Documented By: MARIVEL Pharmacy Consult (Consult Rx Perform Med Rec) 1 each MISCELLANE ONCE PRN PRN Reason: Consult order Sodium Chloride (0.9 % Sodium Chloride Flush 3 Ml Sy[facility]) [facility] Admin: 07/29/22 08:30 Dose: 3 ml Documented By: FAHAD Labs 07/29/22 05:44 07/29/22 05:44 Labs: Laboratory Results - last 24 hr 07/28/22 07/28/22 07/28/22 11:07 15:27 21:21 MCV MCH MCHC RDW Plt Count MPV Immature Gran % (Auto) Neut % (Auto) Lymph % (Auto) [place] % (Auto) Eos % (Auto) Baso % (Auto) Lymph # (Auto) [place] # (Auto) Eos # (Auto) Baso # (Auto) Abs Immat Gran (auto) Absolute Neuts (auto) Absolute Nucleated RBC Nucleated RBC % (auto) Anion Gap Estim Creat Clear Calc Estimated GFR POC Glucose 232 H 207 H 190 H Random Glucose Calcium 07/29/22 07/29/22 07/29/22 03:45 05:44 05:44 MCV 95.5 MCH 30.3 MCHC 31.8 RDW 16.4 H Plt Count 312 MPV 10.5 Immature Gran % (Auto) 1.1 H Neut % (Auto) 81.6 H Lymph % (Auto) 6.7 L [place] % (Auto) 9.0 Eos % (Auto) 1.3 Baso % (Auto) 0.3 Lymph # (Auto) 1.1 L [place] # (Auto) 1.5 H Eos # (Auto) 0.2 Baso # (Auto) 0.1 Abs Immat Gran (auto) 0.18 H Absolute Neuts (auto) 13.6 H Absolute Nucleated RBC 0.000 Nucleated RBC % (auto) 0.0 Anion Gap 12 Estim Creat Clear Calc 89.7 Estimated GFR > 60 POC Glucose 148 H Random Glucose 131 H Calcium 7.7 L 07/29/22 08:00 MCV MCH MCHC RDW Plt Count MPV Immature Gran % (Auto) Neut % (Auto) Lymph % (Auto) [place] % (Auto) Eos % (Auto) Baso % (Auto) Lymph # (Auto) [place] # (Auto) Eos # (Auto) Baso # (Auto) Abs Immat Gran (auto) Absolute Neuts (auto) Absolute Nucleated RBC Nucleated RBC % (auto) Anion Gap Estim Creat Clear Calc Estimated GFR POC Glucose 132 H Random Glucose Calcium Assessment and Plan (1) S/P cholecystectomy: Status: Acute Plan 77yo M with psoriatic arthritis, paroxysmal atrial fibrillation not on anticoagulation, diabetes mellitus type 2 on insulin, and normal pressure hydrocephalus with FACING [employer]IMMER shunt, history of cholecystitis managed with cholecystostomy tube placed 04/30/22 brought in to [facility] by EMS due to generalized weakness admitted for severe sepsis due to cholecystitis # paroxysmal AF with RVR - converted on amiodarone drip on 07/24, PO after IV Loading dos - continue amio 400mg bid until (08/06) then switch to 200mg daily - continue metoprolol - Initiated eliquis # severe sepsis due to acute cholecystitis - sepsis resolved, CT A/P +abd US consistent with acute cholecytiis - pip-iman 07/19-07/20, then ceftriaxone/metronidazole 07/20-present due to prior culture showing E coli, Klebseilla, and Bacteroides, ID consult pending - MRCP not done due to FACING END TRIMMER shunt - HIDA scan: nonvisualized GB, could be due to cystic duct obstruction [not due to the cholecystostomy tube as it is not even in the gallbladder] -Had Open CCY 07/26, drain left in with bloody discharge ; surgery following # DM2, A1c 7.9 - correction-dose lispro # psoriatic arthritis - hold etanercept + methotrexate # HTN - continue metoprolol and lisinopril # VTE ppx: eliquis # dispo: TBD In my clinical judgment, the patient requires continued inpatient hospitalization for the following reasons: IV ABX, operative intervention with drain in place and close monitoring for bleeding Time Spent With Patient Time: Total time managing care of this patient today ____ minutes. Quality Stroke Does the patient have a stroke diagnosis?: No VTE Prior VTE?: No VTE Risk Level:: Medical - moderate - high VTE Device Contraindication: N/A - Device Ordered VTE Drug Contraindication: N/A - Med Ordered
[2022-07-29] MEDS: Apixaban 5 MG TABLET PO ×2 (11:06→20:07)
[2022-07-29 11:41] LABS: Glucose, Whole Blood 163 mg/dL (60-115)
[2022-07-29] MEDS: lisinopriL 5 MG TABLET PO (12:25)
[2022-07-29] MEDS: cefTRIAXone sodium 1 GM in 0.9 % Sodium Chloride 50 ML IV (12:26)
[2022-07-29] MEDS: Insulin Lispro 100 UNIT/ML 3 ML VIAL SUBCUT ×3 (12:34→21:52)
[2022-07-29 16:26] LABS: Glucose, Whole Blood 232 mg/dL (60-115)
--- NOTE | 2022-07-29 19:36 | P.PNGS_ITS ---
Subjective Subjective Date of Service: 07/29/22 Interval history: feels well no issues little pain until moves eating well Physical Exam Vital Signs: Vital Signs: Last Vital Signs Temp 97.8 F 07/29/22 15:48 Pulse 58 07/29/22 11:24 Resp 18 07/29/22 15:48 BP 146/67 H 07/29/22 15:48 Pulse Ox 90 L 07/29/22 15:48 O2 Del Method Room Air 07/29/22 15:48 O2 Flow Rate 2 07/28/22 23:31 BMI result Body Mass Index 25.1 GI: Other: abdo incision looks good. kellen drain with 160 cc of serous fluid but with ?bile also Objective Data Active Medications Amiodarone HCl (Amiodarone Hcl 200 Mg Tablet) 400 mg PO BID [facility] Last Admin: 07/29/22 08:31 Dose: 400 mg Documented By: FAHAD Apixaban (Apixaban 5 Mg Tablet) 5 mg PO BID [facility] Last Admin: 07/29/22 11:06 Dose: 5 mg Documented By: FAHAD Docusate Sodium (Docusate Sodium 100 Mg Capsule) 100 mg PO BID [facility] Last Admin: 07/29/22 08:31 Dose: 100 mg Documented By: FAHAD Glucose (Glucose Gel 15 Gm Gel..Gram.) 15 gm PO Q15M PRN; Protocol PRN Reason: per Hypoglycemia Standing Ord. Last Admin: 07/20/22 06:03 Dose: 15 gm Documented By: RANDY Hydromorphone HCl (Hydromorphone Hcl 0.5 Mg/0.5 Ml Syringe) 0.5 mg IVPUSH Q4H PRN; Protocol PRN Reason: Pain, Severe (Pain Scale 7-10) Last Admin: 07/28/22 22:05 Dose: 0.5 mg Documented By: MARIVEL Dextrose (D10) 250 mls @ 750 mls/hr IV Q15M PRN; Protocol PRN Reason: per Hypoglycemia Standing Ord. Last Infusion: 07/21/22 00:15 Dose: 0 mls/hr Documented By: ISAIAH Ceftriaxone Sodium 1 gm/ (Sodium Chloride) 50 mls @ 100 mls/hr IV Q24H [facility] Last Infusion: 07/29/22 13:02 Dose: 0 mls/hr Documented By: FAHAD Metronidazole (Flagyl) 500 mg in 100 mls @ 100 mls/hr IV Q8H [facility] Last Admin: 07/29/22 18:33 Dose: 100 mls/hr Documented By: FAHAD Insulin Human Lispro (Insulin Lispro 100 Unit/Ml 3 Ml Vial) 0 unit SUBCUT QIDACHS [facility]; Protocol Last Admin: 07/29/22 16:29 Dose: 8 unit Documented By: FAHAD Lisinopril (Lisinopril 5 Mg Tablet) 5 mg PO DAILY [facility]; Protocol Last Admin: 07/29/22 12:25 Dose: 5 mg Documented By: FAHAD Magnesium Hydroxide (Milk Of Magnesia 30 Ml Oral.Susp) 30 ml PO DAILY PRN PRN Reason: Constipation Melatonin (Melatonin 3 Mg Tablet) 6 mg PO BEDTIME PRN PRN Reason: Insomnia Metoprolol Tartrate (Metoprolol Tartrate 50 Mg Tablet) 50 mg PO BID [facility]; Protocol Last Admin: 07/29/22 08:31 Dose: 50 mg Documented By: FAHAD Ondansetron HCl (Ondansetron Hcl 4 Mg/2 Ml Vial) 4 mg IVPUSH Q8H PRN PRN Reason: Nausea and Vomiting Oxycodone HCl (Oxycodone Hcl Immed Release 5 Mg Tablet) 5 mg PO Q4H PRN PRN Reason: severe pain Last Admin: 07/29/22 16:28 Dose: 5 mg Documented By: FAHAD Pharmacy Consult (Consult Rx Perform Med Rec) 1 each MISCELLANE ONCE PRN PRN Reason: Consult order Sodium Chloride (0.9 % Sodium Chloride Flush 3 Ml Syringe) 3 ml IVFLUSH QSHIFT [facility] Last Admin: 07/29/22 12:34 Dose: 3 ml Documented By: FAHAD Labs 07/29/22 05:44 07/29/22 05:44 Labs: Laboratory Results - last 24 hr 07/28/22 07/29/22 07/29/22 21:21 03:45 05:44 MCV 95.5 MCH 30.3 MCHC 31.8 RDW 16.4 H Plt Count 312 MPV 10.5 Immature Gran % (Auto) 1.1 H Neut % (Auto) 81.6 H Lymph % (Auto) 6.7 L [place] % (Auto) 9.0 Eos % (Auto) 1.3 Baso % (Auto) 0.3 Lymph # (Auto) 1.1 L [place] # (Auto) 1.5 H Eos # (Auto) 0.2 Baso # (Auto) 0.1 Abs Immat Gran (auto) 0.18 H Absolute Neuts (auto) 13.6 H Absolute Nucleated RBC 0.000 Nucleated RBC % (auto) 0.0 Anion Gap Estim Creat Clear Calc Estimated GFR POC Glucose 190 H 148 H Random Glucose Calcium 07/29/22 07/29/22 07/29/22 05:44 08:00 11:27 MCV MCH MCHC RDW Plt Count MPV Immature Gran % (Auto) Neut % (Auto) Lymph % (Auto) [place] % (Auto) Eos % (Auto) Baso % (Auto) Lymph # (Auto) [place] # (Auto) Eos # (Auto) Baso # (Auto) Abs Immat Gran (auto) Absolute Neuts (auto) Absolute Nucleated RBC Nucleated RBC % (auto) Anion Gap 12 Estim Creat Clear Calc 89.7 Estimated GFR > 60 POC Glucose 132 H 163 H Random Glucose 131 H Calcium 7.7 L 07/29/22 16:07 MCV MCH MCHC RDW Plt Count MPV Immature Gran % (Auto) Neut % (Auto) Lymph % (Auto) [place] % (Auto) Eos % (Auto) Baso % (Auto) Lymph # (Auto) [place] # (Auto) Eos # (Auto) Baso # (Auto) Abs Immat Gran (auto) Absolute Neuts (auto) Absolute Nucleated RBC Nucleated RBC % (auto) Anion Gap Estim Creat Clear Calc Estimated GFR POC Glucose 232 H Random Glucose Calcium Procedures Date of Service Date of Service: 07/29/22 Progress Note: A&P Assessment and plan (1) S/P cholecystectomy: Status: Acute Assessment and Plan: pt s/p lap beth - overall doing better cont with meds and po diet finish course of antibx cont with kellen drain -? bile drainage from fenestrated cholecystectomy??? Time Spent With Patient Time: Total time managing care of this patient today ____ minutes. Quality Stroke Does the patient have a stroke diagnosis?: No VTE Prior VTE?: No VTE Risk Level:: Medical - moderate - high VTE Device Contraindication: N/A - Device Ordered VTE Drug Contraindication: N/A - Med Ordered
[2022-07-29] MEDS: Melatonin 3 MG TABLET 6 MG PO (20:07)
[2022-07-29] MEDS: HYDROmorphone HCl 0.5 MG/0.5 ML SYRINGE IVPUSH (20:09)
[2022-07-29 21:00] LABS: Glucose, Whole Blood 207 mg/dL (60-115)
[2022-07-30] VITALS (9 sets, daily range): BP systolic 142–169; BP diastolic 58–77; PULSE 56–83; RESP 14–20; TEMP 36.3–37.7; O2SAT 91–94
[2022-07-30] MEDS: HYDROmorphone HCl 0.5 MG/0.5 ML SYRINGE IVPUSH ×3 (01:13→21:35)
[2022-07-30] MEDS: metroNIDAZOLE/NS 500 MG/100 ML PIGGYBACK 100 MG IV ×3 (04:21→20:29)
[2022-07-30 06:48] LABS: MANUAL DIFF FLAG NO
[2022-07-30 06:55] LABS: Basophils Absolute Auto 0.1 X10*3/uL (0.0-0.2); Basophils Percent Auto 0.4 % (0-2); Eosinophils Absolute Auto 0.3 X10*3/uL (0.0-0.4); Eosinophils Percent Auto 1.7 % (0-4); Hematocrit 31.8 % (42.0-52.0); Hemoglobin 10.2 g/dl (14.0-18.0); Imm Gran Abs Auto 0.26 X10*3/uL (0.00-0.03); Imm Gran Pct Auto 1.6 % (0.0-0.4); Lymphocytes Absolute Auto 1.2 X10*3/uL (1.2-4.9); Lymphocytes Percent Auto 7.2 % (20-40); Mean Corpuscular HGB Conc 32.1 g/dl (31.0-36.0); Mean Corpuscular Hemoglobin 30.5 pg (27.0-33.0); Mean Corpuscular Volume 95.2 fL (80.0-98.0); Mean Platelet Volume 10.2 fL (9.4-12.4); Monocytes Absolute Auto 1.3 X10*3/uL (0.1-1.2); Monocytes Percent Auto 7.8 % (2-11); Neutrophils Absolute Auto 13.3 x10*3/uL (2.0-8.3); Neutrophils Percent Auto 81.3 % (45-73); Platelet Count 371 X10*3/uL (160-400); Red Blood Count 3.34 X10*6/uL (4.60-5.80); Red Cell Distribution Width 16.5 % (11.0-16.0); White Blood Count 16.3 X10*3/uL (4.8-10.8)
[2022-07-30 07:22] LABS: Anion Gap 9 (12-20); Blood Urea Nitrogen 12 mg/dL (9-16); Calcium 7.9 mg/dL (8.4-10.2); Carbon Dioxide 24 mmol/L (22-29); Chloride 106 mmol/L (96-108); Creatinine Clr Calc Pharmacy 88.5; Estimated Glomerular Filt Rate > 60; Glucose Random 127 mg/dL (60-115); Potassium 4.4 mmol/L (3.3-5.1); Sodium 135 mmol/L (135-145)
[2022-07-30 07:57] LABS: Glucose, Whole Blood 145 mg/dL (60-115)
--- NOTE | 2022-07-30 09:43 | P.PNGS_ITS ---
Subjective Subjective Date of Service: 07/30/22 <Chichi Aguilar PA-C - Last Filed: 07/30/22 09:49> 07/30/22 <Andrey Mariee MD - Last Filed: 07/30/22 10:42> Interval history: Does not feel overall very well. C/o feeling weak. Has not been OOB. Tolerating diet. Denies nausea. <Chichi Aguilar PA-C - Last Filed: 07/30/22 09:49> Physical Exam Vital Signs: Vital Signs: Last Vital Signs Temp 99.8 F 07/30/22 07:38 Pulse 68 07/30/22 07:38 Resp 20 07/30/22 07:38 BP 165/73 H 07/30/22 07:38 Pulse Ox 93 07/30/22 07:38 O2 Del Method Room Air 07/30/22 07:38 O2 Flow Rate 2 07/28/22 23:31 BMI result Body Mass Index 25.1 <Chichi Aguilar PA-C - Last Filed: 07/30/22 09:49> Const: General: comfortable, no acute distress and alert <Chichi Aguilar PA-C - Last Filed: 07/30/22 09:49> GI: Other: BITA output nonbilious <SADIQ Gonzalez Last Filed: 07/30/22 09:49> Inspection: No distended and Yes incision (clean, timbo intact) <Chichi Aguilar PA-C - Last Filed: 07/30/22 09:49> Palpation (GI): Soft to palpation, Tenderness to palpation present (GI), no guarding and not rigid <Chcihi Aguilar PA-C - Last Filed: 07/30/22 09:49> Skin: Other: warm and dry left lower arm with erythema and edema at mid forearm, no fluctuance, area tender <SADIQ Gonzalez Last Filed: 07/30/22 09:49> General skin exam: no jaundice <SADIQ Gonzalez Last Filed: 07/30/22 09:49> Neuro: General: moves all extremities <SADIQ Gonzalez Last Filed: 07/30/22 09:49> Objective Data Active Medications Acetaminophen (Acetaminophen 325 Mg Tablet) 650 mg PO Q6H PRN PRN Reason: fever, pain Amiodarone HCl (Amiodarone Hcl 200 Mg Tablet) 400 mg [facility] BID [facility] Last Admin: 07/29/22 20:06 Dose: 400 mg Documented By: ELEONORA Apixaban (Apixaban 5 Mg Tablet) 5 mg PO BID [facility] Last Admin: 07/29/22 20:07 Dose: 5 mg Documented By: ELEONORA Docusate Sodium (Docusate Sodium 100 Mg Capsule) 100 mg PO BID [facility] Last Admin: 07/29/22 20:07 Dose: 100 mg Documented By: ELEONORA Glucose (Glucose Gel 15 Gm Gel..Gram.) 15 gm PO Q15M PRN; Protocol PRN Reason: per Hypoglycemia Standing Ord. Last Admin: 07/20/22 06:03 Dose: 15 gm Documented By: RADNY Hydromorphone HCl (Hydromorphone Hcl 0.5 Mg/0.5 Ml Syringe) 0.5 mg IVPUSH Q4H PRN; Protocol PRN Reason: Pain, Severe (Pain Scale 7-10) Last Admin: 07/30/22 01:13 Dose: 0.5 mg Documented By: ELEONORA Dextrose (D10) 250 mls @ 750 mls/hr IV Q15M PRN; Protocol PRN Reason: per Hypoglycemia Standing Ord. Last Infusion: 07/21/22 00:15 Dose: 0 mls/hr Documented By: ISAIAH Ceftriaxone Sodium 1 gm/ (Sodium Chloride) 50 mls @ 100 mls/hr IV Q24H [facility] Last Infusion: 07/29/22 13:02 Dose: 0 mls/hr Documented By: FAHAD Metronidazole (Flagyl) 500 mg in 100 mls @ 100 mls/hr IV Q8H [facility] Last Infusion: 07/30/22 05:27 Dose: 0 mls/hr Documented By: ELEONORA Insulin Human Lispro (Insulin Lispro 100 Unit/Ml 3 Ml Vial) 0 unit SUBCUT QIDACHS [facility]; Protocol Last Admin: 07/30/22 08:01 Dose: Not Given Documented By: RUSSELL Non-Admin Reason: No Insulin Coverage Lisinopril (Lisinopril 5 Mg Tablet) 5 mg PO DAILY [facility]; Protocol Last Admin: 07/29/22 12:25 Dose: 5 mg Documented By: FAHAD Magnesium Hydroxide (Milk Of Magnesia 30 Ml Oral.Susp) 30 ml PO DAILY PRN PRN Reason: Constipation Melatonin (Melatonin 3 Mg Tablet) 6 mg PO BEDTIME PRN PRN Reason: Insomnia Last Admin: 07/29/22 20:07 Dose: 6 mg Documented By: ELEONORA Metoprolol Tartrate (Metoprolol Tartrate 50 Mg Tablet) 50 mg PO BID [facility]; Protocol Last Admin: 07/29/22 21:51 Dose: 50 mg Documented By: ELEONORA Ondansetron HCl (Ondansetron Hcl 4 Mg/2 Ml Vial) 4 mg IVPUSH Q8H PRN PRN Reason: Nausea and Vomiting Oxycodone HCl (Oxycodone Hcl Immed Release 5 Mg Tablet) 5 mg PO Q4H PRN PRN Reason: severe pain Last Admin: 07/29/22 22:05 Dose: 5 mg Documented By: ELEONORA Pharmacy Consult (Consult Rx Perform Med Rec) 1 each MISCELLANE ONCE PRN PRN Reason: Consult order Sodium Chloride (0.9 % Sodium Chloride Flush 3 Ml Syringe) 3 ml IVFLUSH [facility] Last Admin: 07/29/22 20:06 Dose: 3 ml Documented By: ELEONORA <Chichi Aguilar PA-C - Last Filed: 07/30/22 09:49> Labs CBC & Chem 7: 07/30/22 06:01 07/30/22 06:01 <Chichi Aguilar PA-C - Last Filed: 07/30/22 09:49> Labs: Laboratory Results - last 24 hr 07/29/22 07/29/22 07/29/22 11:27 16:07 20:39 MCV MCH MCHC RDW Plt Count MPV Immature Gran % (Auto) Neut % (Auto) Lymph % (Auto) [place] % (Auto) Eos % (Auto) Baso % (Auto) Lymph # (Auto) [place] # (Auto) Eos # (Auto) Baso # (Auto) Abs Immat Gran (auto) Absolute Neuts (auto) Absolute Nucleated RBC Nucleated RBC % (auto) Anion Gap Estim Creat Clear Calc Estimated GFR POC Glucose 163 H 232 H 207 H Random Glucose Calcium 07/30/22 07/30/22 07/30/22 06:01 06:01 07:42 MCV 95.2 MCH 30.5 MCHC 32.1 RDW 16.5 H Plt Count 371 MPV 10.2 Immature Gran % (Auto) 1.6 H Neut % (Auto) 81.3 H Lymph % (Auto) 7.2 L [place] % (Auto) 7.8 Eos % (Auto) 1.7 Baso % (Auto) 0.4 Lymph # (Auto) 1.2 [place] # (Auto) 1.3 H Eos # (Auto) 0.3 Baso # (Auto) 0.1 Abs Immat Gran (auto) 0.26 H Absolute Neuts (auto) 13.3 H Absolute Nucleated RBC 0.000 Nucleated RBC % (auto) 0.0 Anion Gap 9 L Estim Creat Clear Calc 88.5 Estimated GFR > 60 POC Glucose 145 H Random Glucose 127 H Calcium 7.9 L <Chichi Aguilar PA-C - Last Filed: 07/30/22 09:49> Procedures Date of Service Date of Service: 07/30/22 <Chichi Aguilar PA-C - Last Filed: 07/30/22 09:49> Progress Note: A&P Assessment and plan (1) S/P cholecystectomy: Status: Acute <Chichi Aguilar PA-C - Last Filed: 07/30/22 09:49> (2) Gallstones: Status: Acute <Chichi Aguilar PA-C - Last Filed: 07/30/22 09:49> Assessment and Plan: Frail looking Appears deconditioned Abdomen soft and benign BITA drain dark serosanguineous Continue current care Diet as tolerated Seen and examined independently -agree with ALCIDES Aguilar <Andrey Mariee MD - Last Filed: 07/30/22 10:42> Assessment and Plan: POD #4 s/p attempted laparoscopic converted to open partial cholecystectomy. Found to have acute and chronic cholecystitis with significant persistent edema of the gallbladder wall, marked scarring surrounded the gallbladder with poor planes of dissection. C/o generalized weakness and fatigue. Pain control adequate, tolerating solid diet. VSS. Abd is benign with clean incision. BITA output is moderate but nonbilious appearing. Will remove prior to dc if output cont to decrease. Has pe rsistent leukocytosis- on flagyl/ceftriaxone. Will obtain PT consult for deconditioning. <Chichi Aguilar PA-C - Last Filed: 07/30/22 09:49> Time Spent With Patient Time: Total time managing care of this patient today ____ minutes. <Chichi Aguilar PA-C - Last Filed: 07/30/22 09:49> Quality Stroke Does the patient have a stroke diagnosis?: No <Chichi Aguilar PA-C - Last Filed: 07/30/22 09:49> VTE Prior VTE?: No <Chichi Aguilar PA-C - Last Filed: 07/30/22 09:49> VTE Risk Level:: Medical - moderate - high <SADIQ Gonzalez Last Filed: 07/30/22 09:49> VTE Device Contraindication: N/A - Device Ordered <SADIQ Gonzalez Last Filed: 07/30/22 09:49> VTE Drug Contraindication: N/A - Med Ordered <Chichi Aguilar PA-C - Last Filed: 07/30/22 09:49>
[2022-07-30] MEDS: Metoprolol Tartrate 50 MG TABLET PO ×2 (10:12→21:30)
[2022-07-30] MEDS: 0.9 % Sodium Chloride Flush 3 ML SYRINGE IVFLUSH ×3 (10:12→21:32)
[2022-07-30] MEDS: Apixaban 5 MG TABLET PO ×2 (10:12→21:29)
[2022-07-30] MEDS: Docusate Sodium 100 MG CAPSULE PO ×2 (10:12→21:30)
[2022-07-30] MEDS: lisinopriL 5 MG TABLET PO (10:12)
[2022-07-30] MEDS: Amiodarone HCL 200 MG TABLET 400 MG PO ×2 (10:12→21:29)
[2022-07-30] MEDS: oxyCODONE HCl Immed Release 5 MG TABLET PO (10:20)
[2022-07-30 11:46] LABS: Glucose, Whole Blood 250 mg/dL (60-115)
--- NOTE | 2022-07-30 11:46 | P.PNIM_ITS ---
Subjective Subjective Date of Service: 07/30/22 Interval History: s/p CCY on 07/26 AFIB with RVR, HR controlled pain is controlled feels generally very weak Toleratig solid diet Physical Exam Vital Signs: Vital Signs: Last Vital Signs Temp 98.5 F 07/30/22 11:10 Pulse 73 07/30/22 11:10 Resp 20 07/30/22 11:10 BP 169/77 H 07/30/22 11:10 Pulse Ox 93 07/30/22 11:10 O2 Del Method Room Air 07/30/22 11:10 O2 Flow Rate 2 07/28/22 23:31 BMI result Body Mass Index 25.1 Const: Other: General? awake alert x3, resting comfortably in no acute distress. Neck? supple, no JVD. CVS? irregulary irregular, Respiratory lungs clear to auscultation, no respiratory distress, no wheeze, no rhonchi. Gastrointestinal abdomen soft, no tenderness right upper quadrant, bowel sounds audible, no guarding , no rigidity, cholecystostomy tube in place with small bilious drainage Extremities no edema. Neuro nonfocal ,moving all 4 extremity speech clear. Skin no rash psych appropriate affect Objective Data Active Medications Acetaminophen (Acetaminophen 325 Mg Tablet) 650 mg PO Q6H PRN PRN Reason: fever, pain Amiodarone HCl (Amiodarone Hcl 200 Mg Tablet) 400 mg PO BID [facility] Last Admin: 07/30/22 10:12 Dose: 400 mg Documented By: RUSSELL Apixaban (Apixaban 5 Mg Tablet) 5 mg PO BID [facility] Last Admin: 07/30/22 10:12 Dose: 5 mg Documented By: RUSSELL Docusate Sodium (Docusate Sodium 100 Mg Capsule) 100 mg PO BID [facility] Last Admin: 07/30/22 10:12 Dose: 100 mg Documented By: RUSSELL Glucose (Glucose Gel 15 Gm Gel..Gram.) 15 gm PO Q15M PRN; Protocol PRN Reason: per Hypoglycemia Standing Ord. Last Admin: 07/20/22 06:03 Dose: 15 gm Documented By: RANDY Hydromorphone HCl (Hydromorphone Hcl 0.5 Mg/0.5 Ml Syringe) 0.5 mg IVPUSH Q4H PRN; Protocol PRN Reason: Pain, Severe (Pain Scale 7-10) Last Admin: 07/30/22 01:13 Dose: 0.5 mg Documented By: ELEONORA Dextrose (D10) 250 mls @ 750 mls/hr IV Q15M PRN; Protocol PRN Reason: per Hypoglycemia Standing Ord. Last Infusion: 07/21/22 00:15 Dose: 0 mls/hr Documented By: ISAIAH Ceftriaxone Sodium 1 gm/ (Sodium Chloride) 50 mls @ 100 mls/hr IV Q24H [facility] Last Infusion: 07/29/22 13:02 Dose: 0 mls/hr Documented By: FAHAD Metronidazole (Flagyl) 500 mg in 100 mls @ 100 mls/hr IV Q8H [facility] Last Admin: 07/30/22 10:12 Dose: 100 mls/hr Documented By: RUSSELL Insulin Human Lispro (Insulin Lispro 100 Unit/Ml 3 Ml Vial) 0 unit SUBCUT QIDACHS [facility]; Protocol Last Admin: 07/30/22 08:01 Dose: Not Given Documented By: RUSSELL Non-Admin Reason: No Insulin Coverage Lisinopril (Lisinopril 5 Mg Tablet) 5 mg PO DAILY [facility]; Protocol Last Admin: 07/30/22 10:12 Dose: 5 mg Documented By: RUSSELL Magnesium Hydroxide (Milk Of Magnesia 30 Ml Oral.Susp) 30 ml PO DAILY PRN PRN Reason: Constipation Melatonin (Melatonin 3 Mg Tablet) 6 mg PO BEDTIME PRN PRN Reason: Insomnia Last Admin: 07/29/22 20:07 Dose: 6 mg Documented By: ELEONORA Metoprolol Tartrate (Metoprolol Tartrate 50 Mg Tablet) 50 mg PO BID [facility]; Protocol Last Admin: 07/30/22 10:12 Dose: 50 mg Documented By: RUSSELL Ondansetron HCl (Ondansetron Hcl 4 Mg/2 Ml Vial) 4 mg IVPUSH Q8H PRN PRN Reason: Nausea and Vomiting Oxycodone HCl (Oxycodone Hcl Immed Release 5 Mg Tablet) 5 mg PO Q4H PRN PRN Reason: severe pain Last Admin: 07/30/22 10:20 Dose: 5 mg Documented By: RUSSELL Pharmacy Consult (Consult Rx Perform Med Rec) 1 each MISCELLANE ONCE PRN PRN Reason: Consult order Sodium Chloride (0.9 % Sodium Chloride Flush 3 Ml Syringe) 3 ml IVFLUSH QSHIFT [facility] Last Admin: 07/30/22 10:12 Dose: 3 ml Documented By: RUSSELL Labs 07/30/22 06:01 07/30/22 06:01 Labs: Laboratory Results - last 24 hr 07/29/22 07/29/22 07/30/22 16:07 20:39 06:01 MCV 95.2 MCH 30.5 MCHC 32.1 RDW 16.5 H Plt Count 371 MPV 10.2 Immature Gran % (Auto) 1.6 H Neut % (Auto) 81.3 H Lymph % (Auto) 7.2 L [place] % (Auto) 7.8 Eos % (Auto) 1.7 Baso % (Auto) 0.4 Lymph # (Auto) 1.2 [place] # (Auto) 1.3 H Eos # (Auto) 0.3 Baso # (Auto) 0.1 Abs Immat Gran (auto) 0.26 H Absolute Neuts (auto) 13.3 H Absolute Nucleated RBC 0.000 Nucleated RBC % (auto) 0.0 Anion Gap Estim Creat Clear Calc Estimated GFR POC Glucose 232 H 207 H Random Glucose Calcium 07/30/22 07/30/22 06:01 07:42 MCV MCH MCHC RDW Plt Count MPV Immature Gran % (Auto) Neut % (Auto) Lymph % (Auto) [place] % (Auto) Eos % (Auto) Baso % (Auto) Lymph # (Auto) [place] # (Auto) Eos # (Auto) Baso # (Auto) Abs Immat Gran (auto) Absolute Neuts (auto) Absolute Nucleated RBC Nucleated RBC % (auto) Anion Gap 9 L Estim Creat Clear Calc 88.5 Estimated GFR > 60 POC Glucose 145 H Random Glucose 127 H Calcium 7.9 L Assessment and Plan (1) S/P cholecystectomy: Status: Acute Plan 77yo M with psoriatic arthritis, paroxysmal atrial fibrillation not on anticoagulation, diabetes mellitus type 2 on insulin, and 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, history of cholecystitis managed with cholecystostomy tube placed 04/30/22 brought in to [facility] by EMS due to generalized weakness admitted for severe sepsis due to cholecystitis # paroxysmal AF with RVR - converted on amiodarone drip on 07/24 - continue amio 400mg bid until (08/06) then switch to 200mg daily - continue metoprolol - Eliquis for stroke prevention # severe sepsis due to acute cholecystitis - sepsis resolved, CT A/P +abd US consistent with acute cholecytiis - pip-iman 07/19-07/20, then ceftriaxone/metronidazole 07/20-present due to prior culture showing E coli, Klebseilla, and Bacteroides, ID consult pending - MRCP not done due to [employer] shunt - HIDA scan: nonvisualized GB, could be due to cystic duct obstruction [not due to the cholecystostomy tube as it is not even in the gallbladder] -Had Open CCY 07/26 coverted from Lap, drain left in with bloody discharge ; surgery following. Tolerating regular diet # DM2, A1c 7.9 - correction-dose lispro # psoriatic arthritis - hold etanercept + methotrexate # HTN - continue metoprolol and lisinopril # VTE ppx: eliquis # dispo: TBD, PT eval today for generalized weakness In my clinical judgment, the patient requires continued inpatient hospitalization for the following reasons: IV ABX, operative intervention with drain in place and close monitoring for bleeding Time Spent With Patient Time: Total time managing care of this patient today ____ minutes. Quality Stroke Does the patient have a stroke diagnosis?: No VTE Prior VTE?: No VTE Risk Level:: Medical - moderate - high VTE Device Contraindication: N/A - Device Ordered VTE Drug Contraindication: N/A - Med Ordered
[2022-07-30] MEDS: Insulin Lispro 100 UNIT/ML 3 ML VIAL SUBCUT ×3 (12:48→21:30)
--- NOTE | 2022-07-30 14:55 | PM.EVENT ---
Event Note Date of Service: 07/30/22 Event Note: Seen on afternoon rounds earlier Denies severe pain Says he just has low energy Abdomen remained soft BITA drain serosanguineous, dark, nonbilious Push oral intake Appears deconditioned Physical therapy Daughter Gris at bedside Time Spent With Patient Time: Total time managing care of this patient today ____ minutes.
--- NOTE | 2022-07-30 14:58 | MHC.CM.PN ---
[facility] REVIEWED AND PER MD ROUNDS, PT NOT MEDICALLY CLEARED FOR DC (POST SURGICAL ASSESSMENT, DRAIN) P.T. REC STR. NEISHA XAVIER IS PT FIRST CHOICE AND HAVE OFFERED A BED PENDING AUTH. DAUGHTER WILFREDO AT BEDSIDE AND IN AGREEMENT OF PLAN. WILL CONTINUE TO FOLLOW FOR DC PLAN.
--- NOTE | 2022-07-30 16:43 | P.CNID_ITS ---
History of Present Illness Data of Consult Service Date: 07/30/22 Requesting physician: Mike Joseph Primary Care Provider: Jesenia Bynum MD HPI Reason for consult: leukocytosis He presents with weakness and temperature to 102 on 07/19. He had elevated LFTs. CT scan shows gallbladder wall thickening and acute cholycystitis on 07/19. He had open partial (75%) cholecystectomy four days ago. He has beenon Flagyl and Ceftriaxone He has WBC elevation to 16,000. Review of Systems Review of Systems: Yes all other systems are reviewed and are negative [facility] Past Medical History Medical History (Updated 07/30/22 @ 16:46 by Nguyen Velazquez MD) Abnormal LFTs ADHD Back pain Cardiomegaly Diabetes Diabetic retinopathy Encounter for screening for other viral diseases Gallstones Gout Hypertension Immunosuppression due to drug therapy Leukocytosis 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, pen[facility]entiary, current use New onset a-fib Normal pressure hydrocephalus Obstructive sleep apnea Paroxysmal atrial fibrillation Protein malnutrition Psoriasis Psoriatic arthritis Restless leg syndrome Screening-pulmonary TB Family History Family history: reviewed and not pertinent Social History Social History Household Members: None Household Members Other:: lives alone Housing: House Do you presently have visiting nurse or other home services: No Alcohol intake: current Alcohol intake frequency: former alcohol drinker Patient Tobacco Use Status: Never used Tobacco e-Cigarette/Vaping Use: Never Used service: No Current occupational status: retired Current occupation: [employer] Allergies Allergy/AdvReac Type Severity Reaction Status Date / Time famotidine [From Pepcid] Allergy Intermediate Hallucinati Verified 06/18/22 08:39 ons Active Medications: Current Medications Acetaminophen (Acetaminophen 325 Mg Tablet) 650 mg PO Q6H PRN PRN Reason: fever, pain Amiodarone HCl (Amiodarone Hcl 200 Mg Tablet) 400 mg PO BID [facility] Last Admin: 07/30/22 10:12 Dose: 400 mg Apixaban (Apixaban 5 Mg Tablet) 5 mg PO BID [facility] Last Admin: 07/30/22 10:12 Dose: 5 mg Docusate Sodium (Docusate Sodium 100 Mg Capsule) 100 mg PO BID [facility] Last Admin: 07/30/22 10:12 Dose: 100 mg Glucose (Glucose Gel 15 Gm Gel..Gram.) 15 gm PO Q15M PRN; Protocol PRN Reason: per Hypoglycemia Standing Ord. Last Admin: 07/20/22 06:03 Dose: 15 gm Hydromorphone HCl (Hydromorphone Hcl 0.5 Mg/0.5 Ml Syringe) 0.5 mg IVPUSH Q4H PRN; Protocol PRN Reason: Pain, Severe (Pain Scale 7-10) Last Admin: 07/30/22 01:13 Dose: 0.5 mg Dextrose (D10) 250 mls @ 750 mls/hr IV Q15M PRN; Protocol PRN Reason: per Hypoglycemia Standing Ord. Last Infusion: 07/21/22 00:15 Dose: Infused Metronidazole (Flagyl) 500 mg in 100 mls @ 100 mls/hr IV Q8H [facility] Last Infusion: 07/30/22 11:54 Dose: Infused Insulin Human Lispro (Insulin Lispro 100 Unit/Ml 3 Ml Vial) 0 unit SUBCUT QIDACHS [facility]; Protocol Last Admin: 07/30/22 12:48 Dose: 6 unit Lisinopril (Lisinopril 5 Mg Tablet) 5 mg PO DAILY [facility]; Protocol Last Admin: 07/30/22 10:12 Dose: 5 mg Magnesium Hydroxide (Milk Of Magnesia 30 Ml Oral.Susp) 30 ml PO DAILY PRN PRN Reason: Constipation Melatonin (Melatonin 3 Mg Tablet) 6 mg PO BEDTIME PRN PRN Reason: Insomnia Last Admin: 07/29/22 20:07 Dose: 6 mg Metoprolol Tartrate (Metoprolol Tartrate 50 Mg Tablet) 50 mg PO BID [facility]; Protocol Last Admin: 07/30/22 10:12 Dose: 50 mg Ondansetron HCl (Ondansetron Hcl 4 Mg/2 Ml Vial) 4 mg IVPUSH Q8H PRN PRN Reason: Nausea and Vomiting Oxycodone HCl (Oxycodone Hcl Immed Release 5 Mg Tablet) 5 mg PO Q4H PRN PRN Reason: severe pain Last Admin: 07/30/22 10:20 Dose: 5 mg Pharmacy Consult (Consult Rx Perform Med Rec) 1 each MISCELLANE ONCE PRN PRN Reason: Consult order Sodium Chloride (0.9 % Sodium Chloride Flush 3 Ml Syringe) 3 ml IVFLUSH [facility] Last Admin: 07/30/22 10:12 Dose: 3 ml Home Medications Medication Instructions Recorded Confirmed Last Taken Type amlodipine 10 mg tablet 10 mg PO DAILY 11/22/21 07/19/22 04/25/22 History atorvastatin 20 mg tablet 20 mg PO DAILY 11/22/21 07/19/22 04/25/22 History cholecalciferol (vitamin D3) 125 125 mcg PO DAILY 11/22/21 07/19/22 04/25/22 History mcg (5,000 unit) capsule furosemide 40 mg tablet 40 mg PO DAILY 11/22/21 07/19/22 04/25/22 History metoprolol tartrate 50 mg tablet 50 mg PO BID 11/22/21 07/19/22 04/25/22 History insulin glargine 100 unit/mL (3 45 unit subcut BEDTIME 04/28/22 07/19/22 04/25/22 History mL) subcutaneous pen (Lantus Solostar U-100 Insulin) insulin lispro 100 unit/mL 0 sliding scale dose subcut TID 06/18/22 07/19/22 Unknown History subcutaneous pen (Humalog KwikPen (U-100) Insulin) lisinopril 5 mg tablet 5 mg PO DAILY 06/18/22 07/19/22 Unknown History metformin 500 mg tablet,extended 1,000 mg PO BID 06/18/22 07/19/22 Unknown History release 24 hr methotrexate sodium 2.5 mg tablet 20 mg PO QWEEK 06/18/22 07/19/22 Unknown History dapagliflozin 5 mg tablet (Farxiga) 5 mg PO DAILY 07/19/22 07/19/22 Unknown History glipizide 10 mg tablet, extended 10 mg PO BID 07/19/22 07/19/22 Unknown History release 24 hr Physical Exam Vital Signs: Vital Signs: Last Vital Signs Temp 98.5 F 07/30/22 16:00 Pulse 59 07/30/22 16:00 Resp 14 07/30/22 16:00 BP 146/66 H 07/30/22 16:00 Pulse Ox 93 07/30/22 16:00 O2 Del Method Room Air 07/30/22 16:00 O2 Flow Rate 2 07/28/22 23:31 BMI result Body Mass Index 25.1 Const: General: cooperative HEENT: Head: Yes normal to inspection Face and sinus: Yes normal facial e xam Mouth: Normal oral and palatal mucosa present Teeth and gingiva: dentition normal Eyes: General: appearance normal, both eyes and all related structures Pupils: Equal, round and reactive pupils present Resp: Effort & Inspection: normal respiratory effort Cardio: Rate: regular rate Rhythm: regular rhythm GI: Other: mild abdominal discomfort drain serosanguinous Palpation (GI): Soft to palpation and nontender : General: Yes no CVA tenderness Back/Spine/Pelvis: Back: no CVA tenderness Skin: General skin exam: no rashes or lesions noted Neuro: General: moves all extremities Cranial nerves: Yes Equal, round and reactive pupils present Extrem: General: Yes normal to inspection Psych: Appearance: grossly normal Results Labs 07/30/22 06:01 07/30/22 06:01 Labs: Short CBC 07/30/22 Range/Units 06:01 WBC 16.3 H (4.8-10.8) X10*3/uL Hgb 10.2 L (14.0-18.0) g/dl Hct 31.8 L (42.0-52.0) % Plt Count 371 (160-400) X10*3/uL BMP 07/30/22 06:01 Sodium 135 Potassium 4.4 Chloride 106 Carbon Dioxide 24 BUN 12 Creatinine 0.71 Calcium 7.9 L Microbiology Microbiology Results: Microbiology 07/19/22 15:05 Blood - Venous Blood Culture - Final No growth after 5 days. 07/19/22 15:05 Blood - Venous Blood Culture - Final No growth after 5 days. Assessment and Plan (1) Leukocytosis: Status: Acute Leukocytosis related to probable resolving gallbladder sepsis as scar tissue and not able to remove all so may take some time to resolve Ceftriaxone and flagyl covers most,but at risk for resistant gram negative bacteria as well. Plan Would consider change to Piperacillin/tazobactam tomorrow if still with WBC 16,000 or more cover possible resistant gram negative. Duration antibiotics to be determined but most likely stop when WBC under 14,000 . Time Spent With Patient Time: Total time managing care of this patient today ____ minutes.
[2022-07-30 17:09] LABS: Glucose, Whole Blood 173 mg/dL (60-115)
[2022-07-30 21:16] LABS: Glucose, Whole Blood 183 mg/dL (60-115)
[2022-07-31] VITALS (8 sets, daily range): BP systolic 122–173; BP diastolic 50–80; PULSE 55–65; RESP 14–20; TEMP 36.1–37.5; O2SAT 91–96
[2022-07-31] MEDS: oxyCODONE HCl Immed Release 5 MG TABLET PO ×3 (02:47→21:26)
[2022-07-31] MEDS: metroNIDAZOLE/NS 500 MG/100 ML PIGGYBACK 100 MG IV ×3 (03:10→18:38)
[2022-07-31 07:12] LABS: Glucose, Whole Blood 152 mg/dL (60-115)
[2022-07-31] MEDS: Insulin Lispro 100 UNIT/ML 3 ML VIAL SUBCUT ×4 (08:30→21:24)
[2022-07-31] MEDS: Metoprolol Tartrate 50 MG TABLET PO ×2 (08:31→21:24)
[2022-07-31] MEDS: Amiodarone HCL 200 MG TABLET 400 MG PO ×2 (08:31→21:24)
[2022-07-31] MEDS: Apixaban 5 MG TABLET PO ×2 (08:31→21:24)
[2022-07-31] MEDS: Docusate Sodium 100 MG CAPSULE PO ×2 (08:31→21:24)
[2022-07-31] MEDS: lisinopriL 5 MG TABLET PO (08:31)
[2022-07-31] MEDS: HYDROmorphone HCl 0.5 MG/0.5 ML SYRINGE IVPUSH ×2 (08:31→14:35)
[2022-07-31] MEDS: 0.9 % Sodium Chloride Flush 3 ML SYRINGE IVFLUSH ×3 (08:32→21:26)
--- NOTE | 2022-07-31 10:50 | HO.PM.IMPN ---
Subjective Subjective Date of Service: 07/31/22 Interval History: s/p CCY on 07/26 AFIB with RVR, HR controlled pain is controlled feels generally very weak Toleratig solid diet Physical Exam Vital Signs: Vital Signs: Last Vital Signs Temp 99.2 F 07/31/22 07:20 Pulse 64 07/31/22 07:20 Resp 20 07/31/22 07:20 BP 173/80 H 07/31/22 07:20 Pulse Ox 95 07/31/22 07:20 O2 Del Method Room Air 07/31/22 07:20 O2 Flow Rate 2 07/28/22 23:31 BMI result Body Mass Index 25.1 Const: Other: General? awake alert x3, resting comfortably in no acute distress. Neck? supple, no JVD. CVS? irregulary irregular, Respiratory lungs clear to auscultation, no respiratory distress, no wheeze, no rhonchi. Gastrointestinal abdomen soft, no tenderness right upper quadrant, bowel sounds audible, no guarding , no rigidity, cholecystostomy tube in place with small bilious drainage Extremities no edema. Neuro nonfocal ,moving all 4 extremity speech clear. Skin no rash psych appropriate affect Objective Data Active Medications Acetaminophen (Acetaminophen 325 Mg Tablet) 650 mg PO Q6H PRN PRN Reason: fever, pain Amiodarone HCl (Amiodarone Hcl 200 Mg Tablet) 400 mg PO BID [facility] Last Admin: 07/31/22 08:31 Dose: 400 mg Documented By: IAN Apixaban (Apixaban 5 Mg Tablet) 5 mg PO BID [facility] Last Admin: 07/31/22 08:31 Dose: 5 mg Documented By: IAN Docusate Sodium (Docusate Sodium 100 Mg Capsule) 100 mg PO BID [facility] Last Admin: 07/31/22 08:31 Dose: 100 mg Documented By: IAN Glucose (Glucose Gel 15 Gm Gel..Gram.) 15 gm PO Q15M PRN; Protocol PRN Reason: per Hypoglycemia Standing Ord. Last Admin: 07/20/22 06:03 Dose: 15 gm Documented By: RANDY Hydromorphone HCl (Hydromorphone Hcl 0.5 Mg/0.5 Ml Syringe) 0.5 mg IVPUSH Q4H PRN; Protocol PRN Reason: Pain, Severe (Pain Scale 7-10) Last Admin: 07/31/22 08:31 Dose: 0.5 mg Documented By: IAN Dextrose (D10) 250 mls @ 750 mls/hr IV Q15M PRN; Protocol PRN Reason: per Hypoglycemia Standing Ord. Last Infusion: 07/21/22 00:15 Dose: 0 mls/hr Documented By: ISAIAH Metronidazole (Flagyl) 500 mg in 100 mls @ 100 mls/hr IV Q8H [facility] Last Infusion: 07/31/22 04:26 Dose: 0 mls/hr Documented By: FELIBERTO Insulin Human Lispro (Insulin Lispro 100 Unit/Ml 3 Ml Vial) 0 unit SUBCUT QIDACHS [facility]; Protocol Last Admin: 07/31/22 08:30 Dose: 4 unit Documented By: IAN Lisinopril (Lisinopril 5 Mg Tablet) 5 mg PO DAILY [facility]; Protocol Last Admin: 07/31/22 08:31 Dose: 5 mg Documented By: IAN Magnesium Hydroxide (Milk Of Magnesia 30 Ml Oral.Susp) 30 ml PO DAILY PRN PRN Reason: Constipation Melatonin (Melatonin 3 Mg Tablet) 6 mg PO BEDTIME PRN PRN Reason: Insomnia Last Admin: 07/29/22 20:07 Dose: 6 mg Documented By: ELEONORA Metoprolol Tartrate (Metoprolol Tartrate 50 Mg Tablet) 50 mg PO BID [facility]; Protocol Last Admin: 07/31/22 08:31 Dose: 50 mg Documented By: IAN Ondansetron HCl (Ondansetron Hcl 4 Mg/2 Ml Vial) 4 mg IVPUSH Q8H PRN PRN Reason: Nausea and Vomiting Oxycodone HCl (Oxycodone Hcl Immed Release 5 Mg Tablet) 5 mg PO Q4H PRN PRN Reason: severe pain Last Admin: 07/31/22 02:47 Dose: 5 mg Documented By: FELIBERTO Pharmacy Consult (Consult Rx Perform Med Rec) 1 each MISCELLANE ONCE PRN PRN Reason: Consult order Sodium Chloride (0.9 % Sodium Chloride Flush 3 Ml Syringe) [facility] Last Admin: 07/31/22 08:32 Dose: 3 ml Documented By: HO.DOBROB Labs 07/30/22 06:01 07/30/22 06:01 Labs: Laboratory Results - last 24 hr 07/30/22 07/30/22 07/30/22 11:12 17:02 21:05 POC Glucose 250 H 173 H 183 H 07/31/22 06:59 POC Glucose 152 H Assessment and Plan (1) S/P cholecystectomy: Status: Acute Plan 77yo M with psoriatic arthritis, paroxysmal atrial fibrillation not on anticoagulation, diabetes mellitus type 2 on insulin, and normal pressure hydrocephalus with [place] [place] [place] shunt, history of cholecystitis managed with cholecystostomy tube placed 04/30/22 brought in to [facility] by EMS due to generalized weakness admitted for severe sepsis due to cholecystitis # paroxysmal AF with RVR - converted on amiodarone drip on 07/24 - continue amio 400mg bid until (08/06) then switch to 200mg daily - continue metoprolol - Eliquis for stroke prevention # severe sepsis due to acute cholecystitis - sepsis resolved, CT A/P +abd US consistent with acute cholecytiis - pip-iman 07/19-07/20, then ceftriaxone/metronidazole 07/20-present due to prior culture showing E coli, Klebseilla, and Bacteroides, ID consult pending - MRCP not done due to MILLER [place] FLOUR shunt - HIDA scan: nonvisualized GB, could be due to cystic duct obstruction [not due to the cholecystostomy tube as it is not even in the gallbladder] -Had Open CCY 07/26 coverted from Lap, drain left in with bloody discharge ; surgery following. Tolerating regular diet -WBC has been 16, recheck and if still high then change Abx to Zosyn # DM2, A1c 7.9 - correction-dose lispro # psoriatic arthritis - hold etanercept + methotrexate # HTN - continue metoprolol and lisinopril # VTE ppx: eliquis # dispo: TBD, PT eval today for generalized weakness In my clinical judgment, the patient requires continued inpatient hospitalization for the following reasons: IV ABX, operative intervention with drain in place and close monitoring for bleeding Ultimately will need short-term rehab. He is agreeable. Time Spent With Patient Time: Total time managing care of this patient today ____ minutes. Quality Stroke Does the patient have a stroke diagnosis?: No VTE Prior VTE?: No VTE Risk Level:: Medical - moderate - high VTE Device Contraindication: N/A - Device Ordered VTE Drug Contraindication: N/A - Med Ordered
[2022-07-31 11:18] LABS: Glucose, Whole Blood 226 mg/dL (60-115)
--- NOTE | 2022-07-31 11:50 | P.PNGS_ITS ---
Subjective Subjective Date of Service: 07/31/22 Interval history: no new complaints a little sore tolerating diet says he has low energy Physical Exam Vital Signs: Vital Signs: Last Vital Signs Temp 99.5 F 07/31/22 11:23 Pulse 55 07/31/22 11:23 Resp 20 07/31/22 11:23 BP 154/67 H 07/31/22 11:23 Pulse Ox 96 07/31/22 11:23 O2 Del Method Room Air 07/31/22 11:23 O2 Flow Rate 2 07/28/22 23:31 BMI result Body Mass Index 25.1 Const: Other: on recliner, appears frail General: comfortable and no acute distress Resp: Effort & Inspection: normal respiratory effort Cardio: Rate: regular rate GI: Other: BITA - old serosanguinous fluid, nonbilious Palpation (GI): Soft to palpation, not firm and nontender Objective Data Active Medications Acetaminophen (Acetaminophen 325 Mg Tablet) 650 mg PO Q6H PRN PRN Reason: fever, pain Amiodarone HCl (Amiodarone Hcl 200 Mg Tablet) 400 mg PO BID [facility] Last Admin: 07/31/22 08:31 Dose: 400 mg Documented By: IAN Apixaban (Apixaban 5 Mg Tablet) 5 mg PO BID [facility] Last Admin: 07/31/22 08:31 Dose: 5 mg Documented By: IAN Docusate Sodium (Docusate Sodium 100 Mg Capsule) 100 mg PO BID [facility] Last Admin: 07/31/22 08:31 Dose: 100 mg Documented By: IAN Glucose (Glucose Gel 15 Gm Gel..Gram.) 15 gm PO Q15M PRN; Protocol PRN Reason: per Hypoglycemia Standing Ord. Last Admin: 07/20/22 06:03 Dose: 15 gm Documented By: RANDY Hydromorphone HCl (Hydromorphone Hcl 0.5 Mg/0.5 Ml Syringe) 0.5 mg IVPUSH Q4H PRN; Protocol PRN Reason: Pain, Severe (Pain Scale 7-10) Last Admin: 07/31/22 08:31 Dose: 0.5 mg Documented By: IAN Dextrose (D10) 250 mls @ 750 mls/hr IV Q15M PRN; Protocol PRN Reason: per Hypoglycemia Standing Ord. Last Infusion: 07/21/22 00:15 Dose: 0 mls/hr Documented By: ISAIAH Metronidazole (Flagyl) 500 mg in 100 mls @ 100 mls/hr IV Q8H [facility] Last Infusion: 07/31/22 04:26 Dose: 0 mls/hr Documented By: FELIBERTO Insulin Human Lispro (Insulin Lispro 100 Unit/Ml 3 Ml Vial) 0 unit SUBCUT QIDACHS [facility]; Protocol Last Admin: 07/31/22 08:30 Dose: 4 unit Documented By: IAN Lisinopril (Lisinopril 5 Mg Tablet) 5 mg PO DAILY [facility]; Protocol Last Admin: 07/31/22 08:31 Dose: 5 mg Documented By: IAN Magnesium Hydroxide (Milk Of Magnesia 30 Ml Oral.Susp) 30 ml PO DAILY PRN PRN Reason: Constipation Melatonin (Melatonin 3 Mg Tablet) 6 mg PO BEDTIME PRN PRN Reason: Insomnia Last Admin: 07/29/22 20:07 Dose: 6 mg Documented By: ELEONORA Metoprolol Tartrate (Metoprolol Tartrate 50 Mg Tablet) 50 mg PO BID [facility]; Protocol Last Admin: 07/31/22 08:31 Dose: 50 mg Documented By: IAN Ondansetron HCl (Ondansetron Hcl 4 Mg/2 Ml Vial) 4 mg IVPUSH Q8H PRN PRN Reason: Nausea and Vomiting Oxycodone HCl (Oxycodone Hcl Immed Release 5 Mg Tablet) 5 mg PO Q4H PRN PRN Reason: severe pain Last Admin: 07/31/22 02:47 Dose: 5 mg Documented By: FELIBERTO Pharmacy Consult (Consult Rx Perform Med Rec) 1 each MISCELLANE ONCE PRN PRN Reason: Consult order Sodium Chloride (0.9 % Sodium Chloride Flush 3 Ml Syringe) 3 ml IVFLUSH QSHIFT [facility] Last Admin: 07/31/22 08:32 Dose: 3 ml Documented By: IAN Labs 07/30/22 06:01 07/30/22 06:01 Labs: Laboratory Results - last 24 hr 07/30/22 07/30/22 07/31/22 17:02 21:05 06:59 POC Glucose 173 H 183 H 152 H 07/31/22 11:06 POC Glucose 226 H Procedures Date of Service Date of Service: 07/31/22 Progress Note: A&P Assessment and plan (1) S/P cholecystectomy: Status: Acute Assessment and Plan: seems to be doing well postop PT plan to remove BITA prior to discharge abd soft and benign Time Spent With Patient Time: Total time managing care of this patient today ____ minutes. Quality Stroke Does the patient have a stroke diagnosis?: No VTE Prior VTE?: No VTE Risk Level:: Medical - moderate - high VTE Device Contraindication: N/A - Device Ordered VTE Drug Contraindication: N/A - Med Ordered
[2022-07-31 12:12] LABS: Hematocrit 32.8 % (42.0-52.0); Hemoglobin 10.5 g/dl (14.0-18.0); Mean Corpuscular Hemoglobin 30.3 pg (27.0-33.0); Mean Corpuscular Volume 94.5 fL (80.0-98.0); Mean Platelet Volume 9.6 fL (9.4-12.4); Platelet Count 415 X10*3/uL (160-400); Red Blood Count 3.47 X10*6/uL (4.60-5.80); Red Cell Distribution Width 16.4 % (11.0-16.0); White Blood Count 16.4 X10*3/uL (4.8-10.8)
[2022-07-31 16:26] LABS: Glucose, Whole Blood 215 mg/dL (60-115)
[2022-07-31 20:50] LABS: Glucose, Whole Blood 160 mg/dL (60-115)
[2022-08-01] MEDS: HYDROmorphone HCl 0.5 MG/0.5 ML SYRINGE IVPUSH (01:49)
[2022-08-01] MEDS: metroNIDAZOLE/NS 500 MG/100 ML PIGGYBACK 100 MG IV ×3 (02:00→18:31)
[2022-08-01 04:00] VITALS: BP 146/66; PULSE 56; RESP 19; TEMP 36.3; O2SAT 94
[2022-08-01 07:06] VITALS: BP 172/81; PULSE 66; RESP 20; TEMP 37.3; O2SAT 93
[2022-08-01 07:37] LABS: Glucose, Whole Blood 151 mg/dL (60-115)
--- NOTE | 2022-08-01 07:51 | PM.PNGS ---
Subjective Subjective Date of Service: 08/01/22 Interval history: feels well tolerating diet denies significant abdl pain Physical Exam Vital Signs: Vital Signs: Last Vital Signs Temp 99.2 F 08/01/22 07:06 Pulse 66 08/01/22 07:06 Resp 20 08/01/22 07:06 BP 172/81 H 08/01/22 07:06 Pulse Ox 93 08/01/22 07:06 O2 Del Method Room Air 08/01/22 07:06 O2 Flow Rate 2 07/28/22 23:31 BMI result Body Mass Index 25.1 Const: General: comfortable and no acute distress Cardio: Rhythm: abnormal rhythm GI: Other: BITA with dark serosanguinous output, nonbilious some staining around BITA site Palpation (GI): Soft to palpation, not firm and nontender Objective Data Active Medications Acetaminophen (Acetaminophen 325 Mg Tablet) 650 mg PO Q6H PRN PRN Reason: fever, pain Amiodarone HCl (Amiodarone Hcl 200 Mg Tablet) 400 mg PO BID [facility] Last Admin: 07/31/22 21:24 Dose: 400 mg Documented By: ZOEY Apixaban (Apixaban 5 Mg Tablet) 5 mg PO BID [facility] Last Admin: 07/31/22 21:24 Dose: 5 mg Documented By: ZOEY Docusate Sodium (Docusate Sodium 100 Mg Capsule) 100 mg PO BID [facility] Last Admin: 07/31/22 21:24 Dose: 100 mg Documented By: ZOEY Glucose (Glucose Gel 15 Gm Gel..Gram.) 15 gm PO Q15M PRN; Protocol PRN Reason: per Hypoglycemia Standing Ord. Last Admin: 07/20/22 06:03 Dose: 15 gm Documented By: RANDY Hydromorphone HCl (Hydromorphone Hcl 0.5 Mg/0.5 Ml Syringe) 0.5 mg IVPUSH Q4H PRN; Protocol PRN Reason: Pain, Severe (Pain Scale 7-10) Last Admin: 08/01/22 01:49 Dose: 0.5 mg Documented By: ZOEY Dextrose (D10) 250 mls @ 750 mls/hr IV Q15M PRN; Protocol PRN Reason: per Hypoglycemia Standing Ord. Last Infusion: 07/21/22 00:15 Dose: 0 mls/hr Documented By: ISAIAH Metronidazole (Flagyl) 500 mg in 100 mls @ 100 mls/hr IV Q8H [facility] Last Infusion: 08/01/22 03:05 Dose: 0 mls/hr Documented By: ZOEY Insulin Human Lispro (Insulin Lispro 100 Unit/Ml 3 Ml Vial) 0 unit SUBCUT QIDACHS [facility]; Protocol Last Admin: 07/31/22 21:24 Dose: 4 unit Documented By: ZOEY Lisinopril (Lisinopril 5 Mg Tablet) 5 mg PO DAILY [facility]; Protocol Last Admin: 07/31/22 08:31 Dose: 5 mg Documented By: BROMaria L Magnesium Hydroxide (Milk Of Magnesia 30 Ml Oral.Susp) 30 ml PO DAILY PRN PRN Reason: Constipation Melatonin (Melatonin 3 Mg Tablet) 6 mg PO BEDTIME PRN PRN Reason: Insomnia Last Admin: 07/29/22 20:07 Dose: 6 mg Documented By: ELEONORA Metoprolol Tartrate (Metoprolol Tartrate 50 Mg Tablet) 50 mg PO BID [facility]; Protocol Last Admin: 07/31/22 21:24 Dose: 50 mg Documented By: ZOEY Ondansetron HCl (Ondansetron Hcl 4 Mg/2 Ml Vial) 4 mg IVPUSH Q8H PRN PRN Reason: Nausea and Vomiting Oxycodone HCl (Oxycodone Hcl Immed Release 5 Mg Tablet) 5 mg PO Q4H PRN PRN Reason: severe pain Last Admin: 07/31/22 21:26 Dose: 5 mg Documented By: ZOEY Pharmacy Consult (Consult Rx Perform Med Rec) 1 each MISCELLANE ONCE PRN PRN Reason: Consult order Sodium Chloride (0.9 % Sodium Chloride Flush 3 Ml Syringe) 3 ml IVFLUSH QSHIFT [facility] Last Admin: 07/31/22 21:26 Dose: 3 ml Documented By: ZOEY Labs 07/31/22 11:50 07/30/22 06:01 Labs: Laboratory Results - last 24 hr 07/31/22 07/31/22 07/31/22 11:06 11:50 16:15 MCV 94.5 MCH 30.3 MCHC 32.0 RDW 16.4 H Plt Count 415 H MPV 9.6 Absolute Nucleated RBC 0.000 Nucleated RBC % (auto) 0.0 POC Glucose 226 H 215 H 07/31/22 08/01/22 20:47 07:04 MCV MCH MCHC RDW Plt Count MPV Absolute Nucleated RBC Nucleated RBC % (auto) POC Glucose 160 H 151 H Procedures Date of Service Date of Service: 08/01/22 Progress Note: A&P Assessment and plan (1) S/P cholecystectomy: Status: Acute Assessment and Plan: doing well postop good GI intake incision clean frail, deconditioned plan to dc BITA drain prior to discharge Time Spent With Patient Time: Total time managing care of this patient today ____ minutes. Quality Stroke Does the patient have a stroke diagnosis?: No VTE Prior VTE?: No VTE Risk Level:: Medical - moderate - high VTE Device Contraindication: N/A - Device Ordered VTE Drug Contraindication: N/A - Med Ordered
[2022-08-01] MEDS: Apixaban 5 MG TABLET PO ×2 (08:02→21:26)
[2022-08-01] MEDS: lisinopriL 5 MG TABLET PO (08:02)
[2022-08-01] MEDS: Docusate Sodium 100 MG CAPSULE PO ×2 (08:02→21:26)
[2022-08-01] MEDS: Insulin Lispro 100 UNIT/ML 3 ML VIAL SUBCUT ×4 (08:02→21:26)
[2022-08-01] MEDS: Metoprolol Tartrate 50 MG TABLET PO ×2 (08:02→21:26)
[2022-08-01] MEDS: Amiodarone HCL 200 MG TABLET 400 MG PO ×2 (08:02→21:26)
[2022-08-01] MEDS: 0.9 % Sodium Chloride Flush 3 ML SYRINGE IVFLUSH ×3 (08:03→21:26)
--- NOTE | 2022-08-01 08:45 | P.PNIM_ITS ---
Subjective Subjective Date of Service: 08/01/22 Interval History: s/p CCY on 07/26 AFIB with RVR resolved, in sinus pain is controlled feels generally very weak Toleratig solid diet feels constipated today Physical Exam Vital Signs: Vital Signs: Last Vital Signs Temp 99.2 F 08/01/22 07:06 Pulse 66 08/01/22 07:06 Resp 20 08/01/22 07:06 BP 172/81 H 08/01/22 07:06 Pulse Ox 93 08/01/22 07:06 O2 Del Method Room Air 08/01/22 07:06 O2 Flow Rate 2 07/28/22 23:31 BMI result Body Mass Index 25.1 Const: Other: General: AO X 3, no acute distress Resp: CTA bilateral CVS: S1,S2,RRR GI: +BS, NT, no distention, drain in place Skin: No rash Neuro: motor grossly intact Psych: appropriate affect Objective Data Active Medications Acetaminophen (Acetaminophen 325 Mg Tablet) 650 mg PO Q6H PRN PRN Reason: fever, pain Amiodarone HCl (Amiodarone Hcl 200 Mg Tablet) 400 mg PO BID [facility] Last Admin: 08/01/22 08:02 Dose: 400 mg Documented By: LESLIE Apixaban (Apixaban 5 Mg Tablet) 5 mg PO BID [facility] Last Admin: 08/01/22 08:02 Dose: 5 mg Documented By: LESLIE Docusate Sodium (Docusate Sodium 100 Mg Capsule) 100 mg PO BID [facility] Last Admin: 08/01/22 08:02 Dose: 100 mg Documented By: LESLIE Glucose (Glucose Gel 15 Gm Gel..Gram.) 15 gm PO Q15M PRN; Protocol PRN Reason: per Hypoglycemia Standing Ord. Last Admin: 07/20/22 06:03 Dose: 15 gm Documented By: RANDY Hydromorphone HCl (Hydromorphone Hcl 0.5 Mg/0.5 Ml Syringe) 0.5 mg IVPUSH Q4H PRN; Protocol PRN Reason: Pain, Severe (Pain Scale 7-10) Last Admin: 08/01/22 01:49 Dose: 0.5 mg Documented By: ZOEY Dextrose (D10) 250 mls @ 750 mls/hr IV Q15M PRN; Protocol PRN Reason: per Hypoglycemia Standing Ord. Last Infusion: 07/21/22 00:15 Dose: 0 mls/hr Documented By: ISAIAH Metronidazole (Flagyl) 500 mg in 100 mls @ 100 mls/hr IV Q8H [facility] Last Infusion: 08/01/22 03:05 Dose: 0 mls/hr Documented By: ZOEY Piperacillin Sod/Tazobactam (Sod 3.375 gm/ Sodium Chloride) 50 mls @ 100 mls/hr IV Q6H [facility] Insulin Human Lispro (Insulin Lispro 100 Unit/Ml 3 Ml Vial) 0 unit SUBCUT QIDACHS [facility]; Protocol Last Admin: 08/01/22 08:02 Dose: 4 unit Documented By: LESLIE Lisinopril (Lisinopril 5 Mg Tablet) 5 mg PO DAILY [facility]; Protocol Last Admin: 08/01/22 08:02 Dose: 5 mg Documented By: LESLIE Magnesium Hydroxide (Milk Of Magnesia 30 Ml Oral.Susp) 30 ml PO DAILY PRN PRN Reason: Constipation Melatonin (Melatonin 3 Mg Tablet) 6 mg PO BEDTIME PRN PRN Reason: Insomnia Last Admin: 07/29/22 20:07 Dose: 6 mg Documented By: ELEONORA Metoprolol Tartrate (Metoprolol Tartrate 50 Mg Tablet) 50 mg PO BID [facility]; Protocol Last Admin: 08/01/22 08:02 Dose: 50 mg Documented By: LESLIE Ondansetron HCl (Ondansetron Hcl 4 Mg/2 Ml Vial) 4 mg IVPUSH Q8H PRN PRN Reason: Nausea and Vomiting Oxycodone HCl (Oxycodone Hcl Immed Release 5 Mg Tablet) 5 mg PO Q4H PRN PRN Reason: severe pain Last Admin: 07/31/22 21:26 Dose: 5 mg Documented By: ZOEY Pharmacy Consult (Consult Rx Perform Med Rec) 1 each MISCELLANE ONCE PRN PRN Reason: Consult order Sodium Chloride (0.9 % Sodium Chloride Flush 3 Ml Syringe) 3 ml IVFLUSH QSHIFT [facility] Last Admin: 08/01/22 08:03 Dose: 3 ml Documented By: LESLIE Labs 07/31/22 11:50 07/30/22 06:01 Labs: Laboratory Results - last 24 hr 07/31/22 07/31/22 07/31/22 11:06 11:50 16:15 MCV 94.5 MCH 30.3 MCHC 32.0 RDW 16.4 H Plt Count 415 H MPV 9.6 Absolute Nucleated RBC 0.000 Nucleated RBC % (auto) 0.0 POC Glucose 226 H 215 H 07/31/22 08/01/22 20:47 07:04 MCV MCH MCHC RDW Plt Count MPV Absolute Nucleated RBC Nucleated RBC % (auto) POC Glucose 160 H 151 H Assessment and Plan (1) S/P cholecystectomy: Status: Acute Plan 77yo M with psoriatic arthritis, paroxysmal atrial fibrillation not on an ticoagulation, diabetes mellitus type 2 on insulin, and normal pressure hydrocephalus with [employer]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 by EMS due to generalized weakness admitted for severe sepsis due to cholecystitis # paroxysmal AF with RVR - converted on amiodarone drip on 07/24 - continue amio 400mg bid until (08/06) then switch to 200mg daily - continue metoprolol - Eliquis for stroke prevention # severe sepsis due to acute cholecystitis, sepsis resolved -Had Open CCY 07/26 coverted from Lap, drain left in with bloody discharge ; surgery following. Tolerating regular diet -WBC has been 16, surgery suggesting adding Zosyn back # DM2, A1c 7.9 - correction-dose lispro # psoriatic arthritis - hold etanercept + methotrexate, resume at dc # HTN--on higher sise - continue metoprolol 50 bid and increase lisinopril to 10 daily # constipation--bowel regimen # VTE ppx: eliquis # dispo: TBD, PT eval today for generalized weakness In my clinical judgment, the patient requires continued inpatient hospitalization for the following reasons: IV ABX, operative intervention with drain in place and close monitoring for bleeding Ultimately will need short-term rehab. He is agreeable No longer needs continue with cardiac monitoring. Time Spent With Patient Time: Total time managing care of this patient today ____ minutes. Quality Stroke Does the patient have a stroke diagnosis?: No VTE Prior VTE?: No VTE Risk Level:: Medical - moderate - high VTE Device Contraindication: N/A - Device Ordered VTE Drug Contraindication: N/A - Med Ordered
[2022-08-01] MEDS: Milk of Magnesia 30 ML ORAL.SUSP PO (09:44)
[2022-08-01] MEDS: Piperacillin Sodium/Tazobactam 3.375 GM in 0.9 % Sodium Chloride 50 ML IV ×3 (09:44→21:26)
--- NOTE | 2022-08-01 11:03 | MHC.CM.PN ---
EMR REVIEWED, PER HOSPITALIST PT CAN D/C ONCE CLEARED BY SURGICAL, BIAT DRAIN STILL IN PLACE AND PER SURGICAL WILL BE REMOVED PRIOR TO D/C, PT'S PREFEERED FACILITY IS [facility], CM WILL CONT TO FOLLOW D/C NEEDS.
[2022-08-01] MEDS: polyethylene glycoL 3350 17 GM POWD.PACK PO (11:20)
[2022-08-01 11:33] LABS: Glucose, Whole Blood 170 mg/dL (60-115)
[2022-08-01 15:39] VITALS: BP 147/68; PULSE 55; RESP 15; TEMP 36.1; O2SAT 96
[2022-08-01 16:10] LABS: Glucose, Whole Blood 153 mg/dL (60-115)
[2022-08-01 19:27] VITALS: BP 142/60; PULSE 67; RESP 14; TEMP 36.5; O2SAT 98
[2022-08-01 20:00] LABS: Glucose, Whole Blood 180 mg/dL (60-115)
[2022-08-02] VITALS: BP 143/67; PULSE 62; TEMP 36.4; O2SAT 96
[2022-08-02] MEDS: Piperacillin Sodium/Tazobactam 3.375 GM in 0.9 % Sodium Chloride 50 ML IV ×2 (03:52→08:20)
[2022-08-02] MEDS: oxyCODONE HCl Immed Release 5 MG TABLET PO ×3 (04:00→21:54)
[2022-08-02] MEDS: metroNIDAZOLE/NS 500 MG/100 ML PIGGYBACK 100 MG IV ×2 (04:02→11:05)
[2022-08-02 07:13] VITALS: BP 150/60; PULSE 55; RESP 20; TEMP 36.8; O2SAT 94
[2022-08-02 07:29] LABS: Glucose, Whole Blood 122 mg/dL (60-115)
[2022-08-02] MEDS: Metoprolol Tartrate 50 MG TABLET PO ×2 (08:20→21:48)
[2022-08-02] MEDS: Amiodarone HCL 200 MG TABLET 400 MG PO ×2 (08:20→21:48)
[2022-08-02] MEDS: Apixaban 5 MG TABLET PO ×2 (08:20→21:48)
[2022-08-02] MEDS: lisinopriL 10 MG TABLET PO (08:20)
[2022-08-02] MEDS: 0.9 % Sodium Chloride Flush 3 ML SYRINGE IVFLUSH ×3 (08:20→21:49)
--- NOTE | 2022-08-02 09:06 | PM.PNGS ---
Subjective Subjective Date of Service: 08/02/22 <Chichi Aguilar PA-C - Last Filed: 08/02/22 09:11> 08/02/22 <Andrey Mariee MD - Last Filed: 08/02/22 12:19> Interval history: Biggest complaint is feeling of weakness. Tolerating diet, denies abd pain. Now moving bowels. <Chichi Aguilar PA-C - Last Filed: 08/02/22 09:11> Physical Exam Vital Signs: Vital Signs: Last Vital Signs Temp 98.3 F 08/02/22 07:13 Pulse 55 08/02/22 07:13 Resp 20 08/02/22 07:13 BP 150/60 H 08/02/22 07:13 Pulse Ox 94 08/02/22 07:13 O2 Del Method Room Air 08/02/22 07:13 O2 Flow Rate 2 07/28/22 23:31 BMI result Body Mass Index 25.1 <Chichi Aguilar PA-C - Last Filed: 08/02/22 09:11> Const: General: comfortable, no acute distress and alert <Chichi Aguilar PA-C - Last Filed: 08/02/22 09:11> Orientation/consciousness: patient oriented x3 <SADIQ Gonzalez Last Filed: 08/02/22 09:11> Resp: Effort & Inspection: normal respiratory effort <Chichi Aguilar PA-C - Last Filed: 08/02/22 09:11> GI: Other: BITA with tea colored drainage, scant <Chichi Aguilar PA-C - Last Filed: 08/02/22 09:11> Inspection: No distended and Yes incision (clean) <Chichi Aguilar PA-C - Last Filed: 08/02/22 09:11> Palpation (GI): Soft to palpation, nontender, no guarding and not rigid <SADIQ Gonzalez Last Filed: 08/02/22 09:11> Skin: General skin exam: no rashes or lesions noted and no jaundice <SADIQ Gonzalez Last Filed: 08/02/22 09:11> Neuro: General: patient oriented x3 and moves all extremities <Chichi Aguilar PA-C - Last Filed: 08/02/22 09:11> Objective Data Active Medications Acetaminophen (Acetaminophen 325 Mg Tablet) 650 mg PO Q6H PRN PRN Reason: fever, pain Amiodarone HCl (Amiodarone Hcl 200 Mg Tablet) 400 mg PO BID [facility] Last Admin: 08/02/22 08:20 Dose: 400 mg Documented By: LESLIE Apixaban (Apixaban 5 Mg Tablet) 5 mg PO BID [facility] Last Admin: 08/02/22 08:20 Dose: 5 mg Documented By: LESLIE Docusate Sodium (Docusate Sodium 100 Mg Capsule) 100 mg PO BID [facility] Last Admin: 08/02/22 08:20 Dose: Not Given Documented By: LESLIE Non-Admin Reason: Patient Refused Glucose (Glucose Gel 15 Gm Gel..Gram.) 15 gm PO Q15M PRN; Protocol PRN Reason: per Hypoglycemia Standing Ord. Last Admin: 07/20/22 06:03 Dose: 15 gm Documented By: RANDY Hydromorphone HCl (Hydromorphone Hcl 0.5 Mg/0.5 Ml Syringe) 0.5 mg IVPUSH Q4H PRN; Protocol PRN Reason: Pain, Severe (Pain Scale 7-10) Last Admin: 08/01/22 01:49 Dose: 0.5 mg Documented By: ZOEY Dextrose (D10) 250 mls @ 750 mls/hr IV Q15M PRN; Protocol PRN Reason: per Hypoglycemia Standing Ord. Last Infusion: 07/21/22 00:15 Dose: 0 mls/hr Documented By: ISAIAH Metronidazole (Flagyl) 500 mg in 100 mls @ 100 mls/hr IV Q8H [facility] Last Infusion: 08/02/22 05:09 Dose: 0 mls/hr Documented By: ZOEY Piperacillin Sod/Tazobactam (Sod 3.375 gm/ Sodium Chloride) 50 mls @ 100 mls/hr IV Q6H [facility] Last Infusion: 08/02/22 09:06 Dose: 0 mls/hr Documented By: LESLIE Insulin Human Lispro (Insulin Lispro 100 Unit/Ml 3 Ml Vial) 0 unit SUBCUT QIDACHS [facility]; Protocol Last Admin: 08/02/22 07:32 Dose: Not Given Documented By: LESLIE Non-Admin Reason: No Insulin Coverage Lisinopril (Lisinopril 10 Mg Tablet) 10 mg PO DAILY [facility]; Protocol Last Admin: 08/02/22 08:20 Dose: 10 mg Documented By: LESLIE Magnesium Hydroxide (Milk Of Magnesia 30 Ml Oral.Susp) 30 ml PO DAILY PRN PRN Reason: Constipation Last Admin: 08/01/22 09:44 Dose: 30 ml Documented By: LESLIE Melatonin (Melatonin 3 Mg Tablet) 6 mg PO BEDTIME PRN PRN Reason: Insomnia Last Admin: 07/29/22 20:07 Dose: 6 mg Documented By: ELEONORA Metoprolol Tartrate (Metoprolol Tartrate 50 Mg Tablet) 50 mg PO BID [facility]; Protocol Last Admin: 08/02/22 08:20 Dose: 50 mg Documented By: LESLIE Ondansetron HCl (Ondansetron Hcl 4 Mg/2 Ml Vial) 4 mg IVPUSH Q8H PRN PRN Reason: Nausea and Vomiting Oxycodone HCl (Oxycodone Hcl Immed Release 5 Mg Tablet) 5 mg PO Q4H PRN PRN Reason: severe pain Last Admin: 08/02/22 08:27 Dose: 5 mg Documented By: LESLIE Pharmacy Consult (Consult Rx Perform Med Rec) 1 each MISCELLANE ONCE PRN PRN Reason: Consult order Polyethylene Glycol (Polyethylene Glycol 3350 17 Gm Powd.Pack) 17 gm PO DAILY PRN PRN Reason: Constipation Last Admin: 08/01/22 11:20 Dose: 17 gm Documented By: LESLIE Sodium Chloride (0.9 % Sodium Chloride Flush 3 Ml Syringe) 3 ml IVFLUSH [facility] Last Admin: 08/02/22 08:20 Dose: 3 ml Documented By: LESLIE <Chichi Aguilar PA-C - Last Filed: 08/02/22 09:11> Labs CBC & Chem 7: 07/31/22 11:50 07/30/22 06:01 <Chichi Aguilar PA-C - Last Filed: 08/02/22 09:11> Labs: Laboratory Results - last 24 hr 08/01/22 08/01/22 08/01/22 11:26 16:06 19:57 POC Glucose 170 H 153 H 180 H 08/02/22 07:12 POC Glucose 122 H <Chichi Aguilar PA-C - Last Filed: 08/02/22 09:11> Procedures Date of Service Date of Service: 08/02/22 <Chichi Aguilar PA-C - Last Filed: 08/02/22 09:11> Progress Note: A&P Assessment and plan (1) Leukocytosis: Status: Acute <Chichi Aguilar PA-C - Last Filed: 08/02/22 09:11> (2) S/P cholecystectomy: Status: Acute <Chichi Aguilar PA-C - Last Filed: 08/02/22 09:11> Assessment and Plan: continues to feel well goo oral intake abd soft BITA nonbilious doing well dc BTIA prior to discharge seen and examined independently <Andrey Mariee MD - Last Filed: 08/02/22 12:19> Assessment and Plan: POD #7 s/p attempted laparoscopic converted to open partial cholecystectomy. Found to have acute and chronic cholecystitis with significant persistent edema of the gallbladder wall, marked scarring surrounded the gallbladder with poor planes of dissection. Doing well overall post op however had persistent leukocytosis. Restarted on IV zosyn. Can repeat CBC this morning. If improved, transition to PO abx and stable for transfer to [facility] for strengthening. BITA drain remains nonbilious and will remove prior. Patient comfortable with plan. <Chichi Aguilar PA-C - Last Filed: 08/02/22 09:11> Time Spent With Patient Time: Total time managing care of this patient today ____ minutes. <Chichi Aguilar PA-C - Last Filed: 08/02/22 09:11> Quality Stroke Does the patient have a stroke diagnosis?: No <Chichi Aguilar PA-C - Last Filed: 08/02/22 09:11> VTE Prior VTE?: No <SADIQ Gonzalez Last Filed: 08/02/22 09:11> VTE Risk Level:: Medical - moderate - high <Chichi Aguilar PA-C - Last Filed: 08/02/22 09:11> VTE Device Contraindication: N/A - Device Ordered <SADIQ Gonzalez Last Filed: 08/02/22 09:11> VTE Drug Contraindication: N/A - Med Ordered <Chichi Aguilar PA-C - Last Filed: 08/02/22 09:11>
[2022-08-02 09:27] LABS: MANUAL DIFF FLAG NO
[2022-08-02 09:31] LABS: Basophils Percent Auto 0.3 % (0-2); Eosinophils Absolute Auto 0.3 X10*3/uL (0.0-0.4); Eosinophils Percent Auto 2.4 % (0-4); Hematocrit 33.4 % (42.0-52.0); Hemoglobin 10.7 g/dl (14.0-18.0); Imm Gran Abs Auto 0.28 X10*3/uL (0.00-0.03); Imm Gran Pct Auto 2.5 % (0.0-0.4); Lymphocytes Absolute Auto 1.2 X10*3/uL (1.2-4.9); Mean Corpuscular Hemoglobin 30.1 pg (27.0-33.0); Mean Corpuscular Volume 94.1 fL (80.0-98.0); Mean Platelet Volume 9.4 fL (9.4-12.4); Monocytes Absolute Auto 0.9 X10*3/uL (0.1-1.2); Monocytes Percent Auto 8.2 % (2-11); Neutrophils Absolute Auto 8.3 x10*3/uL (2.0-8.3); Neutrophils Percent Auto 75.6 % (45-73); Platelet Count 433 X10*3/uL (160-400); Red Blood Count 3.55 X10*6/uL (4.60-5.80); Red Cell Distribution Width 16.3 % (11.0-16.0)
[2022-08-02 11:36] LABS: Glucose, Whole Blood 257 mg/dL (60-115)
--- NOTE | 2022-08-02 11:55 | P.PNIM_ITS ---
Subjective Subjective Date of Service: 08/02/22 Interval History: s/p CCY on 07/26 doing, had bm and feels more comfortable, Physical Exam Vital Signs: Vital Signs: Last Vital Signs Temp 98.3 F 08/02/22 07:13 Pulse 55 08/02/22 07:13 Resp 20 08/02/22 07:13 BP 150/60 H 08/02/22 07:13 Pulse Ox 94 08/02/22 07:13 O2 Del Method Room Air 08/02/22 07:13 O2 Flow Rate 2 07/28/22 23:31 BMI result Body Mass Index 25.1 Const: Other: General: AO X 3, no acute distress Resp: CTA bilateral CVS: S1,S2,RRR GI: +BS, NT, no distention, drain in place Skin: No rash Neuro: motor grossly intact Psych: appropriate affect Objective Data Active Medications Acetaminophen (Acetaminophen 325 Mg Tablet) 650 mg PO Q6H PRN PRN Reason: fever, pain Amiodarone HCl (Amiodarone Hcl 200 Mg Tablet) 400 mg PO BID [facility] Last Admin: 08/02/22 08:20 Dose: 400 mg Documented By: LESLIE Apixaban (Apixaban 5 Mg Tablet) 5 mg PO BID [facility] Last Admin: 08/02/22 08:20 Dose: 5 mg Documented By: LESLIE Docusate Sodium (Docusate Sodium 100 Mg Capsule) 100 mg PO BID [facility] Last Admin: 08/02/22 08:20 Dose: Not Given Documented By: LESLIE Non-Admin Reason: Patient Refused Glucose (Glucose Gel 15 Gm Gel..Gram.) 15 gm PO Q15M PRN; Protocol PRN Reason: per Hypoglycemia Standing Ord. Last Admin: 07/20/22 06:03 Dose: 15 gm Documented By: RANDY Hydromorphone HCl (Hydromorphone Hcl 0.5 Mg/0.5 Ml Syringe) 0.5 mg IVPUSH Q4H PRN; Protocol PRN Reason: Pain, Severe (Pain Scale 7-10) Last Admin: 08/01/22 01:49 Dose: 0.5 mg Documented By: ZOEY Dextrose (D10) 250 mls @ 750 mls/hr IV Q15M PRN; Protocol PRN Reason: per Hypoglycemia Standing Ord. Last Infusion: 07/21/22 00:15 Dose: 0 mls/hr Documented By: ISAIAH Metronidazole (Flagyl) 500 mg in 100 mls @ 100 mls/hr IV Q8H [facility] Last Admin: 08/02/22 11:05 Dose: 100 mls/hr Documented By: LESLIE Piperacillin Sod/Tazobactam (Sod 3.375 gm/ Sodium Chloride) 50 mls @ 100 mls/hr IV Q6H [facility] Last Infusion: 08/02/22 09:06 Dose: 0 mls/hr Documented By: LESLIE Insulin Human Lispro (Insulin Lispro 100 Unit/Ml 3 Ml Vial) 0 unit SUBCUT QIDACHS [facility]; Protocol Last Admin: 08/02/22 07:32 Dose: Not Given Documented By: LESLIE Non-Admin Reason: No Insulin Coverage Lisinopril (Lisinopril 10 Mg Tablet) 10 mg PO DAILY [facility]; Protocol Last Admin: 08/02/22 08:20 Dose: 10 mg Documented By: LESLIE Magnesium Hydroxide (Milk Of Magnesia 30 Ml Oral.Susp) 30 ml PO DAILY PRN PRN Reason: Constipation Last Admin: 08/01/22 09:44 Dose: 30 ml Documented By: LESLIE Melatonin (Melatonin 3 Mg Tablet) 6 mg PO BEDTIME PRN PRN Reason: Insomnia Last Admin: 07/29/22 20:07 Dose: 6 mg Documented By: ELEONORA Metoprolol Tartrate (Metoprolol Tartrate 50 Mg Tablet) 50 mg PO BID [facility]; Protocol Last Admin: 08/02/22 08:20 Dose: 50 mg Documented By: LESLIE Ondansetron HCl (Ondansetron Hcl 4 Mg/2 Ml Vial) 4 mg IVPUSH Q8H PRN PRN Reason: Nausea and Vomiting Oxycodone HCl (Oxycodone Hcl Immed Release 5 Mg Tablet) 5 mg PO Q4H PRN PRN Reason: severe pain Last Admin: 08/02/22 08:27 Dose: 5 mg Documented By: LESLIE Pharmacy Consult (Consult Rx Perform Med Rec) 1 each MISCELLANE ONCE PRN PRN Reason: Consult order Polyethylene Glycol (Polyethylene Glycol 3350 17 Gm Powd.Pack) 17 gm PO DAILY PRN PRN Reason: Constipation Last Admin: 08/01/22 11:20 Dose: 17 gm Documented By: LESLIE Sodium Chloride (0.9 % Sodium Chloride Flush 3 Ml Syringe) 3 ml IVFLUSH QSHIFT [facility] Last Admin: 08/02/22 08:20 Dose: 3 ml Documented By: LESLIE Labs 08/02/22 09:19 07/30/22 06:01 Labs: Laboratory Results - last 24 hr 08/01/22 08/01/22 08/02/22 16:06 19:57 07:12 MCV MCH MCHC RDW Plt Count MPV Immature Gran % (Auto) Neut % (Auto) Lymph % (Auto) [place] % (Auto) Eos % (Auto) Baso % (Auto) Lymph # (Auto) [place] # (Auto) Eos # (Auto) Baso # (Auto) Abs Immat Gran (auto) Absolute Neuts (auto) Absolute Nucleated RBC Nucleated RBC % (auto) POC Glucose 153 H 180 H 122 H 08/02/22 08/02/22 09:19 11:18 MCV 94.1 MCH 30.1 MCHC 32.0 RDW 16.3 H Plt Count 433 H MPV 9.4 Immature Gran % (Auto) 2.5 H Neut % (Auto) 75.6 H Lymph % (Auto) 11.0 L [place] % (Auto) 8.2 Eos % (Auto) 2.4 Baso % (Auto) 0.3 Lymph # (Auto) 1.2 [place] # (Auto) 0.9 Eos # (Auto) 0.3 Baso # (Auto) 0.0 Abs Immat Gran (auto) 0.28 H Absolute Neuts (auto) 8.3 Absolute Nucleated RBC 0.000 Nucleated RBC % (auto) 0.0 POC Glucose 257 H Assessment and Plan (1) S/P cholecystectomy: Status: Acute Plan 77yo M with psoriatic arthritis, paroxysmal atrial fibrillation not on anticoagulation, diabetes mellitus type 2 on insulin, and normal pressure hydrocephalus with 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 Tolerating regular diet -WBC has been 16, restarted back on Zosyn 08/01, WBC 11 today, change to PO Augmentin, DC Shelbi has been on it since 07/21 # DM2, A1c 7.9 - correction-dose lispro # psoriatic arthritis - hold etanercept + methotrexate, resume at dc # HTN--on higher sise - continue metoprolol 50 bid and increase lisinopril to 10 daily # constipation-- resolved, continue bowel regiment # VTE ppx: eliquis # dispo: TBD, PT eval today for generalized weakness In my clinical judgment, the patient requires continued inpatient hospitalization for the following reasons: IV ABX, operative intervention with drain in place and close monitoring for bleeding Ultimately will need short-term rehab. He is agreeable No longer needs continue with cardiac monitoring. To rehab when bed available. Time Spent With Patient Time: Total time managing care of this patient today ____ minutes. Quality Stroke Does the patient have a stroke diagnosis?: No VTE Prior VTE?: No VTE Risk Level:: Medical - moderate - high VTE Device Contraindication: N/A - Device Ordered VTE Drug Contraindication: N/A - Med Ordered
[2022-08-02] MEDS: Amoxicillin/Potassium Clav 875 MG TABLET PO (12:11)
[2022-08-02] MEDS: Insulin Lispro 100 UNIT/ML 3 ML VIAL SUBCUT ×2 (12:11→17:12)
[2022-08-02 16:00] VITALS: BP 148/67; PULSE 59; RESP 20; TEMP 36.5; O2SAT 94
[2022-08-02 16:38] LABS: Glucose, Whole Blood 151 mg/dL (60-115)
[2022-08-02 20:02] LABS: Glucose, Whole Blood 101 mg/dL (60-115)
[2022-08-02] MEDS: Melatonin 3 MG TABLET 6 MG PO (21:54)
[2022-08-03] VITALS: BP 134/64; PULSE 53; RESP 18; TEMP 37.1
[2022-08-03] MEDS: Amoxicillin/Potassium Clav 875 MG TABLET PO ×2 (00:32→10:25)
[2022-08-03 07:38] LABS: Glucose, Whole Blood 134 mg/dL (60-115)
[2022-08-03 07:55] VITALS: BP 161/74; PULSE 58; RESP 20; TEMP 37; O2SAT 92
--- NOTE | 2022-08-03 08:47 | PM.PNGS ---
Subjective Subjective Date of Service: 08/03/22 <Chichi Aguilar PA-C - Last Filed: 08/03/22 08:52> 08/03/22 <Andrey Mariee MD - Last Filed: 08/03/22 14:38> Interval history: Feels depressed. <SADIQ Gonzalez Last Filed: 08/03/22 08:52> Physical Exam Vital Signs: Vital Signs: Last Vital Signs Temp 98.6 F 08/03/22 07:55 Pulse 58 08/03/22 07:55 Resp 20 08/03/22 07:55 BP 161/74 H 08/03/22 07:55 Pulse Ox 92 08/03/22 07:55 O2 Del Method Room Air 08/03/22 07:55 O2 Flow Rate 2 07/28/22 23:31 BMI result Body Mass Index 25.1 <Chichi Aguilar PA-C - Last Filed: 08/03/22 08:52> Const: General: comfortable, no acute distress and alert <Chichi Aguilar PA-C - Last Filed: 08/03/22 08:52> Orientation/consciousness: patient oriented x3 <Chichi Aguilar PA-C - Last Filed: 08/03/22 08:52> Resp: Effort & Inspection: normal respiratory effort <SADIQ Gonzalez Last Filed: 08/03/22 08:52> GI: Other: BITA drain with tea colored drainage <Chichi Aguilar PA-C - Last Filed: 08/03/22 08:52> Inspection: No distended and Yes incision (clean, timbo intact) <Chichi Aguilar PA-C - Last Filed: 08/03/22 08:52> Palpation (GI): Soft to palpation, Tenderness to palpation present (GI) (mild incisional), no guarding and not rigid <SADIQ Gonzalez Last Filed: 08/03/22 08:52> Skin: General skin exam: no rashes or lesions noted <SADIQ Gonzalez Last Filed: 08/03/22 08:52> Neuro: General: patient oriented x3 and moves all extremities <Chichi Aguilar PA-C - Last Filed: 08/03/22 08:52> Objective Data Active Medications Acetaminophen (Acetaminophen 325 Mg Tablet) 650 mg PO Q6H PRN PRN Reason: fever, pain Amiodarone HCl (Amiodarone Hcl 200 Mg Tablet) 400 mg PO BID [facility] Last Admin: 08/02/22 21:48 Dose: 400 mg Documented By: LOU Amoxicillin/Clavulanate Potassium (Amoxicillin/Potassium Clav 875 Mg Tablet) 875 mg PO Q12H [facility] Last Admin: 08/03/22 00:32 Dose: 875 mg Documented By: LOU Apixaban (Apixaban 5 Mg Tablet) 5 mg PO BID [facility] Last Admin: 08/02/22 21:48 Dose: 5 mg Documented By: LOU Docusate Sodium (Docusate Sodium 100 Mg Capsule) 100 mg PO BID [facility] Last Admin: 08/02/22 21:49 Dose: Not Given Documented By: LOU Non-Admin Reason: Patient Condition Contraindication Glucose (Glucose Gel 15 Gm Gel..Gram.) 15 gm PO Q15M PRN; Protocol PRN Reason: per Hypoglycemia Standing Ord. Last Admin: 07/20/22 06:03 Dose: 15 gm Documented By: RANDY Hydromorphone HCl (Hydromorphone Hcl 0.5 Mg/0.5 Ml Syringe) 0.5 mg IVPUSH Q4H PRN; Protocol PRN Reason: Pain, Severe (Pain Scale 7-10) Last Admin: 08/01/22 01:49 Dose: 0.5 mg Documented By: ZOEY Dextrose (D10) 250 mls @ 750 mls/hr IV Q15M PRN; Protocol PRN Reason: per Hypoglycemia Standing Ord. Last Infusion: 07/21/22 00:15 Dose: 0 mls/hr Documented By: ISAIAH Insulin Human Lispro (Insulin Lispro 100 Unit/Ml 3 Ml Vial) 0 unit SUBCUT QIDACHS [facility]; Protocol Last Admin: 08/02/22 21:48 Dose: Not Given Documented By: LOU Non-Admin Reason: No Insulin Coverage Lisinopril (Lisinopril 10 Mg Tablet) 10 mg PO DAILY [facility]; Protocol Last Admin: 08/02/22 08:20 Dose: 10 mg Documented By: LESLIE Magnesium Hydroxide (Milk Of Magnesia 30 Ml Oral.Susp) 30 ml PO DAILY PRN PRN Reason: Constipation Last Admin: 08/01/22 09:44 Dose: 30 ml Documented By: LESLIE Melatonin (Melatonin 3 Mg Tablet) 6 mg PO BEDTIME PRN PRN Reason: Insomnia Last Admin: 08/02/22 21:54 Dose: 6 mg Documented By: LOU Metoprolol Tartrate (Metoprolol Tartrate 50 Mg Tablet) 50 mg PO BID [facility]; Protocol Last Admin: 08/02/22 21:48 Dose: 50 mg Documented By: LOU Ondansetron HCl (Ondansetron Hcl 4 Mg/2 Ml Vial) 4 mg IVPUSH Q8H PRN PRN Reason: Nausea and Vomiting Oxycodone HCl (Oxycodone Hcl Immed Release 5 Mg Tablet) 5 mg PO Q4H PRN PRN Reason: severe pain Last Admin: 08/02/22 21:54 Dose: 5 mg Documented By: LOU Pharmacy Consult (Consult Rx Perform Med Rec) 1 each MISCELLANE ONCE PRN PRN Reason: Consult order Polyethylene Glycol (Polyethylene Glycol 3350 17 Gm Powd.Pack) 17 gm PO DAILY PRN PRN Reason: Constipation Last Admin: 08/01/22 11:20 Dose: 17 gm Documented By: LESLIE Sodium Chloride (0.9 % Sodium Chloride Flush 3 Ml Syringe) 3 ml IVFLUSH [facility] Last Admin: 08/02/22 21:49 Dose: 3 ml Documented By: LOU <Chichi Aguilar PA-C - Last Filed: 08/03/22 08:52> Labs CBC & Chem 7: 08/02/22 09:19 07/30/22 06:01 <Chichi Aguilar PA-C - Last Filed: 08/03/22 08:52> Labs: Laboratory Results - last 24 hr 08/02/22 08/02/22 08/02/22 09:19 11:18 16:34 MCV 94.1 MCH 30.1 MCHC 32.0 RDW 16.3 H Plt Count 433 H MPV 9.4 Immature Gran % (Auto) 2.5 H Neut % (Auto) 75.6 H Lymph % (Auto) 11.0 L [place] % (Auto) 8.2 Eos % (Auto) 2.4 Baso % (Auto) 0.3 Lymph # (Auto) 1.2 [place] # (Auto) 0.9 Eos # (Auto) 0.3 Baso # (Auto) 0.0 Abs Immat Gran (auto) 0.28 H Absolute Neuts (auto) 8.3 Absolute Nucleated RBC 0.000 Nucleated RBC % (auto) 0.0 POC Glucose 257 H 151 H 08/02/22 08/03/22 19:58 07:34 MCV MCH MCHC RDW Plt Count MPV Immature Gran % (Auto) Neut % (Auto) Lymph % (Auto) [place] % (Auto) Eos % (Auto) Baso % (Auto) Lymph # (Auto) [place] # (Auto) Eos # (Auto) Baso # (Auto) Abs Immat Gran (auto) Absolute Neuts (auto) Absolute Nucleated RBC Nucleated RBC % (auto) POC Glucose 101 134 H <Chichi Aguilar PA-C - Last Filed: 08/03/22 08:52> Procedures Date of Service Date of Service: 08/03/22 <Chichi Aguilar PA-C - Last Filed: 08/03/22 08:52> 08/03/22 <Andrey Mariee MD - Last Filed: 08/03/22 14:38> Progress Note: A&P Assessment and plan (1) S/P cholecystectomy: Status: Acute <Chichi Aguilar PA-C - Last Filed: 08/03/22 08:52> Assessment and Plan: Looks comfortable Tolerating diet BITA drain removed Abdomen soft Planned for discharge to rehab The rest of the plan as per the hospitalist service Seen and examined independently - agree with ALCIDES Aguilar <Andrey Mariee MD - Last Filed: 08/03/22 14:38> Assessment and Plan: POD #8 s/p attempted laparoscopic converted to open partial cholecystectomy. Found to have acute and chronic cholecystitis with significant persistent edema of the gallbladder wall, marked scarring surrounded the gallbladder with poor planes of dissection. Had persistent leukocytosis and started on IV zosyn. WBC now downtrending, transitioned to PO abx. BITA drain remains nonbilious and was removed this morning. He is surgically stable for discharge to rehab once bed is found. Can f/u with [facility] in 1 week for staple removal. Continue PT for strengthening. Patient comfortable with plan. Discussed with patient to mention depression with medicine and possibly starting antidepressant for at least a short period. <Chichi Aguilar PA-C - Last Filed: 08/03/22 08:52> Time Spent With Patient Time: Total time managing care of this patient today ____ minutes. <Chichi Aguilar PA-C - Last Filed: 08/03/22 08:52> Quality Stroke Does the patient have a stroke diagnosis?: No <Chichi Aguilar PA-C - Last Filed: 08/03/22 08:52> VTE Prior VTE?: No <Chichi Aguilar PA-C - Last Filed: 08/03/22 08:52> VTE Risk Level:: Medical - moderate - high <Chichi Aguilar PA-C - Last Filed: 08/03/22 08:52> VTE Device Contraindication: N/A - Device Ordered <SADIQ Gonzalez Last Filed: 08/03/22 08:52> VTE Drug Contraindication: N/A - Med Ordered <SADIQ Gonzalez Last Filed: 08/03/22 08:52>
[2022-08-03] MEDS: Apixaban 5 MG TABLET PO ×2 (10:25→20:07)
[2022-08-03] MEDS: 0.9 % Sodium Chloride Flush 3 ML SYRINGE IVFLUSH ×2 (10:25→14:14)
[2022-08-03] MEDS: Docusate Sodium 100 MG CAPSULE PO ×2 (10:25→20:07)
[2022-08-03] MEDS: Amiodarone HCL 200 MG TABLET 400 MG PO ×2 (10:25→20:12)
[2022-08-03] MEDS: lisinopriL 10 MG TABLET PO (10:25)
[2022-08-03] MEDS: Metoprolol Tartrate 50 MG TABLET PO ×2 (10:25→20:12)
[2022-08-03] MEDS: Acetaminophen 325 MG TABLET 650 MG PO (10:36)
--- NOTE | 2022-08-03 11:03 | MHC.CM.PN ---
Addendum entered by Charlene Wiggins RN 08/03/22 16:15: imm delivered to bedside and [facility] has still not received auth at time of this note, transport cancelled w/[facility] d/t no auth. Original Note: PT MEDICALLY CLEARED FOR D/C TO STR AT [facility], [facility] WILL NEED TO TRANSPORT D/T INSURANCE.
[2022-08-03 11:30] LABS: Glucose, Whole Blood 295 mg/dL (60-115)
--- NOTE | 2022-08-03 13:18 | P.PNIM_ITS ---
Subjective Subjective Date of Service: 08/03/22 Interval History: s/p CCY on 07/26 no new issues drain removed Physical Exam Vital Signs: Vital Signs: Last Vital Signs Temp 98.6 F 08/03/22 07:55 Pulse 58 08/03/22 07:55 Resp 20 08/03/22 07:55 BP 161/74 H 08/03/22 07:55 Pulse Ox 92 08/03/22 07:55 O2 Del Method Room Air 08/03/22 07:55 O2 Flow Rate 2 07/28/22 23:31 BMI result Body Mass Index 25.1 Const: Other: General: AO X 3, no acute distress Resp: CTA bilateral CVS: S1,S2,RRR GI: +BS, NT, no distention, drain in place Skin: No rash Neuro: motor grossly intact Psych: appropriate affect Objective Data Active Medications Acetaminophen (Acetaminophen 325 Mg Tablet) 650 mg PO Q6H PRN PRN Reason: fever, pain Last Admin: 08/03/22 10:36 Dose: 650 mg Documented By: TRUE Amiodarone HCl (Amiodarone Hcl 200 Mg Tablet) 400 mg PO BID [facility] Last Admin: 08/03/22 10:25 Dose: 400 mg Documented By: TRUE Amoxicillin/Clavulanate Potassium (Amoxicillin/Potassium Clav 875 Mg Tablet) 875 mg PO Q12H [facility] Last Admin: 08/03/22 10:25 Dose: 875 mg Documented By: TRUE Apixaban (Apixaban 5 Mg Tablet) 5 mg PO BID [facility] Last Admin: 08/03/22 10:25 Dose: 5 mg Documented By: TRUE Docusate Sodium (Docusate Sodium 100 Mg Capsule) 100 mg PO BID [facility] Last Admin: 08/03/22 10:25 Dose: 100 mg Documented By: TRUE Glucose (Glucose Gel 15 Gm Gel..Gram.) 15 gm PO Q15M PRN; Protocol PRN Reason: per Hypoglycemia Standing Ord. Last Admin: 07/20/22 06:03 Dose: 15 gm Documented By: RANDY Hydromorphone HCl (Hydromorphone Hcl 0.5 Mg/0.5 Ml Syringe) 0.5 mg IVPUSH Q4H PRN; Protocol PRN Reason: Pain, Severe (Pain Scale 7-10) Last Admin: 08/01/22 01:49 Dose: 0.5 mg Documented By: ZOEY Dextrose (D10) 250 mls @ 750 mls/hr IV Q15M PRN; Protocol PRN Reason: per Hypoglycemia Standing Ord. Last Infusion: 07/21/22 00:15 Dose: 0 mls/hr Documented By: ISAIAH Insulin Human Lispro (Insulin Lispro 100 Unit/Ml 3 Ml Vial) 0 unit SUBCUT QIDACHS [facility]; Protocol Last Admin: 08/03/22 09:56 Dose: Not Given Documented By: BIBI Non-Admin Reason: No Insulin Coverage Lisinopril (Lisinopril 10 Mg Tablet) 10 mg PO DAILY [facility]; Protocol Last Admin: 08/03/22 10:25 Dose: 10 mg Documented By: TRUE Magnesium Hydroxide (Milk Of Magnesia 30 Ml Oral.Susp) 30 ml PO DAILY PRN PRN Reason: Constipation Last Admin: 08/01/22 09:44 Dose: 30 ml Documented By: LESLIE Melatonin (Melatonin 3 Mg Tablet) 6 mg PO BEDTIME PRN PRN Reason: Insomnia Last Admin: 08/02/22 21:54 Dose: 6 mg Documented By: LOU Metoprolol Tartrate (Metoprolol Tartrate 50 Mg Tablet) 50 mg PO BID [facility]; Protocol Last Admin: 08/03/22 10:25 Dose: 50 mg Documented By: TRUE Ondansetron HCl (Ondansetron Hcl 4 Mg/2 Ml Vial) 4 mg IVPUSH Q8H PRN PRN Reason: Nausea and Vomiting Oxycodone HCl (Oxycodone Hcl Immed Release 5 Mg Tablet) 5 mg PO Q4H PRN PRN Reason: severe pain Last Admin: 08/02/22 21:54 Dose: 5 mg Documented By: LOU Pharmacy Consult (Consult Rx Perform Med Rec) 1 each MISCELLANE ONCE PRN PRN Reason: Consult order Polyethylene Glycol (Polyethylene Glycol 3350 17 Gm Powd.Pack) 17 gm PO DAILY PRN PRN Reason: Constipation Last Admin: 08/01/22 11:20 Dose: 17 gm Documented By: LESLIE Sodium Chloride (0.9 % Sodium Chloride Flush 3 Ml Syringe) [facility] Last Admin: 08/03/22 10:25 Dose: 3 ml Documented By: TRUE Labs 08/02/22 09:19 07/30/22 06:01 Labs: Laboratory Results - last 24 hr 08/02/22 08/02/22 08/03/22 16:34 19:58 07:34 POC Glucose 151 H 101 134 H 08/03/22 11:26 POC Glucose 295 H Assessment and Plan (1) S/P cholecystectomy: Status: Acute Plan 77yo M with psoriatic arthritis, paroxysmal atrial fibrillation not on anticoagulation, diabetes mellitus type 2 on insulin, and 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 Tolerating regular diet -WBC has been 16, restarted back on Zosyn 08/01, WBC 11 today, PO Augmentin fror 5 days, Flagyl 07/21, dc'd on 07/03 # DM2, A1c 7.9 - correction-dose lispro # psoriatic arthritis - hold etanercept + methotrexate, resume at dc # HTN--on higher sise - continue metoprolol 50 bid and increase lisinopril to 10 daily # constipation-- resolved, continue bowel regiment # VTE ppx: eliquis # dispo: TBD, PT eval today for generalized weakness awaiting rehab bed Ultimately will need short-term rehab. He is agreeable No longer needs continue with cardiac monitoring. To rehab when bed available. Time Spent With Patient Time: Total time managing care of this patient today ____ minutes. Quality Stroke Does the patient have a stroke diagnosis?: No VTE Prior VTE?: No VTE Risk Level:: Medical - moderate - high VTE Device Contraindication: N/A - Device Ordered VTE Drug Contraindication: N/A - Med Ordered
[2022-08-03] MEDS: Insulin Lispro 100 UNIT/ML 3 ML VIAL SUBCUT ×2 (14:17→18:57)
[2022-08-03] MEDS: HYDROmorphone HCl 0.5 MG/0.5 ML SYRINGE IVPUSH ×2 (14:19→20:07)
[2022-08-03 15:29] LABS: Glucose, Whole Blood 235 mg/dL (60-115)
[2022-08-03 15:45] VITALS: BP 142/65; PULSE 54; RESP 20; TEMP 37.2; O2SAT 92
[2022-08-03 19:32] VITALS: BP 143/65; PULSE 59; RESP 14; TEMP 37.1; O2SAT 90
[2022-08-03] MEDS: Melatonin 3 MG TABLET 6 MG PO (20:07)
[2022-08-03 20:51] LABS: Glucose, Whole Blood 188 mg/dL (60-115)
[2022-08-04] VITALS: BP 154/70; PULSE 52; RESP 20; TEMP 36.2; O2SAT 96
[2022-08-04] MEDS: Amoxicillin/Potassium Clav 875 MG TABLET PO ×3 (01:27→23:06)
[2022-08-04] MEDS: 0.9 % Sodium Chloride Flush 3 ML SYRINGE IVFLUSH ×3 (01:27→20:29)
[2022-08-04] MEDS: HYDROmorphone HCl 0.5 MG/0.5 ML SYRINGE IVPUSH ×2 (03:02→09:50)
[2022-08-04 07:36] VITALS: BP 147/68; PULSE 61; RESP 20; TEMP 36.7; O2SAT 96
[2022-08-04 08:18] LABS: Glucose, Whole Blood 160 mg/dL (60-115)
[2022-08-04] MEDS: Metoprolol Tartrate 50 MG TABLET PO ×2 (09:50→20:28)
[2022-08-04] MEDS: Insulin Lispro 100 UNIT/ML 3 ML VIAL SUBCUT ×3 (09:50→20:28)
[2022-08-04] MEDS: Apixaban 5 MG TABLET PO ×2 (09:50→20:28)
[2022-08-04] MEDS: Amiodarone HCL 200 MG TABLET 400 MG PO ×2 (09:50→20:28)
[2022-08-04] MEDS: Docusate Sodium 100 MG CAPSULE PO ×2 (09:50→20:28)
[2022-08-04] MEDS: lisinopriL 10 MG TABLET PO (09:50)
--- NOTE | 2022-08-04 09:57 | P.PNIM_ITS ---
Subjective Subjective Date of Service: 08/05/22 Interval History: s/p CCY on 07/26 no new issues drain removed c/o pain in joint Physical Exam Vital Signs: Vital Signs: Last Vital Signs Temp 98.1 F 08/04/22 07:36 Pulse 61 08/04/22 07:36 Resp 20 08/04/22 07:36 BP 147/68 H 08/04/22 07:36 Pulse Ox 96 08/04/22 07:36 O2 Del Method Room Air 08/04/22 07:36 O2 Flow Rate 2 07/28/22 23:31 BMI result Body Mass Index 25.1 Const: Other: General: AO X 3, no acute distress Resp: CTA bilateral CVS: S1,S2,RRR GI: +BS, NT, no distention, drain in place Skin: No rash Neuro: motor grossly intact Psych: appropriate affect Objective Data Active Medications Acetaminophen (Acetaminophen 325 Mg Tablet) 650 mg PO Q6H PRN PRN Reason: fever, pain Last Admin: 08/03/22 10:36 Dose: 650 mg Documented By: TRUE Amiodarone HCl (Amiodarone Hcl 200 Mg Tablet) 400 mg PO BID [facility] Last Admin: 08/04/22 09:50 Dose: 400 mg Documented By: PATRICIA Amoxicillin/Clavulanate Potassium (Amoxicillin/Potassium Clav 875 Mg Tablet) 875 mg PO Q12H [facility] Last Admin: 08/04/22 01:27 Dose: 875 mg Documented By: ISAIAH Apixaban (Apixaban 5 Mg Tablet) 5 mg PO BID [facility] Last Admin: 08/04/22 09:50 Dose: 5 mg Documented By: PATRICIA Docusate Sodium (Docusate Sodium 100 Mg Capsule) 100 mg PO BID [facility] Last Admin: 08/04/22 09:50 Dose: 100 mg Documented By: PATRICIA Glucose (Glucose Gel 15 Gm Gel..Gram.) 15 gm PO Q15M PRN; Protocol PRN Reason: per Hypoglycemia Standing Ord. Last Admin: 07/20/22 06:03 Dose: 15 gm Documented By: RANDY Hydromorphone HCl (Hydromorphone Hcl 0.5 Mg/0.5 Ml Syringe) 0.5 mg IVPUSH Q4H PRN; Protocol PRN Reason: Pain, Severe (Pain Scale 7-10) Last Admin: 08/04/22 09:50 Dose: 0.5 mg Documented By: PATRICIA Dextrose (D10) 250 mls @ 750 mls/hr IV Q15M PRN; Protocol PRN Reason: per Hypoglycemia Standing Ord. Last Infusion: 07/21/22 00:15 Dose: 0 mls/hr Documented By: ISAIAH Insulin Human Lispro (Insulin Lispro 100 Unit/Ml 3 Ml Vial) 0 unit SUBCUT QIDACHS [facility]; Protocol Last Admin: 08/04/22 09:50 Dose: 2 unit Documented By: PATRICIA Lisinopril (Lisinopril 10 Mg Tablet) 10 mg PO DAILY [facility]; Protocol Last Admin: 08/04/22 09:50 Dose: 10 mg Documented By: PATRICIA Magnesium Hydroxide (Milk Of Magnesia 30 Ml Oral.Susp) 30 ml PO DAILY PRN PRN Reason: Constipation Last Admin: 08/01/22 09:44 Dose: 30 ml Documented By: LESLIE Melatonin (Melatonin 3 Mg Tablet) 6 mg PO BEDTIME PRN PRN Reason: Insomnia Last Admin: 08/03/22 20:07 Dose: 6 mg Documented By: ISAIAH Metoprolol Tartrate (Metoprolol Tartrate 50 Mg Tablet) 50 mg PO BID [facility]; Protocol Last Admin: 08/04/22 09:50 Dose: 50 mg Documented By: PATRICIA Ondansetron HCl (Ondansetron Hcl 4 Mg/2 Ml Vial) 4 mg IVPUSH Q8H PRN PRN Reason: Nausea and Vomiting Pharmacy Consult (Consult Rx Perform Med Rec) 1 each MISCELLANE ONCE PRN PRN Reason: Consult order Polyethylene Glycol (Polyethylene Glycol 3350 17 Gm Powd.Pack) 17 gm PO DAILY PRN PRN Reason: Constipation Last Admin: 08/01/22 11:20 Dose: 17 gm Documented By: LESLIE Sodium Chloride (0.9 % Sodium Chloride Flush 3 Ml Syringe) 3 ml IVFLUSH [facility] Last Admin: 08/04/22 09:50 Dose: 3 ml Documented By: PATRICIA Labs 08/02/22 09:19 07/30/22 06:01 Labs: Laboratory Results - last 24 hr 0508/03/22 08/03/22 11:26 15:25 20:39 POC Glucose 295 H 235 H 188 H 08/04/22 07:47 POC Glucose 160 H Assessment and Plan (1) S/P cholecystectomy: Status: Acute Plan 77yo M with psoriatic arthritis, paroxysmal atrial fibrillation not on a nticoagulation, diabetes mellitus type 2 on insulin, and normal pressure hydrocephalus with 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 Tolerating regular diet -WBC has been 16, restarted back on Zosyn 08/01, WBC 11 today, PO Augmentin fror 5 days, Flagyl 07/21, dc'd on 07/03 # DM2, A1c 7.9 - correction-dose lispro # psoriatic arthritis - hold etanercept + methotrexate, resume at dc # HTN--on higher sise - continue metoprolol 50 bid and increase lisinopril to 10 daily # constipation-- resolved, continue bowel regiment # VTE ppx: eliquis # dispo: TBD, PT eval today for generalized weakness awaiting rehab bed Ultimately will need short-term rehab. He is agreeable No longer needs continue with cardiac monitoring. To rehab when bed available. Time Spent With Patient Time: Total time managing care of this patient today ____ minutes. Quality Stroke Does the patient have a stroke diagnosis?: No VTE Prior VTE?: No VTE Risk Level:: Medical - moderate - high VTE Device Contraindication: N/A - Device Ordered VTE Drug Contraindication: N/A - Med Ordered
[2022-08-04 11:30] VITALS: BP 132/63; PULSE 51; RESP 20; TEMP 36.4; O2SAT 96
[2022-08-04 11:42] LABS: Glucose, Whole Blood 247 mg/dL (60-115)
--- NOTE | 2022-08-04 11:45 | MHC.CM.PN ---
MD inquire RE Pt D/C to SNF today; this RNCM reached out to accepting Center who indicated they do not have auth yet. MD notified, as well as informed he will be notified when/if auth obtained today. MD aware and in agreement. CM to follow.
[2022-08-04] MEDS: oxyCODONE HCl Immed Release 5 MG TABLET PO ×2 (13:18→18:33)
[2022-08-04 15:21] VITALS: BP 155/75; PULSE 56; RESP 20; TEMP 37.2; O2SAT 93
[2022-08-04 16:02] LABS: Glucose, Whole Blood 139 mg/dL (60-115)
[2022-08-04 19:39] VITALS: BP 160/60; PULSE 70; RESP 20; TEMP 36.6; O2SAT 96
[2022-08-04 19:40] LABS: Glucose, Whole Blood 265 mg/dL (60-115)
[2022-08-05] VITALS (9 sets, daily range): BP systolic 138–185; BP diastolic 61–84; PULSE 48–60; RESP 18–20; TEMP 35.7–36.9; O2SAT 92–97
[2022-08-05 07:58] LABS: Glucose, Whole Blood 144 mg/dL (60-115)
--- NOTE | 2022-08-05 09:10 | HO.PM.IMPN ---
Subjective Subjective Date of Service: 08/05/22 Interval History: s/p CCY on 07/26 no new issues drain removed c/o pain in joint, particularyly swelling and pain in the left hand, appearance of gout from past experience Physical Exam Vital Signs: Vital Signs: Last Vital Signs Temp 98.3 F 08/05/22 07:51 Pulse 59 08/05/22 07:51 Resp 20 08/05/22 07:51 BP 145/75 H 08/05/22 07:51 Pulse Ox 97 08/05/22 03:35 O2 Del Method Room Air 08/05/22 03:35 O2 Flow Rate 2 07/28/22 23:31 BMI result Body Mass Index 25.1 Const: Other: General: AO X 3, no acute distress Resp: CTA bilateral CVS: S1,S2,RRR GI: +BS, NT, no distention, drain in place Skin: No rash Neuro: motor grossly intact Psych: appropriate affect Objective Data Active Medications Acetaminophen (Acetaminophen 325 Mg Tablet) 650 mg PO Q6H PRN PRN Reason: fever, pain Last Admin: 08/03/22 10:36 Dose: 650 mg Documented By: TRUE Amiodarone HCl (Amiodarone Hcl 200 Mg Tablet) 400 mg PO BID [facility] Last Admin: 08/04/22 20:28 Dose: 400 mg Documented By: NASRIN Amoxicillin/Clavulanate Potassium (Amoxicillin/Potassium Clav 875 Mg Tablet) 875 mg PO Q12H [facility] Last Admin: 08/04/22 23:06 Dose: 875 mg Documented By: NASRIN Apixaban (Apixaban 5 Mg Tablet) 5 mg PO BID [facility] Last Admin: 08/04/22 20:28 Dose: 5 mg Documented By: NASRIN Docusate Sodium (Docusate Sodium 100 Mg Capsule) 100 mg PO BID [facility] Last Admin: 08/04/22 20:28 Dose: 100 mg Documented By: NASRIN Glucose (Glucose Gel 15 Gm Gel..Gram.) 15 gm PO Q15M PRN; Protocol PRN Reason: per Hypoglycemia Standing Ord. Last Admin: 07/20/22 06:03 Dose: 15 gm Documented By: RANDY Hydromorphone HCl (Hydromorphone Hcl 0.5 Mg/0.5 Ml Syringe) 0.5 mg IVPUSH Q4H PRN; Protocol PRN Reason: Pain, Severe (Pain Scale 7-10) Last Admin: 08/04/22 09:50 Dose: 0.5 mg Documented By: PATRICIA Dextrose (D10) 250 mls @ 750 mls/hr IV Q15M PRN; Protocol PRN Reason: per Hypoglycemia Standing Ord. Last Infusion: 07/21/22 00:15 Dose: 0 mls/hr Documented By: ISAIAH Insulin Human Lispro (Insulin Lispro 100 Unit/Ml 3 Ml Vial) 0 unit SUBCUT QIDACHS [facility]; Protocol Last Admin: 08/04/22 20:28 Dose: 10 unit Documented By: NASRIN Lisinopril (Lisinopril 10 Mg Tablet) 10 mg PO DAILY [facility]; Protocol Last Admin: 08/04/22 09:50 Dose: 10 mg Documented By: PATRICIA Magnesium Hydroxide (Milk Of Magnesia 30 Ml Oral.Susp) 30 ml PO DAILY PRN PRN Reason: Constipation Last Admin: 08/01/22 09:44 Dose: 30 ml Documented By: LESLIE Melatonin (Melatonin 3 Mg Tablet) 6 mg PO BEDTIME PRN PRN Reason: Insomnia Last Admin: 08/03/22 20:07 Dose: 6 mg Documented By: ISAIAH Metoprolol Tartrate (Metoprolol Tartrate 50 Mg Tablet) 50 mg PO BID [facility]; Protocol Last Admin: 08/04/22 20:28 Dose: 50 mg Documented By: NASRIN Ondansetron HCl (Ondansetron Hcl 4 Mg/2 Ml Vial) 4 mg IVPUSH Q8H PRN PRN Reason: Nausea and Vomiting Oxycodone HCl (Oxycodone Hcl Immed Release 5 Mg Tablet) 5 mg PO Q4H PRN PRN Reason: Pain, Severe (Pain Scale 7-10) Last Admin: 08/04/22 18:33 Dose: 5 mg Documented By: PATRICIA Pharmacy Consult (Consult Rx Perform Med Rec) 1 each MISCELLANE ONCE PRN PRN Reason: Consult order Polyethylene Glycol (Polyethylene Glycol 3350 17 Gm Powd.Pack) 17 gm PO DAILY PRN PRN Reason: Constipation Last Admin: 08/01/22 11:20 Dose: 17 gm Documented By: LESLIE Prednisone (Prednisone 20 Mg Tablet) 40 mg PO ONCE ONE Stop: 08/05/22 09:09 Sodium Chloride (0.9 % Sodium Chloride Flush 3 Ml Syringe) [facility] Last Admin: 08/04/22 20:29 Dose: 3 ml Documented By: NASRIN Labs 08/02/22 09:19 07/30/22 06:01 Labs: Laboratory Results - last 24 hr 08/04/22 08/04/22 08/04/22 11:32 15:58 19:33 POC Glucose 247 H 139 H 265 H 08/05/22 07:53 POC Glucose 144 H Assessment and Plan (1) S/P cholecystectomy: Status: Acute Plan 77yo M with psoriatic arthritis, paroxysmal atrial fibrillation not on anticoagulation, diabetes mellitus type 2 on insulin, and normal pressure hydrocephalus with BASKET PERSON shunt, history of cholecystitis managed with cholecystostomy tube placed 04/30/22 brought in to [facility] by EMS due to generalized weakness admitted for severe sepsis due to cholecystitis # paroxysmal AF with RVR - converted on amiodarone drip on 07/24 - continue amio 400mg bid until (08/06) then switch to 200mg daily - continue metoprolol - Eliquis for stroke prevention # severe sepsis due to acute cholecystitis, sepsis resolved -Had Open CCY 07/26 coverted from Lap, ; surgery following. Tolerating regular diet -WBC has been 16, restarted back on Zosyn 08/01, WBC 11 today, PO Augmentin fror 5 days, Flagyl 07/21, dc'd on 07/03 # DM2, A1c 7.9 - correction-dose lispro # psoriatic arthritis - hold etanercept + methotrexate, resume at dc # HTN--on higher sise - continue metoprolol 50 bid and increase lisinopril to 10 daily # constipation-- resolved, continue bowel regiment # Left hand swelling, suspect acute gout, trial of Prednisone, and PRN colchicine # VTE ppx: eliquis # dispo: TBD, PT eval today for generalized weakness awaiting rehab bed Ultimately will need short-term rehab. He is agreeable No longer needs continue with cardiac monitoring. To rehab when bed available. Time Spent With Patient Time: Total time managing care of this patient today ____ minutes. Quality Stroke Does the patient have a stroke diagnosis?: No VTE Prior VTE?: No VTE Risk Level:: Medical - moderate - high VTE Device Contraindication: N/A - Device Ordered VTE Drug Contraindication: N/A - Med Ordered
[2022-08-05] MEDS: Amiodarone HCL 200 MG TABLET 400 MG PO ×2 (09:19→21:17)
[2022-08-05] MEDS: predniSONE 20 MG TABLET 40 MG PO (09:20)
[2022-08-05] MEDS: Apixaban 5 MG TABLET PO ×2 (09:20→21:17)
[2022-08-05] MEDS: Metoprolol Tartrate 50 MG TABLET PO ×2 (09:20→21:17)
[2022-08-05] MEDS: lisinopriL 10 MG TABLET PO (09:20)
[2022-08-05] MEDS: Acetaminophen 325 MG TABLET 650 MG PO (09:23)
[2022-08-05] MEDS: oxyCODONE HCl Immed Release 5 MG TABLET PO ×2 (09:24→21:24)
[2022-08-05] MEDS: 0.9 % Sodium Chloride Flush 3 ML SYRINGE IVFLUSH ×3 (09:25→21:18)
[2022-08-05 11:51] LABS: Glucose, Whole Blood 160 mg/dL (60-115)
[2022-08-05] MEDS: Insulin Lispro 100 UNIT/ML 3 ML VIAL SUBCUT ×4 (12:24→21:25)
[2022-08-05] MEDS: Amoxicillin/Potassium Clav 875 MG TABLET PO ×2 (12:24→23:45)
[2022-08-05] MEDS: HYDROmorphone HCl 0.5 MG/0.5 ML SYRINGE IVPUSH (12:29)
[2022-08-05 16:04] LABS: Glucose, Whole Blood 410 mg/dL (60-115)
[2022-08-05 19:37] LABS: Glucose, Whole Blood 435 mg/dL (60-115)
[2022-08-05] MEDS: Docusate Sodium 100 MG CAPSULE PO (21:17)
[2022-08-05 21:23] LABS: Glucose, Whole Blood 319 mg/dL (60-115)
[2022-08-06 04:00] VITALS: BP 154/72; PULSE 53; RESP 16; TEMP 36.3; O2SAT 97
[2022-08-06 07:47] LABS: Glucose, Whole Blood 144 mg/dL (60-115)
[2022-08-06 07:52] VITALS: BP 170/60; PULSE 62; RESP 20; TEMP 36.4; O2SAT 95
[2022-08-06] MEDS: Amiodarone HCL 200 MG TABLET 400 MG PO (08:14)
[2022-08-06] MEDS: Apixaban 5 MG TABLET PO (08:14)
[2022-08-06] MEDS: Metoprolol Tartrate 50 MG TABLET PO (08:14)
[2022-08-06] MEDS: 0.9 % Sodium Chloride Flush 3 ML SYRINGE IVFLUSH (08:14)
[2022-08-06] MEDS: lisinopriL 10 MG TABLET PO (08:14)
[2022-08-06] MEDS: Docusate Sodium 100 MG CAPSULE PO (08:14)
[2022-08-06] MEDS: predniSONE 20 MG TABLET PO (11:38)
[2022-08-06] MEDS: Insulin Lispro 100 UNIT/ML 3 ML VIAL SUBCUT (11:38)
[2022-08-06] MEDS: Amoxicillin/Potassium Clav 875 MG TABLET PO (11:38)
[2022-08-06] MEDS: oxyCODONE HCl Immed Release 5 MG TABLET PO ×2 (11:38→15:35)
--- NOTE | 2022-08-06 11:38 | P.DS_ITS ---
DS: Providers Provider Date of Service: 08/06/22 Date of admission: 07/19/22 18:14 Primary care physician: Jesenia Bynum MD Consults: 07/19/22 18:21 Consult to General Surgery Routine Consulting Provider: Andrey Mariee Reason for consultation: cholecystitis Has provider been notified: Yes 07/19/22 18:22 Consult to Gastroenterology Routine Consulting Provider: Mikki Martinez Reason for consultation: elevated lfts Has provider been notified: Yes 07/23/22 10:46 Consult to Cardiology Routine Consulting Provider: [facility] Cardiovascular Services Reason for consultation: pAF to 162, also happened last hosp for beth. pre- op optimization? 07/23/22 10:52 Consult to General Surgery Routine Consulting Provider: [facility] General Surgeons Reason for consultation: Pt initially seen by Dr Fontanez. Pt requests 2nd opinion- different surgeon 07/29/22 10:11 Consult to Infectious Diseases Routine Consulting Provider: [facility] Infectious Disease Reason for consultation: need for abx ; culture with E coli, Klebsiella and bacteroides DS: Diagnosis Discharge Diagnosis (1) S/P cholecystectomy: Status: Acute DS: Summary Hospital Course Hospital Course: Hospital course: # paroxysmal AFIB with RVR, inititally required IV cardizem and ultimately was started on IV amiodarone loading on advised on cardiology and now has completeed oral amiodarone loaded at 400 twice and from here on will be on 200 mg daily. He has converted to sinus rythm and is is to be anticoagulated with eliquis at 5 mg twice daily. To follow up with [facility] cardiovascular services. # severe sepsis due to acute cholecystitis, sepsis resolved, treated with IV antibiotics and had Open cholecystectomy by Dr. Mariee on 07/26, He had a post operative drain for prolonged period of time but was untimately removed. He is been tolerating regular diet since the surgery. He has completed course of antibioticss, with Zosyn, Flagyl and Augmentin. # DM2, A1c 7.9 - To resume metformin, Lantus dose decreased from 45 to 30, glipizide dose decrease from 10 bid to 5 bid,--if surgars are peristently high further adjustment maybe made # psoriatic arthritis - holding etanercept + methotrexate, resume at dc per global creative chairman instruction # HTN--on higher sise - continue metoprolol 50 bid and Lisinopril 10 mg daily, at home 5 mg, to continue Norvasc 10 daily ( this was on hold in the hospital and has been restarted) # constipation-- resolved, continue bowel regiment #? Left hand swelling, suspect acute gout, trial of Prednisone 20 mg daily, and oxycodone prn for pain, Time Spent with Patient Time attestation: Total time managing care of this patient today ____ minutes. Discharge coordination time: Greater than 30 minutes Quality: Safe Use of Opioids Does Pt have an Active Cancer Diagnosis on the Problem List?: No Quality: Stroke Does the patient have a stroke diagnosis?: No Physical Exam Vital Signs: Vital Signs: Last Vital Signs Temp 97.6 F 08/06/22 07:52 Pulse 62 08/06/22 07:52 Resp 20 08/06/22 07:52 BP 170/60 H 08/06/22 07:52 Pulse Ox 95 08/06/22 07:52 O2 Del Method Room Air 08/06/22 07:52 O2 Flow Rate 2 07/28/22 23:31 BMI result Body Mass Index 25.1 DS: Data Data Completed and Pending Completed studies during hospitalization [Text1]: Pending at discharge 07/26/22 14:28 Surgical [PTH] Routine Procedures Assistance with Respiratory Ventilation, Less than 24 Consecutive Hours, Continuous Positive Airway Pressure (04/28/22) Drainage of Gallbladder with Drainage Device, Percutaneous Approach (04/28/22) Introduction of Vasopressor into Peripheral Vein, Percutaneous Approach (04/28/22) Labs on day of discharge: Laboratory Results - last 24 hr 08/05/22 08/05/22 08/05/22 11:40 16:00 19:32 POC Glucose 160 H 410 H* 435 H* 08/05/22 08/06/22 21:15 07:32 POC Glucose 319 H 144 H Discharge Plan Discharge Anticipated Discharge Date/Time: 08/06/22 15:45 Patient Disposition: Xfer SNF Discharge Diagnosis: Acute cholecystitis, AFIB with RVR Referrals: [facility] [Outside] - 1 Day (SHORT TERM REHAB) Andrey Mariee MD [Physician] - 1 Week Jesenia Bynum MD [Primary Care Provider] - 1 Week Discharge Medications: New prednisone 20 mg Tablet 20 mg PO DAILY Qty: 4 0RF lisinopril 10 mg Tablet 10 mg PO DAILY Qty: 30 0RF Protocol: Hold for SBP< HOLD for SBP < : 90 Eliquis 5 mg Tablet 5 mg PO BID Qty: 60 0RF oxycodone 5 mg capsule 5 mg PO Q6H PRN (Reason: pain) Qty: 14 0RF Rx Instructions: Partial Fill upon patient request. amiodarone 200 mg Tablet 200 mg PO DAILY Qty: 30 0RF Continued Enbrel SureClick 50 mg/mL (1 mL) pen injector 50 mg subcut QWEEK Qty: 12 1RF Farxiga 5 mg tablet 5 mg PO DAILY methotrexate sodium 2.5 mg tablet 20 mg PO QWEEK metformin 500 mg tablet extended release 24 hr 1,000 mg PO BID insulin lispro [Humalog KwikPen Insulin] 100 unit/mL insulin pen 0 sliding scale dose subcut TID amlodipine 10 mg tablet 10 mg PO DAILY atorvastatin 20 mg tablet 20 mg PO DAILY furosemide 40 mg tablet 40 mg PO DAILY metoprolol tartrate 50 mg tablet 50 mg PO BID cholecalciferol (vitamin D3) 125 mcg (5,000 unit) capsule 125 mcg PO DAILY Changed glipizide 10 mg tablet extended release 24hr 5 mg PO BID Qty: 60 0RF insulin glargine [Lantus Solostar U-100 Insulin] 100 unit/mL (3 mL) insulin pen 30 unit subcut BEDTIME Qty: 15 0RF Discontinued lisinopril 5 mg tablet 5 mg PO DAILY Discharge Orders: Discharge Order (Routine); Ordered 08/06/22 Ordered By: Mike Faustin Diet: Diabetic diet Activity on Discharge: As tolerated Stand Alone Forms: Patient Portal Discharge page Activity Restrictions/Additional Instructions: If the incision area is tender, you may apply an ice pack for short intervals (No more than 20 minutes on, followed by at least 20 minutes off). Do not apply heat. Do not use creams, lotions, or topical antibiotics. These can cause infection or allergic reaction. Ok to shower. You have timbo closing your incision and these will be removed approximately 10-14 days after surgery. NO HEAVY LIFTING (>10lbs) or strenuous activity. Follow up in office. ([phone]) Call Your Doctor If: -Your temperature exceeds 101.5? F -You experience excessive pain or swelling -You have an unexpected reaction to medication -You have excessive bleeding -You experience continued vomiting/nausea -Your incision begins to separate -Your incision shows signs of infection such as increased redness, swelling, excessive pain, drainage (light blood or clear fluid is normal) or heat Care Plan Goals: Full recovery from cholecystitis, afib Health Concerns: cholecystitis, afib, sepsis, gout Plan of Treatment: Continue meds as above--See discharge heide for more details Assessment: as above
[2022-08-06 11:39] LABS: Glucose, Whole Blood 253 mg/dL (60-115)
[2022-08-06 12:00] VITALS: BP 160/74; PULSE 54; RESP 20; TEMP 36.4; O2SAT 95
[2022-08-06] MEDS: amLODIPine Besylate 10 MG TABLET PO (12:58)
[2022-08-06] MEDS: metHOTREXate sodium 2.5 MG TABLET 20 MG PO (14:09)
--- NOTE | 2022-08-06 14:09 | MHC.CM.PN ---
DP: PT HAS BEEN MEDICALLY CLEARED FOR DC TO STR AT [facility]. [facility] HAS OBTAINED INSURANCE AUTH. RN AWARE. DAUGHTER/HCP DALILA MADE AWARE. RN AWARE. BLS TRANSPORT BOOKED VIA [facility] AT 4 PM.
[2022-08-06 15:29] LABS: COVID-19 Test Negative (Negative); IDNOW Serial# BCCEAD1C
== END 2022-08-06 17:57 | disposition skilled nursing facility (03) | DRG 854 ==
LOC: HO.ED 18:09 → HO.EDOVER 21:22 → HO.IMC 07-20 07:42
PROVIDERS: Family Medicine; Physician Assistant Surgical; Student in an Organized Health Care Education/Training Program; Surgery; Admitting Provider Hospitalist; Emergency Provider Student in an Organized Health Care Education/Training Program; PCP Internal Medicine; Visit Provider Internal Medicine
PROC: 0FT44ZZ Resection of Gallbladder, Percutaneous Endoscopic Approach (ICD-10-PCS; CPT 47562; principal; 2022-07-26 11:10)
DX: A41.9 Sepsis, unspecified organism (principal); E46 Unspecified protein-calorie malnutrition; G91.2 (Idiopathic) normal pressure hydrocephalus; I48.92 Unspecified atrial flutter; K80.12 Calculus of gallbladder with acute and chronic cholecystitis without obstruction; L40.50 Arthropathic psoriasis, unspecified; I11.9 Hypertensive heart disease without heart failure; E11.65 Type 2 diabetes mellitus with hyperglycemia; E78.5 Hyperlipidemia, unspecified; G47.33 Obstructive sleep apnea (adult) (pediatric); I48.0 Paroxysmal atrial fibrillation; R65.20 Severe sepsis without septic shock; R54 Age-related physical debility; K59.00 Constipation, unspecified; M10.9 Gout, unspecified; Z20.822 Contact with and (suspected) exposure to COVID-19; Z91.199 Patient's noncompliance with other medical treatment and regimen due to unspecified reason; Z68.25 Body mass index [BMI] 25.0-25.9, adult; Z98.2 Presence of cerebrospinal fluid drainage device; Z79.4 Long term (current) use of insulin; Z79.84 Long term (current) use of oral hypoglycemic drugs; Z79.620 Long term (current) use of immunosuppressive biologic; Z79.899 Other long term (current) drug therapy
CPT/HCPCS: 36415; 70450; 71046; 72125; 74177; 76705; 78226; 80048; 80053; 80076; 81001; 82077; 82140; 82248; 82947; 83036; 83605; 83690; 83735; 83880; 84134; 84443; 84484; 85025; 85027; 85610; 86140; 86850; 86900; 86901; 87040; 87635; 88304; 93005; 97110; 97162; 97530; 99285; A9537; C1758; J0131; J0282; J0283; J0696; J1170; J1650; J1940; J2270; J2405; J2543; J2795; J3010; J3370; Q9967

== ENCOUNTER → 2022-08-21 09:27 | Outpatient (BNVA) | payer MEDICARE, SELFPAY | PROVIDERS: PCP Internal Medicine; Referring Provider Internal Medicine; Visit Provider Surgery ==

== ENCOUNTER → 2022-08-23 10:30 | Outpatient (BNVA) | payer MEDICARE, SELFPAY | PROVIDERS: PCP Internal Medicine; Visit Provider Surgery | DX: Z09 Encounter for follow-up examination after completed treatment for conditions other than malignant neoplasm (principal); Z90.49 Acquired absence of other specified parts of digestive tract | CPT/HCPCS: 99212 ==

== ENCOUNTER 2022-08-24 13:29 | Emergency (ER) | payer MEDICARE, OTHER, SELFPAY ==
--- NOTE | ~2022-08-24 | CT_ITS ---
EXAMINATION: CT HEAD WITHOUT CONTRAST CLINICAL INFORMATION: Weakness. Ventriculoperitoneal shunt. COMPARISON: Head CT from 07/19/2022 TECHNIQUE: Contiguous axial imaging was performed from the skull base to vertex without intravenous administration of contrast. This CT examination was performed using dose optimization techniques as appropriate, variously including the following: *Automated exposure control *Adjustment of mA and/or kV according to patient size (this includes techniques or standardized protocols for targeted exams where dose is matched to indication/reason for exam; i.e. extremities or head) *Use of iterative reconstruction technique DLP: 689 mGy-cm FINDINGS: No intracranial hemorrhage, extraaxial surface collection, focal mass effect or midline shift. Again noted is the ventricular shunt catheter entering the calvarium from a right frontal approach. The tip of the catheter is located in the right frontal horn. The ventricles are chronically dilated, unchanged compared to 07/19/2022. The lateral ventricles measure 5.6 m transverse at level of frontal horns. 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 The garvin-white matter differentiation is maintained. No evidence of an acute major vascular territory infarct infarction. There are chronic changes of mild microangiopathy affecting the supratentorial white matter. Secretions layer along posterior liriano of the sphenoid sinus. Otherwise, the visualized paranasal sinuses are unremarkable. The mastoid air cells are clear. Temporomandibular joints, orbits and globes are unremarkable. CT/CT head/brain wo IV con IMPRESSION: * No intracranial hemorrhage or other acute intracranial pathology compared to prior head CT from 07/19/2022. * The degree of ventricular dilatation remains unchanged compared to 07/19/2022, and tip of the ventricular shunt catheter is in stable position within the right frontal horn.
[2022-08-24 13:35] VITALS: BP 130/75; PULSE 65; O2SAT 97
[2022-08-24 13:40] VITALS: BP 140/59; PULSE 66; RESP 16; TEMP 36.8; O2SAT 98; BMI 25.8
--- NOTE | 2022-08-24 13:42 | ED.GENADULT ---
HPI - General Adult General Chief complaint: Dizziness Stated complaint: Weakness per EMS Time Seen by Provider: 08/24/22 13:42 Source: patient, EMS, RN notes reviewed and old records reviewed Mode of arrival: EMS Limitations: no limitations History of Present Illness HPI narrative: Patient is a 77-year-old male with history of poorly controlled T2DM, frailty syndrome, afib on Eliquis, cardiomegaly, and recent cholecystectomy on 07/26/22. Patient was recently at an acute rehab facility following his cholecystectomy. He was discharged home this morning and was brought home by his daughter. He states that shortly after his daughter left he was in the bathroom and his legs became weak. He held onto the sink and slowly lowered himself to the floor. He denies falling to the floor, denies hitting his head. He denies loss of consciousness. Reports that he crawled out of the bathroom while laying supine and called his daughter who called 911. Denies any head, neck, or back pain. Denies any chest pain or dyspnea. Denies any abdominal pain and reports that pain has been well managed following his cholecystectomy. He denies any recent fevers. He denies any dysuria, urinary frequency or other urinary symptoms. He denies any blood in his stool or dark, tarry stools. Denies any nausea or vomiting. MD complaint: Weakness Onset (ago): hour(s) Location: lower extremity Treatments prior to arrival: none Related Data Home Medications Medication Instructions Recorded Confirmed amlodipine 10 mg tablet 10 mg PO DAILY 11/22/21 08/24/22 atorvastatin 20 mg tablet 20 mg PO DAILY 11/22/21 08/24/22 furosemide 40 mg tablet 40 mg PO DAILY 11/22/21 08/24/22 metoprolol tartrate 50 mg tablet 50 mg PO BID 11/22/21 08/24/22 metformin 500 mg tablet,extended 500 mg PO BID 06/18/22 08/24/22 release 24 hr dapagliflozin 5 mg tablet (Farxiga) 5 mg PO DAILY 07/19/22 08/24/22 Lactobacillus rhamnosus GG 10 1 cap PO DAILY 08/24/22 08/24/22 billion cell capsule (Culturelle) acetaminophen 325 mg tablet 650 mg PO Q6H PRN Fever Or Pain 08/24/22 08/24/22 bupropion HCl 100 mg tablet 100 mg PO BID 08/24/22 08/24/22 folic acid 1 mg tablet 1 mg PO DAILY 08/24/22 08/24/22 glipizide 10 mg tablet, extended 10 mg PO BID 08/24/22 08/24/22 release 24 hr insulin glargine 100 unit/mL (3 35 unit subcut BEDTIME 08/24/22 08/24/22 mL) subcutaneous pen (Lantus Solostar U-100 Insulin) insulin lispro 100 unit/mL 0 sliding scale dose subcut BID 08/24/22 08/24/22 subcutaneous cartridge (Humalog U-100 Insulin) loperamide 2 mg tablet 2 mg PO Q4H PRN Loose Stool 08/24/22 08/24/22 methotrexate sodium 10 mg tablet 20 mg PO QWEEK 08/24/22 08/24/22 sennosides 8.6 mg tablet (senna) 8.6 mg PO DAILY PRN Constipation 08/24/22 08/24/22 Previous Rx's Medication Instructions Recorded apixaban 5 mg tablet (Eliquis) 5 mg PO BID #60 tabs 08/06/22 lisinopril 10 mg tablet 10 mg PO DAILY #30 tabs 08/06/22 etanercept 50 mg/mL (1 mL) 50 mg subcut QWEEK #12 mL 08/22/22 subcutaneous pen injector (Enbrel SureClick) Allergies Allergy/AdvReac Type Severity Reaction Status Date / Time famotidine [From Pepcid] Allergy Intermediate Hallucinati Verified 08/24/22 13:43 ons Review of Systems Review of Systems: As per HPI. Yes all other systems are reviewed and are negative Constitutional: Constitutional: Reports as per HPI [facility] Past Medical History Medical History Abnormal LFTs ADHD Back pain Cardiomegaly Diabetes Diabetic retinopathy Encounter for screening for other viral diseases Gallstones Gout Hypertension Immunosuppression due to drug therapy Leukocytosis 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, skilled nursing, current use New onset a-fib Normal pressure hydrocephalus Obstructive sleep apnea Paroxysmal atrial fibrillation Paroxysmal atrial flutter Protein malnutrition Psoriasis Psoriatic arthritis Restless leg syndrome Screening-pulmonary TB Surgical History History of cholecystectomy (07/26/22) Social History Social History Household Members: None Household Members Other:: lives alone Housing: House Do you presently have visiting nurse or other home services: No Alcohol intake: never Patient Tobacco Use Status: Never used Tobacco Smoked in Last 30 Days: No e-Cigarette/Vaping Use: Never Used Use of substances other than those prescribed or required for medical reasons: No Advance Directives: Yes Advance Directives on File: Yes Advance Directives Date on File: 08/07/22 service: No Current occupational status: 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 Physical Exam ED Vital Signs: Vital Signs - 24 hr 08/26/22 14:00 08/26/22 15:18 08/27/22 05:34 Temperature 97.5 F 99.2 F 97.3 F Pulse Rate 85 60 58 Respiratory Rate 20 20 20 Blood Pressure 112/54 L 119/62 125/65 Pulse Oximetry 92 93 97 Oxygen Delivery Method Room Air Room Air Room Air BMI result Body Mass Index 25.8 Const General: cooperative, alert and awake Nutritional Appearance: average body habitus Orientation/consciousness: patient oriented x3 Limitations: no limitations HENMT Head: Yes normocephalic and Yes atraumatic Ears: external ears normal General nose exam: Normal external nose present Face and sinus: Yes face symmetric Mouth: oropharynx normal and moist mucous membranes Throat: Yes uvula midline Eyes Pupils: Equal, round and reactive pupils present Neck Neck: Yes normal visual inspection and Yes supple Resp Effort & Inspection: normal respiratory effort and able to speak in complete sentences Auscultation: clear to auscultation bilaterally Cardio Rate: regular rate Rhythm: regular rhythm Heart sounds: S1 normal heart sound present and S2 normal heart sound present GI Palpation (GI): Soft to palpation and nontender Auscultation: normoactive bowel sounds General: Yes no CVA tenderness Back/Spine/Pelvis Back: no CVA tenderness Skin Other: Well-healed surgical incision to right upper quadrant of abdomen without erythema or calor. General skin exam: elasticity normal and turgor normal Neuro General: patient oriented x3 Cranial nerves: Yes Equal, round and reactive pupils present Cognition (Neuro): normal cognition Extrem General: Yes full ROM, Yes no pedal edema and Yes no calf tenderness Psych Mental Status: mental status grossly normal Affect: normal affect Thought process: Normal thought process present Course Course Course Narrative: 15:19 Labs consistent with baseline, mildly elevated BUN, glucose 62, will administer 1L IV fluids, provide food/drink. Awaiting results of UA. Will place PT/case management consult. 15:56 UA negative for infection. Presentation most consistent with mild dehydration. 08/27/22--physician observation completed. Patient accepted to [facility] will be transported via BLS at 14:00 Reevaluation(s) Reevaluation #1: 08/25/2022 - 1456 Physician observation continued. No overnight events, vital signs stable. PT recommending short-term rehab, pending placement. Patient is stable, will continue to observe. 08/26/2022 - 09 physician observation continued. No overnight events, vital signs are stable. Case Management short-term rehab placement pending. Patient is stable will continue to observe. 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 Ordered CT head. 08/26/2022 17:01 FINDINGS: No intracranial hemorrhage, extraaxial surface collection, focal mass effect or midline shift. Again noted is the ventricular shunt catheter entering the calvarium from a right frontal approach. The tip of the catheter is located in the right frontal horn. The ventricles are chronically dilated, unchanged compared to 07/19/2022. The lateral ventricles measure 5.6 m transverse at level of frontal horns. 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 The garvin-white matter differentiation is maintained. No evidence of an acute major vascular territory infarct infarction. There are chronic changes of mild microangiopathy affecting the supratentorial white matter. Secretions layer along posterior liriano of the sphenoid sinus. Otherwise, the visualized paranasal sinuses are unremarkable. The mastoid air cells are clear. Temporomandibular joints, orbits and globes are unremarkable. ? CT/CT head/brain wo IV con IMPRESSION: *? No intracranial hemorrhage or other acute intracranial pathology compared to prior head CT from 07/19/2022. *? The degree of ventricular dilatation remains unchanged compared to 07/19/2022, and tip of the ventricular shunt catheter is in stable position within the right frontal horn. ANTON Blair in obs notified. Medications Administered Generic Name Dose Route Start Last Admin Trade Name Zahida PRN Reason Stop Dose Admin Acetaminophen 650 mg 08/24/22 22:35 08/26/22 20:21 Acetaminophen 325 Mg Tablet PO 650 mg Q6H PRN Administration Fever Or Pain Amlodipine Besylate 10 mg 08/25/22 09:00 08/27/22 10:31 Amlodipine Besylate 10 Mg Tablet PO 10 mg DAILY BENIGNO Administration Protocol Apixaban 5 mg 08/24/22 22:45 08/27/22 10:31 Apixaban 5 Mg Tablet PO 5 mg BID BENIGNO Administration Atorvastatin Calcium 20 mg 08/25/22 09:00 08/27/22 10:32 Atorvastatin Calcium 20 Mg Tablet PO 20 mg DAILY BENIGNO Administration Bupropion HCl 100 mg 08/24/22 22:45 08/27/22 10:30 Bupropion Hcl 100 Mg Tablet PO 100 mg BID BENIGNO Administration Empagliflozin 10 mg 08/25/22 09:00 08/27/22 10:31 Empagliflozin 10 Mg Tablet PO 10 mg DAILY BENIGNO Administration Folic Acid 1 mg 08/25/22 09:00 08/27/22 10:31 Folic Acid 1 Mg Tablet PO 1 mg DAILY BENIGNO Administration Furosemide 40 mg 08/25/22 09:00 08/27/22 10:30 Furosemide 40 Mg Tablet PO 40 mg DAILY BENIGNO Administration Protocol Glipizide 10 mg 08/24/22 22:45 08/27/22 10:31 Glipizide Xl 10 Mg Tab.Er.24 PO 10 mg BID BENIGNO Administration Insulin Glargine 35 unit 08/24/22 22:45 08/26/22 20:17 Insulin Glargine,Hum.Rec.Anlog 100 Unit/Ml 10 Ml Vial SUBCUT 35 unit BEDTIME BENIGNO Administration Insulin Human Lispro 0 unit 08/25/22 09:00 08/27/22 09:00 Insulin Lispro 100 Unit/Ml 3 Ml Vial SUBCUT Not Given BID BENIGNO Protocol Lisinopril 10 mg 08/25/22 09:00 08/27/22 10:31 Lisinopril 10 Mg Tablet PO 10 mg DAILY BENIGNO Administration Protocol Metformin HCl 500 mg 08/24/22 22:45 08/27/22 10:31 Metformin Hcl Er 500 Mg Tab.Er.24h PO 500 mg BID BENIGNO Administration Metoprolol Tartrate 50 mg 08/24/22 22:45 08/27/22 10:31 Metoprolol Tartrate 50 Mg Tablet PO 50 mg BID BENIGNO Administration Protocol Discontinued Medications Generic Name Dose Route Start Last Admin Trade Name Freq PRN Reason Stop Dose Admin Sodium Chloride 1,000 mls @ 999 mls/hr 08/24/22 15:30 08/24/22 19:29 Ns IV 08/24/22 16:30 Infused .Q1H1M BENIGNO Infusion Medical Decision Making Medical Decision Making [facility] Narrative: Patient is a 77-year-old male with history of poorly controlled T2DM, frailty syndrome, afib on Eliquis, cardiomegaly, and recent cholecystectomy on 07/26/22. Patient was recently at an acute rehab facility following his cholecystectomy. On exam patient is awake, A+Ox3, normal neurological exam without focal deficits, LS CTA throughout, RRR, ABD SNT,VS WNL, EKG not concerning for STEMI. Concern for dehydration, hypoglycemic episode, other electrolyte abnormality, anemia. Less likely infectious process as patient is afebrile. Unlikely ICH/CVA, Guillain-[place]. Plan: EKG, labs, UA, reassess Please refer to course for remaining clinical decision making. Differential Diagnosis Differential Diagnoses: The differential diagnosis associated with the presentation includes As above Admission/Observation Consideration of admission/observation: Escalation of care including admission/observation considered Consult Healthcare Provider Management of the patient was discussed with: Rotary Drier Feeder (case mgmt) Lab Data [facility] Lab Attestation statement: I reviewed the patient's lab results. 08/24/22 14:23 08/24/22 14:23 Labs: Lab Results 08/24/22 08/24/22 08/24/22 Range/Units 14:23 14:23 14:23 WBC 10.0 (4.8-10.8) X10*3/uL RBC 4.36 L D (4.60-5.80) X10*6/uL Hgb 13.4 L D (14.0-18.0) g/dl Hct 41.1 L D (42.0-52.0) % MCV 94.3 (80.0-98.0) fL MCH 30.7 (27.0-33.0) pg MCHC 32.6 (31.0-36.0) g/dl RDW 16.3 H (11.0-16.0) % Plt Count 246 D (160-400) X10*3/uL MPV 9.1 L (9.4-12.4) fL Immature Gran % (Auto) 0.5 H (0.0-0.4) % Neut % (Auto) 78.5 H (45-73) % Lymph % (Auto) 10.2 L (20-40) % [place] % (Auto) 8.5 (2-11) % Eos % (Auto) 1.8 (0-4) % Baso % (Auto) 0.5 (0-2) % Lymph # (Auto) 1.0 L (1.2-4.9) X10*3/uL [place] # (Auto) 0.9 (0.1-1.2) X10*3/uL Eos # (Auto) 0.2 (0.0-0.4) X10*3/uL Baso # (Auto) 0.1 (0.0-0.2) X10*3/uL Abs Immat Gran (auto) 0.05 H (0.00-0.03) X10*3/uL Absolute Neuts (auto) 7.9 (2.0-8.3) x10*3/uL Absolute Nucleated RBC 0.000 (0.0-0.012) X10*3/uL Nucleated RBC % (auto) 0.0 (0.0-0.2) /100WBC PT 14.3 H (10.0-13.1) SEC INR 1.2 H (0.9-1.1) Sodium 138 (135-145) mmol/L Potassium 4.5 (3.3-5.1) mmol/L Chloride 104 (96-108) mmol/L Carbon Dioxide 26 (22-29) mmol/L Anion Gap 13 (12-20) BUN 19 H (9-16) mg/dL Creatinine 1.06 (0.5-1.4) mg/dL Estim Creat Clear Calc 57.3 Estimated GFR > 60 POC Glucose (60-115) mg/dL Random Glucose 62 (60-115) mg/dL Calcium 9.2 D (8.4-10.2) mg/dL Magnesium 1.9 (1.6-2.6) mg/dL Total Bilirubin 0.6 (0.0-1.0) mg/dL AST 10 (5-37) U/L ALT 12 (0-40) U/L Alkaline Phosphatase 139 H (39-117) U/L Troponin I High Sens (<3.5-35.0) ng/L Total Protein 7.0 (6.5-8.0) g/dL Albumin 3.8 (3.5-5.0) g/dL Urine Color Urine Appearance Urine pH (5.0-9.0) Ur Specific Whit[place] (1.005-1.025) Urine Protein (Neg-Trace) mg/dL Urine Glucose (UA) (Negative) mg/dL Urine Ketones (Negative) mg/dL Urine Blood (Negative) Urine Nitrite (Negative) Ur Leukocyte Esterase (Negative) COVID-19 (HELENA) (Negative) COVID-19 Clin Com 08/24/22 08/24/22 08/24/22 Range/Units 14:23 15:37 20:02 WBC (4.8-10.8) X10*3/uL RBC (4.60-5.80) X10*6/uL Hgb (14.0-18.0) g/dl Hct (42.0-52.0) % MCV (80.0-98.0) fL MCH (27.0-33.0) pg MCHC (31.0-36.0) g/dl RDW (11.0-16.0) % Plt Count (160-400) X10*3/uL MPV (9.4-12.4) fL Immature Gran % (Auto) (0.0-0.4) % Neut % (Auto) (45-73) % Lymph % (Auto) (20-40) % [place] % (Auto) (2-11) % Eos % (Auto) (0-4) % Baso % (Auto) (0-2) % Lymph # (Auto) (1.2-4.9) X10*3/uL [place] # (Auto) (0.1-1.2) X10*3/uL Eos # (Auto) (0.0-0.4) X10*3/uL Baso # (Auto) (0.0-0.2) X10*3/uL Abs Immat Gran (auto) (0.00-0.03) X10*3/uL Absolute Neuts (auto) (2.0-8.3) x10*3/uL Absolute Nucleated RBC (0.0-0.012) X10*3/uL Nucleated RBC % (auto) (0.0-0.2) /100WBC PT (10.0-13.1) SEC INR (0.9-1.1) Sodium (135-145) mmol/L Potassium (3.3-5.1) mmol/L Chloride (96-108) mmol/L Carbon Dioxide (22-29) mmol/L Anion Gap (12-20) BUN (9-16) mg/dL Creatinine (0.5-1.4) mg/dL Estim Creat Clear Calc Estimated GFR POC Glucose 110 (60-115) mg/dL Random Glucose (60-115) mg/dL Calcium (8.4-10.2) mg/dL Magnesium (1.6-2.6) mg/dL Total Bilirubin (0.0-1.0) mg/dL AST (5-37) U/L ALT (0-40) U/L Alkaline Phosphatase (39-117) U/L Troponin I High Sens < 2.7 (<3.5-35.0) ng/L Total Protein (6.5-8.0) g/dL Albumin (3.5-5.0) g/dL Urine Color Yellow Urine Appearance Clear Urine pH 5.5 (5.0-9.0) Ur Specific [place] 1.010 (1.005-1.025) Urine Protein Trace (Neg-Trace) mg/dL Urine Glucose (UA) Negative (Negative) mg/dL Urine Ketones Negative (Negative) mg/dL Urine Blood Negative (Negative) Urine Nitrite Negative (Negative) Ur Leukocyte Esterase Negative (Negative) COVID-19 (HELENA) (Negative) COVID-19 Clin Com 08/24/22 08/25/22 08/25/22 Range/Units 23:38 05:52 06:18 WBC (4.8-10.8) X10*3/uL RBC (4.60-5.80) X10*6/uL Hgb (14.0-18.0) g/dl Hct (42.0-52.0) % MCV (80.0-98.0) fL MCH (27.0-33.0) pg MCHC (31.0-36.0) g/dl RDW (11.0-16.0) % Plt Count (160-400) X10*3/uL MPV (9.4-12.4) fL Immature Gran % (Auto) (0.0-0.4) % Neut % (Auto) (45-73) % Lymph % (Auto) (20-40) % [place] % (Auto) (2-11) % Eos % (Auto) (0-4) % Baso % (Auto) (0-2) % Lymph # (Auto) (1.2-4.9) X10*3/uL [place] # (Auto) (0.1-1.2) X10*3/uL Eos # (Auto) (0.0-0.4) X10*3/uL Baso # (Auto) (0.0-0.2) X10*3/uL Abs Immat Gran (auto) (0.00-0.03) X10*3/uL Absolute Neuts (auto) (2.0-8.3) x10*3/uL Absolute Nucleated RBC (0.0-0.012) X10*3/uL Nucleated RBC % (auto) (0.0-0.2) /100WBC PT (10.0-13.1) SEC INR (0.9-1.1) Sodium (135-145) mmol/L Potassium (3.3-5.1) mmol/L Chloride (96-108) mmol/L Carbon Dioxide (22-29) mmol/L Anion Gap (12-20) BUN (9-16) mg/dL Creatinine (0.5-1.4) mg/dL Estim Creat Clear Calc Estimated GFR POC Glucose 60 96 (60-115) mg/dL Random Glucose (60-115) mg/dL Calcium (8.4-10.2) mg/dL Magnesium (1.6-2.6) mg/dL Total Bilirubin (0.0-1.0) mg/dL AST (5-37) U/L ALT (0-40) U/L Alkaline Phosphatase (39-117) U/L Troponin I High Sens (<3.5-35.0) ng/L Total Protein (6.5-8.0) g/dL Albumin (3.5-5.0) g/dL Urine Color Urine Appearance Urine pH (5.0-9.0) Ur Specific [place] (1.005-1.025) Urine Protein (Neg-Trace) mg/dL Urine Glucose (UA) (Negative) mg/dL Urine Ketones (Negative) mg/dL Urine Blood (Negative) Urine Nitrite (Negative) Ur Leukocyte Esterase (Negative) COVID-19 (HELENA) Negative (Negative) COVID-19 Clin Com See Note 08/25/22 08/25/22 08/25/22 Range/Units 07:32 11:22 16:38 WBC (4.8-10.8) X10*3/uL RBC (4.60-5.80) X10*6/uL Hgb (14.0-18.0) g/dl Hct (42.0-52.0) % MCV (80.0-98.0) fL MCH (27.0-33.0) pg MCHC (31.0-36.0) g/dl RDW (11.0-16.0) % Plt Count (160-400) X10*3/uL MPV (9.4-12.4) fL Immature Gran % (Auto) (0.0-0.4) % Neut % (Auto) (45-73) % Lymph % (Auto) (20-40) % [place] % (Auto) (2-11) % Eos % (Auto) (0-4) % Baso % (Auto) (0-2) % Lymph # (Auto) (1.2-4.9) X10*3/uL [place] # (Auto) (0.1-1.2) X10*3/uL Eos # (Auto) (0.0-0.4) X10*3/uL Baso # (Auto) (0.0-0.2) X10*3/uL Abs Immat Gran (auto) (0.00-0.03) X10*3/uL Absolute Neuts (auto) (2.0-8.3) x10*3/uL Absolute Nucleated RBC (0.0-0.012) X10*3/uL Nucleated RBC % (auto) (0.0-0.2) /100WBC PT (10.0-13.1) SEC INR (0.9-1.1) Sodium (135-145) mmol/L Potassium (3.3-5.1) mmol/L Chloride (96-108) mmol/L Carbon Dioxide (22-29) mmol/L Anion Gap (12-20) BUN (9-16) mg/dL Creatinine (0.5-1.4) mg/dL Estim Creat Clear Calc Estimated GFR POC Glucose 85 209 H 100 (60-115) mg/dL Random Glucose (60-115) mg/dL Calcium (8.4-10.2) mg/dL Magnesium (1.6-2.6) mg/dL Total Bilirubin (0.0-1.0) mg/dL AST (5-37) U/L ALT (0-40) U/L Alkaline Phosphatase (39-117) U/L Troponin I High Sens (<3.5-35.0) ng/L Total Protein (6.5-8.0) g/dL Albumin (3.5-5.0) g/dL Urine Color Urine Appearance Urine pH (5.0-9.0) Ur Specific [place] (1.005-1.025) Urine Protein (Neg-Trace) mg/dL Urine Glucose (UA) (Negative) mg/dL Urine Ketones (Negative) mg/dL Urine Blood (Negative) Urine Nitrite (Negative) Ur Leukocyte Esterase (Negative) COVID-19 (HELENA) (Negative) COVID-19 Clin Com 08/25/22 08/25/22 08/26/22 Range/Units 19:58 20:43 07:48 WBC (4.8-10.8) X10*3/uL RBC (4.60-5.80) X10*6/uL Hgb (14.0-18.0) g/dl Hct (42.0-52.0) % MCV (80.0-98.0) fL MCH (27.0-33.0) pg MCHC (31.0-36.0) g/dl RDW (11.0-16.0) % Plt Count (160-400) X10*3/uL MPV (9.4-12.4) fL Immature Gran % (Auto) (0.0-0.4) % Neut % (Auto) (45-73) % Lymph % (Auto) (20-40) % [place] % (Auto) (2-11) % Eos % (Auto) (0-4) % Baso % (Auto) (0-2) % Lymph # (Auto) (1.2-4.9) X10*3/uL [place] # (Auto) (0.1-1.2) X10*3/uL Eos # (Auto) (0.0-0.4) X10*3/uL Baso # (Auto) (0.0-0.2) X10*3/uL Abs Immat Gran (auto) (0.00-0.03) X10*3/uL Absolute Neuts (auto) (2.0-8.3) x10*3/uL Absolute Nucleated RBC (0.0-0.012) X10*3/uL Nucleated RBC % (auto) (0.0-0.2) /100WBC PT (10.0-13.1) SEC INR (0.9-1.1) Sodium (135-145) mmol/L Potassium (3.3-5.1) mmol/L Chloride (96-108) mmol/L Carbon Dioxide (22-29) mmol/L Anion Gap (12-20) BUN (9-16) mg/dL Creatinine (0.5-1.4) mg/dL Estim Creat Clear Calc Estimated GFR POC Glucose 162 H 154 H 126 H (60-115) mg/dL Random Glucose (60-115) mg/dL Calcium (8.4-10.2) mg/dL Magnesium (1.6-2.6) mg/dL Total Bilirubin (0.0-1.0) mg/dL AST (5-37) U/L ALT (0-40) U/L Alkaline Phosphatase (39-117) U/L Troponin I High Sens (<3.5-35.0) ng/L Total Protein (6.5-8.0) g/dL Albumin (3.5-5.0) g/dL Urine Color Urine Appearance Urine pH (5.0-9.0) Ur Specific [place] (1.005-1.025) Urine Protein (Neg-Trace) mg/dL Urine Glucose (UA) (Negative) mg/dL Urine Ketones (Negative) mg/dL Urine Blood (Negative) Urine Nitrite (Negative) Ur Leukocyte Esterase (Negative) COVID-19 (HELENA) (Negative) COVID-19 Clin Com 08/26/22 08/26/22 08/26/22 Range/Units 10:26 11:43 16:18 WBC (4.8-10.8) X10*3/uL RBC (4.60-5.80) X10*6/uL Hgb (14.0-18.0) g/dl Hct (42.0-52.0) % MCV (80.0-98.0) fL MCH (27.0-33.0) pg MCHC (31.0-36.0) g/dl RDW (11.0-16.0) % Plt Count (160-400) X10*3/uL MPV (9.4-12.4) fL Immature Gran % (Auto) (0.0-0.4) % Neut % (Auto) (45-73) % Lymph % (Auto) (20-40) % [place] % (Auto) (2-11) % Eos % (Auto) (0-4) % Baso % (Auto) (0-2) % Lymph # (Auto) (1.2-4.9) X10*3/uL [place] # (Auto) (0.1-1.2) X10*3/uL Eos # (Auto) (0.0-0.4) X10*3/uL Baso # (Auto) (0.0-0.2) X10*3/uL Abs Immat Gran (auto) (0.00-0.03) X10*3/uL Absolute Neuts (auto) (2.0-8.3) x10*3/uL Absolute Nucleated RBC (0.0-0.012) X10*3/uL Nucleated RBC % (auto) (0.0-0.2) /100WBC PT (10.0-13.1) SEC INR (0.9-1.1) Sodium (135-145) mmol/L Potassium (3.3-5.1) mmol/L Chloride (96-108) mmol/L Carbon Dioxide (22-29) mmol/L Anion Gap (12-20) BUN (9-16) mg/dL Creatinine (0.5-1.4) mg/dL Estim Creat Clear Calc Estimated GFR POC Glucose 198 H 132 H 120 H (60-115) mg/dL Random Glucose (60-115) mg/dL Calcium (8.4-10.2) mg/dL Magnesium (1.6-2.6) mg/dL Total Bilirubin (0.0-1.0) mg/dL AST (5-37) U/L ALT (0-40) U/L Alkaline Phosphatase (39-117) U/L Troponin I High Sens (<3.5-35.0) ng/L Total Protein (6.5-8.0) g/dL Albumin (3.5-5.0) g/dL Urine Color Urine Appearance Urine pH (5.0-9.0) Ur Specific [place] (1.005-1.025) Urine Protein (Neg-Trace) mg/dL Urine Glucose (UA) (Negative) mg/dL Urine Ketones (Negative) mg/dL Urine Blood (Negative) Urine Nitrite (Negative) Ur Leukocyte Esterase (Negative) COVID-19 (HELENA) (Negative) COVID-19 Clin Com 08/26/22 08/27/22 08/27/22 Range/Units 19:58 07:16 11:38 WBC (4.8-10.8) X10*3/uL RBC (4.60-5.80) X10*6/uL Hgb (14.0-18.0) g/dl Hct (42.0-52.0) % MCV (80.0-98.0) fL MCH (27.0-33.0) pg MCHC (31.0-36.0) g/dl RDW (11.0-16.0) % Plt Count (160-400) X10*3/uL MPV (9.4-12.4) fL Immature Gran % (Auto) (0.0-0.4) % Neut % (Auto) (45-73) % Lymph % (Auto) (20-40) % [place] % (Auto) (2-11) % Eos % (Auto) (0-4) % Baso % (Auto) (0-2) % Lymph # (Auto) (1.2-4.9) X10*3/uL [place] # (Auto) (0.1-1.2) X10*3/uL Eos # (Auto) (0.0-0.4) X10*3/uL Baso # (Auto) (0.0-0.2) X10*3/uL Abs Immat Gran (auto) (0.00-0.03) X10*3/uL Absolute Neuts (auto) (2.0-8.3) x10*3/uL Absolute Nucleated RBC (0.0-0.012) X10*3/uL Nucleated RBC % (auto) (0.0-0.2) /100WBC PT (10.0-13.1) SEC INR (0.9-1.1) Sodium (135-145) mmol/L Potassium (3.3-5.1) mmol/L Chloride (96-108) mmol/L Carbon Dioxide (22-29) mmol/L Anion Gap (12-20) BUN (9-16) mg/dL Creatinine (0.5-1.4) mg/dL Estim Creat Clear Calc Estimated GFR POC Glucose 183 H 85 121 H (60-115) mg/dL Random Glucose (60-115) mg/dL Calcium (8.4-10.2) mg/dL Magnesium (1.6-2.6) mg/dL Total Bilirubin (0.0-1.0) mg/dL AST (5-37) U/L ALT (0-40) U/L Alkaline Phosphatase (39-117) U/L Troponin I High Sens (<3.5-35.0) ng/L Total Protein (6.5-8.0) g/dL Albumin (3.5-5.0) g/dL Urine Color Urine Appearance Urine pH (5.0-9.0) Ur Specific [place] (1.005-1.025) Urine Protein (Neg-Trace) mg/dL Urine Glucose (UA) (Negative) mg/dL Urine Ketones (Negative) mg/dL Urine Blood (Negative) Urine Nitrite (Negative) Ur Leukocyte Esterase (Negative) COVID-19 ([facility]) (Negative) COVID-19 Clin Com Independent Interpretation I performed an independent interpretation of an: EKG Interpretation: Normal sinus rhythm, rate 63bpm, normal FL and QT intervals, no evidence of STEMI Independent Historian Clinical information obtained from an independent historian. History obtained from or confirmed by: EMS External Record Review External record reviewed: Inpatient record, Office record and Outpatient record Chronic Conditions Patient?s care impacted by: Diabetes Discharge Plan Discharge Clinical Impression: Acute dehydration Patient Disposition: Still a Patient Prescriptions: No Action Enbrel SureClick 50 mg/mL (1 mL) pen injector 50 mg subcut QWEEK Qty: 12 1RF Rx Instructions: WEEKLY ON SATURDAY Farxiga 5 mg tablet 5 mg PO DAILY lisinopril 10 mg Tablet 10 mg PO DAILY Qty: 30 0RF Protocol: Hold for SBP< HOLD for SBP < : 90 Eliquis 5 mg Tablet 5 mg PO BID Qty: 60 0RF sennosides [senna] 8.6 mg Tablet 8.6 mg PO DAILY PRN (Reason: Constipation) acetaminophen 325 mg Tablet 650 mg PO Q6H PRN (Reason: Fever Or Pain) methotrexate sodium 10 mg Tablet 20 mg PO QWEEK Rx Instructions: WEEKLY ON FRIDAYS loperamide 2 mg Tablet 2 mg PO Q4H PRN (Reason: Loose Stool) Rx Instructions: administer after each loose stool until symptoms controlled; do not exceed 8 mg per 24 hrs bupropion HCl [Wellbutrin] 100 mg Tablet 100 mg PO BID folic acid 1 mg Tablet 1 mg PO DAILY Culturelle 10 billion cell Capsule 1 cap PO DAILY Humalog U-100 Insulin 100 unit/mL Cartridge 0 sliding scale dose subcut BID Rx Instructions: PLEASE CHECK BLOOD SUGAR BEFORE BREAKFAST AND DINNER BS 200-250 2 UNITS BS 251-300 4 UNITS BS 301-350 6 UNITS BS 351-400 8 UNITS glipizide 10 mg tablet extended release 24hr 10 mg PO BID insulin glargine [Lantus Solostar U-100 Insulin] 100 unit/mL (3 mL) insulin pen 35 unit subcut BEDTIME metformin 500 mg tablet extended release 24 hr 500 mg PO BID amlodipine 10 mg tablet 10 mg PO DAILY atorvastatin 20 mg tablet 20 mg PO DAILY furosemide 40 mg tablet 40 mg PO DAILY metoprolol tartrate 50 mg tablet 50 mg PO BID Referrals: [facility] [Outside]
[2022-08-24 13:45] VITALS: BP 140/59; PULSE 68; RESP 16; TEMP 36.8; O2SAT 98
--- NOTE | 2022-08-24 13:54 | ECG_ITS ---
Test Reason : SYNCOPE Blood Pressure : / mmHG Vent. Rate : 063 BPM Atrial Rate : 063 BPM P-R Int : 192 ms QRS Dur : 090 ms QT Int : 432 ms P-R-T Axes : 035 038 050 degrees QTc Int : 442 ms Normal sinus rhythm Normal ECG When compared with ECG of 25-JUL-2022 08:45, No significant change was found Referred By: Carli Marquis Electronically Signed By:CHAZ KNAPP MD
[2022-08-24 14:29] LABS: MANUAL DIFF FLAG NO
[2022-08-24 14:33] LABS: Basophils Absolute Auto 0.1 X10*3/uL (0.0-0.2); Basophils Percent Auto 0.5 % (0-2); Eosinophils Absolute Auto 0.2 X10*3/uL (0.0-0.4); Eosinophils Percent Auto 1.8 % (0-4); Hematocrit 41.1 % (42.0-52.0); Hemoglobin 13.4 g/dl (14.0-18.0); Imm Gran Abs Auto 0.05 X10*3/uL (0.00-0.03); Imm Gran Pct Auto 0.5 % (0.0-0.4); Lymphocytes Percent Auto 10.2 % (20-40); Mean Corpuscular HGB Conc 32.6 g/dl (31.0-36.0); Mean Corpuscular Hemoglobin 30.7 pg (27.0-33.0); Mean Corpuscular Volume 94.3 fL (80.0-98.0); Mean Platelet Volume 9.1 fL (9.4-12.4); Monocytes Absolute Auto 0.9 X10*3/uL (0.1-1.2); Monocytes Percent Auto 8.5 % (2-11); Neutrophils Absolute Auto 7.9 x10*3/uL (2.0-8.3); Neutrophils Percent Auto 78.5 % (45-73); Platelet Count 246 X10*3/uL (160-400); Red Blood Count 4.36 X10*6/uL (4.60-5.80); Red Cell Distribution Width 16.3 % (11.0-16.0)
[2022-08-24 14:40] VITALS: BP 132/62; PULSE 68; RESP 12; TEMP 36.8; O2SAT 93
[2022-08-24 14:49] LABS: INTERNATIONAL NORM RATIO 1.2 (0.9-1.1); Prothrombin Time 14.3 SEC (10.0-13.1)
[2022-08-24 14:53] LABS: Alanine Aminotransferase 12 U/L (0-40); Albumin Level 3.8 g/dL (3.5-5.0); Alkaline Phosphatase 139 U/L (39-117); Anion Gap 13 (12-20); Aspartate Amino Transferase 10 U/L (5-37); Bilirubin Total 0.6 mg/dL (0.0-1.0); Blood Urea Nitrogen 19 mg/dL (9-16); Calcium 9.2 mg/dL (8.4-10.2); Carbon Dioxide 26 mmol/L (22-29); Chloride 104 mmol/L (96-108); Creatinine Clr Calc Pharmacy 57.3; Estimated Glomerular Filt Rate > 60; Glucose Random 62 mg/dL (60-115); Magnesium 1.9 mg/dL (1.6-2.6); Potassium 4.5 mmol/L (3.3-5.1); Sodium 138 mmol/L (135-145)
[2022-08-24 15:10] LABS: Troponin-I High Sensitivity < 2.7 ng/L (<3.5-35.0)
[2022-08-24] MEDS: 0.9 % Sodium Chloride 1,000 ML 999 ML IV (15:28)
--- NOTE | 2022-08-24 15:37 | PC.NURSE ---
pt is aox4, denies any discomfort at this time. pt is nsr on monitor with strong radial pulses and nonlabored resps with clear bronchial and vesicular ls. neuros are normal pt has used urinal and has been cleaned pt does not feel he can care for himself at home. 20 ga iv est in r ac and ns infusing as ordered. awaiting U/A which has been sent will continue to monitor
[2022-08-24 15:51] LABS: Appearance Urine Clear; Color Urine Yellow; Glucose Urine UA Negative (Negative); Leukocyte Esterase Urine Negative (Negative); Nitrite Urine Negative (Negative); PH 5.5 (5.0-9.0); Urine Blood Negative (Negative); Urine Ketones Negative (Negative); Urine Protein Trace mg/dL (Neg-Trace)
--- NOTE | 2022-08-24 16:41 | MHC.CM.ED ---
Received case management consult from Lindsay MCHUGH. Patient came to the ER due to weakness. Physical therapy eval is pending. Met with patient in regards to discharge planning. Patient lives alone. Patient was discharged from [facility] today with the expectation that Tia PAYAN will follow patient in the community. Patient came to the ER due to weakness. Blood sugar was low. Patient aware physcial therapy eval will be done on Saturday. Patient aware he will spend the night in the ER. Patient agreeable to returning to [facility] if STR is needed. Referral made via [facility]. Continue to monitor for d/c needs.
[2022-08-24 20:08] LABS: Glucose, Whole Blood 110 mg/dL (60-115)
--- NOTE | 2022-08-24 21:46 | PC.NURSE ---
Pt has no meds ordered at all. He is a diabetic and his BG on admit was 62. He has no orders to check his FSBG or any orders for insulin.States he takes insulin. Provider Lawrence notified. BG was checked and was 110. Pharmacy is currently working on med reconciliation. Home meds list brought over to pharmacy. Pt is A&OX 3, Pleasant, on Ra. VSS, uses the urinal. Call light within reach, safety prec maintained.
--- NOTE | 2022-08-24 22:02 | PHA.MEDREC ---
Pharmacy Consult ? Medication Reconciliation Patient was Discharge from [facility] on 08/06/22 and went to rehab facility. Medication list was obtained from Facility date of discharge from facility 08/24/22.Pharmacy has completed the medication reconciliation.
[2022-08-24 23:31] VITALS: BP 150/67; PULSE 62; TEMP 36.7; O2SAT 94
[2022-08-24] MEDS: Metoprolol Tartrate 50 MG TABLET PO (23:40)
[2022-08-24] MEDS: glipiZIDE XL 10 MG TAB.ER.24 PO (23:40)
[2022-08-24] MEDS: metFORMIN HCl ER 500 MG TAB.ER.24H PO (23:40)
[2022-08-24] MEDS: Apixaban 5 MG TABLET PO (23:40)
[2022-08-24] MEDS: buPROPion HCL 100 MG TABLET PO (23:40)
[2022-08-25 00:13] LABS: COVID-19 Test Negative (Negative); IDNOW Serial# 9DB6401D
--- NOTE | 2022-08-25 05:54 | PC.NURSE ---
Addendum entered by Awa Zambrano RN 08/25/22 07:30: OJ was given and BG rechecked and was 96. Report given to oncoming RN. Addendum entered by Awa Zambrano RN 08/25/22 06:16: .Pt is A&OX3, awake and alert. provider Lawrence notified. Original Note: Pt BG at HS was 110. He received oral agents and was due for 35u lantus. Lantus was held. This am BG is 60. Pt awake/alert and talking.
[2022-08-25 06:01] LABS: Glucose, Whole Blood 60 mg/dL (60-115)
[2022-08-25 06:20] LABS: Glucose, Whole Blood 96 mg/dL (60-115)
[2022-08-25 06:27] VITALS: BP 131/45; PULSE 58; RESP 16; TEMP 36.6; O2SAT 96
[2022-08-25 07:35] LABS: Glucose, Whole Blood 85 mg/dL (60-115)
[2022-08-25] MEDS: glipiZIDE XL 10 MG TAB.ER.24 PO ×2 (07:45→21:45)
[2022-08-25] MEDS: Folic Acid 1 MG TABLET PO (07:45)
[2022-08-25] MEDS: amLODIPine Besylate 10 MG TABLET PO (07:45)
[2022-08-25] MEDS: Atorvastatin Calcium 20 MG TABLET PO (07:46)
[2022-08-25] MEDS: Metoprolol Tartrate 50 MG TABLET PO (07:46)
[2022-08-25] MEDS: lisinopriL 10 MG TABLET PO (07:46)
[2022-08-25] MEDS: Apixaban 5 MG TABLET PO ×2 (07:46→21:46)
[2022-08-25] MEDS: Furosemide 40 MG TABLET PO (07:47)
[2022-08-25 08:45] VITALS: BP 131/45; PULSE 58; O2SAT 96
--- NOTE | 2022-08-25 09:07 | MHC.CM.PN ---
EMR REVIEWED, P.T. RECOMMENDING STR, PT EVAL SENT VIA [facility] AND REQUESTED SNF GO FOR AUTH HOWEVER PT DOES HAVE [facility] MEDICARE AND UNLIKELY SNF WILL RECEIVE AUTH OVER W/E, CM WILL CONT TO FOLLOW.
--- NOTE | 2022-08-25 09:34 | PC.NURSE ---
Assumed care of patient at 0645, pt A&Ox3 and cooperative with care. Pt denies pain at this time. VSS. Pt was seen by PT this am, see PT note for details. Pharmacy contacted at 0845 for missing medications from Pyxis wellbutrin, metformin, and Jardiance, pt aware. Pt BS this am 85 insulin held, pt eating breakfast. VSS, all safety measures in place.
[2022-08-25] MEDS: Empagliflozin 10 MG TABLET PO (10:28)
[2022-08-25] MEDS: buPROPion HCL 100 MG TABLET PO ×2 (10:28→21:45)
[2022-08-25] MEDS: metFORMIN HCl ER 500 MG TAB.ER.24H PO ×2 (10:28→21:45)
[2022-08-25 11:28] LABS: Glucose, Whole Blood 209 mg/dL (60-115)
[2022-08-25 14:00] VITALS: BP 103/53; PULSE 65; RESP 16; TEMP 36.8; O2SAT 95
[2022-08-25 16:47] LABS: Glucose, Whole Blood 100 mg/dL (60-115)
--- NOTE | 2022-08-25 18:13 | PC.NURSE ---
Provider Kofi notified at 1234 via tiger text Pt pritesh held this am d/t pt having low blood sugars on prior shift. Pt blood sugar 209 at lunch Provider aware, no sliding scale insulin ordered. Blood sugar 100 at dinner, pt ate 100% for all meals.
--- NOTE | 2022-08-25 18:38 | PC.NURSE ---
Provider Merced Kirby informed per family request, by HCP Belen Hdz, that pt had had a procedure done 4-5 years ago involving VOCATIONAL EVALUATOR shunt placement . Family stated Pt had similar signs and symptoms involving dizziness before shunt was placed.
[2022-08-25 20:06] LABS: Glucose, Whole Blood 162 mg/dL (60-115)
[2022-08-25 20:49] LABS: Glucose, Whole Blood 154 mg/dL (60-115)
[2022-08-25 21:28] VITALS: BP 117/62; PULSE 58; RESP 18; TEMP 36.5; O2SAT 94
--- NOTE | 2022-08-25 21:32 | PC.NURSE ---
Pt A&OX3, awake and alert in bed. FSBG was 162 Pt said he wanted o hold off on taking insulin tonight d/t BG dropping. He then called and said he was feeling dizzy and like his BG was dropping. He requested to have his BG rechecked. It was 154. VSS 117/62, 58, 97.7, 94% ra. Lopressor held d/t low HR, and insulin refused by Pt. Pt will be given glipizide and metformin.
[2022-08-26 05:50] VITALS: BP 141/68; PULSE 66; RESP 15; TEMP 36.7; O2SAT 96
[2022-08-26 07:51] LABS: Glucose, Whole Blood 126 mg/dL (60-115)
[2022-08-26] MEDS: buPROPion HCL 100 MG TABLET PO ×2 (08:12→20:16)
[2022-08-26] MEDS: amLODIPine Besylate 10 MG TABLET PO (08:12)
[2022-08-26] MEDS: Furosemide 40 MG TABLET PO (08:12)
[2022-08-26] MEDS: lisinopriL 10 MG TABLET PO (08:12)
[2022-08-26] MEDS: Atorvastatin Calcium 20 MG TABLET PO (08:12)
[2022-08-26] MEDS: Apixaban 5 MG TABLET PO ×2 (08:12→20:16)
[2022-08-26] MEDS: Metoprolol Tartrate 50 MG TABLET PO ×2 (08:12→20:16)
[2022-08-26] MEDS: Folic Acid 1 MG TABLET PO (08:12)
[2022-08-26 08:18] VITALS: BP 136/65
[2022-08-26] MEDS: Acetaminophen 325 MG TABLET 650 MG PO ×2 (08:43→20:21)
[2022-08-26] MEDS: metFORMIN HCl ER 500 MG TAB.ER.24H PO ×2 (08:44→20:16)
[2022-08-26] MEDS: glipiZIDE XL 10 MG TAB.ER.24 PO ×2 (08:44→20:16)
[2022-08-26] MEDS: Empagliflozin 10 MG TABLET PO (10:24)
[2022-08-26 10:35] LABS: Glucose, Whole Blood 198 mg/dL (60-115)
[2022-08-26 11:46] LABS: Glucose, Whole Blood 132 mg/dL (60-115)
--- NOTE | 2022-08-26 13:41 | MHC.CM.PN ---
CM MET W/PT AND DTR/HCP DALILA [phone] PER MARY REQUEST. DALILA VOICED 2 CONCERNS, ONE WAS THAT SHE WAS WONDERING IF THERE WERE ANY OTHER FACILITIES THAN [facility] NO THAT WOULD BE AN OPTION FOR PT SHE THOUGHT HE WAS DISCHARGED TOO SOON FROM SNF AND DIDN'T LAST A DAY AT HOME BEFORE COMING BACK TO ED. CM HAS REQUESTED [facility] HOLD OFF ON REQUESTING AUTH AND REFERRAL HAS BEEN EXPEANDED. DALILA'S SECOND CONCERN IS THAT SHE IS CONCERNED REGARDING PT'S SHUNT, DALILA REPORTS THE LAST TIME PT HAD SIMILAR ISSUES W/AMBULATION HE ENDED UP W/THE SHUNT PLACED, CM HAS PASSED ALONG THESE CONCERNS W/ED PROVIDER VIA [employer]CT. ANTIC PT WILL NEED TO BE SEEN BY PT PRIOR TO INSURANCE AUTH PT HAS [facility] MEDICARE, NO CONFIRMED BED OFFERS OTHER THAN [facility] WHO REPORT THEY DID NOT GO FOR AUTH D/T NOT HAVING BED AVAILABILITY OVER W/E. CM WILL CONT TO FOLLOW.
[2022-08-26 14:00] VITALS: BP 112/54; PULSE 85; RESP 20; TEMP 36.4; O2SAT 92
[2022-08-26 15:18] VITALS: BP 119/62; PULSE 60; RESP 20; TEMP 37.3; O2SAT 93
[2022-08-26 16:25] LABS: Glucose, Whole Blood 120 mg/dL (60-115)
[2022-08-26 20:04] LABS: Glucose, Whole Blood 183 mg/dL (60-115)
[2022-08-26] MEDS: Insulin Glargine,Hum.rec.anlog 100 UNIT/ML 10 ML VIAL 35 UNIT SUBCUT (20:17)
[2022-08-27 05:34] VITALS: BP 125/65; PULSE 58; RESP 20; TEMP 36.3; O2SAT 97
[2022-08-27 07:19] LABS: Glucose, Whole Blood 85 mg/dL (60-115)
--- NOTE | 2022-08-27 10:03 | MHC.EDTECH ---
pt was assisted on bedpan, cleaned, fresh linen and warm blanket given
--- NOTE | 2022-08-27 10:08 | MHC.CM.ED ---
Addendum entered by Elizabeth Mcwilliams 08/27/22 12:59: Insurance auth has been obtained by [facility]. Patient can leave at 2pm. ANA LUISA TAM booked. Med nec with chart. Patient, daughter Belen, Dione RN and Luana MCGRATH aware. Per Belen, patient hasn't used cpap in years . Original Note: Patient remains in ER overflow. Head CT completed. No issues with shunt found. T/W spoke with patient's daughter, Belen, via telephone at [phone]. At this time, [facility] and [facility] are the only facilities that can offer a bed. Belen accepts [facility] Bed. [facility] has been asked to go for insurance auth. Continue to monitor for d/c needs.
[2022-08-27] MEDS: Furosemide 40 MG TABLET PO (10:30)
[2022-08-27] MEDS: buPROPion HCL 100 MG TABLET PO (10:30)
[2022-08-27] MEDS: lisinopriL 10 MG TABLET PO (10:31)
[2022-08-27] MEDS: glipiZIDE XL 10 MG TAB.ER.24 PO (10:31)
[2022-08-27] MEDS: Folic Acid 1 MG TABLET PO (10:31)
[2022-08-27] MEDS: amLODIPine Besylate 10 MG TABLET PO (10:31)
[2022-08-27] MEDS: metFORMIN HCl ER 500 MG TAB.ER.24H PO (10:31)
[2022-08-27] MEDS: Metoprolol Tartrate 50 MG TABLET PO (10:31)
[2022-08-27] MEDS: Empagliflozin 10 MG TABLET PO (10:31)
[2022-08-27] MEDS: Apixaban 5 MG TABLET PO (10:31)
[2022-08-27] MEDS: Atorvastatin Calcium 20 MG TABLET PO (10:32)
[2022-08-27 11:45] LABS: Glucose, Whole Blood 121 mg/dL (60-115)
[2022-08-27 13:56] VITALS: BP 120/62; PULSE 60; RESP 16; TEMP 36.4; O2SAT 94
== END 2022-08-27 14:02 | disposition skilled nursing facility (03) ==
PROVIDERS: Registered Nurse Emergency; Emergency Provider Emergency Medicine; PCP Internal Medicine
DX: E86.0 Dehydration (principal); R53.1 Weakness; Z20.822 Contact with and (suspected) exposure to COVID-19; E11.9 Type 2 diabetes mellitus without complications; I10 Essential (primary) hypertension; I48.0 Paroxysmal atrial fibrillation; Z79.02 Long term (current) use of antithrombotics/antiplatelets; Z79.899 Other long term (current) drug therapy; Z79.4 Long term (current) use of insulin; Z79.01 Long term (current) use of anticoagulants
CPT/HCPCS: 36415; 70450; 80053; 81003; 82947; 83735; 84484; 85025; 85610; 87635; 93005; 96360; 96361; 97162; 99285

== ENCOUNTER 2022-10-26 11:29 | Outpatient (AMB) | payer MEDICARE, SELFPAY ==
--- NOTE | 2022-10-26 11:31 | MHC.OFFVIS ---
Intake Vital Signs 10/26/22 11:32 Height 5 ft 8 in Weight 171 lb 11.841 oz BMI 26.1 BP 106/72 Blood Pressure Location Rt brachial Position Sitting Pulse 59 Pulse Source Pulse Oximeter Temp 97.9 F Temp Source Skin Pulse Oximetry (%) 94 Intake Visit Reasons: PSA/Gout Intake Note: Pt seen today for PsA/Gout. States his knees are killing him Daughter reports pt was hospitalized for sepsis in Apr, then went to rehab; caught covid, s/p gallbladder surgery Working on strength and stability in legs. Enbrel was discontinued for a while and restarted in August. PCP visit in 2 weeks to review meds. 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: No Accompanied by: Daughter Allergies famotidine [From Pepcid] Allergy (Intermediate, Verified 10/26/22 11:36) Hallucinations Medication List - Last Reconciled 10/26/22 by Jay Baker MD acetaminophen 650 mg PO Q6H PRN amlodipine 10 mg PO DAILY apixaban (Eliquis) 5 mg PO BID atorvastatin 20 mg PO DAILY bupropion HCl 100 mg PO BID dapagliflozin propanediol (Farxiga) 5 mg PO DAILY etanercept (Enbrel SureClick) 50 mg subcut QWEEK folic acid 1 mg PO DAILY furosemide 40 mg PO DAILY glipizide ER 10 mg PO BID insulin glargine (Lantus Solostar U-100 Insulin) 35 units subcut BEDTIME insulin lispro (Humalog U-100 Insulin) PLEASE CHECK BLOOD SUGAR BEFORE BREAKFAST AND DINNER BS 200-250 2 UNITS BS 251-300 4 UNITS BS 301-350 6 UNITS BS 351-400 8 UNITS Lactobacillus rhamnosus GG (Culturelle) 1 cap PO DAILY lisinopril 10 mg See Protocol PO DAILY loperamide 2 mg PO Q4H PRN metformin ER 500 mg PO BID methotrexate sodium 20 mg PO QWEEK metoprolol tartrate 50 mg PO BID sennosides (senna) 8.6 mg PO DAILY PRN HPI HPI Comments History of Present Illness Details 77-year-old male with a past medical history of psoriasis,psoriatic arthritis and gout is here for follow-up. Patient was last seen in the office 01/2022. Back in April patient was admitted to the hospital with sepsis. He was then discharged he was readmitted to the hospital with acute cholecystitis and ultimately had open cholecystectomy. He then went to rehab for a few weeks and returned home by mid August. Patient has been off most of his rheumatologic medications since his admission in April. He restarted his Enbrel 6-7 weeks ago. He has not been taking the methotrexate, allopurinol or colchicine. He had a gout flare-up in the hospital that was treated with prednisone. Patient states that he has pain in all his joints including his knees, back, ankles. Since he started the Enbrel is arthritis symptoms all over have improved. Patient lives alone, now uses a walker to get around. Walks with difficulty. He is more weak. Initial history: 76-year-old male with complicated past medical history presents for evaluation of psoriatic arthritis. He was diagnosed was psoriatic arthropathy 2001, (failed sulfasalazine) methotrexate started 01/30.? Enbrel added December 2008.? Stopped 09/02 (cost issues) Remicade started 02/02 but stopped October 2018 (cost issues) methotrexate continued. Continues to take methotrexate 7 tabs weekly. About 3 weeks ago he noticed pain and swelling of his right hand and wrist associated with stiffness. Occasionally he would have lower back pain that wakes him up from sleep associated with morning stiffness improved with walking around. No other joint pain or swelling. His psoriasis has been well controlled. Denies history of uveitis. 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 New onset a-fib Normal pressure hydrocephalus Obstructive sleep apnea Paroxysmal atrial fibrillation Paroxysmal atrial flutter Protein malnutrition Psoriasis Psoriatic arthritis Restless leg syndrome Screening-pulmonary TB Surgical History History of cholecystectomy (07/26/22) Social History Household Members: None Household Members Other:: lives alone Housing: House Do you presently have visiting nurse or other home services: No Alcohol intake: never Patient Tobacco Use Status: Never used Tobacco e-Cigarette/Vaping Use: Never Used Advance Directives Date on File: 08/07/22 service: No Current occupational status: retired 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 [facility] [employer] [facility] [employer] Reports back pain, Reports arthralgias, Reports limited range of motion and Reports stiffness Skin/Breast Details: Minor psoriatic patches behind both ears Physical Exam Vital Signs: Last Vital Signs Temp 97.9 F 10/26/22 11:32 Pulse 59 10/26/22 11:32 BP 106/72 10/26/22 11:32 Pulse Ox 94 10/26/22 11:32 BMI result Body Mass Index 26.1 Const General: cooperative, healthy appearing, comfortable and no acute distress Orientation/consciousness: patient oriented x3 Limitations: ambulation with walker HEENT Head: Yes normocephalic and Yes atraumatic Resp Effort & Inspection: normal respiratory effort and able to speak in complete sentences Skin Other: 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) Small psoriatic patch on his left forearm Neuro General: patient oriented x3 Extrem Other: No wrist swelling or tenderness or pain with full range of motion Left 2nd 3rd PIP is a tenderness without significant swelling Mild right knee swelling and tenderness and pain with full flexion Left ankle swelling and tenderness Positive straight leg raise test on the left and equivocal Stephane's test Assessment & Plan Assessment & Plan (1) Psoriatic arthritis: Comment: dx around 2001 SSZ ineffective MTX 01/30 Enbrel added 2008 DC 09/02 (cost issues) Enbrel restarted 12/14 effective Code(s): L40.50 - Arthropathic psoriasis, unspecified Plan: 77-year-old male with psoriatic arthritis returns for follow-up. Patient was last seen in clinic 01/2022. He was admitted multiple times for sepsis and ultimately at open cholecystectomy. His medications were held for long period of time while hospitalized. Enbrel was restarted 6 weeks ago with some improvement but continues to have multiple swollen and tender joints. Resume Enbrel 50 mg once weekly. Restart methotrexate 20 mg once weekly and folic acid 1 mg daily. 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 Has not been on his medications for many months. Initial uric acid level above 10, then reduce to 9.3 after allopurinol was started. Will check uric acid level. Restart allopurinol 200 mg daily. Check LFTs before colchicine can be restarted. Plan to start at 1 tab daily (3) Psoriasis: Code(s): L40.9 - Psoriasis, unspecified Plan: Only a few small patches on his forearm and some behind his ears. Patient isn't interested in applying topical steroids if needed. Plan I spent 49 minutes reviewing patient's chart, evaluating patient, ordering diagnostic workup, counseling patient and documenting in the chart Orders: Orders Complete Blood Count Auto Diff Today L40.50 - Arthropathic psoriasis, unspecified Comprehensive Met. Panel Today L40.50 - Arthropathic psoriasis, unspecified C Reactive Protein Today L40.50 - Arthropathic psoriasis, unspecified Erythrocyte Sedimentation Rate Today L40.50 - Arthropathic psoriasis, unspecified Uric Acid Today M10.9 - Gout, unspecified Medications: New methotrexate sodium 20 mg (8 x 2.5 mg) PO QWEEK 96 tabs 0RF folic acid 1 mg PO DAILY 90 tabs 1RF Refilled allopurinol 200 mg (2 x 100 mg) PO DAILY 180 tabs 1RF Discontinued glipizide ER 5 mg (1/2 x 10 mg) PO BID 60 tabs 0RF insulin glargine 30 units (0.3 mL) subcut BEDTIME 15 mL 0RF Coding Level of Care Code Est Pt Level 5 (94805) Diagnoses Psoriatic arthritis L40.50 Gout M1A.0390 Gout site: wrist Gout etiology: idiopathic Chronicity: chronic Laterality: unspecified laterality Presence of tophus: without tophus Psoriasis L40.9
[2022-10-26 11:32] VITALS: BP 106/72; PULSE 59; TEMP 36.6; O2SAT 94; BMI 26.1
== END 2022-10-26 12:49 | disposition home or self-care (01) ==
PROVIDERS: PCP Internal Medicine; Visit Provider Student in an Organized Health Care Education/Training Program
DX: L40.50 Arthropathic psoriasis, unspecified (principal); M1A.0390 Idiopathic chronic gout, unspecified wrist, without tophus (tophi); L40.9 Psoriasis, unspecified
CPT/HCPCS: 99215

== ENCOUNTER → 2022-10-26 11:29 | Outpatient (BNVA) | payer MEDICARE, SELFPAY | PROVIDERS: Visit Provider Student in an Organized Health Care Education/Training Program ==

== ENCOUNTER 2022-10-26 12:47 | Outpatient (REF) | payer MEDICARE, SELFPAY ==
[2022-10-26 13:18] LABS: MANUAL DIFF FLAG NO
[2022-10-26 13:27] LABS: Basophils Percent Auto 0.4 % (0-2); Eosinophils Absolute Auto 0.1 X10*3/uL (0.0-0.4); Eosinophils Percent Auto 0.9 % (0-4); Hemoglobin 15.4 g/dl (14.0-18.0); Imm Gran Abs Auto 0.03 X10*3/uL (0.00-0.03); Imm Gran Pct Auto 0.4 % (0.0-0.4); Lymphocytes Absolute Auto 1.8 X10*3/uL (1.2-4.9); Lymphocytes Percent Auto 22.5 % (20-40); Mean Corpuscular HGB Conc 32.1 g/dl (31.0-36.0); Mean Corpuscular Hemoglobin 30.1 pg (27.0-33.0); Mean Corpuscular Volume 93.9 fL (80.0-98.0); Mean Platelet Volume 10.3 fL (9.4-12.4); Monocytes Absolute Auto 0.8 X10*3/uL (0.1-1.2); Monocytes Percent Auto 9.9 % (2-11); Neutrophils Absolute Auto 5.2 x10*3/uL (2.0-8.3); Neutrophils Percent Auto 65.9 % (45-73); Platelet Count 279 X10*3/uL (160-400); Red Blood Count 5.11 X10*6/uL (4.60-5.80); Red Cell Distribution Width 14.4 % (11.0-16.0); White Blood Count 7.9 X10*3/uL (4.8-10.8)
[2022-10-26 14:12] LABS: Erythrocyte Sedimentation Rate 11 MM/HR (0-15)
[2022-10-26 15:16] LABS: Alanine Aminotransferase 17 U/L (0-40); Albumin Level 3.9 g/dL (3.5-5.0); Alkaline Phosphatase 113 U/L (39-117); Anion Gap 17 (12-20); Aspartate Amino Transferase 11 U/L (5-37); Bilirubin Total 0.4 mg/dL (0.0-1.0); Blood Urea Nitrogen 26 mg/dL (9-16); Calcium 9.3 mg/dL (8.4-10.2); Carbon Dioxide 23 mmol/L (22-29); Chloride 103 mmol/L (96-108); Estimated Glomerular Filt Rate 56; Glucose Random 201 mg/dL (60-115); Potassium 4.5 mmol/L (3.3-5.1); Sodium 138 mmol/L (135-145); Total Protein 7.4 g/dL (6.5-8.0); Uric Acid 8.8 mg/dL (3.4-7.0)
== END 2022-10-26 12:48 | disposition home or self-care (01) ==
LOC: HO.10HDL 12:47
PROVIDERS: Visit Provider Student in an Organized Health Care Education/Training Program
DX: L40.50 Arthropathic psoriasis, unspecified (principal); M1A.0390 Idiopathic chronic gout, unspecified wrist, without tophus (tophi)
CPT/HCPCS: 36415; 80053; 84550; 85025; 85652; 86140; 99212

== ENCOUNTER 2023-05-25 08:32 | Outpatient (REF) | payer MEDICARE, SELFPAY ==
[2023-05-25 09:02] LABS: MANUAL DIFF FLAG NO
[2023-05-25 10:09] LABS: Basophils Percent Auto 0.4 % (0-2); Eosinophils Absolute Auto 0.1 X10*3/uL (0.0-0.4); Eosinophils Percent Auto 1.1 % (0-4); Hematocrit 51.2 % (42.0-52.0); Hemoglobin 16.8 g/dl (14.0-18.0); Imm Gran Abs Auto 0.02 X10*3/uL (0.00-0.03); Imm Gran Pct Auto 0.3 % (0.0-0.4); Lymphocytes Absolute Auto 1.7 X10*3/uL (1.2-4.9); Lymphocytes Percent Auto 22.6 % (20-40); Mean Corpuscular HGB Conc 32.8 g/dl (31.0-36.0); Mean Corpuscular Hemoglobin 30.3 pg (27.0-33.0); Mean Corpuscular Volume 92.3 fL (80.0-98.0); Mean Platelet Volume 10.5 fL (9.4-12.4); Monocytes Absolute Auto 0.8 X10*3/uL (0.1-1.2); Monocytes Percent Auto 10.7 % (2-11); Neutrophils Absolute Auto 4.8 x10*3/uL (2.0-8.3); Neutrophils Percent Auto 64.9 % (45-73); Platelet Count 240 X10*3/uL (160-400); Red Blood Count 5.55 X10*6/uL (4.60-5.80); Red Cell Distribution Width 13.1 % (11.0-16.0); White Blood Count 7.3 X10*3/uL (4.8-10.8)
[2023-05-25 10:19] LABS: Alanine Aminotransferase 36 U/L (0-40); Albumin Level 3.9 g/dL (3.5-5.0); Alkaline Phosphatase 126 U/L (39-117); Anion Gap 17 (12-20); Aspartate Amino Transferase 16 U/L (5-37); Bilirubin Total 0.5 mg/dL (0.0-1.0); Blood Urea Nitrogen 33 mg/dL (9-16); C Reactive Protein 0.38 mg/dL (< or = 0.50); Calcium 9.7 mg/dL (8.4-10.2); Carbon Dioxide 25 mmol/L (22-29); Chloride 102 mmol/L (96-108); Estimated Glomerular Filt Rate 50; Glucose Random 249 mg/dL (60-115); Potassium 4.7 mmol/L (3.3-5.1); Sodium 139 mmol/L (135-145); Total Protein 7.4 g/dL (6.5-8.0); Uric Acid 9.4 mg/dL (3.4-7.0)
[2023-05-25 10:51] LABS: Erythrocyte Sedimentation Rate 9 MM/HR (0-15)
[2023-05-27 09:04] LABS: HBsAGNum1 0.36 S/CO (0.00-0.99); Hepatitis B Core Antibody Nonreactive (Nonreactive); Hepatitis B Surface Antigen Negative (Negative); ~HepC Num1 0.34 S/CO (0.00-0.79); ~Hepatitis A Antibody IgM Nonreactive (Nonreactive); ~Hepatitis B Surface Antibody NONREACTIVE (Nonreactive); ~Hepatitis C Antibody Nonreactive (Nonreactive)
== END 2023-05-25 08:33 | disposition home or self-care (01) ==
LOC: HO.LAB 08:32
PROVIDERS: PCP Internal Medicine; Visit Provider Student in an Organized Health Care Education/Training Program
DX: Z11.59 Encounter for screening for other viral diseases (principal); M1A.0390 Idiopathic chronic gout, unspecified wrist, without tophus (tophi); L40.50 Arthropathic psoriasis, unspecified; Z72.89 Other problems related to lifestyle
CPT/HCPCS: 36415; 80053; 84550; 85025; 85652; 86140; 86704; 86706; 86709; 86803; 87340

== ENCOUNTER 2023-06-06 14:24 | Outpatient (REF) | payer MEDICARE, SELFPAY ==
[2023-06-09 06:44] LABS: TS Negative Control Passed; TS Panel A 0; TS Panel B 0; TS Positive Control Passed; TSpotTB Negative (Negative)
== END 2023-06-06 14:25 | disposition home or self-care (01) ==
LOC: HO.LAB 14:24
PROVIDERS: PCP Internal Medicine; Visit Provider Student in an Organized Health Care Education/Training Program
DX: Z11.7 Encounter for testing for latent tuberculosis infection (principal)
CPT/HCPCS: 36415; 86481

== ENCOUNTER 2023-10-23 09:39 | Outpatient (AMB) | payer MEDICARE, SELFPAY ==
[2023-10-23 09:44] VITALS: BP 118/62; PULSE 61; O2SAT 96; BMI 25.5
--- NOTE | 2023-10-23 09:44 | MHC.OFFVIS ---
Vital Signs 10/23/23 09:44 Height 5 ft 8 in Weight 167 lb 15.876 oz BMI 25.5 BP 118/62 Blood Pressure Location Lt brachial Position Sitting Pulse 61 Pulse Source Pulse Oximeter Pulse Oximetry (%) 96 Oxygen Delivery Method Room Air Intake Visit Reasons: PSA/GOUT/CM Intake Note: Patient last seen 10/26/22 presents today for follow up and test results Accompanied by: Daughter Allergies famotidine [From Pepcid] Allergy (Intermediate, Verified 10/23/23 09:46) Hallucinations Medication List - Last Reconciled 10/23/23 by Jay Baker MD acetaminophen 650 mg PO Q6H PRN allopurinol 200 mg (2 x 100 mg) PO DAILY amlodipine 10 mg PO DAILY apixaban (Eliquis) 5 mg PO BID atorvastatin 20 mg PO DAILY bupropion HCl 100 mg PO BID colchicine 0.6 mg PO DAILY dapagliflozin propanediol (Farxiga) 5 mg PO DAILY Enbrel SureClick (etanercept) 50 mg subcut QWEEK NS flash glucose sensor (FreeStyle Car 2 Sensor kit) As directed furosemide 40 mg PO DAILY glipizide ER 10 mg PO BID insulin glargine (Lantus Solostar U-100 Insulin) 35 units subcut BEDTIME insulin lispro (Humalog U-100 Insulin) PLEASE CHECK BLOOD SUGAR BEFORE BREAKFAST AND DINNER BS 200-250 2 UNITS BS [phone] 4 UNITS BS [phone] 6 UNITS BS [phone] 8 UNITS Lactobacillus rhamnosus GG (Culturelle) 1 cap PO DAILY lisinopril 10 mg See Protocol PO DAILY loperamide 2 mg PO Q4H PRN metformin ER 500 mg PO BID metoprolol tartrate 50 mg PO BID sennosides (senna) 8.6 mg PO DAILY PRN sertraline 25 mg PO DAILY HPI Comments Details: 78-year-old male with a with psoriasis, psoriatic arthritis and gout presents for follow-up. He is here with his daughter. Since last year when had a prolonged hospitalization followed by rehab patient has not been the same. I last saw him here about a year ago. Patient has been depressed, not taking care of himself. He lives alone. Per daughter he has not been taking his meds regularly however over the last month they have been giving him all his medicines. He is complaining of bilateral knee pain and stiffness as well as low back pain. His daughter thinks that he should get up and move a little bit more. patient is frustrated that his personal driver's license was taken away from him. Initial history: 76-year-old male with complicated past medical history presents for evaluation of psoriatic arthritis. He was diagnosed was psoriatic arthropathy 2001, (failed sulfasalazine) methotrexate started 01/30.? Enbrel added December 2008.? Stopped 09/02 (cost issues) Remicade started 02/02 but stopped October 2018 (cost issues) methotrexate continued. Continues to take methotrexate 7 tabs weekly. About 3 weeks ago he noticed pain and swelling of his right hand and wrist associated with stiffness. Occasionally he would have lower back pain that wakes him up from sleep associated with morning stiffness improved with walking around. No other joint pain or swelling. His psoriasis has been well controlled. Denies history of uveitis. He had a colonoscopy sometime within the past 5 years and was reportedly normal [facility] Medical History Gout Leukocytosis Paroxysmal atrial flutter Gallstones Abnormal LFTs Paroxysmal atrial fibrillation Cardiomegaly Protein malnutrition Immunosuppression due to drug therapy New onset a-fib 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, long term care administrator, current use Back pain Screening-pulmonary TB Encounter for screening for other viral diseases ADHD Hypertension Psoriatic arthritis Obstructive sleep apnea Normal pressure hydrocephalus Restless leg syndrome Diabetic retinopathy Psoriasis Diabetes Surgical History History of cholecystectomy (07/26/22) Social History Household Members: None Household Members Other:: lives alone Housing: House Do you presently have visiting nurse or other home services: No Alcohol intake: never Patient Tobacco Use Status: Never used Tobacco e-Cigarette/Vaping Use: Never Used Advance Directives Date on File: 08/07/22 service: No 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 occupational status: 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 Review of Systems [facility] [place] [facility] [place] Reports back pain, Reports arthralgias, Reports limited range of motion and Reports stiffness Physical Exam Vital Signs: Last Vital Signs Pulse 61 10/23/23 09:44 BP 118/62 10/23/23 09:44 Pulse Ox 96 10/23/23 09:44 Oxygen Delivery Method Room Air 07/31/24 09:44 BMI result Body Mass Index 25.5 Const General: cooperative, healthy appearing, comfortable and no acute distress Orientation/consciousness: patient oriented x3 Limitations: ambulation with walker HEENT Head: Yes normocephalic and Yes atraumatic Resp Effort & Inspection: normal respiratory effort and able to speak in complete sentences Skin Other: 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 Patient was last seen in clinic 10/2022. Since his hospitalization last year followed by rehab patient has not been the same. He has been more depressed. He has lost some level of functionality. Per daughter patient has not been taking care of himself, not taking his meds regularly. However over the last month patient's daughter have been giving him his Enbrel, methotrexate and allopurinol. I think patient's psoriatic arthritis is well controlled. Given lack of consistent follow-up and blood work I will discontinue methotrexate and folic acid as methotrexate requires regular office visits and blood work. 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 Patient had not been taking allopurinol until the last month. He is on 200 mg daily. Check uric acid level today and adjust allopurinol dose accordingly. I do not think patient needs colchicine at this time (3) Psoriasis: Code(s): L40.9 - Psoriasis, unspecified Category: Medical Plan: No active psoriasis patches today (4) Bilateral primary osteoarthritis of knee: Code(s): M17.0 - Bilateral primary osteoarthritis of knee Category: Medical Plan: Discussed different treatment options, discussed steroid injections per daughter patient's diabetes has not been well controlled. I will check his HbA1c. I suggested PT. Daughter prefers home PT. I chronic PT, she will contact his insurance plan. Other options include gel injections (5) Depression: Code(s): F32.A - Depression, unspecified Category: Medical Qualifiers: Depression Type: major depressive disorder Major depression episode severity: moderate Plan: Follow-up with PCP Plan I spent 49 minutes reviewing patient's chart, evaluating patient, ordering diagnostic workup, counseling patient and documenting in the chart Orders: Orders PT Evaluation and Treatment Today M17.0 - Bilateral primary osteoarthritis of knee Complete Blood Count Auto Diff Today L40.50 - Arthropathic psoriasis, unspecified Comprehensive Met. Panel Today L40.50 - Arthropathic psoriasis, unspecified C Reactive Protein Today L40.50 - Arthropathic psoriasis, unspecified Uric Acid Today M1A.0390 - Idiopathic chronic gout, unspecified wrist, without tophus (tophi) Complete Blood Count Auto Diff 6 Months L40.50 - Arthropathic psoriasis, unspecified Comprehensive Met. Panel 6 Months L40.50 - Arthropathic psoriasis, unspecified Erythrocyte Sedimentation Rate Today L40.50 - Arthropathic psoriasis, unspecified Hemoglobin A1c Today E11.65 - Type 2 diabetes mellitus with hyperglycemia C Reactive Protein 6 Months L40.50 - Arthropathic psoriasis, unspecified Erythrocyte Sedimentation Rate 6 Months L40.50 - Arthropathic psoriasis, unspecified Uric Acid 6 Months M1A.0390 - Idiopathic chronic gout, unspecified wrist, without tophus (tophi) Hemoglobin A1c 6 Months E11.65 - Type 2 diabetes mellitus with hyperglycemia Medications: Discontinued colchicine Discontinued Reason: Doctor's Order 0.6 mg PO DAILY 10 tabs 0RF Coding Level of Care Code Est Pt Level 5 (79673) Complex EM visit Add On G2211 Diagnoses Psoriatic arthritis L40.50 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
== END 2023-10-23 10:13 | disposition home or self-care (01) ==
PROVIDERS: PCP Internal Medicine; Visit Provider Student in an Organized Health Care Education/Training Program
DX: L40.50 Arthropathic psoriasis, unspecified (principal); M1A.0390 Idiopathic chronic gout, unspecified wrist, without tophus (tophi); L40.9 Psoriasis, unspecified; M17.0 Bilateral primary osteoarthritis of knee; F32.A Depression, unspecified
CPT/HCPCS: 99215; G2211

== ENCOUNTER → 2023-10-23 09:39 | Outpatient (BNVA) | payer MEDICARE, SELFPAY | PROVIDERS: PCP Internal Medicine; Visit Provider Student in an Organized Health Care Education/Training Program | DX: L40.50 Arthropathic psoriasis, unspecified (principal); L40.9 Psoriasis, unspecified; M1A.0390 Idiopathic chronic gout, unspecified wrist, without tophus (tophi); M17.0 Bilateral primary osteoarthritis of knee; F32.A Depression, unspecified | CPT/HCPCS: 36415; 80053; 83036; 84550; 85025; 85652; 86140; 99212 ==

== ENCOUNTER 2023-10-23 10:51 | Outpatient (REF) | payer MEDICARE, SELFPAY ==
[2023-10-23 12:27] LABS: MANUAL DIFF FLAG NO
[2023-10-23 12:40] LABS: Estimated Average Glucose 163 mg/dL; Hemoglobin A1c % 7.3 % (<6.0)
[2023-10-23 12:41] LABS: Basophils Percent Auto 0.4 % (0-2); Eosinophils Absolute Auto 0.1 X10*3/uL (0.0-0.4); Eosinophils Percent Auto 0.9 % (0-4); Hematocrit 35.4 % (42.0-52.0); Hemoglobin 10.9 g/dl (14.0-18.0); Imm Gran Abs Auto 0.03 X10*3/uL (0.00-0.03); Imm Gran Pct Auto 0.4 % (0.0-0.4); Lymphocytes Absolute Auto 1.1 X10*3/uL (1.2-4.9); Lymphocytes Percent Auto 16.4 % (20-40); Mean Corpuscular HGB Conc 30.8 g/dl (31.0-36.0); Mean Corpuscular Volume 81.2 fL (80.0-98.0); Mean Platelet Volume 10.2 fL (9.4-12.4); Monocytes Absolute Auto 0.7 X10*3/uL (0.1-1.2); Monocytes Percent Auto 9.9 % (2-11); Neutrophils Absolute Auto 4.9 x10*3/uL (2.0-8.3); Platelet Count 297 X10*3/uL (160-400); Red Blood Count 4.36 X10*6/uL (4.60-5.80); White Blood Count 6.8 X10*3/uL (4.8-10.8)
[2023-10-23 12:42] LABS: Alanine Aminotransferase 15 U/L (0-40); Albumin Level 4.3 g/dL (3.5-5.0); Alkaline Phosphatase 97 U/L (39-117); Anion Gap 13 (12-20); Aspartate Amino Transferase 12 U/L (5-37); Bilirubin Total 0.3 mg/dL (0.0-1.0); Blood Urea Nitrogen 31 mg/dL (9-16); C Reactive Protein 0.28 mg/dL (< or = 0.50); Calcium 9.7 mg/dL (8.4-10.2); Carbon Dioxide 24 mmol/L (22-29); Chloride 107 mmol/L (96-108); Estimated Glomerular Filt Rate 59; Glucose Random 136 mg/dL (60-115); Potassium 4.6 mmol/L (3.3-5.1); Sodium 139 mmol/L (135-145); Total Protein 7.7 g/dL (6.5-8.0)
[2023-10-23 13:16] LABS: Erythrocyte Sedimentation Rate 19 MM/HR (0-15)
== END 2023-10-23 10:52 | disposition home or self-care (01) ==
LOC: HO.10HDL 10:51
PROVIDERS: Visit Provider Student in an Organized Health Care Education/Training Program
DX: Z13.89 Encounter for screening for other disorder (principal)
CPT/HCPCS: 36415; 80053; 83036; 84550; 85025; 85652; 86140

== ENCOUNTER 2023-10-25 10:22 | Emergency (ER) | payer MEDICARE, SELFPAY ==
--- NOTE | ~2023-10-25 | XR_ITS ---
EXAMINATION: XR TIBIA AND FIBULA, RIGHT CLINICAL INFORMATION: Injury. Laceration to the skin. COMPARISON: None available. TECHNIQUE: AP and lateral views of the right tibia and fibula were obtained. FINDINGS: There is no fracture or dislocation. There are degenerative changes of the knee. The regional soft tissue is normal in appearance. No radiopaque foreign object. XR/XR tibia fibula RT 2V IMPRESSION: No fracture or dislocation. No obvious soft tissue defect.
[2023-10-25 10:35] VITALS: BP 143/58; BP 156/74; PULSE 72; RESP 18; TEMP 36.5; O2SAT 97; BMI 27.9
--- NOTE | 2023-10-25 11:19 | ED_ITS ---
HPI - General Adult General Chief complaint: Wound/Laceration Stated complaint: LAC ON R CALF Time Seen by Provider: 10/25/23 11:11 Source: patient and EMS Mode of arrival: EMS Limitations: no limitations History of Present Illness ED Provider: Sarah Underwood PA-C HPI narrative: Patient is a 78 year old assigned male at with a history of depression and DM presenting to the emergency department today with right lower leg pain. Patient states that several days ago he hit his right lower leg on a metal bed frame. Patient states that he did not fall or have any loss of consciousness. Patient denies any dizziness, lightheadedness, abdominal pain, nausea, vomiting, fever, chills, blurry vision, double vision, loss of vision, chest pain, difficulty breathing, shortness of breath, back pain, night sweats, pain with urination, increased urinary frequency, increased urinary urgency, blood in his urine or stool, syncope or a near syncopal episode, bowel incontinence, bladder incontinence, or any other complaints at this time. Onset (ago): day(s) Location: right and lower extremity Radiation: non-radiation Severity: mild Severity scale (1-10): 4 Quality: aching and dull Pain Consistency: constant Relieving factors: none Exacerbating factors: none Associated symptoms: denies other symptoms Treatments prior to arrival: none Related Data Home Medications ?Medication ?Instructions ?Recorded ?Confirmed amlodipine 10 mg tablet 10 mg PO DAILY 11/22/21 10/26/22 atorvastatin 20 mg tablet 20 mg PO DAILY 11/22/21 10/26/22 furosemide 40 mg tablet 40 mg PO DAILY 11/22/21 10/26/22 metoprolol tartrate 50 mg tablet 50 mg PO BID 11/22/21 10/26/22 metformin 500 mg tablet,extended 500 mg PO BID 06/18/22 10/26/22 release 24 hr dapagliflozin propanediol 5 mg 5 mg PO DAILY 07/19/22 10/26/22 tablet (Farxiga) Lactobacillus rhamnosus GG 10 1 cap PO DAILY 08/24/22 10/26/22 billion cell capsule (Culturelle) acetaminophen 325 mg tablet 650 mg PO Q6H PRN Fever Or Pain 08/24/22 10/26/22 bupropion HCl 100 mg tablet 100 mg PO BID 08/24/22 10/26/22 glipizide 10 mg tablet, extended 10 mg PO BID 08/24/22 10/26/22 release 24 hr insulin glargine 100 unit/mL (3 35 unit subcut BEDTIME 08/24/22 10/26/22 mL) subcutaneous pen (Lantus Solostar U-100 Insulin) insulin lispro 100 unit/mL 0 sliding scale dose subcut BID 08/24/22 10/26/22 subcutaneous cartridge (Humalog U-100 Insulin) loperamide 2 mg tablet 2 mg PO Q4H PRN Loose Stool 08/24/22 10/26/22 sennosides 8.6 mg tablet (senna) 8.6 mg PO DAILY PRN Constipation 08/24/22 10/26/22 flash glucose sensor (FreeStyle 10/23/23 Car 2 Sensor kit) sertraline 25 mg tablet 25 mg PO DAILY 10/23/23 Previous Rx's ?Medication ?Instructions ?Recorded apixaban 5 mg tablet (Eliquis) 5 mg PO BID #60 tabs 08/06/22 lisinopril 10 mg tablet 10 mg PO DAILY #30 tabs 08/06/22 Enbrel SureClick 50 mg/mL (1 mL) 50 mg subcut QWEEK #4 mL 10/07/23 subcutaneous pen injector (etanercept) allopurinol 100 mg tablet 200 mg (2 x 100 mg) PO DAILY #180 10/23/23 tabs cephalexin 500 mg capsule 500 mg PO Q6H 7 days #28 caps 10/25/23 doxycycline hyclate 100 mg capsule 100 mg PO BID 7 days #14 caps 10/25/23 Allergies Allergy/AdvReac Type Severity Reaction Status Date / Time famotidine [From Pepcid] Allergy Intermediate Hallucinati Verified 10/25/23 10:39 ons Review of Systems 2 Constitutional: Constitutional: Reports no additional constitutional complaints, Denies chills, Denies fever(s) and Denies night sweats Eyes: Eyes: Reports no additional eye complaints, Denies blurry vision, Denies change in vision, Denies diplopia, Denies eye discharge, Denies loss of vision and Denies eye pain ENT: Denies dizziness Cardiovascular: Cardiovascular: Reports no additional cardiovascular complaints, Denies chest pain, Denies lightheadedness, Denies Loss of Consciousness and Denies dyspnea Respiratory: Respiratory: Reports no additional respiratory complaints and Denies dyspnea Gastrointestinal: Gastrointestinal: Reports no additional gastrointestinal complaints, Denies abdominal pain, Denies melena, Denies hematochezia, Denies change in bowel habits and Denies change in stool character Genitourinary: Genitourinary: Reports no additional male genitourinary complaints, Denies hematuria, Denies oliguria, Denies difficulty urinating, Denies dysuria, Denies urinary frequency, Denies urinary hesitancy, Denies urinary incontinence and Denies urinary urgency Musculoskeletal: Musculoskeletal: Reports no additional musculoskeletal complaints, Denies numbness and Denies tingling Comments: right lower leg laceration Neurologic: Denies dizziness, Denies loss of vision, Denies numbness and Denies tingling Psychiatric: Psychiatric: Reports no additional psychiatric complaints Endocrine: Endocrine: Reports no additional endocrine complaints Hematologic/Lymphatic: Hematologic/Lymphatic: Reports no additional hematologic/lymphatic complaints Allergic/Immunologic: Allergic/Immunologic: Reports no additional allergic/immunologic complaints PMFSH Past Medical History Attestation statement: The following information was validated with the patient. Source: old records reviewed and nursing notes reviewed Medical History Gout Leukocytosis Paroxysmal atrial flutter Gallstones Abnormal LFTs Paroxysmal atrial fibrillation Cardiomegaly Protein malnutrition Immunosuppression due to drug therapy New onset a-fib 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, emt intermediate, current use Back pain Screening-pulmonary TB Encounter for screening for other viral diseases ADHD Hypertension Psoriatic arthritis Obstructive sleep apnea Normal pressure hydrocephalus Restless leg syndrome Diabetic retinopathy Psoriasis Diabetes Surgical History History of cholecystectomy (07/26/22) Social History Social History Household Members: None Household Members Other:: lives alone Housing: House Do you presently have visiting nurse or other home services: No Alcohol intake: never Patient Tobacco Use Status: Never used Tobacco e-Cigarette/Vaping Use: Never Used Advance Directives: Yes Advance Directives on File: Yes Advance Directives Date on File: 08/07/22 Do you have a plan to hurt others: No Plan service: No Current occupational status: retired 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 Physical Exam ED Vital Signs: Vital Signs - 24 hr 10/25/23 10:35 10/25/23 11:31 10/25/23 14:00 Temperature 97.7 F 98.9 F 98.7 F Pulse Rate 72 81 97 Respiratory Rate 18 18 19 Blood Pressure 143/58 H 137/54 L 169/91 H Pulse Oximetry 97 95 94 Oxygen Delivery Method Room Air Room Air Room Air BMI result Body Mass Index 27.9 Const General: cooperative, no acute distress, alert and awake Nutritional Appearance: well nourished Orientation/consciousness: patient oriented x3 Limitations: no limitations HENMT Head: Yes normal to inspection and Yes atraumatic Ears: hearing grossly normal bilaterally and external ears normal General nose exam: Normal external nose present, no nasal discharge noted and no epistaxis Face and sinus: Yes normal facial exam, No abrasion and No laceration Mouth: Normal oral and palatal mucosa present, no drooling and no muffled voice Eyes General: appearance normal, both eyes and all related structures Periorbital: periorbital findings normal Eyelids: Yes eyelids normal Conjunctivae: conjunctivae normal Pupils: Equal, round and reactive pupils present EOM: EOMs intact bilaterally Neck Neck: Yes normal visual inspection, Yes full ROM and Yes no lymphadenopathy Chest Chest palpation & inspection: normal inspection of the chest Resp Effort & Inspection: normal respiratory effort and able to speak in complete sentences GI Inspection: Yes normal to inspection Neuro General: patient oriented x3 and moves all extremities Cranial nerves: Yes Equal, round and reactive pupils present Cognition (Neuro): normal cognition Extrem Other: General: Yes full ROM and Yes capillary refill normal Psych Appearance: grossly normal Mental Status: mental status grossly normal Affect: normal affect Attitude: cooperative Thought process: Normal thought process present Thought content: Normal thought content present Insight: Good insight present (Psych) Medications Administered Discontinued Medications Generic Name Dose Route Start Last Admin Trade Name Freq PRN Reason Stop Dose Admin Cephalexin HCl 500 mg 10/25/23 13:00 10/25/23 13:12 Cephalexin 500 Mg Capsule PO 10/25/23 13:01 500 mg ONCE ONE Administration Doxycycline Monohydrate 100 mg 10/25/23 13:00 10/25/23 13:11 Doxycycline Monohydrate 100 Mg Capsule PO 10/25/23 13:01 100 mg ONCE ONE Administration Medical Decision Making Medical Decision Making MDM Narrative: Patient is a 78 year old assigned male at with a history of depression and DM presenting to the emergency department today with a right lower leg laceration. Patient's physical exam was as noted in the physical exam portion of this note. Patient's right lower leg x-ray showed no acute process. Patient's clinical presentation is most consistent with RLE cellulitis. Unfortunately, due to the unknown length of time and obvious infection, the wound will not be manually closed. I explained my physical exam findings as well as all test results to the patient and the patient's daughter Gris. I answered all questions asked by the patient and the patient's daughter Gris. Patient was given his first dose of antibiotics while in the department. I stressed the importance of the patient taking his medication as directed (either prescribed or as the over the counter packaging recommends). I stressed the importance of the patient following up with his primary care provider. I stressed the importance of the patient returning to the emergency department immediately if his symptoms were to worsen or if he were to develop any dizziness, shortness of breath, difficulty breathing, chest pain, blurry vision, loss of vision, nausea, vomiting, abdominal pain, fever, chills, back pain, or any other complaints. Patient verbalized agreement and understanding with this treatment plan and discharge. Differential Diagnosis Differential Diagnoses: The differential diagnosis associated with the presentation includes Lower leg laceration Cellulitis Admission/Observation Consideration of admission/observation: Escalation of care including admission/observation considered Patient would have been admitted to the hospital had his work up had any findings where hospital admission was appropriate and his clinical presentation warranted hospital admission. Independent Interpretation I performed an independent interpretation of an: Plain X-Ray Interpretation: My interpretation is in agreement with the radiologist's impression of this imaging study. - EXAMINATION: XR TIBIA AND FIBULA, RIGHT CLINICAL INFORMATION: Injury. Laceration to the skin. COMPARISON: None available. TECHNIQUE: AP and lateral views of the right tibia and fibula were obtained. FINDINGS: There is no fracture or dislocation. There are degenerative changes of the knee. The regional soft tissue is normal in appearance. No radiopaque foreign object. XR/XR tibia fibula RT 2V IMPRESSION: No fracture or dislocation. No obvious soft tissue defect. Dictated By: Arya Contreras Jr, DO Signed By: Electronically signed by Arya Contreras Jr, DO 10/25/23 1401 Radiology Impression Discussion of test interpretation with radiology: I have reviewed the radiologist's reading. Independent Historian Clinical information obtained from an independent historian. History obtained from or confirmed by: EMS (EMS provided additional history and confirmed the history provided by the patient.) Prescription Management I considered prescription management with: Antibiotic (patient prescribed 2 antibiotics for RLE cellulitis) Chronic Conditions Patient?s care impacted by: Diabetes Discharge Plan Discharge Clinical Impression: Acute cellulitis, Laceration of leg Patient Disposition: Home, Self-Care Instructions: Cellulitis (DC), Laceration Without Closure (ED) Additional Instructions: Follow up with your primary care provider and the wound center. Take your medication as directed. Return to the emergency department immediately if your symptoms worsen or if you develop any dizziness, shortness of breath, difficulty breathing, chest pain, blurry vision, loss of vision, nausea, vomiting, abdominal pain, fever, chills, back pain, or any other complaints. Prescriptions: New cephalexin 500 mg capsule 500 mg PO Q6H 7 Days Qty: 28 0RF doxycycline hyclate 100 mg capsule 100 mg PO BID 7 Days Qty: 14 0RF No Action Enbrel SureClick 50 mg/mL (1 mL) pen injector 50 mg subcut QWEEK Qty: 4 2RF allopurinol 100 mg tablet 200 mg PO DAILY Qty: 180 1RF Farxiga 5 mg tablet 5 mg PO DAILY lisinopril 10 mg Tablet 10 mg PO DAILY Qty: 30 0RF Protocol: Hold for SBP< HOLD for SBP < : 90 Eliquis 5 mg Tablet 5 mg PO BID Qty: 60 0RF sennosides [senna] 8.6 mg Tablet 8.6 mg PO DAILY PRN (Reason: Constipation) acetaminophen 325 mg Tablet 650 mg PO Q6H PRN (Reason: Fever Or Pain) loperamide 2 mg Tablet 2 mg PO Q4H PRN (Reason: Loose Stool) Rx Instructions: administer after each loose stool until symptoms controlled; do not exceed 8 mg per 24 hrs bupropion HCl [Wellbutrin] 100 mg Tablet 100 mg PO BID Culturelle 10 billion cell Capsule 1 cap PO DAILY Humalog U-100 Insulin 100 unit/mL Cartridge 0 sliding scale dose subcut BID Rx Instructions: PLEASE CHECK BLOOD SUGAR BEFORE BREAKFAST AND DINNER BS 200-250 2 UNITS BS 251-300 4 UNITS BS 301-350 6 UNITS BS 351-400 8 UNITS glipizide 10 mg tablet extended release 24hr 10 mg PO BID insulin glargine [Lantus Solostar U-100 Insulin] 100 unit/mL (3 mL) insulin pen 35 unit subcut BEDTIME metformin 500 mg tablet extended release 24 hr 500 mg PO BID amlodipine 10 mg tablet 10 mg PO DAILY atorvastatin 20 mg tablet 20 mg PO DAILY furosemide 40 mg tablet 40 mg PO DAILY metoprolol tartrate 50 mg tablet 50 mg PO BID sertraline 25 mg tablet 25 mg PO DAILY (DME) FreeStyle Car 2 Sensor Kit See Rx Instructions .Route Rx Instructions: As directed Referrals: [facility] [place] Wound Care Management [Provider Group] (Call to establish and follow up with the wound center. ) Jesenia Bynum MD [Primary Care Provider] - Print Language: Ecuadorean
[2023-10-25 11:31] VITALS: BP 137/54; PULSE 81; RESP 18; TEMP 37.2; O2SAT 95
--- NOTE | 2023-10-25 11:32 | MHC.EDTECH ---
I went to pt room to introduce myself, checked pt vital signs, gave pt call ramirez and informed to call ramirez if he will need anything.
[2023-10-25] MEDS: Doxycycline Monohydrate 100 MG CAPSULE PO (13:11)
[2023-10-25] MEDS: cephALEXin 500 MG CAPSULE PO (13:12)
[2023-10-25 14:00] VITALS: BP 169/91; PULSE 97; RESP 19; TEMP 37.1; O2SAT 94
[2023-10-25 14:59] VITALS: BP 169/91; PULSE 97; RESP 19; TEMP 37.1; O2SAT 94
== END 2023-10-25 15:00 | disposition home or self-care (01) ==
PROVIDERS: Emergency Provider Student in an Organized Health Care Education/Training Program; PCP Internal Medicine
DX: L03.115 Cellulitis of right lower limb (principal); S81.811A Laceration without foreign body, right lower leg, initial encounter; W22.03XA Walked into furniture, initial encounter; E11.9 Type 2 diabetes mellitus without complications; Y93.89 Activity, other specified; Y92.013 Bedroom of single-family (private) house as the place of occurrence of the external cause; Y99.9 Unspecified external cause status
CPT/HCPCS: 73590; 99283; 99284

== ENCOUNTER 2024-02-26 12:48 | Outpatient (RCR) | payer MEDICARE, SELFPAY | END 2024-04-16 15:28 | disposition home or self-care (01) | LOC: HO.WCC 12:48 | PROVIDERS: PCP Internal Medicine; Visit Provider Surgery | DX: Z09 Encounter for follow-up examination after completed treatment for conditions other than malignant neoplasm (principal); I87.301 Chronic venous hypertension (idiopathic) without complications of right lower extremity; E11.9 Type 2 diabetes mellitus without complications; Z86.31 Personal history of diabetic foot ulcer | CPT/HCPCS: 11042; 29581; 97597; 99212; 99213 ==

== ENCOUNTER 2024-05-22 05:28 | Emergency (ER) | payer MEDICARE, SELFPAY ==
[2024-05-22] VITALS (7 sets, daily range): BP systolic 162–183; BP diastolic 79–90; PULSE 70–82; RESP 12–18; TEMP 36–36.9; O2SAT 94–98; BMI 30.4
--- NOTE | 2024-05-22 | ECG_ITS ---
Test Reason : fall Blood Pressure : */* mmHG Vent. Rate : 70 BPM Atrial Rate : 70 BPM P-R Int : 154 ms QRS Dur : 82 ms QT Int : 402 ms P-R-T Axes : 50 45 82 degrees QTcB Int : 434 ms Normal sinus rhythm Normal ECG When compared with ECG of 24-Aug-2022 14:05, Nonspecific T wave abnormality now evident in Lateral leads Referred By: Generic ED Physician Electronically Signed By: Martínez Gee
--- NOTE | ~2024-05-22 | XR_ITS ---
CLINICAL HISTORY: fall, pain Exam: AP and lateral views of the right knee. Comparison: None. Findings: Bony alignment is anatomic. No acute fracture. Small knee joint effusion with calcification along the suprapatellar recess. Moderate to severe tricompartmental osteoarthritis with joint space narrowing and osteophyte formation. This is most pronounced within the patellofemoral joint. Chondrocalcinosis is seen within both the medial and lateral compartments. No erosions. Impression: 1. No acute fracture. 2. 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 This document has been electronically signed by: Bo Tapia MD on 05/22/2024 07:19:28
--- NOTE | 2024-05-22 05:40 | MHC.EDTECH ---
pt brought in via EMS and settled into stretcher, VS taken and stable, BP increased, RN aware
[2024-05-22 06:07] LABS: MANUAL DIFF FLAG NO
[2024-05-22 06:09] LABS: Basophils Percent Auto 0.6 % (0-2); Eosinophils Absolute Auto 0.2 X10*3/uL (0.0-0.4); Eosinophils Percent Auto 2.5 % (0-4); Hematocrit 40.7 % (42.0-52.0); Hemoglobin 12.6 g/dl (14.0-18.0); Imm Gran Abs Auto 0.02 X10*3/uL (0.00-0.03); Imm Gran Pct Auto 0.3 % (0.0-0.4); Lymphocytes Absolute Auto 1.3 X10*3/uL (1.2-4.9); Lymphocytes Percent Auto 19.5 % (20-40); Mean Corpuscular Hemoglobin 23.6 pg (27.0-33.0); Mean Corpuscular Volume 76.1 fL (80.0-98.0); Mean Platelet Volume 9.8 fL (9.4-12.4); Monocytes Absolute Auto 0.9 X10*3/uL (0.1-1.2); Monocytes Percent Auto 13.2 % (2-11); Neutrophils Absolute Auto 4.2 x10*3/uL (2.0-8.3); Neutrophils Percent Auto 63.9 % (45-73); Platelet Count 248 X10*3/uL (160-400); Red Blood Count 5.35 X10*6/uL (4.60-5.80); Red Cell Distribution Width 18.6 % (11.0-16.0); White Blood Count 6.5 X10*3/uL (4.8-10.8)
[2024-05-22 06:26] LABS: Alanine Aminotransferase 41 U/L (0-40); Albumin Level 3.5 g/dL (3.5-5.0); Alkaline Phosphatase 140 U/L (39-117); Anion Gap 11 (12-20); Aspartate Amino Transferase 39 U/L (5-37); Bilirubin Total 0.2 mg/dL (0.0-1.0); Blood Urea Nitrogen 31 mg/dL (9-16); Calcium 8.7 mg/dL (8.4-10.2); Carbon Dioxide 24 mmol/L (22-29); Chloride 105 mmol/L (96-108); Creatinine Clr Calc Pharmacy 54.9; Estimated Glomerular Filt Rate 58; Glucose Random 305 mg/dL (60-115); Sodium 135 mmol/L (135-145); Total Protein 7.3 g/dL (6.5-8.0)
[2024-05-22] MEDS: traMADoL HCL 50 MG TABLET PO (06:45)
--- NOTE | 2024-05-22 07:46 | ED_ITS ---
HPI - Fall General Chief Complaint: Fall Stated Complaint: fall Time Seen by Provider: 05/22/24 06:34 Source: patient and EMS Mode of arrival: EMS Limitations: no limitations History of Present Illness ED Provider: Fabiola Potts NP HPI Narrative: Patient is a 79-year-old male presents emergency department via EMS for evaluation. He reports that he was attempting to get up from his bed this morning to go to the bathroom. Reports before he was even able to sit up on the edge of the bed he had rolled himself over to the side to get out. He reports that he has a hospital style bed, and the edges become quite deflated. He could feel himself ready to fall when he was rolling towards his right side, he ultimately attempted to roll back over towards his left side was able to grab onto the left railing. However, his bilateral knees had dropped down to the ground on the right side of the bed. He endorses chronic right knee pain the head became exacerbated during this fall. He was able to push his life Alert button and call for help. There was no associated head strike or loss of consciousness. He has not attempted to ambulate or bear weight on the knee since this injury. At baseline he states that he ambulates with a walker. Related Data Home Medications ?Medication ?Instructions ?Recorded ?Confirmed amlodipine 10 mg tablet 10 mg PO DAILY 11/22/21 10/26/22 atorvastatin 20 mg tablet 20 mg PO DAILY 11/22/21 10/26/22 furosemide 40 mg tablet 40 mg PO DAILY 11/22/21 10/26/22 metoprolol tartrate 50 mg tablet 50 mg PO BID 11/22/21 10/26/22 metformin 500 mg tablet,extended 500 mg PO BID 06/18/22 10/26/22 release 24 hr dapagliflozin propanediol 5 mg 5 mg PO DAILY 07/19/22 10/26/22 tablet (Farxiga) Lactobacillus rhamnosus GG 10 1 cap PO DAILY 08/24/22 10/26/22 billion cell capsule (Culturelle) acetaminophen 325 mg tablet 650 mg PO Q6H PRN Fever Or Pain 08/24/22 10/26/22 bupropion HCl 100 mg tablet 100 mg PO BID 08/24/22 10/26/22 glipizide 10 mg tablet, extended 10 mg PO BID 08/24/22 10/26/22 release 24 hr insulin glargine 100 unit/mL (3 35 unit subcut BEDTIME 08/24/22 10/26/22 mL) subcutaneous pen (Lantus Solostar U-100 Insulin) insulin lispro 100 unit/mL 0 sliding scale dose subcut BID 08/24/22 10/26/22 subcutaneous cartridge (Humalog U-100 Insulin) loperamide 2 mg tablet 2 mg PO Q4H PRN Loose Stool 08/24/22 10/26/22 sennosides 8.6 mg tablet (senna) 8.6 mg PO DAILY PRN Constipation 08/24/22 10/26/22 flash glucose sensor (FreeStyle 10/23/23 Car 2 Sensor kit) sertraline 25 mg tablet 25 mg PO DAILY 10/23/23 Previous Rx's ?Medication ?Instructions ?Recorded apixaban 5 mg tablet (Eliquis) 5 mg PO BID #60 tabs 08/06/22 lisinopril 10 mg tablet 10 mg PO DAILY #30 tabs 08/06/22 allopurinol 100 mg tablet 200 mg (2 x 100 mg) PO DAILY #180 10/23/23 tabs cephalexin 500 mg capsule 500 mg PO Q6H 7 days #28 caps 10/25/23 doxycycline hyclate 100 mg capsule 100 mg PO BID 7 days #14 caps 10/25/23 Enbrel SureClick 50 mg/mL (1 mL) 50 mg subcut QWEEK #4 mL 02/24/24 subcutaneous pen injector (etanercept) Allergies Allergy/AdvReac Type Severity Reaction Status Date / Time famotidine [From Pepcid] Allergy Intermediate Hallucinati Verified 05/22/24 05:48 ons Review of Systems 2 Review of Systems: Yes all other systems are reviewed and are negative [facility] Past Medical History Attestation statement: The following information was validated with the patient. Source: old records reviewed Medical History Chronic kidney disease, stage 3 unspecified Gout Leukocytosis Paroxysmal atrial flutter Gallstones Abnormal LFTs Paroxysmal atrial fibrillation Cardiomegaly Protein malnutrition Immunosuppression due to drug therapy New onset a-fib 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, fdc, current use Back pain Screening-pulmonary TB Encounter for screening for other viral diseases ADHD Hypertension Psoriatic arthritis Obstructive sleep apnea Normal pressure hydrocephalus Restless leg syndrome Diabetic retinopathy Psoriasis Diabetes Surgical History H/O umbilical hernia repair History of cholecystectomy (07/26/22) Family History Family History (Updated 01/09/24 @ 13:16 by Jessica Lam MA) Father Myocardial infarct Diabetes Mother Arthritis Social History Social History Household Members: None Household Members Other:: lives alone Housing: House Do you presently have visiting nurse or other home services: No Alcohol intake: never Patient Tobacco Use Status: Never used Tobacco Smoked in Last 30 Days: No e-Cigarette/Vaping Use: Never Used Use of substances other than those prescribed or required for medical reasons: No Advance Directives: No Advance Directives Information Provided: Yes Advance Directives Date on File: 08/07/22 service: No Current occupational status: 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 No acute distress.?Normal affect. Head: Normocephalic, atraumatic Eyes: Pupils equal, round and reactive to light.? EOMI. No palpable periorbital deformities or ecchymosis ENT: Pharynx normal.??TM normal bilaterally. No rhinorrhea. No septal hematoma. TM normal bilaterally Neck: Normal inspection.? Neck supple.??No midline cervical spine tenderness, step-offs, deformities. Back: No midline thoracic or lumbar spine tenderness, step-offs, deformities. CVS: Heart sounds normal. Normal heart rate and rhythm.? Pulses normal.?? Respiratory: No respiratory distress.? Lung sounds clear to auscultation bilaterally?? Abdomen: Soft and non-tender. Normoactive bowel sounds Skin: Skin warm and dry.? Normal skin color.? Extremities: No lower extremity edema.? No calf ttp. Full range of motion to bilateral upper and left lower extremity. Decreased flexion to the right knee, held in full extension without difficulty, no erythema warmth or effusion or obvious deformity to the right knee. 2+ DP/PT pulse, 2+ radial pulse bilaterally. Neuro: Moves all extremities spontaneously. Sensation intact bilaterally. CN II- XII intact. No focal neuro deficits. Course Reevaluation(s) Reevaluation #1: Physical therapy with recommendations for discharge home he was able to ambulate with the use of a walker. Case management involved, arranging for transportation back to home with visiting nurse services. 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 Right knee is without obvious deformity, erythema or warmth, no effusion. Has not attempted to ambulate or weightbear since then. Will obtain XR to exclude fracture dislocation, pain may be secondary to contusion or sprain. We will attempt analgesia with tramadol at this time. If no acute osseous abnormality will attempt ambulatory trial as at baseline he gets around with a walker, if unable to ambulate, will re-evaluate and consider PT/case management evaluation. Patient to be provided breakfast, will also receive insulin lispro 5 units subQ for hyperglycemia Differential Diagnosis Differential Diagnoses: The differential diagnosis associated with the presentation includes (See narrative above) Admission/Observation Consideration of admission/observation: Escalation of care including admission/observation considered Lab Data MDM Lab Attestation statement: I reviewed the patient's lab results. CBC is without leukocytosis, has a chronic microcytic anemia that is stable with baseline, no thrombocytopenia. No electrolyte derangement. No GAIL. Non-anion gap hyperglycemia. 05/22/24 06:02 05/22/24 06:02 Labs: Lab Results 05/22/24 05/22/24 05/22/24 Range/Units 06:02 10:14 14:18 WBC 6.5 (4.8-10.8) X10*3/uL RBC 5.35 D (4.60-5.80) X10*6/uL Hgb 12.6 L (14.0-18.0) g/dl Hct 40.7 L (42.0-52.0) % MCV 76.1 L (80.0-98.0) fL MCH 23.6 L (27.0-33.0) pg MCHC 31.0 (31.0-36.0) g/dl RDW 18.6 H (11.0-16.0) % Plt Count 248 (160-400) X10*3/uL MPV 9.8 (9.4-12.4) fL Immature Gran % (Auto) 0.3 (0.0-0.4) % Neut % (Auto) 63.9 (45-73) % Lymph % (Auto) 19.5 L (20-40) % Sherman % (Auto) 13.2 H (2-11) % Eos % (Auto) 2.5 (0-4) % Baso % (Auto) 0.6 (0-2) % Lymph # (Auto) 1.3 (1.2-4.9) X10*3/uL Sherman # (Auto) 0.9 (0.1-1.2) X10*3/uL Eos # (Auto) 0.2 (0.0-0.4) X10*3/uL Baso # (Auto) 0.0 (0.0-0.2) X10*3/uL Abs Immat Gran (auto) 0.02 (0.00-0.03) X10*3/uL Absolute Neuts (auto) 4.2 (2.0-8.3) x10*3/uL Absolute Nucleated RBC 0.000 (0.0-0.012) X10*3/uL Nucleated RBC % (auto) 0.0 (0.0-0.2) /100WBC Hold Blue Top SEE NOTE Sodium 135 (135-145) mmol/L Potassium 5.0 (3.3-5.1) mmol/L Chloride 105 (96-108) mmol/L Carbon Dioxide 24 (22-29) mmol/L Anion Gap 11 L (12-20) BUN 31 H (9-16) mg/dL Creatinine 1.21 (0.5-1.4) mg/dL Estim Creat Clear Calc 54.9 Estimated GFR 58 Random Glucose 305 H (60-115) mg/dL Calcium 8.7 D (8.4-10.2) mg/dL Total Bilirubin 0.2 (0.0-1.0) mg/dL AST 39 H (5-37) U/L ALT 41 H (0-40) U/L Alkaline Phosphatase 140 H (39-117) U/L Total Protein 7.3 (6.5-8.0) g/dL Albumin 3.5 (3.5-5.0) g/dL Urine Color Yellow Urine Appearance Clear Urine pH 7.5 (5.0-9.0) Ur Specific [place] 1.015 (1.005-1.025) Urine Protein 100 (2+) H (Neg-Trace) mg/dL Urine Glucose (UA) >=1000 H (Negative) mg/dL Urine Ketones Negative (Negative) mg/dL Urine Blood Negative (Negative) Urine Nitrite Negative (Negative) Ur Leukocyte Esterase Negative (Negative) Urine RBC 0-2 (0-2) /HPF Urine WBC 0-5 (0-5) /HPF Ur Squamous Epith Cells 0-2 (0-2) /HPF Urine Bacteria None Seen (None Seen) Hyaline Casts 0-2 (0-2) /LPF Influenza Type A (PCR) NEGATIVE (Negative) Influenza Type B (PCR) NEGATIVE (Negative) RSV RNA Qual (PCR) NEGATIVE (Negative) SARS-CoV-2 RNA (RT-PCR) NEGATIVE (Negative) Independent Interpretation I performed an independent interpretation of an: Plain X-Ray ( no acute fracture/ dislocation) Radiology Impression Discussion of test interpretation with radiology: I have reviewed the radiologist's reading. Radiologist Impression: Exam: AP and lateral views of the right knee. Comparison: None. Findings: Bony alignment is anatomic. No acute fracture. Small knee joint effusion with calcification along the suprapatellar recess. Moderate to severe tricompartmental osteoarthritis with joint space narrowing and osteophyte formation. This is most pronounced within the patellofemoral joint. Chondrocalcinosis is seen within both the medial and lateral compartments. No erosions. Impression: 1. No acute fracture. 2. 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 Independent Historian Clinical information obtained from an independent historian. History obtained from or confirmed by: EMS External Record Review External record reviewed: Outpatient record Discharge Plan Discharge Clinical Impression: Degenerative arthritis Patient Disposition: Home, Self-Care Prescriptions: No Action allopurinol 100 mg tablet 200 mg PO DAILY Qty: 180 1RF Enbrel SureClick 50 mg/mL (1 mL) pen injector 50 mg subcut QWEEK Qty: 4 3RF Farxiga 5 mg tablet 5 mg PO DAILY lisinopril 10 mg Tablet 10 mg PO DAILY Qty: 30 0RF Protocol: Hold for SBP< HOLD for SBP < : 90 Eliquis 5 mg Tablet 5 mg PO BID Qty: 60 0RF cephalexin 500 mg capsule 500 mg PO Q6H 7 Days Qty: 28 0RF doxycycline hyclate 100 mg capsule 100 mg PO BID 7 Days Qty: 14 0RF sennosides [senna] 8.6 mg Tablet 8.6 mg PO DAILY PRN (Reason: Constipation) acetaminophen 325 mg Tablet 650 mg PO Q6H PRN (Reason: Fever Or Pain) loperamide 2 mg Tablet 2 mg PO Q4H PRN (Reason: Loose Stool) Rx Instructions: administer after each loose stool until symptoms controlled; do not exceed 8 mg per 24 hrs bupropion HCl [Wellbutrin] 100 mg Tablet 100 mg PO BID Culturelle 10 billion cell Capsule 1 cap PO DAILY Humalog U-100 Insulin 100 unit/mL Cartridge 0 sliding scale dose subcut BID Rx Instructions: PLEASE CHECK BLOOD SUGAR BEFORE BREAKFAST AND DINNER BS 200-250 2 UNITS BS 251-300 4 UNITS BS 301-350 6 UNITS BS 351-400 8 UNITS glipizide 10 mg tablet extended release 24hr 10 mg PO BID insulin glargine [Lantus Solostar U-100 Insulin] 100 unit/mL (3 mL) insulin pen 35 unit subcut BEDTIME metformin 500 mg tablet extended release 24 hr 500 mg PO BID amlodipine 10 mg tablet 10 mg PO DAILY atorvastatin 20 mg tablet 20 mg PO DAILY furosemide 40 mg tablet 40 mg PO DAILY metoprolol tartrate 50 mg tablet 50 mg PO BID sertraline 25 mg tablet 25 mg PO DAILY (DME) FreeStyle Car 2 Sensor Kit See Rx Instructions .Route Rx Instructions: As directed Referrals: ANGELA PAYAN [Other] Print Language: Bulgarian
[2024-05-22] MEDS: Insulin Lispro 100 UNIT/ML 3 ML VIAL SUBCUT (09:21)
--- NOTE | 2024-05-22 10:30 | PC.NURSE ---
This rn on phone with daughter, asking for outpatient physical therapy referral
[2024-05-22 11:03] LABS: Influenza A PCR NEGATIVE (Negative); Influenza B PCR NEGATIVE (Negative); Resp Syncy Virus RNA Qual PCR NEGATIVE (Negative); SARS COV2 PCR INHOUSE NEGATIVE (Negative)
--- NOTE | 2024-05-22 13:07 | MHC.CM.ED ---
Addendum entered by Elizabeth Mcwilliams 05/22/24 14:50: Attempted to call Belen again. No answer. Violeta TAM booked. Waiting for time. Original Note: Received case management consult from Fabiola MCHUGH. Patient came to the ER due to a fall. Work up essentially negative. Physical therapy eval completed. Home with services is recommended. Met with patient in regards to discharge planning. Patient lives alone and has a home health aide 3 times a week. Patient was active with Tia PAYAN in the past. Referral made to Tia PAYAN at patient's request. PCP verified. Copy of HCP verified to be on file. Patient is under the impression that his daughter, Belen, would be transporting patient home. T/W was informed by Sheila WALTON that Belen's father in law and Belen is in the process of arranging his . Attempted to speak with Belen, via telephone at [phone]. Left a message requesting return telephone call. Continue to monitor for d/c needs.
[2024-05-22 14:25] LABS: Appearance Urine Clear; Color Urine Yellow; Glucose Urine UA >=1000 mg/dL (Negative); Leukocyte Esterase Urine Negative (Negative); Nitrite Urine Negative (Negative); PH 7.5 (5.0-9.0); Specific Gravity - Urine 1.015 (1.005-1.025); UMIC TRIGGER UACC YES; Urine Blood Negative (Negative); Urine Ketones Negative (Negative); Urine Protein 100 (2+) mg/dL (Neg-Trace)
[2024-05-22 14:28] LABS: Bacteria Urine None Seen (None Seen); Hyaline Casts Urine 0-2 /LPF (0-2); RBC Urine 0-2 /HPF (0-2); Squamous Epithelial Cell Urine 0-2 /HPF (0-2); WBC Urine 0-5 /HPF (0-5)
--- NOTE | 2024-05-22 16:09 | PC.NURSE ---
patient awaiting transport home, ambulence expected at 6pm
[2024-05-22 17:09] LABS: Glucose, Whole Blood 263 mg/dL (60-115)
--- NOTE | 2024-05-22 17:09 | PC.NURSE ---
Daughter called pt and requested to talk with an RN, daughter concerned he is confused which can happen when his POC is low, POC checked and is 264, awaiting EMS to bring home at this time
== END 2024-05-22 19:10 | disposition home or self-care (01) ==
PROVIDERS: Nurse Practitioner Family; Emergency Provider Emergency Medicine; PCP Internal Medicine
DX: S89.91XA Unspecified injury of right lower leg, initial encounter (principal); M25.561 Pain in right knee; M17.0 Bilateral primary osteoarthritis of knee; R26.2 Difficulty in walking, not elsewhere classified; R51.9 Headache, unspecified; E11.9 Type 2 diabetes mellitus without complications; W06.XXXA Fall from bed, initial encounter; Y93.9 Activity, unspecified; Y92.003 Bedroom of unspecified non-institutional (private) residence as the place of occurrence of the external cause; Y99.8 Other external cause status; Z03.818 Encounter for observation for suspected exposure to other biological agents ruled out; Z79.899 Other long term (current) drug therapy; Z79.4 Long term (current) use of insulin
CPT/HCPCS: 0241U; 36415; 73560; 80053; 81001; 82947; 85025; 93005; 97162; 99284; 99285

== ENCOUNTER → 2024-05-22 05:49 | Outpatient (BNV) | payer MEDICARE, SELFPAY | PROVIDERS: Emergency Provider Emergency Medicine; PCP Internal Medicine; Visit Provider Internal Medicine Cardiovascular Disease | DX: M11.261 Other chondrocalcinosis, right knee (principal); W06.XXXA Fall from bed, initial encounter | CPT/HCPCS: 93010 ==

== ENCOUNTER → 2024-05-22 06:35 | Outpatient (BNV) | payer MEDICARE, SELFPAY | PROVIDERS: Emergency Provider Emergency Medicine; PCP Internal Medicine; Visit Provider Radiology Diagnostic Radiology | DX: M11.261 Other chondrocalcinosis, right knee (principal); M17.11 Unilateral primary osteoarthritis, right knee | CPT/HCPCS: 73560 ==

== ENCOUNTER 2024-08-20 11:53 | Emergency (ER) | payer MEDICARE, SELFPAY ==
--- NOTE | ~2024-08-20 | US_ITS ---
EXAMINATION: COLOR-FLOW DUPLEX IMAGING OF THE BILATERAL LOWER EXTREMITY ARTERIAL SYSTEM. CLINICAL INFORMATION: Skin discoloration and pain. Diabetes. FINDINGS: Atheromatous Plaque: Moderate calcific atheromatous plaque present bilaterally. RIGHT FEMORAL RUNOFF VELOCITIES: The right common femoral artery measures 122 cm/s and biphasic. The right profunda femoral artery is 89 cm/s and is biphasic. The right proximal superficial femoral artery measures 116 cm/s and triphasic. The right mid superficial femoral artery is 69 cm/s and biphasic. The right distal right superficial femoral artery measures 67 cm/s and is biphasic. The right popliteal velocity measures 50 cm/s and is monophasic. The right posterior tibial artery velocity measures 50 cm/s and is monophasic. The mid aspect may be occluded. The right peroneal artery proximally is not seen, possibly occluded. The right anterior tibial artery demonstrates reversed flow with monophasic waveforms. The right dorsalis pedis artery appears patent, velocity measures 21 cm/s with monophasic waveforms. LEFT FEMORAL RUNOFF VELOCITIES: The left common femoral artery measures 128 cm/s and biphasic. The left profunda femoral artery is 103 cm/s and is monophasic. The left proximal superficial femoral artery measures 120 cm/s and biphasic. The left mid superficial femoral artery is 74 cm/s and biphasic. The left distal right superficial femoral artery measures 117 cm/s and is biphasic. The left popliteal velocity measures 120 cm/s and is biphasic. The left posterior tibial artery velocity measures 119 cm/s and is biphasic. The left peroneal artery is not well seen, possibly occluded. The left anterior tibial artery appears occluded. The left dorsalis pedis artery is partially occluded and reversed in flow, with monophasic waveforms. US/US arterial duplex LE BI IMPRESSION: 1. Scattered atheromatous disease is present bilaterally. 2. Evidence of moderate to severe peripheral artery disease, namely at the tibial levels and inferior left greater than right. 3. There may be an inflow stenosis as well, as there are biphasic waveforms in the common femoral arteries. 4. See above for details. Electronically signed by: Zac Clement MD 08/20/2024 02:02 PM EDT
--- NOTE | ~2024-08-20 | XR_ITS ---
EXAMINATION: XR TIBIA AND FIBULA, RIGHT CLINICAL INFORMATION: concern for osteo COMPARISON: None available. TECHNIQUE: AP and lateral views of the right tibia and fibula were obtained. FINDINGS: The bones and soft tissues are normal. No fracture. No focal osteopenia, region of permeative bony change, or periostitis evident. No osseous lesions. No soft tissue emphysema. Vascular calcifications present. XR/XR tibia fibula RT 2V IMPRESSION: No acute findings of the right tibia and fibula. Electronically signed by: Zac Clement MD 08/20/2024 04:16 PM EDT
[2024-08-20 12:22] VITALS: BP 172/76; PULSE 54; RESP 16; TEMP 37.1; O2SAT 96; BMI 27.1
--- NOTE | 2024-08-20 12:23 | ED_ITS ---
HPI - General Adult General Chief complaint: Extremity Problem Stated complaint: Discoloration L foot Time Seen by Provider: 08/20/24 15:42 Source: patient and family (patient's daughter) Mode of arrival: wheelchair Limitations: no limitations History of Present Illness ED Provider: Sarah Underwood PA-C HPI narrative: Patient is a 79 year old assigned male at with a history of gout, DM, cardiomegaly, and atrial fib not on anti-coag therapy, presenting to the emergency department today with bilateral lower leg weakness. Patient states that he was seen by his systems eng who was concerned that both of the pedal pulses are weak / low. Patient states that he has been having episodes of falling because his legs give out, regularly. Patient denies any dizziness, lightheadedness, abdominal pain, nausea, vomiting, fever, chills, blurry vision, double vision, loss of vision, chest pain, difficulty breathing, shortness of breath, back pain, night sweats, pain with urination, increased urinary frequency, increased urinary urgency, blood in his urine or stool, syncope or a near syncopal episode, bowel incontinence, bladder incontinence, or any other complaints at this time. Relieving factors: none Exacerbating factors: none Related Data Home Medications ?Medication ?Instructions ?Recorded ?Confirmed amlodipine 10 mg tablet 10 mg PO DAILY 11/22/21 10/26/22 atorvastatin 20 mg tablet 20 mg PO DAILY 11/22/21 10/26/22 furosemide 40 mg tablet 40 mg PO DAILY 11/22/21 10/26/22 metoprolol tartrate 50 mg tablet 50 mg PO BID 11/22/21 10/26/22 dapagliflozin propanediol 5 mg 5 mg PO DAILY 07/19/22 10/26/22 tablet (Farxiga) Lactobacillus rhamnosus GG 10 1 cap PO DAILY 08/24/22 10/26/22 billion cell capsule (Culturelle) acetaminophen 325 mg tablet 650 mg PO Q6H PRN Fever Or Pain 08/24/22 10/26/22 bupropion HCl 100 mg tablet 100 mg PO BID 08/24/22 10/26/22 glipizide 10 mg tablet, extended 10 mg PO BID 08/24/22 10/26/22 release 24 hr insulin glargine 100 unit/mL (3 35 unit subcut BEDTIME 08/24/22 10/26/22 mL) subcutaneous pen (Lantus Solostar U-100 Insulin) insulin lispro 100 unit/mL 0 sliding scale dose subcut BID 08/24/22 10/26/22 subcutaneous cartridge (Humalog U-100 Insulin) loperamide 2 mg tablet 2 mg PO Q4H PRN Loose Stool 08/24/22 10/26/22 sennosides 8.6 mg tablet (senna) 8.6 mg PO DAILY PRN Constipation 08/24/22 10/26/22 flash glucose sensor (FreeStyle 10/23/23 Car 2 Sensor kit) sertraline 25 mg tablet 25 mg PO DAILY 10/23/23 etanercept 50 mg/mL (1 mL) 50 mg subcut QWEEK 08/20/24 subcutaneous pen injector (Enbrel SureClick) lisinopril 30 mg tablet 30 mg PO DAILY 08/20/24 metformin 500 mg tablet,extended 1,000 mg PO BID 08/20/24 release 24 hr Previous Rx's ?Medication ?Instructions ?Recorded apixaban 5 mg tablet (Eliquis) 5 mg PO BID #60 tabs 08/06/22 allopurinol 100 mg tablet 200 mg (2 x 100 mg) PO DAILY #180 07/08/24 tabs cephalexin 500 mg capsule 500 mg PO Q6H 7 days #28 caps 08/21/24 doxycycline hyclate 100 mg tablet 100 mg PO BID 7 days #14 tabs 08/21/24 Allergies Allergy/AdvReac Type Severity Reaction Status Date / Time famotidine [From Pepcid] Allergy Intermediate Hallucinati Verified 08/20/24 12:23 ons Review of Systems 2 Constitutional: Constitutional: Reports no additional constitutional complaints, Denies chills, Denies fever(s) and Denies night sweats Eyes: Eyes: Reports no additional eye complaints, Denies blurry vision, Denies change in vision, Denies diplopia, Denies eye discharge, Denies loss of vision and Denies eye pain ENT: Denies dizziness Cardiovascular: Cardiovascular: Reports no additional cardiovascular complaints, Denies chest pain, Denies lightheadedness, Denies Loss of Consciousness and Denies dyspnea Respiratory: Respiratory: Reports no additional respiratory complaints and Denies dyspnea Gastrointestinal: Gastrointestinal: Reports no additional gastrointestinal complaints, Denies abdominal pain, Denies melena, Denies hematochezia, Denies change in bowel habits and Denies change in stool character Genitourinary: Genitourinary: Reports no additional male genitourinary complaints, Denies hematuria, Denies oliguria, Denies difficulty urinating, Denies dysuria, Denies urinary frequency, Denies urinary hesitancy, Denies urinary incontinence and Denies urinary urgency Musculoskeletal: Musculoskeletal: Reports no additional musculoskeletal complaints, Denies numbness and Denies tingling Comments: bilateral lower leg weakness Neurologic: Denies dizziness, Denies loss of vision, Denies numbness and Denies tingling Psychiatric: Psychiatric: Reports no additional psychiatric complaints Endocrine: Endocrine: Reports no additional endocrine complaints Hematologic/Lymphatic: Hematologic/Lymphatic: Reports no additional hematologic/lymphatic complaints Allergic/Immunologic: Allergic/Immunologic: Reports no additional allergic/immunologic complaints PMFSH Past Medical History Attestation statement: The following information was validated with the patient. (all information was validated with the patient's daughter) Source: old records reviewed, obtained from family (patient's daughter provided additional history and confirmed the history provided by the patient.) and nursing notes reviewed Medical History Chronic kidney disease, stage 3 unspecified Gout Leukocytosis Paroxysmal atrial flutter Gallstones Abnormal LFTs Paroxysmal atrial fibrillation Cardiomegaly Protein malnutrition Immunosuppression due to drug therapy New onset a-fib 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, senior living, current use Back pain Screening-pulmonary TB Encounter for screening for other viral diseases ADHD Hypertension Psoriatic arthritis Obstructive sleep apnea Normal pressure hydrocephalus Restless leg syndrome Diabetic retinopathy Psoriasis Diabetes Surgical History H/O umbilical hernia repair History of cholecystectomy (07/26/22) Family History Family History Father Myocardial infarct Diabetes Mother Arthritis Social History Social History Household Members: None Household Members Other:: lives alone Housing: House Do you presently have visiting nurse or other home services: No Alcohol intake: never Patient Tobacco Use Status: Never used Tobacco Smoked in Last 30 Days: No e-Cigarette/Vaping Use: Never Used Use of substances other than those prescribed or required for medical reasons: No Advance Directives: Yes Advance Directives on File: Yes Advance Directives Date on File: 08/07/22 Do you have a plan to hurt others: No Plan service: No 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 occupational status: 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 Physical Exam ED Vital Signs: Vital Signs - 24 hr 08/20/24 16:29 08/20/24 20:01 08/21/24 06:22 Temperature 98.0 F 98.3 F 97.8 F Pulse Rate 58 69 69 Respiratory Rate 14 16 16 Blood Pressure 160/65 H 193/92 H 167/81 H Pulse Oximetry 91 L 97 96 Oxygen Delivery Method Room Air Room Air Room Air 08/21/24 08:18 08/21/24 09:52 08/21/24 14:00 Temperature 97.9 F 98.3 F Pulse Rate 69 72 74 Respiratory Rate 18 Blood Pressure 167/81 H 191/88 H 169/77 H Pulse Oximetry 96 95 95 Oxygen Delivery Method Room Air Room Air BMI result Body Mass Index 27.1 Const General: cooperative, no acute distress, alert and awake Nutritional Appearance: well nourished Orientation/consciousness: patient oriented x3 HENMT Head: Yes normal to inspection and Yes atraumatic Ears: hearing grossly normal bilaterally and external ears normal General nose exam: Normal external nose present, no nasal discharge noted and no epistaxis Face and sinus: Yes normal facial exam, No abrasion and No laceration Mouth: Normal oral and palatal mucosa present, no drooling and no muffled voice Eyes General: appearance normal, both eyes and all related structures Periorbital: periorbital findings normal Eyelids: Yes eyelids normal Conjunctivae: conjunctivae normal Pupils: Equal, round and reactive pupils present EOM: EOMs intact bilaterally Neck Neck: Yes normal visual inspection, Yes full ROM and Yes no lymphadenopathy Resp Effort & Inspection: normal respiratory effort and able to speak in complete sentences Neuro General: patient oriented x3, moves all extremities and CN's II-XI intact bilaterally Cranial nerves: Yes Equal, round and reactive pupils present Cognition (Neuro): normal cognition Extrem Other: General: Yes full ROM and Yes capillary refill normal Psych Appearance: grossly normal Mental Status: mental status grossly normal Affect: normal affect Attitude: cooperative Thought process: Normal thought process present Thought content: Normal thought content present Insight: Good insight present (Psych) Course Course Course Narrative: This is an RME: Additional HPI, ROS, PE not included below will be deferred to primary provider. RME assessment and note performed by: Chapis Bruno PA-C 79 yo male with PMHx of CKD, AFib, HTN, T2DM, presents to ED due to skin discoloration of B/L feet sent to the ED for evaluation from systems eng [employer]. Increased falls, uses walker at baseline and has been having difficulty ambulating. Denies LOC or headstrike. PE: faint DP pulses, sensation intact, no calf tenderness. Plan: Labs, UA, B/L US 08/21/2024 0801 Sarah Underwood PA-C: Observation continues. Case management continues to follow. 08/21/2024 1428 Sarah Underwood PA-C: Observation care revealed the the patient does not meet medical necessity for hospitalization. [facility] the [facility] and the patient's daughter who verbalized understanding and agreement. Patient completed observation care at 1428, total time spent in observation care was 22 hours. Medications Administered Generic Name Dose Route Start Last Admin Trade Name Freq PRN Reason Stop Dose Admin Cephalexin HCl 500 mg 08/20/24 17:00 08/21/24 09:16 Cephalexin 500 Mg Capsule PO 08/27/24 16:59 500 mg QID BENIGNO Administration Doxycycline Monohydrate 100 mg 08/20/24 21:00 08/21/24 09:16 Doxycycline Monohydrate 100 Mg Capsule PO 100 mg BID BENIGNO Administration Medical Decision Making Medical Decision Making MDM Narrative: Patient is a 79 year old assigned male at with a history of gout, DM, cardiomegaly, and atrial fib not on anti-coag therapy, presenting to the emergency department today with bilateral lower leg weakness. Patient's physical exam was as noted in the physical exam. Patient's bilateral pedal pulses were present. Patient's blood work was unremarkable. Patient's right tib fib x-ray showed no acute process. Patient's bilateral lower extremity arterial US showed evidence of moderate to severe peripheral artery disease - namely at the tibial levels and inferior left greater than right. I spoke with Dr. Mendoza, the vascular surgeon medical receptionist, who stated these were chronic findings that do not require emergent intervention and he recommended following up on an outpatient basis. Patient's clinical presentation is most consistent with PAD and right lower leg cellulitis. I explained my physical exam findings as well as all test results to the patient and the patient's daughter. I answered all questions asked by the patient and the patient's daughter. The patient's daughter expressed concern that the patient has been having more frequent falls at home and she would like him to be evaluated by the physical therapy and case management teams. Patient started on Doxy and Keflex for right lower leg cellulitis. Case management and physical therapy orders in. Patient and the patient's daughter verbalized agreement and understanding with this treatment plan and remaining in the department pending physical therapy and case management evaluations. Differential Diagnosis Differential Diagnoses: The differential diagnosis associated with the presentation includes Right lower leg cellulitis PAD Admission/Observation Consideration of admission/observation: Escalation of care including admission/observation considered Patient would have been admitted to the hospital had his work up had any findings where hospital admission was appropriate and his clinical presentation warranted hospital admission. Consult Healthcare Provider Management of the patient was discussed with: Glove Tagger (spoke with Dr. Mendoza, the vascular surgeon medical receptionist, as noted in the MDM Rationale portion of this note. ) Lab Data [facility] Lab Attestation statement: I reviewed the patient's lab results. My interpretation of these results are in the MDM Rationale portion of this note. 08/20/24 14:17 08/20/24 14:17 Labs: Lab Results 08/20/24 08/20/24 08/21/24 Range/Units 14:17 17:28 09:33 WBC 6.5 (4.8-10.8) X10*3/uL RBC 5.33 (4.60-5.80) X10*6/uL Hgb 12.9 L (14.0-18.0) g/dl Hct 41.9 L (42.0-52.0) % MCV 78.6 L (80.0-98.0) fL MCH 24.2 L (27.0-33.0) pg MCHC 30.8 L (31.0-36.0) g/dl RDW 18.7 H (11.0-16.0) % Plt Count 228 (160-400) X10*3/uL MPV 9.8 (9.4-12.4) fL Immature Gran % (Auto) 0.3 (0.0-0.4) % Neut % (Auto) 65.9 (45-73) % Lymph % (Auto) 21.7 (20-40) % [place] % (Auto) 10.2 (2-11) % Eos % (Auto) 1.4 (0-4) % Baso % (Auto) 0.5 (0-2) % Lymph # (Auto) 1.4 (1.2-4.9) X10*3/uL [place] # (Auto) 0.7 (0.1-1.2) X10*3/uL Eos # (Auto) 0.1 (0.0-0.4) X10*3/uL Baso # (Auto) 0.0 (0.0-0.2) X10*3/uL Abs Immat Gran (auto) 0.02 (0.00-0.03) X10*3/uL Absolute Neuts (auto) 4.3 (2.0-8.3) x10*3/uL Absolute Nucleated RBC 0.000 (0.0-0.012) X10*3/uL Nucleated RBC % (auto) 0.0 (0.0-0.2) /100WBC Sodium 139 (135-145) mmol/L Potassium 5.0 (3.3-5.1) mmol/L Chloride 106 (96-108) mmol/L Carbon Dioxide 26 (22-29) mmol/L Anion Gap 12 (12-20) BUN 21 H (9-16) mg/dL Creatinine 1.06 (0.5-1.4) mg/dL Estim Creat Clear Calc 53.6 Estimated GFR > 60 Random Glucose 149 H (60-115) mg/dL Calcium 9.5 D (8.4-10.2) mg/dL Total Bilirubin 0.4 (0.0-1.0) mg/dL AST 17 (5-37) U/L ALT 14 (0-40) U/L Alkaline Phosphatase 108 (39-117) U/L B-Natriuretic Peptide 144 H (<100) pg/mL Total Protein 7.9 (6.5-8.0) g/dL Albumin 4.1 (3.5-5.0) g/dL Urine Color Yellow Urine Appearance Clear Urine pH 6.5 (5.0-9.0) Ur Specific [place] 1.010 (1.005-1.025) Urine Protein 100 (2+) H (Neg-Trace) mg/dL Urine Glucose (UA) Negative (Negative) mg/dL Urine Ketones Negative (Negative) mg/dL Urine Blood Negative (Negative) Urine Nitrite Negative (Negative) Ur Leukocyte Esterase Negative (Negative) Urine RBC 0-2 (0-2) /HPF Urine WBC 0-5 (0-5) /HPF Ur Squamous Epith Cells 0-2 (0-2) /HPF Urine Bacteria None Seen (None Seen) Hyaline Casts 0-2 (0-2) /LPF Influenza Type A (PCR) NEGATIVE (Negative) Influenza Type B (PCR) NEGATIVE (Negative) RSV RNA Qual (PCR) NEGATIVE (Negative) SARS-CoV-2 RNA (RT-PCR) NEGATIVE (Negative) Independent Interpretation I performed an independent interpretation of an: Plain X-Ray and Ultrasound Interpretation: My interpretation is in agreement with the radiologist's impression of these imaging studies. L EXAMINATION: COLOR-FLOW DUPLEX IMAGING OF THE BILATERAL LOWER EXTREMITY ARTERIAL SYSTEM. CLINICAL INFORMATION: Skin discoloration and pain. Diabetes. FINDINGS: Atheromatous Plaque: Moderate calcific atheromatous plaque present bilaterally. RIGHT FEMORAL RUNOFF VELOCITIES: The right common femoral artery measures 122 cm/s and biphasic. The right profunda femoral artery is 89 cm/s and is biphasic. The right proximal superficial femoral artery measures 116 cm/s and triphasic. The right mid superficial femoral artery is 69 cm/s and biphasic. The right distal right superficial femoral artery measures 67 cm/s and is biphasic. The right popliteal velocity measures 50 cm/s and is monophasic. The right posterior tibial artery velocity measures 50 cm/s and is monophasic. The mid aspect may be occluded. The right peroneal artery proximally is not seen, possibly occluded. The right anterior tibial artery demonstrates reversed flow with monophasic waveforms. The right dorsalis pedis artery appears patent, velocity measures 21 cm/s with monophasic waveforms. LEFT FEMORAL RUNOFF VELOCITIES: The left common femoral artery measures 128 cm/s and biphasic. The left profunda femoral artery is 103 cm/s and is monophasic. The left proximal superficial femoral artery measures 120 cm/s and biphasic. The left mid superficial femoral artery is 74 cm/s and biphasic. The left distal right superficial femoral artery measures 117 cm/s and is biphasic. The left popliteal velocity measures 120 cm/s and is biphasic. The left posterior tibial artery velocity measures 119 cm/s and is biphasic. The left peroneal artery is not well seen, possibly occluded. The left anterior tibial artery appears occluded. The left dorsalis pedis artery is partially occluded and reversed in flow, with monophasic waveforms. US/US arterial duplex LE BI IMPRESSION: 1. Scattered atheromatous disease is present bilaterally. 2. Evidence of moderate to severe peripheral artery disease, namely at the tibial levels and inferior left greater than right. 3. There may be an inflow stenosis as well, as there are biphasic waveforms in the common femoral arteries. 4. See above for details. Electronically signed by: Zac Clement MD 08/20/2024 02:02 PM EDT Dictated By: Zac Clement MD Signed By: Electronically signed by Zac Clement MD 08/20/24 1402 EXAMINATION: XR TIBIA AND FIBULA, RIGHT CLINICAL INFORMATION: concern for osteo COMPARISON: None available. TECHNIQUE: AP and lateral views of the right tibia and fibula were obtained. FINDINGS: The bones and soft tissues are normal. No fracture. No focal osteopenia, region of permeative bony change, or periostitis evident. No osseous lesions. No soft tissue emphysema. Vascular calcifications present. XR/XR tibia fibula RT 2V IMPRESSION: No acute findings of the right tibia and fibula. Electronically signed by: Zac Clement MD 08/20/2024 04:16 PM EDT RP Dictated By: Zac Clement MD Signed By: Electronically signed by Zac Clement MD 08/20/24 1616 Radiology Impression Discussion of test interpretation with radiology: I have reviewed the radiologist's reading. Independent Historian Clinical information obtained from an independent historian. History obtained from or confirmed by: Other (patient's daughter provided additional history and confirmed the history provided by the patient. ) Chronic Conditions Patient?s care impacted by: Diabetes Critical Care Time Critical Care Time Critical Care Time: Yes Total Critical Care Time: 36 Attestation: I spent 36 minutes of Critical Care Time with this patient. This does not include time spent on separately reported billable procedures. Discharge Plan Discharge Clinical Impression: Cellulitis, PAD (peripheral artery disease) Patient Disposition: [facility] Transfer Details: [facility] Instructions: Cellulitis (ED), Peripheral Artery Disease (ED) Additional Instructions: Take your antibiotics as directed. Follow up with your primary care provider and the vascular surgeon as directed. Return to the emergency department immediately if your symptoms worsen or if you develop any numbness, tingling, dizziness, shortness of breath, difficulty breathing, chest pain, blurry vision, loss of vision, nausea, vomiting, abdominal pain, fever, chills, back pain, or any other complaints. Please see the information below about our Patient Portal. If you are not yet enrolled in the [facility] Patient Portal, you will receive an enrollment email invitation following your visit to any [facility] setting. You may also self-enroll in the Patient Portal by visiting our website: [email or web address] The following information is required to access the Patient Portal: - Your [facility] Medical Record Number - Your personal home email address (must match what is in your electronic medical record, Registration staff can assist with this) - Name - Date of Capabilities of the Patient Portal: - Message some providers - View upcoming appointments - Access your health summary, medical history, and visit history - View current conditions and allergies - View procedure and lab results - View your medications, including guidelines, side effects, and precautions - Complete pre-appointment questionnaires requested by your provider - Ready summary reports of your office visits and procedures To access the Patient Portal Mobile Candace, follow these directions: - Search [employer] in the Candace Store or Google Play Store - Download the Candace - Search for [facility] - Enter your login/password Prescriptions: New cephalexin 500 mg capsule 500 mg PO Q6H 7 Days Qty: 28 0RF doxycycline hyclate 100 mg tablet 100 mg PO BID 7 Days Qty: 14 0RF No Action allopurinol 100 mg tablet 200 mg PO DAILY Qty: 180 1RF Farxiga 5 mg tablet 5 mg PO DAILY Eliquis 5 mg Tablet 5 mg PO BID Qty: 60 0RF Enbrel SureClick 50 mg/mL (1 mL) pen injector 50 mg subcut QWEEK lisinopril 30 mg tablet 30 mg PO DAILY metformin 500 mg tablet extended release 24 hr 1,000 mg PO BID sennosides [senna] 8.6 mg Tablet 8.6 mg PO DAILY PRN (Reason: Constipation) acetaminophen 325 mg Tablet 650 mg PO Q6H PRN (Reason: Fever Or Pain) loperamide 2 mg Tablet 2 mg PO Q4H PRN (Reason: Loose Stool) Rx Instructions: administer after each loose stool until symptoms controlled; do not exceed 8 mg per 24 hrs bupropion HCl [Wellbutrin] 100 mg Tablet 100 mg PO BID Culturelle 10 billion cell Capsule 1 cap PO DAILY Humalog U-100 Insulin 100 unit/mL Cartridge 0 sliding scale dose subcut BID Rx Instructions: PLEASE CHECK BLOOD SUGAR BEFORE BREAKFAST AND DINNER BS 200-250 2 UNITS BS 251-300 4 UNITS BS 301-350 6 UNITS BS 351-400 8 UNITS glipizide 10 mg tablet extended release 24hr 10 mg PO BID insulin glargine [Lantus Solostar U-100 Insulin] 100 unit/mL (3 mL) insulin pen 35 unit subcut BEDTIME amlodipine 10 mg tablet 10 mg PO DAILY atorvastatin 20 mg tablet 20 mg PO DAILY furosemide 40 mg tablet 40 mg PO DAILY metoprolol tartrate 50 mg tablet 50 mg PO BID sertraline 25 mg tablet 25 mg PO DAILY (DME) FreeStyle Car 2 Sensor Kit See Rx Instructions .Route Rx Instructions: As directed Referrals: [facility] [Provider Group] (Call to establish and follow up with a vascular surgeon to address your peripheral artery disease. ) [facility] [Outside] ([address] [facility] [place] [phone]) Jesenia Bynum MD [Primary Care Provider] - Print Language: Citizen [place]
[2024-08-20 14:21] LABS: MANUAL DIFF FLAG NO
[2024-08-20 14:23] LABS: Basophils Percent Auto 0.5 % (0-2); Eosinophils Absolute Auto 0.1 X10*3/uL (0.0-0.4); Eosinophils Percent Auto 1.4 % (0-4); Hematocrit 41.9 % (42.0-52.0); Hemoglobin 12.9 g/dl (14.0-18.0); Imm Gran Abs Auto 0.02 X10*3/uL (0.00-0.03); Imm Gran Pct Auto 0.3 % (0.0-0.4); Lymphocytes Absolute Auto 1.4 X10*3/uL (1.2-4.9); Lymphocytes Percent Auto 21.7 % (20-40); Mean Corpuscular HGB Conc 30.8 g/dl (31.0-36.0); Mean Corpuscular Hemoglobin 24.2 pg (27.0-33.0); Mean Corpuscular Volume 78.6 fL (80.0-98.0); Mean Platelet Volume 9.8 fL (9.4-12.4); Monocytes Absolute Auto 0.7 X10*3/uL (0.1-1.2); Monocytes Percent Auto 10.2 % (2-11); Neutrophils Absolute Auto 4.3 x10*3/uL (2.0-8.3); Neutrophils Percent Auto 65.9 % (45-73); Platelet Count 228 X10*3/uL (160-400); Red Blood Count 5.33 X10*6/uL (4.60-5.80); Red Cell Distribution Width 18.7 % (11.0-16.0); White Blood Count 6.5 X10*3/uL (4.8-10.8)
[2024-08-20 14:40] LABS: Alanine Aminotransferase 14 U/L (0-40); Albumin Level 4.1 g/dL (3.5-5.0); Alkaline Phosphatase 108 U/L (39-117); Anion Gap 12 (12-20); Aspartate Amino Transferase 17 U/L (5-37); Bilirubin Total 0.4 mg/dL (0.0-1.0); Blood Urea Nitrogen 21 mg/dL (9-16); Calcium 9.5 mg/dL (8.4-10.2); Carbon Dioxide 26 mmol/L (22-29); Chloride 106 mmol/L (96-108); Creatinine Clr Calc Pharmacy 53.6; Estimated Glomerular Filt Rate > 60; Glucose Random 149 mg/dL (60-115); Sodium 139 mmol/L (135-145); Total Protein 7.9 g/dL (6.5-8.0)
[2024-08-20 14:44] LABS: B Type Natriuretic Peptide 144 pg/mL (<100)
--- OUTSIDE RECORDS SUMMARY | 2024-08-20 15:43 | XMS_ITS ---
Author Organization [facility] on Care Team Providers Care Motorcycle Technician Name Role Phone Paradise Gonzalez Unavailable Unavailable Allergies and adverse reactions Code CodeSystem Substance Reaction Severity StartDate Concern Status 4278 RXNORM Famotidine Unknown 05/18/2022 active Care Team Name Role Address Phone Organization Dates Paradise Gonzalez PCP [address] [place] [address], [place], [address], [place] (Office): : [facility] 08/06/2022 - 08/24/2022 Immunizations Immunization Status Vaccine Details Vaccine Code CodeSystem Date Notes Influenza completed Influenza, split virus, trivalent, injectable, contains preservative 141 CVX created date: 3 administe red date: 2 verified by [facility] Pneumococcal Conjugate Vaccine (PCV13) completed pneumococcal conjugate vaccine, 13 valent 133 CVX created date: 3 administe red date: 5 verified by [facility] Pneumococcal Polysaccharide Vaccine (PPSV23) completed pneumococcal polysaccharide vaccine, 23 valent 33 CVX created date: 3 administe red date: 7 verified by [facility] Pneumococcal Polysaccharide Vaccine (PPSV23) completed pneumococcal polysaccharide vaccine, 23 valent 33 CVX created date: 3 administe red date: 8 verified by [facility] Pneumococcal Polysaccharide Vaccine (PPSV23) completed pneumococcal polysaccharide vaccine, 23 valent 33 CVX created date: 3 administe red date: 1 verified by [facility] TDAP( Tetanus/Diptheria /Perutssis) completed tetanus and diphtheria toxoids, adsorbed, preservative free, for adult use (2 Lf of tetanus toxoid and 2 Lf of diphtheria toxoid) 09 CVX created date: 3 administe red date: 9 TdVerified by [facility] SARS-COV-2 (COVID-19) completed SARS-COV-2 (COVID-19) vaccine, mRNA, spike protein, LNP, preservative free, 30 mcg/0.3mL dose Mfg: pfizer Step 2 of Multi-step with next step required 208 CVX created date: 3 administe red date: 1 verified by [facility] SARS-COV-2 (COVID-19) completed SARS-COV-2 (COVID-19) vaccine, mRNA, spike protein, LNP, preservative free, 30 mcg/0.3mL dose Mfg: pfizer Step 1 of Multi-step with next step required 208 CVX created date: 3 administe red date: 1 verified by [facility] SARS-COV-2 (COVID-19 BOOSTER) completed SARS-COV-2 (COVID-19) vaccine, mRNA, spike protein, LNP, bivalent, preservative free, 50 mcg/0.5 mL or 25 mcg/0.25 mL dose Mfg: Moderna Bilvalent booster 229 CVX created date: 3 administe red date: 2 verified by [facility] SARS-COV-2 (COVID-19 BOOSTER) completed SARS-COV-2 (COVID-19) vaccine, mRNA, spike protein, LNP, preservative free, 30 mcg/0.3mL dose Mfg: pfizer booster 208 CVX created date: 3 administe red date: 1 verified by [facility] Mental Status Section Date Assessment Total Score Description 08/24/2022 BIMS 07 severe cognitiv e impairment CAM 0 No delirium ind icated PHQ-9 12 moderate depres zuri 08/12/2022 BIMS 09 moderate cognit jose alberto impairment CAM 0 No delirium ind icated PHQ-9 17 moderately christo re depression Problems Problem # Description Date of onset Resolved Date Code CodeSystem Concern Status 1 (IDIOPATHIC) NORMAL PRESSURE HYDROCEPHALUS [address] active 2 CHOLECYSTITIS, UNSPECIFIED [address] active 3 ENCOUNTER FOR SURGICAL AFTERCARE FOLLOWING SURGERY ON THE DIGESTIVE SYSTEM [address] active 4 IDIOPATHIC GOUT, LEFT HAND [address] active 5 IMMUNODEFICIENCY DUE TO DRUGS [address] active 6 PSORIATIC ARTHRITIS MUTILANS [id number] active 7 RESTLESS LEGS SYNDROME [address] active 8 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 [address] active 9 UNSPECIFIED ATRIAL FIBRILLATION [address] active 10 (IDIOPATHIC) NORMAL PRESSURE HYDROCEPHALUS 023 08/06/[address] completed 11 ARTHROPATHIC PSORIASIS, UNSPECIFIED 023 08/06/[address] completed 12 ATTENTION-DEFICIT HYPERACTIVITY DISORDER, UNSPECIFIED TYPE 023 08/06/[address] completed 13 CHOLECYSTITIS, UNSPECIFIED 023 08/06/[address] completed 14 CHRONIC KIDNEY DISEASE, STAGE 3 UNSPECIFIED 023 08/06/[address] completed 15 OBSTRUCTIVE SLEEP APNEA (ADULT) (PEDIATRIC) 023 08/06/[address] completed 16 RESPIRATORY FAILURE, UNSPECIFIED WITH HYPOXIA 023 08/06/[id number] completed 17 RESTLESS LEGS SYNDROME 023 08/06/[address] completed 18 SEPSIS DUE TO ESCHERICHIA COLI [E. COLI] 023 08/06/[address] completed 19 TYPE 2 DIABETES MELLITUS WITHOUT COMPLICATIONS 023 08/06/[address] completed 20 UNSPECIFIED PROTEIN-CALORIE MALNUTRITION 023 08/06/[address] completed Reason for Referral No Reasons for Referral Entered Social History Social History Observation Description Start Date End Date Code Code System Current Smoking Status Tobacco smoking consumption unknown 826300714 SNOMED CT Sex Assigned At Male 1945 27229-3 [facility] Gender Identity Vital Signs Code Code System Vitals Name Values and Units Timing Information 9279-1 [facility] Respiratory Rate Value=16.0 Units=/m in 08/24/2022 8462-4 [facility] Blood Pressure-Diastolic Value=76 Un its=mmHg 08/24/2022 8480-6 [facility] Blood Pressure-Systolic Mrgej=305 Un its=mmHg 08/24/2022 8310-5 [facility] Body Temperature Value=97.5 Units=?? F 08/24/2022 8867-4 [facility] Heart rate Value=67.0 Units=/min 04/2022 98540-6 [facility] O2 % BldC Oximetry Value=97.0 Units= % 08/24/2022 2339-0 [facility] Blood Sugar Value=89.0 Units=mg/dL 08/24/2022 37440-0 [facility] Pain Level Value=0.0 08/24/2022 10855-7 [facility] Weight Rfsoe=003.8 Units=Lbs 8302-2 [facility] Height Value=67.0 Units=Inches 08/06/2022
[2024-08-20 16:29] VITALS: BP 160/65; PULSE 58; RESP 14; TEMP 36.7; O2SAT 91
[2024-08-20] MEDS: cephALEXin 500 MG CAPSULE PO ×2 (16:46→20:26)
[2024-08-20 17:43] LABS: Appearance Urine Clear; Color Urine Yellow; Glucose Urine UA Negative (Negative); Leukocyte Esterase Urine Negative (Negative); Nitrite Urine Negative (Negative); PH 6.5 (5.0-9.0); UMIC TRIGGER UACC YES; Urine Blood Negative (Negative); Urine Ketones Negative (Negative); Urine Protein 100 (2+) mg/dL (Neg-Trace)
[2024-08-20 17:51] LABS: Bacteria Urine None Seen (None Seen); Hyaline Casts Urine 0-2 /LPF (0-2); RBC Urine 0-2 /HPF (0-2); Squamous Epithelial Cell Urine 0-2 /HPF (0-2); WBC Urine 0-5 /HPF (0-5)
--- NOTE | 2024-08-20 19:08 | PC.NURSE ---
Report given to ANTON Bradshaw.
[2024-08-20 20:01] VITALS: BP 193/92; PULSE 69; RESP 16; TEMP 36.8; O2SAT 97
[2024-08-20] MEDS: Doxycycline Monohydrate 100 MG CAPSULE PO (20:26)
--- NOTE | 2024-08-20 21:31 | PHA.MEDREC ---
Pharmacy Consult ? Medication Reconciliation Pharmacy has attempted to complete the medication reconciliation. Spoke with pt and he was a poor historian and said his daughter Belen takes care of his medications and to call her. I called Belen @[phone], her phone was off and I left a voicemail to call us back. Will follow up in the morning if pt still in our facility.
--- NOTE | 2024-08-20 23:05 | PC.NURSE ---
Addendum entered by Cathy Rodriguez 08/20/24 23:07: Pt has male purewick in place. Original Note: Pt resting comfortably on hospital bed. Pt had c/o cramps in his left foot, pt stood with 2 assist at the side of the bed with relief from cramps. Callbell in reach.
[2024-08-21 06:22] VITALS: BP 167/81; PULSE 69; RESP 16; TEMP 36.6; O2SAT 96
[2024-08-21 08:18] VITALS: BP 167/81; PULSE 69; O2SAT 96
[2024-08-21] MEDS: cephALEXin 500 MG CAPSULE PO ×2 (09:16→14:47)
[2024-08-21] MEDS: Doxycycline Monohydrate 100 MG CAPSULE PO (09:16)
--- NOTE | 2024-08-21 09:32 | MHC.CM.ED ---
Addendum entered by Elizabeth Mcwilliams 08/21/24 12:09: Received telephone call from daughter, Gris. Gris can be reached via telephone at [phone]. Gris aware patient will go to [facility] when ins auth is obtained. Also aware Enbrel will need to be brought from home. Addendum entered by Elizabeth Mcwilliams 08/21/24 10:20: [facility] and [facility] are able to offer a bed. Other facilities still reviewing. Met with patient. Patient accepts bed at [facility]. [facility] is in the process of obtaining insurance auth. Original Note: Received case management consult overnight. Patient came to the ER due to left foot pain. Work up essentially negative. Physical therapy eval completed. Short term rehab is recommended. Met with patient in regards to discharge planning. Patient lives alone, uses a walker/cane for mobility and had no services prior to coming to the hospital. PCP verified. Copy of HCP verified to be on file. Patient has been to [facility] and [facility]. Patient can not recall which facility he preferred. Patient agreeable to to reach out to his daughter, Belen. Attempted to speak with Belen via telephone at [phone]. Left message requesting return telephone call. STR referral will be broadcasted at this time to all facilities within 15 miles of patient's home that are contracted with [facility] for bed availability. Continue to monitor for d/c needs.
[2024-08-21 09:52] VITALS: BP 191/88; PULSE 72; RESP 18; TEMP 36.6; O2SAT 95
[2024-08-21 10:28] LABS: Influenza A PCR NEGATIVE (Negative); Influenza B PCR NEGATIVE (Negative); Resp Syncy Virus RNA Qual PCR NEGATIVE (Negative); SARS COV2 PCR INHOUSE NEGATIVE (Negative)
--- NOTE | 2024-08-21 13:16 | MHC.EDTECH ---
400 mls of urine removed from male purewick container
[2024-08-21 14:00] VITALS: BP 169/77; PULSE 74; TEMP 36.8; O2SAT 95
--- NOTE | 2024-08-21 14:19 | MHC.CM.ED ---
Insurance auth has been obtained by [facility]. Patient can leave at 4pm. Violeta TAM booked. Med [facility] with chart. Patient, daughter Paradise Landry RN and Sarah MCGRATH aware. Continue to monitor for d/c needs.
--- NOTE | 2024-08-21 16:51 | PC.NURSE ---
verbal nurse to nurse report given to [facility] at [facility] [phone]. report given to EMS. [facility].
[2024-08-21 17:04] VITALS: BP 168/70; PULSE 75; RESP 16; TEMP 36.9; O2SAT 96
== END 2024-08-21 17:06 | disposition skilled nursing facility (03) ==
PROVIDERS: Physician Assistant Medical; Emergency Provider Emergency Medicine Emergency Medical Services; PCP Internal Medicine
DX: I73.9 Peripheral vascular disease, unspecified (principal); L03.116 Cellulitis of left lower limb; L03.115 Cellulitis of right lower limb; R26.81 Unsteadiness on feet; M79.604 Pain in right leg; R06.02 Shortness of breath; R10.2 Pelvic and perineal pain; Z03.818 Encounter for observation for suspected exposure to other biological agents ruled out; Z79.899 Other long term (current) drug therapy
CPT/HCPCS: 0241U; 36415; 73590; 80053; 81001; 83880; 85025; 93925; 97162; 99284; 99285

== ENCOUNTER → 2024-08-20 12:29 | Outpatient (BNV) | payer MEDICARE, SELFPAY | PROVIDERS: PCP Internal Medicine; Visit Provider Radiology Diagnostic Radiology | DX: I70.203 Unspecified atherosclerosis of native arteries of extremities, bilateral legs (principal); I73.9 Peripheral vascular disease, unspecified | CPT/HCPCS: 73590; 93925 ==

== ENCOUNTER 2024-08-29 17:38 | Inpatient (IN) | payer MEDICARE, SELFPAY ==
--- NOTE | ~2024-08-29 | CT_ITS ---
CLINICAL HISTORY: fall unknown head strke thinners CT head without contrast Comparison: None Findings: No acute intracranial fluid collection or hematoma identified. Right frontal ventricular shunt with nonspecific ventricular dilation. No prior studies are available for comparison. Moderate chronic ischemic white matter disease with volume loss. No acute process in sinuses or mastoids. No acute bony abnormality. Impression: No acute intracranial process This document has been electronically signed by: Tom Appiah MD on 08/29/2024 20:03:04
--- NOTE | ~2024-08-29 | CT_ITS ---
CLINICAL HISTORY: fall uknown head strke CT cervical spine without contrast Comparison: None Findings: No acute fracture or dislocation. Posterior alignment is normal. Moderate to severe degenerative change. DIRECTOR OF MEDICAL REVIEW shunt tubing in right neck. Impression: No acute processes This document has been electronically signed by: Tom Appiah MD on 08/29/2024 20:11:34
--- NOTE | ~2024-08-29 | XR_ITS ---
CLINICAL HISTORY: acute on chronic knee pain s p fall 4 view right knee Comparison: CR/SR - XR KNEE RT 2V - 05/22/24 06:46 EST Findings: No acute fracture. No joint effusion. Tricompartment osteophyte formation with joint space loss diffusely greatest in the medial and patellofemoral compartments. Chondrocalcinosis. No aggressive osseous lesions. Vascular calcium. IMPRESSION: 1. Moderate tricompartment osteoarthropathy similar to the prior exam. No acute fracture. No joint effusion. This document has been electronically signed by: Cristal Ritter MD on 08/29/2024 21:21:56
--- NOTE | ~2024-08-29 | XR_ITS ---
CLINICAL HISTORY: syncope 1 view chest x-ray Comparison: None Findings: The lungs are clear. Heart size is normal. No acute fracture. Partially visualized shunt tubing coursing over the right thorax appears in continuity. IMPRESSION: 1. No acute findings. This document has been electronically signed by: Cristal Ritter MD on 08/29/2024 21:17:45
[2024-08-29 17:50] VITALS: BP 118/68; BP 135/57; PULSE 60; RESP 16; TEMP 36.8; O2SAT 93; O2SAT 96; BMI 27.4
--- NOTE | 2024-08-29 18:03 | ED.FALL ---
HPI - Fall General Chief Complaint: Fall Stated Complaint: MULTIPLE FALLS, +THINN, COLLAR PER EMS Time Seen by Provider: 08/29/24 18:02 Source: patient and EMS Mode of arrival: EMS Limitations: no limitations History of Present Illness ED Provider: JESIKA JOSHUA PA-C HPI Narrative: 79 year old male with pmhx significant for cardiomegaly, T2DM, gout, JASE, PVD, restless legs syndrome, HTN, ADHD, stage III CKD, atrial flutter, atrial fibrillation, on Eliquis presents to the ED today for evaluation s/p unwitnessed fall today. I called [facility] and spoke with patient's nurse Geronimo. She states that she walked into patient's room today to check his blood sugar and found patient down on the floor in between his bed and his wheelchair. He was awake and alert. Unknown down time. She believes he was attempting to self transfer to his bed and fell. POC glucose at that time was 225. As the fall was unwitnessed and in his unclear if he struck his head on AC, provider at facility advised he come to the ED for further evaluation. Cervical collar in place. Geronimo also reports patient had a second unwitnessed fall yesterday where he was found down beside his wheelchair, suspected self transferring injury. Unknown head strike or LOC at that time. She states that patient presented to rehab facility due to unsteady gait and lower extremity weakness. He has been using a wheelchair to ambulate while at facility. No behavioral changes per facility. On arrival, patient does not recall falling or any details surrounding the fall. Unaware of any preceding symptoms. His only complaint at present is discomfort surrounding cervical collar. He also endorses chronic right knee pain. States his right knee has been acting up over the last few weeks. Cannot recall any injury/ trauma. Denies headache, vision changes, neck pain, chest pain, shortness of breath, palpitations, abdominal pain, nausea or vomiting. Related Data Home Medications ?Medication ?Instructions ?Recorded ?Confirmed amlodipine 10 mg tablet 10 mg PO DAILY 11/22/21 10/26/22 atorvastatin 20 mg tablet 20 mg PO DAILY 11/22/21 10/26/22 furosemide 40 mg tablet 40 mg PO DAILY 11/22/21 10/26/22 metoprolol tartrate 50 mg tablet 50 mg PO BID 11/22/21 10/26/22 dapagliflozin propanediol 5 mg 5 mg PO DAILY 07/19/22 10/26/22 tablet (Farxiga) Lactobacillus rhamnosus GG 10 1 cap PO DAILY 08/24/22 10/26/22 billion cell capsule (Culturelle) acetaminophen 325 mg tablet 650 mg PO Q6H PRN Fever Or Pain 08/24/22 10/26/22 bupropion HCl 100 mg tablet 100 mg PO BID 08/24/22 10/26/22 glipizide 10 mg tablet, extended 10 mg PO BID 08/24/22 10/26/22 release 24 hr insulin glargine 100 unit/mL (3 35 unit subcut BEDTIME 08/24/22 10/26/22 mL) subcutaneous pen (Lantus Solostar U-100 Insulin) insulin lispro 100 unit/mL 0 sliding scale dose subcut BID 08/24/22 10/26/22 subcutaneous cartridge (Humalog U-100 Insulin) loperamide 2 mg tablet 2 mg PO Q4H PRN Loose Stool 08/24/22 10/26/22 sennosides 8.6 mg tablet (senna) 8.6 mg PO DAILY PRN Constipation 08/24/22 10/26/22 flash glucose sensor (FreeStyle 10/23/23 Car 2 Sensor kit) sertraline 25 mg tablet 25 mg PO DAILY 10/23/23 etanercept 50 mg/mL (1 mL) 50 mg subcut QWEEK 08/20/24 subcutaneous pen injector (Enbrel SureClick) lisinopril 30 mg tablet 30 mg PO DAILY 08/20/24 metformin 500 mg tablet,extended 1,000 mg PO BID 08/20/24 release 24 hr Previous Rx's ?Medication ?Instructions ?Recorded apixaban 5 mg tablet (Eliquis) 5 mg PO BID #60 tabs 08/06/22 allopurinol 100 mg tablet 200 mg (2 x 100 mg) PO DAILY #180 07/08/24 tabs cephalexin 500 mg capsule 500 mg PO Q6H 7 days #28 caps 08/21/24 doxycycline hyclate 100 mg tablet 100 mg PO BID 7 days #14 tabs 08/21/24 Allergies Allergy/AdvReac Type Severity Reaction Status Date / Time famotidine [From Pepcid] Allergy Intermediate Hallucinati Verified 08/29/24 17:56 ons Review of Systems Review of Systems: Yes all other systems are reviewed and are negative [facility] Past Medical History Attestation statement: The following information was validated with the patient. 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 Back pain Screening-pulmonary TB Encounter for screening for other viral diseases ADHD Hypertension Psoriatic arthritis Obstructive sleep apnea Normal pressure hydrocephalus Restless leg syndrome Diabetic retinopathy Psoriasis Diabetes Surgical History H/O umbilical hernia repair History of cholecystectomy (07/26/22) Family History Family History Father Myocardial infarct Diabetes Mother Arthritis Social History Social History Household Members: None Household Members Other:: lives alone Housing: House Do you presently have visiting nurse or other home services: No Alcohol intake: never Patient Tobacco Use Status: Never used Tobacco Smoked in Last 30 Days: No e-Cigarette/Vaping Use: Never Used Use of substances other than those prescribed or required for medical reasons: No Advance Directives: Yes Advance Directives on File: Yes Advance Directives Date on File: 08/07/22 Do you have a plan to hurt others: No Plan service: No 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 Skin: Warm, dry, intact. No rashes or lesions. Head: Normocephalic, atraumatic. EENT: Hearing is intact b/l. Conjunctiva clear. Sclera is anicteric. PERRLA. EOM intact. Moist mucous membranes.? Neck: In cervical collar Cardiac: Chest wall symmetric. RRR. Lungs: Normal respiratory effort without accessory muscle use. CTA bilaterally. Abdomen: Soft, non-tender, non-distended. No rebound tenderness or guarding. Positive BS x4. Back: No midline spinous or paraspinal tenderness. No step off deformity. Ext: Upper and lower extremities atraumatic, without tenderness, deformity, swelling or erythema. No peripheral edema. No calf tenderness bilaterally. Full ROM intact to bilateral knees. No pain. Neuro: AOx2. Normal speech. Strength 4/5 intact throughout. No saddle anesthesia. Sensation intact to light touch. NV intact distally. Course Course Course Narrative: CBC showing leukocytosis to 12. H&H stable. Chemistry without light abnormality requiring intervention. Acute on chronic injury with BUN of 56 and creatinine of 1.68. Random glucose 185. Liver function around baseline. Total CK 32. No concern for rhabdo. BNP elevated to 197. Initial troponin undetectable. EKG showing normal sinus rhythm with a rate of 65 beats per minute, QT 404 QTC 420, no acute ischemic changes or ST elevations. TSH WNL. Negative COVID, flu, RSV. CT head/brain without bleed or skull fracture. CT cervical spine without fracture or subluxation. Cervical collar removed. Chest x-ray and x-ray of right knee are pending. > spoke with hospitalist, Dr. Sanderson. patient to be admitted to medicine for acute kidney injury superimposed on chronic kidney disease. > 1L IVF ordered Medications Administered Generic Name Dose Route Start Last Admin Trade Name Freq PRN Reason Stop Dose Admin Sodium Chloride 1,000 mls @ 500 mls/hr 08/29/24 19:45 08/29/24 21:19 Ns IV 08/29/24 21:44 500 mls/hr .Q2H BENIGNO Administration Medical Decision Making Medical Decision Making [facility] Narrative: 79 year old male with pmhx significant for cardiomegaly, T2DM, gout, JASE, PVD, restless legs syndrome, HTN, ADHD, stage III CKD, atrial flutter, atrial fibrillation, on Eliquis presents to the ED today for evaluation s/p unwitnessed fall today. Vital signs are stable, he is well-appearing and in no acute distress. Exam benign. No evidence of fluid overload. Differential diagnosis includes anemia, electrolyte abnormality, dehydration, orthostatic hypotension, GAIL, ACS, arrhythmia, pneumonia, viral syndrome, bronchitis, ICH, intracranial bleed, cervical fracture versus subluxation, contusion Plan for blood work, EKG, chest x-ray, x-ray right knee, CT head/C-spine, re-evaluation Differential Diagnosis Differential Diagnoses: The differential diagnosis associated with the presentation includes As above Admission/Observation Consideration of admission/observation: Escalation of care including admission/observation considered patient admitted to medicine for acute on chronic kidney injury Consult Healthcare Provider Management of the patient was discussed with: Hospitalist (dr. sanderson) Lab Data MDM Lab Attestation statement: I reviewed the patient's lab results. As above 08/29/24 18:53 08/29/24 18:53 Labs: Lab Results 08/29/24 08/29/24 Range/Units 18:17 18:53 WBC 12.0 H (4.8-10.8) X10*3/uL RBC 5.41 (4.60-5.80) X10*6/uL Hgb 13.5 L (14.0-18.0) g/dl Hct 42.0 (42.0-52.0) % MCV 77.6 L (80.0-98.0) fL MCH 25.0 L (27.0-33.0) pg MCHC 32.1 (31.0-36.0) g/dl RDW 18.3 H (11.0-16.0) % Plt Count 287 D (160-400) X10*3/uL MPV 10.3 (9.4-12.4) fL Immature Gran % (Auto) 0.5 H (0.0-0.4) % Neut % (Auto) 75.6 H (45-73) % Lymph % (Auto) 11.9 L (20-40) % [place] % (Auto) 9.8 (2-11) % Eos % (Auto) 1.8 (0-4) % Baso % (Auto) 0.4 (0-2) % Lymph # (Auto) 1.4 (1.2-4.9) X10*3/uL [place] # (Auto) 1.2 (0.1-1.2) X10*3/uL Eos # (Auto) 0.2 (0.0-0.4) X10*3/uL Baso # (Auto) 0.1 (0.0-0.2) X10*3/uL Abs Immat Gran (auto) 0.06 H (0.00-0.03) X10*3/uL Absolute Neuts (auto) 9.1 H (2.0-8.3) x10*3/uL Absolute Nucleated RBC 0.000 (0.0-0.012) X10*3/uL Nucleated RBC % (auto) 0.0 (0.0-0.2) /100WBC Sodium 137 (135-145) mmol/L Potassium 4.9 (3.3-5.1) mmol/L Chloride 106 (96-108) mmol/L Carbon Dioxide 25 (22-29) mmol/L Anion Gap 11 L (12-20) BUN 56 H (9-16) mg/dL Creatinine 1.68 H (0.5-1.4) mg/dL Estim Creat Clear Calc 35.0 Estimated GFR 40 POC Glucose 201 H (60-115) mg/dL Random Glucose 185 H (60-115) mg/dL Calcium 9.6 (8.4-10.2) mg/dL Magnesium 2.0 (1.6-2.6) mg/dL Total Bilirubin 0.2 (0.0-1.0) mg/dL AST 17 (5-37) U/L ALT 13 (0-40) U/L Alkaline Phosphatase 121 H (39-117) U/L Total Creatine Kinase 32 L (38-174) U/L Troponin I High Sens < 2.7 (<3.5-35.0) ng/L B-Natriuretic Peptide 197 H (<100) pg/mL Total Protein 7.9 (6.5-8.0) g/dL Albumin 4.0 (3.5-5.0) g/dL TSH 1.62 (0.32-4.0) uIU/mL Influenza Type A (PCR) NEGATIVE (Negative) Influenza Type B (PCR) NEGATIVE (Negative) RSV RNA Qual (PCR) NEGATIVE (Negative) SARS-CoV-2 RNA (RT-PCR) NEGATIVE (Negative) Independent Interpretation I performed an independent interpretation of an: EKG, Plain X-Ray and CT Scan Interpretation: EKG showing normal sinus rhythm with a rate of 65 beats per minute, QT 404 QTC 420, no acute ischemic changes or ST elevations. CT head/brain without bleed or skull fracture CT cervical spine without fracture or subluxation Chest x-ray without pulmonary edema, no infiltrate or consolidation XR right knee without fracture Radiology Impression Discussion of test interpretation with radiology: I have reviewed the radiologist's reading. Radiologist Impression: Date of Service: 08/29/24 Procedure(s): CT cervical spine wo IV con Accession Number(s): [id number] cc: Jesika Joshua~ Report Number: [id number]: Total DLP = 0.00 mGy-cm CLINICAL HISTORY: fall uknown head strke CT cervical spine without contrast Comparison: None Findings: No acute fracture or dislocation. Posterior alignment is normal. Moderate to severe degenerative change. FRONT ATTENDANT shunt tubing in right neck. Impression: No acute processes This document has been electronically signed by: Tom Appiah MD on 08/29/2024 20:11:34 Date of Service: 08/29/24 Procedure(s): CT head/brain wo IV con Accession Number(s): [id number] cc: Jesika Joshua~ Report Number: [id number]: Total DLP = 0.00 mGy-cm CLINICAL HISTORY: fall unknown head strke thinners CT head without contrast Comparison: None Findings: No acute intracranial fluid collection or hematoma identified. Right frontal ventricular shunt with nonspecific ventricular dilation. No prior studies are available for comparison. Moderate chronic ischemic white matter disease with volume loss. No acute process in sinuses or mastoids. No acute bony abnormality. Impression: No acute intracranial process This document has been electronically signed by: oTm Appiah MD on 08/29/2024 20:03:04 Date of Service: 08/29/24 Procedure(s): XR knee RT 4V Accession Number(s): [id number] cc: Physician,None ; Jesika Joshua~ CLINICAL HISTORY: acute on chronic knee pain s p fall 4 view right knee Comparison: CR/SR - XR KNEE RT 2V - 05/22/24 06:46 EST Findings: No acute fracture. No joint effusion. Tricompartment osteophyte formation with joint space loss diffusely greatest in the medial and patellofemoral compartments. Chondrocalcinosis. No aggressive osseous lesions. Vascular calcium. IMPRESSION: 1. Moderate tricompartment osteoarthropathy similar to the prior exam. No acute fracture. No joint effusion. This document has been electronically signed by: Cristal Ritter MD on 08/29/2024 21:21:56 Date of Service: 08/29/24 Procedure(s): XR chest 1V Accession Number(s): [id number] cc: Physician,None ; Jesika Joshua~ CLINICAL HISTORY: syncope 1 view chest x-ray Comparison: None Findings: The lungs are clear. Heart size is normal. No acute fracture. Partially visualized shunt tubing coursing over the right thorax appears in continuity. IMPRESSION: 1. No acute findings. This document has been electronically signed by: Cristal Ritter MD on 08/29/2024 21:17:45 Independent Historian Clinical information obtained from an independent historian. History obtained from or confirmed by: EMS and Other (facility [facility]) External Record Review External record reviewed: Inpatient record, Office record and Outpatient record Chronic Conditions Patient?s care impacted by: Other (CKD) Social Determinants Patient?s care significantly limited by Social Determinants of Health including: Other Social Determinant of Health Critical Care Time Critical Care Time Critical Care Time: Yes Total Critical Care Time: 35 Attestation: Critical care time in the amount of 35 minutes has been provided to the patient in terms of direct patient care, frequent reevaluation, consultation with hospitalist, review and interpretation of medical data and results, and management of potentially life-threatening conditions. This is all outside of any medical procedures. Discharge Plan Discharge Clinical Impression: Acute kidney injury superimposed on chronic kidney disease, Fall Patient Disposition: Admitted As Inpatient
--- NOTE | 2024-08-29 18:10 | ECG_ITS ---
Test Reason : SYNCOPE Blood Pressure : */* mmHG Vent. Rate : 65 BPM Atrial Rate : 65 BPM P-R Int : 166 ms QRS Dur : 78 ms QT Int : 404 ms P-R-T Axes : 49 48 77 degrees QTcB Int : 420 ms Normal sinus rhythm Normal ECG When compared with ECG of 22-May-2024 05:49, No significant change was found Referred By: Jesika Joshua Electronically Signed By: JULIO BALL
[2024-08-29 18:20] LABS: Glucose, Whole Blood 201 mg/dL (60-115)
--- NOTE | 2024-08-29 18:22 | PC.NURSE ---
Awaiting c-spine clearance before preforming orthostatic vitals. Pt resting comfortably in bed.
[2024-08-29 18:59] LABS: MANUAL DIFF FLAG NO
[2024-08-29 19:01] LABS: Basophils Absolute Auto 0.1 X10*3/uL (0.0-0.2); Basophils Percent Auto 0.4 % (0-2); Eosinophils Absolute Auto 0.2 X10*3/uL (0.0-0.4); Eosinophils Percent Auto 1.8 % (0-4); Hemoglobin 13.5 g/dl (14.0-18.0); Imm Gran Abs Auto 0.06 X10*3/uL (0.00-0.03); Imm Gran Pct Auto 0.5 % (0.0-0.4); Lymphocytes Absolute Auto 1.4 X10*3/uL (1.2-4.9); Lymphocytes Percent Auto 11.9 % (20-40); Mean Corpuscular HGB Conc 32.1 g/dl (31.0-36.0); Mean Corpuscular Volume 77.6 fL (80.0-98.0); Mean Platelet Volume 10.3 fL (9.4-12.4); Monocytes Absolute Auto 1.2 X10*3/uL (0.1-1.2); Monocytes Percent Auto 9.8 % (2-11); Neutrophils Absolute Auto 9.1 x10*3/uL (2.0-8.3); Neutrophils Percent Auto 75.6 % (45-73); Platelet Count 287 X10*3/uL (160-400); Red Blood Count 5.41 X10*6/uL (4.60-5.80); Red Cell Distribution Width 18.3 % (11.0-16.0)
[2024-08-29 19:16] LABS: Alanine Aminotransferase 13 U/L (0-40); Alkaline Phosphatase 121 U/L (39-117); Anion Gap 11 (12-20); Aspartate Amino Transferase 17 U/L (5-37); Bilirubin Total 0.2 mg/dL (0.0-1.0); Blood Urea Nitrogen 56 mg/dL (9-16); Calcium 9.6 mg/dL (8.4-10.2); Carbon Dioxide 25 mmol/L (22-29); Chloride 106 mmol/L (96-108); Estimated Glomerular Filt Rate 40; Glucose Random 185 mg/dL (60-115); Potassium 4.9 mmol/L (3.3-5.1); Sodium 137 mmol/L (135-145); Total Protein 7.9 g/dL (6.5-8.0)
[2024-08-29 19:21] LABS: Troponin-I High Sensitivity < 2.7 ng/L (<3.5-35.0)
[2024-08-29 19:22] LABS: B Type Natriuretic Peptide 197 pg/mL (<100)
[2024-08-29 19:35] LABS: TSH reflex Free T4 1.62 uIU/mL (0.32-4.0)
[2024-08-29 19:37] LABS: Influenza A PCR NEGATIVE (Negative); Influenza B PCR NEGATIVE (Negative); Resp Syncy Virus RNA Qual PCR NEGATIVE (Negative); SARS COV2 PCR INHOUSE NEGATIVE (Negative)
[2024-08-29 20:32] VITALS: BP 148/62; PULSE 70
[2024-08-29 20:34] VITALS: BP 147/80; PULSE 73
[2024-08-29 20:36] VITALS: BP 132/86; PULSE 72
[2024-08-29 20:40] VITALS: BP 132/86; PULSE 72; RESP 16; TEMP 36.7; O2SAT 95
[2024-08-29] MEDS: 0.9 % Sodium Chloride 1,000 ML 500 ML IV (21:19)
[2024-08-29 21:37] LABS: Glucose, Whole Blood 142 mg/dL (60-115)
--- NOTE | 2024-08-29 21:38 | P.HPHOSP_ITS ---
History of Present Illness Date of Service: 08/29/24 Attending physician on admission: Lobito Sanderson Chief Complaint: Falls patient is a 79-year-old male with a past medical history significant for dementia, cardiomegaly, type 2 diabetes on insulin, gout, JASE, PVD, RLS, HTN and paroxysmal AFib on Eliquis, who presented to the ED due to 2 recent falls. The patient notes that these happened because he has been stupid , he reports that he has not the following directions when transferring to the bed. He denies any head strike or loss of consciousness either time. He does note that he has and she will be rehab due to unsteady gait and has been using a wheelchair which is not his normal baseline prior to going to rehab. He is completely asymptomatic during the falls, purely mechanical. He denies any chest pain, urgency or dysuria. Currently he has no medical complaints. He does have a bandage on the right lower extremity which he reports that his skin is flaking and peeling. no pain or drainage from the bandaged area. Review of Systems 2 Constitutional: Constitutional: Denies chills, Denies fatigue, Denies fever(s), Reports frequent falls and Denies headache(s) Eyes: Eyes: Denies change in vision and Denies photophobia ENT: Denies headache(s), Denies nasal congestion, Denies nasal discharge and Denies sore throat Cardiovascular: Cardiovascular: Denies chest pain, Denies rapid heart rate, Denies leg edema, Denies lightheadedness and Denies dyspnea Respiratory: Respiratory: Denies chest congestion, Denies cough, Denies dyspnea and Denies wheezing Gastrointestinal: Gastrointestinal: Denies abdominal pain, Denies diarrhea, Denies nausea and Denies vomiting Genitourinary: Genitourinary: Denies dysuria, Denies urinary frequency and Denies urinary urgency Musculoskeletal: Musculoskeletal: Denies back pain and Denies myalgias Integumentary/Breasts: Skin/Breast: Reports as per HPI Neurologic: Denies confusion, Reports frequent falls and Denies headache(s) Psychiatric: Psychiatric: Denies confusion Endocrine: Endocrine: Denies fatigue Hematologic/Lymphatic: Hematologic/Lymphatic: Denies easy bleeding and Denies easy bruising Allergic/Immunologic: Allergic/Immunologic: Denies wheezing [facility] Medical History Chronic kidney disease, stage 3 unspecified Gout Leukocytosis Paroxysmal atrial flutter Gallstones Abnormal LFTs Paroxysmal atrial fibrillation Cardiomegaly Protein malnutrition Immunosuppression due to drug therapy New onset a-fib 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, shelter, current use Back pain Screening-pulmonary TB Encounter for screening for other viral diseases ADHD Hypertension Psoriatic arthritis Obstructive sleep apnea Normal pressure hydrocephalus Restless leg syndrome Diabetic retinopathy Psoriasis Diabetes Functional capacity: wheelchair bound Family History Father Myocardial infarct Diabetes Mother Arthritis Surgical History H/O umbilical hernia repair History of cholecystectomy (07/26/22) Social History Household Members: None Household Members Other:: lives alone Housing: House Do you presently have visiting nurse or other home services: No Alcohol intake: never Patient Tobacco Use Status: Never used Tobacco Smoked in Last 30 Days: No e-Cigarette/Vaping Use: Never Used Use of substances other than those prescribed or required for medical reasons: No Advance Directives: Yes Advance Directives on File: Yes Advance Directives Date on File: 08/07/22 Do you have a plan to hurt others: No Plan service: No Current occupational status: 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 Glucose (Glucose Gel 15 Gm Gel..Gram.) 15 gm PO Q15M PRN; Protocol PRN Reason: per Hypoglycemia Standing Ord. Sodium Chloride (Ns) 1,000 mls @ 500 mls/hr IV .Q2H BENIGNO Stop: 08/29/24 21:44 Last Admin: 08/29/24 21:19 Dose: 500 mls/hr Insulin Human Lispro (Insulin Lispro 100 Unit/Ml 3 Ml Vial) 0 unit SUBCUT QIDACHS BENIGNO; Protocol Home Medications ?Medication ?Instructions ?Recorded ?Confirmed ?Last Taken ?Type amlodipine 10 mg tablet 10 mg PO DAILY 11/22/21 10/26/22 04/25/22 History atorvastatin 20 mg tablet 20 mg PO DAILY 11/22/21 10/26/22 04/25/22 History furosemide 40 mg tablet 40 mg PO DAILY 11/22/21 10/26/22 04/25/22 History metoprolol tartrate 50 mg tablet 50 mg PO BID 11/22/21 10/26/22 04/25/22 History dapagliflozin propanediol 5 mg 5 mg PO DAILY 07/19/22 10/26/22 Unknown History tablet (Farxiga) Lactobacillus rhamnosus GG 10 1 cap PO DAILY 08/24/22 10/26/22 Unknown History billion cell capsule (Culturelle) acetaminophen 325 mg tablet 650 mg PO Q6H PRN Fever Or Pain 08/24/22 10/26/22 Unknown History bupropion HCl 100 mg tablet 100 mg PO BID 08/24/22 10/26/22 Unknown History glipizide 10 mg tablet, extended 10 mg PO BID 08/24/22 10/26/22 Unknown History release 24 hr insulin glargine 100 unit/mL (3 35 unit subcut BEDTIME 08/24/22 10/26/22 Unknown History mL) subcutaneous pen (Lantus Solostar U-100 Insulin) insulin lispro 100 unit/mL 0 sliding scale dose subcut BID 08/24/22 10/26/22 Unknown History subcutaneous cartridge (Humalog U-100 Insulin) loperamide 2 mg tablet 2 mg PO Q4H PRN Loose Stool 08/24/22 10/26/22 Unknown History sennosides 8.6 mg tablet (senna) 8.6 mg PO DAILY PRN Constipation 08/24/22 10/26/22 Unknown History flash glucose sensor (FreeStyle 10/23/23 Unknown History Car 2 Sensor kit) sertraline 25 mg tablet 25 mg PO DAILY 10/23/23 Unknown History etanercept 50 mg/mL (1 mL) 50 mg subcut QWEEK 08/20/24 Unknown History subcutaneous pen injector (Enbrel SureClick) lisinopril 30 mg tablet 30 mg PO DAILY 08/20/24 Unknown History metformin 500 mg tablet,extended 1,000 mg PO BID 08/20/24 Unknown History release 24 hr Physical Exam 2 Vital Signs and Narrative: Vital Signs: Last Vital Signs Temp 98.1 F 08/29/24 20:40 Pulse 72 08/29/24 20:40 Resp 16 08/29/24 20:40 BP 132/86 08/29/24 20:40 Pulse Ox 95 08/29/24 20:40 O2 Del Method Room Air 08/29/24 20:40 BMI result Body Mass Index 27.4 General: Alert and oriented to person and place, not aware of time, unable to recall the president, no acute distress Resp: CTA bilaterally, no wheezing or rhonchi CVS: S1, S2, RRR GI: +BS, NT, no distention Skin: Warm, dry. Gauze bandage on right lower leg just proximal to the ankle, undressed, scant blood from small abrasion, no increased warmth, erythema or edema. No pain with palpation or removal of bandage. Neuro: Cranial nerves II-XII grossly intact bilaterally. Motor grossly intact bilaterally Extremities: No LE edema Psych: Appropriate affect Const: General: No confusion Orientation/consciousness: No confusion Eyes: Direct Ophthalmoscopy: No photophobia Neuro: General: No confusion Results Labs 08/29/24 18:53 08/29/24 18:53 Labs: Laboratory Results - last 24 hr 08/29/24 08/29/24 08/29/24 18:17 18:53 21:34 MCV 77.6 L MCH 25.0 L MCHC 32.1 RDW 18.3 H Plt Count 287 D MPV 10.3 Immature Gran % (Auto) 0.5 H Neut % (Auto) 75.6 H Lymph % (Auto) 11.9 L [place] % (Auto) 9.8 Eos % (Auto) 1.8 Baso % (Auto) 0.4 Lymph # (Auto) 1.4 [place] # (Auto) 1.2 Eos # (Auto) 0.2 Baso # (Auto) 0.1 Abs Immat Gran (auto) 0.06 H Absolute Neuts (auto) 9.1 H Absolute Nucleated RBC 0.000 Nucleated RBC % (auto) 0.0 Anion Gap 11 L Estim Creat Clear Calc 35.0 Estimated GFR 40 POC Glucose 201 H 142 H Random Glucose 185 H Calcium 9.6 Magnesium 2.0 Total Bilirubin 0.2 AST 17 ALT 13 Alkaline Phosphatase 121 H Total Creatine Kinase 32 L Troponin I High Sens < 2.7 B-Natriuretic Peptide 197 H Total Protein 7.9 Albumin 4.0 TSH 1.62 Influenza Type A (PCR) NEGATIVE Influenza Type B (PCR) NEGATIVE RSV RNA Qual (PCR) NEGATIVE SARS-CoV-2 RNA (RT-PCR) NEGATIVE Assessment and Plan (1) Acute kidney injury superimposed on chronic kidney disease: Status: Acute (2) Frequent falls: Status: Acute Plan patient is a 79-year-old male with a past medical history significant for dementia, cardiomegaly, type 2 diabetes on insulin, gout, JASE, PVD, RLS, HTN and paroxysmal AFib on Eliquis, who presented to the ED due to 2 recent falls. GAIL on CKD - creatinine 1.68, baseline 1.2 - given 1 L IV fluids in ED - avoid nephrotoxins - follow BMP Frequent falls, mechanical - head CT negative - CT C-spine negative - COVID/flu/RSV negative - UA pending - chest x-ray negative, BNP 197 - Xray R knee without acute findings - WBC 12.0, no infectious etiology identified at this time, likely reactive - EKG with NSR - negative orthostatics - PT eval in a.m. Type 2 diabetes - diabetic diet - sliding scale insulin - await med rec for lantus dose, no med list provded to ED and pt does not know lantus dose Paroxysmal AFib - EKG with NSR - continue home meds including Eliquis, reduced dose due to GAIL Gout - continue home meds PVD/HTN - continue home meds RLS - continue home meds Full code VTE prophylaxis: Eliquis Patient with GAIL on CKD, initially seen for frequent mechanical falls, requiring admission for at least 2 midnight stay for IV fluids and monitoring. Quality Stroke Does the patient have a stroke diagnosis?: No VTE Prior VTE?: No VTE Risk Level:: Medical - moderate - high VTE Device Contraindication: Treatment Not Indicated VTE Drug Contraindication: N/A - Med Ordered
--- NOTE | 2024-08-29 23:04 | PC.NURSE ---
assumed care of the patient at 23:00. report received from Nicolette WALTON
[2024-08-30] MEDS: Apixaban 2.5 MG TABLET PO (05:16)
[2024-08-30 05:18] VITALS: BP 149/47; PULSE 65; RESP 16; TEMP 36.5; O2SAT 95
[2024-08-30 05:32] LABS: Appearance Urine Clear; Color Urine Yellow; Glucose Urine UA Negative (Negative); Leukocyte Esterase Urine Negative (Negative); Nitrite Urine Negative (Negative); PH 5.5 (5.0-9.0); Specific Gravity - Urine 1.015 (1.005-1.025); UMIC TRIGGER UACC YES; Urine Blood Negative (Negative); Urine Ketones Negative (Negative); Urine Protein 30 (1+) mg/dL (Neg-Trace)
[2024-08-30 05:37] LABS: Bacteria Urine None Seen (None Seen); Hyaline Casts Urine 0-2 /LPF (0-2); RBC Urine 0-2 /HPF (0-2); Squamous Epithelial Cell Urine 0-2 /HPF (0-2); WBC Urine 0-5 /HPF (0-5)
--- NOTE | 2024-08-30 06:13 | PC.NURSE ---
pt resting comfortably on stretcher, no apparent distress noted, respirations even and unlabored. pt denies any acute pain, no complaints. call ramirez within reach, plan of care continues.
[2024-08-30 07:00] LABS: Hematocrit 40.3 % (42.0-52.0); Hemoglobin 12.5 g/dl (14.0-18.0); Mean Corpuscular Hemoglobin 24.4 pg (27.0-33.0); Mean Corpuscular Volume 78.7 fL (80.0-98.0); Mean Platelet Volume 10.4 fL (9.4-12.4); Platelet Count 265 X10*3/uL (160-400); Red Blood Count 5.12 X10*6/uL (4.60-5.80); White Blood Count 8.8 X10*3/uL (4.8-10.8)
[2024-08-30 07:15] LABS: Anion Gap 13 (12-20); Blood Urea Nitrogen 39 mg/dL (9-16); Calcium 9.2 mg/dL (8.4-10.2); Carbon Dioxide 21 mmol/L (22-29); Chloride 112 mmol/L (96-108); Creatinine Clr Calc Pharmacy 49.9; Estimated Glomerular Filt Rate 60; Glucose Random 129 mg/dL (60-115); Potassium 4.3 mmol/L (3.3-5.1); Sodium 142 mmol/L (135-145)
[2024-08-30 07:20] LABS: Glucose, Whole Blood 136 mg/dL (60-115)
[2024-08-30] MEDS: Apixaban 5 MG TABLET PO ×2 (08:28→22:01)
[2024-08-30] MEDS: 0.9 % Sodium Chloride Flush 3 ML SYRINGE IVFLUSH ×3 (08:28→22:01)
[2024-08-30 08:30] VITALS: BP 155/60; PULSE 68; RESP 16; TEMP 36.4; O2SAT 95
--- NOTE | 2024-08-30 09:54 | P.PNIM_ITS ---
Subjective Subjective Date of Service: 08/30/24 Interval History: tremor Physical Exam 2 Vital Signs: Vital Signs: Last Vital Signs Temp 97.6 F 08/30/24 08:30 Pulse 68 08/30/24 08:30 Resp 16 08/30/24 08:30 BP 155/60 H 08/30/24 08:30 Pulse Ox 95 08/30/24 08:30 O2 Del Method Room Air 08/30/24 08:30 BMI result Body Mass Index 27.4 General: AO X 3, no acute distress Resp: CTA bilateral, no accessory muscles used CVS: S1,S2,RRR GI: soft, non tender, non distended Neuro: motor grossly intact, alert, tremor Psych: appropriate affect, appropriate insight Objective Data Active Medications Acetaminophen (Acetaminophen 325 Mg Tablet) 975 mg PO Q6H PRN PRN Reason: Pain, Mild 1-3,fever,headache Apixaban (Apixaban 5 Mg Tablet) 5 mg PO BID [facility] Last Admin: 08/30/24 08:28 Dose: 5 mg Documented By: LISA Calcium Carbonate (Calcium Carbonate 750 Mg Tab.Chew) 750 mg PO Q4H PRN PRN Reason: Heartburn Dextrose (Dextrose 50 % 25 Gm/50 Ml Syringe) 25 gm IVPUSH Q15M PRN; Protocol PRN Reason: per Hypoglycemia Standing Ord. Glucose (Glucose Gel 15 Gm Gel..Gram.) 15 gm PO Q15M PRN; Protocol PRN Reason: per Hypoglycemia Standing Ord. Hydromorphone HCl (Hydromorphone Hcl 1 Mg/Ml Syringe) 0.25 mg IVPUSH Q4H PRN; Protocol PRN Reason: Pain, Severe (Pain Scale 7-10) Insulin Human Lispro (Insulin Lispro 100 Unit/Ml 3 Ml Vial) 0 unit SUBCUT QIDACHS [facility]; Protocol Last Admin: 08/30/24 07:20 Dose: Not Given Documented By: LISA Non-Admin Reason: No Insulin Coverage Magnesium Hydroxide (Milk Of Magnesia 30 Ml Oral.Susp) 30 ml PO DAILY PRN PRN Reason: Constipation Melatonin (Melatonin 3 Mg Tablet) 6 mg PO BEDTIME PRN PRN Reason: Insomnia Ondansetron HCl (Ondansetron Hcl 4 Mg/2 Ml Vial) 4 mg IVPUSH Q8H PRN PRN Reason: Nausea and Vomiting Oxycodone HCl (Oxycodone Hcl Immed Release 5 Mg Tablet) 5 mg PO Q6H PRN PRN Reason: Pain, Moderate(Pain Scale 4-6) Sodium Chloride (0.9 % Sodium Chloride Flush 3 Ml Syringe) 3 ml IVFLUSH QSHIFT [facility] Last Admin: 08/30/24 08:28 Dose: 3 ml Documented By: LISA Labs 08/30/24 06:38 08/30/24 06:38 Labs: Laboratory Results - last 24 hr 08/29/24 08/29/24 08/29/24 18:17 18:53 21:34 MCV 77.6 L MCH 25.0 L MCHC 32.1 RDW 18.3 H Plt Count 287 D MPV 10.3 Immature Gran % (Auto) 0.5 H Neut % (Auto) 75.6 H Lymph % (Auto) 11.9 L [place] % (Auto) 9.8 Eos % (Auto) 1.8 Baso % (Auto) 0.4 Lymph # (Auto) 1.4 [place] # (Auto) 1.2 Eos # (Auto) 0.2 Baso # (Auto) 0.1 Abs Immat Gran (auto) 0.06 H Absolute Neuts (auto) 9.1 H Absolute Nucleated RBC 0.000 Nucleated RBC % (auto) 0.0 Anion Gap 11 L Estim Creat Clear Calc 35.0 Estimated GFR 40 POC Glucose 201 H 142 H Random Glucose 185 H Calcium 9.6 Magnesium 2.0 Total Bilirubin 0.2 AST 17 ALT 13 Alkaline Phosphatase 121 H Total Creatine Kinase 32 L Troponin I High Sens < 2.7 B-Natriuretic Peptide 197 H Total Protein 7.9 Albumin 4.0 TSH 1.62 Urine Color Urine Appearance Urine pH Ur Specific [place] Urine Protein Urine Glucose (UA) Urine Ketones Urine Blood Urine Nitrite Ur Leukocyte Esterase Urine RBC Urine WBC Ur Squamous Epith Cells Urine Bacteria Hyaline Casts Influenza Type A (PCR) NEGATIVE Influenza Type B (PCR) NEGATIVE RSV RNA Qual (PCR) NEGATIVE SARS-CoV-2 RNA (RT-PCR) NEGATIVE 08/30/24 08/30/24 08/30/24 05:20 06:38 07:16 MCV 78.7 L MCH 24.4 L MCHC 31.0 RDW 18.0 H Plt Count 265 MPV 10.4 Immature Gran % (Auto) Neut % (Auto) Lymph % (Auto) [place] % (Auto) Eos % (Auto) Baso % (Auto) Lymph # (Auto) [place] # (Auto) Eos # (Auto) Baso # (Auto) Abs Immat Gran (auto) Absolute Neuts (auto) Absolute Nucleated RBC 0.000 Nucleated RBC % (auto) 0.0 Anion Gap 13 Estim Creat Clear Calc 49.9 Estimated GFR 60 POC Glucose 136 H Random Glucose 129 H Calcium 9.2 Magnesium Total Bilirubin AST ALT Alkaline Phosphatase Total Creatine Kinase Troponin I High Sens B-Natriuretic Peptide Total Protein Albumin TSH Urine Color Yellow Urine Appearance Clear Urine pH 5.5 Ur Specific [place] 1.015 Urine Protein 30 (1+) H Urine Glucose (UA) Negative Urine Ketones Negative Urine Blood Negative Urine Nitrite Negative Ur Leukocyte Esterase Negative Urine RBC 0-2 Urine WBC 0-5 Ur Squamous Epith Cells 0-2 Urine Bacteria None Seen Hyaline Casts 0-2 Influenza Type A (PCR) Influenza Type B (PCR) RSV RNA Qual (PCR) SARS-CoV-2 RNA (RT-PCR) Assessment and Plan (1) Cardiomegaly: Status: Acute Plan 79M PMH kvng, pvd, htn, psoriatic arthritis, unspecified dementia, mood disorder, DM, pafib, presented with frequent falls, lisandra lisandra resolved with iv fluids falls likely related to progression of tremor, frailty eventual return to STR dm insulin psoriatic arthritis follows with rheum denies flare unspecified dementia stable pafib eliquis dvt prophylaxi s- eliquis full code reason for continued hospitalization:monitoring lisandra Quality Stroke Does the patient have a stroke diagnosis?: No VTE Prior VTE?: No VTE Risk Level:: Medical - moderate - high VTE Device Contraindication: Treatment Not Indicated VTE Drug Contraindication: N/A - Med Ordered
[2024-08-30 12:25] LABS: Glucose, Whole Blood 217 mg/dL (60-115)
--- NOTE | 2024-08-30 12:30 | PC.NURSE ---
Pt had completed full lunch tray before POC was checked for sliding scale insulin. Insulin held.
--- NOTE | 2024-08-30 15:49 | PHA.MEDREC ---
Addendum entered by Jing Proctor RPh 08/30/24 16:01: MED REC WAS REVIEWED BY [facility]. Original Note: Pharmacy Consult ? Medication Reconciliation Pharmacy has completed the medication reconciliation. [facility]
--- NOTE | 2024-08-30 17:02 | PC.NURSE ---
Pt confused, trying to climb OOB stating he needs to get home to his daughters; this RN spoke with one daughter earlier and relayed that to pt, which seemed to reassure him; a few moments later, pt was trying to climb OOB again for the same reason; bed alarm in place; will set up safety camera; pt may need a sitter overnight; provider contacted
[2024-08-30 17:33] LABS: Glucose, Whole Blood 197 mg/dL (60-115)
[2024-08-30 17:43] VITALS: BP 156/75; PULSE 76; RESP 19; TEMP 36.7; O2SAT 98
--- NOTE | 2024-08-30 17:44 | MHC.EDTECH ---
patient was changed, repositioned, patient is also on a purewick out put was 900. nurse aware.
[2024-08-30] MEDS: Insulin Lispro 100 UNIT/ML 3 ML VIAL SUBCUT ×2 (18:00→22:01)
--- NOTE | 2024-08-30 18:51 | PC.NURSE ---
Pt calmer at this time; pt redirectible and cooperative with care at this time
[2024-08-30 21:00] VITALS: BP 135/75; PULSE 91; RESP 18; TEMP 37.2; O2SAT 92
[2024-08-30 21:13] LABS: Glucose, Whole Blood 241 mg/dL (60-115)
[2024-08-30 21:30] VITALS: BMI 25.5
[2024-08-30 23:27] VITALS: BP 119/60; PULSE 88; RESP 16; TEMP 36.1; O2SAT 94
[2024-08-31] VITALS (8 sets, daily range): BP systolic 140–175; BP diastolic 65–79; PULSE 63–91; RESP 16–18; TEMP 36–36.8; O2SAT 92–96
[2024-08-31 07:14] LABS: Hematocrit 42.3 % (42.0-52.0); Hematocrit 42.9 % (42.0-52.0); Hemoglobin 13.1 g/dl (14.0-18.0); Hemoglobin 13.2 g/dl (14.0-18.0); Mean Corpuscular HGB Conc 30.8 g/dl (31.0-36.0); Mean Corpuscular Hemoglobin 24.4 pg (27.0-33.0); Mean Corpuscular Volume 78.8 fL (80.0-98.0); Mean Corpuscular Volume 79.4 fL (80.0-98.0); Mean Platelet Volume 9.8 fL (9.4-12.4); Mean Platelet Volume 9.9 fL (9.4-12.4); Platelet Count 237 X10*3/uL (160-400); Platelet Count 249 X10*3/uL (160-400); Red Blood Count 5.37 X10*6/uL (4.60-5.80); Red Cell Distribution Width 18.5 % (11.0-16.0); White Blood Count 8.9 X10*3/uL (4.8-10.8); White Blood Count 9.4 X10*3/uL (4.8-10.8)
[2024-08-31 07:33] LABS: Anion Gap 13 (12-20); Blood Urea Nitrogen 32 mg/dL (9-16); Calcium 9.3 mg/dL (8.4-10.2); Carbon Dioxide 21 mmol/L (22-29); Chloride 111 mmol/L (96-108); Creatinine Clr Calc Pharmacy 48.2; Estimated Glomerular Filt Rate 57; Glucose Random 153 mg/dL (60-115); Potassium 4.7 mmol/L (3.3-5.1); Sodium 140 mmol/L (135-145)
[2024-08-31 07:33] LABS: Glucose, Whole Blood 154 mg/dL (60-115)
[2024-08-31] MEDS: Sertraline HCL 25 MG TABLET PO (07:47)
[2024-08-31] MEDS: Insulin Lispro 100 UNIT/ML 3 ML VIAL SUBCUT ×3 (07:47→21:30)
[2024-08-31] MEDS: Metoprolol Tartrate 50 MG TABLET PO ×2 (07:48→21:29)
[2024-08-31] MEDS: Apixaban 5 MG TABLET PO ×2 (07:48→21:29)
[2024-08-31] MEDS: amLODIPine Besylate 10 MG TABLET PO (07:49)
[2024-08-31] MEDS: 0.9 % Sodium Chloride Flush 3 ML SYRINGE IVFLUSH ×3 (07:49→21:31)
[2024-08-31] MEDS: Atorvastatin Calcium 20 MG TABLET PO (07:49)
[2024-08-31] MEDS: allopurinoL 100 MG TABLET 200 MG PO (07:49)
--- NOTE | 2024-08-31 08:38 | P.DS_ITS ---
DS: Providers Provider Date of Service: 09/01/24 Date of admission: 08/29/24 20:41 Date of discharge: 09/01/24 Primary care physician: None Physician Consults: 08/31/24 00:15 Consult to Wound Care Routine Reason for consultation: MASD to [place] area DS: Diagnosis Discharge Diagnosis (1) Cardiomegaly: Status: Acute DS: Summary Hospital Course Hospital Course: from initial hpi: 79-year-old male with a past medical history significant for dementia, cardiomegaly, type 2 diabetes on insulin, gout, JASE, PVD, RLS, HTN and paroxysmal AFib on Eliquis, who presented to the ED due to 2 recent falls. The patient notes that these happened because he has been stupid , he reports that he has not the following directions when transferring to the bed. He denies any head strike or loss of consciousness either time. He does note that he has and she will be rehab due to unsteady gait and has been using a wheelchair which is not his normal baseline prior to going to rehab. He is completely asymptomatic during the falls, purely mechanical. He denies any chest pain, urgency or dysuria. Currently he has no medical complaints. He does have a bandage on the right lower extremity which he reports that his skin is flaking and peeling. no pain or drainage from the bandaged area. hospital course: Patient was admitted for acute kidney injury which resolved with IV fluids. A lso has had more frequent falls likely related to percussion of chronic tremor and frailty. Patient is already at detention facility and she will continue with rehab and fall precautions. For diabetes was continued on insulin. For his psoriatic arthritis follows outpatient with Rheumatology and is on Enbrel. For unspecified dementia remained stable. For paroxysmal AFib was continued on Eliquis and metoprolol. Patient is feeling better will be discharged back to detention facility. Time Attestation Discharge Coordination Time (in mins): 33 Quality: Safe Use of Opioids Does Pt have an Active Cancer Diagnosis on the Problem List?: No Quality: Stroke Does the patient have a stroke diagnosis?: No Physical Exam Vital Signs: Vital Signs: Last Vital Signs Temp 97.6 F 08/31/24 07:24 Pulse 80 08/31/24 07:48 Resp 16 08/31/24 07:24 BP 140/72 H 08/31/24 07:48 Pulse Ox 95 08/31/24 07:24 O2 Del Method Room Air 08/31/24 07:24 BMI result Body Mass Index 25.5 General: AO X 3, no acute distress Resp: CTA bilateral, no accessory muscles used CVS: S1,S2,RRR GI: soft, non tender, non distended Neuro: motor grossly intact, alert, tremor Psych: appropriate affect, appropriate insight DS: Data Data Completed and Pending Completed studies during hospitalization [Text1]: Procedures Assistance with Respiratory Ventilation, Less than 24 Consecutive Hours, Continuous Positive Airway Pressure (04/28/22) Drainage of Gallbladder with Drainage Device, Percutaneous Approach (04/28/22) Inspection of Gallbladder, Percutaneous Endoscopic Approach (07/19/22) Introduction of Vasopressor into Peripheral Vein, Percutaneous Approach (04/28/22) Resection of Gallbladder, Open Approach (07/19/22) Labs on day of discharge: Laboratory Results - last 24 hr 08/30/24 08/30/24 08/30/24 12:21 17:28 21:10 WBC RBC Hgb Hct MCV MCH MCHC RDW Plt Count MPV Absolute Nucleated RBC Nucleated RBC % (auto) Sodium Potassium Chloride Carbon Dioxide Anion Gap BUN Creatinine Estim Creat Clear Calc Estimated GFR POC Glucose 217 H 197 H 241 H Random Glucose Calcium 08/31/24 08/31/24 08/31/24 07:01 07:01 07:01 WBC 8.9 9.4 RBC 5.37 5.40 Hgb 13.1 L Hct MCV MCH MCHC RDW Plt Count MPV Absolute Nucleated RBC Nucleated RBC % (auto) Sodium Potassium Chloride Carbon Dioxide Anion Gap BUN Creatinine Estim Creat Clear Calc Estimated GFR POC Glucose Random Glucose Calcium 08/31/24 08/31/24 08/31/24 07:01 07:01 07:01 WBC RBC Hgb 13.2 L Hct 42.3 42.9 MCV 78.8 L 79.4 L MCH 24.4 L MCHC RDW Plt Count MPV Absolute Nucleated RBC Nucleated RBC % (auto) Sodium Potassium Chloride Carbon Dioxide Anion Gap BUN Creatinine Estim Creat Clear Calc Estimated GFR POC Glucose Random Glucose Calcium 08/31/24 08/31/24 08/31/24 07:01 07:01 07:01 WBC RBC Hgb Hct MCV MCH 24.4 L MCHC 31.0 30.8 L RDW 18.5 H 18.5 H Plt Count 249 MPV Absolute Nucleated RBC Nucleated RBC % (auto) Sodium Potassium Chloride Carbon Dioxide Anion Gap BUN Creatinine Estim Creat Clear Calc Estimated GFR POC Glucose Random Glucose Calcium 08/31/24 08/31/24 08/31/24 07:01 07:01 07:01 WBC RBC Hgb Hct MCV MCH MCHC RDW Plt Count 237 MPV 9.9 9.8 Absolute Nucleated RBC 0.000 0.000 Nucleated RBC % (auto) 0.0 Sodium Potassium Chloride Carbon Dioxide Anion Gap BUN Creatinine Estim Creat Clear Calc Estimated GFR POC Glucose Random Glucose Calcium 08/31/24 08/31/24 07:01 07:29 WBC RBC Hgb Hct MCV MCH MCHC RDW Plt Count MPV Absolute Nucleated RBC Nucleated RBC % (auto) 0.0 Sodium 140 Potassium 4.7 Chloride 111 H Carbon Dioxide 21 L Anion Gap 13 BUN 32 H Creatinine 1.22 Estim Creat Clear Calc 48.2 Estimated GFR 57 POC Glucose 154 H Random Glucose 153 H Calcium 9.3 Discharge Plan Discharge Anticipated Discharge Date/Time: 08/31/24 08:33 Patient Disposition: Xfer [facility] Discharge Diagnosis: lisandra Referrals: [facility] [Other] - 1 Week Physician,None [Physician] - 1 Week Discharge Medications: Continued allopurinol 100 mg tablet 200 mg PO DAILY Qty: 180 1RF Eliquis 5 mg Tablet 5 mg PO BID Qty: 60 0RF Enbrel SureClick 50 mg/mL (1 mL) pen injector 50 mg subcut FR sennosides [senna] 8.6 mg Tablet 8.6 mg PO DAILY PRN (Reason: Constipation) acetaminophen 325 mg Tablet 650 mg PO Q6H PRN (Reason: Fever Or Pain) loperamide 2 mg Tablet 2 mg PO Q4H PRN (Reason: Loose Stool) Rx Instructions: administer after each loose stool until symptoms controlled; do not exceed 8 mg per 24 hrs bupropion HCl 100 mg Tablet 100 mg PO BID insulin glargine [Lantus Solostar U-100 Insulin] 100 unit/mL (3 mL) insulin pen 28 unit subcut BEDTIME insulin lispro 100 unit/mL Insulin Pen See Protocol SUBCUT BIDAC Protocol: Insulin Correction Scale Less than or equal to 110 ---- Give (units): 0 111 to 150 Give (units): 0 151 to 200 Give (units): 0 201 to 250 Give (units): 2 251 to 300 Give (units): 4 301 to 350 Give (units): 6 Greater than 350 Give (units): 8 Call MD if Blood Glucose > : 400 Rx Instructions: before breakfast and dinner magnesium hydroxide 400 mg/5 mL Suspension 30 ml PO DAILY PRN (Reason: Constipation) bisacodyl 10 mg Suppository 10 mg SC DAILY PRN (Reason: Constipation) Fleet Enema 19-7 gram/118 mL Enema 118 ml SC DAILY PRN (Reason: Constipation) Acidophilus Capsule 10 mg PO DAILY amlodipine 10 mg tablet 10 mg PO DAILY atorvastatin 20 mg tablet 20 mg PO DAILY furosemide 40 mg tablet 40 mg PO DAILY metoprolol tartrate 50 mg tablet 50 mg PO BID sertraline 25 mg tablet 25 mg PO DAILY (DME) FreeStyle Car 2 Sensor Kit See Rx Instructions .Route Rx Instructions: As directed Discharge Orders: Discharge Order (Routine); Ordered 08/31/24 Ordered By: Kimani Warren Diet: Advance to usual diet Activity on Discharge: As tolerated Stand Alone Forms: Patient Portal Discharge page Print Language: Sami Care Plan Goals: recovery Health Concerns: falls, lisandra Plan of Treatment: rehab, avoid falls Assessment: see above
[2024-08-31] MEDS: buPROPion HCL 100 MG TABLET PO ×2 (09:12→21:30)
--- NOTE | 2024-08-31 09:43 | MHC.CM.PN ---
pt from [facility] where he will return will need a new auth
--- NOTE | 2024-08-31 09:44 | P.PNIM_ITS ---
Subjective Subjective Date of Service: 08/31/24 Interval History: tremor Physical Exam 2 Vital Signs: Vital Signs: Last Vital Signs Temp 97.6 F 08/31/24 07:24 Pulse 80 08/31/24 07:48 Resp 16 08/31/24 07:24 BP 140/72 H 08/31/24 07:48 Pulse Ox 95 08/31/24 07:24 O2 Del Method Room Air 08/31/24 07:24 BMI result Body Mass Index 25.5 General: AO X 3, no acute distress Resp: CTA bilateral, no accessory muscles used CVS: S1,S2,RRR GI: soft, non tender, non distended Neuro: motor grossly intact, alert, tremor Psych: appropriate affect, appropriate insight Objective Data Active Medications Acetaminophen (Acetaminophen 325 Mg Tablet) 975 mg PO Q6H PRN PRN Reason: Pain, Mild 1-3,fever,headache Allopurinol (Allopurinol 100 Mg Tablet) 200 mg PO DAILY [facility] Last Admin: 08/31/24 07:49 Dose: 200 mg Documented By: SUNDAY Amlodipine Besylate (Amlodipine Besylate 10 Mg Tablet) 10 mg PO DAILY [facility]; Protocol Last Admin: 08/31/24 07:49 Dose: 10 mg Documented By: SUNDAY Apixaban (Apixaban 5 Mg Tablet) 5 mg PO BID [facility] Last Admin: 08/31/24 07:48 Dose: 5 mg Documented By: SUNDAY Atorvastatin Calcium (Atorvastatin Calcium 20 Mg Tablet) 20 mg PO DAILY [facility] Last Admin: 08/31/24 07:49 Dose: 20 mg Documented By: SUNDAY Bupropion HCl (Bupropion Hcl 100 Mg Tablet) 100 mg PO BID [facility] Last Admin: 08/31/24 09:12 Dose: 100 mg Documented By: SUNDAY Calcium Carbonate (Calcium Carbonate 750 Mg Tab.Chew) 750 mg PO Q4H PRN PRN Reason: Heartburn Dextrose (Dextrose 50 % 25 Gm/50 Ml Syringe) 25 gm IVPUSH Q15M PRN; Protocol PRN Reason: per Hypoglycemia Standing Ord. Glucose (Glucose Gel 15 Gm Gel..Gram.) 15 gm PO Q15M PRN; Protocol PRN Reason: per Hypoglycemia Standing Ord. Hydromorphone HCl (Hydromorphone Hcl 1 Mg/Ml Syringe) 0.25 mg IVPUSH Q4H PRN; Protocol PRN Reason: Pain, Severe (Pain Scale 7-10) Insulin Glargine (Insulin Glargine,Hum.Rec.Anlog 100 Unit/Ml 10 Ml Vial) 28 unit SUBCUT BEDTIME [facility] Insulin Human Lispro (Insulin Lispro 100 Unit/Ml 3 Ml Vial) 0 unit SUBCUT QIDACHS [facility]; Protocol Last Admin: 08/31/24 07:47 Dose: 2 unit Documented By: SUNDAY Magnesium Hydroxide (Milk Of Magnesia 30 Ml Oral.Susp) 30 ml PO DAILY PRN PRN Reason: Constipation Melatonin (Melatonin 3 Mg Tablet) 6 mg PO BEDTIME PRN PRN Reason: Insomnia Metoprolol Tartrate (Metoprolol Tartrate 50 Mg Tablet) 50 mg PO BID [facility]; Protocol Last Admin: 08/31/24 07:48 Dose: 50 mg Documented By: SUDNAY Ondansetron HCl (Ondansetron Hcl 4 Mg/2 Ml Vial) 4 mg IVPUSH Q8H PRN PRN Reason: Nausea and Vomiting Oxycodone HCl (Oxycodone Hcl Immed Release 5 Mg Tablet) 5 mg PO Q6H PRN PRN Reason: Pain, Moderate(Pain Scale 4-6) Sertraline HCl (Sertraline Hcl 25 Mg Tablet) 25 mg PO DAILY [facility] Last Admin: 08/31/24 07:47 Dose: 25 mg Documented By: SUNDAY Sodium Chloride (0.9 % Sodium Chloride Flush 3 Ml Syringe) 3 ml IVFLUSH QSHIFT [facility] Last Admin: 08/31/24 07:49 Dose: 3 ml Documented By: SUNDAY Labs 08/31/24 07:01 08/31/24 07:01 Labs: Laboratory Results - last 24 hr 08/30/24 08/30/24 08/30/24 12:21 17:28 21:10 MCV MCH MCHC RDW Plt Count MPV Absolute Nucleated RBC Nucleated RBC % (auto) Anion Gap Estim Creat Clear Calc Estimated GFR POC Glucose 217 H 197 H 241 H Random Glucose Calcium 08/31/24 08/31/24 08/31/24 07:01 07:01 07:01 MCV 78.8 L 79.4 L MCH 24.4 L 24.4 L MCHC 31.0 RDW Plt Count MPV Absolute Nucleated RBC Nucleated RBC % (auto) Anion Gap Estim Creat Clear Calc Estimated GFR POC Glucose Random Glucose Calcium 08/31/24 08/31/24 08/31/24 07:01 07:01 07:01 MCV MCH MCHC 30.8 L RDW 18.5 H 18.5 H Plt Count 249 237 MPV 9.9 Absolute Nucleated RBC Nucleated RBC % (auto) Anion Gap Estim Creat Clear Calc Estimated GFR POC Glucose Random Glucose Calcium 08/31/24 08/31/24 08/31/24 07:01 07:01 07:01 MCV MCH MCHC RDW Plt Count MPV 9.8 Absolute Nucleated RBC 0.000 0.000 Nucleated RBC % (auto) 0.0 0.0 Anion Gap 13 Estim Creat Clear Calc 48.2 Estimated GFR 57 POC Glucose Random Glucose 153 H Calcium 9.3 08/31/24 07:29 MCV MCH MCHC RDW Plt Count MPV Absolute Nucleated RBC Nucleated RBC % (auto) Anion Gap Estim Creat Clear Calc Estimated GFR POC Glucose 154 H Random Glucose Calcium Assessment and Plan (1) Cardiomegaly: Status: Acute Plan 79M PMH kvng, pvd, htn, psoriatic arthritis, unspecified dementia, mood disorder, DM, pafib, presented with frequent falls, lisandra lisandra resolved with iv fluids falls likely related to progression of tremor, frailty eventual return to [facility] dm insulin psoriatic arthritis follows with rheum denies flare unspecified dementia stable pafib eliquis dvt prophylaxi s- eliquis full code reason for continued hospitalization:pt eval Quality Stroke Does the patient have a stroke diagnosis?: No VTE Prior VTE?: No VTE Risk Level:: Medical - moderate - high VTE Device Contraindication: Treatment Not Indicated VTE Drug Contraindication: N/A - Med Ordered
--- NOTE | 2024-08-31 10:10 | HO.WOUND ---
Wound Consult: Initial 79yr old?[place] [facility] [place] - See progress notes and H&P for detailed history.? Wound consult placed for Perineal area.? Patient agreeable to assessment and photo documentation.? Perineal and buttock Etiology: ??MASD -IAD Present on Admission Wound Bed: red pink blanchable tissue with scattered open area along perianal area Drainage / Odor: none noted Edges: ? attached Nguyen wound: ?intact No Induration, Fluctuance or Warmth noted Pain: denies Goals of Treatment: ? barrier cream to protect from moisture and friction Left side of nose assessed for small abrasion - patient reports he sat on his glasses and since then the nose piece pokes into his skin. Recommend follow up outpt to have glasses fixed in mean time protect with bandaid application prior to wearing glasses. Recommendations: 1. Turn and Reposition every 2 hours and as needed for patient comfort.? Use pillows or wedges to support off loading positions. 2. Off Load all bony prominences with use of pillows and heel boots if needed.? Apply Preventative foams where needed. ? 3. Monitor for incontinence and moisture control, use barrier creams when needed for prevention and treatment. 4. Provide adequate and supplemental nutrition.? 5. Order or Continue low air loss mattress. 6. When applicable maintain blood glucose levels per Providers order. Left Nose - Cleanse with NS moist gauze pat dry. Apply skin prep to are avoid eyes. Cover with bandaid prior to wearing glasses that are digging into patient skin. Scrotum and Buttock - Off Load Pressure with Q2 hr turns and use of pillows - Cleanse with PH balance spray or wipes, pat dry. ?Apply thin layer of barrier cream to affected area.? Apply twice daily and Reapply thin layer PRN after each episode of incontinence. Re-consult wound care Nurse for wound deterioration or wound changes.
[2024-08-31 11:20] LABS: Glucose, Whole Blood 238 mg/dL (60-115)
[2024-08-31 16:01] LABS: Glucose, Whole Blood 141 mg/dL (60-115)
[2024-08-31 20:11] LABS: Glucose, Whole Blood 251 mg/dL (60-115)
[2024-08-31] MEDS: Insulin Glargine,Hum.rec.anlog 100 UNIT/ML 10 ML VIAL 28 UNIT SUBCUT (21:30)
[2024-09-01 03:21] VITALS: BP 146/66; PULSE 59; RESP 16; TEMP 36; O2SAT 93
[2024-09-01 06:16] LABS: Hematocrit 39.9 % (42.0-52.0); Hemoglobin 12.2 g/dl (14.0-18.0); Mean Corpuscular HGB Conc 30.6 g/dl (31.0-36.0); Mean Corpuscular Hemoglobin 24.1 pg (27.0-33.0); Mean Corpuscular Volume 78.9 fL (80.0-98.0); Mean Platelet Volume 10.5 fL (9.4-12.4); Platelet Count 273 X10*3/uL (160-400); Red Blood Count 5.06 X10*6/uL (4.60-5.80); Red Cell Distribution Width 18.5 % (11.0-16.0); White Blood Count 9.9 X10*3/uL (4.8-10.8)
[2024-09-01 06:25] LABS: Anion Gap 13 (12-20); Blood Urea Nitrogen 33 mg/dL (9-16); Calcium 9.3 mg/dL (8.4-10.2); Carbon Dioxide 24 mmol/L (22-29); Chloride 107 mmol/L (96-108); Creatinine Clr Calc Pharmacy 48.6; Estimated Glomerular Filt Rate 58; Glucose Random 122 mg/dL (60-115); Potassium 4.6 mmol/L (3.3-5.1); Sodium 139 mmol/L (135-145)
[2024-09-01 07:17] LABS: Glucose, Whole Blood 123 mg/dL (60-115)
[2024-09-01 07:36] VITALS: BP 144/66; PULSE 63; RESP 20; O2SAT 98
[2024-09-01 07:39] VITALS: TEMP 37.1
[2024-09-01] MEDS: Metoprolol Tartrate 50 MG TABLET PO (07:39)
[2024-09-01] MEDS: Apixaban 5 MG TABLET PO (07:39)
[2024-09-01] MEDS: Sertraline HCL 25 MG TABLET PO (07:39)
[2024-09-01] MEDS: Atorvastatin Calcium 20 MG TABLET PO (07:39)
[2024-09-01] MEDS: buPROPion HCL 100 MG TABLET PO (07:40)
[2024-09-01] MEDS: amLODIPine Besylate 10 MG TABLET PO (07:40)
[2024-09-01] MEDS: allopurinoL 100 MG TABLET 200 MG PO (07:40)
[2024-09-01] MEDS: 0.9 % Sodium Chloride Flush 3 ML SYRINGE IVFLUSH (07:40)
--- NOTE | 2024-09-01 09:25 | MHC.CM.PN ---
coby received pt leaving at 12 to [facility] [place] [facility] dgter left message re same
[2024-09-01 11:25] LABS: Glucose, Whole Blood 229 mg/dL (60-115)
[2024-09-01] MEDS: Insulin Lispro 100 UNIT/ML 3 ML VIAL SUBCUT (11:52)
[2024-09-01 12:37] VITALS: BP 137/65; PULSE 59; RESP 20; TEMP 37; O2SAT 96
== END 2024-09-01 13:20 | disposition skilled nursing facility (03) | DRG 684 ==
LOC: HO.ED 20:50 → HO.EDOVER 21:09 → HO.S3 08-30 19:48
PROVIDERS: Physician Assistant Medical; Admitting Provider Physician Assistant; Emergency Provider Emergency Medicine; PCP Internal Medicine; Visit Provider Internal Medicine
DX: N17.9 Acute kidney failure, unspecified (principal); I12.9 Hypertensive chronic kidney disease with stage 1 through stage 4 chronic kidney disease, or unspecified chronic kidney disease; N18.30 Chronic kidney disease, stage 3 unspecified; I48.0 Paroxysmal atrial fibrillation; L40.50 Arthropathic psoriasis, unspecified; R53.81 Other malaise; R25.1 Tremor, unspecified; E11.22 Type 2 diabetes mellitus with diabetic chronic kidney disease; F03.90 Unspecified dementia, unspecified severity, without behavioral disturbance, psychotic disturbance, mood disturbance, and anxiety; R29.6 Repeated falls; Z20.822 Contact with and (suspected) exposure to COVID-19; Z79.4 Long term (current) use of insulin; Z79.01 Long term (current) use of anticoagulants; Z79.899 Other long term (current) drug therapy
CPT/HCPCS: 0241U; 36415; 70450; 71045; 72125; 73564; 80048; 80053; 81001; 82550; 82947; 83735; 83880; 84443; 84484; 85025; 85027; 93005; 97162; 99285

== ENCOUNTER → 2024-08-29 18:10 | Outpatient (BNV) | payer MEDICARE, SELFPAY | PROVIDERS: Emergency Provider Emergency Medicine; Visit Provider Radiology Diagnostic Radiology | DX: M50.30 Other cervical disc degeneration, unspecified cervical region (principal); R90.82 White matter disease, unspecified; M25.761 Osteophyte, right knee; R55 Syncope and collapse | CPT/HCPCS: 70450; 71045; 72125; 73564 ==

== ENCOUNTER → 2024-08-29 18:10 | Outpatient (BNV) | payer MEDICARE, SELFPAY | PROVIDERS: Admitting Provider Physician Assistant; Emergency Provider Emergency Medicine; Visit Provider Internal Medicine | DX: R55 Syncope and collapse (principal) | CPT/HCPCS: 93010 ==

== ENCOUNTER → 2024-08-29 20:41 | Outpatient (BNV) | payer MEDICARE, SELFPAY | PROVIDERS: Admitting Provider Physician Assistant; Emergency Provider Emergency Medicine; Visit Provider Internal Medicine | DX: I51.7 Cardiomegaly (principal) | CPT/HCPCS: 99223; 99232; 99239 ==

== ENCOUNTER 2024-09-17 16:03 | Emergency (ER) | payer MEDICARE, SELFPAY ==
--- NOTE | ~2024-09-17 | XR_ITS ---
CLINICAL HISTORY: Shortness a breath Chest Radiograph Comparison: CR - XR CHEST 1V - 08/29/24 20:46 EDT CR/SR - XR CHEST 1V - 05/04/22 08:35 EST CR/SR - XR CHEST 1V - 05/02/22 06:25 EST Findings: No cardiomegaly. Normal mediastinal contours. No pneumothorax. No opacity. No pleural effusion. Normal upper abdomen. No acute fracture. Right ventriculoperitoneal shunt catheter. The visualized portion of the catheter is intact. Impression: No acute findings. This document has been electronically signed by: Blanca Page MD on 09/17/2024 18:02:56
[2024-09-17 16:12] VITALS: BP 136/65; PULSE 63; RESP 16; TEMP 36.7; O2SAT 94
[2024-09-17 16:30] VITALS: BP 120/60; BP 140/80; PULSE 62; PULSE 65; RESP 18; TEMP 37.1; O2SAT 90; O2SAT 91
[2024-09-17 16:39] VITALS: PULSE 65; RESP 18; TEMP 37.1; O2SAT 91; BMI 26.5
--- NOTE | 2024-09-17 17:00 | ECG_ITS ---
Test Reason : WEAKNESS/AMS Blood Pressure : */* mmHG Vent. Rate : 68 BPM Atrial Rate : 68 BPM P-R Int : 168 ms QRS Dur : 78 ms QT Int : 408 ms P-R-T Axes : 30 26 55 degrees QTcB Int : 433 ms Normal sinus rhythm Normal ECG When compared with ECG of 29-Aug-2024 18:40, No significant change was found Referred By: Brennan Vincent Electronically Signed By: JULIO BALL
[2024-09-17 17:20] LABS: MANUAL DIFF FLAG NO
[2024-09-17 17:21] LABS: Basophils Percent Auto 0.3 % (0-2); Eosinophils Absolute Auto 0.1 X10*3/uL (0.0-0.4); Eosinophils Percent Auto 1.2 % (0-4); Hematocrit 42.1 % (42.0-52.0); Hemoglobin 13.2 g/dl (14.0-18.0); Imm Gran Abs Auto 0.03 X10*3/uL (0.00-0.03); Imm Gran Pct Auto 0.3 % (0.0-0.4); Lymphocytes Absolute Auto 0.9 X10*3/uL (1.2-4.9); Lymphocytes Percent Auto 9.2 % (20-40); Mean Corpuscular HGB Conc 31.4 g/dl (31.0-36.0); Mean Corpuscular Hemoglobin 24.9 pg (27.0-33.0); Mean Corpuscular Volume 79.3 fL (80.0-98.0); Mean Platelet Volume 9.9 fL (9.4-12.4); Monocytes Absolute Auto 0.9 X10*3/uL (0.1-1.2); Monocytes Percent Auto 8.6 % (2-11); Neutrophils Absolute Auto 8.1 x10*3/uL (2.0-8.3); Neutrophils Percent Auto 80.4 % (45-73); Platelet Count 264 X10*3/uL (160-400); Red Blood Count 5.31 X10*6/uL (4.60-5.80); Red Cell Distribution Width 19.8 % (11.0-16.0)
[2024-09-17 17:29] LABS: INTERNATIONAL NORM RATIO 1.4 (0.9-1.1); Prothrombin Time 16.6 SEC (10.9-12.4)
[2024-09-17 17:31] LABS: Partial Thromboplastin Time 41.1 SEC (26.0-36.8)
[2024-09-17 17:34] LABS: Alanine Aminotransferase 43 U/L (0-40); Albumin Level 3.8 g/dL (3.5-5.0); Alkaline Phosphatase 158 U/L (39-117); Anion Gap 14 (12-20); Aspartate Amino Transferase 25 U/L (5-37); Bilirubin Total 0.3 mg/dL (0.0-1.0); Blood Urea Nitrogen 32 mg/dL (9-16); Calcium 8.9 mg/dL (8.4-10.2); Carbon Dioxide 24 mmol/L (22-29); Chloride 102 mmol/L (96-108); Creatinine Clr Calc Pharmacy 39.8; Estimated Glomerular Filt Rate 48; Glucose Random 265 mg/dL (60-115); Potassium 4.7 mmol/L (3.3-5.1); Sodium 135 mmol/L (135-145); Total Protein 7.5 g/dL (6.5-8.0)
[2024-09-17 17:41] LABS: Troponin-I High Sensitivity < 2.7 ng/L (<3.5-35.0)
--- NOTE | 2024-09-17 17:41 | ED.GENADULT ---
HPI - General Adult General Chief complaint: Weakness Stated complaint: ams,weak Time Seen by Provider: 09/17/24 16:41 Source: patient and family Mode of arrival: EMS Limitations: no limitations History of Present Illness ED Provider: HPI narrative: Patient is 79 years old with history of diabetes atrial fibrillation psoriasis gout musculoskeletal weakness was just discharged from the rehab after 2 weeks of stay for weakness patient went home and daughter went for shopping patient went to the bathroom patient was unable to get up from the toilet seat because of weakness family unable to take care of the patient Related Data Home Medications ?Medication ?Instructions ?Recorded ?Confirmed amlodipine 10 mg tablet 10 mg PO DAILY 11/22/21 09/18/24 atorvastatin 20 mg tablet 20 mg PO DAILY 11/22/21 09/18/24 furosemide 40 mg tablet 40 mg PO DAILY 11/22/21 09/18/24 metoprolol tartrate 50 mg tablet 50 mg PO BID 11/22/21 09/18/24 acetaminophen 325 mg tablet 650 mg PO Q6H PRN Fever Or Pain 08/24/22 09/18/24 bupropion HCl 100 mg tablet 100 mg PO BID 08/24/22 09/18/24 insulin glargine 100 unit/mL (3 28 unit subcut BEDTIME 08/24/22 09/18/24 mL) subcutaneous pen (Lantus Solostar U-100 Insulin) loperamide 2 mg tablet 2 mg PO Q4H PRN Loose Stool 08/24/22 09/18/24 sennosides 8.6 mg tablet (senna) 8.6 mg PO DAILY PRN Constipation 08/24/22 09/18/24 flash glucose sensor (FreeStyle 10/23/23 Car 2 Sensor kit) sertraline 25 mg tablet 25 mg PO DAILY 10/23/23 09/18/24 etanercept 50 mg/mL (1 mL) 50 mg subcut FR 08/20/24 09/18/24 subcutaneous pen injector (Enbrel SureClick) Lactobacillus acidophilus 10 mg PO DAILY 08/30/24 09/18/24 (Acidophilus capsule) bisacodyl 10 mg rectal suppository 10 mg OR DAILY PRN Constipation 08/30/24 09/18/24 insulin lispro 100 unit/mL See Protocol subcut BIDAC 08/30/24 09/18/24 subcutaneous pen magnesium hydroxide 400 mg/5 mL 30 ml PO DAILY PRN Constipation 08/30/24 09/18/24 oral suspension sodium phosphates 19 gram-7 118 ml OR DAILY PRN Constipation 08/30/24 09/18/24 gram/118 mL enema (Fleet Enema) dextrose 40 % oral gel (Glucose 15 g PO Q15M PRN Hypoglycemia 09/18/24 09/18/24 Gel) glucagon 1 mg solution for 1 mg subcut Q10M PRN Hypoglycemia 09/18/24 09/18/24 injection Previous Rx's ?Medication ?Instructions ?Recorded apixaban 5 mg tablet (Eliquis) 5 mg PO BID #60 tabs 08/06/22 allopurinol 100 mg tablet 200 mg (2 x 100 mg) PO DAILY #180 07/08/24 tabs Allergies Allergy/AdvReac Type Severity Reaction Status Date / Time famotidine (From Pepcid) Allergy Intermediate Hallucinati Verified 09/17/24 16:54 ons Review of Systems Review of Systems: Yes all other systems are reviewed and are negative [facility] Past Medical History Medical History Chronic kidney disease, stage 3 unspecified Gout Leukocytosis Paroxysmal atrial flutter Gallstones Abnormal LFTs Paroxysmal atrial fibrillation Cardiomegaly Protein malnutrition Immunosuppression due to drug therapy New onset a-fib 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, 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, 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 Back pain Screening-pulmonary TB Encounter for screening for other viral diseases ADHD Hypertension Psoriatic arthritis Obstructive sleep apnea Normal pressure hydrocephalus Restless leg syndrome Diabetic retinopathy Psoriasis Diabetes Surgical History H/O umbilical hernia repair History of cholecystectomy (07/26/22) Family History Family History Father Myocardial infarct Diabetes Mother Arthritis Social History Social History Household Members: Other Household Members Other:: [facility] Housing: [facility] Do you presently have visiting nurse or other home services: No Alcohol intake: never Patient Tobacco Use Status: Never used Tobacco Smoked in Last 30 Days: No e-Cigarette/Vaping Use: Never Used Advance Directives: Yes Advance Directives on File: Yes Advance Directives Date on File: 08/07/22 Do you have a plan to hurt others: No Plan service: No 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 occupational status: 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 Physical Exam ED Vital Signs: Vital Signs - 24 hr 09/17/24 16:12 09/17/24 16:30 09/17/24 16:39 Temperature 98.0 F 98.8 F 98.8 F Pulse Rate 63 65 65 Respiratory Rate 16 18 18 Blood Pressure 136/65 120/60 Pulse Oximetry 94 90 L 91 L Oxygen Delivery Method Room Air Room Air Room Air Oxygen Flow Rate 09/17/24 19:24 09/17/24 23:37 09/18/24 06:00 Temperature 97.1 F 97.6 F Pulse Rate 76 76 68 Respiratory Rate 14 16 18 Blood Pressure 144/71 H 137/70 141/78 H Pulse Oximetry 91 L 95 93 Oxygen Delivery Method Nasal Cannula Nasal Cannula Nasal Cannula Oxygen Flow Rate 2 2 2 09/18/24 06:06 09/18/24 08:43 Temperature 97.0 F Pulse Rate 76 76 Respiratory Rate 18 Blood Pressure 132/73 132/73 Pulse Oximetry 98 98 Oxygen Delivery Method Nasal Cannula Oxygen Flow Rate 2 BMI result Body Mass Index 26.5 Appearance: Alert. Oriented X3. No acute distress. Eyes: PERRLA, No Nystagmus ENT: Pharynx normal. Oral Mucosa moist Neck: Normal inspection. Neck supple. CVS: Normal heart rate and rhythm. Pulses normal. Respiratory: No respiratory distress. Equal air entry bilateral, no wheezing/rales/rhonchi Abdomen: Soft and nontender. Bowel sounds are present, no mass palpable, no CVA tenderness Skin: Skin warm and dry. Normal skin color. Normal skin turgor. Extremities: No lower extremity edema. No calf tenderness Neuro: Oriented X 3. No motor deficit. No sensory deficit.No cerebellar signs , cranial nerves II-XII intact Decreased muscle mass Course Reevaluation(s) Reevaluation #1: Physician observation continued, no overnight events reported by nursing. VSS. Awaiting PT eval. CM following. Time: 08:15 Reevaluation #2: Observation care revealed that patient does not meet medical necessity for hospitalization. Final disposition discussed with patient. The patient completed observation care at 1530 on 09/18/24. Patient going to [facility] for STR. Time: 13:06 Medical Decision Making Medical Decision Making [facility] Narrative: Patient with multiple comorbid condition with increased weakness unable to function at home daughter unable to take care of him just discharge from the rehab will get case management involved for long-term placement Lab Data [facility] Lab Attestation statement: I reviewed the patient's lab results. 09/17/24 17:14 09/17/24 17:14 Labs: Lab Results 09/17/24 09/18/24 Range/Units 17:14 10:55 WBC 10.0 (4.8-10.8) X10*3/uL RBC 5.31 (4.60-5.80) X10*6/uL Hgb 13.2 L (14.0-18.0) g/dl Hct 42.1 (42.0-52.0) % MCV 79.3 L (80.0-98.0) fL MCH 24.9 L (27.0-33.0) pg MCHC 31.4 (31.0-36.0) g/dl RDW 19.8 H (11.0-16.0) % Plt Count 264 (160-400) X10*3/uL MPV 9.9 (9.4-12.4) fL Immature Gran % (Auto) 0.3 (0.0-0.4) % Neut % (Auto) 80.4 H (45-73) % Lymph % (Auto) 9.2 L (20-40) % [place] % (Auto) 8.6 (2-11) % Eos % (Auto) 1.2 (0-4) % Baso % (Auto) 0.3 (0-2) % Lymph # (Auto) 0.9 L (1.2-4.9) X10*3/uL [place] # (Auto) 0.9 (0.1-1.2) X10*3/uL Eos # (Auto) 0.1 (0.0-0.4) X10*3/uL Baso # (Auto) 0.0 (0.0-0.2) X10*3/uL Abs Immat Gran (auto) 0.03 (0.00-0.03) X10*3/uL Absolute Neuts (auto) 8.1 (2.0-8.3) x10*3/uL Absolute Nucleated RBC 0.000 (0.0-0.012) X10*3/uL Nucleated RBC % (auto) 0.0 (0.0-0.2) /100WBC PT 16.6 H (10.9-12.4) SEC INR 1.4 H (0.9-1.1) APTT 41.1 H (26.0-36.8) SEC Sodium 135 (135-145) mmol/L Potassium 4.7 (3.3-5.1) mmol/L Chloride 102 (96-108) mmol/L Carbon Dioxide 24 (22-29) mmol/L Anion Gap 14 (12-20) BUN 32 H (9-16) mg/dL Creatinine 1.43 H (0.5-1.4) mg/dL Estim Creat Clear Calc 39.8 Estimated GFR 48 Random Glucose 265 H (60-115) mg/dL Calcium 8.9 (8.4-10.2) mg/dL Total Bilirubin 0.3 (0.0-1.0) mg/dL AST 25 (5-37) U/L ALT 43 H (0-40) U/L Alkaline Phosphatase 158 H (39-117) U/L Troponin I High Sens < 2.7 (<3.5-35.0) ng/L Total Protein 7.5 (6.5-8.0) g/dL Albumin 3.8 (3.5-5.0) g/dL Influenza Type A (PCR) NEGATIVE (Negative) Influenza Type B (PCR) NEGATIVE (Negative) RSV RNA Qual (PCR) NEGATIVE (Negative) SARS-CoV-2 RNA (RT-PCR) NEGATIVE (Negative) Discharge Plan Discharge Clinical Impression: Weakness Patient Disposition: Xfer Inpatient Rehab Fac Transfer Details: to [facility] Prescriptions: No Action allopurinol 100 mg tablet 200 mg PO DAILY Qty: 180 1RF Eliquis 5 mg Tablet 5 mg PO BID Qty: 60 0RF Enbrel SureClick 50 mg/mL (1 mL) pen injector 50 mg subcut FR sennosides [senna] 8.6 mg Tablet 8.6 mg PO DAILY PRN (Reason: Constipation) acetaminophen 325 mg Tablet 650 mg PO Q6H PRN (Reason: Fever Or Pain) loperamide 2 mg Tablet 2 mg PO Q4H PRN (Reason: Loose Stool) Rx Instructions: administer after each loose stool until symptoms controlled; do not exceed 8 mg per 24 hrs bupropion HCl 100 mg Tablet 100 mg PO BID insulin glargine [Lantus Solostar U-100 Insulin] 100 unit/mL (3 mL) insulin pen 28 unit subcut BEDTIME insulin lispro 100 unit/mL Insulin Pen See Protocol SUBCUT BIDAC Protocol: Insulin Correction Scale Less than or equal to 110 ---- Give (units): 0 111 to 150 Give (units): 0 151 to 200 Give (units): 0 201 to 250 Give (units): 2 251 to 300 Give (units): 4 301 to 350 Give (units): 6 Greater than 350 Give (units): 8 Call MD if Blood Glucose > : 400 Rx Instructions: before breakfast and dinner magnesium hydroxide 400 mg/5 mL Suspension 30 ml PO DAILY PRN (Reason: Constipation) bisacodyl 10 mg Suppository 10 mg OR DAILY PRN (Reason: Constipation) Fleet Enema 19-7 gram/118 mL Enema 118 ml OR DAILY PRN (Reason: Constipation) Acidophilus Capsule 10 mg PO DAILY dextrose [Glucose Gel] 40 % Gel 15 g PO Q15M PRN (Reason: Hypoglycemia) Rx Instructions: until symptoms of low blood sugar are controlled glucagon 1 mg Recon Soln 1 mg SUBCUT Q10M PRN (Reason: Hypoglycemia) Rx Instructions: until target blood sugar attained amlodipine 10 mg tablet 10 mg PO DAILY atorvastatin 20 mg tablet 20 mg PO DAILY furosemide 40 mg tablet 40 mg PO DAILY metoprolol tartrate 50 mg tablet 50 mg PO BID sertraline 25 mg tablet 25 mg PO DAILY (DME) FreeStyle Car 2 Sensor Kit See Rx Instructions .Route Rx Instructions: As directed Referrals: [facility] [Other] Print Language: Arabic
--- NOTE | 2024-09-17 17:46 | MHC.CM.ED ---
Addendum entered by Ayesha Fernandez 09/17/24 20:25: Attempted to call daughter Belen , mailbox is full and CM is unable to leave a message. Addendum entered by Ayesha Fernandez 09/17/24 18:16: CXR negative. Medical workup negative. Provider to order PT evaluation. Pt agreeable to additional STR. CM attempted to call HCP/daughter Belen, but the mailbox was full and CM unable to leave a message. Pt was discharged from [facility] with [facility] for SN, PT, OT. Original Note: CM met with patient to discuss discharge planning. CXR and labs are pending. Pt was inpatient at [facility] 08/29-09/01 and discharged to [facility]. Pt was discharged to home today. States he did not feel ready to go home yet. C/O weakness. States had a slow fall today at home and could not get up. Used his life alert. Pt lives alone. Uses a rollator. 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 Daughter has groceries delivered. States he does some cooking. Pt is agreeable to additional rehab if needed. [facility] HCP on file. MOLST -full code. PCP verified. CM will follow for discharge planning.
[2024-09-17 19:24] VITALS: BP 144/71; PULSE 76; RESP 14; TEMP 36.2; O2SAT 91
--- OUTSIDE RECORDS SUMMARY | 2024-09-17 19:46 | XMS_ITS | Encounter Summary ---
Author Organization [facility] [place] [address] Care Team Providers Care Plastic Tile Setter Name Role Phone Jesenia Bynum MD Primary Care Provider [phone] Encounter Details Date Type Department Care Team (Late st Contact Info) Description 08/31/2024 Telephone [facility] [place] [facility] [id number] [place] [address] Lorenza Ash PA [address] [place] [address] Social History Tobacco Use Types Packs/Day Years Used Date Smoking Tobacco: Never Smokeless Tobacco: Never Alcohol Use Standard Drinks/Week Comments Not Asked 0 (1 standard drink = 0.6 oz pur e alcohol) Housing Instability Answer Date Recorde d Are you worried that in the next 2 months you may not have stable housing? No 06/10/2024 Food Access & Nutrition Answer Date Rec orded Do you have access to a vari ety of food including fruits and vegetables? Yes 06/10/2024 Access to Healthcare Answer Date Record ed Within the last 3 months, ho w many times did you visit the emergency department for your medical care? 1 06/10/2024 Health Literacy Answer Date Recorded How often do you need to hav e someone help you when you read instructions, pamphlets, or other written material from your doctor or pharmacy? Often 06/10/2024 Caregiver: How often do you need to have someone help you when you read instructions, pamphlets, or other written material from your doctor or pharmacy? Not on file 06/10/2024 Financial Risk Answer Date Recorded How hard is it for you to pa y for the very basics like food, housing, medical care, and air conditioning / heating? Somewhat hard 06/10/2024 Transportation Answer Date Recorded Has the lack of transportati on kept you from meetings, work, or from getting things needed for daily living? No 2024 Has the lack of transportati on kept you from medical appointments or from getting medications? Not asked 06/10/2024 Social Isolation Answer Date Recorded How often do you feel lonely or isolated from those around you? Sometimes 06/10/2024 Food Risk Answer Date Recorded Within the past 12 months we worried whether our food would run out before we got money to buy more. Never true 06/10/2024 Within the past 12 months th e food we bought just didn't last and we didn't have money to get more. Never true 06/10/2024 Dependent Care Answer Date Recorded Do you need help finding or paying for care for your loved ones. For example, child development director or elderly care for an older adult? No 06/10/2024 Education Answer Date Recorded Do you think completing more education or training, like finishing a GED, going to college, or learning a trade, would be helpful for you? No 06/10/2024 Employment and Income Answer Date Recor ded During the last four weeks, have you been actively looking for work? No 06/10/2024 Living Situation Answer Date Recorded What is your living situation? 0 06/10/2024 Sex and Gender Information Value Date Recorded Sex Assigned at Not on file Legal Sex Male 1:05 AM EST Gender Identity Not on file Sexual Orientation Not on file documented as of this encounter Progress Notes * Breana Leos - 08/31/2024 10:11 AM EDT Left vm on both phones to call back and book follow up appt documented in this encounter Plan of Treatment Upcoming Encounters Date Type Department Care Team (Late st Contact Info) Description 09/29/2024 10:30 AM EDT Office Visit [facility] [address] [phone] Jesenia Bynum MD [address] [place], [place] 11/17/2024 10:45 AM EDT Office Visit Endocrinology - [address] [phone] Lorenza Ash PA [address] [place] [address] documented as of this encounter Visit Diagnoses Not on filedocumented in this encounter Additional Health Concerns Assessment Noted Time PHQ-9 Depression Total Score: 6 06/11/19 25 4:35 PM EDT documented as of this encounter Care Teams Plastic Tile Setter Relationship Specialty Start Date End Date Jesenia Bynum MD [address] [place] [address] PCP - General 02/12/00 documented as of this encounter
--- NOTE | 2024-09-17 22:14 | MHC.CM.ED ---
CM received telephone call from daughter Gris ([phone]) requesting update regarding her father's plan of care. CM explained that we have been calling her sister Belen, who is HCP #1 without success. Her mailbox is full. Gris requests that CM call her, Gris tells CM that the last time her father was in rehab, he went home and fell and had to return, and then he was fine. Gris verified my previous conversation with her father regarding his care at home. 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 Gris is concerned that if her father continues to fall, he will need LTC. The house is in a life trust, he has social security and less than $2000 in the bank. CM suggested that she begin the process for MH, so if he needs LTC, he will have a payor source. Daughter does not want referral to financial services at this time. Dr. Vincent is aware that the ED H&P and PT order are needed.
--- NOTE | 2024-09-17 23:35 | PC.NURSE ---
assumed care of pt at this time. pt reports he is in the basement of [email or web address], attempted to redirect however states you can call it what you want but this is the mall. pt is oriented to self. purewick placed for incontinence. vss. call ramirez within reach.
[2024-09-17 23:37] VITALS: BP 137/70; PULSE 76; RESP 16; TEMP 36.4; O2SAT 95
[2024-09-18 06:00] VITALS: BP 141/78; PULSE 68; RESP 18; O2SAT 93
[2024-09-18 06:06] VITALS: BP 132/73; PULSE 76; RESP 18; TEMP 36.1; O2SAT 98
--- NOTE | 2024-09-18 07:29 | PC.NURSE ---
Care of Pt assumed at change of shift. Pt observed resting quietly with eyes closed. Pt wakes for breakfast. NAD noted at this time.
[2024-09-18 08:43] VITALS: BP 132/73; PULSE 76; O2SAT 98
--- NOTE | 2024-09-18 10:58 | MHC.CM.ED ---
Addendum entered by Elizabeth Mcwilliams 09/18/24 12:32: Patient had cpap in the past. However he didn't use it and now no longer has one. Original Note: Patient remains in ER. Physical therapy eval completed. Short term rehab is recommended. Met with patient in regards to d/c planning. [facility]. [facility] is patient's 1st choice. Patient's daughters Gris and Belen made aware. [facility] is in the process of obtaining ins auth. Continue to monitor for d/c needs.
[2024-09-18 11:38] LABS: Influenza A PCR NEGATIVE (Negative); Influenza B PCR NEGATIVE (Negative); Resp Syncy Virus RNA Qual PCR NEGATIVE (Negative); SARS COV2 PCR INHOUSE NEGATIVE (Negative)
--- NOTE | 2024-09-18 12:27 | PHA.MEDREC ---
Addendum entered by Diamond Cisneros RPh 09/18/24 14:27: Reviewed by [facility] Original Note: Pharmacy Consult ? Medication Reconciliation Pharmacy has completed the medication reconciliation. Utilized list from [facility].
--- NOTE | 2024-09-18 13:10 | MHC.CM.ED ---
Insurance auth has been obtained by [facility]. [facility] booked for 330pm. Patient, daughter Nanda Landry RN and Carli MCHUGH aware. Continue to monitor for d/c needs.
[2024-09-18 14:00] VITALS: BP 130/70; PULSE 77; RESP 16; TEMP 37.1; O2SAT 95
--- NOTE | 2024-09-18 16:13 | PC.NURSE ---
Pt transported to [facility]. This RN provided report to EMS staff transporting Pt. Opportunity for questions given and all questions answered to satisfaction. Care of Pt relinquished to EMS. Pt has left the ED at this time.
[2024-09-18 16:15] VITALS: BP 130/70; PULSE 77; RESP 16; TEMP 37.1; O2SAT 95
[2024-09-18 16:17] VITALS: BP 130/70; PULSE 77; RESP 16; TEMP 37.1; O2SAT 95
== END 2024-09-18 16:16 ==
PROVIDERS: Registered Nurse Emergency; Emergency Provider Internal Medicine; PCP Internal Medicine
DX: R53.1 Weakness (principal); R41.82 Altered mental status, unspecified; R26.2 Difficulty in walking, not elsewhere classified; R19.7 Diarrhea, unspecified; Z79.899 Other long term (current) drug therapy; Z03.818 Encounter for observation for suspected exposure to other biological agents ruled out; Z51.81 Encounter for therapeutic drug level monitoring
CPT/HCPCS: 0241U; 36415; 71045; 80053; 84484; 85025; 85610; 85730; 93005; 97161; 99285

== ENCOUNTER → 2024-09-17 16:59 | Outpatient (BNV) | payer MEDICARE, SELFPAY | PROVIDERS: Emergency Provider Internal Medicine; PCP Internal Medicine; Visit Provider Radiology Diagnostic Radiology | DX: R06.02 Shortness of breath (principal) | CPT/HCPCS: 71045 ==

== ENCOUNTER → 2024-09-17 17:00 | Outpatient (BNV) | payer MEDICARE, SELFPAY | PROVIDERS: Emergency Provider Internal Medicine; PCP Internal Medicine; Visit Provider Internal Medicine | DX: R53.1 Weakness (principal); R41.82 Altered mental status, unspecified | CPT/HCPCS: 93010 ==

== ENCOUNTER 2025-01-12 11:59 | Emergency (ER) | payer MEDICARE, SELFPAY ==
--- NOTE | ~2025-01-12 | US_ITS ---
EXAMINATION: Noninvasive assessment of the bilateral lower extremities without ARTERIAL DUPLEX, ANKLE BRACHIAL INDICES (ABIs), and PULSE VOLUME RECORDINGS (PVRs). CLINICAL INFORMATION: Pain and discoloration. TECHNIQUE: Duplex Doppler techniques with waveform analysis and measurement of velocities in the bilateral common femoral, profunda femoris, superficial femoral, popliteal and tibial arteries were performed. The study was performed only at rest. COMPARISON: None FINDINGS: DIRECT DUPLEX DOPPLER FINDINGS: RIGHT LEG: Common femoral artery: 88 cm/s, phasicity: Biphasic. Profunda femoris artery: 71 cm/s, phasicity: Biphasic. Superficial femoral artery (proximal): 100 cm/s, phasicity: Biphasic. Superficial femoral artery (mid): 207 cm/s, phasicity: Biphasic. Superficial femoral artery (distal): 54 cm/s, phasicity: Biphasic. Popliteal artery: 51 cm/s, phasicity: Biphasic. Posterior tibial artery: 9 cm/s, phasicity: Monophasic and reversal. Peroneal artery: No color Doppler flow. Anterior tibial artery: 28 cm/s, phasicity: Monophasic and reversal Dorsalis pedis artery: 22 cm/s, phasicity:Monophasic. LEFT LEG: Common femoral artery: 117 cm/s, phasicity: Triphasic. Profunda femoris artery: 120 cm/s, phasicity: Triphasic. Superficial femoral artery (proximal): 89 cm/s, phasicity: Triphasic. Superficial femoral artery (mid): 77 cm/s, phasicity: Biphasic. Superficial femoral artery (distal): 72 cm/s, phasicity: Biphasic. Popliteal artery: 68 cm/s, phasicity: Biphasic. Posterior tibial artery: 64 cm/s, phasicity: Biphasic. Peroneal artery: No color Doppler flow. Anterior tibial artery: No color Doppler flow. Dorsalis pedis artery: 23 cm/s, phasicity: Monophasic. 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 Electronically signed by: Ion Hunter MD 01/12/2025 01:40 PM EDT
[2025-01-12 12:09] VITALS: BP 137/63; PULSE 67; RESP 18; TEMP 36.6; O2SAT 97; BMI 25.8
--- NOTE | 2025-01-12 12:18 | ED.GENADULT ---
HPI - General Adult General Chief complaint: General Medical Stated complaint: Discoloration in legs Time Seen by Provider: 01/12/25 14:45 Source: patient, family (daughter), RN notes reviewed and old records reviewed Mode of arrival: wheelchair Limitations: no limitations History of Present Illness ED Provider: Lawrence HPI narrative: 80-year-old male presents for evaluation of discoloration to his legs. He has severe peripheral artery disease, atrial fibrillation on Eliquis. He follows with Dr. Mendoza for vascular surgery He is currently in a nursing facility felt that the patient's legs were more purple and discolored over the last week or so. The seemed to improve in his legs are elevated. The patient has no pain whatsoever He actually had an appointment with Dr. Mendoza's office this morning but missed it because his pain evaluate transportation was late for the appointment. Related Data Home Medications ?Medication ?Instructions ?Recorded ?Confirmed amlodipine 10 mg tablet 10 mg PO DAILY 11/22/21 09/18/24 atorvastatin 20 mg tablet 20 mg PO DAILY 11/22/21 09/18/24 furosemide 40 mg tablet 40 mg PO DAILY 11/22/21 09/18/24 metoprolol tartrate 50 mg tablet 50 mg PO BID 11/22/21 09/18/24 acetaminophen 325 mg tablet 650 mg PO Q6H PRN Fever Or Pain 08/24/22 09/18/24 bupropion HCl 100 mg tablet 100 mg PO BID 08/24/22 09/18/24 insulin glargine 100 unit/mL (3 28 unit subcut BEDTIME 08/24/22 09/18/24 mL) subcutaneous pen (Lantus Solostar U-100 Insulin) loperamide 2 mg tablet 2 mg PO Q4H PRN Loose Stool 08/24/22 09/18/24 sennosides 8.6 mg tablet (senna) 8.6 mg PO DAILY PRN Constipation 08/24/22 09/18/24 flash glucose sensor (FreeStyle 10/23/23 Car 2 Sensor kit) sertraline 25 mg tablet 25 mg PO DAILY 10/23/23 09/18/24 etanercept 50 mg/mL (1 mL) 50 mg subcut FR 08/20/24 09/18/24 subcutaneous pen injector (Enbrel SureClick) Lactobacillus acidophilus 10 mg PO DAILY 08/30/24 09/18/24 (Acidophilus capsule) bisacodyl 10 mg rectal suppository 10 mg ID DAILY PRN Constipation 08/30/24 09/18/24 insulin lispro 100 unit/mL See Protocol subcut BIDAC 08/30/24 09/18/24 subcutaneous pen magnesium hydroxide 400 mg/5 mL 30 ml PO DAILY PRN Constipation 08/30/24 09/18/24 oral suspension sodium phosphates 19 gram-7 118 ml ID DAILY PRN Constipation 08/30/24 09/18/24 gram/118 mL enema (Fleet Enema) dextrose 40 % oral gel (Glucose 15 g PO Q15M PRN Hypoglycemia 09/18/24 09/18/24 Gel) glucagon 1 mg solution for 1 mg subcut Q10M PRN Hypoglycemia 09/18/24 09/18/24 injection Previous Rx's ?Medication ?Instructions ?Recorded apixaban 5 mg tablet (Eliquis) 5 mg PO BID #60 tabs 08/06/22 allopurinol 100 mg tablet 200 mg (2 x 100 mg) PO DAILY #180 07/08/24 tabs Allergies Allergy/AdvReac Type Severity Reaction Status Date / Time famotidine (From Pepcid) Allergy Intermediate Hallucinati Verified 01/12/25 12:10 ons Review of Systems Constitutional: Constitutional: Denies body ache(s), Denies chills, Denies fever(s) and Denies headache(s) Eyes: Eyes: Denies blurry vision ENT: Denies dizziness, Denies dry mouth and Denies headache(s) Cardiovascular: Cardiovascular: Denies chest pain and Denies dyspnea on exertion Respiratory: Respiratory: Denies cough and Denies dyspnea on exertion Gastrointestinal: Gastrointestinal: Denies abdominal pain Musculoskeletal: Musculoskeletal: Denies arthralgias, Denies joint swelling and Denies limited range of motion Integumentary/Breasts: Comments: Discoloration to both feet Neurologic: Denies dizziness and Denies headache(s) [facility] Past Medical History Medical History Chronic kidney disease, stage 3 unspecified Gout Leukocytosis Paroxysmal atrial flutter Gallstones Abnormal LFTs Paroxysmal atrial fibrillation Cardiomegaly Protein malnutrition Immunosuppression due to drug therapy New onset a-fib 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, jail, current use Back pain Screening-pulmonary TB Encounter for screening for other viral diseases ADHD Hypertension Psoriatic arthritis Obstructive sleep apnea Normal pressure hydrocephalus Restless leg syndrome Diabetic retinopathy Psoriasis Diabetes Surgical History H/O umbilical hernia repair History of cholecystectomy (07/26/22) Family History Family History Father Myocardial infarct Diabetes Mother Arthritis Social History Social History Household Members: Other Household Members Other:: pt is currently in [facility] Housing: Correction Do you presently have visiting nurse or other home services: No Alcohol intake: never Patient Tobacco Use Status: Never used Tobacco e-Cigarette/Vaping Use: Never Used Advance Directives: Yes Advance Directives on File: Yes Advance Directives Date on File: 08/07/22 service: No Current occupational status: 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 Physical Exam ED Vital Signs: Vital Signs - 24 hr 01/12/25 12:09 Temperature 98 F Pulse Rate 67 Respiratory Rate 18 Blood Pressure 137/63 Pulse Oximetry 97 Oxygen Delivery Method Room Air BMI result Body Mass Index 25.8 Const General: healthy appearing, comfortable, no acute distress, alert and awake Orientation/consciousness: patient oriented x3 HENMT Head: Yes normocephalic and Yes atraumatic Eyes Eyelids: Yes eyelids normal Conjunctivae: conjunctivae normal Sclerae: sclerae normal Corneas: corneas normal Pupils: Equal, round and reactive pupils present EOM: EOMs intact bilaterally Neck Neck: Yes full ROM Resp Effort & Inspection: normal respiratory effort, able to speak in complete sentences and not labored Skin Other: There is some purplish discoloration to both lower extremities, right is slightly greater than left. All toes of both feet very involved. No beefy red erythema no tenderness to palpation. No deformities. General skin exam: elasticity normal Neuro General: patient oriented x3 Cranial nerves: Yes Equal, round and reactive pupils present and Yes Bilaterally intact EOM present Cognition (Neuro): normal cognition Extrem Other: Moving all extremities well without any obvious deformities Course Course Course Narrative: RME, this is a rapid medical exam performed by Brandon Bravo please refer to primary provider for complete H&P- 80-year-old male history of diabetes, AFib on Eliquis, peripheral artery disease presents for evaluation of purple feet. He has a history of severe peripheral artery disease in his a skilled nursing. The staff felt his legs were more purple than usual over the last week or so. He did have an appointment today with Dr. Mendoza, vascular surgery but he missed it because his transportation was late. The patient denies any pain, he does have faint, 1+ dorsalis pedis pulses. Plan to discuss with Dr. Mendoza 12:28 PM 01/12/2025 (Lawrence MCGRATH): Discussed with Dr. Mendoza who recommends repeat arterial ultrasound. These will be ordered and basic labs as well Medical Decision Making Medical Decision Making [facility] Narrative: 80-year-old male with past medical history as above presents for evaluation of discoloration to his legs. He has known severe peripheral artery disease. I reviewed his ultrasound from July which showed the same. I reached out to Dr. Mendoza as the patient was supposed to have an appointment with a any ways. The patient has no discomfort, read labs in his lactate is within normal limits. Ultrasound appears to show some worsening her on your disease. He is already anticoagulated. I discussed with Dr. Mendoza who recommends discharge and the patient will follow up Differential Diagnosis Differential Diagnoses: The differential diagnosis associated with the presentation includes Peripheral artery disease Ischemic limb DVT Cellulitis less likely Lab Data [facility] Lab Attestation statement: I reviewed the patient's lab results. No leukocytosis, a stable, mild anemia. Normal platelet count. No electrolyte abnormalities warranting intervention. 01/12/25 13:46 01/12/25 13:46 Labs: Lab Results 01/12/25 Range/Units 13:46 WBC 9.3 (4.8-10.8) X10*3/uL RBC 4.74 (4.60-5.80) X10*6/uL Hgb 13.7 L (14.0-18.0) g/dl Hct 41.9 L (42.0-52.0) % MCV 88.4 (80.0-98.0) fL MCH 28.9 (27.0-33.0) pg MCHC 32.7 (31.0-36.0) g/dl RDW 15.6 (11.0-16.0) % Plt Count 279 (160-400) X10*3/uL MPV 9.5 (9.4-12.4) fL Immature Gran % (Auto) 0.8 H (0.0-0.4) % Neut % (Auto) 67.4 (45-73) % Lymph % (Auto) 18.3 L (20-40) % [place] % (Auto) 10.2 (2-11) % Eos % (Auto) 3.0 (0-4) % Baso % (Auto) 0.3 (0-2) % Lymph # (Auto) 1.7 (1.2-4.9) X10*3/uL [place] # (Auto) 1.0 (0.1-1.2) X10*3/uL Eos # (Auto) 0.3 (0.0-0.4) X10*3/uL Baso # (Auto) 0.0 (0.0-0.2) X10*3/uL Abs Immat Gran (auto) 0.07 H (0.00-0.03) X10*3/uL Absolute Neuts (auto) 6.3 (2.0-8.3) x10*3/uL Absolute Nucleated RBC 0.000 (0.0-0.012) X10*3/uL Nucleated RBC % (auto) 0.0 (0.0-0.2) /100WBC Sodium 135 (135-145) mmol/L Potassium 4.4 (3.3-5.1) mmol/L Chloride 100 (96-108) mmol/L Carbon Dioxide 24 (22-29) mmol/L Anion Gap 15 (12-20) BUN 22 H (9-16) mg/dL Creatinine 1.04 (0.5-1.4) mg/dL Estim Creat Clear Calc 55.7 Estimated GFR > 60 Random Glucose 100 (60-115) mg/dL Lactic Acid 1.7 (0.5-2.0) mmol/L Calcium 9.5 D (8.4-10.2) mg/dL Total Bilirubin 0.4 (0.0-1.0) mg/dL AST 30 (5-37) U/L ALT 47 H (0-40) U/L Alkaline Phosphatase 163 H (39-117) U/L Total Protein 8.1 H (6.5-8.0) g/dL Albumin 4.0 (3.5-5.0) g/dL Radiology Impression Discussion of test interpretation with radiology: I have reviewed the radiologist's reading. Radiologist Impression: FINDINGS: DIRECT DUPLEX DOPPLER FINDINGS: RIGHT LEG: Common femoral artery: 88 cm/s, phasicity: Biphasic. Profunda femoris artery: 71 cm/s, phasicity: Biphasic. Superficial femoral artery (proximal): 100 cm/s, phasicity: Biphasic. Superficial femoral artery (mid): 207 cm/s, phasicity: Biphasic. Superficial femoral artery (distal): 54 cm/s, phasicity: Biphasic. Popliteal artery: 51 cm/s, phasicity: Biphasic. Posterior tibial artery: 9 cm/s, phasicity: Monophasic and reversal. Peroneal artery: No color Doppler flow. Anterior tibial artery: 28 cm/s, phasicity: Monophasic and reversal Dorsalis pedis artery: 22 cm/s, phasicity:Monophasic. LEFT LEG: Common femoral artery: 117 cm/s, phasicity: Triphasic. Profunda femoris artery: 120 cm/s, phasicity: Triphasic. Superficial femoral artery (proximal): 89 cm/s, phasicity: Triphasic. Superficial femoral artery (mid): 77 cm/s, phasicity: Biphasic. Superficial femoral artery (distal): 72 cm/s, phasicity: Biphasic. Popliteal artery: 68 cm/s, phasicity: Biphasic. Posterior tibial artery: 64 cm/s, phasicity: Biphasic. Peroneal artery: No color Doppler flow. Anterior tibial artery: No color Doppler flow. Dorsalis pedis artery: 23 cm/s, phasicity: Monophasic. 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 Electronically signed by: Ion Hunter MD 01/12/2025 01:40 PM EDT Discharge Plan Discharge Clinical Impression: Arterial insufficiency of lower extremity Patient Disposition: Home, Self-Care Instructions: Peripheral Artery Disease (ED) Additional Instructions: Your blood work today is consistent with her baseline pain The arterial ultrasounds of both legs appear to have progressed to some worsening since your ultrasound from 5 months ago. Do not change any of your medications. Try to elevate your legs while resting. You should not stand stay in a seated position with her legs down for extended periods. Called Dr. Mendoza's office today or 1st thing tomorrow morning to schedule follow up Prescriptions: No Action allopurinol 100 mg tablet 200 mg PO DAILY Qty: 180 1RF Eliquis 5 mg Tablet 5 mg PO BID Qty: 60 0RF Enbrel SureClick 50 mg/mL (1 mL) pen injector 50 mg subcut FR sennosides [senna] 8.6 mg Tablet 8.6 mg PO DAILY PRN (Reason: Constipation) acetaminophen 325 mg Tablet 650 mg PO Q6H PRN (Reason: Fever Or Pain) loperamide 2 mg Tablet 2 mg PO Q4H PRN (Reason: Loose Stool) Rx Instructions: administer after each loose stool until symptoms controlled; do not exceed 8 mg per 24 hrs bupropion HCl 100 mg Tablet 100 mg PO BID insulin glargine [Lantus Solostar U-100 Insulin] 100 unit/mL (3 mL) insulin pen 28 unit subcut BEDTIME insulin lispro 100 unit/mL Insulin Pen See Protocol SUBCUT BIDAC Protocol: Insulin Correction Scale Less than or equal to 110 ---- Give (units): 0 111 to 150 Give (units): 0 151 to 200 Give (units): 0 201 to 250 Give (units): 2 251 to 300 Give (units): 4 301 to 350 Give (units): 6 Greater than 350 Give (units): 8 Call MD if Blood Glucose > : 400 Rx Instructions: before breakfast and dinner magnesium hydroxide 400 mg/5 mL Suspension 30 ml PO DAILY PRN (Reason: Constipation) bisacodyl 10 mg Suppository 10 mg ID DAILY PRN (Reason: Constipation) Fleet Enema 19-7 gram/118 mL Enema 118 ml ID DAILY PRN (Reason: Constipation) Acidophilus Capsule 10 mg PO DAILY dextrose [Glucose Gel] 40 % Gel 15 g PO Q15M PRN (Reason: Hypoglycemia) Rx Instructions: until symptoms of low blood sugar are controlled glucagon 1 mg Recon Soln 1 mg SUBCUT Q10M PRN (Reason: Hypoglycemia) Rx Instructions: until target blood sugar attained amlodipine 10 mg tablet 10 mg PO DAILY atorvastatin 20 mg tablet 20 mg PO DAILY furosemide 40 mg tablet 40 mg PO DAILY metoprolol tartrate 50 mg tablet 50 mg PO BID sertraline 25 mg tablet 25 mg PO DAILY (DME) FreeStyle Car 2 Sensor Kit See Rx Instructions .Route Rx Instructions: As directed Print Language: [place]
[2025-01-12 13:52] LABS: MANUAL DIFF FLAG NO
[2025-01-12 14:00] LABS: Hematocrit 41.9 % (42.0-52.0); Hemoglobin 13.7 g/dl (14.0-18.0); Imm Gran Abs Auto 0.07 X10*3/uL (0.00-0.03); Imm Gran Pct Auto 0.8 % (0.0-0.4); Lymphocytes Absolute Auto 1.7 X10*3/uL (1.2-4.9); Mean Corpuscular HGB Conc 32.7 g/dl (31.0-36.0); Mean Corpuscular Hemoglobin 28.9 pg (27.0-33.0); Mean Corpuscular Volume 88.4 fL (80.0-98.0); NRBC Abs Auto 0.000 X10*3/uL (0.0-0.012); NRBC Pct Auto 0.0 /100WBC (0.0-0.2); Platelet Count 279 X10*3/uL (160-400); Red Blood Count 4.74 X10*6/uL (4.60-5.80); White Blood Count 9.3 X10*3/uL (4.8-10.8)
[2025-01-12 14:24] LABS: Alanine Aminotransferase 47 U/L (0-40); Albumin Level 4.0 g/dL (3.5-5.0); Anion Gap 15 (12-20); Aspartate Amino Transferase 30 U/L (5-37); Blood Urea Nitrogen 22 mg/dL (9-16); Calcium 9.5 mg/dL (8.4-10.2); Carbon Dioxide 24 mmol/L (22-29); Chloride 100 mmol/L (96-108); Creatinine Clr Calc Pharmacy 55.7; Estimated Glomerular Filt Rate > 60; Potassium 4.4 mmol/L (3.3-5.1); Sodium 135 mmol/L (135-145); Total Protein 8.1 g/dL (6.5-8.0)
[2025-01-12 14:45] LABS: Alkaline Phosphatase 163 U/L (39-117)
--- OUTSIDE RECORDS SUMMARY | 2025-01-12 20:07 | XMS_ITS | Clinical Summary ---
Author Organization [address] Address [address] [place] [id number] Phone Care Team Providers Care Teacher Adventure Education Name Role Phone Jesenia Bynum MD Primary Care Provider [phone] Allergies Active Allergy Reactions Criticality Noted Date Comments Famotidine Hallucinations 07/22/2017 Medications allopurinoL (ZYLOPRIM) 100 mg tablet Take 1 Tablet by mouth daily. 4 Active atorvastatin (LIPITOR) 20 mg tablet Take 1 Tablet by mouth daily. Active etanercept (EnbreL SureClick) 50 mg/mL (1 mL) injection pen Inject as directed once a week. 4 Active metoprolol tartrate (Lopressor) 50 mg tablet TAKE 1 TABLET 2 TIMES DAILY 4 Active miscellaneous medical supply misc Inhale into the lungs. [employer]-pressur e 10-20 Active flash glucose sensor (FreeStyle Car 2 Sensor) kit 1 Device by Does not apply route every 14 days. 3 Active lisinopriL (PRINIVIL,ZESTR IL) 30 mg tablet TAKE 1 TABLET BY MOUTH EVERY DAY 90 tablet 1 5 Active sertraline (ZOLOFT) 25 mg tablet TAKE 1 TABLET BY MOUTH EVERY DAY 7 tablet 1 5 Active buPROPion SR (Wellbutrin SR) 100 mg 12 hr tablet TAKE 1 TABLET 2 TIMES DAILY 60 tablet 2 5 Active metFORMIN XR (GLUCOPHAGE-XR) 500 mg 24 hr tablet TAKE 2 TABLETS (1,000MG) 2 TIMES DAILY - GENERIC FOR GLUCOPHAGE XR 180 each 5 5 Active blood-glucose sensor (FreeStyle Car 2 Plus Sensor) device Inject 1 EA under the skin every 14 (fourteen) days. Replace sensor every 15 days, not 14. 2 each 11 5 Active Active Problems Problem Noted Date Diagnosed Date Impaired cognition 11/12/2022 Osteoarthritis of foot 07/02/2019 Overview (01/13/2024): At first MTP joints Normal pressure hydrocephalus ([facility] V24, [facility] V28) 07/24/2017 Overview (01/13/2024): SHEET COMBINING OPERATOR shunt placed 07/10 Diabetes with circulatory di sorder causing erectile dysfunction ([facility] [place], [facility] V28) 05/23/2015 Diabetic retinopathy ([facility] [place]24, [facility] V28) 05/08/2015 Type 2 diabetes mellitus wit h cataract ([facility] [place]24, [facility] V28) 05/08/2015 Osteoarthritis of lumbosacral spine 03/07/2015 CKD (chronic kidney disease) stage 3, GFR 30-59 ml/min ([facility] [place]24, [facility] V28) 01/01/2015 Obstructive sleep apnea 08/25/2013 RLS (restless legs syndrome) 04/13/2013 Nuclear sclerosis of both eyes 09/05/2011 Microalbuminuria 11/16/2010 Erectile dysfunction 09/09/2006 Attention deficit hyperactivity disorder (ADHD) 05/21/2005 Overview (01/13/2024): CT of head moderate trophy, moferate lat ventricla dilatation Hyperlipidemia 05/07/2005 Hypertension 05/07/2005 Psoriasis 05/07/2005 Psoriatic arthropathy ([facility] V24, [facility] V28) 05/07/2005 Overview (01/13/2024): Onset 2001? Not helped by sulfasalazine (08/27-01-30). 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 started 01/30. Enbrel added December 2008- Stopped 09/02(cost issues). Remicade started 02/02 but stopped 2018(cost issues) -methotrexate continued Last Assessment & Plan: Lab in January and March DM (diabetes mellitus), type 2 with renal complications ([facility] V24, [facility] V28) 05/07/2005 Overview (01/13/2024): Last Assessment & Plan: Checking Your Blood Sugars Please check your blood sugars every day. Please check your sugars at the following times of day: before breakfast, before lunch and before dinner Your Blood Sugar Goals Pre Meal: 90-130 2 hours after meals: 110-160 Bedtime: 110-150 Use the Results Bring your glucometer to every appointment Write your fingerstick blood sugars down on a log sheet or record book. Bring them to your appointment Look for patterns in the numbers. The results help you and your provider make decisions about your diabetes treatment plan. Your Results and your Goals Your Result / Date of Completion Your Goal / How Often to Assess Component Value Date HGBA1C 6.7 10/13/2013 Less than 7% --- 2-4 times per year BP Readings from Last 1 Encounters: 10/19/13 109/70 Less than 140/90 --- once per year Component Value Date MALBCR 6 08/28/2013 Less than 30 --- once per year Component Value Date LDL 115 05/06/2013 Less than 100 --- once per year Wt Readings from Last 1 Encounters: 10/19/13 202 lb 11.2 oz (91.944 kg) Your goal weight by next visit: 195 --- reassess 2-4 times a year Health Maintenance Due Topic Date Due ? Adult Immunization: Zostavax For Patients Over 60 2006 ? Adhd Care Plan 03/26/2012 ? Diabetes: Annual Foot Exam 02/25/2013 ? Diabetes: Annual Care Plan 05/09/2013 ? Diabetes: Annual Eye Exam 07/16/2013 Your Action Plan Your diabetes is well controlled and no changes are required to your current plan. Check blood glucose as directed and write down all results. Continue to work on weight loss with a goal of losing 2-4 pounds per month Contact me if you experience any barriers to care such as inability to purchase your medication, difficulty getting to your appointments or difficulty understanding your care plan When to Call your Healthcare Provider If your blood sugar falls below 70 and you do not know why or you become unconscious If you are sick and unable to take liquids because or nausea or vomiting If you have a fever over 101 If your blood sugar is 300 or higher on greater than 3 separate occasions during the same week If you are just unsure what to do Educational Resources [place] Diabetes Association (www.diabetes.org) Centers for Disease Control and Prevention (www.cdc.gov/diabetes) This care plan was created in collaboration with Miah Kang on 10/19/2013 Encounters Date Type Department Care Team Description 12/28/[address] [facility] [address] [place] [phone] Malcolm Thompson MD Type 2 diabetes mellitus without complications ([facility] V24, [facility] V28) 12/18/[address] [facility] [address] [place] [phone] Malcolm Thompson MD Other disorders of electrolyte and fluid balance, not elsewhere classified 12/15/[address] [facility] [address] [place] [phone] Malcolm Thompson MD Chronic kidney disease, stage 3 unspecified ([facility] V24, [facility]); Type 2 diabetes mellitus without complications ([facility] V24, [facility] V28) 10/23/[address] [facility] [address] [place] [phone] Malcolm Thompson MD Other disorders of electrolyte and fluid balance, not elsewhere classified from Last 3 Months Immunizations Immunization Administration Dates Next Due H1N1 Inj Preservative Free 02/28/2009 Influenza trivalent, 0.5mL ( Fluad) 65yo and older 12/14/2022,03/21/2022,12/06/2020,01/03,12/10/2018,11/28/2017,01/18/2017 ,01/09/2016,03/07/2015,03/02/2014,12/23,12/18/2011,12/07/2010, 0,02/28/2009,03/05/2006 Influenza trivalent, 0.5mL ( Fluzone High-dose) 65yo and older 02/14/2024 Influenza trivalent, 0.5mL, preservative free (Fluarix; FluLaval; Fluzone) ages 6mo and older (Afluria) 3 years and older 01/26/2008,02/24/2007,01/18/2005 Moderna Covid-19 Bivalent, O riginal + Ba.1 (Non-US Tradename Spikevax Bivalent) 03/21/2022 PPD Test 01/06/2013, 2,12/19/2010,11/24 Pneumococcal conjugate 13 va lent (Prevnar 13, PCV13) 2mo and older 07/05/2014 Pneumococcal polysaccharide 23 valent (Pneumovax 23) 2yo and older 02/11/2017,02/09/2008,01/24/2001 RSV, bivalent, protein subun it RSVpreF, 0.5mL, Preservative Free (Arexvy) 50yo and older 03/05/2023 Td Tetanus diptheria (Tdvax) 7yo and older 10/29/2018 Tdap Tetanus diptheria acell ular pertussis (Boostrix; Adacel) 7yo and older 05/27/2007 Zoster Live 12/14/2022 Surgical History Surgery Date Site/Laterality Comments HERNIA REPAIR 03/2006 PROCEDURE: REPAIR UMBILICAL HERNIA; COMMENT: times 3 COLONOSCOPY 10/13/07 PROCEDURE: MI COLONOSCOPY FLX DX W/COLLJ SPEC WHEN PFRMD; COMMENT: Up to cecum, good preparation, sigmoid diverticulosis, otherwise normal colon exam. Medical History Medical History Date Comments RLS (restless legs syndrome) 04/13/2013 DX: RLS (restless legs syndrome) Psoriatic arthropathy (CMS/H CC V24, CMS/HCC V28) 05/07/2005 DX:Psoriatic arthropathy (HC C); COMMENT: Onset 2001? Not helped by sulfasalazine (08/27-01-30). 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 started 01/30. Enbrel added December 2008- Stopped 09/02(cost issues). Remicade started 02/02. Other psoriasis and similar disorders 05/07/2005 DX:Other psoriasis and similar disorders Obstructive sleep apnea (carlos lt) (pediatric) 08/25/2013 DX:Obstructive sleep apnea ( adult) (pediatric) Nuclear sclerosis of both eyes 09/05/2011 D X:Nuclear sclerosis of both eyes Hypertension 05/07/2005 DX:Hypertension Erectile dysfunction 09/09/2006 DX:Erectile dysfunction Type II or unspecified type diabetes mellitus with ophthalmic manifestations, uncontrolled(250.52) ([facility] V24, [facility] V28) 09/05/2011 DX:Type II or unspecified t ype diabetes mellitus with ophthalmic manifestations, uncontrolled(250.52) ([facility]) DM (diabetes mellitus), type 2, uncontrolled, with renal complications 05/07/2005 DX:DM (diabetes mellitus), type 2, uncontrolled, with renal complications DM (diabetes mellitus) type II uncontrolled, periph vascular disorder 09/05/2011 DX:DM (diabetes mellitus) type II uncontrolled, periph vascular disorder Attention deficit disorder w ith hyperactivity(314.01) 05/21/2005 DX:Attention deficit disorde r with hyperactivity(314.01); COMMENT: CT of head moderate trophy, moferate lat ventricla dilatation Hyperlipidemia 05/07/2005 DX:Hyperlipidemi a Diabetic retinopathy ([facility], [facility] V28) 05/08/2015 DX:Diabetic retinopathy ([facility] ) Type 2 diabetes mellitus wit h cataract ([facility]24, [facility] V28) 05/08/2015 DX:Type 2 diabetes mellitus with cataract ([facility]) Proteinuria 08/19/2014 DX:Proteinuria Normal pressure hydrocephalu s ([facility]24, [facility] V28) 07/24/2017 DX:Normal pressure hydroceph alus ([facility]); COMMENT: SHEET COMBINING OPERATOR shunt placed 07/10 Osteoarthritis of foot 07/02/2019 DX:Osteoa rthritis of foot; COMMENT: At first MTP joints Family History Medical History Relation Name Comments Diabetes Father diet controlled Heart attack Father age 65, heavy d wil Arthritis Mother Other: alzeheimer Uncle Blindness Neg Hx Cataracts Neg Hx Glaucoma Neg Hx Macular degeneration Neg Hx Strabismus Neg Hx Relation Name Status Comments Father Mother Uncle Social History Tobacco Use Types Packs/Day Years Used Date Smoking Tobacco: Never Smokeless Tobacco: Never Tobacco Cessation:Counseling Given: Not Answered Alcohol Use Standard Drinks/Week Comments Not Asked [...] for your loved ones. For example, child care worker or elderly care for an older adult? [...] Date Recorded What is your living situation? Unrecognized valu e 06/10/2024 Sex and Gender Information Value Date Recorded Sex Assigned at Not on file Legal Sex Male 1:05 AM EST Gender Identity Not on file Sexual Orientation Not on file Obstetrics History Last Filed Vital Signs Vital Sign Reading Time Taken Comments Blood Pressure 132/72 08/20/2024 10:26 AM EDT Pulse 74 08/20/2024 10:26 AM EDT Temperature 35.9 C (96.6 F) 08/20/2024 10:26 AM EDT Respiratory Rate 20 06/11/2024 10:36 AM EDT Oxygen Saturation 93% 08/20/2024 10:26 AM EDT Inhaled Oxygen Concentration - - Weight 79.1 kg (174 lb 6.4 oz) 08/20/2024 10:26 AM EDT Height 170.2 cm (5' 7 ) 08/20/2024 10:26 AM EDT Body Mass Index 27.31 08/20/2024 10:26 AM EDT Plan of Treatment Health Maintenance Due Date Last Done Comments Diabetes: Annual Foot Exam 01/11/1955 Diabetes: Annual Retina Eye Exam 01[birth year]11/1955 Falls Risk Assessment 03/03/2022 Medicare Annual Wellness Visit 03/03/2022 Zoster Vaccines (1 of 2) 02/08/2023 12/14/2022 Diabetes: Annual Urine Albumin-Creatinine Ratio (uACR) 08/12/2024 08/13/2023 COVID-19 Vaccine (7 - Pfizer risk 2023- season) 2024 02/14/2024, 02/05/2023, 03/21/2022, Additional history exists Influenza Vaccine (#1) 2024 , 12/14/2022, 03/21/2022, Additional history exists Social Influencers of Health Screening 06/10/2025 06/10/2024 Diabetes: Blood Sugar Control Test (HGBA1C) 06/14/2025 12/15/2024, 08/20/2024, 08/13/2023, Additional history exists Diabetes: Annual GFR (Glomerular Filtration Rate) 12/18/2025 12/18/2024, 12/15/2024, 10/23/2024, Additional history exists Hypertension/CHF/CAD Annual BMP Blood Test 12/18/2025 12/18/2024, 12/15/2024, 10/23/2024, Additional history exists DTaP,Tdap,and Td Vaccines (3 - Td or Tdap) 10/29/2028 10/29/2018, 05/27/2007 Cholesterol Screening (Lipid Panel) 08/20/2029 08/20/2024, 08/13/2023, 08/13/2023 Pneumococcal Vaccine: 50+ Years Completed 02/11/2017, 07/05/2014, 02/09/2008, Additional history exists Hepatitis C Screening Completed 07/24/2017 RSV Immunization Adult Patients Completed 03/05/2023 Depression Screening Completed 06/10/2024 HIB Vaccines Aged Out No longer eligi ble based on patient's age to complete this topic HPV Vaccines Aged Out No longer eligi ble based on patient's age to complete this topic Hepatitis A Vaccines Aged Out No long er eligible based on patient's age to complete this topic Hepatitis B Vaccines Aged Out No long er eligible based on patient's age to complete this topic IPV Vaccines Aged Out No longer eligi ble based on patient's age to complete this topic MMR Vaccines Aged Out No longer eligi ble based on patient's age to complete this topic Meningococcal ACWY Vaccine Aged Out N o longer eligible based on patient's age to complete this topic Meningococcal B Vaccine Aged Out No l onger eligible based on patient's age to complete this topic RSV Immunization Patients Under 20 months Aged Out No longer eligible based on patient's age to complete this topic Varicella Vaccines Aged Out No longer eligible based on patient's age to complete this topic Procedures Procedure Name Priority Date/Time Associated Diagnosis Comments LAVENDER - EDTA Routine 12/28/2024 5:21 AM EDT Type 2 diabetes mellitus without complications (CMS/HCC V24, CMS/HCC V28) BASIC METABOLIC PANEL Routine 12/18/2024 7:13 AM EDT Other disorders of electrolyte and fluid balance, not elsewhere classified HEMOGLOBIN A1C Routine 12/15/2024 6:44 AM EDT Chronic kidney disease, stage 3 unspecified (CMS/HCC V24, CMS/HCC V28) Type 2 diabetes mellitus without complications (CMS/HCC V24, CMS/HCC V28) BASIC METABOLIC PANEL Routine 12/15/2024 6:44 AM EDT Chronic kidney disease, stage 3 unspecified (CMS/HCC V24, CMS/HCC V28) Type 2 diabetes mellitus without complications (CMS/HCC V24, CMS/HCC V28) BASIC METABOLIC PANEL Routine 10/23/2024 7:40 AM EDT Other disorders of electrolyte and fluid balance, not elsewhere classified LIPID PANEL WITH REFLEX TO DIRECT LDL Routine 08/20/2024 11:26 AM EDT Type 2 diabetes mellitus with cataract (CMS/HCC V24, CMS/HCC V28) URINE ALBUMIN CREATININE RATIO Routine 08/13/2023 HEPATITIS C SCREENING Routine 07/24/2017 from Last 3 Months or Most Recently Relevant to Health Maintenance Results * Lavender tube (12/28/2024 5:21 AM EDT) Pathologist [facility] Extra Tube Hold for add-ons. 12/28/2024 1:01 PM EDT [facility] Comment:Auto resulted. Blood Venous blood specimen / Unknown 12/28/2024 5:21 AM EDT 12/28/2024 11:08 AM EDT us Malcolm Thompson MD LAB BLOOD ORDERABLES Final Resu lt [facility] [address] [place] [address], * (ABNORMAL) Basic metabolic panel (12/18/2024 7:13 AM EDT) Only the most recent of3 resultswithin the time period is included. Sodium 140 133 - 145 mmol/L LAB CHEMISTRY METHOD 12/18/2024 12:04 PM [facility] Potassium 4.1 3.5 - 5.5 mmol/L LAB CHEMISTRY METHOD 12/18/2024 12:04 PM [facility] Chloride 103 96 - 110 mmol/L LAB CHEMISTRY METHOD 12/18/2024 12:04 PM [facility] CO2 31 21 - 32 mmol/L LAB CHEMISTRY METHOD 12/18/2024 12:04 PM [facility] Anion Gap 6 3 - 11 LAB CHEMISTRY METHOD 12/18/2024 12:04 PM [facility] Glucose 57(L) 70 - 100 mg/dL LAB CHEMISTRY METHOD 12/18/2024 12:04 PM [facility] BUN 25 5 - 25 mg/dL LAB CHEMISTRY METHOD 12/18/2024 12:04 PM [facility] Creatinine 1.06 0.70 - 1.30 mg/dL LAB CHEMISTRY METHOD 12/18/2024 12:04 PM [facility] eGFR 72 >=60 mL/min/1. 73m2 LAB CHEMISTRY METHOD 12/18/2024 12:04 PM [facility] Comment:Calculation based on the Chronic Kidney Disease Epidemiology Collaboration (CKD-EPI) equation refit without adjustment for race. BUN/Creatinine Ratio 23.6 LAB CHEMISTRY METHOD 12/18/2024 12:04 PM [facility] Calcium 8.7 8.5 - 10.5 mg/dL LAB CHEMISTRY METHOD 12/18/2024 12:04 PM [facility] Blood Venous blood specimen / Unknown Venipuncture / Unknown 12/18/2024 7:13 AM EDT 12/18/2024 9:16 AM EDT us Malcolm Thompson MD LAB BLOOD ORDERABLES Final Resu lt [facility] [address] [place] [address], [place] [phone] * (ABNORMAL) Hemoglobin A1c (12/15/2024 6:44 AM EDT) Pathologist [facility] Hemoglobin A1C 9.8(H) <6.5 % LAB CHEMISTRY METHOD 12/15/2024 11:03 AM EDT [facility] Mean Bld Glu Estim. 235 mg/dL LAB CHEMISTRY METHOD 12/15/2024 11:03 AM EDT [facility] Blood Venous blood specimen / Unknown Venipuncture / Unknown 12/15/2024 6:44 AM EDT 12/15/2024 8:31 AM EDT Malcolm Thompson MD LAB BLOOD ORDERABLES Final Resu lt [facility] [address] [place] [address], [place] [phone] * Lipid panel with reflex to direct LDL (08/20/2024 11:26 AM EDT) [facility] Cholesterol 153 0 - 200 mg/dL LAB CHEMISTRY METHOD 08/20/2024 3:25 PM EDT [facility] Triglycerides 109 0 - 150 mg/dL LAB CHEMISTRY METHOD 08/20/2024 3:25 PM EDT [facility] HDL 44 >=40 mg/dL LAB CHEMISTRY METHOD 08/20/2024 3:25 PM EDT [facility] LDL Calculated 87 0 - 100 mg/dL LAB CHEMISTRY METHOD 08/20/2024 3:25 PM EDT [facility] VLDL Cholesterol Willis 21.8 mg/dL LAB CHEMISTRY METHOD 08/20/2024 3:25 PM EDT [facility] Non HDL Chol. (LDL+VLDL) 109 <145 mg/dL LAB CHEMISTRY METHOD 08/20/2024 3:25 PM EDT [facility] Chol/HDL Ratio 3.5 0.0 - 4.4 LAB CHEMISTRY METHOD 08/20/2024 3:25 PM EDT [facility] Blood Venous blood specimen / Unknown Venipuncture / Unknown 08/20/2024 11:26 AM EDT 08/20/2024 11:26 AM EDT Lorenza MCGRATH LAB BLOOD ORDERABLES Final Result [facility] [address] [place] [address], * Urine Albumin Creatinine Ratio (08/13/2023) Urine Albumin Creatinine Ratio abstracted Historical Provider HEALTH MAINTENANCE Final Result * Hepatitis C Screening (07/24/2017) Hepatitis C Screening abstracted Historical Provider HEALTH MAINTENANCE Final Result from Last 3 Months or Most Recently Relevant to Health Maintenance Insurance [employer] [place] [employer] [place]ICAID - [place] Care Teams Teacher Adventure Education Relationship Specialty Start Date End Date Jesenia Bynum MD [address] [place] [address] PCP - General 02/12/00
--- OUTSIDE RECORDS SUMMARY | 2025-01-12 20:07 | XMS_ITS | Encounter Summary ---
Author Organization [facility] [place] [address] Care Team Providers Care Blasting Contract Miner Name Role Phone Jesenia Bynum MD Primary Care Provider [phone] Encounter Details Date Type Department Care Team (Late st Contact Info) Description 09/07/2024 Lab Requisition [facility] - Main Lab [address] [place] [address] Jordan Chung MD [address] [place] [address] Anemia, unspecified; Chronic kidney disease, stage 3 unspecified (CMS/HCC V24, CMS/HCC V28) Social History Tobacco Use Types Packs/Day Years [...] Record ed Within the last 3 months, [place] many times did you visit the emergency [...] for your loved ones. For example, child life assistant or elderly care for an older adult? [...] on file documented as of this encounter Plan of Treatment Not on file documented as of this encounter Procedures Procedure Name Priority Date/Time Associated Diagnosis Comments COMPLETE BLOOD COUNT Routine 09/08/2024 8:16 AM EDT Anemia, unspecified Chronic kidney disease, stage 3 unspecified ([facility] V24, [facility] V28) BASIC METABOLIC PANEL Routine 09/08/2024 8:16 AM EDT Anemia, unspecified Chronic kidney disease, stage 3 unspecified ([facility] V24, [facility] V28) documented in this encounter Results * (ABNORMAL) Complete blood count (09/08/2024 8:16 AM EDT) [facility] WBC 8.9 4.8 - 10.8 K/mcL LAB HEMETOLOGY METHOD 09/08/2024 11:[address] [facility] RBC 5.10 4.50 - 5.50 M/mcL LAB HEMETOLOGY METHOD 09/08/2024 11:[address] [facility] Hemoglobin 12.5(L) 13.5 - 17.5 g/dL LAB HEMETOLOGY METHOD 09/08/2024 11:[address] [facility] Hematocrit 41.0(L) 42.0 - 54.0 % LAB HEMETOLOGY METHOD 09/08/2024 11:[address] [facility] MCV 81.0 79.0 - 98.0 FL LAB HEMETOLOGY METHOD 09/08/2024 11:[address] [facility] MCH 24.7(L) 27.0 - 32.0 pcg LAB HEMETOLOGY METHOD 09/08/2024 11:[address] [facility] MCHC 30.5(L) 32.0 - 37.0 g/dL LAB HEMETOLOGY METHOD 09/08/2024 11:[address] [facility] RDW 18.9(H) 11.0 - 15.0 % LAB HEMETOLOGY METHOD 09/08/2024 11:[address] [facility] Platelets 266 130 - 400 K/mcL LAB HEMETOLOGY METHOD 09/08/2024 11:14 AM EDT [facility] MPV 9.9 7.0 - 11.0 FL LAB HEMETOLOGY METHOD 09/08/2024 11:14 AM EDT [facility] NRBC 0.0 <1.0 % LAB HEMETOLOGY METHOD 09/08/2024 11:14 AM EDT [facility] NRBC Absolute 0.00 <0.10 K/mcL LAB HEMETOLOGY METHOD 09/08/2024 11:14 AM EDT [facility] Blood Venous blood specimen / Unknown Venipuncture / Unknown 09/08/2024 8:16 AM EDT 09/08/2024 11:02 AM EDT us Jordan Chung MD LAB BLOOD ORDERABLES Final Result [facility] [address] [place] [address], * (ABNORMAL) Basic metabolic panel (09/08/2024 8:16 AM EDT) Sodium 138 133 - 145 mmol/L LAB CHEMISTRY METHOD 09/08/2024 1:[address] [facility] Potassium 4.1 3.5 - 5.5 mmol/L LAB CHEMISTRY METHOD 09/08/2024 1:[address] [facility] Chloride 104 96 - 110 mmol/L LAB CHEMISTRY METHOD 09/08/2024 1:[address] [facility] CO2 25 21 - 32 mmol/L LAB CHEMISTRY METHOD 09/08/2024 1:[address] [facility] Anion Gap 9 3 - 11 LAB CHEMISTRY METHOD 09/08/2024 1:[address] [facility] Glucose 128(H) 70 - 100 mg/dL LAB CHEMISTRY METHOD 09/08/2024 1:[address] [facility] BUN 26(H) 5 - 25 mg/dL LAB CHEMISTRY METHOD 09/08/2024 1:49 PM EDT [facility] Creatinine 1.20 0.70 - 1.30 mg/dL LAB CHEMISTRY METHOD 09/08/2024 1:49 PM EDT [facility] eGFR 62 >=60 mL/min/1. 73m2 LAB CHEMISTRY METHOD 09/08/2024 1:49 PM EDT [facility] Comment:Calculation based on the Chronic Kidney Disease Epidemiology Collaboration (CKD-EPI) equation refit without adjustment for race. BUN/Creatinine Ratio 21.7 LAB CHEMISTRY METHOD 09/08/2024 1:49 PM EDT [facility] Calcium 8.6 8.5 - 10.5 mg/dL LAB CHEMISTRY METHOD 09/08/2024 1:49 PM EDT [facility] Blood Venous blood specimen / Unknown Venipuncture / Unknown 09/08/2024 8:16 AM EDT 09/08/2024 11:02 AM EDT us Jordan Chung MD LAB BLOOD ORDERABLES Final Result [facility] [address] [place] [address], documented in this encounter Visit Diagnoses Diagnosis Anemia, unspecified Chronic kidney disease, stage 3 unspecified (CMS/HCC V24, CMS/HCC V28) documented in this encounter Additional Health Concerns Assessment Noted Time PHQ-9 Depression Total Score: 6 06/11/19 25 4:35 PM EDT documented as of this encounter Care Teams Blasting Contract Miner Relationship Specialty Start Date End Date Jesenia Bynum MD [address] [place] [address] PCP - General 02/12/00 documented as of this encounter
--- OUTSIDE RECORDS SUMMARY | 2025-01-12 20:07 | XMS_ITS | Encounter Summary ---
Author Organization [facility] [place] [address] Care Team Providers Care Residential Sales Name Role Phone Jesenia Bynum MD Primary Care Provider [phone] Encounter Details Date Type Department Care Team (Late st Contact Info) Description 10/23/[address] [facility] - Main Lab [address] [place] [address] Malcolm Thompson MD [address] [place] [phone] Other disorders of electrolyte and fluid balance, not elsewhere classified Social History Tobacco Use Types Packs/Day Years [...] care for your loved ones. For example, children counselor or elderly care for an older adult? [...] Procedure Name Priority Date/Time Associated Diagnosis Comments BASIC METABOLIC PANEL Routine 10/23/2024 7:40 AM EDT Other disorders of electrolyte and fluid balance, not elsewhere classified documented in this encounter Results * (ABNORMAL) Basic metabolic panel (10/23/2024 7:40 AM EDT) Sodium 136 133 - 145 mmol/L LAB CHEMISTRY METHOD 10/23/2024 10:39 AM [facility] Potassium 3.9 3.5 - 5.5 mmol/L LAB CHEMISTRY METHOD 10/23/2024 10:39 AM [facility] Chloride 101 96 - 110 mmol/L LAB CHEMISTRY METHOD 10/23/2024 10:39 AM [facility] CO2 30 21 - 32 mmol/L LAB CHEMISTRY METHOD 10/23/2024 10:39 AM [facility] Anion Gap 5 3 - 11 LAB CHEMISTRY METHOD 10/23/2024 10:39 AM [facility] Glucose 121(H) 70 - 100 mg/dL LAB CHEMISTRY METHOD 10/23/2024 10:39 AM [facility] BUN 27(H) 5 - 25 mg/dL LAB CHEMISTRY METHOD 10/23/2024 10:39 AM [facility] Creatinine 1.05 0.70 - 1.30 mg/dL LAB CHEMISTRY METHOD 10/23/2024 10:39 AM [facility] eGFR 73 >=60 mL/min/1. 73m2 LAB CHEMISTRY METHOD 10/23/2024 10:39 AM [facility] Comment:Calculation based on the Chronic Kidney Disease Epidemiology Collaboration (CKD-EPI) equation refit without adjustment for race. BUN/Creatinine Ratio 25.7 LAB CHEMISTRY METHOD 10/23/2024 10:39 AM [facility] Calcium 9.2 8.5 - 10.5 mg/dL LAB CHEMISTRY METHOD 10/23/2024 10:39 AM [facility] Blood Venous blood specimen / Unknown Venipuncture / Unknown 10/23/2024 7:40 AM EDT 10/23/2024 8:55 AM EDT us Malcolm Thompson MD LAB BLOOD ORDERABLES Final Resu lt [facility] [address] [place] [address], documented in this encounter Visit Diagnoses Diagnosis Other disorders of electrolyte and fluid balance, not elsewhere classified documented in this encounter Additional Health Concerns Assessment Noted Time PHQ-9 Depression Total Score: 6 06/11/19 25 4:35 PM EDT documented as of this encounter Care Teams Residential Sales Relationship Specialty Start Date End Date Jesenia Bynum MD [address] [place] [address] PCP - General 02/12/00 documented as of this encounter
--- OUTSIDE RECORDS SUMMARY | 2025-01-12 20:07 | XMS_ITS | Encounter Summary ---
Author Organization [facility] [place] [address] Care Team Providers Care Biometric Screener Name Role Phone Jesenia Bynum MD Primary Care Provider [phone] Encounter Details Date Type Department Care Team (Latest Contact Info) Description 12/28/2024 Lab Requisition [facility] - Main Lab [address] [place] [address] Malcolm Thompson MD [address] [place] [id number] Type 2 diabetes mellitus without complications (CMS/HCC V24, CMS/HCC V28) Social History Tobacco [...] care for your loved ones. For example, early childhood education worker or elderly care for an older [...] 2 diabetes mellitus without complications (CMS/HCC V24, CMS/[facility] V28) documented in this encounter Results * Lavender tube (12/28/2024 5:21 AM EDT) Extra Tube Hold for add-ons. 12/28/2024 1:01 PM EDT [facility] Comment:Auto resulted. Blood Venous blood specimen / Unknown 12/28/2024 5:21 AM EDT 12/28/2024 11:08 AM EDT us Malcolm Thompson MD LAB BLOOD ORDERABLES Final Resu lt [facility] [address] [place] [address], documented in this encounter Visit Diagnoses Diagnosis Type 2 diabetes mellitus without complications ([facility] V24, [facility] V28) documented in this encounter Additional Health Concerns Assessment Noted Time PHQ-9 Depression Total Score: 6 06/11/19 25 4:35 PM EDT documented as of this encounter Care Teams Biometric Screener Relationship Specialty Start Date End Date Jesenia Bynum MD [address] [place] [address] PCP - General 02/12/00 documented as of this encounter
--- OUTSIDE RECORDS SUMMARY | 2025-01-12 20:07 | XMS_ITS | Encounter Summary ---
Author Organization [facility] Address [address] [place] [address] Care Team Providers Care Acquisition Professional Name Role Phone Jesenia Bynum MD Primary Care Provider [phone] Encounter Details Date Type Department Care Team (Latest Contact Info) Description 12/15/2024 Lab Requisition [facility] - Main Lab [address] [place] [address] Malcolm Thompson MD [address] [place] [phone] Chronic kidney disease, stage 3 unspecified (CMS/HCC V24, CMS/HCC V28); Type 2 diabetes mellitus without complications (CMS/HCC [...] for your loved ones. For example, child abuse worker or elderly care for an older [...] Procedure Name Priority Date/Time Associated Diagnosis Comments HEMOGLOBIN A1C Routine 12/15/2024 6:44 AM EDT Chronic kidney disease, stage 3 unspecified ([facility] V24, [facility] V28) Type 2 diabetes mellitus without complications ([facility] V24, [facility] V28) BASIC METABOLIC PANEL Routine 12/15/2024 6:44 AM EDT Chronic kidney disease, stage 3 unspecified ([facility] V24, [facility] V28) Type 2 diabetes mellitus without complications ([facility] V24, [facility] V28) documented in this encounter Results * (ABNORMAL) Hemoglobin A1c (12/15/2024 6:44 AM EDT) Hemoglobin A1C 9.8(H) <6.5 % LAB CHEMISTRY METHOD 12/15/2024 11:03 AM EDT [facility] Mean Bld Glu Estim. 235 mg/dL LAB CHEMISTRY METHOD 12/15/2024 11:03 AM EDT [facility] Blood Venous blood specimen / Unknown Venipuncture / Unknown 12/15/2024 6:44 AM EDT 12/15/2024 8:31 AM EDT us Malcolm Thompson MD LAB BLOOD ORDERABLES Final Resu lt [facility] [address] [place] [address], * Basic metabolic panel (12/15/2024 6:44 AM EDT) Sodium 138 133 - 145 mmol/L LAB CHEMISTRY METHOD 12/15/2024 9:55 AM EDT [facility] Potassium 4.1 3.5 - 5.5 mmol/L LAB CHEMISTRY METHOD 12/15/2024 9:55 AM EDT [facility] Chloride 102 96 - 110 mmol/L LAB CHEMISTRY METHOD 12/15/2024 9:55 AM EDT [facility] CO2 30 21 - 32 mmol/L LAB CHEMISTRY METHOD 12/15/2024 9:55 AM EDT [facility] Anion Gap 6 3 - 11 LAB CHEMISTRY METHOD 12/15/2024 9:55 AM EDT [facility] Glucose 74 70 - 100 mg/dL LAB CHEMISTRY METHOD 12/15/2024 9:55 AM [facility] BUN 23 5 - 25 mg/dL LAB CHEMISTRY METHOD 12/15/2024 9:55 AM T [facility] Creatinine 0.94 0.70 - 1.30 mg/dL LAB CHEMISTRY METHOD 12/15/2024 9:55 AM [facility] eGFR 83 >=60 mL/min/1. 73m2 LAB CHEMISTRY METHOD 12/15/2024 9:55 AM [facility] Comment:Calculation based on the Chronic Kidney Disease Epidemiology Collaboration (CKD-EPI) equation refit without adjustment for race. BUN/Creatinine Ratio 24.5 LAB CHEMISTRY METHOD 12/15/2024 9:55 AM [facility] Calcium 9.1 8.5 - 10.5 mg/dL LAB CHEMISTRY METHOD 12/15/2024 9:55 AM [facility] Blood Venous blood specimen / Unknown Venipuncture / Unknown 12/15/2024 6:44 AM EDT 12/15/2024 8:31 AM EDT us Malcolm Thompson MD LAB BLOOD ORDERABLES Final Resu lt [facility] [address] [place] [address], documented in this encounter Visit Diagnoses Diagnosis Chronic kidney disease, stage 3 unspecified (CMS/HCC V24, [facility] V28) Type 2 diabetes mellitus without complications ([facility] V24, [facility] V28) documented in this encounter Additional Health Concerns Assessment Noted Time PHQ-9 Depression Total Score: 6 06/11/19 25 4:35 PM EDT documented as of this encounter Care Teams Acquisition Professional Relationship Specialty Start Date End Date Jesenia Bynum MD [address] [place] [address] PCP - General 02/12/00 documented as of this encounter
--- OUTSIDE RECORDS SUMMARY | 2025-01-12 20:07 | XMS_ITS | Encounter Summary ---
Author Organization [facility] Address [address] [place] [address] Care Team Providers Care Poultry Husbandman Name Role Phone Jesenia Bynum MD Primary Care Provider [phone] Encounter Details Date Type Department Care Team (Late st Contact Info) Description 08/25/2024 Lab Requisition [facility] - Main Lab [address] [place] [address] Jordan Chung MD [address] [place] [address] Anemia, unspecified; Chronic kidney disease, unspecified; Type 2 diabetes mellitus without complications (CMS/HCC [...] care for your loved ones. For example, director child abuse therapy or elderly care for an older adult? [...] Associated Diagnosis Comments COMPLETE BLOOD COUNT Routine 08/25/2024 8:17 AM EDT Anemia, unspecified Chronic kidney disease, unspecified Type 2 diabetes mellitus without complications ([facility] V24, [facility] V28) COMPREHENSIVE METABOLIC PANEL Routine 08/25/2024 8:17 AM EDT Anemia, unspecified Chronic kidney disease, unspecified Type 2 diabetes mellitus without complications ([facility] V24, [facility] V28) documented in this encounter Results * (ABNORMAL) Comprehensive metabolic panel (08/25/2024 8:17 AM EDT) Pathologist [facility] Sodium 136 133 - 145 mmol/L LAB CHEMISTRY METHOD 08/25/2024 12:07 PM [facility] Potassium 4.2 3.5 - 5.5 mmol/L LAB CHEMISTRY METHOD 08/25/2024 12:07 PM [facility] Chloride 103 96 - 110 mmol/L LAB CHEMISTRY METHOD 08/25/2024 12:07 PM [facility] CO2 24 21 - 32 mmol/L LAB CHEMISTRY METHOD 08/25/2024 12:07 PM [facility] Anion Gap 9 3 - 11 LAB CHEMISTRY METHOD 08/25/2024 12:07 PM [facility] Glucose 70 70 - 100 mg/dL LAB CHEMISTRY METHOD 08/25/2024 12:07 PM [facility] BUN 52(H) 5 - 25 mg/dL LAB CHEMISTRY METHOD 08/25/2024 12:07 PM [facility] Creatinine 1.75(H) 0.70 - 1.30 mg/dL LAB CHEMISTRY METHOD 08/25/2024 12:07 PM [facility] eGFR 39(L) >=60 mL/min/1. 73m2 LAB CHEMISTRY METHOD 08/25/2024 12:07 PM [facility] Comment:Calculation based on the Chronic Kidney Disease Epidemiology Collaboration (CKD-EPI) equation refit without adjustment for race. BUN/Creatinine Ratio 29.7 LAB CHEMISTRY METHOD 08/25/2024 12:07 PM [facility] Calcium 8.8 8.5 - 10.5 mg/dL LAB CHEMISTRY METHOD 08/25/2024 12:07 PM [facility] AST (SGOT) 21 10 - 42 unit/L LAB CHEMISTRY METHOD 08/25/2024 12:07 PM [facility] ALT (SGPT) 28 10 - 60 unit/L LAB CHEMISTRY METHOD 08/25/2024 12:07 PM [facility] Alkaline Phosphatase 147(H) 42 - 121 unit/L LAB CHEMISTRY METHOD 08/25/2024 12:07 PM [facility] Total Protein 7.0 6.0 - 8.0 g/dL LAB CHEMISTRY METHOD 08/25/2024 12:07 PM [facility] Albumin 3.1(L) 3.2 - 5.0 g/dL LAB CHEMISTRY METHOD 08/25/2024 12:07 PM [facility] Total Bilirubin 0.4 0.0 - 1.4 mg/dL LAB CHEMISTRY METHOD 08/25/2024 12:07 PM [facility] Blood Venous blood specimen / Unknown Venipuncture / Unknown 08/25/2024 8:17 AM EDT 08/25/2024 10:23 AM EDT us Jordan Chung MD LAB BLOOD ORDERABLES Final Result [facility] [address] [place] [address], * (ABNORMAL) Complete blood count (08/25/2024 8:17 AM EDT) WBC 10.0 4.8 - 10.8 K/mcL LAB HEMETOLOGY METHOD 08/25/2024 11:36 AM EDT [facility] RBC 5.20 4.50 - 5.50 M/mcL LAB HEMETOLOGY METHOD 08/25/2024 11:36 AM [facility] Hemoglobin 12.8(L) 13.5 - 17.5 g/dL LAB HEMETOLOGY METHOD 08/25/2024 11:36 AM [facility] Hematocrit 42.4 42.0 - 54.0 % LAB HEMETOLOGY METHOD 08/25/2024 11:36 AM [facility] MCV 80.9 79.0 - 98.0 FL LAB HEMETOLOGY METHOD 08/25/2024 11:36 AM [facility] MCH 24.4(L) 27.0 - 32.0 pcg LAB HEMETOLOGY METHOD 08/25/2024 11:36 AM [facility] MCHC 30.2(L) 32.0 - 37.0 g/dL LAB HEMETOLOGY METHOD 08/25/2024 11:36 AM [facility] RDW 18.0(H) 11.0 - 15.0 % LAB HEMETOLOGY METHOD 08/25/2024 11:36 AM [facility] Platelets 284 130 - 400 K/mcL LAB HEMETOLOGY METHOD 08/25/2024 11:36 AM [facility] MPV 10.4 7.0 - 11.0 FL LAB HEMETOLOGY METHOD 08/25/2024 11:36 AM [facility] NRBC 0.0 <1.0 % LAB HEMETOLOGY METHOD 08/25/2024 11:36 AM [facility] NRBC Absolute 0.00 <0.10 K/mcL LAB HEMETOLOGY METHOD 08/25/2024 11:36 AM [facility] Blood Venous blood specimen / Unknown Venipuncture / Unknown 08/25/2024 8:17 AM EDT 08/25/2024 10:23 AM EDT us Jordan Chung MD LAB BLOOD ORDERABLES Final Result [facility] [address] [place] [address], documented in this encounter Visit Diagnoses Diagnosis Anemia, unspecified Chronic kidney disease, unspecified Type 2 diabetes mellitus without complications (CMS/HCC V24, CMS/HCC V28) documented in this encounter Additional Health Concerns Assessment Noted Time PHQ-9 Depression Total Score: 6 06/11/19 25 4:35 PM EDT documented as of this encounter Care Teams Poultry Husbandman Relationship Specialty Start Date End Date Jesenia Bynum MD [address] [place] [address] PCP - General 02/12/00 documented as of this encounter
--- OUTSIDE RECORDS SUMMARY | 2025-01-12 20:07 | XMS_ITS | Encounter Summary ---
Author Organization [facility] [place] [address] Care Team Providers Care Prefitter Name Role Phone Jesenia Bynum MD Primary Care Provider [phone] Encounter Details Date Type Department Care Team (Late st Contact Info) Description 09/14/2024 Lab Requisition [facility] - Main Lab [address] [place] [address] Jordan Chung MD [address] [place] [address] Anemia, unspecified; Chronic kidney disease, [...] care for your loved ones. For example, manager child or elderly care for an older adult? [...] Associated Diagnosis Comments COMPLETE BLOOD COUNT Routine 09/15/2024 5:14 AM EDT Anemia, unspecified Chronic kidney disease, stage 3 unspecified ([facility] V24, [facility] V28) BASIC METABOLIC PANEL Routine 09/15/2024 5:14 AM EDT Anemia, unspecified Chronic kidney disease, stage 3 unspecified ([facility] V24, [facility] V28) documented in this encounter Results * (ABNORMAL) Complete blood count (09/15/2024 5:14 AM EDT) [facility] WBC 8.7 4.8 - 10.8 K/mcL LAB HEMETOLOGY METHOD 09/15/2024 7:14 AM [facility] RBC 4.90 4.50 - 5.50 M/mcL LAB HEMETOLOGY METHOD 09/15/2024 7:14 AM [facility] Hemoglobin 12.3(L) 13.5 - 17.5 g/dL LAB HEMETOLOGY METHOD 09/15/2024 7:14 AM [facility] Hematocrit 40.2(L) 42.0 - 54.0 % LAB HEMETOLOGY METHOD 09/15/2024 7:14 AM [facility] MCV 81.4 79.0 - 98.0 FL LAB HEMETOLOGY METHOD 09/15/2024 7:14 AM [facility] MCH 24.9(L) 27.0 - 32.0 pcg LAB HEMETOLOGY METHOD 09/15/2024 7:14 AM [facility] MCHC 30.6(L) 32.0 - 37.0 g/dL LAB HEMETOLOGY METHOD 09/15/2024 7:14 AM [facility] RDW 18.9(H) 11.0 - 15.0 % LAB HEMETOLOGY METHOD 09/15/2024 7:14 AM [facility] Platelets 263 130 - 400 K/mcL LAB HEMETOLOGY METHOD 09/15/2024 7:[address] [facility] MPV 10.1 7.0 - 11.0 FL LAB HEMETOLOGY METHOD 09/15/2024 7:[address] [facility] NRBC 0.0 <1.0 % LAB HEMETOLOGY METHOD 09/15/2024 7:[address] [facility] NRBC Absolute 0.00 <0.10 K/mcL LAB HEMETOLOGY METHOD 09/15/2024 7:[address] [facility] Blood Venous blood specimen / Unknown Venipuncture / Unknown 09/15/2024 5:14 AM EDT 09/15/2024 5:57 AM EDT us Jordan Chung MD LAB BLOOD ORDERABLES Final Result [facility] [address] [place] [address], * (ABNORMAL) Basic metabolic panel (09/15/2024 5:14 AM EDT) Sodium 137 133 - 145 mmol/L LAB CHEMISTRY METHOD 09/15/2024 8:48 AM [facility] Potassium 3.9 3.5 - 5.5 mmol/L LAB CHEMISTRY METHOD 09/15/2024 8:48 AM [facility] Chloride 102 96 - 110 mmol/L LAB CHEMISTRY METHOD 09/15/2024 8:48 AM [facility] CO2 28 21 - 32 mmol/L LAB CHEMISTRY METHOD 09/15/2024 8:48 AM [facility] Anion Gap 7 3 - 11 LAB CHEMISTRY METHOD 09/15/2024 8:48 AM [facility] Glucose 114(H) 70 - 100 mg/dL LAB CHEMISTRY METHOD 09/15/2024 8:48 AM [facility] BUN 28(H) 5 - 25 mg/dL LAB CHEMISTRY METHOD 09/15/2024 8:[address] [facility] Creatinine 1.29 0.70 - 1.30 mg/dL LAB CHEMISTRY METHOD 09/15/2024 8:[address] [facility] eGFR 57(L) >=60 mL/min/1. 73m2 LAB CHEMISTRY METHOD 09/15/2024 8:[address] [facility] Comment:Calculation based on the Chronic Kidney Disease Epidemiology Collaboration (CKD-EPI) equation refit without adjustment for race. BUN/Creatinine Ratio 21.7 LAB CHEMISTRY METHOD 09/15/2024 8:[address] [facility] Calcium 9.0 8.5 - 10.5 mg/dL LAB CHEMISTRY METHOD 09/15/2024 8:[address] [facility] Blood Venous blood specimen / Unknown Venipuncture / Unknown 09/15/2024 5:14 AM EDT 09/15/2024 5:57 AM EDT us Jordan Chung MD LAB BLOOD ORDERABLES Final Result [facility] [address] [place] [address], documented in this encounter Visit Diagnoses Diagnosis Anemia, unspecified Chronic kidney disease, stage 3 unspecified (CMS/HCC V24, CMS/HCC V28) documented in this encounter Additional Health Concerns Assessment Noted Time PHQ-9 Depression Total Score: 6 06/11/19 25 4:35 PM EDT documented as of this encounter Care Teams Prefitter Relationship Specialty Start Date End Date Jesenia Bynum MD [address] [place] [address] PCP - General 02/12/00 documented as of this encounter
--- OUTSIDE RECORDS SUMMARY | 2025-01-12 20:07 | XMS_ITS | Encounter Summary ---
Author Organization [facility] [place] [address] Care Team Providers Care Lidder Name Role Phone Jesenia Bynum MD Primary Care Provider [phone] Encounter Details Date Type Department Care Team (Late st Contact Info) Description 10/08/2024 Lab Requisition [facility] - Main Lab [address] [place] [address] Malcolm Thompson MD [address] [place] [id number] Essential (primary) hypertension; Other disorders of electrolyte and fluid balance, [...] care for your loved ones. For example, children's literature professor or elderly care for an older adult? [...] Associated Diagnosis Comments COMPLETE BLOOD COUNT Routine 10/08/2024 6:36 AM EDT Essential (primary) hypertension Other disorders of electrolyte and fluid balance, not elsewhere classified BASIC METABOLIC PANEL Routine 10/08/2024 6:36 AM EDT Essential (primary) hypertension Other disorders of electrolyte and fluid balance, not elsewhere classified documented in this encounter Results * (ABNORMAL) Basic metabolic panel (10/08/2024 6:36 AM EDT) Sodium 136 133 - 145 mmol/L LAB CHEMISTRY METHOD 10/08/2024 9:[address] [facility] Potassium 4.2 3.5 - 5.5 mmol/L LAB CHEMISTRY METHOD 10/08/2024 9:[address] [facility] Chloride 104 96 - 110 mmol/L LAB CHEMISTRY METHOD 10/08/2024 9:[address] [facility] CO2 27 21 - 32 mmol/L LAB CHEMISTRY METHOD 10/08/2024 9:[address] [facility] Anion Gap 5 3 - 11 LAB CHEMISTRY METHOD 10/08/2024 9:[address] [facility] Glucose 141(H) 70 - 100 mg/dL LAB CHEMISTRY METHOD 10/08/2024 9:[address] [facility] BUN 23 5 - 25 mg/dL LAB CHEMISTRY METHOD 10/08/2024 9:[address] [facility] Creatinine 1.08 0.70 - 1.30 mg/dL LAB CHEMISTRY METHOD 10/08/2024 9:[address] [facility] eGFR 70 >=60 mL/min/1. 73m2 LAB CHEMISTRY METHOD 10/08/2024 9:[address] [facility] Comment:Calculation based on the Chronic Kidney Disease Epidemiology Collaboration (CKD-EPI) equation refit without adjustment for race. BUN/Creatinine Ratio 21.3 LAB CHEMISTRY METHOD 10/08/2024 9:[address] [facility] Calcium 8.9 8.5 - 10.5 mg/dL LAB CHEMISTRY METHOD 10/08/2024 9:15 AM EDT [facility] Blood Venous blood specimen / Unknown Venipuncture / Unknown 10/08/2024 6:36 AM EDT 10/08/2024 7:49 AM EDT us Malcolm Thompson MD LAB BLOOD ORDERABLES Final Resu lt [facility] [address] [place] [address], * (ABNORMAL) Complete blood count (10/08/2024 6:36 AM EDT) WBC 7.3 4.8 - 10.8 K/mcL LAB HEMETOLOGY METHOD 10/08/2024 8:20 AM EDT [facility] RBC 4.40(L) 4.50 - 5.50 M/mcL LAB HEMETOLOGY METHOD 10/08/2024 8:[address] [facility] Hemoglobin 11.2(L) 13.5 - 17.5 g/dL LAB HEMETOLOGY METHOD 10/08/2024 8:20 AM T [facility] Hematocrit 36.8(L) 42.0 - 54.0 % LAB HEMETOLOGY METHOD 10/08/2024 8:[address] [facility] MCV 83.3 79.0 - 98.0 FL LAB HEMETOLOGY METHOD 10/08/2024 8:20 AM EDT [facility] MCH 25.3(L) 27.0 - 32.0 pcg LAB HEMETOLOGY METHOD 10/08/2024 8:20 AM T [facility] MCHC 30.4(L) 32.0 - 37.0 g/dL LAB HEMETOLOGY METHOD 10/08/2024 8:[address] [facility] RDW 19.4(H) 11.0 - 15.0 % LAB HEMETOLOGY METHOD 10/08/2024 8:20 AM EDT [facility] Platelets 391 130 - 400 K/mcL LAB HEMETOLOGY METHOD 10/08/2024 8:20 AM EDT [facility] MPV 9.1 7.0 - 11.0 FL LAB HEMETOLOGY METHOD 10/08/2024 8:20 AM EDT [facility] NRBC 0.0 <1.0 % LAB HEMETOLOGY METHOD 10/08/2024 8:20 AM EDT [facility] NRBC Absolute 0.00 <0.10 K/mcL LAB HEMETOLOGY METHOD 10/08/2024 8:20 AM EDT [facility] Blood Venous blood specimen / Unknown Venipuncture / Unknown 10/08/2024 6:36 AM EDT 10/08/2024 7:49 AM EDT us Malcolm Thompson MD LAB BLOOD ORDERABLES Final Resu lt [facility] [address] [place] [address], documented in this encounter Visit Diagnoses Diagnosis Essential (primary) hypertension Unspecified essential hypertension Other disorders of electrolyte and fluid balance, not elsewhere classified documented in this encounter Additional Health Concerns Assessment Noted Time PHQ-9 Depression Total Score: 6 06/11/19 25 4:35 PM EDT documented as of this encounter Care Teams Lidder Relationship Specialty Start Date End Date Jesenia Bynum MD [address] [place] [address] PCP - General 02/12/00 documented as of this encounter
--- OUTSIDE RECORDS SUMMARY | 2025-01-12 20:07 | XMS_ITS | Encounter Summary ---
Author Organization [facility] [place] [address] Care Team Providers Care Plant Technician Name Role Phone Jesenia Bynum MD Primary Care Provider [phone] Encounter Details Date Type Department Care Team (Latest Contact Info) Description 09/30/2024 Lab Requisition [facility] - Main Lab [address] [place] [address] Malcolm Thompson MD [address] [place] [id number] Type 2 diabetes mellitus without complications (CMS/HCC [...] your loved ones. For example, child development teacher or elderly care for an older adult? [...] Associated Diagnosis Comments COMPLETE BLOOD COUNT Routine 09/30/2024 5:36 AM EDT Type 2 diabetes mellitus without complications ([facility] V24, [facility] V28) BASIC METABOLIC PANEL Routine 09/30/2024 5:36 AM EDT Type 2 diabetes mellitus without complications ([facility] V24, [facility] V28) documented in this encounter Results * Basic metabolic panel (09/30/2024 5:36 AM EDT) Sodium 138 133 - 145 mmol/L LAB CHEMISTRY METHOD 09/30/2024 9:38 AM [facility] Potassium 3.8 3.5 - 5.5 mmol/L LAB CHEMISTRY METHOD 09/30/2024 9:38 AM [facility] Chloride 102 96 - 110 mmol/L LAB CHEMISTRY METHOD 09/30/2024 9:38 AM [facility] CO2 27 21 - 32 mmol/L LAB CHEMISTRY METHOD 09/30/2024 9:38 AM [facility] Anion Gap 9 3 - 11 LAB CHEMISTRY METHOD 09/30/2024 9:38 AM [facility] Glucose 82 70 - 100 mg/dL LAB CHEMISTRY METHOD 09/30/2024 9:38 AM [facility] BUN 17 5 - 25 mg/dL LAB CHEMISTRY METHOD 09/30/2024 9:38 AM [facility] Creatinine 0.92 0.70 - 1.30 mg/dL LAB CHEMISTRY METHOD 09/30/2024 9:38 AM [facility] eGFR 85 >=60 mL/min/1. 73m2 LAB CHEMISTRY METHOD 09/30/2024 9:38 AM [facility] Comment:Calculation based on the Chronic Kidney Disease Epidemiology Collaboration (CKD-EPI) equation refit without adjustment for race. BUN/Creatinine Ratio 18.5 LAB CHEMISTRY METHOD 09/30/2024 9:38 AM [facility] Calcium 9.1 8.5 - 10.5 mg/dL LAB CHEMISTRY METHOD 09/30/2024 9:38 AM EDT [facility] Blood Venous blood specimen / Unknown Venipuncture / Unknown 09/30/2024 5:36 AM EDT 09/30/2024 8:29 AM EDT us Malcolm Thompson MD LAB BLOOD ORDERABLES Final Resu lt [facility] [address] [place] [address], * (ABNORMAL) Complete blood count (09/30/2024 5:36 AM EDT) WBC 8.1 4.8 - 10.8 K/mcL LAB HEMETOLOGY METHOD 09/30/2024 9:09 AM [facility] RBC 4.70 4.50 - 5.50 M/[facility] LAB HEMETOLOGY METHOD 09/30/2024 9:09 AM [facility] Hemoglobin 11.7(L) 13.5 - 17.5 g/dL LAB HEMETOLOGY METHOD 09/30/2024 9:09 AM [facility] Hematocrit 38.4(L) 42.0 - 54.0 % LAB HEMETOLOGY METHOD 09/30/2024 9:09 AM [facility] MCV 82.1 79.0 - 98.0 FL LAB HEMETOLOGY METHOD 09/30/2024 9:09 AM [facility] MCH 25.0(L) 27.0 - 32.0 pcg LAB HEMETOLOGY METHOD 09/30/2024 9:09 AM [facility] MCHC 30.5(L) 32.0 - 37.0 g/dL LAB HEMETOLOGY METHOD 09/30/2024 9:09 AM [facility] RDW 19.9(H) 11.0 - 15.0 % LAB HEMETOLOGY METHOD 09/30/2024 9:09 AM EDT [facility] Platelets 300 130 - 400 K/mcL LAB HEMETOLOGY METHOD 09/30/2024 9:09 AM EDT [facility] MPV 9.6 7.0 - 11.0 FL LAB HEMETOLOGY METHOD 09/30/2024 9:09 AM EDT [facility] NRBC 0.0 <1.0 % LAB HEMETOLOGY METHOD 09/30/2024 9:09 AM EDT [facility] NRBC Absolute 0.00 <0.10 K/mcL LAB HEMETOLOGY METHOD 09/30/2024 9:09 AM EDT [facility] Blood Venous blood specimen / Unknown Venipuncture / Unknown 09/30/2024 5:36 AM EDT 09/30/2024 8:29 AM EDT us Malcolm Thompson MD LAB BLOOD ORDERABLES Final Resu lt [facility] [address] [place] [address], documented in this encounter Visit Diagnoses Diagnosis Type 2 diabetes mellitus without complications (CMS/HCC V24, CMS/HCC V28) documented in this encounter Additional Health Concerns Assessment Noted Time PHQ-9 Depression Total Score: 6 06/11/19 25 4:35 PM EDT documented as of this encounter Care Teams Plant Technician Relationship Specialty Start Date End Date Jesenia Bynum MD [address] [place] [address] PCP - General 02/12/00 documented as of this encounter
--- OUTSIDE RECORDS SUMMARY | 2025-01-12 20:07 | XMS_ITS | Encounter Summary ---
Author Organization [facility] [place] [address] Care Team Providers Care Neurology Physician Assistant Name Role Phone Jesenia Bynum MD Primary Care Provider [phone] Encounter Details Date Type Department Care Team (Late st Contact Info) Description 12/18/2024 Lab Requisition [facility] - Main Lab [address] [place] [address] Malcolm Thompson MD [address] [place] [address] Other disorders of electrolyte and fluid balance, [...] for your loved ones. For example, child protection specialist or elderly care for an older adult? [...] Associated Diagnosis Comments BASIC METABOLIC PANEL Routine 12/18/2024 7:13 AM EDT Other disorders of electrolyte and fluid balance, not elsewhere classified documented in this encounter Results * (ABNORMAL) Basic metabolic panel (12/18/2024 7:13 AM EDT) Sodium 140 133 - 145 mmol/L LAB CHEMISTRY METHOD 12/18/2024 12:04 PM [facility] Potassium 4.1 3.5 - 5.5 mmol/L LAB CHEMISTRY METHOD 12/18/2024 12:04 PM [facility] Chloride 103 96 - 110 mmol/L LAB CHEMISTRY METHOD 12/18/2024 12:04 PM [facility] CO2 31 21 - 32 mmol/L LAB CHEMISTRY METHOD 12/18/2024 12:04 PM [facility] Anion Gap 6 3 - 11 LAB CHEMISTRY METHOD 12/18/2024 12:04 PM [facility] Glucose 57(L) 70 - 100 mg/dL LAB CHEMISTRY METHOD 12/18/2024 12:04 PM [facility] BUN 25 5 - 25 mg/dL LAB CHEMISTRY METHOD 12/18/2024 12:04 PM [facility] Creatinine 1.06 0.70 - 1.30 mg/dL LAB CHEMISTRY METHOD 12/18/2024 12:04 PM [facility] eGFR 72 >=60 mL/min/1. 73m2 LAB CHEMISTRY METHOD 12/18/2024 12:04 PM [facility] Comment:Calculation based on the Chronic Kidney Disease Epidemiology Collaboration (CKD-EPI) equation refit without adjustment for race. BUN/Creatinine Ratio 23.6 LAB CHEMISTRY METHOD 12/18/2024 12:04 PM [facility] Calcium 8.7 8.5 - 10.5 mg/dL LAB CHEMISTRY METHOD 12/18/2024 12:04 PM [facility] Blood Venous blood specimen / Unknown Venipuncture / Unknown 12/18/2024 7:13 AM EDT 12/18/2024 9:16 AM EDT us Malcolm Thompson MD LAB BLOOD ORDERABLES Final Resu lt [facility] [address] [place] [address], documented in this encounter Visit Diagnoses Diagnosis Other disorders of electrolyte and fluid balance, not elsewhere classified documented in this encounter Additional Health Concerns Assessment Noted Time PHQ-9 Depression Total Score: 6 06/11/19 25 4:35 PM EDT documented as of this encounter Care Teams Neurology Physician Assistant Relationship Specialty Start Date End Date Jesenia Bynum MD [address] [place] [address] PCP - General 02/12/00 documented as of this encounter
--- OUTSIDE RECORDS SUMMARY | 2025-01-12 20:07 | XMS_ITS | Encounter Summary ---
Author Organization [facility] Address [address] [place] [address] Care Team Providers Care Garnett Fixer Name Role Phone Jesenia Bynum MD Primary Care Provider [phone] Encounter Details Date Type Department Care Team (Late st Contact Info) Description 08/31/2024 Lab Requisition [facility] - Main Lab [address] [place] [address] Jordan Chung MD [address] [place] [address] Anemia, unspecified; Chronic kidney disease, [...] your loved ones. For example, early childhood or elderly care for an older adult? [...] on file documented as of this encounter Visit Diagnoses Diagnosis Anemia, unspecified Chronic kidney disease, stage 3 unspecified (CMS/HCC V24, CMS/HCC V28) documented in this encounter Additional Health Concerns Assessment Noted Time PHQ-9 Depression Total Score: 6 06/11/19 25 4:35 PM EDT documented as of this encounter Care Teams Garnett Fixer Relationship Specialty Start Date End Date Jesenia Bynum MD [address] [place] [id number] PCP - General 02/12/00 documented as of this encounter
--- OUTSIDE RECORDS SUMMARY | 2025-01-12 20:07 | XMS_ITS | Encounter Summary ---
Author Organization [facility] [place] [address] Care Team Providers Care Migratory Worker Name Role Phone Jesenia Bynum MD Primary Care Provider [phone] Reason for Visit * Reason Onset Date Comments call back 06/12/2024 Encounter Details Date Type Department Care Team (Late st Contact Info) Description 06/12/2024 Telephone Adult Medicine [facility] [address] [place] [phone] Jesenia Bynum MD [address] [place], [place] [phone] Social History Tobacco Use Types Packs/Day Years [...] as of this encounter Progress Notes * Lyndsay Morgan RN - 06/15/2024 2:48 PM EDT Called and spoke with pts daughter advised of message from pcp no further questions. * Kavon Mackenzie - 06/15/2024 10:41 AM EDT Patient's daughter is returning call. * Lyndsay Morgan RN - 06/15/2024 10:25 AM EDT Called sujata verma to return call * Jesenia Bynum MD - 06/15/2024 8:32 AM EDT Please let daughter know that they should follow the most recent medication list I provided, including the one after recent ER visit. If possible, monitor medication compliance (we discussed), blood pressure, urine output and follow closely with me * Caitie Maria - 06/12/2024 2:02 PM EDT Medication Problem: What is the name of the medication patient is having a problem with?: lisinopriL (PRINIVIL,ZESTRIL) 30 mg tablet What is the problem?: patient's daughter is calling and has questions regarding the prescriptions for his blood pressure. He was taking olmesartan (BENICAR) 40 mg tablet [[id number]] DISCONTINUED She is not aware when he stopped taking this one and the other med is Lopressor. Now prescribed Lisinopril. Please review and advise. Who is calling about the problem? : Other: Name of caller: Sujata Relationship to patient: daughter Is this a NEW medication?: no How long has the patient been taking this medication? unknown Who prescribed this medication for the patient? Dr. Bynum Who is patients PCP?: Jesenia Bynum MD Payor: [facility] [employer]ICA[employer]AGE / Plan: [facility] MEDICA[employer]AGE / Product Type: *No Product type* / documented in this encounter Plan of Treatment Not on file documented as of this encounter Visit Diagnoses Not on filedocumented in this encounter Additional Health Concerns Assessment Noted Time PHQ-9 Depression Total Score: 6 06/11/19 25 4:35 PM EDT documented as of this encounter Care Teams Migratory Worker Relationship Specialty Start Date End Date Jesenia Bynum MD [address] [place] [address] PCP - General 02/12/00 documented as of this encounter
== END 2025-01-12 15:50 | disposition home or self-care (01) ==
LOC: HO.ED 14:56
PROVIDERS: Physician Assistant; Emergency Provider Emergency Medicine; PCP Internal Medicine
DX: I77.1 Stricture of artery (principal); E11.9 Type 2 diabetes mellitus without complications; I48.91 Unspecified atrial fibrillation; Z79.01 Long term (current) use of anticoagulants; Z79.899 Other long term (current) drug therapy
CPT/HCPCS: 36415; 80053; 83605; 85025; 93925; 99281; 99283

== ENCOUNTER → 2025-01-12 12:28 | Outpatient (BNV) | payer MEDICARE, SELFPAY | PROVIDERS: PCP Internal Medicine; Visit Provider Radiology Diagnostic Radiology | DX: I73.9 Peripheral vascular disease, unspecified (principal) | CPT/HCPCS: 93925 ==